=== PATIENT | female | born 1965 | race Caucasian/White ===

== ENCOUNTER 2018-04-30 10:40 | Emergency (ER) | payer OTHER ==
[~2018-04-30] VITALS: Ht 170.2 cm; Wt 113.4 kg
[~2018-04-30 10:40] MED LIST: CRESTOR20 MG PO; CYMBALTA60 MG PO; GABAPENTIN600 MG PO; KEFLEX500 MG PO; LAMICTAL100 MG PO; LANTUS100 UNITS/ SUB-Q; METFORMIN HCL1000 MG PO; NOVOLOG100 UNIT/2; OMEPRAZOLE40 MG PO; PLAVIX75 MG PO; PROTONIX40 MG PO; XANAX0.5 MG PO; ZANAFLEX4 M1 PO; ZESTRIL2.5 MG PO
--- OUTSIDE RECORDS SUMMARY | 2018-04-30 10:42 | XMS ---
PreManage Notification: LINH PEDRAZA Security Appliance Adjuster Events No recent Security Events currently on file CRITERIA MET - [facility] - Has Care Guidelines CARE PROVIDERS Odette Carter Leadership Recruiter/Ear Nose And Throat Specialist 02/05/2018-Current PHONE: [phone] Odette Carter Primary Care 02/05/2018-Current PHONE: [phone] Isabela has no Care Guidelines for this patient. Care History Medical/Surgical 12/27/2017 [facility] - MINDY CHILDRESS RECEIVED ORDER FROM ED PHYSICIAN TO HELP PATIENT ESTABLISH WITH A PCP. PATIENT JUST MOVED TO THE AREA AND IS DIABETIC. - [place] CALLED AND LEFT PATIENT A VOICEMAIL ON 12/26/17. - W WILL SEND OUT NO PCP LETTER TO PATIENT. E.D. VISIT COUNT (12 MO.) 2 KRIS Huffman TOTAL 2 NOTE: Visits indicate total known visits. ED/UCC VISIT TRACKING (12 MO.) 04/30/2018 10:41 [facility] Garg [place] TYPE: Emergency COMPLAINT: - COLD SYMPTOMS 12/24/2017 20:15 [facility] [place] TYPE: Emergency COMPLAINT: - L FOOT PAIN/NO INJURY DIAGNOSES: - Personal history of nicotine dependence - Allergy status to penicillin - Other meterman (current) drug therapy - Hyperlipidemia, unspecified - Type 2 diabetes mellitus with diabetic neuropathy, unspecified - Non-pressure chronic ulcer of other part of left foot with unspecified severity - meterman (current) use of oral hypoglycemic drugs - Chronic obstructive pulmonary disease, unspecified - group home (current) use of insulin - Acute bronchitis, unspecified - Allergy status to narcotic agent status - Non-pressure chronic ulcer of other part of left foot with unspecified severity - Allergy status to other antibiotic agents status - Essential (primary) hypertension - Type 2 diabetes mellitus with foot ulcer INPATIENT VISIT TRACKING (12 MO.) No inpatient visits to display in this time frame [email or web address]
[2018-04-30] MEDS ORDERED: PIOGLITAZONE HC15 MG PO (11:04)
[2018-04-30] MEDS ORDERED: ATORVASTATIN CA80 MG PO (11:05)
[2018-04-30] MEDS ORDERED: COMBIVENT RESPIM4 GM INH (13:20)
[2018-04-30] MEDS ORDERED: DOXYCYCLINE HY100 MG PO (13:20)
[2018-04-30] MEDS ORDERED: PREDNISONE20 MG PO (13:20)
== END 2018-04-30 13:45 | disposition home or self-care (01) ==
LOC: ED 10:40
DX: J44.1 Chronic obstructive pulmonary disease with (acute) exacerbation (principal); E11.40 Type 2 diabetes mellitus with diabetic neuropathy, unspecified; I10 Essential (primary) hypertension; E78.5 Hyperlipidemia, unspecified; Z90.710 Acquired absence of both cervix and uterus; Z87.891 Personal history of nicotine dependence; Z88.0 Allergy status to penicillin; Z88.1 Allergy status to other antibiotic agents; Z88.5 Allergy status to narcotic agent; Z79.899 Other long term (current) drug therapy; Z79.4 Long term (current) use of insulin
CPT/HCPCS: 71046; 94640; 99283-25; J7512

== ENCOUNTER 2018-06-02 16:15 | Emergency (ER) | payer OTHER ==
[~2018-06-02] VITALS: Ht 170.2 cm; Wt 113.4 kg
--- OUTSIDE RECORDS SUMMARY | ~2018-06-02 | XMS | Clinical Summary ---
Demographics + + + | Address | [address] | | | [place] [address] | + + + | Home Phone | | + + + | Preferred Language | Unknown | + + + | Marital Status | Unknown | + + + | Christian Affiliation | Unknown | + + + | Race | Unknown | + + + | Ethnic Group | Unknown | + + + Author + + + | Author | [employer] | + + + | Organization | [facility] [employer] | + + + | Address | Unknown | + + + | Phone | Unavailable | + + + Care Team Providers + +------+ + | Care Patternmaker Helper Name | Role | Phone | + +------+ + | Shay Palomino DPM | PP | | + +------+ + Allergies Not on File Current Medications Not on file Active Problems Not on file Encounters +--------+ + + + + | Date | Type | Specialty | Care Team | Description | +--------+ + + + + | 04/24/ | Telephone | | [place], | | | 2019 | | | SOPHIA Orozco | | +--------+ + + + + from Last 3 Months Social History + +-------+ +--------+------+ | Tobacco [...] | + + + Plan of Treatment +--------+ + + + + | Date | Type | Specialty | Care Team | Description | +--------+ + + + + | 06/06/ | Appointment | | | | | 2018 | | | | | +--------+ + + + + | 06/06/ | Initial | | Joel Boucher MD | | | 2018 | consult | | [address] | | | | | | [place] | | | | | | [phone] | | | | | | | | +--------+ + + + + + + + + + | Health Maintenance | Due Date | Last Done | Comments | + + + + + | Vaccine: | 11/21/198 | | | | Dtap/Tdap/Td (1 - [...] Vaccine: Influenza | | | | | (#1) | 8 | | | + + + + [...] | + +--------+ +--------+ + + | MILO,LINH | Person | Self | [birth year] | Home: | [address] | | | al/[place] | | 1965 | [phone] | [place] [address] | | | [place] | | | [phone] | | + +--------+ +--------+ + +"
--- OUTSIDE RECORDS SUMMARY | ~2018-06-02 | XMS | Clinical Summary ---
Demographics + + + | Address | [address] | | | [place] [address] | + + + | Home Phone | | + + + | Preferred Language | Unknown | + + + | Marital Status | Unknown | + + + | Baptism Affiliation | Unknown | + + + | Race | Unknown | + + + | Ethnic Group | Unknown | + + + Author + + + | Author | [employer] | + + + | Organization | [facility] [employer] | + + + | Address | Unknown | + + + | Phone | Unavailable | + + + Care Team Providers + +------+ + | Care Processor Grain Name | Role | Phone | + [...] [place] | | | | | | [phone] | | | | | | | [...] | 1965 | [phone] | [place] [address] | | | [place] | | | [phone] | | + +--------+ +--------+ + +"
--- OUTSIDE RECORDS SUMMARY | ~2018-06-02 | XMS | Encounter Summary ---
Demographics + + + | Address | [address] | | | [place] [address] | + + + | Home Phone | | + + + | Preferred Language | Unknown | + + + | Marital Status | Unknown | + + + | Orthodoxy Affiliation | Unknown | + + + | Race | Unknown | + + + | Ethnic Group | Unknown | + + + Author + + + | Author | [employer] | + + + | Organization | [facility] | + + + | Address | Unknown | + + + | Phone | Unavailable | + + + Care Team Providers + +------+ + | Care Sweatband Perforator Name | Role | Phone | + +------+ + | Shay Palomino DPM | PCP | | + +------+ + Encounter Details +--------+ + + + + | Date | Type | Department | Care Team | Description | +--------+ + + + + | 04/24/ | Telephone | [facility] | [place], | | | 2018 | | Vascular Surgery | SOPHIA Orozco | | | | | [address] | | | | | | [place] | | | | | | [address] | | | | | | [phone] | | | +--------+ + + + [...] on file | | + + + as of this encounter Plan of Treatment +--------+ + + + + | Date | Type | Specialty | Care Team | Description | +--------+ + + + + | 06/06/ | Appointment | Radiology | | | | 2018 | | | | | +--------+ + + + + | 06/06/ | Initial | Vascular Surgery | Joel Boucher MD | | | 2019 | consult | | [address] | | | | | | [place] | | | | | | [phone] | | | | | | | | +--------+ + + + + + +--------+ + + | Name | Priori | Associated Diagnoses | Order Schedule | | | ty | | | + +--------+ + + | US Low Ext Art Bilat w KATHY | Routin | PVD (peripheral | Expected: | | resting | e | vascular disease) | 04/24/2018, Expires: | | | | ([facility]) | 06/22/2018 | + +--------+ + + as of this encounter Visit Diagnoses + + | Diagnosis | + + | PVD (peripheral vascular disease) ([facility]) - Primary | + + | Peripheral vascular disease, unspecified | + +"
--- OUTSIDE RECORDS SUMMARY | ~2018-06-02 | XMS | Encounter Summary ---
Demographics + + + | Address | [address] | | | [place] [address] | + + + | Home Phone | | + + + | Preferred Language | Unknown | + + + | Marital Status | Unknown | + + + | Scientology Affiliation | Unknown | + + + | Race | Unknown | + + + | Ethnic Group | Unknown | + + + Author + + + | Author | [employer] | + + + | Organization | [employer] | + + + | Address | Unknown | + + + | Phone | Unavailable | + + + Care Team Providers + +------+ + | Care Fisher Sponge Hooking Name | Role | Phone | + +------+ + | Shay Palomino DPM | PCP | | + +------+ + Encounter Details +--------+ + + + + | Date | Type | Department | Care Team | Description | +--------+ + + + + | 04/24/ | Telephone | [facility] | [place], | | | 2018 | | Vascular Surgery | SOPHIA Orozco | | | | | [address] | | | | | | [place] | | | | | | [address] | | | | | | [phone] | | | +--------+ + + + [...] [place] | | | | | | [id number] | | | | | | | [...] Expires: | | | | ([facility]) | 06/22/2018 | + +--------+ + + as of this encounter Visit Diagnoses + + | Diagnosis | + + | PVD (peripheral vascular disease) ([facility]) - Primary | + + | Peripheral vascular disease, unspecified | + +"
[~2018-06-02 16:15] MED LIST changes: +ATORVASTATIN CA80 MG PO; +COMBIVENT RESPIM4 GM INH; +DOXYCYCLINE HY100 MG PO; +PIOGLITAZONE HC15 MG PO; +PREDNISONE20 MG PO
--- OUTSIDE RECORDS SUMMARY | 2018-06-02 16:18 | XMS ---
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 Care History Medical/Surgical 12/27/2017 [facility] - MINDY CHILDRESS RECEIVED ORDER FROM ED PHYSICIAN TO HELP PATIENT ESTABLISH WITH A PCP. PATIENT JUST MOVED TO THE AREA AND IS DIABETIC. - [place] CALLED AND LEFT PATIENT A VOICEMAIL ON 12/26/17. - W WILL SEND OUT NO PCP LETTER TO PATIENT. [place] VISIT COUNT (12 MO.) 3 KRIS Huffman TOTAL 3 NOTE: Visits indicate total known visits. ED/UCC VISIT TRACKING (12 MO.) 06/02/2018 16:16 [facility] Garg [place] TYPE: Emergency COMPLAINT: - NAUSEA/VOMITTING/COUGH 04/30/2018 10:41 [facility] Garg [place] TYPE: Emergency COMPLAINT: - COLD SYMPTOMS DIAGNOSES: - Hyperlipidemia, unspecified - Personal history of nicotine dependence - Acquired absence of both cervix and uterus - Allergy status to narcotic agent status - Allergy status to penicillin - Allergy status to other antibiotic agents status - termite treater (current) use of insulin - Type 2 diabetes mellitus with diabetic neuropathy, unspecified - Other superintendent terminal (current) drug therapy - Chronic obstructive pulmonary disease with (acute) exacerbation - Cough - Essential (primary) hypertension 12/24/2017 20:15 [facility] [place] TYPE: Emergency COMPLAINT: - L FOOT PAIN/NO INJURY DIAGNOSES: - Personal history of nicotine dependence - Allergy status to penicillin - Other superintendent terminal (current) drug therapy - Hyperlipidemia, unspecified - Type 2 diabetes mellitus with diabetic neuropathy, unspecified - Non-pressure chronic ulcer of other part of left foot with unspecified severity - termite treater (current) use of oral hypoglycemic drugs - Chronic obstructive pulmonary disease, unspecified - longterm (current) use of insulin - Acute bronchitis, unspecified - Allergy status to narcotic agent status - Non-pressure chronic ulcer of other part of left foot with unspecified severity - Allergy status to other antibiotic agents status - Essential (primary) hypertension - Type 2 diabetes mellitus with foot ulcer INPATIENT VISIT TRACKING (12 MO.) No inpatient visits to display in this time frame [id number]
[2018-06-02] MEDS ORDERED: PROMETHAZINE HC25 M1 PO ×2 (17:22→18:53)
[2018-06-02] MEDS ORDERED: FLAGYL500 MG PO (18:49)
[2018-06-02] MEDS ORDERED: CIPRO500 MG PO (18:49)
== END 2018-06-02 19:45 | disposition home or self-care (01) ==
LOC: ED 16:15
DX: K57.32 Diverticulitis of large intestine without perforation or abscess without bleeding (principal); E11.40 Type 2 diabetes mellitus with diabetic neuropathy, unspecified; J44.9 Chronic obstructive pulmonary disease, unspecified; I10 Essential (primary) hypertension; E78.5 Hyperlipidemia, unspecified; Z87.891 Personal history of nicotine dependence; Z90.710 Acquired absence of both cervix and uterus; Z90.49 Acquired absence of other specified parts of digestive tract; Z88.0 Allergy status to penicillin; Z88.1 Allergy status to other antibiotic agents; Z88.5 Allergy status to narcotic agent; Z79.899 Other long term (current) drug therapy; Z79.84 Long term (current) use of oral hypoglycemic drugs
CPT/HCPCS: 74176; 80053; 83690; 85025; 96361; 96374; 96375; 99284-25; J1885; J2405; J2550; J7030

== ENCOUNTER 2019-05-12 17:53 | Emergency (ER) | payer OTHER ==
[~2019-05-12] VITALS: Ht 170.2 cm; Wt 119.8 kg
[~2019-05-12 17:53] MED LIST changes: +CIPRO500 MG PO; +FLAGYL500 MG PO; +INSULIN PEN NE1 EAC1 MISC; +PROMETHAZINE HC25 M1 PO
[2019-05-12] MEDS ORDERED: PREDNISONE20 MG PO (20:58)
--- NOTE | 2019-05-13 13:10 | EKG ---
[facility] [address], [place] [address] Signed Sinus tachycardia Left axis deviation Anterolateral infarct , possible, similar to 03/13/19 EKG. Abnormal ECG When compared with ECG of 13-MAR-2019 11:26, No significant change was found Confirmed by JOHN ARIZA MD ([id number]) on 05/13/2019 1:10:03 PM Electronically Signed By: JOHN ARIZA MD 05/13/19 1310 PATIENT NAME: LINH PEDRAZA Electrocardiogram DATE OF : 65 PHYSICIAN: JOHN ARIZA MD REPORT #: [id number] REPORT IS CONFIDENTIAL AND NOT TO BE RELEASED WITHOUT AUTHORIZATION
== END 2019-05-12 21:33 | disposition home or self-care (01) ==
LOC: ED 17:53
DX: J44.0 Chronic obstructive pulmonary disease with (acute) lower respiratory infection (principal); J20.9 Acute bronchitis, unspecified; E11.40 Type 2 diabetes mellitus with diabetic neuropathy, unspecified; I10 Essential (primary) hypertension; E78.5 Hyperlipidemia, unspecified; Z87.891 Personal history of nicotine dependence; Z88.0 Allergy status to penicillin; Z88.5 Allergy status to narcotic agent; Z79.899 Other long term (current) drug therapy
CPT/HCPCS: 71045; 80053; 83735; 83880; 84484; 85025; 87502; 93005; 93010; 94640; 96374; 96375; 99285-25; J1940; J2930

== ENCOUNTER 2019-07-16 22:51 | Emergency (ER) | payer OTHER ==
[~2019-07-16] VITALS: Ht 170.2 cm; Wt 120.3 kg
--- OUTSIDE RECORDS SUMMARY | ~2019-07-16 | XMS | Clinical Summary ---
Demographics + + + | Address | [address] | | | [place] [address] | + + + | Home Phone | | + + + | Preferred Language | Unknown | + + + | Marital Status | Unknown | + + + | Druze Affiliation | Unknown | + + + | Race | Unknown | + + + | Ethnic Group | Unknown | + + + Author + + + | Author | [facility] (Historical as of | | | 10-28-18) | + + + | Organization | [facility] (Historical as of | | | 10-28-18) | + + + | Address | Unknown | + + + | Phone | Unavailable | + + + Care Team Providers + +------+ + | Care Aviation Electrician Name | Role | Phone | + +------+ + | Shay Palomino DPM | PP | | + +------+ + Allergies Not on File Current Medications + + +-------+---------+------+------+-------+ | Prescription | Sig. | Disp. | Refills | Star | End | Statu | | | | | | t | Date | s | | | | | | Date | | | + + +-------+---------+------+------+-------+ | atorvastatin | Take 80 mg by mouth | | 0 | 02/0 | | Activ | | (LIPITOR) 80 MG | daily. | | | 6/20 | | e | | tablet | | | | 19 | | | + + +-------+---------+------+------+-------+ | clopidogrel | | | 0 | 02/0 | | Activ | | (PLAVIX) 75 MG | | | | 6/20 | | e | | tablet | | | | 19 | | | + + +-------+---------+------+------+-------+ | doxycycline | Take 100 mg by mouth | | 0 | 02/1 | | Activ | | (ADOXA) 100 MG | 2 (two) times | | | 7/20 | | e | | tablet | daily. | | | 19 | | | + + +-------+---------+------+------+-------+ | DULoxetine | | | 0 | 02/0 | | Activ | | (CYMBALTA) [address] | | | | 6/20 | | e | | capsule | | | | 19 | | | + + +-------+---------+------+------+-------+ | FLOVENT HFA 110 | 1 puff 2 (two) times | | 0 | 02/2 | | Activ | | MCG/ACT inhaler | daily. | | | 7/20 | | e | | | | | | 19 | | | + + +-------+---------+------+------+-------+ | LANTUS 100 UNIT/ML | | | 0 | 02/0 | | Activ | | injection | | | | 6/20 | | e | | | | | | 19 | | | + + +-------+---------+------+------+-------+ | levofloxacin | Take 500 mg by mouth | | 0 | 03/2 | | Activ | | (LEVAQUIN) 500 MG | daily. for 10 days | | | 3/20 | | e | | tablet | | | | 19 | | | + + +-------+---------+------+------+-------+ | lisinopril | | | 0 | 02/0 | | Activ | | (ZESTRIL) 10 MG | | | | 6/20 | | e | | tablet | | | | 19 | | | + + +-------+---------+------+------+-------+ | metFORMIN | | | 0 | 02/0 | | Activ | | (GLUCOPHAGE) 1000 MG | | | | 6/20 | | e | | tablet | | | | 19 | | | + + +-------+---------+------+------+-------+ | metroNIDAZOLE | Take 500 mg by mouth | | 0 | 03/2 | | Activ | | (FLAGYL) 500 MG | 3 (three) times | | | 3/20 | | e | | tablet | daily. | | | 19 | | | + + +-------+---------+------+------+-------+ | ondansetron | Take 8 mg by mouth | | 0 | 03/1 | | Activ | | (ZOFRAN) 8 MG tablet | every 8 (eight) | | | 3/20 | | e | | | hours as needed. FOR | | | 19 | | | | | NAUSEA | | | | | | + + +-------+---------+------+------+-------+ | pioglitazone | | | 0 | 02/0 | | Activ | | (ACTOS) 15 MG tablet | | | | 6/20 | | e | | | | | | 19 | | | + + +-------+---------+------+------+-------+ | predniSONE | TAKE 2 TABLETS BY | | 0 | 02/1 | | Activ | | (DELTASONE) 20 MG | MOUTH DAILY FOR 3 | | | 7/20 | | e | | tablet | DAYS THEN 1 DAILY | | | 19 | | | | | FOR 3 DAYS | | | | | | + + +-------+---------+------+------+-------+ | promethazine | Take 25 mg by mouth | | 0 | 03/2 | | Activ | | (PHENERGAN) 25 MG | 3 (three) times | | | 3/20 | | e | | tablet | daily. | | | 19 | | | + + +-------+---------+------+------+-------+ | ranitidine | Take 150 mg by mouth | | 0 | 02/2 | | Activ | | (ZANTAC) 150 MG | daily. | | | 1/20 | | e | | tablet | | | | 19 | | | + + +-------+---------+------+------+-------+ | tiZANidine | take 1/2 to 1 tablet | | 0 | 02/2 | | Activ | | (ZANAFLEX) 4 MG | by mouth three | | | 1/20 | | e | | tablet | times a day if | | | 19 | | | | | needed AND TOLERATED | | | | | | + + +-------+---------+------+------+-------+ Active Problems Not on file Social History + +-------+ +--------+------+ | Tobacco Use | Types | Packs/Day | Years | Date | | | | | Used | | + +-------+ +--------+------+ | Never Assessed | | | | | + +-------+ +--------+------+ + + + | Sex Assigned at | Date Recorded | | | | + + + | Not on file | | + + + Plan of Treatment + + + + + | Health Maintenance | Due Date | Last Done | Comments | + + + + + | Vaccine: | | | | | Dtap/Tdap/Td (1 - | 4 | | | | Tdap) | | | | + + + + + | Cervical Cancer | | | | | Screening (Pap) | 5 | | | + + + + + | Breast Cancer | | | | | Screening | 5 | | | | (Mammogram) | | | | + + + + + | Colon Cancer | | | | | Screening | 5 | | | | (Colonoscopy) | | | | + + + + + | Vaccine: Zoster (1 | | | | | of 2) | 5 | | | + + + + + | Vaccine: Influenza | | | | | (Season Ended) | 0 | | | + + + + + Results Not on filefrom Last 3 Months Insurance + +--------+ +------+-------+---------+ | Payer | Benefi | Subscriber | Type | Phone | Address | | | t Plan | ID | | | | | | / | | | | | | | Group | | | | | + +--------+ +------+-------+---------+ | [employer] | [employer] | | | | | | | HEALTH | | | | | | | PLAN | | | | | + +--------+ +------+-------+---------+ + +--------+ +--------+ + + | Guarantor Name | Accoun | Relation to | Date | Phone | Billing Address | | | t Type | Patient | of | | | | | | | | | | + +--------+ +--------+ + + | LINH PEDRAZA | Person | Self [birth year] | Home: | [address] | | | al/Fam | | 1965 | [phone] [place] [address] | | | [place] | | | [phone] | | + +--------+ +--------+ + +"
--- OUTSIDE RECORDS SUMMARY | ~2019-07-16 | XMS | Clinical Summary ---
Demographics + + + | Address | [address] | | | [place] [address] | + + + | Home Phone | | + + + | Preferred Language | Unknown | + + + | Marital Status | Unknown | + + + | Mormonism Affiliation | Unknown | + + + | Race | Unknown | + + + | Ethnic Group | Unknown | + + + Author + + + | Author | [facility] | | | and [place] | + + + | Organization | [facility] | | | and [place] | + + + | Address | Unknown | + + + | Phone | Unavailable | + + + Support + + +---------+ + | Name | Relationship | Address | Phone | + + +---------+ + | Hortensia Yin | ECON | Unknown | | + + +---------+ + Care Team Providers + +------+ + | Care Office Machine Servicer Name | Role | Phone | + +------+ + | Dawson Almaguer MD | PCP | | + +------+ + Allergies Not on File Medications + + + +---------+------+------+-------+ | Medication | Sig | Dispensed | Refills | Star | End | Statu | | | | | | t | Date | s | | | | | | Date | | | + + + +---------+------+------+-------+ | atorvaSTATin | Take 80 mg by mouth | | 0 | 02/0 | | Activ | | (LIPITOR) 80 MG | daily. | | | 6/20 | | e | | tablet | | | | 19 | | | + + + +---------+------+------+-------+ | clopidogrel | | | 0 | 02/0 | | Activ | | (PLAVIX) 75 mg | | | | 6/20 | | e | | tablet | | | | 19 | | | + + + +---------+------+------+-------+ | doxycycline | Take 100 mg by mouth | | 0 | 02/1 | | Activ | | (ADOXA) 100 MG | 2 (two) times | | | 7/20 | | e | | tablet | daily. | | | 19 | | | + + + +---------+------+------+-------+ | DULoxetine | | | 0 | 02/0 | | Activ | | (CYMBALTA) [address] | | | | 6/20 | | e | | capsule | | | | 19 | | | + + + +---------+------+------+-------+ | FLOVENT HFA 110 | 1 puff 2 (two) times | | 0 | 02/2 | | Activ | | MCG/ACT inhaler | daily. | | | 20 | | e | | | | | | 19 | | | + + + +---------+------+------+-------+ | LANTUS 100 UNIT/ML | | | 0 | 02/0 | | Activ | | injection (vial) | | | | 6/20 | | e | | | | | | 19 | | | + + + +---------+------+------+-------+ | levoFLOXacin | Take 500 mg by mouth | | 0 | 03/2 | | Activ | | (LEVAQUIN) 500 mg | daily. for 10 days | | | 3/20 | | e | | tablet | | | | 19 | | | + + + +---------+------+------+-------+ | lisinopril | | | 0 | 02/0 | | Activ | | (PRINIVIL, ZESTRIL) | | | | 6/20 | | e | | 10 mg tablet | | | | 19 | | | + + + +---------+------+------+-------+ | metFORMIN | | | 0 | 02/0 | | Activ | | (GLUCOPHAGE) 1000 MG | | | | 6/20 | | e | | tablet | | | | 19 | | | + + + +---------+------+------+-------+ | metroNIDAZOLE | Take 500 mg by mouth | | 0 | 03/2 | | Activ | | (FLAGYL) 500 MG | 3 (three) times | | | 3/20 | | e | | tablet | daily. | | | 19 | | | + + + +---------+------+------+-------+ | ondansetron | Take 8 mg by mouth | | 0 | 03/1 | | Activ | | (ZOFRAN) 8 MG tablet | every 8 (eight) | | | 3/20 | | e | | | hours as needed. FOR | | | 19 | | | | | NAUSEA | | | | | | + + + +---------+------+------+-------+ | pioglitazone | | | 0 | 02/0 | | Activ | | (ACTOS) 15 mg tablet | | | | 6/20 | | e | | | | | | 19 | | | + + + +---------+------+------+-------+ | predniSONE | TAKE 2 TABLETS BY | | 0 | 02/1 | | Activ | | (DELTASONE) 20 mg | MOUTH DAILY FOR 3 | | | 7/20 | | e | | tablet | DAYS THEN 1 DAILY | | | 19 | | | | | FOR 3 DAYS | | | | | | + + + +---------+------+------+-------+ | promethazine | Take 25 mg by mouth | | 0 | 03/2 | | Activ | | (PHENERGAN) 25 mg | 3 (three) times | | | 3/20 | | e | | tablet | daily. | | | 19 | | | + + + +---------+------+------+-------+ | raNITIdine | Take 150 mg by mouth | | 0 | 02/2 | | Activ | | (ZANTAC) 150 mg | daily. | | | 1/20 | | e | | tablet | | | | 19 | | | + + + +---------+------+------+-------+ | tiZANidine | take 1/2 to 1 tablet | | 0 | 02/2 | | Activ | | (ZANAFLEX) 4 mg | by mouth three | | | 1/20 | | e | | tablet | times a day if | | | 19 | | | | | needed AND TOLERATED | | | | | | + + + +---------+------+------+-------+ Active Problems Not on file Social History [...] on file | | + + + + + + + | Job Start Date | Occupation | Industry | + + + + | Not on file | Not on file | Not on file | + + + + + + + + | Travel History | Travel Start | Travel End | + + + + + + | No recent travel history available. | + + Last Filed Vital Signs Not on file Plan of Treatment + + + + + | Health Maintenance | Due Date | Last Done | Comments | + + + + + | Vaccine: | | | | | Dtap/Tdap/Td (1 - | 6 | | | | Tdap) | | | | + + + + + | Cervical Cancer | | | | | Screening (Pap) | 5 | | | + + + + + | Breast Cancer | | | | | Screening | 0 | | | + + + + + | Vaccine: Zoster (1 | | | | | of 2) | 5 | | | + + + + + | Vaccine: Influenza | | | | | (Season Ended) | 0 | | | + + + + + Results Not on filefrom Last 3 Months Insurance + +--------+ +--------+ +---------+--------+ | Payer | Benefi | Subscriber | Effect | Phone | Address | Type | | | t Plan | ID | curtis | | | | | | / | | Dates | | | | | | Group | | | | | | + +--------+ +--------+ +---------+--------+ | [employer] | MODA | [id number] | | [phone] | | Medica | | MEDICAID HMO | HEALTH | | [id number]-[id number] | 1 | | id | | | MDCD | | esent | | | | | | [place]MO [place] | | | | | | + +--------+ +--------+ +---------+--------+ + +--------+ +--------+ + + | Guarantor Name | Accoun | Relation to | Date | Phone | Billing Address | | | t Type | Patient | of | | | | | | | | | | + +--------+ +--------+ + + | Maria D Lorenzana | Person | Self [birth year] | [address] [facility] [address] | | | al/Fam | | 1965 | [phone] | [place] [address] | | | [place] | | | [address] (Home) | | + +--------+ +--------+ + +"
--- OUTSIDE RECORDS SUMMARY | ~2019-07-16 | XMS | Encounter Summary ---
Demographics + + + | Address | [address] | | | [place] [address] | + + + | Home Phone | | + + + | Preferred Language | Unknown | + + + | Marital Status | Unknown | + + + | Cheondoism Affiliation | Unknown | + + + | Race | Unknown | + + + | Ethnic Group | Unknown | + + + Author + + + | Author | [facility] | | | and [place] | + + + | Organization | [facility] | | | and [place] | [...] Team Providers + +------+ + | Care Aquaculture And Fisheries Professor Name | Role | Phone | + +------+ + | Dawson Almaguer MD | PCP | | + +------+ + Encounter Details +--------+ + + + + | Date | Type | Department | Care Team | Description | +--------+ + + + + | 06/06/ | Orders Only | [facility] | Conversion | | | 2019 | | CONVERSION DEP [address] | Transaction, | | | | | [address] | Provider Unknown | | | | | [place] | [phone] | | | | | [address] | | | | | | [phone] | | | +--------+ + + + [...] recent travel history available. | + + documented as of this encounter Plan of Treatment Not on filedocumented as of this encounter Visit Diagnoses Not on filedocumented in this encounter"
--- OUTSIDE RECORDS SUMMARY | ~2019-07-16 | XMS | Clinical Summary ---
Demographics + + + | Address | [address] | | | [place] [address] | + + + | Home Phone | | + + + | Preferred Language | Unknown | + + + | Marital Status | Unknown | + + + | Evangelical Affiliation | Unknown | + + + | Race | Unknown | + + + | Ethnic Group | Unknown | + + + Author + + + | Author | [facility] | | | and [place] | + + + | Organization | [facility] | | | and [place] [...] Team Providers + +------+ + | Care Telegraph Lineman Name | Role | Phone | + [...] | [employer] | MODA | [id number] | | [phone] | | Medica | [...] Self | [birth year] | [address] [facility] | | | al/Fam | | 1965 | [phone] | [place] [address] | | | [place] | | | 7 (Home) | | + +--------+ +--------+ + +"
--- OUTSIDE RECORDS SUMMARY | ~2019-07-16 | XMS | Clinical Summary ---
Demographics + + + | Address | [address] | | | [place] [address] | + + + | Home Phone | | + + + | Preferred Language | Unknown | + + + | Marital Status | Unknown | + + + | Shinto Affiliation | Unknown | + + + | Race | Unknown | + + + | Ethnic Group | Unknown | + + + Author + + + | Author | [facility] [employer] (Historical as of | | | 10-28-18) | + + + | Organization | [facility] [employer] (Historical as of | | | 10-28-18) | + + + | Address | Unknown | + + + | Phone | Unavailable | + + + Care Team Providers + +------+ + | Care Employee Communications Coordinator Name | Role | Phone | [...] | 1965 | [phone] | [place] [address] | | | [place] | | | [phone] | | + +--------+ +--------+ + +"
--- OUTSIDE RECORDS SUMMARY | ~2019-07-16 | XMS | Encounter Summary ---
Demographics + + + | Address | [address] | | | [place] [address] | + + + | Home Phone | | + + + | Preferred Language | Unknown | + + + | Marital Status | Unknown | + + + | Confucianist Affiliation | Unknown | + + + | Race | Unknown | + + + | Ethnic Group | Unknown | + + + Author + + + | Author | [facility] | | | and [place] | + + + | Organization | [facility] | | | and [place] [...] Team Providers + +------+ + | Care Heavy Equipment Plumbing Supervisor Name | Role | Phone | + [...] | | | | [place] | [phone] | | | | | [phone] | | | | | | [phone] | | | +--------+ + + + [...]
[~2019-07-16 22:51] MED LIST changes: +BASAGLAR K100 UNIT/1; +CARVEDILOL6.25 MG PO; +FAMOTIDINE20 MG PO; +FLOVENT HFA12 GM INH; +FUROSEMIDE40 MG PO; +ONDANSETRON ODT8 MG PO
--- OUTSIDE RECORDS SUMMARY | 2019-07-16 22:54 | XMS ---
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 Care History Medical/Surgical 06/06/2018 [facility] - PATIENT PCP HAS MADE A REFERRAL TO [facility]- PATIENT STARTS PULMONARY REHAB ON 06/20/18. 12/27/2017 [facility] - [facility] RECEIVED ORDER FROM ED PHYSICIAN TO HELP PATIENT ESTABLISH WITH A PCP. PATIENT JUST MOVED TO THE AREA AND IS DIABETIC. - [place] CALLED AND LEFT PATIENT A VOICEMAIL ON 12/26/17. - W WILL SEND OUT NO PCP LETTER TO PATIENT. E.D. VISIT COUNT (12 MO.) [address] [facility] TOTAL 4 NOTE: Visits indicate total known visits. ED/UCC VISIT TRACKING (12 MO.) 07/16/2019 22:51 [facility] [place] TYPE: Emergency COMPLAINT: - N/V 05/29/2019 15:33 [facility] [place] TYPE: Emergency COMPLAINT: - CHEST PRESSURE/PAIN DIAGNOSES: - Personal history of nicotine dependence - Hypertensive heart and chronic kidney disease with heart fail - Hyperlipidemia, unspecified - Chronic kidney disease, stage 3 (moderate) - Type 2 diabetes mellitus with diabetic chronic kidney disease - Chronic obstructive pulmonary disease, unspecified - Allergy status to penicillin - Other extermination supervisor (current) drug therapy - Type 2 diabetes mellitus with diabetic neuropathy, unspecifie - Allergy status to narcotic agent status - Noninfective gastroenteritis and colitis, unspecified - Nausea with vomiting, unspecified - Heart failure, unspecified 05/12/2019 17:53 [facility]arg [place] TYPE: Emergency COMPLAINT: - COUGH/ SOB DIAGNOSES: - Other extermination supervisor (current) drug therapy - Acute bronchitis, unspecified - Hyperlipidemia, unspecified - Chronic obstructive pulmonary disease with acute lower respir - Type 2 diabetes mellitus with diabetic neuropathy, unspecifie - Personal history of nicotine dependence - Allergy status to penicillin - Allergy status to narcotic agent status - Shortness of breath - Essential (primary) hypertension 10/18/2018 19:50 [facility] [place] TYPE: Emergency COMPLAINT: - NAUSEA,VOMITING X3 DAYS INPATIENT VISIT TRACKING (12 MO.) 10/18/2018 19:[address] [facility] [place] TYPE: Observation COMPLAINT: - ACUTE KIDNEY INJURY DIAGNOSES: - Allergy status to narcotic agent status - Type 2 diabetes mellitus with diabetic neuropathy, unspecifie - Obesity, unspecified - Chronic obstructive pulmonary disease, unspecified - Nausea with vomiting, unspecified - Essential (primary) hypertension - Nicotine dependence, unspecified, uncomplicated - Diarrhea, unspecified - Hyperlipidemia, unspecified - Dehydration - [facility] (current) use of antithrombotics/antiplatelets - Allergy status to other antibiotic agents status - Body mass index (BMI) 40.0-44.9, adult - Acute kidney failure, unspecified - Other extermination supervisor (current) drug therapy - Allergy status to penicillin - [facility] (current) use of insulin [email or web address]
[2019-07-17] MEDS ORDERED: ZOFRAN4 MG PO (02:59)
[2019-07-17] MEDS ORDERED: PROMETHAZINE HC25 M1 PO (02:59)
== END 2019-07-17 03:59 | disposition home or self-care (01) ==
LOC: ED 22:51
DX: K52.9 Noninfective gastroenteritis and colitis, unspecified (principal); E11.40 Type 2 diabetes mellitus with diabetic neuropathy, unspecified; J44.9 Chronic obstructive pulmonary disease, unspecified; E78.5 Hyperlipidemia, unspecified; E11.22 Type 2 diabetes mellitus with diabetic chronic kidney disease; I13.0 Hypertensive heart and chronic kidney disease with heart failure and stage 1 through stage 4 chronic kidney disease, or unspecified chronic kidney disease; N18.3 Chronic kidney disease, stage 3 (moderate); I50.9 Heart failure, unspecified; Z87.891 Personal history of nicotine dependence; Z88.0 Allergy status to penicillin; Z88.1 Allergy status to other antibiotic agents; Z88.5 Allergy status to narcotic agent; Z79.899 Other long term (current) drug therapy
CPT/HCPCS: 80053; 81001; 82010; 82800; 83735; 85025; 96361; 96374; 96375; 99284-25; J1790; J2405; J2550; J7030

== ENCOUNTER 2019-09-08 17:46 | Emergency (ER) | payer OTHER ==
[~2019-09-08] VITALS: Ht 170.2 cm; Wt 120.3 kg
--- OUTSIDE RECORDS SUMMARY | ~2019-09-08 | XMS | Clinical Summary ---
Demographics + + + | Address | [address] | | | [place] [address] | + + + | Home Phone | | + + + | Preferred Language | Unknown | + + + | Marital Status | Unknown | + + + | Jewish Affiliation | Unknown | + + + | Race | Unknown | + + + | Ethnic Group | Unknown | + + + Author + + + | Author | [facility] | | | and [place] | + + + | Organization | [facility] | | | and [place] [...] Team Providers + +------+ + | Care Digital Printer Operator Name | Role | Phone | + [...] on file | | + + + Last Filed Vital Signs Not on file Plan of Treatment + + +-------+ + | Health Maintenance | Due Date | Last | Comments | | | | Done | | + + +-------+ + | Vaccine: | | | | | Dtap/Tdap/Td (1 - | 4 | | | | Tdap) | | | | + + +-------+ + | Cervical Cancer | | | | | Screening (Pap) | 5 | | | + + +-------+ + | Breast Cancer | | | | | Screening | 0 | | | + + +-------+ + | Vaccine: Zoster (1 | | | | | of 2) | 5 | | | + + +-------+ + | Vaccine: Influenza | | | | | (Season Ended) | 0 | | | + + +-------+ + Results Not on filefrom Last 3 [...] | [employer] | MODA | [id number] | | [phone] | | Medica | | MEDICAID HMO [...] Self | [birth year] | [address] [employer]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
--- OUTSIDE RECORDS SUMMARY | ~2019-09-08 | XMS | Encounter Summary ---
Demographics + + + | Address | [address] | | | [place] [address] | + + + | Home Phone | | + + + | Preferred Language | Unknown | + + + | Marital Status | Unknown | + + + | Pentecostal Affiliation | Unknown | + + + | Race | Unknown | + + + | Ethnic Group | Unknown | + + + Author + + + | Author | [facility] | | | and [place] | + + + | Organization | [facility] | | | and [place] | [...] Team Providers + +------+ + | Care Weather Anchor Name | Role | Phone | + [...] | | | | [place] | [phone] | | | | | [phone] | | | | | | [phone] | | | +--------+ + + + [...]
[~2019-09-08 17:46] MED LIST changes: +ZOFRAN4 MG PO
--- OUTSIDE RECORDS SUMMARY | 2019-09-08 17:50 | XMS ---
PreManage Notification: LINH PEDRAZA Security Lathing Supervisor Events No recent Security Events currently on file CRITERIA MET - [facility] - Has Care Guidelines CARE PROVIDERS MILTON DASILVA [facility] 05/01/2018-Current PHONE: [phone] Rodrigo Dsouza Emt/Paramedic/Electrical Sign Wirer Helper 07/01/2018-Current PHONE: [phone] Isabela has no Care Guidelines for this patient. Care History Medical/Surgical 06/06/2018 [facility] - PATIENT PCP HAS MADE A REFERRAL TO [facility]- PATIENT STARTS PULMONARY REHAB ON 06/20/18. E.D. VISIT COUNT (12 MO.) 5 [facility] TOTAL 5 NOTE: Visits indicate total known visits. ED/UCC VISIT TRACKING (12 MO.) 09/08/2019 17:47 [facility] [place] TYPE: Emergency COMPLAINT: - NAUSEA,DIARRHEA 07/16/2019 22:51 [facility] [place] TYPE: Emergency COMPLAINT: - N/V DIAGNOSES: - Allergy status to other antibiotic agents status - Nausea with vomiting, unspecified - Chronic kidney disease, stage 3 (moderate) - Hyperlipidemia, unspecified - Other fci (current) drug therapy - Type 2 diabetes mellitus with diabetic chronic kidney disease - Allergy status to narcotic agent status - Chronic obstructive pulmonary disease, unspecified - Noninfective gastroenteritis and colitis, unspecified - Personal history of nicotine dependence - Hypertensive heart and chronic kidney disease with heart fail - Allergy status to penicillin - Type 2 diabetes mellitus with diabetic neuropathy, unspecifie - Heart failure, unspecified 05/29/2019 15:33 [facility] [place] TYPE: Emergency COMPLAINT: - CHEST PRESSURE/PAIN DIAGNOSES: - Personal history of nicotine dependence - Hypertensive heart and chronic kidney disease with heart fail - Hyperlipidemia, unspecified - Chronic kidney disease, stage 3 (moderate) - Type 2 diabetes mellitus with diabetic chronic kidney disease - Chronic obstructive pulmonary disease, unspecified - Allergy status to penicillin - Other network support analyst (current) drug therapy - Type 2 diabetes mellitus with diabetic neuropathy, unspecifie - Allergy status to narcotic agent status - Noninfective gastroenteritis and colitis, unspecified - Nausea with vomiting, unspecified - Heart failure, unspecified 05/12/2019 17:53 [facility] [place] TYPE: Emergency COMPLAINT: - COUGH/ SOB DIAGNOSES: - Other network support analyst (current) drug therapy - Acute bronchitis, unspecified [...] INPATIENT VISIT TRACKING (12 MO.) 10/18/2018 19:51 [facility] [place] TYPE: Observation COMPLAINT: - ACUTE KIDNEY INJURY DIAGNOSES: - Allergy status to narcotic agent status - Type 2 diabetes mellitus with diabetic neuropathy, unspecifie - Obesity, unspecified - Chronic obstructive pulmonary disease, unspecified - Nausea with vomiting, unspecified - Essential (primary) hypertension - Nicotine dependence, unspecified, uncomplicated - Diarrhea, unspecified - Hyperlipidemia, unspecified - Dehydration - MCC (current) use of antithrombotics/antiplatelets - Allergy status to other antibiotic agents status - Body mass index (BMI) 40.0-44.9, adult - Acute kidney failure, unspecified - Other network support analyst (current) drug therapy - Allergy status to penicillin - otolaryngology teacher (current) use of insulin [email or web address]
[2019-09-08] MEDS ORDERED: LISINOPRIL20 MG PO (23:13)
== END 2019-09-08 23:30 | disposition home or self-care (01) ==
LOC: ED 17:46
DX: R11.2 Nausea with vomiting, unspecified (principal); R19.7 Diarrhea, unspecified; I13.0 Hypertensive heart and chronic kidney disease with heart failure and stage 1 through stage 4 chronic kidney disease, or unspecified chronic kidney disease; E11.22 Type 2 diabetes mellitus with diabetic chronic kidney disease; E11.40 Type 2 diabetes mellitus with diabetic neuropathy, unspecified; I50.9 Heart failure, unspecified; N18.3 Chronic kidney disease, stage 3 (moderate); J44.9 Chronic obstructive pulmonary disease, unspecified; E78.5 Hyperlipidemia, unspecified; Z87.891 Personal history of nicotine dependence; Z88.0 Allergy status to penicillin; Z88.5 Allergy status to narcotic agent; Z88.1 Allergy status to other antibiotic agents; Z88.8 Allergy status to other drugs, medicaments and biological substances; Z79.899 Other long term (current) drug therapy; Z79.4 Long term (current) use of insulin
CPT/HCPCS: 74177; 80053; 81001; 83690; 83735; 85025; 96361; 96375; 96376; 99284-25; J1790; J2405; J2550; J7030; Q9967

== ENCOUNTER 2019-11-06 18:53 | Inpatient (IN) | payer OTHER ==
[~2019-11-06] VITALS: Ht 170.2 cm; Wt 120.8 kg
--- OUTSIDE RECORDS SUMMARY | ~2019-11-06 | XMS | Encounter Summary ---
Demographics + + + | Address | [address] | | | [place] [address] | + + + | Home Phone | | + + + | Preferred Language | Unknown | + + + | Marital Status | Single | + + + | Sikhism Affiliation | Unknown | + + + | Race | White | + + + | Ethnic Group | Not or | + + + Author + + + | Author | [facility] | | | and [place] | + + + | Organization | [facility] | | | and [place] | + + + | Address | Unknown | + + + | Phone | Unavailable | + + + Support + + +---------+ + | Name | Relationship | Address | Phone | + + +---------+ + | Hortensia Yin | ECON | Unknown | | + + +---------+ + Care Team Providers + +------+ + | Care Automation Qa Analyst Name | Role | Phone | + +------+ + | Dawson Almaguer MD | PCP | | + +------+ + Encounter Details +--------+ + + + + | Date | Type | Department | Care Team | Description | +--------+ + + + + | 09/18/ | Orders Only | [facility] | Gracia Kasper | | | 2020 | | CARDIOLOGY BRI Lock Flatbed Driver | | | | | [address] | | | | | | [place], [place] | | | | | | [address] | | | | | | [phone] | | | +--------+ + + + + Social History + +-------+ +--------+------+ | Tobacco Use | Types | Packs/Day | Years | Date | | | | | Used | | + +-------+ +--------+------+ | Light Tobacco Smoker | | | | | + +-------+ +--------+------+ + +---+---+---+ | Smokeless Tobacco: | | | | | Never Used | | | | + +---+---+---+ + + +---------+ + | Alcohol Use | Drinks/Week | oz/Week | Comments | + + +---------+ + | Not Currently | | | | + + +---------+ + + + + | Sex Assigned at | Date Recorded | | | | + + + | Not on file | | + + + documented as of this encounter Plan of Treatment Not on filedocumented as of this encounter Visit Diagnoses Not on filedocumented in this encounter"
--- OUTSIDE RECORDS SUMMARY | ~2019-11-06 | XMS | Encounter Summary ---
Demographics + + + | Address | [address] | | | [place] [address] | + + + | Home Phone | | + + + | Preferred Language | Unknown | + + + | Marital Status | Single | + + + | Latter-Day Affiliation | Unknown | + + + | Race | White | + + + | Ethnic Group | Not or | + + + Author + + + | Author | [facility] | | | and [place] | + + + | Organization | [facility] | | | and [...] Team Providers + +------+ + | Care Shipper Receiver Name | Role | Phone | + +------+ + | Dawson Almaguer MD | PCP | | + +------+ + Encounter Details +--------+ + + + + | Date | Type | Department | Care Team | Description | +--------+ + + + + | // | Orders Only | [facility] | Conversion | | | 2019 | | CONVERSION DEP [address] | Transaction, | | | | | [address] | Provider Unknown | | | | | [place] | [phone] | | | | | [address] | | | | | | [phone] | | | +--------+ + + + [...]
--- OUTSIDE RECORDS SUMMARY | ~2019-11-06 | XMS | Encounter Summary ---
Demographics + + + | Address | [address] | | | [place] [address] | + + + | Home Phone | | + + + | Preferred Language | Unknown | + + + | Marital Status | Single | + + + | Gnosticist Affiliation | Unknown | + + + | Race | White | + + + | Ethnic Group | Not or | + + + Author + + + | Author | [facility] | | | and [place] | + + + | Organization | [facility] | | | and [...] Team Providers + +------+ + | Care Chief Bank Examiner Name | Role | Phone | + +------+ + | Dawson Almaguer MD | PCP | | + +------+ + Encounter Details +--------+ + + + + | Date | Type | Department | Care Team | Description | +--------+ + + + + | 09/18/ | Orders Only | [facility] | Gracia Kasper | | | 2020 | | CARDIOLOGY BRI Lock Roller Coaster Designer | | | | | [address] | | | | | | [place], [place] | | | | | | [address] | | | | | | [phone] | | | +--------+ + + + [...]
--- OUTSIDE RECORDS SUMMARY | ~2019-11-06 | XMS | Clinical Summary ---
Demographics + + + | Address | [address] | | | [place] [address] | + + + | Home Phone | | + + + | Preferred Language | Unknown | + + + | Marital Status | Single | + + + | Latter Day Affiliation | Unknown | + + + | Race | White | + + + | Ethnic Group | Not or | + + + Author + + + | Author | [facility] | | | and [place] | + + + | Organization | [facility] | | | and [...] Team Providers + +------+ + | Care Junior Network Engineer Name | Role | Phone | + +------+ + | Dawson Almaguer MD | PCP | | + +------+ + Allergies + + + + + + | Active Allergy | Reactions | Severity | Noted | Comments | | | | | Date | | + + + + + + | Codeine | Swelling | | 09/19/19 | | | | | | 20 | | + + + + + + | Meperidine | Hives | | 09/19/19 | | | | | | 20 | | + + + + + + | Penicillins | Itching | | 09/19/19 | | | | | | 20 | | + + + + + + Medications + + + +---------+------+------+-------+ | Medication [...] 80 MG | daily. | | | 08/31 | | e | | tablet | [...] MCG/ACT inhaler | daily. | | | /20 | | e | | | | | | 19 | | | + + + +---------+------+------+-------+ | LANTUS 100 UNIT/ML | | | 0 | 02/0 | | Activ | | injection (vial) | | | | /20 | | e | | | | [...] MOUTH DAILY FOR 3 | | | 20 | | e | | tablet | [...] | | + + + +---------+------+------+-------+ | | USE 1 AMPULE IN | | 0 | 03/2 | | Activ | | albuterol-ipratropiu | NEBULIZER EVERY 6 | | | 9/20 | | e | | m 2.5-0.5 mg/3 mL | HOURS NEEDED | | | 20 | | | | SOLN | | | | | | | + + + +---------+------+------+-------+ | furosemide (LASIX) | TAKE 1 TO 4 TABLETS | | 0 | 05/3 | | Activ | | 20 mg tablet | BY MOUTH ONCE DAILY | | | 0/20 | | e | | | DIRECTED | | | 20 | | | + + + +---------+------+------+-------+ | famotidine | TAKE 1 TABLET BY | | 0 | 04/0 | | Activ | | (PEPCID) 20 mg | MOUTH TWICE DAILY | | | 4/20 | | e | | tablet | | | | 20 | | | + + + +---------+------+------+-------+ | carvedilol (COREG) | TAKE 1 TABLET BY | | 0 | 06/3 | | Activ | | 6.25 mg tablet | MOUTH TWICE DAILY | | | 0/20 | | e | | | WITH FOOD | | | 20 | | | + + + +---------+------+------+-------+ | albuterol 90 | INHALE 2 PUFFS BY | | 0 | 02/2 | | Activ | | mcg/puff inhaler | MOUTH EVERY 4 HOURS | | | 4/20 | | e | | | NEEDED | | | 20 | | | + + + +---------+------+------+-------+ | dicyclomine | TAKE 1 TABLET BY | | 0 | 07/0 | | Activ | | (BENTYL) 20 MG | MOUTH THREE TIMES | | | 1/20 | | e | | tablet | DAILY 30 MINUTES | | | 20 | | | | | BEFORE MEALS AND 1 | | | | | | | | TAB AT BEDTIME | | | | | | + + + +---------+------+------+-------+ | UNABLE TO | Medical Grade | 1 each | 0 | 07/0 | | Activ | | FINDIndications: | Compression | | | 10/31 | | e | | Venous insufficiency | stockings. | | | 20 | | | + + + +---------+------+------+-------+ Active Problems + + + | Problem | Noted Date | + + + | Hypertension | 09/19/2019 | + + + + + | Last Assessment & Plan: Controlled on in office measurement | | today. Recommend ambulatory BP readings. Continue medications | | as prescribed. | + + + + + | Venous insufficiency | 09/19/2019 | + + + + + | Last Assessment & Plan: Patient is prescribed Lasix per PCP | | for leg edema. Recommend leg elevation and medical grade | | compression stockings.Evidence of significant bilateral venous | | stasis dermatitis and ulceration. | + + + + + | HARO (dyspnea on exertion) | 09/19/2019 | + + + + + | Last Assessment & Plan: Unknown etiology. The differential | | diagnosis includes deconditioning from morbid obesity, COPD | | and/or structural heart disease amongst others. Recommend | | obtaining a 2D echocardiogram to further evaluate. Further | | recommendations pending results of testing. | + + + + + | Morbid obesity | 09/19/2019 | + + + + + | Last Assessment & Plan: Exercise and weight loss counseling. | + + + + + | Other hyperlipidemia | 09/19/2019 | + + + + + | Last Assessment & Plan: Stable on a statin. Dose and | | intensity to be guided by 10-year ASCVD risk in a type II | | diabetic. | + + Encounters +--------+ + + + + | Date | Type | Specialty | Care Team | Description | +--------+ + + + + | 09/18/ | Office | Cardiology | Diana | TAHIR (dyspnea on | | 2019 | Visit | | MD Taj | exertion) (Primary | | | | | | Dx); Hypertension, | | | | | | unspecified type; | | | | | | Heart failure, | | | | | | unspecified HF | | | | | | chronicity, | | | | | | unspecified heart | | | | | | failure type (HCC); | | | | | | Venous | | | | | | insufficiency; | | | | | | Morbid obesity | | | | | | ([facility]); Other | | | | | | hyperlipidemia | +--------+ + + + + | 09/18/ | Orders Only | Cardiology | Gracia Kasper | | | 2020 | | | L, Dietetic Aide | | +--------+ + + + + from Last 3 Months Family History + +------+ + + | Relation | Name | Status | Comments | + +------+ + + | Father | | | | + +------+ + + | Mother | | | | + +------+ + + Social History + +-------+ +--------+------+ [...] + + + Last Filed Vital Signs + + + + + | Vital Sign | Reading | Time Taken | Comments | + + + + + | Blood Pressure | 142/70 | 09/19/2019 1:34 PM | | | | | PDT | | + + + + + | Pulse | 86 | 09/19/2019 1:34 PM | | | | | PDT | | + + + + + | Temperature | 36.3 C (97.3 F) | 09/19/2019 1:34 PM | | | | | PDT | | + + + + + | Respiratory Rate | - | - | | + + + + + | Oxygen Saturation | 99% | 09/19/2019 1:34 PM | | | | | PDT | | + + + + + | Inhaled Oxygen | - | - | | | Concentration | | | | + + + + + | Weight | 127.5 kg (281 lb) | 09/19/2019 1:34 PM | | | | | PDT | | + + + + + | Height | 170.2 cm (5' 7") | 09/19/2019 1:34 PM | | | | | PDT | | + + + + + | Body Mass Index | 44.01 | 09/19/2019 1:34 PM | | | | | PDT | | + + + + + Plan of Treatment + + +-------+ + | Health Maintenance | Due Date | Last | Comments | | | | Done | | + + +-------+ + | Hepatitis C | | | | | Screening | 5 | | | + + +-------+ + | Med Mgmt: Cr | | | | | | 5 | | | + + +-------+ + | Med Mgmt: HBA1C | | | | | | 5 | | | + + +-------+ + | Med Mgmt: K | | | | | | 5 | | | + + +-------+ + | Med Mgmt: Na | | | | | | 5 | | | + + +-------+ + | Med Mgmt: eGFR | | | | | | 5 | | | + + +-------+ + | Medication | | | | | Management | 5 | | | + + +-------+ + | Vaccine: | | | | | Pneumococcal 19-64 | 1 | | | | (1 of 1 - PPSV23) | | | | + + +-------+ [...] | | + + +-------+ + | Colorectal Cancer | | | | | Screening | 5 | | | | (Colonoscopy) | | | | + + +-------+ + | Vaccine: Zoster (1 | | | | | of 2) | 5 | | | + + +-------+ + | Vaccine: Influenza | | | | | (#1) | 0 | | | + + +-------+ + Procedures + +--------+ + + + | Procedure Name | Priori | Date/Time | Associated Diagnosis | Comments | | | ty | | | | + +--------+ + + + | ECG 12 LEAD | Routin | 09/19/2019 | Hypertension, | Results for this | | | e | 1:38 PM | unspecified type | procedure are in the | | | | PDT | Heart failure, | results section. | | | | | unspecified HF | | | | | | chronicity, | | | | | | unspecified heart | | | | | | failure type (HCC) | | + +--------+ + + + from Last 3 Months Results ECG 12 lead (09/19/2019 1:38 PM PDT) + + + + + + | Component | Value | Ref Range | Performed | Pathologist | | | | | At | Signature | + + + + + + | VENTRICULAR | 85 | BPM | [facility] | | | RATE EKG | | | | | + + + + + + | ATRIAL RATE | 85 | BPM | [facility] | | + + + + + + | P-R | 146 | ms | [facility] | | | INTERVAL | | | | | + + + + + + | QRS | 106 | ms | [facility] | | | DURATION | | | | | + + + + + + | Q-T | 416 | ms | [facility] | | | INTERVAL | | | | | + + + + + + | Q-T | 495 | ms | [facility] | | | INTERVAL | | | | | | (CORRECTED) | | | | | + + + + + + | P WAVE AXIS | 74 | degrees | [facility] | | + + + + + + | QRS AXIS | -25 | degrees | [facility] | | + + + + + + | T AXIS | 64 | degrees | [facility] | | + + + + + + | INTERPRETAT | Normal sinus | | [facility] | | | ION TEXT | rhythmProlonged | | | | | | QTAbnormal ECGNo | | | | | | previous ECGs | | | | | | availableConfirmed by | | | | | | MD DIANA, | | | | | | SHANIQUE ([id number]) on | | | | | | 09/19/2019 5:39:14 PM | | | | + + + + + + + + | Specimen | + + | | + + + + + | Narrative | Performed At | + + + | | | + + + + +---------+ + + | Performing | Address | City/State/Zipcode | Phone Number | | Organization | | | | + +---------+ + + | [facility] | | | | + +---------+ + + from Last 3 Months Insurance + +--------+ +--------+ [...] | [employer] | [employer] | [id number] | | [phone] | | Medica | [...] | [birth year] | | [address] | | | al/Fam | | 1965 | [phone] | [place] | | | [place] | | | [place] (Home) | [address] | + +--------+ +--------+ + + Advance Directives + + + + + | Type | Date Recorded | Patient | Explanation | | | | Clinical Fellow | | + + + + + | Power of | | | | | Enterprise Mobility Architect | | | | + + + + + | Advance | | | | | Directive | | | | + + + + +
--- OUTSIDE RECORDS SUMMARY | ~2019-11-06 | XMS | Encounter Summary ---
Demographics + + + | Address | [address] | | | [place] [address] | + + + | Home Phone | | + + + | Preferred Language | Unknown | + + + | Marital Status | Single | + + + | Alevism Affiliation | Unknown | + + + | Race | White | + + + | Ethnic Group | Not or | + + + Author + + + | Author | [facility] | | | and [place] | + + + | Organization | [facility] | | | and [place] | + + + | Address | Unknown | + + + | Phone | Unavailable | + + + Support + + +---------+ + | Name | Relationship | Address | Phone | + + +---------+ + | Hortensia Annamaria | ECON | Unknown | | + + +---------+ + Care Team Providers + +------+ + | Care Manager Interface Name | Role | Phone | + +------+ + | Dawson Almaguer MD | PCP | | + +------+ + Reason for Referral Diagnostic/Screening (Routine) + +--------+ + + + + | Status | Reason | Specialty | Diagnoses / | Referred By | Referred To | | | | | Procedures | Contact | Contact | + +--------+ + + + + | Pending | | Cardiology | Diagnoses | | GAURAV | | Review | | | HARO | Parvataneni, | CARDIOLOGY | | | | | (dyspnea on | MD Taj | BRI | | | | | exertion) | [address] | | | | | Procedures | [address] | | | | | | ECHO | [place] [address] | [place], [place] | | | | | Complete | [place], [place] | [address] | | | | | | [address] | Phone: | | | | | | Phone: | [phone] | | | | | | [phone] | Fax: | | | | | | Fax: | [phone] | | | | | | [phone] | | + +--------+ + + + + Reason for Visit + + + | Reason | Comments | + + + | Establish Care | | + + + Evaluate & Treat (Routine) + +--------+ + + + + | Status | Reason | Specialty | Diagnoses / | Referred By | Referred To | | | | | Procedures | Contact | Contact | + +--------+ + + + + | Authorized | | Cardiology | Diagnoses | Almaguer, | Darvin, | | | | | Essential | Dawson | Dillan Chu MD | | | | | (primary) | MD Regis | [address] | | | | | hypertension | [address] | | | | | Edema, | [place] | [place] [address] | | | | | unspecified | [address] | [place], [place] | | | | | Other | [place], | [address] Phone: | | | | | specified | [place] [address] | [phone] | | | | | abnormal | Phone: | Fax: | | | | | findings of | [phone] | [phone] | | | | | blood | Fax: | | | | | | chemistry | [phone] | | | | | | Shortness of | | | | | | | breath | | | | | | | hypertension | | | | | | | , edema, | | | | | | | heart | | | | | | | failure | | | | | | | Procedures | | | | | | | Consult | | | + +--------+ + + + + Encounter Details +--------+---------+ + + + | Date | Type | Department | Care Team | Description | +--------+---------+ + + + | 09/18/ | Office | [facility] | Karina, | HARO (dyspnea on | | 2019 | Visit | CARDIOLOGY [place] | MD Taj [address] | exertion) (Primary | | | | [address] | [address] | Dx); Hypertension, | | | | [place], [place] | [place] [address] | unspecified type; | | | | [address] | [phone] | Heart failure, | | | | [phone] | | unspecified HF | | | | | | chronicity, | | | | | | unspecified heart | | | | | | failure type (HCC); | | | | | | Venous | | | | | | insufficiency; | | | | | | Morbid obesity | | | | | | (HCC); Other | | | | | | hyperlipidemia | +--------+---------+ + + + Social History + +-------+ [...] + + documented as of this encounter Last Filed Vital Signs + + + [...] | | + + + + + documented in this encounter Progress Notes Taj Collins MD - 09/19/2019 1:30 PM PDT Date of visit: 09/19/2019 Primary Care Physician: Dawson Almaguer MD CHIEF COMPLAINT: Chief Complaint Patient presents with Establish Care HISTORY OF PRESENT ILLNESS: Maria D Lorenzana is 54 y.o. female with past medical history of morbid obesity, hyperlipidemi a, hypertension, type 2 diabetes who presents to establish cardiac care. She has been exper iencing symptoms of dyspnea on exertion and leg edema for several months that is concerning to her. She has noticed improvement of leg edema with leg elevation and Lasix. REVIEW OF SYSTEMS: Review of Systems Constitutional: Negative. Respiratory: Positive for shortness of breath. Negative for cough and wheezing. Cardiovascular: Positive for leg swelling. Negative for chest pain, palpitations, orthopnea , claudication and PND. Gastrointestinal: Negative for nausea and vomiting. Neurological: Negative for dizziness and headaches. PHYSICAL EXAM: BP 142/70 | Pulse 86 | Temp 36.3 C (97.3 F) (Infrared Device) | Ht 1.702 m (5' 7") | Wt 127.5 kg (281 lb) | SpO2 99% | BMI 44.01 kg/m Physical Exam Constitutional: Well-developed. Neck: No JVD present. No thyromegaly present. Cardiovascular: Regular rhythm, S1 normal and S2 normal. No murmur heard. Pulses: Carotid pulses are 2+ on the right side, and 2+ on the left side. Radial pulses are 2+ on the right side, and 2+ on the left side. Pulmonary/Chest: Effort normal and breath sounds normal. No wheezes. No rales. Abdominal: Soft. No tenderness. Obese. Musculoskeletal: +1 bilateral pitting edema. Venous stasis dermatitis and ulceration noted . DATA: Blood tests: No results found for: WBC, RBC, HGB, HCT, PLT No results found for: NA, K, CL, CO2, ANIONGAP, GLUF, BUN, CREATININE, EGFR No results found for: CHOL, TRIG, LDL, LDL, GLUF No results found for: BNP, TSH, CRP No results found for: TOTEPI EKG (09/19/2019): Normal sinus rhythm. Prolonged QT. No prior ECG available for comparison. Last Echo: Last stress test: Last cath: Carotid US: AAA screening: Lower extremity US: OTHERS: Plan ASSESSMENT & PLAN: Maria D Lorenzana is a 54 y.o. male with the following problems and associated assessment and plan Medications Placed This Encounter Medications UNABLE TO FIND Sig: Medical Grade Compression stockings. Dispense: 1 each Refill: 0 HARO (dyspnea on exertion) Unknown etiology. The differential diagnosis includes deconditioning from morbid obesity, COPD and/or structural heart disease amongst others. Recommend obtaining a 2D echocardiogra m to further evaluate. Further recommendations pending results of testing. Venous insufficiency Patient is prescribed Lasix per PCP for leg edema. Recommend leg elevation and medical gra de compression stockings. Evidence of significant bilateral venous stasis dermatitis and ulceration. Hypertension Controlled on in office measurement today. Recommend ambulatory BP readings. Continue med ications as prescribed. Morbid obesity Exercise and weight loss counseling. Other hyperlipidemia Stable on a statin. Dose and intensity to be guided by 10-year ASCVD risk in a type II bronson betic. Return for after echo done. The following portions of the patient's history were reviewed and updated as appropriate: Allergies, current medications. Family history, past medical history, past social history, past surgical history. Problem list. Thank you for allowing me to participate in the care of this patient. Please, do not hesitate to contact me for any further questions. Taj Collins MD 09/19/2019 documented in this encounter Miscellaneous Notes Assessment & Plan Note - Taj Collins MD - 09/19/2019 4:32 PM PDTAssociated Problem (s): Other hyperlipidemiaStable on a statin. Dose and intensity to be guided by 10-year ASC VD risk in a type II diabetic. ssessment & Plan Note - Taj Collins MD - 09/19/2019 4:32 PM PDTAssociat ed Problem(s): Morbid obesity (HCC)Exercise and weight loss counseling. ssessment & Plan Sunny Pratt MD - 09/19/2019 4:32 PM PDTAssociated Problem(s): HypertensionControlled on in office measurement today. Recommend ambulatory BP readings. Continue medications as prescribed.El ectronically signed by Taj Collins MD at 09/19/2019 4:32 PM PDTAssessment & Plan Not e - Taj Collins MD - 09/19/2019 4:31 PM PDTAssociated Problem(s): Venous insufficie ncyPatient is prescribed Lasix per PCP for leg edema. Recommend leg elevation and medical g rade compression stockings. Evidence of significant bilateral venous stasis dermatitis and ulceration.Electronically si gned by Taj Collins MD at 09/19/2019 4:32 PM PDTAssessment & Plan Taj Pratt MD - 09/19/2019 4:22 PM PDTAssociated Problem(s): HARO (dyspnea on exertion)Unknown etiology. The differential diagnosis includes deconditioning from morbid obesity, COPD and /or structural heart disease amongst others. Recommend obtaining a 2D echocardiogram to fur ther evaluate. Further recommendations pending results of testing. documented in this encounter Plan of Treatment + + +--------+ + + | Name | Type | Priori | Associated Diagnoses | Order Schedule | | | | ty | | | + + +--------+ + + | ECHO Complete | Echocardiog | Routin | HARO (dyspnea on | Expected: | | | izabella | e | exertion) | 09/19/2019, Expires: | | | | | | 09/18/2020 | + + +--------+ + + documented as of this encounter Procedures + +--------+ + + + | [...] | | + +--------+ + + + documented in this encounter Results ECG 12 lead (09/19/2019 1:38 PM [...] | | | | | | MD KARINA, | | | | | | SHANIQUE ([id number]) on | | | | | | [...] | | | + +---------+ + + documented in this encounter Visit Diagnoses + + | Diagnosis | + + | HARO (dyspnea on exertion) - Primary Other dyspnea and respiratory abnormality | + + | Hypertension, unspecified type | + + | Heart failure, unspecified HF chronicity, unspecified heart failure type (HCC) | + + | Venous insufficiency Unspecified venous (peripheral) insufficiency | + + | Morbid obesity (HCC) Morbid obesity | + + | Other hyperlipidemia | + + documented in this encounter
--- OUTSIDE RECORDS SUMMARY | ~2019-11-06 | XMS | Encounter Summary ---
Demographics + + + | Address | [address] | | | [place] [address] | + + + | Home Phone | | + + + | Preferred Language | Unknown | + + + | Marital Status | Single | + + + | Restorationist Affiliation | Unknown | + + + | Race | White | + + + | Ethnic Group | Not or | + + + Author + + + | Author | [facility] | | | and [place] | + + + | Organization | [facility] | | | and [...] Team Providers + +------+ + | Care Blood Splatter Analyst Name | Role | Phone | [...] | | ECHO | [address] | [place], [place] | | | | | Complete | [place], [place] | [address] | | | | | | [address] | Phone: | | | | | | Phone: | [phone] | | | | | | [phone] | Fax: | | | | | | Fax: | [phone] | | | | | | [phone] | | + +--------+ + + + [...] | | unspecified | [address] | [place], [place] | | | | | Other | [place], | [address] Phone: | | | | | specified | [place] [address] | [phone] | | | | | abnormal | Phone: | Fax: | | | | | findings of | [phone] | [phone] | | | | | blood | Fax: | | | | | | chemistry | [phone] | | | | | | Shortness [...] + + | 09/18/ | Office | [facility] | Karina, | HARO (dyspnea on | | 2019 | Visit | CARDIOLOGY [place] | MD Taj [address] | exertion) (Primary | | | | [address] | [address] | Dx); Hypertension, | | | | [place], [place] | [place] [address] | unspecified type; | | | | [address] | [phone] | Heart failure, | | | | [phone] | | unspecified HF | | | [...] | | | | | | SHANIQUE ([id number]) on | | | | | | [...]
--- OUTSIDE RECORDS SUMMARY | ~2019-11-06 | XMS | Clinical Summary ---
Demographics + + + | Address | [address] | | | [place] [address] | + + + | Home Phone | | + + + | Preferred Language | Unknown | + + + | Marital Status | Single | + + + | Temple Affiliation | Unknown | + + + | Race | White | + + + | Ethnic Group | Not or | + + + Author + + + | Author | [facility] | | | and [place] | + + + | Organization | [facility] | | | [...] Team Providers + +------+ + | Care Interactive Account Manager Name | Role | Phone | + [...] obesity | | | | | | ([facility]); Other | | | | | | hyperlipidemia | +--------+ + + + + | 09/18/ | Orders Only | Cardiology | Gracia Kasper | | | 2020 | | | L, Ironer | | +--------+ + + + + [...] | | | | | | SHANIQUE ([id number]) on | | | | | | [...] | [employer] | [employer] | [id number] | | [phone] | | Medica | [...] [place] | | | 5 (Home) | [address] | + +--------+ +--------+ + + Advance Directives + + + + + | Type | Date Recorded | Patient | Explanation | | | | Foreman/Pile Driving And Erection | | + + + + + | Power of | | | | | Physical Education Instructor | | | | + + + + + | Advance | | | | | Directive | | | | + + + + +
--- OUTSIDE RECORDS SUMMARY | ~2019-11-06 | XMS | Encounter Summary ---
Demographics + + + | Address | [address] | | | [place] [address] | + + + | Home Phone [...] Team Providers + +------+ + | Care Diet Clerk Name | Role | Phone | + [...] Unknown | | | | | [place] | [phone] | | | | | [address] | | | | | | [phone] | | | +--------+ + + + [...]
[~2019-11-06 18:53] MED LIST changes: -BASAGLAR K100 UNIT/1; +BASAGLAR K100 UNIT/1 SUB-Q; +LISINOPRIL20 MG PO
--- OUTSIDE RECORDS SUMMARY | 2019-11-06 18:56 | XMS ---
PreManage Notification: LINH PEDRAZA Security Slot Operations Manager Events No recent Security Events currently on file CRITERIA MET - [facility] - Has Care Guidelines CARE PROVIDERS MILTON DASILVA [facility] 05/01/2018-Current PHONE: [phone] Rossi Guajardo Farm Equipment Service Technician/Extension Specialist 07/01/2018-Current PHONE: [phone] Isabela has no Care Guidelines for this patient. Care History Medical/Surgical 06/06/2018 [facility] - PATIENT PCP HAS MADE A REFERRAL [facility]- PATIENT STARTS PULMONARY REHAB ON 06/20/18. E.D. VISIT COUNT (12 MO.) 5 KRIS Huffman TOTAL 5 NOTE: Visits indicate total known visits. ED/UCC VISIT TRACKING (12 MO.) 11/06/2019 18:54 [facility] [place] TYPE: Emergency COMPLAINT: - DIZZINESS 09/08/2019 17:47 [facility] [place] TYPE: Emergency COMPLAINT: - NAUSEA,DIARRHEA DIAGNOSES: - Allergy status to other antibiotic agents status - Personal history of nicotine dependence - Other long-term (current) drug therapy - Allergy status to narcotic agent status - Type 2 diabetes mellitus with diabetic chronic kidney disease - Heart failure, unspecified - Diarrhea, unspecified - Type 2 diabetes mellitus with diabetic neuropathy, unspecifie - Hypertensive heart and chronic kidney disease with heart fail - Allergy status to other drugs, medicaments and biological sub - Allergy status to penicillin - Nausea with vomiting, unspecified - Chronic obstructive pulmonary disease, unspecified - Hyperlipidemia, unspecified - Chronic kidney disease, stage 3 (moderate) - detention (current) use of insulin 07/16/2019 22:51 [facility] [place] TYPE: Emergency COMPLAINT: - N/V DIAGNOSES: - Allergy status to other antibiotic agents status - Nausea with vomiting, unspecified - Chronic kidney disease, stage 3 (moderate) - Hyperlipidemia, unspecified - Other long-term (current) drug therapy - Type 2 diabetes [...] - Allergy status to penicillin - Other long-term (current) drug therapy - Type 2 diabetes mellitus with diabetic neuropathy, unspecifie - Allergy status to narcotic agent status - Noninfective gastroenteritis and colitis, unspecified - Nausea with vomiting, unspecified - Heart failure, unspecified 05/12/2019 17:[address] [facility] [place] TYPE: Emergency COMPLAINT: - COUGH/ SOB DIAGNOSES: - Other long-term (current) drug therapy - Acute bronchitis, unspecified - Hyperlipidemia, unspecified - Chronic obstructive pulmonary disease with acute lower respir - Type 2 diabetes mellitus with diabetic neuropathy, unspecifie - Personal history of nicotine dependence - Allergy status to penicillin - Allergy status to narcotic agent status - Shortness of breath - Essential (primary) hypertension INPATIENT VISIT TRACKING (12 MO.) No inpatient visits to display in this time frame [email or web address]
--- NOTE | 2019-11-06 23:25 | NUR ---
pt ARRIVES VIA STRETCHER. 1PA TO [facility] FOR ATTEMPT BM, SOME INCONTINENCE OF STOOL. NO BM NOTED IN COMMODE. ORIENATION TO ROOM PROVIDED, INSTRUCTED TO USE CALL LIGHT BEFORE OUT OF BED. pt C/O DIZZINESS WITH STANDING, SITTING UP. BACK IN BED. C/O NAUSEA, HEARTBURN, PRIMARY RN WITH PHONE CALL TO MD ESTUARDO TO PLACE ORDERS. ANU ZULETA IN ROOM.
--- NOTE | 2019-11-06 23:32 | NUR ---
PATIENT C/O COLD. WARM BLANKET PROVIDED. C/O THROWING UP. EMESIS BAG PROVIDED AND WET WASH CLOTH. PATIENT IS BACK LYING IN BED. CALL LIGHT WITHIN REACH.
--- NOTE | 2019-11-06 23:58 | NUR ---
PT TO ROOM VIA STRETCHER FROM ED. 1PA TO [facility] [place]. PT INCONTINENT OF SMALL AMOUNT OF LIQ STOOL. STAFF ASSIST WITH [facility]ER[facility]Y [facility]. PT TO BED, DIMITRIS FAIR. UNSTEADY ON FEET AND BECOMES EXTREMELY NAUSEOUS WITH MOVEMENT. PT CONTINUES TO WRETCH. MD CALLED. NEW ORDERS RECEIVED. PRN ADMINISTERED FOR N/V. SCHEDULED MEDS ADMINISTERED PER EMAR. IVF INFUSING. MITCHELL PATENT DRAINING CLEAR YELLOW URINE. ASSESSMENT COMPLETE. PT ORIENTED TO ROOM AND NURSE CALL LIGHT. ENCOURAGED TO CALL FOR ASSISTANCE WITH AMBULATION. PT STATES UNDERSTANDING. NO FURTHER NEEDS AT THIS TIME. CALL LIGHT WITHIN REACH.
--- NOTE | 2019-11-07 00:50 | NUR ---
RIDER COMPLETE. PT DENIES NAUSEA, AGREES SHE IS RESTING IN BED COMFORTABLY. NO NEEDS AT THIS TIME.
--- NOTE | 2019-11-07 01:45 | NUR ---
ORTHOSTATIC VS COMPLETE. PT DIMITRIS WELL. DENIES NAUSEA. REPORTS "A LITTLE" DIZZINESS. BACK IN BED AT THIS TIME. NO FURTHER NEEDS.
--- NOTE | 2019-11-07 02:00 | NUR ---
PATIENT WAS UP TO THE BEDSIDE COMMODE. PATIENT IS BACK IN BED. CALL LIGHT IN REACH.
--- NOTE | 2019-11-07 04:00 | NUR ---
PT RESTING IN BED WITH EYES CLOSED, NAD. IVF INFUSING. MITCHELL PATENT DRAINING CL YELLOW URINE.
--- NOTE | 2019-11-07 06:15 | NUR ---
VS AND I&O COMPLETE. PT UP TO RECLINER WITH SBA. GAIT STEADY. DENIES DIZZINESS OR NAUSEA WITH AMBULATION. C/O "MILD HEARTBURN". MITCHELL DRAINING QS CL YELLOW URINE. NO DIARRHEA SINCE COMING TO THE FLOOR. DIMITRIS SIPS OF CLEAR LIQUIDS. NO FURTHER NEEDS. CALL LIGHT IN REACH.
--- NOTE | 2019-11-07 07:27 | NUR ---
REPORT RECEIVED FROM HARDIK MEDEROS. PT UP TO CHAIR, PT COUGHING AND STATES "IT'S BECAUSE I USED TO SMOKE." PTREPORTS 5/10 PAIN IN BACK AND 6/10 HEADACHE. PT DENIES NAUSEA. NO BOWEL MOVEMENTS NOTED YET, STOOL SAMPLE DUE. NO ADDITIONAL REQUESTS OR COMPLAINTS. CALL LIGHT WITHIN REACH.
--- NOTE | 2019-11-07 08:38 | NUR ---
MORNING ASSESSMENT AND MEDICATION DUE. PT FINISHED WITH ECHOCARDIOGRAHM. PT REPORTS BACK PAIN AND HEADACHE ARE IMPROVING, NOW 07/21. SEE MAR FOR MEDICATION GIVEN. ASSESSMENT DONE. ABRASIONS NOTED TO BILATERAL LOWER EXTREMITIES AND LEFT HEEL. BILATERAL LOWER EXTREMITIES NOTED TO BE REDDENED, NOT HOT TO TOUCH. CATHETER CARE DONE. PT REPORTS BASELINE NUMBNESS TO FEET AND REPORTS THAT "I DONT WEAR SHOES, BUT I KNOW I SHOULD." EDUCATION DONE WITH PT REGARDING DIABETIC FOOT CARE. PT VERBALIES UNDERSTANDING. BOWEL TONES ACTIVE. PT DENIES NAUSEA. LUNG SOUNDS CLEAR. PT UP TO BATHROOM, NO BOWEL MOVEMENT NOTED. PT UP TO CHAIR, EATING BREAKFAST AND TALKIGN ON PHONE. NO ADDITIONAL REQUESTS OR COMPLAINTS. MITCHELL CATHETER IS STILL IN, MESSAGE SENT TO MD FOR ORDERS. CALL LIGHT WITHIN REACH.
--- NOTE | 2019-11-07 09:22 | NUR ---
Pt. was up sitting in chair talking on the phone. Bed linens were changed, vitals were taken and charted. Pt. was given fresh ice water.
--- NOTE | 2019-11-07 09:47 | NUR ---
THIS RN TO ROOM TO CHECK ON PT. PT TALKING ON PHONE. PT REPORTS BACK PAIN AND HEADACHE ARE "A LOT BETTER." NOW 06/21. PT DENIES ADDITIONAL REQUESTS OR COMPLAINTS. CALL LIGHT WITHIN REACH.
--- NOTE | 2019-11-07 10:45 | NUR ---
Spoke with pt for CM assessment. She states she lives with her niece Princess and her family with 4 children under 8. Princess is her state paid cg. Maria D Sarabia" has a walker and shower chair. She states she knows her health is bad due to poor choices. She requires assistance frequently. Plans on dc to home when cleared by hospitalist.
--- NOTE | 2019-11-07 11:18 | NUR ---
PT IS ALERT, ORIENTED AND MENTINED SHE IS FEELING BETTER. PT BEGAN TO SHARE WITH ME SHE RECENTLY MOVED TO . FROM OUT OF STATE AND HAS YET TO FIND A CAODAISM. PT FEELS A NEED FOR A NEW SPIRITUAL CONNECTION. GAVE SUGGESTIONS, PT REQUESTED PRAYER. LEFT G.POST, WILL FOLLOW
--- NOTE | 2019-11-07 11:27 | NUR ---
PTS DAUGHTER IN LAW, JAMIL, CALLED FOR UPDATE. PT STATES OK TO UPDATE JAMIL. JAMIL UPDATED REGARDING PTS STATUS. JAMIL STATES PT HAS BEEN HAVING DIFFICULTY WITH SELF CARES AND MEDICATION MANAGEMENT AT HOME. CASE MANAGEMENT UPDATED. JAMIL STATES HER QUESTIONS HAVE BEEN ANSWERED.
--- NOTE | 2019-11-07 11:40 | NUR ---
NOON ASSESSMENT AND MEDICATION DUE. PT UP TO CHAIR. PT REPORTS 2/10 PAIN IN BACK AND HEAD "BETWEEN THE EYES." PT DENIES NEED FOR PAIN MEDICATION STATES "IT'S JUST A LITTLE ANNOYING. PT HAD MEDIUM FORMED/SOFT BOWEL MOVEMENT WITH ANOTHER RN. SAMPLE WAS NOT COLLECTED. WILL CONSULT MD REGARDING CONTINUED NEED FOR C-DIFF TEST. PT REPORTS HUNGER, DENIES NAUSEA. DIET ADVANCED TO 60G CONSISTANT CARB DIET. PT ASSISTED WITH ORDERING LUNCH. ASSESSMENT DONE. LUNG SOUNDS CLEAR. REDNESS TO LOWER EXTREMITIES REMAINS UNCHANGED. INSULIN GIVEN FOR BLOOD SUGAR OF 149. NO ADDITIONAL REQUESTS OR COMLAINTS. CALL LIGHT WITHIN REACH.
--- NOTE | 2019-11-07 12:30 | EKG ---
[facility] [address] [facility] [place] [address] Signed Sinus tachycardia Left axis deviation Incomplete right bundle branch block Minimal voltage criteria for LVH, may be normal variant T wave abnormality, consider inferolateral ischemia Prolonged QT Abnormal ECG When compared with ECG of 29-MAY-2019 15:40, Incomplete right bundle branch block has replaced Incomplete left bundle branch block Confirmed by JOHN ARIZA MD ([id number]) on 11/07/2019 12:29:52 PM Electronically Signed By: JOHN ARIZA MD 11/07/19 1230 PATIENT NAME: LINH PEDRAZA Electrocardiogram DATE OF : 65 PHYSICIAN: JOHN ARIZA MD REPORT #: [id number] REPORT IS CONFIDENTIAL AND NOT TO BE RELEASED WITHOUT AUTHORIZATION
--- NOTE | 2019-11-07 12:30 | NUR ---
Received call from Jairo Camp, pts daughter in law. She states she is very concerned as pt needs higher level of care than Princess can provide. Pt was living at [facility] and moved in with niece as she was lonesome. Jairo also states Princess has 4 small children and works out of the home. She request I assist with finding placement. Discussed I can check for beds which will accept medicaid, but I can only offer placement. She states she is aware of this and she has discussed with Shivani she needs more care and Shivani has agreed. Called and spoke with Sarah at [facility]. They don't currently have any beds open in their Foster cares, but will in the next 2 weeks.
--- NOTE | 2019-11-07 13:30 | NUR ---
Spoke with Shivani and discussed if she feels she requires more care than she is getting. She feels she needs a higher level of care, but does not want to leave as she enjoys caring for the children. She states states she knows her health is worsening and she agrees with Jairo. Discussed she may need to hire a different rn palliative care to assist her if she wants to stay in [facility]. Also informed of [facility]. Encouraged her to think about this information and discuss with Jairo. She states she is aware, Jairo has her best interest at heart and is wanting to help her. Will follow up tomorrow. Called and updated Jairo to conversation.
--- NOTE | 2019-11-07 14:00 | NUR ---
THIS RN TO ROOM TO CHECK ON PT. PT DENIES PAIN AND NAUSEA. PT REQUESTS A SHOWER. MARKETING AND PUBLIC RELATIONS MANAGER TO BEDSIDE AND WORKING WITH PT. IV SALINE LOCKED. NO ADDITIONAL REQUESTS OR COMPLAINTS.
--- NOTE | 2019-11-07 14:32 | NUR ---
PT SITTING AT BT BEDSIDE CHAIR. VITAL SIGNS TAKEN AND PT HELPED UP TO SHOWER BY STRIPPER AND PRINTER. PT IS CURRENTLY SHOWERING WITH ASSISTANCE FROM THE STRIPPER AND PRINTER.
--- NOTE | 2019-11-07 14:45 | NUR ---
PATIENT DONE WITH SHOWER, MITCHELL EMPTIED. CALL LIGHT IN REACH
--- NOTE | 2019-11-07 15:39 | NUR ---
PT HERE FOR NASUEA/VOMITING AND DIARRHEA. PT UP IN ROOM WITH STAND BY ASSIST. DIET ADVANCED TO 60G CARB DIET THIS SHIFT. PT TOLERATING WELL WITHOUT NAUSEA. PT UP TO CHAIR FOR MOST OF THIS SHIFT. SHOWER DONE. MITCHELL CATHETER REMAINS IN PLACE AT THIS TIME PENDING MD INSTRUCTIONS. NO DIARRHEA NOTED THIS SHIFT. 1 FORMED/SOFT BOWEL MOVEMENT NOTED. POOR CIRCULATION WITH TRENA APPEARANCE TO LOWER LEGS AND MULTIPLE ABRASIONS. DIABETIC FOOT CARE EDUCATION DONE. PRN PAIN MEDICATION GIVEN FOR 3-6/10 HEADACHE AND BACK PAIN WITH GOOD RESULTS. PT NOT VOIDING QUANTITY SUFFICIENT, MD AWARE. PT USES CALL LIGHT APPROPRAITLY.
--- NOTE | 2019-11-07 16:35 | NUR ---
AFTERNOON ASSESSMENT DUE. URINE OUTPUT NOTED TO BE INSUFFICIENT. MD UPDATED ON PTS STATUS, URINE OUTPUT, LACK OF DIARRHEA AND C-DIFF ORDER. NEW ORDERS PLACED. ASSESSMENT DONE. PT CONTINUES TO BE TACHYCARDIC. NO NEW EDMA NOTED. PT REPORTS DICOMFORT WITH MITCHELL CATHETER, ORDERS PLACED TO DC MITCHELL CATHETER. MITCHELL DC'D PER PROTOCOL. LUNG SOUNDS CLEAR. PT DENIES PAIN AND NAUSEA. BOWEL TONES ACTIVE. MD TO BEDSIDE FOR ROUNDS. PT VERBLALIZES UNDERSTANDING OF PLAN OF CARE. IV FLUID BOLUS GIVEN. AFTERNOON MEDICATIONS GIVEN. SLIDING SCALE INSULIN GIVEN. NO ADDITIONAL REQUESTS OR COMPLAINTS. CALL LIGHT WITHIN REACH.
--- NOTE | 2019-11-07 17:33 | NUR ---
PATIENT UP IN CHAIR, VITALS AND I&OS CHARTED. DIETARY IN WITH SUPPER. CALL LIGHT IN REACH, NO OTHER NEEDS AT THIS TIME
--- NOTE | 2019-11-07 17:44 | NUR ---
THIS RN TO ROOM TO CHECK ON PT. PT UP TO CHAIR, FINISHING DINNER. PT REPORTS DINNER IS "REALLY GOOD." PT DENIES PAIN AND NAUSEA. NO REQUESTS OR COMPLAINTS. CALL LIGHT WITHIN REACH.
--- NOTE | 2019-11-07 18:37 | NUR ---
PT CALL LIGHT ON. PT REQUESTS ASSITANCE BACK TO BED. 1 PERSON STAND BY ASSIST BACK TO BED. PT DENIES PAIN OR NAUSEA. WARM BLANKETS PROVIDED. BED RAILS UP. CALL LIGHT WITHIN REACH. NO ADDITIONAL REQUESTS OR COMPLAINTS.
--- NOTE | 2019-11-07 19:25 | NUR ---
SHIFT REPORT RECEIVED FROM MARTINBRIANNA GUILLEN AT BEDSIDE. PT AWAKE AND RESTING IN BED. IV FLUIDS INFUSING, SITE WNL. PT DENIES NAUSEA. NO NEEDS VERBALIZED, CALL LIGHT IN REACH AND BOARD UPDATED.
--- NOTE | 2019-11-07 19:43 | NUR ---
PT CALLED ASKING IF I CAN TURN ON HER LIGHT. I WENT IN AND SHOWED HER HOW TO TURN THE LIGHT ON WITH HER REMOTE/ CALL LIGHT. SHE THANKED ME. SHE NEEDS NOTHING MORE AT THIS TIME.
--- NOTE | 2019-11-07 21:15 | NUR ---
SBA PT TO TOILET, BK TO CHAIR, TOOK PT VITALS, I&Os ARE DONE, FRESH ICEWATER GIVEN, CALL LIGHT IN REACH, NOTHING FUTHER REQUESTED BY PT AT THIS TIME,
--- NOTE | 2019-11-07 21:24 | PATH ---
[facility] [address] [place], [place] [address] Signed ORDERING PHYSICIAN: Blaine Ryan MD PATIENT NAME: LINH PEDRAZA GENDER: F : 1965 SPECIMEN(S): No Source Given MOLECULAR PATHOLOGY RESULTS: SARS-CoV-2 Not Detected ADDITIONAL NOTES.: The [place] [facility] SARS-CoV-2 Assay is a multiplex real-time PCR (RT-PCR) in vitro diagnostic test intended for the qualitative detection of RNA from SARS-CoV-2 from individuals who meet COVID-19 clinical and/or epidemiological criteria. In general, SARS-CoV-2 RNA can be detected during the acute phase of infection. Positive results indicate the presence of SARS-CoV-2 RNA. Clinical correlation with patient history and other diagnostic information is necessary to determine patient infection status. Positive results do not rule out bacterial infection or co-infection with other viruses. Negative results do not preclude SARS-CoV-2 infection and should not be used as the sole basis for patient management decisions. Negative results must be combined with other clinical observations, patient history, and epidemiological information. The [place] [facility] SARS-CoV-2 Assay is not yet approved or cleared by the [place] FDA. When there are no FDA-approved or cleared tests available, and other criteria are met, FDA can make tests available under an emergency access mechanism called an Emergency Use Authorization (EUA). The EUA for this test is supported by the [place] of Health and Human Service's (HHS's) declaration that circumstances exist to justify the emergency use of in vitro diagnostics for the detection and/or diagnosis of the virus that causes COVID-19. This EUA will remain in effect for the duration of the COVID-19 declaration justifying emergency of IVDs, unless it is terminated or revoked by FDA, after which the test may no longer be used. The [place] Fusion SARS-CoV-2 Assay is for use only under EUA in US laboratories certified under the Clinical Laboratory Improvement Amendments of 1988 (CLIA) to perform high complexity tests. [facility] is certified under CLIA to perform high complexity PATIENT NAME: LINH PEDRAZA PATHOLOGY DATE OF : 65 REPORT #: [id number] PHYSICIAN: ELISE PATHOLOGY PCP: MILTON DASILVA REPORT IS CONFIDENTIAL AND NOT TO BE RELEASED WITHOUT AUTHORIZATION [facility] [address] [place] [address] [place], [place] [address] Signed clinical laboratory testing. PERFORMING LABORATORY.: Molecular testing was performed by [facility] [address] [place], [place] [address] [address] ([employer] Trimmer: Eliot Pak D.O.; CLIA#: [id number]) Diagnostician: System Interface Pathologist Electronically Signed 11/07/2019 Copies: ~ PATIENT NAME: LINH PEDRAZA PATHOLOGY DATE OF : 65 REPORT #: [id number] PHYSICIAN: ELISE PEMBERTON PCP: MILTON DASILVA REPORT IS CONFIDENTIAL AND NOT TO BE RELEASED WITHOUT AUTHORIZATION
--- NOTE | 2019-11-07 22:20 | NUR ---
ASSESSMENT COMPLETE, SCHEDULED MEDS GIVEN (SEE EMAR). PT AWAKE AND RESTING IN CHAIR TALKING TO FAMILY ON THE PHONE. IV FLUIDS INFUSING, SITE WNL. PT DENIES PAIN AND NAUSEA. SNACK PROVIDED PER PT REQUEST. NO FURTHER NEEDS, CALL LIGHT IN REACH.
--- NOTE | 2019-11-08 00:16 | NUR ---
PT. WOULD LIKE TO TAKE A SHOWER SO WE WRAPPED HER IV SITE AND GAVE HER FRESH TOWELS , WASHCLOTHES AND GOWN. SHE NEEDS NOTHING MORE AT THIS TIME.
--- NOTE | 2019-11-08 00:28 | NUR ---
PT RESTING IN BED AND ATTEMPTING TO GO TO SLEEP, DENIES NEEDS OR CONCERNS. IV FLUIDS INFUSING PER MD ORDERS. CALL LIGHT IN REACH.
--- NOTE | 2019-11-08 04:19 | NUR ---
HELPED PT TO THE BATHROOM AND BACK TO BED. BEDSIDE TABLE AND CALL LIGHT IN REACH.
--- NOTE | 2019-11-08 05:49 | NUR ---
VITALS AND I&OS DONE AND CHARTED. FRESH ICE WATER AND FRESH ICE FILLED IN THE CRYO. GARBAGES EMPTIED AND ROOM CLEANED UP. BEDSIDE TABLE AND CALL LIGHT IN REACH. PT NEEDS NOTHING MORE AT THIS TIME.
--- NOTE | 2019-11-08 05:50 | NUR ---
VITALS / I&Os DONE, RN IN FOR AM ASSEMENT, PT NEEDS NOTHING FURTHER AT THIS TIME, LEFT PT TO REST
--- NOTE | 2019-11-08 05:58 | NUR ---
ASSESSMENT COMPLETE, NO NEW CAHNGES OR CONCERNS. PT DENIES PAIN AND NAUSEA. VSS AND I&O'S DONE. NO FURTHER NEEDS. IV FLUIDS INFUSING, NEW BAG HUNG. SITE WNL. CALL LIGHT IN REACH.
--- NOTE | 2019-11-08 07:01 | NUR ---
SBA PT UP TO TOILET, PT BK TO BED, PT NEEDS NOTHING FURTHER
--- NOTE | 2019-11-08 08:00 | NUR ---
REPORT RECEIVED FROM HARDIK STEPHENSON. THIS RN WILL BE ASSUMING CARE OF PT FOR THE NEXT 1.5 HOURS WHILE PTS RN ATTENDS A MEETING.
--- NOTE | 2019-11-08 09:39 | NUR ---
MORNING ASSESSMENT AND MEDICATION DUE. PT UP TO CHAIR. PT FINISHED WITH BREAKFAST, GOOD APPITITE NOTED. PT DENIES PAIN AND NAUSEA. REPORTS SHE IS TIRED OF SITTING. PT UP TO AMBULATE IN TYLER X1 LAP. DYSPNEA ON EXERTION NOTED. O2 MAINTAINS ABOVE 95% WITH AMBULATION. RR INCRAESES TO 28-32 AND HEART RATE TO 110'S WITH AMBULATION. PT UP TO CHAIR. ASSESSMENT DONE. LUNG SOUNDS CLEAR. BILATERAL LOWER EXTREMITY WOUNDS AND REDNESS REMAIN UNCHANGED. BOWEL TONES ACTIVE. NO BOWEL MOVEMENT NOTED YET TODAY. EDUCATION DONE WITH PT REGARDING DIABETIC FOOT CARE, BUN AND CREATINE LABS, AND BLOOD SUGAR CONTROL. PT ADMITS THAT SHE CHECKS HER SUGARS "JUST WHEN I FEEL LIKE IT." PT REPORTS SHE FEELS THAT SHE IS IN A GOOD MOOD THIS MORNING AND GENERALLY FEELING BETTER. NO ADDITIONAL REQUESTS OR COMPLAINTS AT THIS TIME. ICE WATER REFILLED. CALL LIGHT WITHIN REACH.
--- NOTE | 2019-11-08 09:52 | NUR ---
REPORT GIVEN TO HARDIK STEPHENSON WHO WILL BE RESUMING CARE OF PT. QUESTIONS ANSWERED.
--- NOTE | 2019-11-08 12:04 | NUR ---
PT UP IN CHAIR ON HER PHONE AND WITH LUNCH INFRONT OF HER. NO C/O'S AT THIS TIME.
--- NOTE | 2019-11-08 13:16 | NUR ---
PT IS TIFFANIE SADE LANZA. PT MENTIONED SHE RECEIVED A CALL FROM A FRIEND THAT HAS REALLY CHEERED HER UP. PT ALSO SHARED THAT THIS TIME SPENT AT [facility] HAS TAUGHT HER HOW TO BETTER CARE FOR HERSELF MORE THAN ANY OTHER PLACE SHE HAS RECEIVED MEDICAL TREATMENT OR CARE. GAVE BLESSING, WILL FOLLOW NEEDED
--- NOTE | 2019-11-08 13:46 | NUR ---
PT MOVED TO ROOM 124 AT THIS TIME,
[2019-11-08] MEDS ORDERED: PROMETHAZINE HC50 MG PO (15:35)
[2019-11-08] MEDS ORDERED: FLOVENT HFA12 G1 INH (15:36)
[2019-11-08] MEDS ORDERED: VENTOLIN HFA18 GM INH (15:37)
[2019-11-08] MEDS ORDERED: DICYCLOMINE HCL20 MG PO (15:38)
[2019-11-08] MEDS ORDERED: DULOXETINE HCL60 MG PO (15:39)
[2019-11-08] MEDS ORDERED: LISINOPRIL10 MG PO (15:41)
[2019-11-08] MEDS ORDERED: IPRAT-ALBUT 0.5-3 ML INH (18:13)
--- NOTE | 2019-11-08 18:22 | NUR ---
MED REC COMPLETE
--- NOTE | 2019-11-08 18:48 | NUR ---
PT SITTING UP ON THE EDGE OF THE BED FOR DINNER, DID WELL WITH IT. AND THEN TALKED ABOUT CARBS AND HOW TO LOOK THEM UP ON THE INTERNET DUE TO HER DM. PT LIKED THE IDEA ON HOW TO TAKE OTHER VEGIES INEXCHANGE FOR FREE FOODS.
--- NOTE | 2019-11-08 20:30 | NUR ---
PATIENT RESTING IN BED, CALL LIGHT IN REACH, FRESH ICE WATER GIVEN, NO OTHER NEEDS AT THIS TIME, CALL LIGHT IN REACH.
--- NOTE | 2019-11-08 22:30 | NUR ---
PATIENT HAS BEEN DOING WELL AND INDEPENDENT IN THE ROOM ON HER OWN. CALL LIGHT IN REACH.
--- NOTE | 2019-11-09 00:30 | NUR ---
PATIENT RESTING QUIETLY, IN BED ON HER LEFT SIDE, NO NEEDS AT THIS TIME. CALL LIGHT IN REACH.
--- NOTE | 2019-11-09 01:28 | NUR ---
PATIENT GETTING FRESH WATER FROM TESTER WAFER SUBSTRATE, CALL LIGHT IN REACH.
--- NOTE | 2019-11-09 03:23 | NUR ---
PATIENT RESTING QUIETLY AT THIS TIME, CALL LIGHT IN REACH, EYES CLOSED, RESPIRATIONS REGULAR AND EVEN.
--- NOTE | 2019-11-09 04:21 | NUR ---
PATIENT HAS SLEPT WELL MOST OF THE NIGHT. RESPIRATIONS HAVE BEEN REGULAR AND EVEN AND CALL LIGHT HAS BEEN IN REACH. EYES HAVE BEEN CLOSED. PATIENT HAS NOT NEEDED MUCH AND HAS BEEN INDEPENDENT IN THE ROOM.
--- NOTE | 2019-11-09 06:50 | NUR ---
VITALS AND I&OS DONE AND CHARTED. GARBAGES EMPTIED AND FRESH ICE WATER GIVEN. BEDSIDE TABLE AND CALL LIGHT IN REACH.
--- NOTE | 2019-11-09 07:40 | NUR ---
0703: Report received from Gee DYE. Pt sleeping at this time, call lomax within reach.
--- NOTE | 2019-11-09 08:38 | NUR ---
PT RESTING IN HER CHAIR WITH NO COMPLAINTS AT THIS TIME. IV FLUID RESTARTED ORDERED. BUN AND CREATITINE LEVELS CONTINUE TO DECREASE, SEE LABS.
[2019-11-09] MEDS ORDERED: NOVOLOG FL100 UNIT/1 SUB-Q (10:29)
[2019-11-09] MEDS ORDERED: INSULIN PEN NE1 EAC1 MISC (10:30)
== END 2019-11-09 11:08 | disposition home or self-care (01) | DRG 683 ==
LOC: ED 18:53 → MS 21:57
PROVIDERS: ADMIT Internal Medicine
DX: N17.9 Acute kidney failure, unspecified (principal); E87.1 Hypo-osmolality and hyponatremia; E87.2 Acidosis; Z20.828 Contact with and (suspected) exposure to other viral communicable diseases; A08.4 Viral intestinal infection, unspecified; E86.1 Hypovolemia; E11.40 Type 2 diabetes mellitus with diabetic neuropathy, unspecified; J44.9 Chronic obstructive pulmonary disease, unspecified; E11.22 Type 2 diabetes mellitus with diabetic chronic kidney disease; I12.9 Hypertensive chronic kidney disease with stage 1 through stage 4 chronic kidney disease, or unspecified chronic kidney disease; N18.3 Chronic kidney disease, stage 3 (moderate); E78.5 Hyperlipidemia, unspecified; I25.10 Atherosclerotic heart disease of native coronary artery without angina pectoris; E83.42 Hypomagnesemia; R79.89 Other specified abnormal findings of blood chemistry; R93.1 Abnormal findings on diagnostic imaging of heart and coronary circulation; Z87.891 Personal history of nicotine dependence; Z88.0 Allergy status to penicillin; Z88.5 Allergy status to narcotic agent; Z88.1 Allergy status to other antibiotic agents; Z79.84 Long term (current) use of oral hypoglycemic drugs; Z79.02 Long term (current) use of antithrombotics/antiplatelets; Z79.4 Long term (current) use of insulin; Z79.51 Long term (current) use of inhaled steroids; Z79.899 Other long term (current) drug therapy
CPT/HCPCS: 36415; 80053; 80069; 81001; 82565; 82570; 83036; 83735; 84300; 84484; 84520; 84540; 85025; 93005; 93010; 93306; 96374; 99285-25; C9113; C9803; J0780; J1650; J1815; J2405; J3475; J7030; J7121

== ENCOUNTER 2020-02-23 10:41 | Emergency (ER) | payer OTHER ==
[~2020-02-23] VITALS: Ht 170.2 cm; Wt 120.8 kg
[~2020-02-23 10:41] MED LIST changes: +DICYCLOMINE HCL20 MG PO; +DULOXETINE HCL60 MG PO; +FLOVENT HFA12 G1 INH; +IPRAT-ALBUT 0.5-3 ML INH; +LISINOPRIL10 MG PO; +NOVOLOG FL100 UNIT/1 SUB-Q; +PROMETHAZINE HC50 MG PO; +VENTOLIN HFA18 GM INH
[2020-02-23] MEDS ORDERED: REGLAN10 MG PO (14:04)
== END 2020-02-23 14:25 | disposition home or self-care (01) ==
LOC: ED 10:41
DX: E11.65 Type 2 diabetes mellitus with hyperglycemia (principal); R11.0 Nausea; E11.40 Type 2 diabetes mellitus with diabetic neuropathy, unspecified; J44.9 Chronic obstructive pulmonary disease, unspecified; E78.5 Hyperlipidemia, unspecified; I13.0 Hypertensive heart and chronic kidney disease with heart failure and stage 1 through stage 4 chronic kidney disease, or unspecified chronic kidney disease; I50.9 Heart failure, unspecified; N18.30 Chronic kidney disease, stage 3 unspecified; E11.22 Type 2 diabetes mellitus with diabetic chronic kidney disease; E11.43 Type 2 diabetes mellitus with diabetic autonomic (poly)neuropathy; K31.84 Gastroparesis; Z87.891 Personal history of nicotine dependence; Z88.0 Allergy status to penicillin; Z88.1 Allergy status to other antibiotic agents; Z88.8 Allergy status to other drugs, medicaments and biological substances; Z88.5 Allergy status to narcotic agent; Z79.4 Long term (current) use of insulin; Z79.899 Other long term (current) drug therapy
CPT/HCPCS: 80053; 81001; 85025; 96374; 96375; 99284-25; J1790; J1815; J2405; J2550; J7030

== ENCOUNTER 2020-05-18 09:36 | Inpatient (IN) | payer OTHER ==
[~2020-05-18] VITALS: Ht 170.2 cm; Wt 127.2 kg
--- NOTE | ~2020-05-18 | OR ---
[facility] [address] [facility] [place], [place] [address] Draft DATE OF OPERATION: 05/21/2020 SURGEON: Shay Palomino DPM PREOPERATIVE DIAGNOSES: 1. Diabetic foot ulcer, left foot. 2. Infection, left foot. POSTOPERATIVE DIAGNOSES: 1. Diabetic foot ulcer, left foot. 2. Infection, left foot. HELPER STEEL FABRICATION SURGEON: Kristel Batista DPM ANESTHESIA: IV general with local block, left foot. POLITICAL SCIENCE CHAIR: Shay Varela. SPECIMEN TO PATHOLOGY: Aerobic and anaerobic cultures, left foot and left hallux. PROCEDURE: Debridement, left foot including the entire left hallux. DESCRIPTION OF PROCEDURE: The patient was brought to the operating room and placed on the table in the supine position. Anesthesia Department administered IV sedation, after which a local block was given to the left foot using a total of 10 mL of 1:1 mixture, 0.5% ropivacaine plain and 2% lidocaine plain. The left leg and foot were then prepped and draped in the usual sterile manner and an Esmarch was used for hemostasis. Attention was initially directed to the ulcer site, plantar left first metatarsal head. The ulcer was approximately 1 to 1.5 cm in diameter and internally necrotic-appearing. The ulcer was excised and this revealed a large amount of necrotic tissue underneath and debridement through the ulcer site, it was immediately evident that there was far too much necrotic tissue to obtain in this manner and the incision was extended to the left first intermetatarsal space and the entire web space between first and second digits PATIENT NAME: MILO,LINH CHARLES OPERATIVE REPORT DATE OF : 65 REPORT #: [id number] PHYSICIAN: SHAY PALOMINO DPM PCP: JOHN ARIZA MD REPORT IS CONFIDENTIAL AND NOT TO BE RELEASED WITHOUT AUTHORIZATION [facility] [address] [place], [place] [address] Draft opened from dorsal to plantar and connected to the ulcer. The incision then extended from the ulcer approximately about 1 cm and a large amount of necrotic tissue was then debrided from this area. There was a large area of necrosis medial first metatarsal head area. This was then excised and debridement extended on to the dorsum of the first metatarsal slightly as well as the entire area of plantar first metatarsal head and into the first intermetatarsal space as indicated. At this point, it was deemed inadequate debridement to attempt to debride tissue while preserving the left hallux and it was deemed necessary to remove the left hallux. At this time, there was too little viable tissue remaining and too much of the deep tissue including deep fascia and tendon area that would have to be debrided, which would basically be down to or near periosteum. At this time, the left hallux was disarticulated at the MTPJ leaving a dorsal flap of tissue with the hallux removed better access around the first metatarsal was achieved and an additional debridement performed including removal of the medial sesamoid, which was surrounded by necrotic tissue as well. At this time, the plantar fat pad under the forefoot was noted to have an area of necrosis distally under second digit. This area was followed and appeared to extend under the third digit as well. It also extended proximally, which was also debrided at this time. During debridement, the surgical site was periodically irrigated with normal saline and once debridement completed, the foot was squeezed to explore for any pockets or areas of purulence, which had not been adequately debrided, and this did not appear to produce additional purulence. The surgical site was then partially closed using the dorsal skin flap from the hallux, calcium sulfate, antibiotic beads using vancomycin were also placed into the wound site including the deep areas progressing lateral and proximal at the plantar forefoot and around the first metatarsal and first intermetatarsal space areas. The remainder of the surgical site was then packed with a Betadine-soaked 0.5 inch plain Nu-Gauze. Dressings then applied consisting of Adaptic, Betadine-soaked gauze, dry gauze, ABD pad, lexicon, and Coban. INTRAOPERATIVE COMPLICATIONS: None. ESTIMATED BLOOD LOSS: Less than 10 mL. The patient tolerated the procedure and the anesthesia well and left the operating room with vital signs stable and vascular status intact to the left foot as evidenced by hyperemia with removal of the Esmarch. Shay Palomino DPM PATIENT NAME: LINH PEDRAZA OPERATIVE REPORT DATE OF : [birth year] REPORT #: [id number] PHYSICIAN: SHAY PALOMINO DPM PCP: JONH ARIZA MD REPORT IS CONFIDENTIAL AND NOT TO BE RELEASED WITHOUT AUTHORIZATION [address] [address] Draft DFB/MODL /[id number] Copies: ~ PATIENT NAME: LINH PEDRAZA OPERATIVE REPORT DATE OF : [birth year] REPORT #: [id number] PHYSICIAN: SHAY PALOMINO DPM PCP: JOHN ARIZA MD REPORT IS CONFIDENTIAL AND NOT TO BE RELEASED WITHOUT AUTHORIZATION
[~2020-05-18 09:36] MED LIST changes: +REGLAN10 MG PO
[2020-05-18] MEDS ORDERED: AMOXICILLIN500 MG PO (10:27)
[2020-05-18] MEDS ORDERED: DOXYCYCLINE HY100 MG PO (10:27)
[2020-05-19] MEDS ORDERED: AMOX TR-K CLV1 EACH PO (09:38)
[2020-05-19] MEDS ORDERED: ROSUVASTATIN CA20 MG PO (09:40)
[2020-05-19] MEDS ORDERED: LISINOPRIL10 MG PO (09:40)
[2020-05-19] MEDS ORDERED: FLUOXETINE HCL20 MG PO (09:41)
[2020-05-19] MEDS ORDERED: ARIPIPRAZOLE2 MG PO (09:41)
[2020-05-19] MEDS ORDERED: TORSEMIDE20 MG PO (09:47)
[2020-05-19] MEDS ORDERED: INSULIN AS100 UNIT/3 SUB-Q (11:11)
[2020-05-20] MEDS ORDERED: METOCLOPRAMIDE10 MG PO (13:04)
[2020-05-20] MEDS ORDERED: FLUOXETINE HCL20 MG PO (13:04)
[2020-05-20] MEDS ORDERED: FLUTICASONE PRO16 GM NAS (13:05)
--- NOTE | 2020-05-22 14:52 | PATH ---
[facility] [facility] [address] [place], [place] [address] Signed SPECIMEN(S): A LEFT GREAT TOE SPECIMEN SOURCE: A. LEFT GREAT TOE CLINICAL HISTORY: Left great toe diabetic ulcer, left foot cellulitis. FINAL PATHOLOGIC DIAGNOSIS: Left great toe, amputation: - Toe with epidermal necrosis with underlying dermal and subcutaneous necrosis and abscess formation. - Subcutaneous abscess extends to skin and soft tissue resection margin. - Underlying bone with reactive changes, negative for acute osteomyelitis. - Detached fragment of bone, negative for acute osteomyelitis. NAL:cml:C2NR MICROSCOPIC EXAMINATION: Histologic sections of all submitted blocks are examined by light microscopy. These findings, together with the gross examination, support the pathologic diagnosis. GROSS DESCRIPTION: The specimen, labeled "LP," and designated on the requisition "left great toe, diabetic ulcer, left foot cellulitis," is received in formalin and consists of a disarticulated toe (6.6 x 3.2 x 2.8 cm) with brown-mascorro, thickened nail and area of brown-mascorro, devitalized and ulcerated tissue (2.0 x 1.5 cm) abutting the skin and soft tissue margins (inked blue). The remaining skin surface is pink-mascorro and unremarkable. Also received is a separate piece of bone (1.5 x 1.2 x 1.0 cm) surrounded by cartilaginous tissue with no identifiable bone margins. The bone underlying the area of ulceration is slightly hemorrhagic. The separate bone piece is sectioned to reveal an unremarkable cut surface. Windows Server Architect sections are submitted as follows: Cassette Summary: (A1) Devitalized, ulcerated tissue to skin and soft tissue margin (A2) Bone underlying the area of ulceration (decalcified in Decal Stat) (A3) Separate bone piece (decalcified in Decal Stat) AC (under the direct supervision of a pathologist) The Gross Description was prepared using a voice recognition system. The report PATIENT NAME: LINH PEDRAZA PATHOLOGY DATE OF : [birth year] REPORT #: [id number] PHYSICIAN: ELISE PATHOLOGY PCP: JOHN ARIZA MD REPORT IS CONFIDENTIAL AND NOT TO BE RELEASED WITHOUT AUTHORIZATION [facility] [address] [place], [place] [address] Signed was reviewed for accuracy; however, sound-alike word errors, addition and/or deletions may occur. If there is any question about this report, please contact Client Services. PERFORMING LABORATORY: The technical component was performed by [facility] [address] (Planograph Operator: Josiane Valdes MD; CLIA# [id number]). Professional interpretation was performed by [email or web address] [facility], [address] [address] (CLIA# [id number]). Diagnostician: Berta Avina MD Pathologist Electronically Signed 05/22/2020 Copies: ~ PATIENT NAME: LINH PEDRAZA PATHOLOGY DATE OF : [birth year] REPORT #: [id number] PHYSICIAN: ELISE PEMBERTON PCP: JOHN ARIZA MD REPORT IS CONFIDENTIAL AND NOT TO BE RELEASED WITHOUT AUTHORIZATION
--- NOTE | 2020-05-24 07:31 | CONS ---
[facility] [address], [place] [address] Signed DATE OF CONSULTATION: 05/23/2020 CHIEF COMPLAINT: Chronic nausea. HISTORY OF PRESENT ILLNESS: Linh is a 55-year-old obese diabetic female, who apparently has been smoking marijuana on a daily basis since she was a teenager. She frequently has uncontrolled diabetes and has peripheral neuropathy along with gastroparesis. She is known to have COPD as well. She came into the hospital actually with foot infection and requiring debridement by the html web developer. She is found to be anemic, but has the chronic nausea as well. There was some consideration to have her undergo at least upper endoscopy and possibly lower endoscopy while here in the hospital under more controlled conditions. She told me she had come into the hospital electively for outpatient endoscopy, but her blood sugars were so high, they had to cancel the case and then the next time she came, she forgot to take the Plavix and stopped taking the Plavix. Once again, she is on Plavix here in the hospital due to her significant vascular disease. She also is on Rocephin currently because of her foot infection. I was asked to see her as a general surgeon on-call. PAST MEDICAL HISTORY: 1. Diabetes. 2. Peripheral neuropathy. 3. Gastroparesis. 4. Obesity. 5. COPD. 6. Hypertension. 7. Hyperlipidemia. 8. Seizures. 9. Congestive heart failure. 10. Chronic renal failure. 11. Diverticulosis. PAST SURGICAL HISTORY: Includes: 1. Cholecystectomy. 2. Hysterectomy. 3. Right wrist surgery. 4. Drainage of abscesses. 5. Left lower extremity bypass graft. 6. Debridement of her foot. SOCIAL HISTORY: She quit smoking. She does not drink. She likes to smoke marijuana every day. She is Electronically Signed By: CALIN FLORES MD 05/24/20 0731 PATIENT NAME: LINH PEDRAZA CONSULTATION DATE OF : 65 REPORT #: [id number] PHYSICIAN: CALIN FLORES MD PCP: JOHN ARIZA MD REPORT IS CONFIDENTIAL AND NOT TO BE RELEASED WITHOUT AUTHORIZATION [facility] [address], [place] [address] Signed on disability because of her back. It looks like Dr. Ariza is her primary care provider. FAMILY HISTORY: Diabetes. REVIEW OF SYSTEMS: She had 10 systems reviewed and there was nothing new to add. ALLERGIES: 1. Penicillin. 2. Erythromycin. 3. Demerol. 4. Codeine. MEDICATIONS: 1. Plavix. 2. Carvedilol. 3. Insulin. 4. Promethazine. 5. Flovent. 6. Albuterol. 7. Dicyclomine. 8. DuoNeb. 9. Reglan. PHYSICAL EXAMINATION: VITAL SIGNS: Her blood pressure is 199/99, heart rate is 92, respiratory rate is 20, temperature is 98.4. She is 5 feet 7 inches at 127 kg. GENERAL: Linh is a 55-year-old female, lying in the left lateral decubitus position in her hospital bed. She looks much older than her stated age. She has clearly been a long-time smoker. She appears to be edentulous. LUNGS: Generally clear to auscultation bilaterally with mild rhonchi. HEART: Regular rate and rhythm without murmurs. ABDOMEN: Obese and quite protuberant but nontender. LABORATORY DATA: Her white blood cell count 10.3, hemoglobin 8.9, neutrophils 79, platelets 362, BUN 14, creatinine 1.1, total bilirubin 0.3, AST 9, ALT 9, alkaline phosphatase 127, albumin is 2.8, and the cultures from her left foot have grown out E coli. ASSESSMENT/PLAN: Linh is a 55-year-old obese diabetic female, who presents as above. She told me her nausea has been chronic for many many years. She said she never vomits, but a bit Electronically Signed By: CALIN FLORES MD 05/24/20 0731 PATIENT NAME: LINH PEDRAZA CONSULTATION DATE OF : 65 REPORT #: [id number] PHYSICIAN: CALIN FLORES MD PCP: JOHN ARIZA MD REPORT IS CONFIDENTIAL AND NOT TO BE RELEASED WITHOUT AUTHORIZATION [address] [address] Signed annoying to have all the nausea. She has been smoking marijuana daily since she was a teenager. She is diabetic and has gastroparesis and neuropathy. I reviewed with her the above findings and explained her the idea of upper and lower endoscopy. However, she is on Plavix currently and therefore would not be able to take any biopsies. That seems counterproductive. In addition, she has a rather significant foot infection currently and she is having that addressed by our html web developer. I explained to Linh I think it is best that she go ahead and take care of her foot at this point and then later as an outpatient when we can take her off Plavix, we can do the upper and lower endoscopy with biopsies. In that regard, she can follow up in my office sometime after she is discharged and her foot settles down. She has expressed understanding and agrees with the above plan. Calin Flores MD ALB/MODL /[id number] cc: MD John Colindres MD Copies: CALIN FLORES MD, LOHITH VEERAPPA MD ~ Electronically Signed By: CALIN FLORES MD 05/24/20 0731 PATIENT NAME: LINH PEDRAZA CONSULTATION DATE OF : 65 REPORT #: [id number] PHYSICIAN: CALIN FLORES MD PCP: JOHN ARIZA MD REPORT IS CONFIDENTIAL AND NOT TO BE RELEASED WITHOUT AUTHORIZATION
[2020-05-24] MEDS ORDERED: CEFDINIR300 MG PO (11:54)
[2020-05-24] MEDS ORDERED: CARVEDILOL25 MG PO (11:56)
[2020-05-24] MEDS ORDERED: LISINOPRIL40 MG PO (11:57)
[2020-05-24] MEDS ORDERED: METOCLOPRAMIDE10 MG PO (11:59)
== END 2020-05-24 14:20 | disposition home or self-care (01) | DRG 617 ==
LOC: ED 09:36 → MS 09:38
PROVIDERS: Podiatrist Foot Surgery; ADMIT Internal Medicine; ATTEND Internal Medicine
PROC: 0Y6Q0Z0 Detachment at Left 1st Toe, Complete, Open Approach (ICD-10-PCS; principal; 2020-05-21 06:45)
DX: E11.621 Type 2 diabetes mellitus with foot ulcer (principal); L03.116 Cellulitis of left lower limb; E11.52 Type 2 diabetes mellitus with diabetic peripheral angiopathy with gangrene; I96 Gangrene, not elsewhere classified; I13.0 Hypertensive heart and chronic kidney disease with heart failure and stage 1 through stage 4 chronic kidney disease, or unspecified chronic kidney disease; I50.32 Chronic diastolic (congestive) heart failure; Z68.41 Body mass index [BMI] 40.0-44.9, adult; E11.628 Type 2 diabetes mellitus with other skin complications; Z20.822 Contact with and (suspected) exposure to COVID-19; B96.20 Unspecified Escherichia coli [E. coli] as the cause of diseases classified elsewhere; L97.529 Non-pressure chronic ulcer of other part of left foot with unspecified severity; E11.43 Type 2 diabetes mellitus with diabetic autonomic (poly)neuropathy; K31.84 Gastroparesis; E11.649 Type 2 diabetes mellitus with hypoglycemia without coma; N17.9 Acute kidney failure, unspecified; E66.01 Morbid (severe) obesity due to excess calories; N18.30 Chronic kidney disease, stage 3 unspecified; E11.22 Type 2 diabetes mellitus with diabetic chronic kidney disease; E78.5 Hyperlipidemia, unspecified; F31.9 Bipolar disorder, unspecified; S92.352A Displaced fracture of fifth metatarsal bone, left foot, initial encounter for closed fracture; W22.09XA Striking against other stationary object, initial encounter; Z87.891 Personal history of nicotine dependence; Z88.0 Allergy status to penicillin; Z88.1 Allergy status to other antibiotic agents; Z88.5 Allergy status to narcotic agent; Z79.899 Other long term (current) drug therapy; Z79.02 Long term (current) use of antithrombotics/antiplatelets; Z79.4 Long term (current) use of insulin
CPT/HCPCS: 01480; 36415; 73630; 78264; 80048; 80053; 80202; 81001; 83036; 83605; 83735; 85025; 87040; 87070; 87075; 87077; 87186; 87205; 90471; 90715; 94640; 94760; 96365; 96366; 96367; 96368; 96372; 96375; 96376; 99284-25; A9270; A9541; C1713; C9803; G0378; J0696; J0780; J1650; J1815; J2001; J2405; J2550; J2704; J2765; J2795; J3370; J7030; J7040; J7050; J7121; U0003

== ENCOUNTER 2020-07-09 20:15 | Emergency (ER) | payer OTHER ==
[~2020-07-09] VITALS: Ht 170.2 cm; Wt 127.1 kg
[~2020-07-09 20:15] MED LIST changes: +AMOX TR-K CLV1 EACH PO; +AMOXICILLIN500 MG PO; +ARIPIPRAZOLE2 MG PO; +CARVEDILOL25 MG PO; +CEFDINIR300 MG PO; +FLUOXETINE HCL20 MG PO; +FLUTICASONE PRO16 GM NAS; +HYDROCODON-ACE1 EA11 PO; +INSULIN AS100 UNIT/3 SUB-Q; +LISINOPRIL40 MG PO; +METOCLOPRAMIDE10 MG PO; +ROSUVASTATIN CA20 MG PO; +TORSEMIDE20 MG PO
--- OUTSIDE RECORDS SUMMARY | 2020-07-09 20:28 | XMS ---
PreManage Notification: LINH PEDRAZA Security Civil Cad Designer Events No recent Security Events currently on file CRITERIA MET - [facility] - 2 Visits in 30 Days CARE PROVIDERS MILTON DASILVA [facility] 05/01/2018-Current PHONE: [phone] Rossi Guajardo Fraternity House Cook/Freight Hustler 05/12/2020-Current PHONE: [phone] Isabela has no Care Guidelines for this patient. Care History Medical/Surgical 06/06/2018 [facility] - PATIENT PCP HAS MADE A REFERRAL TO [facility]- PATIENT STARTS PULMONARY REHAB ON 06/20/18. E.D. VISIT COUNT (12 MO.) 7 [facility] TOTAL 7 NOTE: Visits indicate total known visits. ED/UCC VISIT TRACKING (12 MO.) 07/09/2020 20:16 [facility] TYPE: Emergency COMPLAINT: - FOOT PAIN 07/08/2020 17:25 [facility] [place] TYPE: Emergency COMPLAINT: - L ANKLE PAIN 05/18/2020 09:37 [facility] [place] TYPE: Emergency COMPLAINT: - BLOOD PROBLEMS 02/23/2020 10:42 [facility] [place] TYPE: Emergency COMPLAINT: - NAUSEA, WEAKNESS DIAGNOSES: - Type 2 diabetes mellitus with diabetic neuropathy, unspecified - Hyperlipidemia, unspecified - Allergy status to other antibiotic agents - Gastroparesis - Chronic kidney disease, stage 3 unspecified - Allergy status to penicillin - Hypertensive heart and chronic kidney disease with heart failure and stage 1 through stage 4 chronic kidney disease, or unspecified chronic kidney disease - Allergy status to narcotic agent - Chronic obstructive pulmonary disease, unspecified - Nausea - Unspecified abdominal pain - Allergy status to narcotic agent - Allergy status to other drugs, medicaments and biological substances - Type 2 diabetes mellitus with hyperglycemia - Allergy status to other drugs, medicaments and biological substances - Heart failure, unspecified - Type 2 diabetes mellitus with diabetic chronic kidney disease - Chronic kidney disease, stage 3 unspecified - senior living (current) use of insulin - Allergy status to other antibiotic agents - Other group home (current) drug therapy - Personal history of nicotine dependence - Type 2 diabetes mellitus with diabetic autonomic (poly)neuropathy 11/06/2019 18:54 [facility] [place] TYPE: Emergency COMPLAINT: - DIZZINESS 09/08/2019 17:47 [facility] [place] TYPE: Emergency COMPLAINT: - NAUSEA,DIARRHEA DIAGNOSES: - Allergy status to other antibiotic agents - Personal history of nicotine dependence - Other group home (current) drug therapy - Allergy status to narcotic agent - Type 2 diabetes mellitus with diabetic chronic kidney disease - Heart failure, unspecified - Diarrhea, unspecified - Type 2 diabetes mellitus with diabetic neuropathy, unspecified - Hypertensive heart and chronic kidney disease with heart failure and stage 1 through stage 4 chronic kidney disease, or unspecified chronic kidney disease - Allergy status to other drugs, medicaments and biological substances - Allergy status to penicillin - Nausea with vomiting, unspecified - Chronic obstructive pulmonary disease, unspecified - Hyperlipidemia, unspecified - Chronic kidney disease, stage 3 (moderate) - senior living (current) use of insulin 07/16/2019 22:51 [facility] TYPE: Emergency COMPLAINT: - N/V DIAGNOSES: - Allergy status to other antibiotic agents - Nausea with vomiting, unspecified - Chronic kidney disease, stage 3 (moderate) - Hyperlipidemia, unspecified - Other buttermaker (current) drug therapy - Type 2 diabetes mellitus with diabetic chronic kidney disease - Allergy status to narcotic agent - Chronic obstructive pulmonary disease, unspecified - Noninfective gastroenteritis and colitis, unspecified - Personal history of nicotine dependence - Hypertensive heart and chronic kidney disease with heart failure and stage 1 through stage 4 chronic kidney disease, or unspecified chronic kidney disease - Allergy status to penicillin - Type 2 diabetes mellitus with diabetic neuropathy, unspecified - Heart failure, unspecified INPATIENT VISIT TRACKING (12 MO.) 05/19/2020 15:08 [facility] TYPE: Medical Surgical COMPLAINT: - GASTROPARESIS DIAGNOSES: - Displaced fracture of fifth metatarsal bone, left foot, initial encounter for closed fracture - Hyperlipidemia, unspecified - Morbid (severe) obesity due to excess calories - Type 2 diabetes mellitus with hypoglycemia without coma - Non-pressure chronic ulcer of other part of left foot with unspecified severity - Personal history of nicotine dependence - Type 2 diabetes mellitus with diabetic chronic kidney disease - Non-pressure chronic ulcer of other part of left foot with unspecified severity - Type 2 diabetes mellitus with diabetic autonomic (poly)neuropathy - Acute kidney failure, unspecified - Allergy status to penicillin - buttermaker (current) use of antithrombotics/antiplatelets - Type 2 diabetes mellitus with diabetic chronic kidney disease - senior living (current) use of insulin - Gastroparesis - Acute kidney failure, unspecified - Gastroparesis - Hyperlipidemia, unspecified - Gangrene, not elsewhere classified - Unspecified Escherichia coli [E. coli] as the cause of diseases classified elsewhere - Chronic kidney disease, stage 3 unspecified - Other group home (current) drug therapy - Chronic diastolic (congestive) heart failure - Chronic diastolic (congestive) heart failure - Allergy status to other antibiotic agents - Personal history of nicotine dependence - Striking against other stationary object, initial encounter - Displaced fracture of fifth metatarsal bone, left foot, initial encounter for closed fracture - Body mass index [BMI]40.0-44.9, adult - Gangrene, not elsewhere classified - Chronic kidney disease, stage 3 unspecified - Body mass index [BMI]40.0-44.9, adult - buttermaker (current) use of antithrombotics/antiplatelets - Type 2 diabetes mellitus with diabetic autonomic (poly)neuropathy - Hypertensive heart and chronic kidney disease with heart failure and stage 1 through stage 4 chronic kidney disease, or unspecified chronic kidney disease - Type 2 diabetes mellitus with other skin complications - Allergy status to penicillin - Morbid (severe) obesity due to excess calories - Unspecified Escherichia coli [E. coli] as the cause of diseases classified elsewhere - Bipolar disorder, unspecified - Type 2 diabetes mellitus with diabetic peripheral angiopathy with gangrene - Allergy status to other antibiotic agents - Allergy status to narcotic agent - Other buttermaker (current) drug therapy - Hypertensive heart and chronic kidney disease with heart failure and stage 1 through stage 4 chronic kidney disease, or unspecified chronic kidney disease - Cellulitis of left lower limb - Allergy status to narcotic agent - Bipolar disorder, unspecified - Type 2 diabetes mellitus with foot ulcer - Type 2 diabetes mellitus with other skin complications - Type 2 diabetes mellitus with diabetic peripheral angiopathy with gangrene - Striking against other stationary object, initial encounter - Type 2 diabetes mellitus with foot ulcer - Type 2 diabetes mellitus with hypoglycemia without coma - senior living (current) use of insulin 11/06/2019 21:[address] [facility] [place] TYPE: Medical Surgical COMPLAINT: - ACUTE KIDNEY INJURY DIAGNOSES: - buttermaker (current) use of inhaled steroids - Hypomagnesemia - Hypo-osmolality and hyponatremia - Allergy status to penicillin - Type 2 diabetes mellitus with diabetic neuropathy, unspecified - Other specified abnormal findings of blood chemistry - Acute kidney failure, unspecified - Other group home (current) drug therapy - buttermaker (current) use of insulin - Allergy status to narcotic agent - senior living (current) use of antithrombotics/antiplatelets - Atherosclerotic heart disease of [place] coronary artery without angina pectoris - Viral intestinal infection, unspecified - Hypovolemia - Personal history of nicotine dependence - Allergy status to other antibiotic agents - Contact with and (suspected) exposure to other viral communicable diseases - Chronic obstructive pulmonary disease, unspecified - Hyperlipidemia, unspecified - Hypertensive chronic kidney disease with stage 1 through stage 4 chronic kidney disease, or unspecified chronic kidney disease - Chronic kidney disease, stage 3 (moderate) - buttermaker (current) use of oral hypoglycemic drugs - Abnormal findings on diagnostic imaging of heart and coronary circulation - Acidosis - Type 2 diabetes mellitus with diabetic chronic kidney disease [email or web address]
[2020-07-09] MEDS ORDERED: PERCOCET 5-3251 EACH PO (21:57)
[2020-07-10] MEDS ORDERED: FLUOXETINE HCL20 M1 PO (08:22)
== END 2020-07-09 22:21 | disposition home or self-care (01) ==
LOC: ED 20:15
DX: S82.852A Displaced trimalleolar fracture of left lower leg, initial encounter for closed fracture (principal); X58.XXXA Exposure to other specified factors, initial encounter; E11.40 Type 2 diabetes mellitus with diabetic neuropathy, unspecified; J44.9 Chronic obstructive pulmonary disease, unspecified; I13.0 Hypertensive heart and chronic kidney disease with heart failure and stage 1 through stage 4 chronic kidney disease, or unspecified chronic kidney disease; E78.5 Hyperlipidemia, unspecified; I50.9 Heart failure, unspecified; N18.30 Chronic kidney disease, stage 3 unspecified; E11.22 Type 2 diabetes mellitus with diabetic chronic kidney disease; E11.43 Type 2 diabetes mellitus with diabetic autonomic (poly)neuropathy; K31.84 Gastroparesis; Z87.891 Personal history of nicotine dependence; Z88.5 Allergy status to narcotic agent; Z88.8 Allergy status to other drugs, medicaments and biological substances; Z88.0 Allergy status to penicillin; Z88.1 Allergy status to other antibiotic agents; Z79.899 Other long term (current) drug therapy; Z79.4 Long term (current) use of insulin
CPT/HCPCS: 99283

== ENCOUNTER 2020-07-09 23:46 | Inpatient (IN) | payer OTHER ==
[~2020-07-09] VITALS: Ht 170.2 cm; Wt 133.7 kg
[~2020-07-09 23:46] MED LIST changes: +PERCOCET 5-3251 EACH PO
--- OUTSIDE RECORDS SUMMARY | 2020-07-09 23:52 | XMS ---
PreManage Notification: LINH PEDRAZA Security Regional Guide Events No recent Security Events currently on file CRITERIA MET - [facility] - 2 Visits in 30 Days CARE PROVIDERS MILTON DASILVA [facility] 05/01/2018-Current PHONE: [phone] Rossi Guajardo Social And Political Studies Professor/Salicylic Acid Blender 05/12/2020-Current PHONE: [phone] Isabela has no Care Guidelines for this patient. Care History Medical/Surgical 06/06/2018 [facility] - PATIENT PCP HAS MADE A REFERRAL TO [facility]- PATIENT STARTS PULMONARY REHAB ON 06/20/18. E.D. VISIT COUNT (12 MO.) 8 [facility] TOTAL 8 NOTE: Visits indicate total known visits. ED/UCC VISIT TRACKING (12 MO.) 07/09/2020 23:47 [facility] TYPE: Emergency COMPLAINT: - WEAKNESS 07/09/2020 20:16 [facility] TYPE: Emergency COMPLAINT: - FOOT PAIN/ NO INJ 07/08/2020 17:25 [facility] TYPE: Emergency [...] Chronic kidney disease, stage 3 unspecified - termite treater helper (current) use of insulin - Allergy status to other antibiotic agents - Other terminal carman (current) drug therapy - Personal history of nicotine dependence - Type 2 diabetes mellitus with diabetic autonomic (poly)neuropathy 11/06/2019 18:54 [facility] TYPE: Emergency COMPLAINT: - DIZZINESS 09/08/2019 17:47 [facility] TYPE: Emergency COMPLAINT: - NAUSEA,DIARRHEA DIAGNOSES: - Allergy status to other antibiotic agents - Personal history of nicotine dependence - Other terminal carman (current) drug therapy - Allergy status to [...] Chronic kidney disease, stage 3 (moderate) - termite treater helper (current) use of insulin 07/16/2019 22:51 [facility] [...] unspecified - Allergy status to penicillin - [facility] (current) use of antithrombotics/antiplatelets - Type 2 diabetes mellitus with diabetic chronic kidney disease - termite treater helper (current) use of insulin - Gastroparesis - Acute kidney failure, unspecified - Gastroparesis - Hyperlipidemia, unspecified - Gangrene, not elsewhere classified - Unspecified Escherichia coli [E. coli] as the cause of diseases classified elsewhere - Chronic kidney disease, stage 3 unspecified - Other long-term (current) drug therapy - Chronic diastolic (congestive) [...] - Body mass index [BMI]40.0-44.9, adult - termite treater helper (current) use of antithrombotics/antiplatelets - Type 2 [...] Allergy status to narcotic agent - Other long-term (current) drug therapy - Hypertensive heart and [...] diabetes mellitus with hypoglycemia without coma - [facility] (current) use of insulin 11/06/2019 21:57 [facility] TYPE: Medical Surgical COMPLAINT: - ACUTE KIDNEY INJURY DIAGNOSES: - termite treater helper (current) use of inhaled steroids - Hypomagnesemia - Hypo-osmolality and hyponatremia - Allergy status to penicillin - Type 2 diabetes mellitus with diabetic neuropathy, unspecified - Other specified abnormal findings of blood chemistry - Acute kidney failure, unspecified - Other long-term (current) drug therapy - [facility] (current) use of insulin - Allergy status to narcotic agent - [facility] (current) use of antithrombotics/antiplatelets - Atherosclerotic heart disease of [place] coronary artery without angina pectoris - Viral [...] Chronic kidney disease, stage 3 (moderate) - [facility] (current) use of oral hypoglycemic drugs - Abnormal findings on diagnostic imaging of heart and coronary circulation - Acidosis - Type 2 diabetes mellitus with diabetic chronic kidney disease [email or web address]
--- NOTE | 2020-07-10 06:57 | NUR ---
0515 PATIENT ARRIVED TO THE UNIT. PATIENT IS DROWSY, WAKES EASILY. PATIENT IS UNABLE TO ASSIST MUCH IN MOVING TO BED. 4 PERSON ASSIST TO MOVE TO BED. PATIENT TOLERATED WELL. 0530 RT CALLED FOR SCHEDULED NEB 0600 PATIENT IS SLEEPING, WAKES EASILY AND IS ORIENTED X4. PATIENT REPORTS PAIN 5/10, PRN OXY PROVIDED. WALKING BOOT OPENED TO VIEW WOUND. WOUND EDGES ARE INTACT, SCANT DRAINAGE. NON-ADHEARANT GAUZE LEFT IN PLACE. ICE PACK APPLIED TO ANKLE. ELEVATED ON PILLOW. URNAL EMPTIED. CLEAR YELLOW URINE NOTED. VS STABLE. IV FLUIDS PER ORDER, SITE WNL. PATIENT DENIED ANY NEEDS AT THIS TIME.
[2020-07-10] MEDS ORDERED: FLUOXETINE HCL20 M1 PO (08:22)
--- NOTE | 2020-07-10 08:30 | NUR ---
PT IS LAYING IN BED ASLEEP BUT EASY TO AROUSE. TOLERATES FLUID INTAKE. WOUND ON LEFT TOE DRESSED AND PROTECTED, PICTURES TAKEN. PT REPORTS PAIN, PRN TYLENOL GIVEN. PT DENIES NAUSEA. CALL LIGHT WITHIN REACH. BREAKFAST ORDERED.
--- NOTE | 2020-07-10 11:13 | NUR ---
PT STATES SHE IS COLD. WARM BLANKETS PLACED, SHIVERING HAS DECREASED. DOES NOT REPORT ANY PAIN OR NAUSEA. CALL LIGHT WITH IN REACH. PT IS LAYING IN BED.
--- NOTE | 2020-07-10 12:10 | NUR ---
Spoke with pt, who is drowsy and falls asleep several times during our conversations. Denies need for me to leave and return later. Lives with her niece Hortensia in [place]. Pt has had recent foot surgery and has a boot in place. Niece is her paid caregiver. They live in a 2 story home and pt uses only the main floor. Pt plans on dc to home when cleared medically.
--- NOTE | 2020-07-10 14:07 | NUR ---
PT LAYING IN BED, COVERS PULLED UP. TV ON, PT FEELS SHE IS MAKING POSITIVE STRIDES. LEFT G.POST AND BLESSING. WILL CHECK AGAIN
--- NOTE | 2020-07-10 16:51 | NUR ---
MED REC COMPLETE
--- NOTE | 2020-07-10 19:30 | NUR ---
Report recieved, care of Pt assumed at this time. Pt resting with eyes closed, breathing even and unlabored. IV fluids infusing, call light within reach. No assessed needs at this time.
--- NOTE | 2020-07-10 20:13 | NUR ---
in room for medication administration and for initial assessment. Pt is alert and oriented, answering all questions appropriately. Pt has a temperature of 99.9 Orally. provided education about coughing and deep breathing. Instructions on use of IS given. Pt lungs sound diminished in both bases, clear in the upper air levine. Dr. Teran aware of low grade temp. Pt complains of pain in left lower leg pain that radiates up to her left hip. Assisted with repositioning and discussed pain management plan for evening. Plan of care established, call light within reach. no further needs a this time.
--- NOTE | 2020-07-10 21:30 | NUR ---
Responded to Pt call light. Assisted pt with repositioning left leg in bed. New ice pack applied. Call light within reach. no further needs at this time.
--- NOTE | 2020-07-10 22:34 | NUR ---
pt complains of 8/10 pain in left leg. Give prn pain medication at this time and asssited with repositioning. [facility] Will continue to monitor.
--- NOTE | 2020-07-10 23:57 | NUR ---
assessment completed. Pt attempted to have bowel movement in bed sol but was only able to pass gas. lungs sounds clear. Temperature down to 99.2 at this time. Pt states pain medication has decreased pain level from 8/10 to 6/10. call light within reach. no further needs at this time.
--- NOTE | 2020-07-11 02:35 | NUR ---
responded to Pt call light, pt complains of pain she rates 10/10 in left leg. pain is a constant ache but also sharp at times and radiates up into her left hip. repostioned Pt in bed, ice pack provided, pain medication administered (see emar). Will continue to monitor.
--- NOTE | 2020-07-11 03:18 | NUR ---
IN ROOM TO REPOSITION PTS LEFT LEG,REPORTS PAIN HAS GONE DOWN TO A 6/10 BUT IS STILL QUITE PAINFUL. DISCUSSED PAIN MEDICATION SCHEDULE. ASSESSMENT COMPLETED AT THIS TIME. PT USED IS AND DID COUGHING AND DEEP BREATHING AT THIS TIME. PT EXPRESSED FRUSTRATION WITH PAIN. THERAPEUTIC COMMUNICATION. NEW BAG OF IV FLUIDS INFUSING. CALL LIGHT WITHIN REACH. WILL CONITNUE TO MONITOR.
--- NOTE | 2020-07-11 05:15 | NUR ---
LAB IN TO DRAW BLOOD, PT WATER REFILLED. DENIES FURTHER NEEDS AT THIS TIME.
--- NOTE | 2020-07-11 05:59 | NUR ---
responded to call light. Pt complains of left leg pain, particularily in her heal. Allevyn dressing placed on heal for comfort. discussed pain medication regimen. call light within reach. no further needs at this time.
--- NOTE | 2020-07-11 08:00 | NUR ---
PT ASLEEP, WENT IN FOR ASSESSMENT AND VITALS. 02 WAS AT 87 ON RA, PLACED ON 2L NASAL CANULA. PT EASY TO AROUSE. SHE DENIES ANY PAIN OR NAUSEA AT THIS TIME. STATES SHE IS QUITE HUNGRY. REPOSITIONED HER LEG FOR COMFORT. NEW ICE BAG PLACED OVER LEFT LEG WITH PILLOW CASE UNDERNEATH. CALL LIGHT WITHIN REACH. PT
--- NOTE | 2020-07-11 09:25 | NUR ---
PT IS SAT UP IN BED TO EAT HER BREAKFAST. CATHETER EMPTIED. DENIES PAIN OR NAUSEA. NC 2L, 02 98%. CALL LIGHT WITHIN REACH.
--- NOTE | 2020-07-11 09:42 | NUR ---
LOW POTASSIUM MENU LEFT AT BEDSIDE FOR PATIENT. SHE WAS SLEEPING.
--- NOTE | 2020-07-11 10:00 | NUR ---
NOTIFIED BY DR ARIZA, PT WILL NOT BE ABLE TO HAVE SURGERY ON ANKLE AT THIS TIME DUE TO INFECTION IN TOE. SHE WILL NEED PLACEMENT UNTIL SHE IS READY FOR SURGERY.
--- NOTE | 2020-07-11 10:20 | NUR ---
IN TO SPEAK WITH PT AND DR FAM ARRIVES FOR CONSULT. UPDATED PT SHE CANNOT HAVE SURGERY UNTIL INFECTION HEALS. SPOKE WITH DR AFTER HE COMPLETED CONSULT AND UPDATED DR ARIZA FEELS PT NEEDS PLACEMENT AND HE IS IN AGREEMENT AND LET THE PT KNOW IT WILL BE WEEKS BEFORE SHE CAN HAVE SURGERY. PT STATES HER NIECE IS UNABLE TO CARE FOR HER WITH HER FX ANKLE. GAVE PT PREFERENCES FOR SNFS IN THE AREA AND SHE WOULD LIKE TO STAY IN [place] IF POSSIBLE, OTHERWISE, SHE WILL TAKE WHICHEVER SNF HAS A BED OPEN FIRST. CALLED AND CHECKED PLACEMENT AND SPOKEW WITH [facility] AND SHE STATES SHE BELIEVES THEY WILL HAVE BED AVAILABILITY OVER THE WEEKEND. WILL SEND CHART WHEN NOTES ARE COMPLETED BY THE PHILIP.
--- NOTE | 2020-07-11 10:35 | NUR ---
FULL REPORT GIVEN TO LIBRADO DYE, ALL QUESTIONS ANSWERED. PLAN MADE TO TRANSFER PT AFTER ULTRASOUND GUIDED IV ATTEMPTED.
--- NOTE | 2020-07-11 11:05 | NUR ---
KAELA DYE ABLE TO START ULTRASOUND GUIDED IV IN LEFT AC, 18 GAGUE ON SECOND ATTEMPT. PT DIMITRIS WELL.
--- NOTE | 2020-07-11 11:45 | NUR ---
NOVELTY CHAIN MAKER IN ROOM TO DO ORDERED ULTRASOUND OF PT LEFT LEG. PT DIMITRIS WELL
--- NOTE | 2020-07-11 12:00 | NUR ---
FACE SHEET, H&P, NOTES, CONSULT FROM DR FAM, OPAL TEST, MEDICATIN LIST FAXED TO [facility]. PER DR ARIZA PT MAY DC TO [facility] THIS WEEKEND. PER PT HER FIRST CHOICE IS TO STAY IN TOWN, BUT WILL GO [place]ER[place]VER THERE IS A BED OPEN. I SPOKE WITH HONEY FROM [facility] AND SHE REQUESTS A CHART AND STATES THEY COULD TAKE THIS PT OVER THE WEEKEND IF THEY CAN GET AUTH FROM [facility].
--- NOTE | 2020-07-11 12:15 | NUR ---
IN ROOM TO EVALUATE PT LEFT FOOT, AND DRESS WOUND. PT DIMITRIS WELL. PT REMAINS ALERT AND ORIENTED X4, COOPERATIVE AND POLITE.
--- NOTE | 2020-07-11 12:30 | NUR ---
pt transfered to med/surg room 112 via bed, all personal belongings went with pt. pt erick transfer well.
--- NOTE | 2020-07-11 12:30 | NUR ---
PT ARRIVED TO MED SURG UNIT VIA STRETCHER. REPORT RECEIVED FROM AJ CCU RN. PT STATES PAIN IS WELL CONTROLLED AT THIS TIME. DRESSING CHANGED DONE BY DR ANDINO TO LEFT BIG TOE, CDI. LLE ELEVATED AND BOOT OPEN, ICE PLACED ON LATERAL LLE FOR SWELLING. PT ON 1 L SATING 98%. LUNG SOUNDS CLEAR BUL, DIMINISHED IN BASES. PT DENIES SOB, PAIN OR NAUSEA. GIVEN LUNCH TRAY. CBG 169, 1 UNIT SS HUMALOG GIVEN. PT DENIES FURTHER NEEDS. CALL LIGHT IN REACH
--- NOTE | 2020-07-11 13:00 | NUR ---
NOTIFIED PT MAY NOT BE ABLE TO DC THIS WEEKEND SHE MAY REQUIRE FURTHER SURGERY. UPDATED EKTA AT [facility], SHE STATES SHE HAS ALREADY REQUESTED AUTH, BUT HAS NOT RECEIVED.
--- NOTE | 2020-07-11 16:50 | NUR ---
PT GONE TO MRI
--- NOTE | 2020-07-11 17:13 | EKG ---
[facility] [address], [place] [address] Signed Normal sinus rhythm Left axis deviation Left bundle branch block Abnormal ECG When compared with ECG of 10-JUL-2020 01:50, (Unconfirmed) No significant change was found Confirmed by JOHN ARIZA MD ([id number]) on 07/11/2020 5:13:14 PM Electronically Signed By: JOHN ARIZA MD 07/11/20 1713 PATIENT NAME: LINH PEDRAZA Electrocardiogram DATE OF : 65 PHYSICIAN: JOHN ARIZA MD REPORT #: [id number] REPORT IS CONFIDENTIAL AND NOT TO BE RELEASED WITHOUT AUTHORIZATION
--- NOTE | 2020-07-11 17:13 | EKG ---
[facility] [address] [place] [address] Signed Normal sinus rhythm Left axis deviation Left bundle branch block Abnormal ECG When compared with ECG of 18-MAR-2020 10:18, Nonspecific T wave abnormality, improved in Lateral leads Confirmed by JOHN ARIZA MD ([id number]) on 07/11/2020 5:13:06 PM Electronically Signed By: JOHN ARIZA MD 07/11/20 1713 PATIENT NAME: LINH PEDRAZA CHARLES Electrocardiogram DATE OF : 65 PHYSICIAN: JOHN ARIZA MD REPORT #: [id number] REPORT IS CONFIDENTIAL AND NOT TO BE RELEASED WITHOUT AUTHORIZATION
--- NOTE | 2020-07-11 17:25 | NUR ---
PT ARRIVED BACK FROM MRI. REPOSITIONED IN BED. DINNER TRAY IN. CBG DONE AND 1 UNIT OF SS HUMALOG GIVEN. OTHER SCHEDULED EVENING MEDS GIVEN. WATER REFRESHED. CALL LIGHT IN REACH. LLE ELEVATED.
--- NOTE | 2020-07-11 19:15 | NUR ---
SHIFT REPORT RECEIVED FROM LISS DYE. PT RESTING IN BED. STEPHEN GONZALESL. Jose Guadalupe MCDONALD, SL. PT DENIES PAIN AT THIS TIME. LLE ELEVATED, REDNESS AND SWELLING NOTED. LEFT BIG TOE BANDAGED, CDI. LEFT ANKLE BRUISING NOTED. ICE PACK PROVIDED. NO OTHER NEEDS. CALL LIGHT IN REACH.
--- NOTE | 2020-07-11 21:28 | NUR ---
ASSESSMENT, VS AND I&O COMPLETED. GCS 15, A&O X4. LUNGS CLEAR IN UPPER LOBES, DIMINISHED IN LOWER LOBES. HEART TONES HAVE MURMUR. ABD OBESE, SOFT, NONTENDER, BOWEL TONES ACTIVE. LLE HAS GENERALIZED EDEMA, BRUISING, DEFORMITY AND NUMBNESS/TINGLING. LEFT DORSAL PULSE FAINT, REGULAR. RIGHT FOOT HAS NUMBNESS AND TINGLING, TRACE EDEMA. LLE PAIN 5/10, ICE PACK PROVIDED. IVs CDI, FLUSHED WELL, WNL, IV FLUIDS INFUSING IN MARIZOL IV. MITCHELL WNL, CLEAR, YELLOW OUTPUT. ICE WATER PROVIDED. NO OTHER NEEDS AT THIS TIME. CALL [facility] IN REACH.
--- NOTE | 2020-07-11 22:04 | NUR ---
LLE PAIN 6/10, PRN PAIN MEDS PROVIDED. NO OTHER NEEDS. CALL LIGHT IN REACH.
--- NOTE | 2020-07-12 | NUR ---
PT RESTING IN BED, EYES CLOSED. RR EVEN, UNLABORED. IV FLUIDS INFUSING PER ORDER. CALL LIGHT IN REACH.
--- NOTE | 2020-07-12 02:00 | NUR ---
PT STATES SHE HAS 6/10 LLE PAIN, PRN PAIN MEDS PROVIDED. ASSESSMENT COMPLETED. MITCHELL WNL. GCS 15, A&O X4. LUNGS CLEAR IN UPPER LOBES, DIMINISHED IN LOWER LOBES. HEART TONES REGULAR. ABD OBESE, NONTENDER, PT STATES NORMAL, BOWEL TONES ACTIVE. NUMBNESS AND TINGLING IN BLE. LLE ELEVATED, BRUISING, GENERALIZED EDEMA NOTED. PULSE AND MOTOR INTACT IN BLE. IV WNL, IV FLUIDS INFUSING PER ORDER. ICE WATER AND TEA PROVIDED. NO OTHER NEEDS AT THIS TIME. CALL LIGHT IN REACH.
--- NOTE | 2020-07-12 03:36 | NUR ---
IV PUMP ALARMING. NEW BAG IV FLUIDS PROVIDED. NO OTHER NEEDS AT THIS TIME. CALL LIGHT IN REACH.
--- NOTE | 2020-07-12 09:07 | NUR ---
PT AWAKE IN BED EATING BREAKFAST. CBG THIS AM 123, NO SLIDING SCALE HUMALOG REQUIRED. TOLERATING 60 G C DIET WELL. OXYCODONE AND TYLENOL GIVEN FOR 6/10 LLE PAIN. PT REPOSITIONED TO RIGHT SIDE. LUNG SOUNDS CLEAR BUL, DIMINISHED IN BASES. EDUCATED ON INCENTIVE SPIROMETER AT BEDSIDE. PT SATING 95% ON ROOM AIR. BOWEL TONES ACTIVE. VSS. LLE GENERLIZED SWELLING/BRUISING R/T BIMALLEOLAR FX, ELEVATED W/ PILLOWS AND ICE PACK PLACED. CMS INTACT. VSS. BP ELEVATED AT 172/65, PT RECEIVED SCHEDULED CARVEDILOL. OFFERED BED BATH THIS AM, PT STATES SHE WOULD LIKE TO TAKE A SHORT NAP SHE DID NOT SLEEP LAST NIGHT AT ALL. PT RESTING, CALL LIGHT IN REACH.
--- NOTE | 2020-07-12 12:00 | NUR ---
PT GIVEN FULL BED BATH. DRESSING CHANGED TO LEFT FOOT, CLEANSED W/ HIBICLENS AND DRESSED W/ IODOSORB GEL, GAUZE AND WRAPPED IN COBAN FOR SECUREMENT. CBG 163, 1 UNIT OF INSULIN GIVE. PT REPORTS PAIN IS WELL CONTROLLED W/ OXYCODONE AND TYLENOL. PT IS AWARE THAT SHE MAY BE TRANSFERRING TO [place] IN [place] IF ACCEPTED PER DR. ARIZA. NERVOUS ABOUT TRANSFER, PROVIDED THERAPEUTIC COMMUNICATION PT STATES SHE KNOWS ALL WILL BE WELL AND "IT'S FOR THE BETTER." EATING LUNCH NOW. CALL LIGHT IN REACH.
--- NOTE | 2020-07-12 14:14 | NUR ---
AFTERNOON ASSESSMENT COMPLETED. NO ACUTE CHANGES. VSS. PT REQUESTING PAIN MEDICATION AND GIVEN TYLENOL & OXYCODONE. RLE REMAINS ELEVATED W/ ICE PACK. ICE WATER REFRESHED. BED ESTABLISHED AT [facility] IN [place] AND PT AWARE. STATES SHE IS HAPPY WITH ALL HER CARE HERE FROM [facility] AND NURSES FEELS "IN LOOP WITH WHAT'S GOING ON." NO FURTHER CONCERNS. CALL LIGHT IN REACH, WATCHING TV.
--- NOTE | 2020-07-12 15:50 | NUR ---
VSGloria. PT PRAMOD. [facility] TRANSPORTING PT TO [facility]. REPORT CALLED TO GERARD DYE @ [phone]. PT DEPARTED @ [phone].
== END 2020-07-12 16:00 | disposition short-term general hospital (02) | DRG 641 ==
LOC: ED 23:46 → CCU 07-10 05:14 → MS 07-11 12:30
PROVIDERS: ADMIT Internal Medicine; ATTEND Internal Medicine
DX: E87.5 Hyperkalemia (principal); N17.9 Acute kidney failure, unspecified; I13.0 Hypertensive heart and chronic kidney disease with heart failure and stage 1 through stage 4 chronic kidney disease, or unspecified chronic kidney disease; I50.32 Chronic diastolic (congestive) heart failure; M86.8X7 Other osteomyelitis, ankle and foot; T82.898A Other specified complication of vascular prosthetic devices, implants and grafts, initial encounter; Z20.822 Contact with and (suspected) exposure to COVID-19; N14.1 Nephropathy induced by other drugs, medicaments and biological substances; T36.8X5A Adverse effect of other systemic antibiotics, initial encounter; E11.42 Type 2 diabetes mellitus with diabetic polyneuropathy; J42 Unspecified chronic bronchitis; G47.33 Obstructive sleep apnea (adult) (pediatric); F31.9 Bipolar disorder, unspecified; E78.5 Hyperlipidemia, unspecified; I77.1 Stricture of artery; E11.22 Type 2 diabetes mellitus with diabetic chronic kidney disease; N18.30 Chronic kidney disease, stage 3 unspecified; D64.9 Anemia, unspecified; I25.10 Atherosclerotic heart disease of native coronary artery without angina pectoris; S82.852D Displaced trimalleolar fracture of left lower leg, subsequent encounter for closed fracture with routine healing; E11.69 Type 2 diabetes mellitus with other specified complication; E11.51 Type 2 diabetes mellitus with diabetic peripheral angiopathy without gangrene; Z87.891 Personal history of nicotine dependence; Z88.0 Allergy status to penicillin; Z88.5 Allergy status to narcotic agent; Z88.1 Allergy status to other antibiotic agents; Z79.899 Other long term (current) drug therapy; Z79.4 Long term (current) use of insulin; Z79.02 Long term (current) use of antithrombotics/antiplatelets; Z79.891 Long term (current) use of opiate analgesic
CPT/HCPCS: 36415; 51702; 71045; 73721; 80048; 80053; 80069; 81001; 82550; 82570; 82728; 83036; 83540; 84300; 84466; 84540; 85025; 93005; 93010; 93926; 94640; 94644; 94645; 94667; 94760; 99285-25; C9803; J0610; J1170; J1650; J1815; J2405; J7030; J7070; U0003

== ENCOUNTER 2020-08-22 16:57 | Emergency (ER) | payer OTHER ==
[~2020-08-22] VITALS: Ht 170.2 cm; Wt 122.6 kg
[~2020-08-22 16:57] MED LIST changes: +FLUOXETINE HCL20 M1 PO
[2020-08-22] MEDS ORDERED: OXYCODONE HCL5 MG PO (17:26)
[2020-08-22] MEDS ORDERED: ASPIRIN81 MG PO (17:29)
[2020-08-22] MEDS ORDERED: REGLAN10 MG PO (19:11)
[2020-08-22] MEDS ORDERED: PROMETHAZINE HC25 M1 PO (19:12)
== END 2020-08-22 19:53 | disposition home or self-care (01) ==
LOC: ED 16:57
DX: K29.00 Acute gastritis without bleeding (principal); K31.84 Gastroparesis; E11.40 Type 2 diabetes mellitus with diabetic neuropathy, unspecified; J44.9 Chronic obstructive pulmonary disease, unspecified; I12.9 Hypertensive chronic kidney disease with stage 1 through stage 4 chronic kidney disease, or unspecified chronic kidney disease; E78.5 Hyperlipidemia, unspecified; I50.9 Heart failure, unspecified; N18.30 Chronic kidney disease, stage 3 unspecified; Z87.891 Personal history of nicotine dependence; Z88.5 Allergy status to narcotic agent; Z88.8 Allergy status to other drugs, medicaments and biological substances; Z88.0 Allergy status to penicillin; Z88.1 Allergy status to other antibiotic agents; Z88.2 Allergy status to sulfonamides; Z79.899 Other long term (current) drug therapy; Z79.4 Long term (current) use of insulin; Z79.82 Long term (current) use of aspirin
CPT/HCPCS: 80053; 83690; 85025; 96374; 96375; 96376; 99284-25; J1790; J2765; J7030

== ENCOUNTER 2020-09-23 18:10 | Emergency (ER) | payer OTHER ==
[~2020-09-23] VITALS: Ht 170.2 cm; Wt 122.5 kg
[~2020-09-23 18:10] MED LIST changes: +ASPIRIN81 MG PO; +OXYCODONE HCL5 MG PO
--- OUTSIDE RECORDS SUMMARY | 2020-09-23 18:14 | XMS ---
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 Care History Medical/Surgical 07/10/2020 [facility] - Patient is currently established with [facility]. If patient is seen in the ED during business hours. Please contact CHWs at [facility]. Care Recommendation: If this patient has had 5 or more Emergency Department visits in the last 12 months.\T\nbsp; Patient will require education on the scope and purpose of the ED as an acute care provider not a Primary Care Provider and should not be utilized for chronic conditions.\T\nbsp; These are guidelines and the provider should exercise clinical judgment when providing care. 06/06/2018 [facility] - PATIENT PCP HAS MADE A REFERRAL TO [facility]- PATIENT STARTS PULMONARY REHAB ON 06/20/18. E.D. VISIT COUNT (12 MO.) 8 [facility]. TOTAL 8 NOTE: Visits indicate total known visits. ED/UCC VISIT TRACKING (12 MO.) 09/23/2020 18:11 [facility] TYPE: Emergency COMPLAINT: - LOWER LEG SKIN PROBLEM 08/22/2020 16:57 [facility] TYPE: Emergency COMPLAINT: - VOMITING DIAGNOSES: - Acute gastritis without bleeding - Type 2 diabetes mellitus with diabetic neuropathy, unspecified - Allergy status to sulfonamides - Allergy status to penicillin - lobsterman (current) use of aspirin - Chronic kidney disease, stage 3 unspecified - Allergy status to other antibiotic agents - Allergy status to other drugs, medicaments and biological substances - Gastroparesis - Hypertensive chronic kidney disease with stage 1 through stage 4 chronic kidney disease, or unspecified chronic kidney disease - Heart failure, unspecified - Other residential (current) drug therapy - Chronic obstructive pulmonary disease, unspecified - Personal history of nicotine dependence - Nausea with vomiting, unspecified - Allergy status to narcotic agent - shelter (current) use of insulin - Hyperlipidemia, unspecified 07/09/2020 23:47 [facility] [place] TYPE: Emergency COMPLAINT: - WEAKNESS 07/09/2020 20:16 [facility] [place] TYPE: Emergency COMPLAINT: - FOOT PAIN/ NO INJ DIAGNOSES: - Type 2 diabetes mellitus with diabetic chronic kidney disease - Chronic obstructive pulmonary disease, unspecified - Personal history of nicotine dependence - Exposure to other specified factors, initial encounter - Type 2 diabetes mellitus with diabetic autonomic (poly)neuropathy - lobsterman (current) use of insulin - Type 2 diabetes mellitus with diabetic neuropathy, unspecified - Hypertensive heart and chronic kidney disease with heart failure and stage 1 through stage 4 chronic kidney disease, or unspecified chronic kidney disease - Displaced trimalleolar fracture of left lower leg, initial encounter for closed fracture - Other residential (current) drug therapy - Allergy status to other antibiotic agents - Heart failure, unspecified - Gastroparesis - Allergy status to penicillin - Allergy status to narcotic agent - Hyperlipidemia, unspecified - Chronic kidney disease, stage 3 unspecified - Allergy status to other drugs, medicaments and biological substances 07/08/2020 17:25 [facility] [place] TYPE: Emergency COMPLAINT: - L ANKLE PAIN DIAGNOSES: - Type 2 diabetes mellitus with diabetic neuropathy, unspecified - Gastroparesis - Overexertion from prolonged static or awkward postures, initial encounter - Allergy status to other antibiotic agents - Type 2 diabetes mellitus with diabetic autonomic (poly)neuropathy - Type 2 diabetes mellitus with diabetic chronic kidney disease - Hypertensive heart and chronic kidney disease with heart failure and stage 1 through stage 4 chronic kidney disease, or unspecified chronic kidney disease - Chronic obstructive pulmonary disease, unspecified - Allergy status to narcotic agent - Personal history of nicotine dependence - Other residential (current) drug therapy - Displaced trimalleolar fracture of left lower leg, initial encounter for closed fracture - Allergy status to other drugs, medicaments and biological substances - Heart failure, unspecified - Allergy status to penicillin - lobsterman (current) use of insulin - Chronic kidney disease, stage 3 unspecified - Hyperlipidemia, unspecified 05/18/2020 09:37 [facility] [place] TYPE: Emergency [...] Chronic kidney disease, stage 3 unspecified - lobsterman (current) use of insulin - Allergy status to other antibiotic agents - Other residential (current) drug therapy - Personal history of nicotine dependence - Type 2 diabetes mellitus with diabetic autonomic (poly)neuropathy 11/06/2019 18:54 [facility] [place] TYPE: Emergency COMPLAINT: - DIZZINESS INPATIENT VISIT TRACKING (12 MO.) 07/12/2020 19:11 [facility] [place] TYPE: Cardiology DIAGNOSES: - Acquired absence of left foot - Other specified complication of vascular prosthetic devices, implants and grafts, subsequent encounter - Hyperkalemia - Hypo-osmolality and hyponatremia - Other specified complication of vascular prosthetic devices, implants and grafts, initial encounter - shelter (current) use of insulin - Type 2 diabetes mellitus with diabetic polyneuropathy - Anemia, unspecified - Obesity, unspecified - Other fracture of left lower leg, subsequent encounter for closed fracture with routine healing - Acute kidney failure, unspecified - Unspecified atherosclerosis of [place] arteries of extremities, left leg - Acute diastolic (congestive) heart failure - Essential (primary) hypertension - Osteomyelitis, unspecified - Acute respiratory failure with hypoxia 07/10/2020 05:14 [facility] [place] TYPE: Medical Surgical COMPLAINT: - HYPERKALEMIA/HALEIGH DIAGNOSES: - Anemia, unspecified - Bipolar disorder, unspecified - shelter (current) use of antithrombotics/antiplatelets - Unspecified chronic bronchitis - Atherosclerotic heart disease of [place] coronary artery without angina pectoris - Adverse effect of other systemic antibiotics, initial encounter - Hyperlipidemia, unspecified - lobsterman (current) use of opiate analgesic - Stricture of artery - Type 2 diabetes mellitus with diabetic chronic kidney disease - Obstructive sleep apnea (adult) (pediatric) - Other specified complication of vascular prosthetic devices, implants and grafts, initial encounter - Allergy status to other antibiotic agents - Adverse effect of other systemic antibiotics, initial encounter - Type 2 diabetes mellitus with diabetic chronic kidney disease - Other residential (current) drug therapy - Other osteomyelitis, ankle and foot - Unspecified chronic bronchitis - Displaced trimalleolar fracture of left lower leg, subsequent encounter for closed fracture with routine healing - Chronic diastolic (congestive) heart failure - Chronic kidney disease, stage 3 unspecified - Allergy status to penicillin - Other osteomyelitis, ankle and foot - Obstructive sleep apnea (adult) (pediatric) - Displaced trimalleolar fracture of left lower leg, subsequent encounter for closed fracture with routine healing - Type 2 diabetes mellitus with other specified complication - Other specified complication of vascular prosthetic devices, implants and grafts, initial encounter - Type 2 diabetes mellitus with diabetic polyneuropathy - Hyperkalemia - Type 2 diabetes mellitus with diabetic peripheral angiopathy without gangrene - Hypertensive heart and chronic kidney disease with heart failure and stage 1 through stage 4 chronic kidney disease, or unspecified chronic kidney disease - Type 2 diabetes mellitus with diabetic peripheral angiopathy without gangrene - Acute kidney failure, unspecified - Stricture of artery - Hyperlipidemia, unspecified - Allergy status to narcotic agent - Chronic diastolic (congestive) heart failure - Allergy status to narcotic agent - Nephropathy induced by other drugs, medicaments and biological substances - lobsterman (current) use of insulin - Nephropathy induced by other drugs, medicaments and biological substances - Bipolar disorder, unspecified - Personal history of nicotine dependence - Chronic kidney disease, stage 3 unspecified - lobsterman (current) use of opiate analgesic - 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 - Personal history of nicotine dependence - Anemia, unspecified - Atherosclerotic heart disease of [place] coronary artery without angina pectoris - Type 2 diabetes mellitus with diabetic polyneuropathy - shelter (current) use of insulin - Allergy status to other antibiotic agents - Hyperkalemia - Hypertensive heart and chronic kidney disease with heart failure and stage 1 through stage 4 chronic kidney disease, or unspecified chronic kidney disease - Type 2 diabetes mellitus with other specified complication - shelter (current) use of antithrombotics/antiplatelets - Allergy status to penicillin 05/19/2020 15:08 [facility] TYPE: Medical [...] unspecified - Allergy status to penicillin - shelter (current) use of antithrombotics/antiplatelets - Type 2 diabetes mellitus with diabetic chronic kidney disease - lobsterman (current) use of insulin - Gastroparesis - Acute kidney failure, unspecified - Gastroparesis - Hyperlipidemia, unspecified - Gangrene, not elsewhere classified - Unspecified Escherichia coli [E. 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 [place] TYPE: Medical Surgical COMPLAINT: - ACUTE KIDNEY INJURY DIAGNOSES: - lobsterman (current) use of inhaled steroids - Hypomagnesemia - Hypo-osmolality and hyponatremia - Allergy status to penicillin - Type 2 diabetes mellitus with diabetic neuropathy, unspecified - Other specified abnormal findings of blood chemistry - Acute kidney failure, unspecified - Other residential (current) drug therapy - lobsterman (current) use of insulin - Allergy status to narcotic agent - lobsterman (current) use of antithrombotics/antiplatelets - Atherosclerotic heart disease of [place] coronary artery without angina pectoris - Viral [...] Chronic kidney disease, stage 3 (moderate) - lobsterman (current) use of oral hypoglycemic drugs - Abnormal findings on diagnostic imaging of heart and coronary circulation - Acidosis - Type 2 diabetes mellitus with diabetic chronic kidney disease [email or web address]
== END 2020-09-23 21:35 | disposition home or self-care (01) ==
LOC: ED 18:10
DX: L98.9 Disorder of the skin and subcutaneous tissue, unspecified (principal); R60.0 Localized edema; E11.40 Type 2 diabetes mellitus with diabetic neuropathy, unspecified; J44.9 Chronic obstructive pulmonary disease, unspecified; I13.0 Hypertensive heart and chronic kidney disease with heart failure and stage 1 through stage 4 chronic kidney disease, or unspecified chronic kidney disease; E78.5 Hyperlipidemia, unspecified; I50.9 Heart failure, unspecified; N18.30 Chronic kidney disease, stage 3 unspecified; E11.22 Type 2 diabetes mellitus with diabetic chronic kidney disease; E11.43 Type 2 diabetes mellitus with diabetic autonomic (poly)neuropathy; K31.84 Gastroparesis; Z88.5 Allergy status to narcotic agent; Z88.8 Allergy status to other drugs, medicaments and biological substances; Z88.0 Allergy status to penicillin; Z88.2 Allergy status to sulfonamides; Z88.1 Allergy status to other antibiotic agents; Z79.899 Other long term (current) drug therapy; Z79.4 Long term (current) use of insulin; Z79.82 Long term (current) use of aspirin
CPT/HCPCS: 73630; 80053; 85025; 99283-25

== ENCOUNTER 2020-10-03 20:02 | Inpatient (IN) | payer OTHER ==
[~2020-10-03] VITALS: Ht 170.2 cm; Wt 125.9 kg
--- OUTSIDE RECORDS SUMMARY | 2020-10-03 20:04 | XMS ---
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 Care History Medical/Surgical 07/10/2020 [facility] - Patient is currently established with [facility]. If patient is seen in the ED during business hours. Please contact CHWs at [facility]. Care Recommendation: If this patient has had 5 or more Emergency Department visits in the last 12 months.\T\nbsp; Patient will require education on the scope and purpose of the ED as an acute care provider not a Primary Care Provider and should not be utilized for chronic conditions.\T\nbsp; These are guidelines and the provider should exercise clinical judgment when providing care. 06/06/2018 [facility] - PATIENT PCP HAS MADE A REFERRAL TO [facility]- PATIENT STARTS PULMONARY REHAB ON 06/20/18. E.D. VISIT COUNT (12 MO.) 9 [facility] H. TOTAL 9 NOTE: Visits indicate total known visits. ED/UCC VISIT TRACKING (12 MO.) 10/03/2020 20:03 [facility] TYPE: Emergency COMPLAINT: - DIFFICULTY BREATHING 09/23/2020 18:11 [facility] [place] TYPE: Emergency COMPLAINT: - LOWER LEG SKIN PROBLEM DIAGNOSES: - Disorder of the skin and subcutaneous tissue, unspecified - Type 2 diabetes mellitus with diabetic chronic kidney disease - Chronic kidney disease, stage 3 unspecified - Chronic obstructive pulmonary disease, unspecified - Hyperlipidemia, unspecified - Disorder of the skin and subcutaneous tissue, unspecified - terminal manager (current) use of insulin - Type 2 diabetes mellitus with diabetic neuropathy, unspecified - Allergy status to other antibiotic agents - Heart failure, unspecified - Allergy status to narcotic agent - Gastroparesis - Type 2 diabetes mellitus with diabetic autonomic (poly)neuropathy - Allergy status to sulfonamides - Allergy status to penicillin - Localized edema - Hypertensive heart and chronic kidney disease with heart failure and stage 1 through stage 4 chronic kidney disease, or unspecified chronic kidney disease - Other long wall shear operator (current) 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 therapy - [facility] (current) use of aspirin - Allergy status to other drugs, medicaments and biological substances 08/22/2020 16:57 [facility] [place] TYPE: Emergency COMPLAINT: - VOMITING DIAGNOSES: - Acute gastritis without bleeding - Type 2 diabetes mellitus with diabetic neuropathy, unspecified - Allergy status to sulfonamides - Allergy status to penicillin - terminal manager (current) use of aspirin - Chronic kidney disease, stage 3 unspecified - Allergy status to other antibiotic agents - Allergy status to other drugs, medicaments and biological substances - Gastroparesis - Hypertensive chronic kidney disease with stage 1 through stage 4 chronic kidney disease, or unspecified chronic kidney disease - Heart failure, unspecified - Other long wall shear operator (current) drug therapy - Chronic obstructive pulmonary disease, unspecified - Personal history of nicotine dependence - Nausea with vomiting, unspecified - Allergy status to narcotic agent - [facility]CI (current) use of insulin - Hyperlipidemia, unspecified [...] diabetes mellitus with diabetic autonomic (poly)neuropathy - terminal manager (current) use of insulin - Type 2 diabetes mellitus with diabetic neuropathy, unspecified - Hypertensive heart and chronic kidney disease with heart failure and stage 1 through stage 4 chronic kidney disease, or unspecified chronic kidney disease - Displaced trimalleolar fracture of left lower leg, initial encounter for closed fracture - Other long wall shear operator (current) drug therapy - Allergy status to [...] Personal history of nicotine dependence - Other long wall shear operator (current) drug therapy - Displaced trimalleolar fracture of left lower leg, initial encounter for closed fracture - Allergy status to other drugs, medicaments and biological substances - Heart failure, unspecified - Allergy status to penicillin - terminal manager (current) use of insulin - Chronic kidney [...] Chronic kidney disease, stage 3 unspecified - [facility]CI (current) use of insulin - Allergy status to other antibiotic agents - Other long wall shear operator (current) 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 [place] TYPE: Cardiology DIAGNOSES: - Acquired absence of left foot - Other specified complication of vascular prosthetic devices, implants and grafts, subsequent encounter - Hyperkalemia - Hypo-osmolality and hyponatremia - Other specified complication of vascular prosthetic devices, implants and grafts, initial encounter - [facility]CI (current) use of insulin - Type 2 diabetes mellitus with diabetic polyneuropathy - Anemia, unspecified - Obesity, unspecified - Other fracture of left lower leg, subsequent encounter for closed fracture with routine healing - Acute kidney failure, unspecified - Unspecified atherosclerosis of [place] arteries of extremities, left leg - Acute diastolic (congestive) heart failure - Essential (primary) hypertension - Osteomyelitis, unspecified - Acute respiratory failure with hypoxia 07/10/2020 05:14 [facility] [place] TYPE: Medical Surgical COMPLAINT: - HYPERKALEMIA/HALEIGH DIAGNOSES: - Anemia, unspecified - Bipolar disorder, unspecified - terminal manager (current) use of antithrombotics/antiplatelets - Unspecified chronic bronchitis - Atherosclerotic heart disease of [place] coronary artery without angina pectoris - Adverse effect of other systemic antibiotics, initial encounter - Hyperlipidemia, unspecified - [facility]CI (current) use of opiate analgesic - Stricture [...] with diabetic chronic kidney disease - Other long wall shear operator (current) drug therapy - Other osteomyelitis, ankle [...] other drugs, medicaments and biological substances - FCI (current) use of insulin - Nephropathy induced by other drugs, medicaments and biological substances - Bipolar disorder, unspecified - Personal history of nicotine dependence - Chronic kidney disease, stage 3 unspecified - [facility]CI (current) use of opiate analgesic - Other half-way (current) drug therapy - Personal history of nicotine dependence - Anemia, unspecified - Atherosclerotic heart disease of [place] coronary artery without angina pectoris - Type 2 diabetes mellitus with diabetic polyneuropathy - FCI (current) use of insulin - Allergy status to other antibiotic agents - Hyperkalemia - Hypertensive heart and chronic kidney disease with heart failure and stage 1 through stage 4 chronic kidney disease, or unspecified chronic kidney disease - Type 2 diabetes mellitus with other specified complication - FCI (current) use of antithrombotics/antiplatelets - Allergy status [...] unspecified - Allergy status to penicillin - terminal manager (current) use of antithrombotics/antiplatelets - Type 2 diabetes mellitus with diabetic chronic kidney disease - FCI (current) use of insulin - Gastroparesis - Acute kidney failure, unspecified - Gastroparesis - Hyperlipidemia, unspecified - Gangrene, not elsewhere classified - Unspecified Escherichia coli [E. coli] as the cause of diseases classified elsewhere - Chronic kidney disease, stage 3 unspecified - Other half-way (current) drug therapy - Chronic diastolic (congestive) [...] - Body mass index [BMI]40.0-44.9, adult - terminal manager (current) use of antithrombotics/antiplatelets - Type 2 [...] Allergy status to narcotic agent - Other half-way (current) drug therapy - Hypertensive heart and [...] diabetes mellitus with hypoglycemia without coma - terminal manager (current) use of insulin 11/06/2019 21:[address] [facility] TYPE: Medical Surgical COMPLAINT: - ACUTE KIDNEY INJURY DIAGNOSES: - terminal manager (current) use of inhaled steroids - Hypomagnesemia - Hypo-osmolality and hyponatremia - Allergy status to penicillin - Type 2 diabetes mellitus with diabetic neuropathy, unspecified - Other specified abnormal findings of blood chemistry - Acute kidney failure, unspecified - Other half-way (current) drug therapy - FCI (current) use of insulin - Allergy status to narcotic agent - [facility]CI (current) use of antithrombotics/antiplatelets - Atherosclerotic heart disease of [place] coronary artery without angina pectoris - Viral [...] Chronic kidney disease, stage 3 (moderate) - terminal manager (current) use of oral hypoglycemic drugs - Abnormal findings on diagnostic imaging of heart and coronary circulation - Acidosis - Type 2 diabetes mellitus with diabetic chronic kidney disease [email or web address]
--- NOTE | 2020-10-03 22:30 | NUR ---
TELEPHONE REPORT RECEIVED FROM ED HARDIK GAUTAM. QUESTIONS ANSWERED. HARDIK RANDOLPH TO RESUME CARE FOR pt UPON pt ARRIVAL TO [facility], REPORT GIVEN TO HARDIK RANDOLPH.
--- NOTE | 2020-10-04 | NUR ---
IN TO ASSIST RN WITH VITALS, SETTLING PT IN, HOSPITAL SOCKS IN PLACE, SIGNAGE IN PLACE
--- NOTE | 2020-10-04 01:00 | NUR ---
ASSESSMENT, VS AND I&O COMPLETED. GCS 15, A&O X4. LUNGS ARE CLEAR BUT DIMINISHED. HEART TONES DISTANT. ABD SOFT, NONTENDER, BOWEL TONES ACTIVE. CHRNONIC NUMBNESS AND TINGLING IN HANDS AND FEET. PULSES INTACT. BOTTOM OF FOOT HAS ULCER THAT SHE RECEIVED FOOT CARE FOR AT HOME, WNL, FOAM BANDAGE, PHOTOS IN CHART. LLE HAS 2+ EDEMA. RLE HAS 1+ EDEMA. IV WNL, CDI, FLUSHED WELL. PT HAS NO TOES ON LLE BUT PULSE INTACT. RIGHT FOOT PULSE INTACT. SNACKS PROVIDED. ICE WATER PROVIDED WITH FLUID RESTRICTION EDUCATION. NO OTHER NEEDS. CALL LIGHT IN REACH.
--- NOTE | 2020-10-04 02:45 | NUR ---
PT RESTING IN BED, WATCHING TV. NO NEEDS AT THIS TIME. CALL LIGHT IN REACH.
--- NOTE | 2020-10-04 04:15 | NUR ---
IN TO GET VITALS, PT UP TO VOID, DAILY WEIGHT TAKEN, NO FURTHER NEEDS AT THIS TIME, PT PROVIDED MORE PUDDING
--- NOTE | 2020-10-04 04:30 | NUR ---
ASSESSMENT, VS, I&O AND DW COMPLETED. LUNGS CLEAR BUT DIMINISHED. NUMBNESS AND TINGLING IN HANDS AND FEET, CHRONIC. 2+LLE EDEMA, TRENA, DRESSING CHANGED ON WOUND. 1+RLE EDEMA. PULSES INTACT. IV CDI. PT HAS AN OCCASSION COUGH WITH WHITE FROTHY OUTPUT. SNACKS PROVIDED. PT TOLERATING FLUID RESTRICTION WELL. NO OTHER NEEDS. CALL LIGHT IN REACH.
--- NOTE | 2020-10-04 07:21 | NUR ---
scheduled med provided. no other needs. call light in reach.
--- NOTE | 2020-10-04 08:20 | NUR ---
PT AWAKE IN ROOM SITTING ON EDGE OF BED. RN JL IN ROOM. PT REQUESTS A SHOWER LATER TODAY. WHITE BOARD UDPATED. CALL LIGHT WITHIN REACH. NO FURTHER NEEDS AT THIS TIME.
[2020-10-04] MEDS ORDERED: METOLAZONE5 MG PO (09:06)
[2020-10-04] MEDS ORDERED: METOCLOPRAMIDE10 MG PO (09:07)
[2020-10-04] MEDS ORDERED: LISINOPRIL10 MG PO (09:11)
[2020-10-04] MEDS ORDERED: FLUOXETINE HCL20 MG PO (09:12)
--- NOTE | 2020-10-04 14:08 | NUR ---
PT AWKAKE AND INDEPENDENT IN THE ROOM. CALL LIGHT WITHIN REACH. NO FURTHER NEEDS AT THIS TIME.
--- NOTE | 2020-10-04 14:36 | NUR ---
Patient reports she is feeling better today; alert and oriented x3 at this time. Patient showered this morning, tolerated well. Most recent vital signs are stable. Allyvn dressing to bottom of left foot replaced per pt request as old one saturated in the shower. Wound on bottom of left foot appears to be healiing well, almost closed-no notable drainage or smell. Patient has no needs. Personal supplies and call light within reach.
--- NOTE | 2020-10-04 15:46 | NUR ---
Patient sitting up at bedside watching tv, alert and oriented x3. Patient has no distress. No reports of pain or sob at this time. Patient reports she is feeling "much better" this afternoon. Patient has no needs at this time. Fresh water provided. Personal supplies and call light within reach.
--- NOTE | 2020-10-04 19:01 | EKG ---
[facility] [address] [place], [place] [address] Signed Normal sinus rhythm Incomplete left bundle branch block T wave abnormality, consider lateral ischemia Prolonged QT Abnormal ECG When compared with ECG of 10-JUL-2020 03:48, T wave amplitude has decreased in Anterior leads Confirmed by JOHN ARIZA MD ([id number]) on 10/04/2020 7:00:57 PM Electronically Signed By: JOHN ARIZA MD 10/04/201900 PATIENT NAME: LINH PEDRAZA Electrocardiogram DATE OF : 65 PHYSICIAN: JOHN ARIZA MD REPORT #: [id number] REPORT IS CONFIDENTIAL AND NOT TO BE RELEASED WITHOUT AUTHORIZATION
--- NOTE | 2020-10-04 19:33 | NUR ---
GIVEN SHIFT REPORT FROM HARDIK PARIKH. RT GIVING A NEB TREATMENT AT THIS TIME.
--- NOTE | 2020-10-04 21:30 | NUR ---
PATIENT SITTING ON HER BEDSIDE ON THE PHONE AND WATCHING TV. PATIENT HAS NO CURRENT CARE NEEDS. CALL LIGHT IN REACH.
--- NOTE | 2020-10-04 22:30 | NUR ---
PATIENT SITTING ON BEDSIDE ON HER PHONE. PATIENT DENIED ANY PAIN. EVENING MEDS GIVEN EXCEPT BOWEL PROTOCOL MEDS REFUSED. ICE WATER REFILLED AND 2 JEREMY PADS GIVEN THAT PATIENT HAD REQUESTED. EBER CHARGE NURSE CO-SIGNED INSULIN. PATIENT HAD NO OTHER NEEDS AT THIS TIME. CALL LIGHT IN REACH.
--- NOTE | 2020-10-05 00:30 | NUR ---
PATIENT RESTING QUIETLY ON HER LEFT SIDE, EYES CLOSED, RESPIRATIONS REGULAR AND EVEN, CALL LIGHT IN REACH.
--- NOTE | 2020-10-05 02:53 | NUR ---
PATIENT RESTING QUIIETLY ON HER LEFT SIDE, RESPIRATIONS REGULAR AND EVEN, CALL LIGHT IN REACH.
--- NOTE | 2020-10-05 05:25 | NUR ---
PATIENT SAYS SHE SLEPT WELL, VS WNL, LUNGS HAVE AN EXPIRATORY WHEEZE AND DEMINISHED THROUGHOUT. PATIENT HAS MAINTAINED HER FLUID RESTRICTION. PATIENT HAS NO CURRENT CARE NEEDS AND CALL LIGHT IS IN REACH.
--- NOTE | 2020-10-05 07:09 | NUR ---
ICE WATER PASSED THOUGH DOOR TO PT, NO FURTHER NEEDS AT THIS TIME
--- NOTE | 2020-10-05 07:44 | NUR ---
Patient resting with eyes closed, respirations even and non labored. No notable distress. Personal supplies and call light within reach.
[2020-10-05] MEDS ORDERED: MAPAP500 MG PO (09:00)
[2020-10-05] MEDS ORDERED: IODOSORB40 GM TOP (09:01)
[2020-10-05] MEDS ORDERED: TUMS200 MG PO (09:02)
[2020-10-05] MEDS ORDERED: NEURONTIN100 MG PO (09:02)
--- NOTE | 2020-10-05 13:46 | NUR ---
PATIENT SITTING ON EDGE OF BED TALKING ON PHONE. VITALS AND I&O'S CHARTED. CALL LIGHT IN REACH. NO FURTHER NEEDS AT THIS TIME,
--- NOTE | 2020-10-05 15:15 | NUR ---
ALL LOBES ARE DIMINISHED BUT CLEAR, NO OTHER NEW CONCERNS WERE NOTED. PT IS SITTING ON SIDE OF BED.
--- NOTE | 2020-10-05 17:37 | NUR ---
CARED FOR THIS PT ONLY SINCE ABOUT MID AFTERNOON. OVERALL PT SEEMED TO HAVE HAD A GOOD DAY. NO NEW CONCERNS HAVE BEEN NOTED.
--- NOTE | 2020-10-05 19:30 | NUR ---
PATIENT GETTING A NEB TREATMENT AT THIS TIME. PATIENT HAS NO CURRENT CARE NEEDS. CALL LIGHT IN REACH. HARDIK APPLE FINISHED SHIFT REPORT.
--- NOTE | 2020-10-05 20:15 | NUR ---
PATIENT SITTING IN BED WATCHING TV. HAS DRY COUGH, BUT DENIES SHORTNESS OF BREATH. RESPIRATIONS REGULAR AND EVEN. VS STABLE. ASSESSMENT COMPLETE. NEW ICE WATER GIVEN AND URINE IN THE BATHROOM WAS DUMPED. PATIENT HAS NO OTHER CARE NEEDS AT THIS TIME.
--- NOTE | 2020-10-05 22:22 | NUR ---
PATIENT WAS RESTING QUIETLY WITH EYES CLOSED UNTIL THIS RN CAME IN THE ROOM. URINE IN BATHROOM DUMPED, PM MEDS WERE GIVEN, INCLUDING SOME TYLENOL FOR LOW GRADE FEVER 100.2f EARLIER AND AT 100.4f AT THIS TIME. PATIENT NEEDED NO SLIDING SCALE INSULIN COVERAGE TONIGHT. NEW TISSUES AND PATIENT'S GARBAGE BAG GIVEN. NO OTHER CARE NEEDS AT THIS TIME, LIGHTS TURNED DOWN AT PATIENT'S REQUEST. CALL LIGHT IN REACH.
--- NOTE | 2020-10-05 23:16 | NUR ---
PATIENT RESTING QUIETLY, RESPIRATIONS REGULAR AND EVEN ON HER RIGHT SIDE, EYES CLOSED, CALL LIGHT IN REACH.
--- NOTE | 2020-10-06 01:01 | NUR ---
PATIENT IS REASTING ON HER RIGHT SIDE. RESPIRATIONS ARE REGULAR AND EVEN, EYES ARE CLOSED, AND CALL LIGHT IS IN REACH.
--- NOTE | 2020-10-06 03:45 | NUR ---
0328 PATIENT HAD A SEVERE COUGHING FIT AND WHEN COUGHING STOPPED PATIENT UNABLE TO GET SATS ABOVE 88% ON ROOM AIR LUNGS ARE TIGHT AND WHEEZY. RT WAS CALLED AND PRN NEB TREATMENT WAS GIVEN. PATIENT MOVING AIR BETTER NOW. RESPIRATIONS FROM 24 TO 20 NOW AND SATS IMPROVED TO 97% ON ROOM AIR. PATIENT, "FEELING MUCH BETTER." LIGHTS TURNED DOWN AND CALL LIGHT IN REACH.
--- NOTE | 2020-10-06 06:00 | NUR ---
PATIENT RETING QUIETLY AT THIS TIME ON HER RIGHT SIDE, EYES CLOSED, RESPIRATIONS REGULAR AND EVEN, CALL LIGHT IN REACH.
--- NOTE | 2020-10-06 07:06 | NUR ---
SHIFT REPORT TO HARDIK MUNIZ.
--- NOTE | 2020-10-06 08:53 | NUR ---
Patient awake, sitting up at bedside eating. Patient reports she slept well last night. No reports of pain. Cough improving this morning. No needs at this time. Personal supplies and call light within reach.
--- NOTE | 2020-10-06 10:00 | NUR ---
REceived a call from BARBI at [facility]. Pt on HH through their services. They are requesting documentation. H&P and clinical notes since admit faxed to [facility].
--- NOTE | 2020-10-06 10:36 | NUR ---
Tylenol 500mg po admin for low grade temp and coughing pain.
[2020-10-06] MEDS ORDERED: CARVEDILOL6.25 MG PO (12:29)
[2020-10-06] MEDS ORDERED: METOLAZONE5 MG PO (12:33)
[2020-10-06] MEDS ORDERED: CLOPIDOGREL75 MG PO (12:36)
--- NOTE | 2020-10-06 13:04 | NUR ---
PHONE CALL PLACED TO PATIENT ROOM DUE TO COVID PERCAUTIONS. CASE MANAGEMENT ASSESSMENT COMPLETED WITH PATIENT, PLEASE SEE OTHER DOCUMENTATION. PATIENT STATES SHE LIVES AT HOME WITH MULTIPLE OTHER FAMILY MEMBERS WHO ARE ABLE TO ASSIST HER WITH HOUSEHOLD TASKS, MEAL PREP, TRANSPORTATION ETC. PATIENT STATES SHE DOES RECV VISITS FROM [facility] TWICE PER WEEK FOR PT. PATIENT DOES HAVE A CANE AT HOME THAT SHE USES TO AMBULATE LONG DISTANCES. DEMOGRAPHIC INFORMATION UPDATED. PATIENT STATES SHE HAS BEEN DISCHARGED BY THE MD AT THIS TIME AND FEELS SAFE TO GO HOME. RENAY DIXON RN NOTIFIED.
--- NOTE | 2020-10-06 14:19 | NUR ---
Pt discharging to home today. Orders to resume HH and include PT/OT. DC summary, order, +Covid test faxed to [facility].
== END 2020-10-06 14:15 | disposition home health service (06) | DRG 291 ==
LOC: ED 20:02 → MS 21:52
PROVIDERS: ADMIT Internal Medicine; ATTEND Internal Medicine
PROC: 8E0ZXY6 Isolation (ICD-10-PCS; principal; 2020-10-03)
DX: I13.0 Hypertensive heart and chronic kidney disease with heart failure and stage 1 through stage 4 chronic kidney disease, or unspecified chronic kidney disease (principal); I50.33 Acute on chronic diastolic (congestive) heart failure; J12.82 Pneumonia due to coronavirus disease 2019; U07.1 COVID-19; N17.9 Acute kidney failure, unspecified; I25.10 Atherosclerotic heart disease of native coronary artery without angina pectoris; E11.51 Type 2 diabetes mellitus with diabetic peripheral angiopathy without gangrene; E11.40 Type 2 diabetes mellitus with diabetic neuropathy, unspecified; N18.30 Chronic kidney disease, stage 3 unspecified; G47.33 Obstructive sleep apnea (adult) (pediatric); J41.8 Mixed simple and mucopurulent chronic bronchitis; E11.65 Type 2 diabetes mellitus with hyperglycemia; E11.43 Type 2 diabetes mellitus with diabetic autonomic (poly)neuropathy; K31.84 Gastroparesis; F31.9 Bipolar disorder, unspecified; Z88.0 Allergy status to penicillin; Z88.2 Allergy status to sulfonamides; Z88.1 Allergy status to other antibiotic agents; Z88.5 Allergy status to narcotic agent; Z79.4 Long term (current) use of insulin; Z79.82 Long term (current) use of aspirin; Z79.899 Other long term (current) drug therapy
CPT/HCPCS: 71045; 80048; 80053; 83735; 84484; 85025; 93005; 93010; 94640; 94667; 94668; 96374; 99285-25; A9270; C9803; J1650; J1815; J1940; J2930; U0003

== ENCOUNTER 2020-11-09 20:13 | Inpatient (IN) | payer OTHER ==
[~2020-11-09] VITALS: Ht 170.2 cm; Wt 126.9 kg
[~2020-11-09 20:13] MED LIST changes: +CLOPIDOGREL75 MG PO; +CRESTOR40 MG PO; +IODOSORB40 GM TOP; +MAPAP500 MG PO; +METOCLOPRAMIDE H5 MG PO; +METOLAZONE5 MG PO; +NEURONTIN100 MG PO; -ROSUVASTATIN CA20 MG PO; +TUMS200 MG PO
--- OUTSIDE RECORDS SUMMARY | 2020-11-09 20:16 | XMS ---
PreManage Notification: LINH PEDRAZA Security Breast Surgeon Events No recent Security Events currently on file CRITERIA MET - 6 [facility] Months [facility] 05/01/2018-Current PHONE: [phone] Rossi Guajardo [employer] Counselor/Elevator Constructor Helper 05/12/2020-Current PHONE: [phone] JOHN ARIZA Internal Medicine 07/10/2020-Current PHONE: [phone] Isabela has no Care Guidelines for this patient. Care History Medical/Surgical 07/10/[address] [facility] - Patient is currently established with [facility]. If patient is seen in the ED during business hours. Please contact CHWs at [facility]. Care Recommendation: If this patient has had 5 or more Emergency Department visits in the last 12 months.\T\nbsp; Patient will require education on the scope and purpose of the ED as an acute care provider not a Primary Care Provider and should not be utilized for chronic conditions.\T\nbsp; These are guidelines and the provider should exercise clinical judgment when providing care. 06/06/[address] [facility] - PATIENT PCP HAS MADE A REFERRAL TO [facility]- PATIENT STARTS PULMONARY REHAB ON 06/20/18. E.DGeoff VISIT COUNT (12 MO.) 9 [facility]. TOTAL 9 NOTE: Visits indicate total known visits. ED/UCC VISIT TRACKING (12 MO.) 11/09/2020 20:14 [facility] [place] TYPE: Emergency COMPLAINT: - POSSIBLE INFECTION IN LT FOOT/UNCONTROLABLE BLADDE 10/03/2020 20:03 [facility] [place] TYPE: Emergency [...] the skin and subcutaneous tissue, unspecified - termination clerk (current) use of insulin - Type 2 [...] or unspecified chronic kidney disease - Other detention (current) drug therapy - senior living (current) use of aspirin - Allergy status to other drugs, medicaments and biological substances 08/22/2020 16:57 [facility] [place] TYPE: Emergency COMPLAINT: - VOMITING DIAGNOSES: - Acute gastritis without bleeding - Type 2 diabetes mellitus with diabetic neuropathy, unspecified - Allergy status to sulfonamides - Allergy status to penicillin - senior living (current) use of aspirin - Chronic kidney disease, stage 3 unspecified - Allergy status to other antibiotic agents - Allergy status to other drugs, medicaments and biological substances - Gastroparesis - Hypertensive chronic kidney disease with stage 1 through stage 4 chronic kidney disease, or unspecified chronic kidney disease - Heart failure, unspecified - Other detention (current) drug therapy - Chronic obstructive pulmonary disease, unspecified - Personal history of nicotine dependence - Nausea with vomiting, unspecified - Allergy status to narcotic agent - termination clerk (current) use of insulin - Hyperlipidemia, unspecified [...] diabetes mellitus with diabetic autonomic (poly)neuropathy - termination clerk (current) use of insulin - Type 2 diabetes mellitus with diabetic neuropathy, unspecified - Hypertensive heart and chronic kidney disease with heart failure and stage 1 through stage 4 chronic kidney disease, or unspecified chronic kidney disease - Displaced trimalleolar fracture of left lower leg, initial encounter for closed fracture - 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 [place] TYPE: Medical Surgical COMPLAINT: - DECOMPENSATED CHF DIAGNOSES: - Allergy status to sulfonamides - Acute kidney failure, unspecified - Chronic kidney disease, stage 3 unspecified - Other detention (current) drug therapy - COVID-19 - Type 2 diabetes mellitus with diabetic peripheral angiopathy without gangrene - Acute kidney failure, unspecified - Bipolar disorder, unspecified - Type 2 diabetes mellitus with diabetic peripheral angiopathy without gangrene - termination clerk (current) use of aspirin - Acute on chronic diastolic (congestive) heart failure - Allergy status to penicillin - senior living (current) use of insulin - Allergy status to other antibiotic agents - Gastroparesis - termination clerk (current) use of insulin - Acute on chronic diastolic (congestive) heart failure - COVID-19 - 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 - Obstructive sleep apnea (adult) (pediatric) - Mixed simple and mucopurulent chronic bronchitis - Atherosclerotic heart disease of [place] coronary artery without angina pectoris - Hypertensive heart and chronic kidney disease with heart failure and stage 1 through stage 4 chronic kidney disease, or unspecified chronic kidney disease - Allergy status to sulfonamides - Mixed simple and mucopurulent chronic bronchitis - Type 2 diabetes mellitus with hyperglycemia - Gastroparesis - Allergy status to narcotic agent - Allergy status to narcotic agent - Type 2 diabetes mellitus with hyperglycemia - Type 2 diabetes mellitus with diabetic neuropathy, unspecified - Atherosclerotic heart disease of [place] coronary artery without angina pectoris - Type 2 diabetes mellitus with diabetic autonomic (poly)neuropathy - Hypertensive heart and chronic kidney disease with heart failure and stage 1 through stage 4 chronic kidney disease, or unspecified chronic kidney disease - Chronic diastolic (congestive) heart failure - Type 2 diabetes mellitus with diabetic neuropathy, unspecified - Allergy status to penicillin - Bipolar disorder, unspecified - Type 2 diabetes mellitus with diabetic autonomic (poly)neuropathy - termination clerk (current) use of aspirin - Obstructive sleep apnea (adult) (pediatric) - Chronic kidney disease, stage 3 unspecified - Allergy status to other antibiotic agents [facility] [place] [facility]iology DIAGNOSES: - Acquired absence of left foot - Other specified complication of vascular prosthetic devices, implants and grafts, subsequent encounter - Hyperkalemia - Hypo-osmolality and hyponatremia - Other specified complication of vascular prosthetic devices, implants and grafts, initial encounter - senior living (current) use of insulin - Type 2 diabetes mellitus with diabetic polyneuropathy - Anemia, unspecified - Obesity, unspecified - Other fracture of left lower leg, subsequent encounter for closed fracture with routine healing - Acute kidney failure, unspecified - Unspecified atherosclerosis of [place] arteries of extremities, left leg - Acute diastolic (congestive) heart failure - Essential (primary) hypertension - Osteomyelitis, unspecified - Acute respiratory failure with hypoxia 07/10/2020 05:14 [facility] [place] TYPE: Medical Surgical COMPLAINT: - HYPERKALEMIA/HALEIGH DIAGNOSES: - Anemia, unspecified - Bipolar disorder, unspecified - senior living (current) use of antithrombotics/antiplatelets - Unspecified chronic bronchitis - Atherosclerotic heart disease of [place] coronary artery without angina pectoris - Adverse effect of other systemic antibiotics, initial encounter - Hyperlipidemia, unspecified - senior living (current) use of opiate analgesic - Stricture [...] with diabetic chronic kidney disease - Other detention (current) drug therapy - Other osteomyelitis, ankle [...] other drugs, medicaments and biological substances - termination clerk (current) use of insulin - Nephropathy induced by other drugs, medicaments and biological substances - Bipolar disorder, unspecified - Personal history of nicotine dependence - Chronic kidney disease, stage 3 unspecified - senior living (current) use of opiate analgesic - Other detention (current) drug therapy - Personal history of nicotine dependence - Anemia, unspecified - Atherosclerotic heart disease of [place] coronary artery without angina pectoris - Type 2 diabetes mellitus with diabetic polyneuropathy - termination clerk (current) use of insulin - Allergy status to other antibiotic agents - Hyperkalemia - Hypertensive heart and chronic kidney disease with heart failure and stage 1 through stage 4 chronic kidney disease, or unspecified chronic kidney disease - Type 2 diabetes mellitus with other specified complication - senior living (current) use of antithrombotics/antiplatelets - Allergy status [...] unspecified - Allergy status to penicillin - termination clerk (current) use of antithrombotics/antiplatelets - Type 2 diabetes mellitus with diabetic chronic kidney disease - senior living (current) use of insulin - Gastroparesis - Acute kidney failure, unspecified - Gastroparesis - Hyperlipidemia, unspecified - Gangrene, not elsewhere classified - Unspecified Escherichia coli [E. coli] as the cause of diseases classified elsewhere - Chronic kidney disease, stage 3 unspecified - Other detention (current) drug therapy - Chronic diastolic (congestive) [...] - Body mass index [BMI]40.0-44.9, adult - termination clerk (current) use of antithrombotics/antiplatelets - Type 2 [...] Allergy status to narcotic agent - Other detention (current) drug therapy - Hypertensive heart and [...] diabetes mellitus with hypoglycemia without coma - termination clerk (current) use of insulin [email or web address]
[2020-11-09] MEDS ORDERED: DOXYCYCLINE MO100 MG PO (22:44)
--- NOTE | 2020-11-10 00:42 | NUR ---
PHONE REPORT RECEIVED FROM ER, SPOKE WITH ALICIA DYE.
--- NOTE | 2020-11-10 01:00 | NUR ---
PT ADMITTED TO ROOM 113 FROM ED, VIA STRETCHER. ABLE TO GET SELF OVER TO BED, SOB WITH EXERTION. STATES HER URINE COMES OUT "BEFORE I KNOW IT", STARTED RECENTLY. DOESN'T KNOW THE TIME SHE TAKES HER MEDICATON, HAS A CAREGIVER WHO ASSISTS.
--- NOTE | 2020-11-10 02:00 | NUR ---
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 PATIENT STAESE SHE USES A NEBULIZER AT HOME. RT GAVE PATIENT A PRN NEB TREATMENT.
--- NOTE | 2020-11-10 02:11 | NUR ---
PATIENT IS SNORING AT THIS TIME. IN BED WITH RAILS UP AND BED ALARM ON. CALL LIGHT IN REACH.
--- NOTE | 2020-11-10 04:00 | NUR ---
BED ALARMING. PATIENT NEEDS TO USE THE COMMODE.PATIENT ALREADY WET THE BED. PATIENT VOIDED 300 ML IN THE COMMODE. CHANGED BED LINEN. PATIENT IS BACK IN BED. BED ALARM ON FOR SAFETY.
--- NOTE | 2020-11-10 04:20 | NUR ---
PATIENT NEEDED TO VOID, HAD SOME INCONTINENCE PER ELECTRIC MOTOR TESTER SINTA BUT WAS ABLE TO STAND WITH MINIALM ASSISTANCE AND PIVOT TO BEDISDE COMMODE AND VOID REST OF URINE. HER GUAZE TO HER WOUND ON LEFT FOOT IS SATURATED, THIS CHANGED.
--- NOTE | 2020-11-10 05:11 | NUR ---
IN ROOM TO CHECK ON PATIENT. SHE IS ASLEEP LAYING ON HER LEFT SIDE, IS SNORING VERY LOUD. SHE WAKES UP EASILY TO VOICE, BUT FALLS BACK ASLEEP EASLIY WHILE BEING TALKED TO. THIS RN OBTAINED VITAL SIGNS. WOUND TO PLANTAR ASPECT OF LEFT FOOT CHECKED, DRY GUAZE IS NOT SATURATED AT THIS TIME. PATIENT IS KEEP THIS LEG ELEVATED ON PILLOW. SKIN TO LEFT LOWER LEG REMAINS RED SWOLLEN AND HOT TO TOUCH. PEDAL PULSE IS PALPABLE BUT WEAK.
--- NOTE | 2020-11-10 06:00 | NUR ---
PT UTLIZES CALL LIGHT, REQUESTS TO GET UP TO BSC. 1PA. PT REQUESTS TO SIT AT EDGE OF BED. BED ALARM ACTIVEATED. CALL LIGHT IN REACH. PERSONAL CARE ITEMS IN REACH. PT DENIES FURTHER NEEDS AT THIS TIME.
--- NOTE | 2020-11-10 06:12 | NUR ---
PATIENT WAS ADMITTED FROM ER EARLIER THIS MORNING FOR AN INFECTED LEFT FOOT/LEG, RELATED TO DIABETIC ULCER ON BOTTOM OF FOOT, DRAINING PURULENT, DRY GUAZE COVERING SITE FOR NOW, PODIATRY TO CONSULT THIS MORNING. PATIENT HAS PARTIAL LEFT FOOT AMPUTATION USES CANE. HAD PRN NEB TREATMENT FOR HER COPD.
--- NOTE | 2020-11-10 07:05 | NUR ---
BEDSIDE REPORT RECEIVED FROM OFFGOING RNJL. PT DENIES NEEDS AT THIS TIME. CALL LIGHT IN REACH.
--- NOTE | 2020-11-10 07:55 | NUR ---
PATIENT WAS SLEEPING, UPDATED BOARD, WILL CHECK BACK IN AN HOUR
--- NOTE | 2020-11-10 07:56 | NUR ---
DID PATIENTS BLOOD SUGAR, REPORTED TO NURSE, PATIENT ORDERED BREAKFAST, NOTHING ELSE TO REPORT AT THIS TIME
--- NOTE | 2020-11-10 08:55 | NUR ---
CALL TO DR. ALEXANDRE'S OFFICE TO LET HIM KNOW HE WAS TO CONSULT ON PATIENT.
--- NOTE | 2020-11-10 09:30 | NUR ---
Patient assisted to chair for breakfast. LLE elevated on pillow. Dressing to left foot has small amount of purulant drainage noted. Good pedal pulse, cap refill brian than three seconds to [facility]. No needs at this time. Personal supplies and call light within reach.
--- NOTE | 2020-11-10 09:55 | NUR ---
I rounded on Maria D this morning. When I opened the door she did great me and welcome me into the room. I introduced myself and asked Maria D how her care had been since her admission to the hospital. Maria D stated that her care was excellent. As I began to discuss her care, and care plan further Maria D exhibited signs of sleepiness as evidenced by leaning back in her chair and closing her eyes, resp. even and unlabored. No distress noted. I opted to leave the room at this time and will attempt to round again at another time that is more optimal for Maria D.
--- NOTE | 2020-11-10 13:16 | NUR ---
PATIENT WAS IN CHAIR AND WAS READY TO BE MOVED TO BED,PATIENTS VITAL SIGNS WERE DONE AND CHARTED IN ROOM, PATIENT GOT A REFILL ON WATER AND NO OTHER THINGS WERE NEEDED AT THIS TIME
--- NOTE | 2020-11-10 14:36 | NUR ---
aDMIN TYLENOL 650MG PO FOR REPORTS OF 6/10 LLE PAIN.
--- NOTE | 2020-11-10 15:00 | NUR ---
Left foot dressing saturated with purulent foul smelling drainage. New dry dressing placed to catch drainage.
--- NOTE | 2020-11-10 17:23 | NUR ---
PATIENTS BLOOD SUGAR WAS DONE, PATIENT USED THE BSC, PATIENT IS UP AT BEDSIDE EATING HER DINNER, THE VAL WAS SATURATED WITH BROWNISH YELLOW DRAINAGE VAL WAS CHANGED NOTHING ELSE TO REPORT AT THIS TIME
--- NOTE | 2020-11-10 18:13 | NUR ---
PATIENT SITTING UP IN BED WATCHING TV. VITALS AND I&O'S CHARTED. CALL LIGHT IN REACH. NO FURTHER NEEDS AT THIS TIME.
--- NOTE | 2020-11-10 19:00 | NUR ---
BEDSIDE REPORT RECEIVED FROM OFFGOING RNJL. PT DECLINES NEEDS. CALL LIGHT IN REACH.
--- NOTE | 2020-11-10 19:17 | NUR ---
patient was asking to use the restroom, this sound effects person noticed her getting pretty winded with the activity, checked oxygen it was 87, this was reported to the nurse, patients leg with the wound is very red, much more red than it was this morning, this was also reported to the nurse
--- NOTE | 2020-11-10 21:20 | NUR ---
PER DR HAHN, FAXED FACE SHEET TO [facility] @ [phone], WELL COPY OF XRAY REPORTS TO [phone].
--- NOTE | 2020-11-10 21:41 | NUR ---
HYPOID GEAR TESTER TO ROOM WHILE ETIQUETTE TEACHER CHANGED L FOOT DRESSING. DRESSING WITH IODAFORM GAUZE, 4X4, ABD, KERLEX, COBAN. PER MD, REMOVE PACKING IN 24 HOURS AND CHANGE DRESSING DAILY. PT TOLERATED DRESSING CHANGE WELL, AFTER DRESSING CHANGE REQUESTS PRN PAIN MEDCIATION.ADMINISTERED. HOSPITALIST TO ROOM TO UPDATE POC. PT STATES UNDERSTANDING DENIES FURTHER QUESTIONS AT THIS TIME. PT ASSESSMENT COMPLETE. PT DENIES SOB OR NAUSEA. LUNG SOUNDS WITH EXPIRATORY WHEEZE THROUHGOUT. OCCASIONAL NONPRODUCTIVE COUGH PRESENT DURING ASSESSMENT. PT DENIES ABD PAIN OR TENDERNESS. LLE HOT AND RED. RLE WITH REDNESS, NO WARMTH NOTED TO SKIN. PEDAL PULSES PRESENT TO RLE. PT REPORTS CHRONIC NUMBNESS AND TINGLING. IV SITE FLUSHED X2. GOOD BLOOD RETURN NOTED TO R AC IV SITE. ABX INITIATED ORDERED. PT UP TO COMMODE AND BACK TO BED WITH 1 PA. ATTENDS FOR INCONTINCE. PT ICE WATER REFILLED. PT DENIES FURTHER NEEDS AT THIS TIME. CALL LIGHT IN REACH.
--- NOTE | 2020-11-10 22:00 | NUR ---
PT RESTING IN BED WITH EYES CLOSED. SNORING AUDIBLY. DOES NOT WAKE WHILE BEVERAGE SPECIALIST PLACES BLANKET OVER PT. CALL LIGHT IN PT REACH.
--- NOTE | 2020-11-10 23:53 | NUR ---
PT UTILIZES CALL LIGHT FOR IV PUMP ALARMING. PT WOULD LIKE TO SIT UP AT EDGE OF BED. DENIES FURTHER NEEDS. CALL LIGHT IN REACH.
--- NOTE | 2020-11-11 00:10 | NUR ---
SBA TO THE BEDSIDE COMMODE. PATIENT IS STATED SHE WILL BE SITTING AT THE EDGE OF THE BED FOR A LITTLE BIT. CALL LIGHT WITHIN REACH.
--- NOTE | 2020-11-11 01:57 | NUR ---
PT UTLIZES CALL LIGHT FOR IV ALARMING. PT ASSESSMENT COMPLETE. PT DENIES PAIN, NAUSEA, OR SOB. DRESSING TO LLE C/D/I. REDNESS PRESENT TO BLE'S. IVF INFUSING ORDERED. PT DENIES FURTHER NEEDS. CALL LIGHT IN REACH.
--- NOTE | 2020-11-11 02:31 | NUR ---
PATIENT CALLED TO USE THE COMMODE. SBA. PATIENT IS BACK IN BED. DENIES FURTHER NEEDS AT THIS TIME.
--- NOTE | 2020-11-11 04:00 | NUR ---
SDC TEACHER TO ROOM FOR IV ALARMING. PT SITTING UP AT EDGE OF BED. DENIES PAIN, NAUSEA, OR SOB. ICE WATER REFILLED. PT DENIES NEEDS AT THIS TIME. CALL LIGHT IN REACH.
--- NOTE | 2020-11-11 06:05 | NUR ---
PT SITTING UP AT EDGE OF BED ON VIDEO CALL WITH FRIEND. PT TEARFUL, DISCUSSING CURRENT ILLNESS. PT DENIES NEEDS AT THIS TIME. CALL LIGHT IN REACH.
--- NOTE | 2020-11-11 06:39 | NUR ---
SBA PATIENT UP TO BEDSIDE COMMODE. PATIENT IS BACK IN BED. ICE WATER REFILLED.
--- NOTE | 2020-11-11 07:48 | NUR ---
PT WAS AWAKE IN BED. WHITEBOARD WAS UPDATED. THIS ELECTRIC BLANKET WIRER OFFERED PT A WARM WASHCLOTHE FOR FACE. PT DECLINED. CALL LIGHT IS WITHIN REACH. NO FURTHER NEEDS AT THIS TIME.
--- NOTE | 2020-11-11 08:10 | NUR ---
Admin tylenol 650mg po for reports of 6/10 LLE pain.
--- NOTE | 2020-11-11 09:21 | NUR ---
THIS PROCESS COACH HELPED PT TO THE BEDSIDE COMMODE. IN THE PROCESS, PT LOSS BALANCE AND THIS PROCESS COACH WAS ABLE TO SAFETLY GET PT TO THE BED BEFORE PT FELL. ONCE PT WAS READY, THIS PROCESS COACH HELPED PT BACK ONTO THE COMMODE. ONCE PT WAS FINISHED, THIS PROCESS COACH HELPED PT TRANSFER TO THE RECLINER. PT IS NOW ON THE PHONE WITH CALLIGHT WITHIN REACH. BREAKFAST TRAY WAS TAKEN. NO FURTHER NEEDS AT THIS TIME. HARDIK PARIKH WAS NOTIFIED.
[2020-11-11] MEDS ORDERED: CEFEPIME HCL1 GM IV (09:59)
[2020-11-11] MEDS ORDERED: METRONIDAZ500 MG/100 IV (10:00)
[2020-11-11] MEDS ORDERED: SEMGLEE100 UNIT/1 SUB-Q (10:03)
[2020-11-11] MEDS ORDERED: PANTOPRAZOLE SO40 MG PO (10:03)
--- NOTE | 2020-11-11 10:14 | NUR ---
this channel lip stiffener insoles took pt's vitals. this channel lip stiffener insoles noticed the pts nasal cannula was unhooked from the wall with 2L blowing out. pt's O2 was 96. this channel lip stiffener insoles notified libby maher and hooked the tubing back onto the oxygen.
[2020-11-11] MEDS ORDERED: CONSTULOSE10 GM/15 M PO (10:39)
[2020-11-11] MEDS ORDERED: PROMETHAZINE HC25 M1 PO (10:39)
[2020-11-11] MEDS ORDERED: ZESTRIL40 MG PO (10:40)
--- NOTE | 2020-11-11 11:29 | NUR ---
THIS BASKET BRAIDER HELP PT WITH A BEDBATH WHILE IN THE RECLINER. PT WAS ABLE TO STAND UP, AND WIPE SELF. THIS BASKET BRAIDER HELP PT WIPE DOWN WITH BATH WIPES. THE BASKET BRAIDER PROVIDED PT WITH A NEW ATTENDS, NEW SOCK, AND NEW GOWN. THIS BASKET BRAIDER BRUSHED PT'S HAIR AND PUT IT UP IN A PONYTAIL. THIS BASKET BRAIDER REFILLED PT'S WATER. CALL LIGHT IS WITHIN REACH. NO FURTHER NEEDS AT THIS TIME.
--- NOTE | 2020-11-11 11:45 | NUR ---
DISCUSSED WITH PATIENT ABOUT DISCHARGE PLAN. THE PATIENT DOES NOT HAVE ANY CONCERNS AT THIS TIME. PATIENT DOES NOT FEEL LIKE SHE NEEDS ANY ASSISTIVE DEVICES. WAS PRESENT DURING THIS CONVERSTATION AND HAD NO QUESTIONS. CASE MANGEMENT WILL CONTINUE TO FOLLOW.
--- NOTE | 2020-11-11 12:28 | NUR ---
Patient sitting up in chair eating lunch, no distress. Pt reports improved LLE pain. Fresh water at bedside. Encouraged patient to elevated LLE after she is done eating, pt receptive to this. Patient denies needs at this time. Personal supplies and call light within reach.
--- NOTE | 2020-11-11 13:15 | NUR ---
CALLED [facility] TO GET AN UPDATE ON TRANSFER. THEY DO NOT HAVE BED SPACE AT EITHER HOSPITAL. I SENT THEM THE DEMOGRAPHICS TO [phone]. THEY WILL BE IN TOUCH WHEN A BED IS AVAILABLE
[2020-11-11] MEDS ORDERED: MELATIN3 MG PO (13:43)
[2020-11-11] MEDS ORDERED: IPRAT-ALBUT 0.5-3 ML INH (13:43)
--- NOTE | 2020-11-11 13:47 | NUR ---
MED REC COMPLETE
--- NOTE | 2020-11-11 14:12 | NUR ---
Patient sleeping, eyes closed, respirations even and non labored. Patient remains on 1L oxygen per nc, no respiratory distress noted. LLE elevated at this time, dressing to left foot remains CDI. Lower extremities are swollen and red, left much more warm to touch vs right lower ext. No needs at this time. Call light within reach.
--- NOTE | 2020-11-11 14:29 | NUR ---
Tylenol 625mg po admin for reports of 6/10 LLE pain.
--- NOTE | 2020-11-11 18:55 | NUR ---
Left foot wound dressing changed per provider order. Packing removed from wound. Wound bed flushed with 15cc of ns, then covered with damp gauze pad, then abd, then kerlix and coban. Moderate amount of foul smelling purulant wound drainage noted. Pt reports LLE is painful. Tylenol in use for pain.
--- NOTE | 2020-11-11 19:30 | NUR ---
REPORT RECEIVED FROM HARDIK PARIKH. pt RESTING IN BED AWAKE. 1 L OXYGEN BY NC IN PLACE. pt COMPLAINS OF 7/10 PAIN IN LEFT LEG, LEG ELEVATED ON PILLOW. MD NOTIFIED OF PAIN, TO PLACE ORDER.
--- NOTE | 2020-11-11 20:25 | NUR ---
ASSISTED PRIMARY RN JEANIE. V/S AND I&O'S DONE. BLOOD SUGAR CHECK DONE AND DOCUMENTED.
--- NOTE | 2020-11-11 20:35 | NUR ---
pt SLEEPING, AWAKENS WHEN RN ENTERS ROOM. CONTINUES TO COMPLAIN OF PAIN IN LEFT FOOT, LEG. PRN TYLENOL ADMINISTERED FOR PAIN. LEFT LEG ELEVATED ON PILLOW. NUMBNESS AND TINGLING BILATERALLY LOWER EXTREMITIES. LEFT LEG RED, WARM TO TOUCH. 2+ PITTING EDEMA BLE. IV SITES FLUSHED WNL. IV ANTIBIOTIC INFUSING. 1 L OXYGEN BY NC IN PLACE. 1PA WITH FWW TO BSC FOR VOID, URGENCY, INCONTINENCE IN ATTENDS. ATTENDS CHANGED. pt BACK IN BED. SALESPERSON HANDBAGS IN ROOM.
--- NOTE | 2020-11-11 22:01 | NUR ---
PHONE CALL TO AIRCRAFT [employer] SPECIALIST PHARMACIST TO REPORT VANCO TROUGH 20.8. PHARMACIST BILL TO RETURN CALL WITH DOSING INSTRUCTIONS.
--- NOTE | 2020-11-11 23:05 | NUR ---
PT IV ALARMING. FLUSHED, NOW INFUSING. ON PHONE TO HER "COUSIN" Keren, WANTS HIM TO BE ABLE TO HAVE INFORMATION IF HE CALLS. NOTE PLACED HERE, WELL ON HER CHART.
--- NOTE | 2020-11-11 23:15 | NUR ---
PATIENT CALLED TO USE THE COMMODE SBA. CHANGED INCONTINENT PULL UPS. PATIENT IS BACK IN BED. ICE WATER REFILLED. NO FURTHER NEEDS AT THIS TIME.
--- NOTE | 2020-11-11 23:17 | NUR ---
CHECKED ON pt. SITTING UP AT SIDE OF BED LOOKING AT PHONE. 1L OXYGEN BY NC IN PLACE. NO REQUESTS AT THIS TIME.
--- NOTE | 2020-11-12 00:40 | NUR ---
CALL LIGHT ANSWERED. IV PUMP ALARMING, IV ANTIBIOTIC COMPLETE. pt DROWSY, CLOSING EYES AT THIS TIME. CALL LIGHT IN REACH.
--- NOTE | 2020-11-12 01:45 | NUR ---
CALL LIGHT ANSWERED. 1PA WITH FWW TO BSC FOR VOID, INCONTINENCE IN ATTENDS, URGENCY. pt RATES PAIN 6/10 IN LEFT FOOT. STATES "TYLENOL DOESN'T DO MUCH". ICE PACK APPLIED TO LEFT ANKLE. LEFT LEG ELEVATED ON PILLOW. ASSESSMENT COMPLETE. IV ANTIOBIOTIC INFUSING WNL. ICE WATER PROVIDED. CALL LIGHT IN REACH.
--- NOTE | 2020-11-12 03:18 | NUR ---
PHONE CALL TO TELEPHARMACY TO VERIFY VANCOMYCIN ORDER, 1.5 GM. ORDER VERIFIED. FAX COPY PLACED ON CHART. NETWORK CONTROL OPERATORS SUPERVISOR ANTIBIOTIC.
--- NOTE | 2020-11-12 03:20 | NUR ---
PATIENT CALLED TO USE THE BEDSIDE COMMODE. PATIENT IS BACK IN BED. DENIES FURTHER NEEDS.
--- NOTE | 2020-11-12 03:39 | NUR ---
CALL LIGHT ANSWERED, IV PUMP ALARMING, IV ANTIBIOTIC NOW INFUSING WNL. IV VANCO INFUSING SECOND IV SITE WNL. EDUCATION PROVIDED. PILLOW UNDER RIGHT ARM FOR COMFORT. LEFT LEG ELEVATED. CALL LIGHT IN REACH.
--- NOTE | 2020-11-12 04:46 | NUR ---
CALL LIGHT ANSWERED, IV SITE LEAKING. IV IN RIGHT AC D/C'D WNL. NEW IV STARTED LEFT WRIST. IV VANCO INFUSING ORDERED. pt C/O 09/20 PAIN IN LEFT FOOT. HOT TO TOUCH LLE. PRN TYLENOL ADMINISTERED. LEFT LEG ELEVATED. ICE WATER PROVIDED. VSS. CALL LIGHT IN REACH.
--- NOTE | 2020-11-12 05:21 | NUR ---
CALL LIGHT ANSWERED. 1PA TO BSC FOR VOID AND BACK TO BED. ATTENDS DRY. 1L OXYGEN BY NC IN PLACE. pt WITH LABORED BREATHING AFTER TRANSFER BACK TO BED. CALL LIGHT IN REACH.
--- NOTE | 2020-11-12 07:19 | NUR ---
Shift report recieved from HARDIK Bob, pt resting safely in bed w/ call light in reach and eyes closed, RR even and unlabored.
--- NOTE | 2020-11-12 07:45 | NUR ---
PT WAS SITTING UP ON THE SIDE OF THE BED FOR BREAKFAST. PT WAS GIVEN A WARM WASHCLOTH FOR THIER FACE. WHITEBOARD WAS UPDATED. PT'S WATER WAS FILLED. CALL LIGHT IS WITH REACH. NO FURTHER NEEDS AT THIS TIME.
--- NOTE | 2020-11-12 08:29 | NUR ---
PT SITTING UP ON SIDE OF BED EATING BREAKFAST. PT DENIES ANY PAIN OR NAUSEA AT THIS TIME. MORNING ASSESMENT COMPLETED, SCHEDULED MEDS GIVEN AND IV FLUIDS AND IV ABX INFUSING PER PROVIDER ORDERS. PT DENIES ANY OTHER NEEDS AT THIS TIME, CALL LIGHT W/ IN REACH.
--- NOTE | 2020-11-12 10:15 | NUR ---
Attempted to see pt. She is sleeping and not awakened. Per [address] Masters, pt still awaiting placement at [facility] or [facility] in [place].
--- NOTE | 2020-11-12 10:30 | NUR ---
Pt resting in bed w/ call light in reach, 2nd bag of IV Flagyl hung and infusing per provider order, pt denies any needs at this time.
--- NOTE | 2020-11-12 12:00 | NUR ---
Pt sitting up in chair w/ call light in reach. Lunch tray delivered, pt's CBG checked and sliding scale insulin given per provider order.
--- NOTE | 2020-11-12 13:00 | NUR ---
Pt sitting up in chair watching tv, call light in reach. conduit bender Yani double checked 1st unit of blood w/ this RN. Pre administration VSS on 1L via NC. VS remain stable after initial first 15 minuties of blood administration. Pt denies and s/sx of an adverse reaction. Blood now infusing per provider order.
--- NOTE | 2020-11-12 13:35 | NUR ---
Pt called for assistance w/ transfering back to bed. SBA, stand and pivot, pt now resting safely in bed w/ call light in reach. IV fluids and blood infusing per provider order, pt denies any other needs at this time.
--- NOTE | 2020-11-12 14:30 | NUR ---
Pt is resting in bed safely w/ call light in reach. IV fluids infusing per provider order. 1st unit of blood finishing infusing, will start 2nd unit upon completion.
--- NOTE | 2020-11-12 16:10 | NUR ---
1ST BAG OF BLOOD INFUSION COMPLETE. VSS ON RA AND PT DENIES ANY S/SX OF AN ADVERSE REACTION. 2ND BAG OF BLOOD RECEIVED FROM LAB BY AIRCRAFT STEEL FABRICATOR ANGELITA, WHO DOUBLE CHECKED W/ THIS NURSE. PRE ADMIN VSS ON RA, INITIAL 15 MINUTES OF BLOOD ADMINISTERED, VS REMAIN STABLE ON RA. 2ND BAG NOW INFUSING PER PROVIDER ORDER. PT C/O 7/10 PAIN IN L FOOT/ANKLE, PRN TYLENOL GIVEN PER PT REQUEST/PROVIDER ORDER. PT DENIES ANY OTHER NEEDS AT THIS TIME.
--- NOTE | 2020-11-12 18:00 | NUR ---
PT UP TO CHAIR FOR MEALS, RESTING IN BED IN BETWEEN. PT A+O X3, CALLS APPROPRIATELY, SBA TO BSC. DAILY DRSNG CHANGE FOR L FOOT COMPLETED @ 1830. PT RECIEVED 2 UNITS OF PRBC PER PROVIDER ORDER. IV FLUIDS AND IV ABX INFUSING PER PROVIDERS ORDERS. URINE OUTPUT SUFFICIENT FOR SHIFT.
--- NOTE | 2020-11-12 19:10 | NUR ---
SHIFT REPORT FROM NURSE HASKINS. PT IN BED, PRBC JUST FINISHED INFUSING. NURSE DIVINE CHANGING INFUSION TO VANCO AT THIS TIME; DIVINE REMAINS IN ROOM.
--- NOTE | 2020-11-12 20:03 | NUR ---
CALL LIGHT ANSWERED. SBA BSC TO VOID. PT RETURNED TO BED; SITTING AT BEDSIDE. CALL LIGHT WITHIN REACH, BEDSIDE TABLE WITHIN REACH.
--- NOTE | 2020-11-12 21:45 | NUR ---
IN ROOM FOR EVENING MEDS AND ASSESSMENT. PT UP TO BSC TO VOID. PT REQUIRES TIME TO "REGROUP" AFTER TRANSFERRING TO AND FROM COMMODE AND THIS INVOLVES SITTING AT BEDSIDE AND "CATCHING HER BREATH". FOOT DRESSING CDI, EDEMA/REDNESS/ CELLULITIS INFLAMED TO LEFT MID CALF. PT REQUESTS PRN TYLENOL FOR 7/10 PAIN IN LEFT LEG. 650MG PRN TYLENOL ADMINSTERED. CBG 269 REQURING 5UNITS SS INSULIN. ORAL TEMP CURRENTLY 100.0F; WILL CONTINUE TO MONITOR. PT C/O FEELING "BLOATED" IN ABDOMEN. BOWEL TONES ACTIVE, NO TENDERNESS WITH PALPATION, PT REPORTS A LARGE BM YESTERDAY. LUNG SOUNDS CLEAR. PT REPORTS TINGLING AND NUMBNESS (CHRONIC) IN TOES AND FINGERS. FRESH WATER PROVIDED. CALL LIGHT WITHIN REACH. NO FURHTER NEEDS AT THIS TIME.
--- NOTE | 2020-11-12 23:10 | NUR ---
CALL LIGHT ANSWERED. SBA TO BSC. PT RETURNED TO BED, CALL LIGHT WITHIN REACH. NO FURTHER NEEDS AT THIS TIME.
--- NOTE | 2020-11-13 01:03 | NUR ---
CALL LIGHT ANSWERED. IV PUMP ALARMING. PT ALSO NEEDS TO USE BSC. PT RETURNED TO BED, FRESH WATER PROVIDED. NO FURTHER NEEDS AT THIS TIME.
--- NOTE | 2020-11-13 01:37 | NUR ---
SHIFT REPORT RECEIVED FROM BRENDA DYE. PT RESTING IN BED.
--- NOTE | 2020-11-13 02:18 | NUR ---
SCHEDULED MED PROVIDED. ASSESSMENT COMPLETED. LLE REDNESS AND SWELLING NOTED. PT UP TO BSC AND BACK TO BED. NO OTHER NEEDS. CALL LIGHT IN REACH.
--- NOTE | 2020-11-13 05:25 | NUR ---
VS AND I&O COMPLETED. PT UP TO BSC AND BACK TO BED. PT HAS DYSPNEA WITH ACTIVITY BUT SLOWLY RECOVERS. NO OTHER NEEDS. CALL LIGHT IN REACH.
--- NOTE | 2020-11-13 07:32 | NUR ---
BEDSIDE REPORT...PT HAD COUGHING EPISODE, STAFF CAME INTO ROOM COUGHING RESOLVED PT RESTING IN BED ALERT AND ORIETNED. LEFT FOOT ELEVATED ON 2 PILLOWS.
--- NOTE | 2020-11-13 08:08 | NUR ---
PT UP TO BEDSIDE COMMODE ONE PERSON STANDBY ASSIST WITH FWW. PT VOIDED 500ML. GLUCOSE CHECHED, ABX INFUSING.
--- NOTE | 2020-11-13 09:20 | NUR ---
Spoke with Sully, she states she is ok. Feels better following transfusion. Awaiting bed at [facility] or [facility]. NO change in plan for transfer.
--- NOTE | 2020-11-13 09:46 | NUR ---
PT UP TO RECLINER AT THIS TIME, TALKING ON PHONE WITH HER SISTER. PT ASKED IF SHE WOULD LIKE A SHOWER, SHE SAID SHE SAID SHE DIDNT KNOW IF SHE FELT LIKE THIS, FOR SURE A BED BATH.
--- NOTE | 2020-11-13 14:54 | NUR ---
PT RESTING ON HER SIDE IN BED SNORING NOTED, PT LEFT FOOT ELEVATED ON 2PILLOWS.
--- NOTE | 2020-11-13 17:09 | NUR ---
PT CALLED FOR ASSISTANCE TO TOILET. PT ONE PERSON ASSIST TO BEDSIDE COMMODE.
--- NOTE | 2020-11-13 18:00 | NUR ---
DRESSING CHANGED PER MD ORDERS. SIGNIFICANT DRAINAGE ON DRESSING. NO ODOR NOTED.
--- NOTE | 2020-11-13 18:35 | NUR ---
PT HAS BE[facility]. SHE HAS NOT REPORTED PAIN UNTIL DRESSING CHANGE AT 1800, TYLENOL PRN GIVEN. SHE HAS HAD GOOD APPETITE TODAY. WAITING BED AT [facility] FOR TRANSFER.
--- NOTE | 2020-11-13 19:05 | NUR ---
SHIFT REPORT RECEIVED FROM BRENNEN DYE. PT UP TO BSC WITH MANAGER MEAT.
--- NOTE | 2020-11-13 19:40 | NUR ---
in to assist pt to the bsc, pt alread incont of urine, new attends and rocco pad in place, no furhert needs,pt positioning self back in bed
--- NOTE | 2020-11-13 20:05 | NUR ---
IN TO GET VITALS, FRESH ICE WATER AND TRASH EMPTIED, RN INFORMED ABOUT PTs TEMP, NO FURTHER NEEDS AT THIS TIME
--- NOTE | 2020-11-13 20:30 | NUR ---
ASSESSMENT COMPLETED. GCS 15, A&O X4. LUNGS CLEAR BUT DIMINISHED. HEART TONES REGULAR. ABD OBESE, SOFT, NONTENDER, BOWEL TONES ACTIVE. IV WNL, PT STATES IT IS SLIGHTLY TENDER, FLUSHED WELL.IV FLUIDS INFUSING PER ORDER. ATTEMPTED FOR NEW IV X2, UNSUCCESSFUL. CBG 264, MEDS PROVIDED. RLL 1+ EDEMA, LLE 2+ EDEMA, REDNESS, WARM. PT HAS NUMBNESS AND TINGLING IN ALL EXTREMITIES AT BASELINE, PULSES INTACT. PT COMPLAINS OF INABILITY TO CONTROL BLADDER AND FREQUENT BATHROOM USE, EDUCATION PROVIDED. NO OTHER NEEDS. CALL LIGHT IN REACH.
--- NOTE | 2020-11-13 20:58 | NUR ---
NEW IV STARTED BY SHOT HOLE DRILLER. PATIENT TOLERATED ACTIVITY WELL. PATIENTS IV INFUSING PER ORDER.
--- NOTE | 2020-11-13 22:30 | NUR ---
IN TO PROVIDE PT WITH ICE WATER AND HOT COCOA
--- NOTE | 2020-11-13 23:07 | NUR ---
PT RESTING IN BED, WATCHING TV. NO NEEDS AT THIS TIME. CALL LIGHT IN REACH.
--- NOTE | 2020-11-13 23:53 | NUR ---
IN TO ASSIST PT TO THE BSC, NEW ATTENS IN PLACE, PT BACK TO BED, NO FURTHER NEEDS AT THIS TIME
--- NOTE | 2020-11-14 00:26 | NUR ---
PT CALLS DUE TO IV ALARMING, RESOLVED. NO OTHER NEEDS. CALL LIGHT IN REACH.
--- NOTE | 2020-11-14 01:24 | NUR ---
PT CALLS TO USE BSC. 1PA TO BSC AND BACK TO BED. NO OTHER NEEDS. CALL LIGHT IN REACH.
--- NOTE | 2020-11-14 02:30 | NUR ---
SCHEDULED MED AND ICE WATER PROVIDED. NO OTHER NEEDS. CALL LIGHT IN REACH.
--- NOTE | 2020-11-14 03:29 | NUR ---
ASSESSMENT COMPLETED. PT STATES LLE PAIN IS 7/10, PRN PAIN MED PROVIDED. LUNGS CLEAR IN UPPER LOBES AND DIMINISHED IN LOWER LOBES. HEART TONES REGULAR. PT ON 2L NC @ NIGHT. PT HAS NUMBNESS AND TINGLING IN HANDS AND FEET AT BASELINE. PULSES INTACT. LLE UNCHANGED. NO OTHER NEEDS. CALL LIGHT IN REACH.
--- NOTE | 2020-11-14 06:34 | NUR ---
VS AND I&O COMPLETED. NEW BAG OF IV FLUIDS PROVIDED. NO OTHER NEEDS. CALL LIGHT IN REACH.
--- NOTE | 2020-11-14 06:52 | NUR ---
PT CALLS TO USE BSC, PROVIDED. NO OTHER NEEDS. CALL LIGHT IN REACH.
--- NOTE | 2020-11-14 07:03 | NUR ---
IN TO ASSIST PT TO THE CHAIR VIA SBA PIVOT, REFILLED PTs ICE WATER, CALL LIGHT IN REACH, PERSONAL TABLE AT CHAIRSIDE, NO FURTHER NEEDS AT THIS TIME
--- NOTE | 2020-11-14 07:25 | NUR ---
PT WAS UP IN CHAIR FOR BREAKFAST. THIS RN BARIATRIC GAVE PT A WARM WASHCLOTH FOR THIER FACE. WHITEBOARD IS UPDATE. CALL LIGHT IS WITHIN REACH. NO FURTHER NEEDS AT THIS TIME.
--- NOTE | 2020-11-14 07:37 | NUR ---
BEDSIDE REPORT... PER AGUSTÍN DYE PT HAD GOOD SHIFT, NO NEW CONCERNS.
--- NOTE | 2020-11-14 08:24 | NUR ---
PT PRESSED THE CALL LIGHT. THIS ICU MANAGER WENT TO HELP PT USE THE BSC. PT IS NOW IN RECLINER. CALL LIGHT IS WITHIN REACH. NO FURTHER NEEDS AT THIS TIME.
--- NOTE | 2020-11-14 10:07 | NUR ---
PT RESTING IN BED REPORTS SHE DID NOT SLEEP WELL LAST NIGHT. PT REQUEST SMALL NAP. THEN AGREES TO SHOWER AND SIT UP IN CHAIR. PT REPORTS PAIN AT LEFT FOOT 6/10 TYLENOL PRN GIVEN. LEFT FOOT ELEVATED ON PILLOWS X2.
--- NOTE | 2020-11-14 10:30 | NUR ---
No change in plan for dc. Pt is awaiting transfer.
--- NOTE | 2020-11-14 10:36 | NUR ---
PT UP TO BEDSIDE COMMODE ONE PERSON ASSIST VOIDED 300ML. PT HAS SHORTNESS OF BREATH WITH ACTIVITY. RECOVERS WELL WITH REST.
--- NOTE | 2020-11-14 11:30 | NUR ---
THIS MILITARY LAWYER HELPED PT SHOWER. PT'S FOOT WAS COVERED WITH A BAG AND TAPE ALOMG WITH A GLOVE AND TAPE OVER THEIR IV SITE. PT RECIEVED A NEW GOWN. PT IS NOW IN RECLINER WITH LUNCH. CALL LIGHT IS WITHIN REACH. NO FURTHER NEEDS AT THIS TIME.
--- NOTE | 2020-11-14 13:22 | NUR ---
dressing changed per md order. pt tolerated well, see complex wound assessment for update.
--- NOTE | 2020-11-14 17:54 | NUR ---
PT HAS BEEN DROWSY TODAY, NAPPING INTERMITTEN, UP FOR SHOWER TODAY, DRESSING CHANGED THIS AFTERNOON 1330, SEE WOUND ASSESSMNET FOR DETAILS. UNREMARKABLE SHIFT.
--- NOTE | 2020-11-14 19:05 | NUR ---
SHIFT REPORT RECEIVED FROM BRENNEN DYE. PT RESTING IN BED, EYES CLOSED. RR EVEN, UNLABORED. CALL LIGHT IN REACH.
--- NOTE | 2020-11-14 21:00 | NUR ---
ASSESSMENT COMPLETED. LLE REDNESS, EDEMA AND PAIN NOTED. DRESSING CDI. IV INFUSING, WNL, CDI, FLUSHED WELL. LUNGS CLEAR IN ALL LOBES BUT DIMINISHED IN LOWER LOBES. SCHEDULED MEDS PROVIDED. PT REPORTS HAVING NO CONTROL OVER HER BLADDER AND URINATING BEFORE SHE CAN GET TO THE BSC, BRIEFS IN PLACE. PT IS INCONTINENT OF URINE VERY OFTEN. ABD SOFT, NONTENDER, BOWEL TONES ACTIVE. REDNESS UNDER PANNUS UNCHANGED, POWDER APPLIED. ICE WATER PROVIDED. CALL LIGHT IN REACH.
--- NOTE | 2020-11-14 23:15 | NUR ---
IN TO ASSIST PT WITH NEW ATTENDS, JEREMY PAD REPLACED, PT GETTING BACK INTO BED, FRESH ICE WATER GIVEN, NO FURTHER NEEDS AT THIS TIME
--- NOTE | 2020-11-15 00:20 | NUR ---
IN TO ASSIST PT WITH ATTENDS, PT INCONT, NEW ATTENDS IN PLACE, NO FURTHER NEEDS AT THIS TIME
--- NOTE | 2020-11-15 01:36 | NUR ---
SHIFT REPORT RECEIVED FROM BRENNEN DYE. PT RESTING IN BED, EYES CLOSED. RR EVEN, UNLABORED. CALL LIGHT IN REACH.
--- NOTE | 2020-11-15 02:30 | NUR ---
SCHEDULED MED PROVIDED. ASSESSMENT COMPLETED. LUNGS CLEAR IN UPPER LOBES AND DIMINISHED LOWER LOBES. LLE 3+ EDEMA AND REDNESS, RLE 1+ EDEMA AND REDNESS. IV WNL. NO OTHER NEEDS. CALL LIGHT IN REACH.
--- NOTE | 2020-11-15 03:20 | NUR ---
PATIENT CALLED TO HAVE ATTENDS PULL UP CHANGED. THIS RN ASSISTED PATIENT IN PUTTING ON A NEW ATTENDS AND PERIPAD. PATIENT HAD NO OTHER NEEDS AT THIS TIME. CALL LIGHT IS IN REACH.
--- NOTE | 2020-11-15 06:52 | NUR ---
PATIENT IS AND OS CHARTED, PROVIDED PATIENT WITH FRESH ICE WATER, ASSISTED PATIENT WITH BED CHANGE AND DEPEND CHANGE. EMPTIED GARBAGES AND TIDIED ROOM. CALL LIGHT LEFT WITHIN REACH.
--- NOTE | 2020-11-15 07:18 | NUR ---
IN TO ASSIST PT WITH NEW ATTENDS, NEW GOWN ON DUE TO INCONT WELL, NO FURTHER NEEDS AT THIS TIME
--- NOTE | 2020-11-15 08:30 | NUR ---
RECIVED REPORT AT 0700, PT WAS AWAKE IN BED. ALL LOBES ARE DIMINISHED, ABD SOUNDS PRESENT. LLE HAS +2-+3 EDEMA, SKIN IS RED AND HOT TO TOUCH, LEFT FOOT HAS DRESSING PRESENT, LLE ALSO IS RED AND HAS +1 EDEMA PRESENT. PT STATED THAT REDNESS ON LLE HAS INCREASED SINCE YESTERDAY. WILL CONTINUE TO MONITOR.
--- NOTE | 2020-11-15 10:00 | NUR ---
PT IS SLEEPING IN ROOM. NO NEW CONCERNS NOTED AT THIS TIME.
--- NOTE | 2020-11-15 10:31 | NUR ---
RN charted vitals. I&Os are complete. Call light is in reach. The patient refused a warm wsh cloth, but will be assisted to the chair like she requested. There are no other requests at this time.
--- NOTE | 2020-11-15 12:00 | NUR ---
PT IN CHAIR READY TO EAT LUNCH. BG 246, 5 UNITS OF INSULIN GIVEN. NO NEW CONCERNS NOTED.
--- NOTE | 2020-11-15 14:48 | NUR ---
Vitals, I&Os are complete. Patient is going to rest for a while and has no requests. Call light in reach.
--- NOTE | 2020-11-15 15:28 | NUR ---
DRESSING CHANGE DONE PER NEW WRITTEN ORDER. REDNESS ON LLE HAS STILL INCREASED MORE SINCE THIS MORNING. LOBES ARE ALL DIMINISHED. RLE REDNESS HAS DECREASED SINCE THIS MORNING. LEG EDEMA REMAINES UNCHANGED. WILL CONTINUE TO MONITOR.
--- NOTE | 2020-11-15 16:55 | NUR ---
PT LOST IV SITE EARLIER AND WE WERE UNABLE TO START A NEW IV. MD ARIZA AWARE. PT ALSO HAS A MITCHELL NOW DUE TO DIURETICS GIVEN.
--- NOTE | 2020-11-15 18:09 | NUR ---
PT NEEDED SOME ADDITIONAL PRN PAIN MEDICATION FOR HER LLE PAIN 09/20. TYLENOL WAS NOT ENOUGH. MD ARIZA ORDERED OCYCODON 5MG. SINCE PT HAS A CODEIN ALLERGY (SWOLLEN TOUNGE), IT WAS VERYFIED WITH PT THAT SHE DOES NOT HAVE ANY ALLERGIC/ ADVERSE REACTIONS WITH OXYCODON. PT STATED THAT SHE DOES FINE WITH IT. PT ALSO STATED THAT SHE WILL GET AN ICHY NOSE.
--- NOTE | 2020-11-15 18:17 | NUR ---
PT DID LOOSE IV SITED THIS SHIFT AND WE WERE NOT ABLE TO START A NEW IV. MD ARIZA IS AWARE. MITCHELL WAS INSERTED THIS SHIFT DUE TO DIURETICS GIVEN. NEW BLOOD CULTURES WERE ALSO DRAWN, STILL WAITING FOR TRANSFER AT [facility] WHICH TRANSFER CENTER STATED LATE THIS AFTERNOON THAT THEY WILL NOT HAVE ANY BEDS AVAILABLE ANYTIME SOON. PICC LINE WAS NOT INSERTED TODAY DUE TO LACK OF PICC LINE STAFF AVAILABILITY. DRESSING CHANGE ORDER FOR WOUND ON LL FOOT WAS ALSO CHANGED AND DONE ACCORDINGLY.
--- NOTE | 2020-11-15 18:17 | NUR ---
PT RESTING IN BED WITH EYES CLOSED. FRESH ICE WATER GIVEN. PT TEMPERATURE 99.0 HARDIK APPLE NOTIFIED. NO FURTHER NEEDS AT THIS TIME.
--- NOTE | 2020-11-15 19:30 | NUR ---
SHIFT REPORT RECEIVED FROM HARDIK LANG. PATIENT IS CURRENTLY RESTING QUIETLY ON HER LEFT SIDE, RESPIRATIONS ARE REGULAR AND EVEN, AND CALL LIGHT IS IN REACH.
--- NOTE | 2020-11-15 22:20 | NUR ---
IN TO GET VITALS, MITCHELL EMPTIED, ICE WATER AND HOT ASIM. PROVIDED AT THIS TIME, NO FURTHERNEEDS
--- NOTE | 2020-11-15 22:25 | NUR ---
PATIENT GIVEN PAIN MEDICATIONS FOR LEFT FOOT PAIN 5/. PATIENT ASSESSMENT COMPLETE AND PATIENT SAYS SHE HAS BEEN ABLE TO GET SOME SLEEP, AND INFORMED THIS RN SHE FEELS BETTER THAN SHE HAS IN DAYS. WORKING ON PATIENT'S IV'S AND PREPARING FOR DRESSING CHANGES.
--- NOTE | 2020-11-15 23:10 | NUR ---
pt HAS ONLY HAD 2GM OF HER 4GM MAGNESIUM SULFATE. CLARIFIED WITH DR ARIZA, PER DR ARIZA, pt IS TO RECEIVE THE TOTAL ORDERED 4GM MAGNESIUM SULFATE.
--- NOTE | 2020-11-15 23:35 | NUR ---
PATIENT'S LEFT FOOT DRESSING CHANGED. PURULENT DRAINING ON OLD DRESSING. PATIENT'S PAIN ABSENT NOW AFTER LAST DOSE OF OXCODONE AND TYLENOL. NEW DRY DRESSING OF 4x4'S AND KERLIX IN PLACE. PATIENT'S 2ND Mg+ RIDER RUNNING. PATIENT HAS NO CARE NEEDS AT THIS TIME. LEFT LEG ELEVATED ON PILLOW. CALL LIGHT IN REACH AND LIGHT TURNED DOWN.
--- NOTE | 2020-11-16 01:30 | NUR ---
PATIENT RESTING QUIETLY IN LOW FOWLERS POSITION, EYES CLOSED, RESPIRATIONS REGULAR AND EVEN, AND CALL LIGHT IS IN REACH.
--- NOTE | 2020-11-16 03:27 | NUR ---
PATIENT RESTING QUIETLY ON HER LEFT SIDE, EYES ARE CLOSED, RESPIRATIONS ARE REGULAR AND EVEN, CALL LIGHT IS IN REACH.
--- NOTE | 2020-11-16 06:21 | NUR ---
PATIENT HAVING 4/10 RIGHT HIP AND BACK PAIN AND WANTED PAIN MEDICATION AND WAS GIVEN 10MG PO OXYCODONE. AM ASSESSMENT COMPLETE. PATIENT SAYS INFORMED ME SHE SLEPT PRETTY WELL EVEN THOUGH SHE DID NOT WANT TO WEAR HER CPAP LAST NIGHT AND SLEPT ELEVATED INSTEAD. PATIENT HAVING MORE TROUBLE COMPLETING HER THOUGHTS THIS AM JUST LIKE YESTERDAY AND CAN'T COMPLETE HER SENTENCES. PATIENT CURRENTLY WORKIN ON PUTTING HER DENTURE SEALANT ON AND PUTTING IN HER DENTURES. PATIENT'S CALL LIGHT IS IN REACH AND SHE HAS NO OTHER CARE NEEDS AT THIS TIME.
--- NOTE | 2020-11-16 06:35 | NUR ---
PATIENT GIVEN 5MG OXYCODONE AND 500MG TYLENOL FOR 5/10 LEFT FOOT PAIN.
--- NOTE | 2020-11-16 06:35 | NUR ---
PATIENT SAYS,"I SLEPT BETTER THAN I HAVE MY WHOLE TIME HERE." AM VS AND ASSESSMENT IS DONE. VS STABLE. MITCHELL DRAINING QUANTITY SUFFICIENT. PATIENT'S ICE WATER WAS REFILLED AND PATIENT WATCHING TV THIS MORNING. PATIENT HAS NO OTHER CARE NEEDS AT THIS TIME. CALL LIGHT IS IN REACH.
--- NOTE | 2020-11-16 08:01 | NUR ---
PT ALERT AND INTERACTIVE AT TIME OF SHIFT EXCHANGE. SITTING UP ON BED WATCHING TV DENIES DISCOMFORTS OR NEEDS OF. FRESH H20 TO BEDSIDE BREAKFAST ORDERED. DRESSING SATURATED AND DRIPPING ON THE FLOOR, CHANGED PER REQUEST NOW DRY AND INTACT.
--- NOTE | 2020-11-16 10:18 | NUR ---
PATIENT IN BED RESTING WITH EYES CLOSED. VITALS AND I&O'S CHARTED. CALL LIGHT IN REACH.
--- NOTE | 2020-11-16 10:39 | NUR ---
PT BACK TO BED FROM CHAIR RESTING ON HER SIDE DENIES NEEDS OF
--- NOTE | 2020-11-16 12:06 | NUR ---
PT SITTING UP ON THE EDGE OF THE BED FOR NOON MEAL, APPETITE INTACT. DRESSING HAS BEEN CHANGED EARLIER THIS SHIFT REMAINS INTACT. PT HAS NO C/O DISCOMFORTS ENTIRE SHIFT.
--- NOTE | 2020-11-16 14:52 | NUR ---
CALLED LAB TALKED TO TARAS, ASKED TO HAVE WOUND CULTURE RESULTS SENT PER REQUEST. SHE SAID SHE WOULD LOOK THEM UP AND FAX OVER RESULTS
--- NOTE | 2020-11-16 15:43 | NUR ---
PT RESTING IN BED DEMONSTRATES ABILITY TO DO SELF MITCHELL CARE. PT VERBALIZES UNDERSTANDING THIS NEEDS TO BE DONE AT LEAST 2 TIMES DAILY TO PREVENT INFECTION.
--- NOTE | 2020-11-16 18:07 | NUR ---
DR ALEXANDRE IN TO SEE PT DOES DRESSING CHANGE. WELL TOLERATED. PT UP TO THE EDGE OF BED FOR EVENING MEAL RESTING SUPINE NOW LOWER EXTREMITIES ELEVATED.
--- NOTE | 2020-11-16 18:17 | NUR ---
PATIENT IN BED WATCHING TV. VITALS AND I&O'S CHARTED. CALL LIGHT IN REACH. NO FURTHER NEEDS AT THIST LATASHA.
--- NOTE | 2020-11-16 19:58 | NUR ---
PATIENT RESTING QUIETLY ON HER RIGHT SIDE, EYES CLOSED, RESPIRATIONS REGULAR AND EVEN, AND CALL LIGHT IS IN REACH. NO CARE NEEDS NOTED AT THIS TIME.
--- NOTE | 2020-11-16 21:27 | NUR ---
PT WAS SWABBED FOR COVID 19
--- NOTE | 2020-11-16 22:50 | NUR ---
PATIENT BEING TRANSFERED TO [facility] BY [facility]. REPORT HAS BEEN CALLED TO DAPHNEY DIXON RN OF UNIT G-4. PATIENT'S COVID SWAB NEGATIVE AND PATIENT IS GOING TO ROOM #404. PATIENT'S PM MEDS ALL GIVEN ALONG WITH PAIN MEDICATION PRIOR TO THE TRANSPORT. PATIENT LEAVING NOW FOR [facility].
== END 2020-11-16 22:50 | disposition short-term general hospital (02) | DRG 853 ==
LOC: ED 20:13 → MS 11-10 00:02
PROVIDERS: ADMIT Internal Medicine; ATTEND Internal Medicine
PROC: 30233N1 Transfusion of Nonautologous Red Blood Cells into Peripheral Vein, Percutaneous Approach (ICD-10-PCS; principal; 2020-11-12)
PROC: 0JBR0ZZ Excision of Left Foot Subcutaneous Tissue and Fascia, Open Approach (ICD-10-PCS; 2020-11-16)
DX: A41.02 Sepsis due to Methicillin resistant Staphylococcus aureus (principal); I50.33 Acute on chronic diastolic (congestive) heart failure; I13.0 Hypertensive heart and chronic kidney disease with heart failure and stage 1 through stage 4 chronic kidney disease, or unspecified chronic kidney disease; L03.116 Cellulitis of left lower limb; E87.1 Hypo-osmolality and hyponatremia; T84.293A Other mechanical complication of internal fixation device of bones of foot and toes, initial encounter; L97.424 Non-pressure chronic ulcer of left heel and midfoot with necrosis of bone; N17.9 Acute kidney failure, unspecified; E11.628 Type 2 diabetes mellitus with other skin complications; Z20.822 Contact with and (suspected) exposure to COVID-19; E11.22 Type 2 diabetes mellitus with diabetic chronic kidney disease; N18.30 Chronic kidney disease, stage 3 unspecified; F31.9 Bipolar disorder, unspecified; E11.40 Type 2 diabetes mellitus with diabetic neuropathy, unspecified; E11.51 Type 2 diabetes mellitus with diabetic peripheral angiopathy without gangrene; J44.9 Chronic obstructive pulmonary disease, unspecified; E78.5 Hyperlipidemia, unspecified; E11.43 Type 2 diabetes mellitus with diabetic autonomic (poly)neuropathy; J45.909 Unspecified asthma, uncomplicated; E87.6 Hypokalemia; E86.0 Dehydration; D63.1 Anemia in chronic kidney disease; E11.65 Type 2 diabetes mellitus with hyperglycemia; K31.84 Gastroparesis; J20.9 Acute bronchitis, unspecified; E11.621 Type 2 diabetes mellitus with foot ulcer; Z87.19 Personal history of other diseases of the digestive system; Z90.49 Acquired absence of other specified parts of digestive tract; Z90.710 Acquired absence of both cervix and uterus; Z87.891 Personal history of nicotine dependence; Z88.0 Allergy status to penicillin; Z89.412 Acquired absence of left great toe; Z89.422 Acquired absence of other left toe(s); Z88.1 Allergy status to other antibiotic agents; Z88.2 Allergy status to sulfonamides; Z88.8 Allergy status to other drugs, medicaments and biological substances; Z88.5 Allergy status to narcotic agent; Z79.4 Long term (current) use of insulin; Z79.82 Long term (current) use of aspirin; Z79.899 Other long term (current) drug therapy; Y83.1 Surgical operation with implant of artificial internal device as the cause of abnormal reaction of the patient, or of later complication, without mention of misadventure at the time of the procedure
CPT/HCPCS: 36430; 73610; 73630; 80048; 80053; 80202; 83605; 83735; 83880; 85007; 85025; 86850; 86900; 86901; 86922; 87040; 93926; 94640; 96365; 96375; 97110; 97162; 97530; 99284-25; A9270; C9803; J0692; J1650; J1815; J1940; J3370; J3475; J7030; J7060; P9016; U0003

== ENCOUNTER 2021-01-31 17:35 | Inpatient (IN) | payer OTHER ==
[~2021-01-31] VITALS: Ht 170.2 cm; Wt 121.3 kg
[~2021-01-31 17:35] MED LIST changes: +CEFEPIME HCL1 GM IV; +CONSTULOSE10 GM/15 M PO; +DOXYCYCLINE MO100 MG PO; +MELATIN3 MG PO; +METRONIDAZ500 MG/100 IV; +PANTOPRAZOLE SO40 MG PO; +SEMGLEE100 UNIT/1 SUB-Q; +ZESTRIL40 MG PO
--- OUTSIDE RECORDS SUMMARY | 2021-01-31 17:40 | XMS ---
PreManage Notification: LINH PEDRAZA Security Regulatory Services Consultant Events No recent Security Events currently on file CRITERIA MET - ED - Positive COVID-19 Lab Result - [facility] [place] DASILVA [facility] 05/01/2018-Current PHONE: [phone] Rossi Guajardo Shipping Manager/Director Of Health Education 12/12/2020-Current PHONE: [phone] JOHN ARIZA Internal Medicine 07/10/2020-Current PHONE: [phone] Isabela has no Care Guidelines for this patient. Care History Medical/Surgical 07/10/2020 [facility] - Patient is currently established with [facility]. If patient is seen in the ED during business hours. Please contact CHWs at [facility]. Care Recommendation: If this patient has had 5 or more Emergency Department visits in the last 12 months.\T\nbsp; Patient will require education on the scope and purpose of the ED as an acute care provider not a Primary Care Provider and should not be utilized for chronic conditions.\T\nbsp; These are guidelines and the provider should exercise clinical judgment when providing care. 06/06/2018 [facility] - PATIENT PCP HAS MADE A REFERRAL TO [facility]- PATIENT STARTS PULMONARY REHAB ON 06/20/18. E.D. VISIT COUNT (12 MO.) 10 [facility]. TOTAL 10 NOTE: Visits indicate total known visits. ED/UCC VISIT TRACKING (12 MO.) 01/31/2021 17:[address] [facility] [place] TYPE: Emergency COMPLAINT: - SOB 11/09/2020 20:[address] [facility] [place] Emergency COMPLAINT: - POSSIBLE INFECTION IN LT FOOT/UNCONTROLABLE BLADDE 10/03/2020 20:[address] [facility] [place] TYPE: Emergency COMPLAINT: - DIFFICULTY BREATHING 09/23/2020 18:[address] [facility] [place] TYPE: Emergency COMPLAINT: - LOWER LEG SKIN PROBLEM DIAGNOSES: - Disorder of the skin and subcutaneous tissue, unspecified - Type 2 diabetes mellitus with diabetic chronic kidney disease - Chronic kidney disease, stage 3 unspecified - Chronic obstructive pulmonary disease, unspecified - Hyperlipidemia, unspecified - Disorder of the skin and subcutaneous tissue, unspecified - ferry terminal agent (current) use of insulin - Type 2 [...] or unspecified chronic kidney disease - Other buttermaker (current) drug therapy - half-way (current) use of aspirin - Allergy status to other drugs, medicaments and biological substances 08/22/2020 16:57 [facility] [place] TYPE: Emergency COMPLAINT: - VOMITING DIAGNOSES: - Acute gastritis without bleeding - Type 2 diabetes mellitus with diabetic neuropathy, unspecified - Allergy status to sulfonamides - Allergy status to penicillin - ferry terminal agent (current) use of aspirin - Chronic kidney disease, stage 3 unspecified - Allergy status to other antibiotic agents - Allergy status to other drugs, medicaments and biological substances - Gastroparesis - Hypertensive chronic kidney disease with stage 1 through stage 4 chronic kidney disease, or unspecified chronic kidney disease - Heart failure, unspecified - Other buttermaker (current) drug therapy - Chronic obstructive pulmonary disease, unspecified - Personal history of nicotine dependence - Nausea with vomiting, unspecified - Allergy status to narcotic agent - half-way (current) use of insulin - Hyperlipidemia, unspecified [...] diabetes mellitus with diabetic autonomic (poly)neuropathy - ferry terminal agent (current) use of insulin - Type 2 diabetes mellitus with diabetic neuropathy, unspecified - Hypertensive heart and chronic kidney disease with heart failure and stage 1 through stage 4 chronic kidney disease, or unspecified chronic kidney disease - Displaced trimalleolar fracture of left lower leg, initial encounter for closed fracture - Other buttermaker (current) drug therapy - Allergy status to [...] Personal history of nicotine dependence - Other buttermaker (current) drug therapy - Displaced trimalleolar fracture of left lower leg, initial encounter for closed fracture - Allergy status to other drugs, medicaments and biological substances - Heart failure, unspecified - Allergy status to penicillin - half-way (current) use of insulin - Chronic kidney [...] Chronic kidney disease, stage 3 unspecified - ferry terminal agent (current) use of insulin - Allergy status to other antibiotic agents - Other buttermaker (current) drug therapy - Personal history of nicotine dependence - Type 2 diabetes mellitus with diabetic autonomic (poly)neuropathy INPATIENT VISIT TRACKING (12 MO.) 11/28/2020 18:08 [facility] [place] TYPE: Inpatient Rehab DIAGNOSES: - Other specified health status - Unspecified complications of amputation stump - Morbid (severe) obesity due to excess calories - Other reduced mobility - 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, initial encounter - Body mass index [BMI] 45.0-49.9, adult [facility] [place] [facility] DIAGNOSES: - Peripheral vascular disease, unspecified - Infection and inflammatory reaction due to other internal orthopedic prosthetic devices, implants and grafts, initial encounter - Infection and inflammatory reaction due to other internal orthopedic prosthetic devices, implants and grafts, subsequent encounter - Other fracture of left lower leg, subsequent encounter for closed fracture with routine healing - Sepsis, unspecified organism - Essential (primary) hypertension - Other disorder of circulatory system - Bacteremia - Morbid (severe) obesity due to excess calories - Acute diastolic (congestive) heart failure - Methicillin resistant Staphylococcus aureus infection as the cause of diseases classified elsewhere 11/10/2020 00:[address] [facility] [place] [place] TYPE: Medical Surgical COMPLAINT: - DIABETIC WOUND L FOOT DIAGNOSES: - Allergy status to other drugs, medicaments and biological substances - Acute on chronic diastolic (congestive) heart failure - Bipolar disorder, unspecified - half-way (current) use of insulin - Acute kidney failure, unspecified - Acquired absence of other left toe(s) - Sepsis due to Methicillin resistant Staphylococcus aureus - Hyperlipidemia, unspecified - Allergy status to penicillin - Personal history of other diseases of the digestive system - Hypokalemia - Unspecified asthma, uncomplicated - Other long-term (current) drug therapy - Unspecified asthma, uncomplicated - Gastroparesis - half-way (current) use of aspirin - Non-pressure chronic ulcer of left heel and midfoot with necrosis of bone - ferry terminal agent (current) use of insulin - Acquired absence of left great toe - Dehydration - Allergy status to narcotic agent - Hypertensive heart and chronic kidney disease with heart failure and stage 1 through stage 4 chronic kidney disease, or unspecified chronic kidney disease - Type 2 diabetes mellitus with diabetic neuropathy, unspecified - Bipolar disorder, unspecified - Allergy status to other antibiotic agents - Cellulitis of left lower limb - Chronic obstructive pulmonary disease, unspecified - Allergy status to narcotic agent - Chronic kidney disease, stage 3 unspecified - half-way (current) use of aspirin - Type 2 diabetes mellitus with diabetic chronic kidney disease - Chronic kidney disease, stage 3 unspecified - Type 2 diabetes mellitus with diabetic autonomic (poly)neuropathy - Gastroparesis - Hypokalemia - Other buttermaker (current) drug therapy - Hypo-osmolality and hyponatremia - Hypertensive heart and chronic kidney disease with heart failure and stage 1 through stage 4 chronic kidney disease, or unspecified chronic kidney disease - Allergy status to other drugs, medicaments and biological substances - Type 2 diabetes mellitus with other skin complications - Type 2 diabetes mellitus with diabetic peripheral angiopathy without gangrene - Chronic obstructive pulmonary disease, unspecified - Allergy status to sulfonamides - Allergy status to penicillin - Type 2 diabetes mellitus with hyperglycemia - Acute kidney failure, unspecified - Other mechanical complication of internal fixation device of bones of foot and toes, initial encounter - Acquired absence of other left toe(s) - Hypo-osmolality and hyponatremia - Personal history of other diseases of the digestive system - Acquired absence of both cervix and uterus - Anemia in chronic kidney disease - Hyperlipidemia, unspecified - Type 2 diabetes mellitus with diabetic autonomic (poly)neuropathy - Personal history of nicotine dependence - Type 2 diabetes mellitus with diabetic chronic kidney disease - Allergy status to sulfonamides - Acute bronchitis, unspecified - Type 2 diabetes mellitus with diabetic neuropathy, unspecified - Acquired absence of other specified parts of digestive tract - Non-pressure chronic ulcer of left heel and midfoot with necrosis of bone - Type 2 diabetes mellitus with foot ulcer - Cellulitis of left lower limb - Acquired absence of other specified parts of digestive tract - Acquired absence of left great toe - Surgical operation with implant of artificial internal device as the cause of abnormal reaction of the patient, or of later complication, without mention of misadventure at the time of the procedure - Sepsis due to Methicillin resistant Staphylococcus aureus - Other mechanical complication of internal fixation device of bones of foot and toes, initial encounter - Dehydration - Surgical operation with implant of artificial internal device as the cause of abnormal reaction of the patient, or of later complication, without mention of misadventure at the time of the procedure - Type 2 diabetes mellitus with diabetic peripheral angiopathy without gangrene - Acquired absence of both cervix and uterus - Personal history of nicotine dependence - Acute bronchitis, unspecified - Allergy status to other antibiotic agents - Type 2 diabetes mellitus with hyperglycemia - Type 2 diabetes mellitus with foot ulcer - Acute on chronic diastolic (congestive) heart failure - Anemia in chronic kidney disease 10/03/2020 21:[address] [facility] [place] [place] TYPE: Medical Surgical COMPLAINT: - DECOMPENSATED CHF DIAGNOSES: - Allergy status to sulfonamides - Acute kidney failure, unspecified - Chronic kidney disease, stage 3 unspecified - Other buttermaker (current) drug therapy - COVID-19 - Type 2 diabetes mellitus with diabetic peripheral angiopathy without gangrene - Acute kidney failure, unspecified - Bipolar disorder, unspecified - Type 2 diabetes mellitus with diabetic peripheral angiopathy without gangrene - ferry terminal agent (current) use of aspirin - Acute on chronic diastolic (congestive) heart failure - Allergy status to penicillin - half-way (current) use of insulin - Allergy status to other antibiotic agents - Gastroparesis - half-way (current) use of insulin - Acute on chronic diastolic (congestive) heart failure - COVID-19 - Other buttermaker (current) drug therapy - Obstructive sleep apnea (adult) (pediatric) - Mixed simple and mucopurulent chronic bronchitis - Atherosclerotic heart disease of [place] coronary artery without angina pectoris - Hypertensive [...] neuropathy, unspecified - Atherosclerotic heart disease of [place] coronary artery without angina pectoris - Type [...] diabetes mellitus with diabetic autonomic (poly)neuropathy - half-way (current) use of aspirin - Obstructive sleep apnea (adult) (pediatric) - Chronic kidney disease, stage 3 unspecified - Allergy status to other antibiotic agents 07/12/2020 19:11 [facility] [place] TYPE: Cardiology DIAGNOSES: - Acquired absence of left foot - Other specified complication of vascular prosthetic devices, implants and grafts, subsequent encounter - Hyperkalemia - Hypo-osmolality and hyponatremia - Other specified complication of vascular prosthetic devices, implants and grafts, initial encounter - ferry terminal agent (current) use of insulin - Type 2 diabetes mellitus with diabetic polyneuropathy - Anemia, unspecified - Obesity, unspecified - Other fracture of left lower leg, subsequent encounter for closed fracture with routine healing - Acute kidney failure, unspecified - Unspecified atherosclerosis of [place] arteries of extremities, left leg - Acute diastolic (congestive) heart failure - Essential (primary) hypertension - Osteomyelitis, unspecified - Acute respiratory failure with hypoxia 07/10/2020 05:14 [facility] [place] TYPE: Medical Surgical COMPLAINT: - HYPERKALEMIA/HALEIGH DIAGNOSES: - Anemia, unspecified - Bipolar disorder, unspecified - ferry terminal agent (current) use of antithrombotics/antiplatelets - Unspecified chronic bronchitis - Atherosclerotic heart disease of [place] coronary artery without angina pectoris - Adverse effect of other systemic antibiotics, initial encounter - Hyperlipidemia, unspecified - half-way (current) use of opiate analgesic - Stricture [...] with diabetic chronic kidney disease - Other long-term (current) drug therapy - Other osteomyelitis, ankle [...] other drugs, medicaments and biological substances - half-way (current) use of insulin - Nephropathy induced by other drugs, medicaments and biological substances - Bipolar disorder, unspecified - Personal history of nicotine dependence - Chronic kidney disease, stage 3 unspecified - ferry terminal agent (current) use of opiate analgesic - Other long-term (current) drug therapy - Personal history of nicotine dependence - Anemia, unspecified - Atherosclerotic heart disease of [place] coronary artery without angina pectoris - Type 2 diabetes mellitus with diabetic polyneuropathy - ferry terminal agent (current) use of insulin - Allergy status to other antibiotic agents - Hyperkalemia - Hypertensive heart and chronic kidney disease with heart failure and stage 1 through stage 4 chronic kidney disease, or unspecified chronic kidney disease - Type 2 diabetes mellitus with other specified complication - ferry terminal agent (current) use of antithrombotics/antiplatelets - Allergy status [...] unspecified - Allergy status to penicillin - ferry terminal agent (current) use of antithrombotics/antiplatelets - Type 2 diabetes mellitus with diabetic chronic kidney disease - ferry terminal agent (current) use of insulin - Gastroparesis - Acute kidney failure, unspecified - Gastroparesis - Hyperlipidemia, unspecified - Gangrene, not elsewhere classified - Unspecified Escherichia coli [E. coli] as the cause of diseases classified elsewhere - Chronic kidney disease, stage 3 unspecified - Other buttermaker (current) drug therapy - Chronic diastolic (congestive) [...] - Body mass index [BMI]40.0-44.9, adult - ferry terminal agent (current) use of antithrombotics/antiplatelets - Type 2 [...] diabetes mellitus with hypoglycemia without coma - half-way (current) use of insulin [email or web address]
[2021-01-31] MEDS ORDERED: FLOVENT HFA12 G1 INH (17:48)
[2021-01-31] MEDS ORDERED: CLOPIDOGREL75 MG PO (17:48)
[2021-01-31] MEDS ORDERED: METOLAZONE2.5 MG PO (17:49)
[2021-01-31] MEDS ORDERED: CARVEDILOL6.25 MG PO (17:49)
[2021-01-31] MEDS ORDERED: ARIPIPRAZOLE2 MG PO (17:49)
[2021-01-31] MEDS ORDERED: CONSTULOSE10 GM/15 M PO (17:50)
[2021-01-31] MEDS ORDERED: METOLAZONE5 MG PO (17:50)
[2021-01-31] MEDS ORDERED: FLUOXETINE HCL20 M1 PO (17:50)
[2021-01-31] MEDS ORDERED: LISINOPRIL40 MG PO (17:50)
[2021-01-31] MEDS ORDERED: GABAPENTIN100 MG PO (17:50)
[2021-01-31] MEDS ORDERED: ROSUVASTATIN CA40 MG PO (17:51)
[2021-01-31] MEDS ORDERED: TORSEMIDE20 MG PO (17:51)
[2021-02-01] MEDS ORDERED: BASAGLAR K100 UNIT/1 SUB-Q (12:48)
[2021-02-01] MEDS ORDERED: INSULIN AS100 UNIT/3 SUB-Q (12:50)
--- NOTE | 2021-02-03 13:35 | EKG ---
[facility] [address] [place] [address] Signed Normal sinus rhythm Left axis deviation Minimal voltage criteria for LVH, may be normal variant ( [place] product ) Anterior infarct , age undetermined Abnormal ECG When compared with ECG of 03-OCT-2020 20:07, No significant change was found Confirmed by JOHN ARIZA MD ([id number]) on 02/03/2021 1:35:03 PM Electronically Signed By: JOHN ARIZA MD 02/03/21 1335 PATIENT NAME: LINH PEDRAZA Electrocardiogram DATE OF : 65 PHYSICIAN: JOHN ARIZA MD REPORT #: [id number] REPORT IS CONFIDENTIAL AND NOT TO BE RELEASED WITHOUT AUTHORIZATION
== END 2021-02-03 11:00 | disposition home or self-care (01) | DRG 291 ==
LOC: ED 17:35 → MS 19:27
PROVIDERS: ADMIT Internal Medicine; ATTEND Internal Medicine
DX: I13.0 Hypertensive heart and chronic kidney disease with heart failure and stage 1 through stage 4 chronic kidney disease, or unspecified chronic kidney disease (principal); I50.33 Acute on chronic diastolic (congestive) heart failure; N17.9 Acute kidney failure, unspecified; Z68.41 Body mass index [BMI] 40.0-44.9, adult; E11.42 Type 2 diabetes mellitus with diabetic polyneuropathy; N18.30 Chronic kidney disease, stage 3 unspecified; E11.22 Type 2 diabetes mellitus with diabetic chronic kidney disease; J44.9 Chronic obstructive pulmonary disease, unspecified; E87.5 Hyperkalemia; Z20.822 Contact with and (suspected) exposure to COVID-19; E78.5 Hyperlipidemia, unspecified; E11.43 Type 2 diabetes mellitus with diabetic autonomic (poly)neuropathy; K31.84 Gastroparesis; F31.9 Bipolar disorder, unspecified; G47.33 Obstructive sleep apnea (adult) (pediatric); E66.9 Obesity, unspecified; I25.10 Atherosclerotic heart disease of native coronary artery without angina pectoris; E11.65 Type 2 diabetes mellitus with hyperglycemia; Z87.891 Personal history of nicotine dependence; Z98.890 Other specified postprocedural states; Z90.49 Acquired absence of other specified parts of digestive tract; Z89.512 Acquired absence of left leg below knee; Z88.5 Allergy status to narcotic agent; Z88.0 Allergy status to penicillin; Z88.1 Allergy status to other antibiotic agents; Z88.2 Allergy status to sulfonamides; Z88.8 Allergy status to other drugs, medicaments and biological substances; Z79.02 Long term (current) use of antithrombotics/antiplatelets; Z79.51 Long term (current) use of inhaled steroids; Z79.899 Other long term (current) drug therapy; Z91.14 Patient's other noncompliance with medication regimen
CPT/HCPCS: 71045; 80048; 80053; 83880; 84484; 85025; 93005; 93010; 94640; 94760; 97162; A9270; C9803; J1650; J1815; J1940; U0003

== ENCOUNTER 2021-04-30 09:25 | Inpatient (IN) | payer OTHER ==
[~2021-04-30] VITALS: Ht 170.2 cm; Wt 132.8 kg
[~2021-04-30 09:25] MED LIST changes: +GABAPENTIN100 MG PO; +METOLAZONE2.5 MG PO; +ROSUVASTATIN CA40 MG PO
--- NOTE | 2021-04-30 09:54 | NUR ---
PT ARRIVED FROM DR. ARIZA'S OFFICE A DIRECT ADMISSION. 1 PERSON JOSE LUIS TO CHANGE INTO GOWN AND TRANSFER FROM WHEELCHAIR TO CHAIR. PT DENIES PAIN AND NAUSEA. PT REPORTS FEELING VERY DROWSY. PT NOTED TO FALL ASLEEP MULTIPLE TIMES DURING ASSESSMENT. PT IS ORIENTED TO ALL WHEN ASKED TO WAKE UP AND ANSWER QUESITONS. PT PLESENT AND INTERACTING WITH CARES. IV STARTED PER PROTOCOL, BRISK BLOOD RETURN NOTED. LABS DRAWN AND SENT PER MD ORDER WITH IV START. MEDICATION GIVEN. IV FLUSHED AND SALINE LOCKED PER PROTOCOL. ALCOHOL CAP APPLIED. COVID SWAB ORDER PLACED PER PROTOCOL. LIBIA, RT TO BEDSIDE TO COLLECT SWAB. LUGN SOUNDS CLEAR, VERY DEMINISHED IN LOWER LOBES. PT EPROTS SHORTNESS OF BREATH. HEART SOUNDS DISTANT. TELEMETRY MONITORING PLACED, NORMAL SINUS RHYTHEM WITH PAC'S NOTED. EDEMA NOTE THROUGHOUT PTS BODY. SKIN TO RIGHT LOWER LEG TIGHT AND WEEPING AT LOWER CALF. VENOUS STASUS ULCER NOTED ON RIGHT LOWER CALF WITH REDNESS, BLISTERS AND WEEPING NOTE (CONSENT SIGNED, SEE PICTURES). ABDOMEN TIGHT AND WRINKELES WITH SWELLING. +1 EDEMA NOTED IN ARMS. DEPENDANT EDMA PROMINANT AT +3 LEVEL WITH SKIN TIGHT AND DIFFICULT TO MOVE. PANNUS SWOLLWEN WITH EDMAN. SKIN UNDER PANNUS INTACT WITH MINMIAL REDNESS NOTED. MILD REDNESS NOTED TO SKIN UNDER LEFT BREAST. MICONAZOLE POWDER ORDERED. PT REPORTS DIARRHEA TODAY. PT RESTING IN CHAIR WITH EYES CLOSED. RESPIRATIONS EVEN AND UNALBORED. CALL LIGHT WITHIN REACH.
--- NOTE | 2021-04-30 10:08 | NUR ---
RT COLLECTED RAPID COVID 19 SWAB USING IN HOUSE LAB WITH NO COMPLICATIONS AT THIS TIME.
--- NOTE | 2021-04-30 11:07 | NUR ---
PT CALL LIGHT ON. 1 PERSON ASSIST PIVOT UP TO BEDSIDE COMODE. PT VOIDS ~300ML URINE, MIXED WITH DIARRHEA. PER CARE DONE. 1 PERSON ASSIST BACK TO BED. PT RESTING IN BED, NO ADDITIONAL REQUESTS OR COMPLAINTS. CALL LIGHT WITHIN REACH. BED RAILS UP.
--- NOTE | 2021-04-30 12:39 | NUR ---
MEDICATION AND BLOOD SUGAR DUE. THIS RN TO ROOM. PT GETTING UP TO BEDSIDE COMODE WITH HARDIK CRANDALL. PT VOIDS 500ML YELLOW URINE. JEREMY CARE DONE. 1 PERSON ASSIST BACK TO BED. BLOOD SUGAR TAKEN. MEDICATION GIVEN (SEE MAR). PT NOTED TO HAVE HARSH HACKING COUGH. PT REPORTS THIS IS HER BASELINE COUGH. PT SITTING UP AT EDGE OF BED EATTING LUNCH. NO ADDIITONAL REQUESTS OR COMPLAINTS. CALL LIGHT WITHIN REACH. BED RAILS UP.
[2021-04-30] MEDS ORDERED: TORSEMIDE20 MG PO (13:29)
[2021-04-30] MEDS ORDERED: METOLAZONE2.5 MG PO (13:29)
[2021-04-30] MEDS ORDERED: VENTOLIN HFA18 GM INH (13:30)
--- NOTE | 2021-04-30 13:41 | NUR ---
DIRECTOR OF PHYSIOTHERAPY SERVICES INFORMS THIS RN THAT PTS OXGYEN SATURATIONS IS IN THE LOW 80'S WHILE PT IS SLEEPING. THIS RN TO ROOM. PT CLIMBS UP TO 91% WHEN AWAKE, HEAD OF BE ELEVATED. PT LYING ON RIGHT SIDE AND STATES SHE "CAN'T BREATH WHEN I'M ON MY BACK." PT PLACED ON 2L O2 BY NC AND CLIMBS TO 95%. PT REMAINS ABOVE 90% ON 2L O2 BY NC WHILE RESTING. HEAD OF BED REMAINS ELEVATED TO 25 DEGREES. PT DECLINES 30DEGREES. NO ADDITONAL NEEDS AT THIS TIME. CALL LIGHT WIHTIN REACH. BED RAILS UP.
--- NOTE | 2021-04-30 15:03 | NUR ---
AFTERNOON ASSESSMENT AND MEDICATION DUE. PT RESTING ON LEFT SIDE WITH EYES CLOSED. MILD WHEEZE AND SNORE NOTED WITH RESPIRATIONS. PT AWAKENS TO MOVEMENT IN THE ROOM. OXGYEN SATUARTIONS 93% ON 2L O2 BY NC WHILE SLEEPING AND RISE TO 96% ON 2L O2 BY NC WHEN AWAKE. PT ENCOURAGED TO USE OXGYEN WHILE SLEEPING. PT VERBALIZES UNDERSTANDING. RT CALLED FOR BREATHING TREATMENT. PT DENIES PAIN AND NAUSEA. PT TRANSFERS SELF WITH STAND BY ASSIST UP TO BEDSIDE COMODE. VOIDS 700ML CLOUDY YELLOW URINE. PT ASSISTED WITH JEREMY CARE. NUMNESS AND TINLING CONTINUE PER BASELINE TO RIGHT LOWER LEG. LUNG SOUNDS CLEAR IN ALL LOBES, MILDY DEMINISHED IN LOWER LOBES. DYSPNEA ON EXERTION NOTED WITH TRANSFER TO BEDSIDE COMODE. HACKING OCCATIONAL COUGH CONTINUES. HEART MONITOR CONTINUES TO SHOW NORMAL SINUS RYTHEM WITH PAC'S. EDEMA UNCHANGED AT THIS TIME. VENOUS STASIS ULCER TO RIGHT LOWER LEG UNCHANGED, CONTINUES TO WEEP SEROUS FLUID, BLISTERS NOTED. PT CONTINUES SITTING ON EDGE OF BED. PT EDUCATION DONE REGARDING MEDICATIONS AND HEART FAILURE HOME CARE. PT VERBZLIES UNDERSTANDING NEEDS CONTINUED REINFORCEMENT. PT DENIES ADDITIONAL REQUESTS OR COMPLAINTS. CALL LIGHT BRICE ARGUETA.
--- NOTE | 2021-04-30 15:57 | NUR ---
ROUNDED ON PT. PT SLEEPING ON RIGHT SIDE IN BED. RR EQUAL AND NON-LABORED. 2L NC IN PLACE. CALL LIGHT IN REACH.
--- NOTE | 2021-04-30 16:13 | NUR ---
Attempted to see pt, sleeping, not awakened.
--- NOTE | 2021-04-30 16:13 | NUR ---
THIS RN TO ROOM TO CHECK ON PT. PT RESTING ON LEFT SIDE WITH EYES CLOSED. OXGYEN IN PLACE. RESPIRATIONS EVEN AND UNLABORED. PT ALLOWED TO REST. CALL LIGHT WITHIN REACH. BED RAILS UP.
--- NOTE | 2021-04-30 17:30 | NUR ---
THIS RN TO ROOM WITH EVENING MEDICATIONS. PT SITTING UP ON EDGE OF BED EATTING DINNER. PT DENIES PAIN AND NAUSEA. MEDICATIONS GIVEN. BLOOD SUGARS ON EMAR CORRECTED ACCORDING TO GLUCOMETER, 203 BLOOD SUGAR WAS TAKEN BY ANU PITT. ONLY BASAL INSULIN NEEDED. ICE WATER REFILLED. NO ADDITIONAL REQUESTS OR COMPLAINTS. CALL LIGHT WITHIN REACH.
--- NOTE | 2021-04-30 18:11 | NUR ---
PT HERE A DIRECT ADMIT FROM DR. ARIZA THIS SHIFT FOR CHF EXACERBATION. PT TRANSFERS WITH 1 PERSON STAND BY ASSIST PIVOT TO BEDSIDE COMODE AND CHAIR. PT TOELRATING 60G CARB DIET WITH GOOD APPTITIE. BLOOD SUGAR CHECKS WITH MEALS AND HS WITH SCHEDULED AND SLIDING SCALE INSULIN GIVEN. PT TOELRATING 1600ML FLUID RESTRICTION WITHOUT ISSUE. TELEMETRY MONITORING IN PLACE WITH NORMAL SINUS RHYTHEM AND OCCATIONAL PAC'S NOTED. LUNG SOUNDS CLEAR. PITTING EDMA THROUGHOUT BODY, WORSE IN DEPENDANT AREAS. PT PLACED ON 2L O2 BY NC WHILE SLEEPING TO MAINTAIN OXYGEN SATURATIONS ABOVE 92%. SCHEDULED NEBULIZER TREATMENTS GIVEN. IV LASIX GIVEN WITH LARGE AMOUNTS OF OUTPUT. PT USES CALL LIGHT APPROPRIATLY AND MAKES NEEDS KNOWN.
--- NOTE | 2021-04-30 18:14 | NUR ---
pt came back from imaging. pt is now in the bed resting. call light is within reach. no further needs at this time.
--- NOTE | 2021-04-30 18:20 | NUR ---
THIS RN TO ROOM TO CHECK ON PT. PT RESTING ON RIGHT SIDE. 2L O2 BY NC IN PLACE. MILD SNORNING NOTED. PT ALLOWED TO REST. CALL LIGHT WITHIN REACH. BED RAILS UP.
--- NOTE | 2021-04-30 19:02 | NUR ---
REPORT GIVEN TO HARDIK BULLARD, WHO IS ASSUMING CARE OF PT.
--- NOTE | 2021-04-30 19:20 | NUR ---
SHIFT REPORT RECEIVED FROM DAYSHIFT HARDIK GUILLEN AT BEDSIDE, pt AWAKE AND RESTING IN BED. NO DISTRESS NOTED, RR EVEN AND UNLABORED. pt DENIES SOB. CALL LIGHT IN REACH.
--- NOTE | 2021-04-30 20:50 | NUR ---
in to assist pt up to the bsc, back to bed, vs and accucheck done (see emar), rt in for treatment, water provided, no further needs at this time
--- NOTE | 2021-04-30 21:20 | NUR ---
assessment complete, scheduled meds given (see emar) along with prn sleep medication. pt awake and resting in bed, 2lnc in place for comfort. pt denies pain and nausea. scattered wheezing noted, rt in room recently got breathing treatment. no further needs, call light in reach.
--- NOTE | 2021-04-30 22:40 | NUR ---
PT WAS INCONTINENT OF URINE. 1PA FWW PIVOT TO BSC, CHANGED BEDDING. PT IS NOW BACK IN BED AND DENIES FURTHER NEEDS. CALL LIGHT IS CLOSE.
--- NOTE | 2021-04-30 23:30 | NUR ---
pt RESTING IN BED WITH EYES CLOSED. RR EVEN AND UNLABORED, 2LNC REMAINS IN PLACE. HOB ELEVATED, NO DISTRESS NOTED. CALL LIGHT IN REACH.
--- NOTE | 2021-05-01 00:45 | NUR ---
CALL LIGHT ANSWERED, pt UP STAND PIVOT 2PA TO BSC. pt VOIDED X1 AND IS BACK IN BED. pt ASKING TO SIT ON EDGE OF BED "FOR A BIT", pt REPORTS SOME SOB WHEN LAYING IN BED. IMPROVED AFTER POSITION CHANGE, SPO2 92-93% ON 1.5LNC. NO FURTHER NEEDS, CALL LIGHT IN REACH.
--- NOTE | 2021-05-01 01:16 | NUR ---
PT WAS SITTING UP AT EDGE OF BED SLEEPING, WOKE PT AND HAD HER LAY DOWN. ASSISTED PT TO GET MORE COMFORTABLE, SHE DENIES FURTHER NEEDS AND CALL LIGHT IS CLOSE.
--- NOTE | 2021-05-01 01:40 | NUR ---
pt REPORTS SOME PAIN IN SHOULDERS, PRN TYLENOL GIVEN, SEE EMAR. PRN BREATHING TREATMENT ALSO PROVIDED FOR SOB, pt REMAINS ON 1.5LNC, PER SHIFT REPORT pt HAS SUSPECTED SLEEP APNEA. SPO2 LOW 90'S, SPO2 86-LOW 90'S ON RA. SOME WHEEZING NOTED BEFORE BREATHING TREATMENT. VSS AND I&O'S COMPLETE. WILL CONTINUE TO MONITOR. INTACT BLISTER- APPROX SIZE OF 50 CENT PEICE REMAINS NOTED TO RLE. CAP REFILL APPROX 3 SECONDS, pt ENCOURAGED TO ELVATED RLE. HOB ELEVATED, SOB IMPROVED AFTER REPOSITIONING AND ADDITIONAL PILLOW. CALL LIGHT IN REACH.
--- NOTE | 2021-05-01 02:22 | NUR ---
pt AWAKE, SUGAR FREE SNACK PROVIDED PER pt REQUEST. NO FURTHER NEEDS, O2 OFF AT THIS TIME pt IS AWAKE. NO FURTHER NEEDS, pt REPORTS SOB CONTINUES TO IMPROVE AFTER MOST RECENT BLOOD TREATMENT. CALL LIGHT IN REACH.
--- NOTE | 2021-05-01 05:04 | NUR ---
ROUNDED ON pt, pt LOW 80'S ON RA, 2LNC BACK IN PLACE. SPO2 QUICKLY AVA TO LOW TO MID 90'S. NO FURTHER NEEDS, CALL LIGHT IN REACH.
--- NOTE | 2021-05-01 05:58 | NUR ---
VSS AND I&O'S COMPLETE. FRESH WATER-300MLS PUT IN CUP PER FLUID RESTRICTION ORDERS. pt UP TO VOID STAND PIVOT 1PA WITH FWW AND BACK TO BED. NO FURTHER NEEDS, CALL LIGHT IN REACH.
--- NOTE | 2021-05-01 07:29 | NUR ---
Shift report recieved from HARDIK Grover, pt sitting up on side of bed w/ call light in reach, pt denies any needs at this time
--- NOTE | 2021-05-01 09:15 | NUR ---
MED REC COMPLETE
--- NOTE | 2021-05-01 10:01 | NUR ---
SBA w/FWW to BSC, pt able to urinate, now back in bed sitting up on side of bed w/ call light in reach. Morning assesment complete and scheduled meds given per provider orders. Pt denies any pain, nausea, SOB, or needs at this time
--- NOTE | 2021-05-01 11:10 | NUR ---
Spoke with Maria D. She states she cont. to live in a home with sever al family members. She has a walker, wc, nebulizer, and a CPAP. She states the walker is a loaner and broken, nebulizer broke a while ago, her CPAP mask is torn. She has not been able to get a new as she did not want to call [facility] as she recieved a letter showing she owed $300 as she was noncompliant and not using.Let her know I will speak with Dr Teran and [facility]. She states she knows she needs to use her CPAP as she doesn't sleep well when she doesn't have it. Let her know I will see if I can assist her to get a new walker, nebulizer, and help with her CPAP.
--- NOTE | 2021-05-01 12:00 | NUR ---
Pt sitting up on side of bed eating lunch, scheduled and sliding scale insuling given per provider orders. Pt denies any pain, nausea, SOB, or needs at this time
--- NOTE | 2021-05-01 12:00 | NUR ---
Called and spoke with Estela at [facility]. She states she will need a f2f from Dr. Teran showing pt agrees to use her CPAP and insurance will waive the $300. She will check if pt has received a nebulizer in the last 5 years and pt qualifies for a walker. Spoke with and received RX and he completed notes of need in the chart. Faxed face sheet, Rx, H&P, progress notes to [facility].
--- NOTE | 2021-05-01 12:06 | NUR ---
PT SITTING ON BED ALERT, ORIENTED AND MUST BE FEELING BETTER BECAUSE SHE IS RATHER FEISTY TODAY IN A GOOD WAY. HAD GOOD VISIT, GAVE BLESSING AND WILL FOLLOW
--- NOTE | 2021-05-01 14:00 | NUR ---
Pt resting in bed safely w/ call light in reach, no needs at this time
--- NOTE | 2021-05-01 15:28 | NUR ---
Called and spoke with Estela. She states they have the paperwork and its is being reviewed by their team. Will more than like deliver all on Tuesday. She wanted to know if pt just needed a CPAP mask and I asked if they could call her as she had stated she was not happy with the type of mask she had.
--- NOTE | 2021-05-01 16:02 | NUR ---
Pt sitting up on side of bed w/ call light in reach, watching TV, pt denies any needs at this time
--- NOTE | 2021-05-01 18:02 | NUR ---
Pt sitting up on side of bed safely w/ call light in reach eating dinner. Pt denies any pain, nausea, SOB, or needs at this time. Scheduled insulin given but no sliding scale insulin needed as blood sugar in range
--- NOTE | 2021-05-01 19:00 | NUR ---
SHIFT REPORT RECEIVED FROM DAYSHIFT HRADIK HASKINS AT BEDSIDE. pt AWAKE AND RESTING IN BED. RR EVEN AND UNLABORED, ON RA. NO DISTRESS NOTED. pt DENIES NEEDS OR CONCERNS. CALL LIGHT IN REACH.
--- NOTE | 2021-05-01 21:00 | NUR ---
IN TO GET VS, ACCU-CHECK COMPLETE AT THIS TIME (SEE eMAR), PT PROVIDED WITH LAST 300MLs FOR THE NIGHT, PT AWARE, NO FURTHER NEEDS AT THIS TIME
--- NOTE | 2021-05-01 21:45 | NUR ---
ASSESSMENT COMPLETE, SCHEDULED MEDS GIVEN (SEE EMAR). pt A/OX4. VSS, 2LNC IN PLACE FOR BED, SUSPECTED JOSE LUIS PER SHIFT REPORT. pt DENIES PAIN AND NAUSEA. IV SITE WNL, SALINE LOCKED. NO CHANGE FROM RLE VENSOU ULCER/SCATTERED BLISTERES. PHOTOS REMAIN IN CHART. NO FURTHER NEEDS, CALL LIGHT IN REACH.
--- NOTE | 2021-05-01 22:55 | NUR ---
IN ROOM TO HELP PT TO USE BSC. SHE DENIES FURTHER NEEDS AT THIS TIME. SHE WAS COUGHING ALOT SPO2 READS 96-98%. CALL LIGHT IS CLOSE.
--- NOTE | 2021-05-01 22:57 | NUR ---
ROUNDED ON pt, COUGHING HEARD. MARKETING DIRECTOR ASSISTED LIVING EBER ALREADY IN ROOM. pt REPORTS HX SMOKING AND STATES, "I'M SMOKED FOR A LONG TIME AND SOMETIMES I COUGH LIKE THIS". SPO2 MAINTAINS IN UPPER 90'S. CALL LIGHT IN REACH.
--- NOTE | 2021-05-02 01:03 | NUR ---
pt RESTING IN BED, EYES CLOSED. RR EVEN AND UNLABORED, 2LNC REMAINS IN PLACE. CALL LIGHT IN REACH.
--- NOTE | 2021-05-02 03:10 | NUR ---
ASSESSMENT COMPLETE, NO ACUTE CHANGES. pt RESTING IN BED, ON HER LEFT SIDE. 2LNC IN PLACE. SPO2 93%, HR 83. pt DENIES NEEDS OR CONCERNS. CALL LIGHT IN REACH.
--- NOTE | 2021-05-02 03:45 | NUR ---
IN TO ASSIST PT TO THE BSC, BM AND VOID, PT UP TO THE STANDING SCALE, BSCK TO BED, NO FURTHER NEEDS AT THIS TIME
--- NOTE | 2021-05-02 05:17 | NUR ---
IN ROOM TO COLLECT VS AND I&O'S. pt DROWSY, BUT AWOKE TO VOICE. VSS, 2LNC REMAINS IN PLACE. HX PSA, pt REPORTS SHE USES CPAP AT HOME, BUT HASN'T LATELY BECAUSE HER "MASK IS TORN". WHEN ASKED IF pt WOULD USE HOSPITAL CPAP MACHINE IF PROVIDED, pt REFUSES TO USE SHE IS "CLAUSTROPHOBIC". NO FURTHER NEEDS, CALL LIGHT IN REACH.
--- NOTE | 2021-05-02 11:43 | NUR ---
Patient sitting up on edge of bed, no distress. Patient on 2L oxygen per nc, respirations non labored. Patient reports she is feeling better today. Patient had a shower this morning, once back in bed she had a short coughing fit. RLE edema noted, posterior calf blister is now draining. Encourage patient to elevate RLE as much as possible, pt receptive to plan.
--- NOTE | 2021-05-02 15:38 | NUR ---
Patient resting in bed watching tv, no distress. Patient remains on 2L oxygen per nc, respirations non labored at rest. No current needs. Personal supplies and call light within reach.
--- NOTE | 2021-05-02 18:41 | NUR ---
Patient back in bed laying on side, no distress. Patient on 2L oxygen per nc, respirations even and non labored. Patient tolerated dinner well this evening. No current needs. Encouraged patient to call staff if she has needs.
--- NOTE | 2021-05-02 18:55 | NUR ---
SHIFT REPORT RECEIVED FROM DAYSMSFT HARDIK PARIKH AT BEDSIDE. pt RESTING IN BED, RR EVEN AND UNLABORED, 2LNC IN PLACE. CALL LIGHT IN REACH.
--- NOTE | 2021-05-02 19:57 | NUR ---
PT CALLED TO USE BSC, 1PA W/FFW. SHE URNINATED 450MLS AND IS NOW SITTING AT THE EDGE OF THE BED. 250MLS OF WATER PROVIDED. PT STATES HER R LEG IS HURTING, IT IS EDEMETOUS, PINK AND WARM. SHE DECLINES PUTTING IT ON A PILLOW TO KEEP IT ELEVATED AT THIS TIME. NOTIFIED PRIMARY RN SHE KNOWS PTS BASELINE STATUS OF SWELLING IN LEG.
--- NOTE | 2021-05-02 21:30 | NUR ---
IN TO GET VITALS, ACCU-CHECK COMPLETED (see eMAR), NO FURTHER NEEDS AT THIS TIME
--- NOTE | 2021-05-02 21:47 | NUR ---
ASSESSMENT COMPLETE, SCHEDULED MEDS GIVEN (SEE EMAR) ALONG WITH SLEEP AID AND PRN TYLENOL FOR 5/10 PAIN IN RLE. pt RECENTLY REPORTED PAIN IN RLE AND WAS DANGLING FOOT FROM EDGE OF BED. REDDENED AREA NOTED, BUT NO CHANGE SINCE SHIFT REPORT. SCATTERED SMALL WATER BLISTERS REMAINS NOTED, WITH LARGER VENOUS STASIS ULCER OPEN AND WEEPING SCANT SEROUS DRAINAGE, REMAINS LABORATORY ENGINEER. PHOTOS ALREADY IN CHART. pt REPORTS GENERALIZED PAIN IN BACK OF LEG/CALF, PEDAL PULSES REMAIN WEAK. DR ARIZA MADE AWARE OF ALL INFORMATION, MD ARIZA TO PLACE WOUND CARE ORDERS. NO ORDERS RECEIVED OVER THE PHONE AT THIS TIME.
--- NOTE | 2021-05-02 23:30 | NUR ---
VENOUS STASIS ULCER TO RLE CLEANED PER MD ORDERS. OPEN ULCER APPROX 4CM IN LENGTH AND 3CM IN WIDTH, PHOTOS REMAIN IN CHART. PER SHIFT REPORT, ULCER POPPED AFTER pt SHOWERED, NO LEAKING NOTED. VARIOUS WATERLIKE BLISTERS ALSO NOTED, REMAINS INTACT. OPEN BLISTER COVERED WITH NONADHERENT COVER AND WRAPPED IN CANDELARIA WRAP. RLE ELEVATED IN BED. NO FURTHER NEEDS, CALL LIGHT IN REACH.
--- NOTE | 2021-05-03 02:06 | NUR ---
2LNC IN PLACE, RR EVEN AND UNLABORED. NO DISTRESS NOTED. EYES CLOSED. pt APPEARS COMFORTABLE AND RELAXED. CALL LIGHT IN REACH.
--- NOTE | 2021-05-03 02:50 | NUR ---
IN TO ASSIST PT TO THE BSC, PROVIDED PT WITH RAMAINING 300mls WATER FOR THE NIGHT, NO FURTHER NEEDS AT THIS TIME
--- NOTE | 2021-05-03 02:59 | NUR ---
ASSESSMENT COMPLETE, NO ACUTE CHANGES. pt AWAKE AND RESTING IN BED. REPORTS PAIN IN RLE TOLERABLE AND RATES AT 3/10. DENEIS NAUSEA. IV SITE WNL, SALINE LOCKED. CALL LIGHT IN REACH.
--- NOTE | 2021-05-03 03:27 | NUR ---
MESSAGE SENT TO DR ARIZA REGARDING SORE FOUND UNDER COLOSTOMY SITE.
--- NOTE | 2021-05-03 06:57 | NUR ---
VS AND I&O'S COMPLETE, FRESH WATER PROVIDED. CALL LIGHT IN REACH. NO FURTHER NEEDS.
--- NOTE | 2021-05-03 07:29 | NUR ---
REPORT RECEIVED FROM HARDIK BULLARD. PT UP IN ROOM FOR DAILY WEIGHT AND TO USE BEDSIDE COMODE WITH ILDA BRENNAN. PT DENIES PAIN AND REPORTS SHORNESS OF BREATH IS "MUCH BETTER THAN WHEN I CAME IN." PT DENIES ADDITIONAL REQUESTS OR COMPLAINTS AT THIS TIME. CALL LIGHT WITHIN REACH. BED RAILS UP.
--- NOTE | 2021-05-03 09:43 | NUR ---
MORNING ASSESSMENT AND MEDICATION DUE. PT RESTING IN BED ON LEFT SIDE WITH EYES CLOSED. 2L O2 BY NC IN PLACE. RESPIRATIONS EVEN AND UNLAOBRED. PT AWAKENS TO MOVEMENT IN ROOM. VITALS SIGNS STABLE. PT DENIES PAIN AND NASUEA. IV ASSESSED, WNL. NO S/S OF PHELBITIS NOTED. MEDICATIONS GIVEN, ALCOHOL CAP APPLIED. PT ALERT AND OREINETED, FOLLOWS DIRECTIONS AND RESPONDS APPRPRIATLY TO QUESTIONS. PT REPORTS NORMAL STRENGTH WITH STRENGTH TO RIGHT LEG IMPROVING. PT UP TO CHAIR WITH STAND BY PIOVT ASSIST. LUNG SOUNDS CLEAR. HARSH HACKING COUGH NOTED WITH THICK CLEAR SPUTUM. EDMA IMPROVING. NOW +2 TO RIGHT LOWER EXTREMITY. ABOMDINAL EDMA MUCH IMPROVED SINCE 2 DAYS AGO. ABDOMEN SOFT. DEPENDANT EDEMA CONTINUES. SENNA HELD PT REPORTS DIARRHEA. VENOUS STASUS ULCER TO RIGHT LOWER LEG CONTINUES. WEEPING SEROUS FLUID. NON ADHESIVE GAUZE REMOVED, WOUND OPEN TO AIR, HOT TOUCH TOUCH. REDNESS OUTLINED. REDDNESS UNDER PANNUS AND BREASTS MINIMAL, MICONAZOLE POWDER APPLIED. NO ADDITOINAL REQUESTS OR COMPLAINTS. CALL LIGHT WITHIN REACH.
--- NOTE | 2021-05-03 09:49 | NUR ---
PATIENT IN BED RESTING AT THIS TIME, RN IN ROOM. RN DID VITALS SIGNS. I&O'S CHARTED. CALL LIGHT IN REACH. NO FURTHER NEEDS AT THIS TIME.
--- NOTE | 2021-05-03 10:50 | NUR ---
THIS RN TO ROOM TO CHECK ON PT. PT UP TO CHAIR, TALKING WITH FAMILY ON PHONE. PT ASSISED WITH HER PHONE CONFIGURATION MANAGEMENT ADVISOR. PT DENIES ADDITIONAL REQUESTS OR COMPLAINTS. CALL LIGHT WITHIN REACH.
--- NOTE | 2021-05-03 12:03 | NUR ---
THIS RN TO ROOM TO CHECK ON PT. BLOOD SUGAR TAKEN. PT UP TO CHAIR FOR LUNCH. INSULIN GIVEN. PT DENIES ADDITONAL REQUESTS OR COMPLAINTS. PT DENIES PAIN AND NAUSEA. PT NOTED THAT SHE CAN "TALK MORE NOW THAT I CAN BREATH BETTER." NO ADDITONAL REQUESTS OR COMPLAINTS. CALL LIGHT WITHIN REACH.
--- NOTE | 2021-05-03 12:55 | NUR ---
MEDICATION DUE. THIS RN TO ROOM. PT UP TO BEDSIDE COMODE WITH 1 PERSON STAND BY ASSIST. PT VOIDS WITHOUT ISSUE. PERFORMS SELF JEREMY CARE. MEDICATION GIVEN. PT BACK TO BED. PT DENIES PAIN AND NAUSEA AND STATES "THE MORE I PEE THE BETTER I FEEL AND SOONER I GO HOME." PT REPORTS SHE WOULD LIKE TO TAKE A NAP. RESTING ON LEFT SIDE. BED RAILS UP. CALL LIGHT WITHIN REACH. NO ADDITIONAL REQUESTS OR COMPLAINTS.
--- NOTE | 2021-05-03 13:42 | NUR ---
THIS RN TO ROOM TO CHECK ON PT. PT RESTING ON LEFT SIDE WITH EYES CLOSED. RESPIRATIONS EVEN AND UNLABORED. 2L O2 BY NC IN PLACE. BED RAILS UP. CALL LIGHT WITHIN REACH. PT ALLOWED TO REST. BED RAILS UP.
--- NOTE | 2021-05-03 14:03 | NUR ---
PATIENT UP TO BSC AND BACK TO BED, SBA FWW. VITALS AND I&O'S CHARTED. CALL LIGHT IN REACH. NO FURTHER NEEDS AT THIS TIME.
--- NOTE | 2021-05-03 15:31 | NUR ---
AFTERNOON ASSESSMENT AND MEDICATION DUE. PT UP, SITTING ON THE EDGE OF THE BED. PT DENIES PAIN AND NASUEA. PT REPORTS HER BREATHING IS "SO MUCH BETTER." PT STATES HER LEG SWELLING IS "A LITTLE BETTER" AND ABDOMEN/BACK SWELLING IS "SO MUCH BETTER." PT REPORTS FEELING BOARD. LUNG SOUNDS CLEAR. HEART TONES REGULAR. OCCATIONAL HACKING COUGH CONTINUES. PT TOELRATES ROOM AIR WHILE AWAKE. REDNESS TO RIGHT LOWER EXTREMITY REMAINS WITHIN MARKED LINES, OINTMEENT APPLIED. LEG REMAINS WARM TO TOUCH. PT REPORTS DIARRHEA IS IMPROVING, NO EPISODES YET TODAY. REDNESS UNDER PANNUS AND BREASTS IMPROVING. PT UP FOR WHEELCHAIR RIDE IN TYLER. PT ABLE TO HOP WITH FWW TRANSFER TO WHEELCHAIR 5 FEET FROM BED. PT REPORTS IT "FEELS GOOD" TO MOVE AROUND. NO ADDITIONAL REQUESTS OR COMPLAINTS.
--- NOTE | 2021-05-03 16:32 | NUR ---
PT CALL LIGHT ON. PT REPORTS SHE WAS COUGHING AND HAD AN EPISODE OF STRESS INCONTINANCE. PT UP TO STAND WITH FWW. JEREMY CARE DONE. NEW CHUX APPLIED TO WHEELCHAIR. PT BACK TO SITTING IN WHEELCHAIR. PT DENIES NEED TO USE COMODE. NO ADDITONAL REQUESTS OR COMPLAINTS. CALL LIGHT WITHIN REACH.
--- NOTE | 2021-05-03 16:52 | NUR ---
PT HERE FOR CHF EXACERBATION. PT UP WITH 1 PERSON STAND BY ASSIST AND FWW TO CHAIR, WHEELCHAIR AND COMODE THI SHISF. PT OUT INTO HALLWAY WITH WHEELCHAIR FOR ACTIVITY. PT TOLERATING 60G CARB DIET WITH BLOOD SUGAR CHECKS AT MEALS AND SLIDING SCALE AND SCHEDULED INSULIN GIVEN. PT ALERT AND ORIENTED THROUGHOUT SHIFT AND LESS DROWSY TODAY THAN PREVIOUSLY. PT TOLERATING ROOM AIR WHEN AWAKE, CONTINUES TO NEED 2L O2 BY NC WITH SLEEP. EDMA IMPROVING TO ABDOMEN AND BACK, CONTINUES IN RIGHT LOWER LEG. RIGHT LOWER LEG WASHED AND NEW MEDICAITON APPLIED. MONITORING REDNESS/SWELLING AND HEAT OF THIS WOUND. IV LASIX GIVEN WITH GOOD RESULTS. PT IS DAILY WEIGHT, WEIGHT DECREASING. PT USES CALL LIGHT AND MAKES NEEDS KNOWN.
--- NOTE | 2021-05-03 17:36 | NUR ---
THIS RN TO ROOM TO CHECK ON PT. PT UP TO WHEELCHAIR FINISHING DINNER. PT DENIES PAIN AND NAUSEA. 1 PERSON STAND BY ASSIST UP TO BEDSIDE COMODE. PT VOIDS WITHOUT ISSUE. PT PERFORMS SELF JEREMY CARE. PT HAS COUGHING FIT AND THICH WHITE SPUTUM NOTED. PT REPROTS "LOOSING MY AIR." 2L O2 BY NC BACK IN PLACE AND PT RECOVERS AFTER 2-5 MINUTES. MEDICATIONS GIVEN. DENTURES PLACED IN WATER WITH DENTURE TABLET. PTS GOWN CHANGED. NO ADDITIONAL REQUESTS OR COMPLAINTS. CALL LIGHT WITHIN REACH. STAND BY ASSIST BACK TO BED. BED RAILS UP.
--- NOTE | 2021-05-03 17:59 | NUR ---
PATIENT SITTING IN SIDE OF BED WATCHING TV. VITALS AND I&O'S CHARTED. CALL LIGHT IN REACH. NO FURTHER NEEDS AT THIS TIME.
--- NOTE | 2021-05-03 18:28 | NUR ---
THIS RN TO ROOM TO CHECK ON PT. PT SITTING ON EDGE OF BED PLAYING ON PHONE AND WATCHING TV. PT DENIES PAIN AND NAUSEA AND SHORTNESS OF BREAT. PT ON ROOM AIR AT THIS TIME WITH OXGYEN SATURATIONS ABOVE 92%. PT DENIES REQUESTS OR COMPLAINTS. CALL LIGHT WITHIN REACH. BED RAILS UP.
--- NOTE | 2021-05-03 19:00 | NUR ---
SHIFT REPORT RECEIVED FROM [facility] HARDIK GUILLEN AT BEDSIDE. pt AWAKE AND RESTING IN BED, 2LNC IN PLACE. CALL LIGHT IN REACH. NO NEEDS VERBALIZED. VENOUS STASIS ULCER TO RLE LABOR ECONOMIST, DRY. REDDNESS WITHIN OUTLINE.
--- NOTE | 2021-05-03 20:50 | NUR ---
SBA FROM BEDSIDE COMMODE. V/S, I&0'S AND BLOOD SUGAR CHECK DONE AND CHARTED. NO OTHER NEEDS AT THIS TIME.
--- NOTE | 2021-05-03 21:35 | NUR ---
ASSESSMENT COMPLETE, SCHEDULED MEDS GIVEN (SEE EMAR). pt DENIES PAIN AND NAUSEA. BT ACTIVE, LAST OF WATER GIVEN (300 MLS). RLE REMAINS UNCHANGED SINCE START OF SHIFT, REDDNESS WITHIN OUTLINE. pt REPORTS DISCOMFORT TO HEEL, SMALL OPEN BLISTER NOTED, HEEL PROTECTOR PROVIDED. AND RLE ELEVATED IN BED. EDUCATION PROVIDED. NO FURTHER NEEDS, CALL LIGHT IN REACH.
--- NOTE | 2021-05-03 23:29 | NUR ---
pt RESTING IN BED, FACING WINDOW. RR EVEN AND UNLABORED. 2LNC REMAINS IN PLACE. NO S/SX OF PAIN OR DISTRESS NOTED. WILL MONITOR FOR CHANGES. CALL LIGHT IN REACH.
--- NOTE | 2021-05-04 00:46 | NUR ---
CALL LIGHT ANSWERED. SBA TO BEDSIDE COMMODE. PATIENT IS SITTING AT THE EDGE OF THE BED STATED SHE WILL SIT THERE FOR A LITTLE BIT. PATIENT IS ALERT AND ORIENTED. CALL LIGHT IN REACH.
--- NOTE | 2021-05-04 01:28 | NUR ---
pt AWAKE AND RESTING IN BED, ASSESSMENT COMPLETE. NO ACUTE CHANGES. pt DENIES PAIN AND NAUSEA. HARSH SMOKER'S COUGH NOTED-INTERMITENT. NO NEEDS OR CONCERNS VERBALIZED. CALL LIGHT IN REACH.
--- NOTE | 2021-05-04 02:10 | NUR ---
CALL LIGHT ANSWERED. PATIENT REPOSITIONED. BED ALARM ON. NO FURTHER NEEDS AT THIS TIME.
--- NOTE | 2021-05-04 06:57 | NUR ---
PATIENT GOT UP TO BEDSIDE COMMODE AND URINATED 500ML. DAILY WEIGHT OBTAINED. PATIENT IS BACK IN BED HAVING COFFEE WHICH IS PART OF HER NIGHT INTAKE.
--- NOTE | 2021-05-04 07:40 | NUR ---
REPORT RECIEVED FROM NIGHT NURSE HARDIK BULLARD
--- NOTE | 2021-05-04 08:00 | NUR ---
Called [facility] and updated pt remains in the hospital if they want to deliver supplies to rm [id number].
--- NOTE | 2021-05-04 09:17 | NUR ---
MORNING ASSESSMENT DONE, MEDICATIONS GIVEN. PATIENT GIVEN 7 TOTAL UNITS OF HUMALOG (BG 176) AFTER BREAKFAST. PATIENT IS SITTING UP IN BED, DENIES PAIN, COMMODE WITHIN REACH, 80 UNITS OF IV LASIX GIVEN. RIGHT LOWER EXTREMITY IS OUTLINED, ACTIVELY WEEPING, MUPIROCIN OINTMENT APPLIED. LUNGS ARE CLEAR WITH DIM BASES.
--- NOTE | 2021-05-04 10:38 | NUR ---
PATIENT SITTING ON SIDE OF BED WATCHING TV. VITALS AND I&O'S CHARTED. CALL LIGHT IN REACH. NO FURTHER NEEDS AT THIS TIME.
--- NOTE | 2021-05-04 11:15 | NUR ---
Spoke with Mari aD and notified [facility] will be delivering supplies to the hospital. Discussed pt in [phone] Teran and she will not dc today.
--- NOTE | 2021-05-04 12:50 | NUR ---
PATIENT GIVEN 7 UNITS (5 BOLUS WITH MEALS + 2 PER SS) PATIENT SELF ADMINISTERED INSULIN TO RIGHT ABDOMEN. 80MG IV LASIX GIVEN.
--- NOTE | 2021-05-04 13:36 | NUR ---
PATIENT SITTING UP ON BED TALKING ON PHONE. VITALS AND I&O'S CHARTED. CALL LIGHT IN REACH. NO FURTHER NEEDS AT THIS TIME.
--- NOTE | 2021-05-04 14:07 | NUR ---
REPORT RECEIVED FROM CHARGE AND PT. CARE RESUMED.
--- NOTE | 2021-05-04 19:15 | NUR ---
BEDSIDE REPORT FROM YOON DEY, PT SITTING AT BEDSIDE. SHE REPORTS NO NEEDS AT THIS TIME. REPORT YOON DYE SAID THAT PT HAS BEEN INDEPENDENT TO BEDSIDE COMMODE WITH STEADY TRANSFERS
--- NOTE | 2021-05-04 23:21 | NUR ---
PT SITTING UP AT SIDE OF BED PLAYING A GAME ON HER CELL PHONE. SHE IS ALERT AND ORIENTED. SHE REPORTS NO PAIN, NO NAUSEA. ASSESSMENT COMPLETE, HS MEDS PASSED BY DIVINE Decker RN. PT HAS NO REQUESTS OR CONCERNS. AWARE AND TOLERATING HER FLUID RESTRICTION WITHIN PARAMETERS.
--- NOTE | 2021-05-05 04:55 | NUR ---
PT HAS BEEN AWAKE MOST OF SHIFT, PT REPORTED THAT SHE IS A "NIGHT OWL" SHE HAS NOT REPORTED ANY NAUSEA OR PAIN OVER SHIFT, SHE HAS BEEN INDEPENDENT TO BSC WITH FWW. SHE HAS BEEN COMPLIANT WITH FLUID RESTRICTION.
--- NOTE | 2021-05-05 08:10 | NUR ---
REPORT FROM PIANO TUNER. ASSISTED PT TO WIPE AND CHANGED BEDDING IT WAS SOILED. PT MOVES SELF FROM BED TO COMMODE WITH FWW. PT STATES SHE IS READY TO GO HOME.
[2021-05-05] MEDS ORDERED: DOXYCYCLINE HY100 MG PO (10:01)
[2021-05-05] MEDS ORDERED: TORSEMIDE20 MG PO (10:02)
--- NOTE | 2021-05-05 11:13 | NUR ---
Spoke with pt and she received her walker, nebulizer, and new face mask for CPAP. Ready for dc and denies other needs. Discussed Dr. Teran feels she would do better with a noninvasive vent and I am sending the paperwork to [facility] and they will follow up with her after she gets home. This will need to be authed by [facility].
--- NOTE | 2021-05-05 11:24 | NUR ---
Received a call from Majo at EMS. Crew has been called out, they are calling in a second crew and they will be here in 1 hour.
--- NOTE | 2021-05-05 11:27 | NUR ---
Called [facility] and scheduled transport. They were unable to give me a time, but will be here for transport.
--- NOTE | 2021-05-05 12:15 | NUR ---
PT DISCHARGE INFORMATION GONE OVER WITH RN KIMBERLY LEYVA AND THIS RN. PT VERBALIZED UNDERSTANDING. EXPLAINED THE WHOLE CHF PACKET AND IMPORTANCE OF DAILY WEIGHTS. RN EUGENE HURTADO WILL BE CONTACTING HER WITH A SCALE FOR HOME USE.
--- NOTE | 2021-05-05 15:00 | NUR ---
Received call from Scott at [facility]. States he needs NIV setting added to Rx and he is unable to get to patient today. Appologized as I was trying to clarify with my note, he could follow up with pt at home when auth is received. Informed I will take the rx to Dr. Teran and have him complete. Dr Teran completed and I faxed to [facility].
--- NOTE | 2021-05-07 12:55 | NUR ---
Heart failure follow up call: Called Maria D today. She states she is feeling great and appetite is very good. Reviewed what low sodium diet is. She has a follow up with Dr Teran next week and is arranging a ride. Her caregiver sets up her meds and reports no concerns or questions about DC changes. She has not obtained scales. She agrees to have caregiver pear picker [employer] scales and packet of information, including weight log& low sodium grocery list, at [facility] commercial front load driver. Welcomed patient to call this service PRN for heart failure self management assistance.
== END 2021-05-05 13:00 | disposition home or self-care (01) | DRG 291 ==
LOC: MS 09:25
PROVIDERS: ADMIT Internal Medicine; ATTEND Internal Medicine
DX: I11.0 Hypertensive heart disease with heart failure (principal); I50.33 Acute on chronic diastolic (congestive) heart failure; E66.2 Morbid (severe) obesity with alveolar hypoventilation; L03.115 Cellulitis of right lower limb; Z20.822 Contact with and (suspected) exposure to COVID-19; I87.2 Venous insufficiency (chronic) (peripheral); E78.5 Hyperlipidemia, unspecified; J44.9 Chronic obstructive pulmonary disease, unspecified; I25.10 Atherosclerotic heart disease of native coronary artery without angina pectoris; G89.4 Chronic pain syndrome; E11.51 Type 2 diabetes mellitus with diabetic peripheral angiopathy without gangrene; I73.9 Peripheral vascular disease, unspecified; F31.9 Bipolar disorder, unspecified; Z91.11 Patient's noncompliance with dietary regimen; Z89.612 Acquired absence of left leg above knee; Z88.5 Allergy status to narcotic agent; Z88.0 Allergy status to penicillin; Z88.1 Allergy status to other antibiotic agents; Z88.2 Allergy status to sulfonamides; Z79.02 Long term (current) use of antithrombotics/antiplatelets; Z79.899 Other long term (current) drug therapy; Z79.4 Long term (current) use of insulin
CPT/HCPCS: 36415; 71046; 80048; 80053; 82803; 83735; 94640; 94667; 94668; 94760; A9270; C9803; J1650; J1815; J1940; U0003

== ENCOUNTER 2021-12-03 20:17 | Emergency (ER) | payer OTHER ==
[~2021-12-03] VITALS: Ht 170.2 cm; Wt 131.7 kg
--- OUTSIDE RECORDS SUMMARY | 2021-12-03 20:20 | XMS ---
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 Care History Medical/Surgical 02/24/2021 [facility] Patient sent to ER by PCP Dr. Ariza. Follow up visit on 02/27/2021. 07/10/2020 [facility] - Patient is currently established with [facility]. If patient is seen in the ED during business hours. Please contact CHWs at [facility]. Care Recommendation: If this patient has had 5 or more Emergency Department visits in the last 12 months.\T\nbsp; Patient will require education on the scope and purpose of the ED as an acute care provider not a Primary Care Provider and should not be utilized for chronic conditions.\T\nbsp; These are guidelines and the provider should exercise clinical judgment when providing care. 06/06/2018 [facility] - PATIENT PCP HAS MADE A REFERRAL TO [facility]- PATIENT STARTS PULMONARY REHAB ON 06/20/18. E.D. VISIT COUNT (12 MO.) 3 [facility] TOTAL 3 NOTE: Visits indicate total known visits. ED/UCC VISIT TRACKING (12 MO.) 12/03/2021 20:18 [facility] TYPE: Emergency COMPLAINT: - NAUSEA, VOMITING 02/20/2021 16:37 [facility] TYPE: Emergency COMPLAINT: - CHEST PAIN 01/31/2021 17:35 [facility] TYPE: Emergency COMPLAINT: - SOB INPATIENT VISIT TRACKING (12 MO.) 04/30/2021 09:30 [facility] TYPE: Medical Surgical COMPLAINT: - CONGESTIVE HEART FAILURE DIAGNOSES: - Contact with and (suspected) exposure to COVID-19 - Other manager long term care (current) drug therapy - Allergy status to sulfonamides - Cellulitis of right lower limb - jail (current) use of antithrombotics/antiplatelets - 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 - Peripheral vascular disease, unspecified - Obstructive sleep apnea (adult) (pediatric) - Bipolar disorder, unspecified - Allergy status to narcotic agent - Bipolar disorder, unspecified - Hyperlipidemia, unspecified - jail (current) use of antithrombotics/antiplatelets - Type 2 diabetes mellitus with diabetic peripheral angiopathy without gangrene - Peripheral vascular disease, unspecified - Chronic pain syndrome - Acquired absence of left leg above knee - Acute on chronic diastolic (congestive) heart failure - 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 - Type 2 diabetes mellitus with diabetic peripheral angiopathy without gangrene - Hypertensive heart disease with heart failure - Acute on chronic diastolic (congestive) heart failure - Other residential (current) drug therapy - Venous insufficiency (chronic) (peripheral) - Allergy status to sulfonamides - Chronic pain syndrome - Allergy status to other antibiotic agents - jail (current) use of insulin - Hyperlipidemia, unspecified - Acquired absence of left leg above knee - Patient's noncompliance with dietary regimen - Allergy status to penicillin - Allergy status to narcotic agent - Allergy status to other antibiotic agents - Chronic obstructive pulmonary disease, unspecified - Unspecified chronic bronchitis - Patient's noncompliance with dietary regimen - 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 [place] TYPE: Observation COMPLAINT: - PLEURAL EFFUSION DIAGNOSES: - Unspecified diastolic (congestive) heart failure - Unspecified mood [affective] disorder - Type 2 diabetes mellitus with diabetic chronic kidney disease - Personal history of nicotine dependence - Allergy status to other antibiotic agents - Chronic kidney disease, stage 3 unspecified - Allergy status to penicillin - Contact with and (suspected) exposure to COVID-19 - Chronic obstructive pulmonary disease, unspecified - Allergy status to narcotic agent - Allergy status to other drugs, medicaments and biological substances - Hypertensive heart and chronic kidney disease with heart failure and stage 1 through stage 4 chronic kidney disease, or unspecified chronic kidney disease - 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 TYPE: Medical Surgical COMPLAINT: - CONGESTIVE HEART FAILURE DIAGNOSES: - Allergy status to penicillin - Hyperkalemia - Hypertensive heart disease with heart failure - jail (current) use of antithrombotics/antiplatelets - Patient's other noncompliance with medication regimen - Contact with and (suspected) exposure to COVID-19 - Acute kidney failure, unspecified - Other specified postprocedural states - jail (current) use of inhaled steroids - Type 2 diabetes mellitus with hyperglycemia - Hyperlipidemia, unspecified - Chronic obstructive pulmonary disease, unspecified - Chronic kidney disease, stage 3 unspecified - Acquired absence of left leg below knee - 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 - Bipolar disorder, unspecified - Personal history of nicotine dependence - Allergy status to narcotic agent - Type 2 diabetes mellitus with diabetic chronic kidney disease - Type 2 diabetes mellitus with diabetic autonomic (poly)neuropathy - Allergy status to other antibiotic agents - Allergy status to sulfonamides - Gastroparesis - Obstructive sleep apnea (adult) (pediatric) - Body mass index [BMI] 40.0-44.9, adult - Allergy status to other drugs, medicaments and biological substances - Acute on chronic diastolic (congestive) heart failure - Acquired absence of other specified parts of digestive tract - Obesity, unspecified - Type 2 diabetes mellitus with diabetic polyneuropathy - Hypertensive heart and chronic kidney disease with heart failure and stage 1 through stage 4 chronic kidney disease, or unspecified chronic kidney disease - Other manager long term care (current) drug therapy [email or web address]
[2021-12-03] MEDS ORDERED: JARDIANCE10 MG PO (20:28)
[2021-12-03] MEDS ORDERED: SOAANZ20 MG PO (20:28)
[2021-12-03] MEDS ORDERED: METOLAZONE2.5 MG PO (20:29)
[2021-12-04] MEDS ORDERED: POTASSIUM CHLO20 ME2 PO (04:36)
[2021-12-04] MEDS ORDERED: PEPCID20 MG PO (04:36)
[2021-12-04] MEDS ORDERED: DOXYCYCLINE HY100 MG PO (04:44)
--- NOTE | 2021-12-05 20:52 | EKG ---
[facility] [address] [place] [address] Signed Sinus rhythm with premature supraventricular complexes and with occasional premature ventricular complexes Left axis deviation Left bundle branch block Abnormal ECG When compared with ECG of 20-FEB-2021 16:48, premature ventricular complexes are now present premature supraventricular complexes are now present Left bundle branch block is now present Prolonged QT Confirmed by Anum Lira MD () on 12/05/2021 8:52:23 PM Electronically Signed By: ANUM LIRA MD 12/05/212051 PATIENT NAME: LINH PEDRAZA Electrocardiogram DATE OF : 65 PHYSICIAN: ANUM LIRA MD REPORT #: [id number] REPORT IS CONFIDENTIAL AND NOT TO BE RELEASED WITHOUT AUTHORIZATION
== END 2021-12-04 05:06 | disposition home or self-care (01) ==
LOC: ED 20:17
DX: E86.0 Dehydration (principal); L03.115 Cellulitis of right lower limb; Z20.822 Contact with and (suspected) exposure to COVID-19; E87.6 Hypokalemia; E11.40 Type 2 diabetes mellitus with diabetic neuropathy, unspecified; J44.9 Chronic obstructive pulmonary disease, unspecified; E78.5 Hyperlipidemia, unspecified; I50.9 Heart failure, unspecified; I13.0 Hypertensive heart and chronic kidney disease with heart failure and stage 1 through stage 4 chronic kidney disease, or unspecified chronic kidney disease; N18.30 Chronic kidney disease, stage 3 unspecified; E11.22 Type 2 diabetes mellitus with diabetic chronic kidney disease; Z87.891 Personal history of nicotine dependence; Z88.5 Allergy status to narcotic agent; Z88.8 Allergy status to other drugs, medicaments and biological substances; Z88.0 Allergy status to penicillin; Z88.2 Allergy status to sulfonamides; Z88.1 Allergy status to other antibiotic agents; Z79.899 Other long term (current) drug therapy; Z79.4 Long term (current) use of insulin
CPT/HCPCS: 36415; 71045; 74176; 80048; 80053; 81001; 83690; 83735; 84484; 85025; 87502; 93005; 93010; 96361; 96365; 96366; 96375; 99285-25; A9270; C9113; C9803; J1790; J2405; J3480; J7030; J7121; U0003

== ENCOUNTER 2022-02-07 14:41 | Inpatient (IN) | payer OTHER ==
[~2022-02-07] VITALS: Ht 170.2 cm; Wt 142.1 kg
[~2022-02-07 14:41] MED LIST changes: +JARDIANCE10 MG PO; +PEPCID20 MG PO; +POTASSIUM CHLO20 ME2 PO; +SOAANZ20 MG PO
--- OUTSIDE RECORDS SUMMARY | 2022-02-07 14:44 | XMS ---
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 Care History Medical/Surgical 02/24/2021 [facility] Patient sent to ER by PCP Dr. Ariza. Follow up visit on 02/27/2021. 07/10/2020 [facility] - Patient is currently established with [facility]. If patient is seen in the ED during business hours. Please contact CHWs at [facility]. Care Recommendation: If this patient [...] exercise clinical judgment when providing care. 06/06/2018 [facility] - PATIENT PCP HAS MADE A REFERRAL TO [facility]- PATIENT STARTS PULMONARY REHAB ON 06/20/18. E.D. VISIT COUNT (12 MO.) 3 [facility] TOTAL 3 NOTE: Visits indicate total known visits. ED/UCC VISIT TRACKING (12 MO.) 02/07/2022 14:42 [facility] TYPE: Emergency COMPLAINT: - LOWER R LEG PAIN 12/03/2021 20:18 [facility] TYPE: Emergency COMPLAINT: - NAUSEA, VOMITING DIAGNOSES: - Type 2 diabetes mellitus with diabetic chronic kidney disease - Dehydration - Type 2 diabetes mellitus with diabetic neuropathy, unspecified - Allergy status to other drugs, medicaments and biological substances - Nausea with vomiting, unspecified - Allergy status to sulfonamides - Hypertensive heart and chronic kidney disease with heart failure and stage 1 through stage 4 chronic kidney disease, or unspecified chronic kidney disease - Allergy status to other antibiotic agents - Allergy status to penicillin - Allergy status to narcotic agent - Heart failure, unspecified - 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 TYPE: Medical Surgical COMPLAINT: - CONGESTIVE HEART FAILURE DIAGNOSES: - Allergy status to sulfonamides - Cellulitis of right lower limb - meterman (current) use of antithrombotics/antiplatelets - meterman (current) use of insulin - Peripheral vascular disease, unspecified - Obstructive sleep apnea (adult) (pediatric) - Bipolar disorder, unspecified - Allergy status to narcotic agent - Bipolar disorder, unspecified - Hyperlipidemia, unspecified - meterman (current) use of antithrombotics/antiplatelets - Type 2 diabetes mellitus with diabetic peripheral angiopathy without gangrene - Peripheral vascular disease, unspecified - Chronic pain syndrome - Acquired absence of left leg above knee - Acute on chronic diastolic (congestive) heart failure - Atherosclerotic heart disease of [place] coronary artery without angina pectoris - Type 2 diabetes mellitus with diabetic peripheral angiopathy without gangrene - Hypertensive heart disease with heart failure - Acute on chronic diastolic (congestive) heart failure - Other alf (current) drug therapy - Venous insufficiency (chronic) (peripheral) - Allergy status to sulfonamides - Chronic pain syndrome - Allergy status to other antibiotic agents - meterman (current) use of insulin - Hyperlipidemia, unspecified - Acquired absence of left leg above knee - Patient's noncompliance with dietary regimen - Allergy status to penicillin - Allergy status to narcotic agent - Allergy status to other antibiotic agents - Chronic obstructive pulmonary disease, unspecified - Unspecified chronic bronchitis - Patient's noncompliance with dietary regimen - Atherosclerotic heart disease of lime coronary artery without angina pectoris - Morbid (severe) obesity with alveolar hypoventilation - Allergy status to penicillin - Contact with and (suspected) exposure to COVID-19 - 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
--- NOTE | 2022-02-07 19:10 | NUR ---
PT ARRIVED FROM ED ALERT AND ORIENTED, SHE REPORTS PAIN 5/10 AND THAT SHE HAS NOT HAD ANYTHING TO EAT AND IS WANTING FOOD.
--- NOTE | 2022-02-07 20:21 | NUR ---
CHARGE NURSE IN ROOM FOR INTAKE NOTED PT HAVING SIGNIFICANT ITCHING AROUND IV SITE AND DOWN ARM WHILE LEVAQUIN INFUSING, SHE STOPPED LEVAQUIN, THIS RN CALLED ANGELY ZAYAS ORDERED, D/C LEVAQUIN AT THIS TIME PER ORDERS.
--- NOTE | 2022-02-07 22:53 | NUR ---
PT REQUESTED PAIN MEDICATION AT THIS TIME, AT NURSES STATION, DSICUSSED WITH , NO NEW ORDERS AT THIS TIME. PT PROVIDED TYLENOL PRN AND ELEVATED RIGHT LEG AND PLACED ICE PACK. DISCUSSED NEXT PAIN MEDICATION WILL BE AVAILABLE AT [id number]. SHE SAID THAT WILL BE FINE, SHE REPORTS PAIN NOW AT 6/10 WHICH IS MUCH IMPROVED FROM ADMISSION.
--- NOTE | 2022-02-07 23:46 | NUR ---
PT JUST UP TO BEDSIDE COMMODE ONE PERSON ASSIST TRANSFER, FWW NOW PROVIDED FOR MORE STABILITY. SHE REPORTS HER PAIN 8, DILAUDID 2MG PO PRN ADMINISTERED AT THIS TIME, SHE REPORTS NO OTHER NEEDS AT THIS TIME
--- NOTE | 2022-02-08 00:24 | NUR ---
PT CONTINUES TO HAVE DISTAL OCCLUSION ALARMS DUE TO BENDING ARM WITH LEFT AC IV SITE, DISCUSSED WITH PT TO START NEW IV, PT SAID "SURE". 22 GAUGE IN RIGHT RA PLACED ONN FIRST ATTEMPT WITH BRISK BLOOD RETURN, VANCO NOW INFUSING IN THIS NEW SITE.
--- NOTE | 2022-02-08 01:28 | NUR ---
ROUNDED TO PT ROOM TO SL NOW VANCO INFUSION COMPLETE. NO OTHER CONCERNS AT THIS TIME. PT HAS BEEN SLEEPING WELL PER HER REQUESTS
--- NOTE | 2022-02-08 02:19 | NUR ---
PT UP TO BEDSIDE COMMODE STAND PIVOT WITH FWW WITH STANDBY ASSIST. VOIDED 400ML, TOLERATED WELL. NOW SITTING UP IN RECLINER. PT ASKED ABOUT BREAKFAST MENU, DISCUSSED MENU OPTIONS AND PROTOCOL FOR CHANGES.
--- NOTE | 2022-02-08 04:29 | NUR ---
PT REPORTS PAIN 4/10 AND INCREASING, DILAUDID AND TYLENOL PRN ADMINISTERED AT THIS TIME. PT THEN BACK TO BED FROM RECLINER WITH FWW STAND PIVOT, TOLERATED ACTIVITY WELL WITH MINIMAL CONTACT ASSIST. V/S COMPLETE AND AM ASSESSMENT COMPLETE
--- NOTE | 2022-02-08 05:11 | NUR ---
PT ADMITTED AT START OF SHIFT, SHE HAS SLEPT WELL OVER SHIFT PER HER REPORT, IT HAS BEEN INTERMITTEN, SHE HAS BEEN UP FREQUEST TO VOID, SHE HAS MILD REACTION OF ITCH WITH LEVAQUIN ABX AT START OF SHIFT, BENADRYLE ADMINISTERED, ITCH RESOLVED. NO FURTHER ISSUES, SHE HAS BEEN PLEASANT AND COOPERATIVE WITH ALL CARE. SHE IS A ONE PERSON PIVOT TO BEDSIDE COMMODE TO VOID. RLE CELLULITIS IS OUTLINED AND PHOTOS TAKEN AT START OF SHIFT. VANCO ADMINISTERED NO ISSUES. SHE HAS BEEN AFEBRILE. PAIN HAS BEEN WELL CONTROLLED WITH CURRENT ORDERS, SEE EMAR.
--- NOTE | 2022-02-08 07:09 | NUR ---
CALL LIGHT ANSWERED. PT REQ TO USE BSC. PT ASSISTED TO BSC USING FWW 1 PA. PT GIVEN CALL LIGHT TO CALL WHEN DONE ON COMMODE.
--- NOTE | 2022-02-08 10:07 | NUR ---
Patient sitting up on side of bed, no distress. Patient reports she slept well last night. Right leg is red and swollen within previously marked borders. Encouraged patient to keep leg elevated as much as possible. Personal supplies and call light within reach.
[2022-02-08] MEDS ORDERED: JARDIANCE25 MG PO (11:18)
[2022-02-08] MEDS ORDERED: DICLOFENAC SOD100 G1 TOP (11:36)
--- NOTE | 2022-02-08 12:18 | NUR ---
CHART REVIEWED AND REPORT RECEIVED, CARE OF PT ASSUMED FROM OTHER RN. PT TO THE SHOWER AT THIS TIME WITH PVC LOADER.
--- NOTE | 2022-02-08 12:24 | NUR ---
PT BACK TO THE BED AFTER SHOWER REMINDED TO ELEVATE LE. PERSONAL CARES DONE. PT DENIES FURTHER NEEDS
[2022-02-08] MEDS ORDERED: PEPCID AC20 MG PO (12:53)
--- NOTE | 2022-02-08 13:08 | NUR ---
DR HAHN AGREES THIS WELL TESTING OPERATOR CAN DRESS LOWER LEG WOUNDS. AFTER PT SHOWER ADAPTIC APPLIED THEN GAUZE PAD AND KELEX. PT RESTING EYES CLOSED DENIES FURTHER NEED
--- NOTE | 2022-02-08 14:55 | NUR ---
PATIENT GIVEN 1500 GABAPENTIN. PATIENT IS SITTING AT BEDSIDE, AND DENIES OTHER NEEDS AT THIS TIME.
--- NOTE | 2022-02-08 15:13 | NUR ---
PT SITTING UP ON EDGE OF BED, AGREES SHE IS COMFORTABLE. FRESH H20 TO BEDSIDE CALL LIGHT IN REACH. DENIES OTHER NEEDS
--- NOTE | 2022-02-08 15:40 | NUR ---
medications reconciled using pharmacy records, PCP chart notes and patient interview
[2022-02-08] MEDS ORDERED: MELATONIN3 MG PO (15:58)
--- NOTE | 2022-02-08 17:23 | NUR ---
PT SITTING ON THE EDGE OF THE WITH EVENING MEAL DENIES NEEDS OF
--- NOTE | 2022-02-08 18:10 | NUR ---
PT ITCHING AROUND IV SITE WHERE VANCO IS INFUSING, SITE HAS GOOD BLOOD RETURN AND IS WORKING FINE. SWITCHED IV INFUSION TO LEFT ARM AND SLOWED INFUSION TO 160 ML/HR. REPORTED TO DR HAHN
--- NOTE | 2022-02-08 18:28 | NUR ---
ABX INFUSING WITHOUT DIFFICULTY, PT DENIES ANY FURTHER ITCHING.
--- NOTE | 2022-02-08 19:18 | NUR ---
REPORT RECEIVED FROM DAY SHIFT RN. PT LYING IN BED ALERT AND ORIENTED. DENIES NEEDS. WHITE BOARD UPDATED. CALL LIGHT IN REACH.
--- NOTE | 2022-02-08 21:11 | NUR ---
EVENING ASSESSMENT COMPLETE. SCHEDULED MEDS ADMIN PER EMAR. PRN FOR 09/20 RLE PAIN ADMIN. PT UP TO BSC WITH FWW AND PIVOT TO VOID 800 ML YELLOW URINE. STAFF ASSIST WITH JEREMY CARE. BACK TO BED. GAIT STEADY. RLE ELEVATED ON PILLOWS. DRESSING CDI. VS AND I&O COMPLETE. PT DENIES QUESTIONS OR CONCERNS. CALL LIGHT IN REACH.
--- NOTE | 2022-02-08 22:16 | NUR ---
CALL LIGHT ANSWERED. PT UP TO BSC WITH FWW AND SBA TO VOID. STAFF ASSIST WITH JEREMY CARE. BACK TO BED, DIMITRIS WELL. GAIT SETADY. PT SITTING ON SIDE OF BED. REPORTS "THROBBING" 6/10 PAIN IN RLE. PRN FOR PAIN ADMIN PER REQUEST. NO FURTHER NEEDS. CALL LIGHT IN REACH.
--- NOTE | 2022-02-09 00:45 | NUR ---
PATIENT CALLED TO USE THE BATHROOM. SBA TO BEDSIDE COMMODE USING WALKER. PATIENT IS BACK SITTING AT THE EDGE OF THE BED. DENIES ANY FURTHER CARE NEEDS AT THIS TIME.
--- NOTE | 2022-02-09 03:28 | NUR ---
PT RESTING IN BED WITH EYES CLOSED. RESPIRATIONS EVEN. CALL LIGHT IN REACH.
--- NOTE | 2022-02-09 04:07 | NUR ---
CALL LIGHT ANSWERED. PT UP TO BSC WITH FWW AND SBA TO VOID. STAFF ASSIST WITH JEREMY CARE. BACK TO BED, DIMITRIS WELL. DRESSING ON RLE LOOSE WITH OLD DRAINAGE. RLE WRAPPED WITH KERLIX AND NON ADHERENT PADS OVER OPEN BLISTERS. BACK TO BED WITH RLE ELEVATED ON PILLOWS. FRESH WATER PROVIDED. NO FURTHER NEEDS.
--- NOTE | 2022-02-09 06:39 | NUR ---
PT UP TO BSC TO VOID WITH FWW AND SBA. GAIT STEADY. STAFF ASSIST WITH JEREMY CARE. DAILY WEIGHT OBTAINED. PT BACK TO BED. VS AND I&O COMPLETE. RLE ELEVATED ON PILLOWS. DRESSING CDI. NO FURTHER NEEDS.
--- NOTE | 2022-02-09 08:46 | NUR ---
PATIENT HAVING 7/10 PAIN IN HER RIGHT LEG AND PO PAIN MEDICATION GIVEN ALONG WITH OTHER SCHEDULED MEDS. PATIENT'S RIGHT LEG DRESSING COMING OFF SO THIS RN REPLACED A NEW RIGHT LEG DRESSING. NONADHERING PADS/ABDS/KERLIX/COBAN. LIGHT SEROSANGUINOUS DRAINAGE NOTED FROM WOUNDS. CALL LIGHT IN REACH. PATIENT EATING BREAKFAST AND TALKING ON THE PHONE AND DENIES ANY OTHER CARE NEEDS AT THIS TIME.
--- NOTE | 2022-02-09 09:49 | NUR ---
PATIENT SAYS HER PAIN IS DOWN TO 4/10 AND SHE FEELING COMFORTABLE AT THIS TIME. CALL [facility] IN REACH AND PATIENT HAS NO OTHER CARE NEEDS AT THIS TIME.
--- NOTE | 2022-02-09 11:30 | NUR ---
PATIENT CONTINUES TO SIT ON THE EDGE OF HER BED WATCHING TV. PATIENT DENIES PAIN AND ANY OTHER CARE NEEDS AT THIS TIME. CALL LIGHT IN REACH.
--- NOTE | 2022-02-09 14:15 | NUR ---
AFTERNOON ASSESSMENT COMPLETE AND RIGHT ARM IV NO LONGER PATENT AND PULLED AND LEFT ARM IV SLUGGISH TO FLUSH. HARDIK SILVA FROM CCU HAS COME OVER TO TRY AND START ANOTHER IV FOR US TO USE. CALL LIGHT IN REACH.
--- NOTE | 2022-02-09 14:34 | NUR ---
HARDIK SILVA ABLE TO START AN UPPER LEFT ARM 20G IV. WHICH HAS NOW BEEN CHARTED. ANU BOYLE IS HELPING PATIENT WITH COMMODE AT THIS TIME. CALL LIGHT IN REACH.
--- NOTE | 2022-02-09 14:55 | NUR ---
PATIENT'S RIGHT LEG PAIN NOW 6/10 AND REQUESTED HER DILAUDID TABLET WITH HER NEURONTIN WHICH WAS GIVEN. PATIENT HAD NO OTHER CARE NEEDS AT THIS TIME. CALL LIGHT IN REACH.
--- NOTE | 2022-02-09 16:01 | NUR ---
PATIENT SLEEPING QUIETLY ON HER RIGHT SIDE, EYES CLOSED, RESPIRATIONS ARE REGULAR AND EVEN, AND CALL LIGHT IS IN REACH. PATIENT HAS NO NURSE CARE NEEDS AT THIS TIME.
--- NOTE | 2022-02-09 16:30 | NUR ---
Checked with pt and she denies needs. States she is getting IV antibiotics and pain meds. She denies other needs.
--- NOTE | 2022-02-09 16:57 | NUR ---
PATIENT HAS NO C/O PAIN AT THIS TIME, SLIDING SCALE INSULIN COVERAGE GIVEN, AND IV ANTIBIOTIC UP AND RUNNING WNL. PATIENT UP TO THE BEDSIDE COMMODE AND WILL CALL WHEN SHE IS OFF THE TOILET. CALL LIGHT IN REACH.
--- NOTE | 2022-02-09 18:21 | NUR ---
PATIENT'S ANTIBIOTIC ALMOST DONE RUNNING AND HAS BEEN WNL SO FAR. PATIENT HAS NO OTHER CARE NEEDS FROM THIS RN AT THIS TIME. CALL LIGHT IN REACH.
--- NOTE | 2022-02-09 19:10 | NUR ---
REPORT RECEIVED FROM DAY SHIFT RN. PT SITTING ON SIDE OF BED TALKING ON PHONE. DENIES NEEDS. WHITE BOARD UPDATED. CALL LIGHT IN REACH.
--- NOTE | 2022-02-09 21:38 | NUR ---
PT UP TO BSC WITH FWW AND SBA TO VOID. STAFF ASSIST WITH JEREMY CARE. BACK TO BED. GAIT STEADY. VS AND I&O COMPLETE. PT REPORTS RLE PAIN 08/21. PRN FOR PAIN ADMIN PER EMAR. EVENING ASSESSMENT COMPLETE. SCHEDULED MEDS ADMIN PER EMAR. RLE DRESSING CHANGED. REDNESS WITHIN OUTLINE. IV IN LEFT AC DC'D PER PT REQUEST. TIP INTACT. NO FURTHER NEEDS AT THIS TIME. CALL LIGHTI N REACH.
--- NOTE | 2022-02-09 23:07 | NUR ---
PT REPORTS RLE PAIN 08/21. PRN FOR PAIN ADMIN PER EMAR. ASSISTED PT TO REPOSITION FOR COMFORT. RLE ELEVATED ON PILLOWS. NO FURTHER NEEDS.
--- NOTE | 2022-02-10 00:45 | NUR ---
PT RESTING IN BED WITH EYES CLOSED. RLE ELEVATED ON PILLOWS. RESPIRATIONS EVEN. CALL LIGHT IN REACH.
--- NOTE | 2022-02-10 02:16 | NUR ---
PT RESTING IN BED ON LEFT SIDE WITH EYES CLOSED. RESPIRATIONS EVEN. CALL LIGHT IN REACH.
--- NOTE | 2022-02-10 04:29 | NUR ---
CALL LIGHT ANSWERED. 1PA TO USE WALKER TO PIVOT TO BSC FOR VOID. pt UNABLE TO WIPE SELF, STATES SHE NORMALLY JUST PULLS UP PANTS SO SHE DOESN'T FALL ON HER FACE OR HER NIECE HELPS HER. RN ASSISTS. pt BACK IN BED. ENCOURAGED TO LIE DOWN AND ELEVATE LEG, pt SITTING UP AT SIDE OF BED. CALL LIGHT IN REACH.
--- NOTE | 2022-02-10 05:31 | NUR ---
PT SITTING ON SIDE OF BED. REPORTS RLE PAIN 08/21. PRN FOR PAIN ADMIN PER EMAR. RLE DRESSING WITH OLD DRAINAGE. NEW DRESSING PLACED. VS AND I&O COMPLETE. DAILY WEIGHT OBTAINED. PT BACK TO BED. RLE ELEVATED ON PILLOWS. PT DENIES FURTHER NEEDS. LIGHTS OUT. CALL LIGHT IN REACH.
--- NOTE | 2022-02-10 08:30 | NUR ---
Admin tylenol 650mg for reports of headache and RLE pain.
--- NOTE | 2022-02-10 10:33 | NUR ---
Dilaudid 2mg po admin at this time for reports of 6/10 RLE pain. Patient provided with fresh water. No further needs, personal supplies and call light within reach.
--- NOTE | 2022-02-10 13:52 | NUR ---
PATIENT IS SLEEPING. PLAN OF CARE REMAINS THE SAME.
--- NOTE | 2022-02-10 14:40 | NUR ---
Tylenol 650mg po admin for reports of 5/10 right leg pain. Patient up to void, 800ml clear yellow urine noted. Patient back to bed. No further needs, call light within reach.
--- NOTE | 2022-02-10 16:56 | NUR ---
RLE dressing replaced per Dr. Teran's request. Non adherent dressing with kerlix wrapped placed over wound site of RLE.
--- NOTE | 2022-02-10 17:52 | NUR ---
Dilaudid 1mg po admin for reports of 6/10 RLE pain.
--- NOTE | 2022-02-10 19:33 | NUR ---
Received report from offgoing shift, hourly rounding initiated.
--- NOTE | 2022-02-10 21:36 | NUR ---
HOURLY ROUNDING, MEDICATION ADMINISTRATION, VS,
--- NOTE | 2022-02-11 06:16 | NUR ---
Pt calm and cooperative, able to make needs known. Pt spent most of the night up on the side of her bed, urinated appropriately (1800mL). Pt used call light appropriately, had medicatoin for pain x1.
--- NOTE | 2022-02-11 08:10 | NUR ---
PT CALL LIGHT ANSWERED. PT NEEDS TO USE BSC. PT ASSISTED TO BSC BY DUSTINW DONITA. PT CLEANED UP AND ASSISTED BACK TO BED. COFFEE GIVEN TO PT PER PTS REQ.
--- NOTE | 2022-02-11 09:58 | NUR ---
PT is laying in bed after breakfast. Vitals and I/O have been documented. Fresh ice water was provided to the PT. PT has no other needs at this time, call light within reach.
--- NOTE | 2022-02-11 10:55 | NUR ---
PT CALL LIGHT ANSWERED. PT REQ TO USE BSC. PT ASSISTED TO BSC BY FWW SBA. PT VOIDED. PT ASSISTED BACK TO BED USING FWW BY SBA. NO FURTHER NEEDS. CALL LIGHT WITHIN REACH.
--- NOTE | 2022-02-11 12:08 | NUR ---
Patient sitting up edge of bed on her phone, no distress. Patient reports improved RLE pain. Patient has declined pain medication. Personal supplies and call light within reach.
--- NOTE | 2022-02-11 12:19 | NUR ---
Admin tylenol 650mg po at this time for reports of 6/10 RLE pain. Patient sitting up eating at this time. Personal supplies and call light within reach.
--- NOTE | 2022-02-11 12:52 | NUR ---
Assisted PT to BSC then back into bed. Fresh ice water provided to PT. Assisted PT with brushing her hair. PT has no other needs at this time, call light is within reach.
--- NOTE | 2022-02-11 14:25 | NUR ---
PT CALL LIGHT ANSWERED. PT REQ TO USE BSC. PT ASSISTED TO BSC USING FWW. PT ASSISTED BACK TO BED USING FWW. NO FURTHER NEEDS. CALL LIGHT WITHIN REACH.
--- NOTE | 2022-02-11 14:37 | NUR ---
PT REQ COFFEE. COFFEE GIVEN. NO FURTHER NEEDS. CALL LIGHT WITHIN REACH.
--- NOTE | 2022-02-11 14:39 | NUR ---
Patient sitting up on edge of bed, no distress. Patient reports RLE pain is tolerable, 6/10. Dressing to RLE wound site changed. Non adherent dressing placed per Dr. Teran's verbal order. Patient has no needs at this time, personal supplies and call light within reach.
--- NOTE | 2022-02-11 14:40 | NUR ---
Spoke briefly with Maria D, she denies needs. No change in plan for CM.
--- NOTE | 2022-02-11 19:21 | NUR ---
Hourly rounding initiated - received report from offgoing shift
--- NOTE | 2022-02-11 20:15 | NUR ---
HOURLY ROUNDING, VS, MEDICATION ADMINISTRATION, ASSESSMENT COMPLETED.
--- NOTE | 2022-02-11 22:23 | NUR ---
ASSISTED PT W 1PA AND FWW TO BEDSIDE COMMODE. SMEAR IN DEPENDS, NEW DEPENDS PROVIDED. 400 ML URINE OUTPUT. JEREMY CARE PERFORMED. PT NOW SITTING AT BEDSIDE. PT REPORTS 7/10 PAIN IN RT. LEG, PER AMARIS, PRN TYLENOL GIVEN. CALL LIGHT WITHIN REACH, NO FURTHER NEEDS AT THIS TIME.
--- NOTE | 2022-02-11 23:11 | NUR ---
HOURLY ROUNDING, PT STATES TYLENOL WORKING
--- NOTE | 2022-02-11 23:51 | NUR ---
hourly rounding completed
--- NOTE | 2022-02-12 03:22 | NUR ---
HOURLY ROUNDING COMPLETED. ASSISTED TO COMMODE, JEREMY CARE COMPLETED
--- NOTE | 2022-02-12 05:18 | NUR ---
HOURLY ROUNDING COMPLETED
--- NOTE | 2022-02-12 06:33 | NUR ---
Pt was up calm and cooperative, able to make needs known. Pt was up most of the night watching TV and playing games on smartphone. Pt received 1 dose of pain medication to good effect. Pt was able to get some sleep, had good urine output, daily weight showed 1kg drop in weight. Pt was medication compliant, no further concerns.
--- NOTE | 2022-02-12 07:20 | NUR ---
recieved shift report. pt resting in bed, eyes closed, breathing even and unlabored. call light within reach.
--- NOTE | 2022-02-12 08:22 | NUR ---
MORNING ASSESSMENT COMPLETE. PT DENIES PAIN. LEFT LEG REMAINS COVERED WITH A BANDAGE, CLEAN, DRY, INTACT. DENIES FURTHER NEEDS AT THIS TIME. CALL LIGHT WITHIN REACH.
--- NOTE | 2022-02-12 08:43 | NUR ---
Patient resting in bed with eyes closed. Patient rates RLE pain 0/10. Patient tolerates prescribed medications. Patient currently with breakfast and sitting at edge of bed with bed alarm on. Patient's personal supplies and call light within reach. Has no other needs at this time.
--- NOTE | 2022-02-12 13:00 | NUR ---
SITTING AT BEDSIDE EATING LUNCH. PLAN OF CARE REMAINS THE SAME. WILL GO HOME WHEN DISCHARGED.
--- NOTE | 2022-02-12 13:50 | NUR ---
PT CALL LIGHT ANSWERED. PT REQ TO USE BSC. PT ASSISTED TO BSC USING FWW SBA. PT CLEANED AFTER HAVING A XL BOWEL MOVEMENT. PT BACK TO BED. NO FURTHER NEEDS. CALL LIGHT WITHIN REACH.
--- NOTE | 2022-02-12 14:27 | NUR ---
PATIENT IN BED AFTER MEAL. VITALS AND I/O'S COMPLETED. ICE WATER GIVEN. PT HAS NO OTHER NEEDS AT THIS TIME. CALL LIGHT WITHIN REACH.
--- NOTE | 2022-02-12 14:58 | NUR ---
WOUND NURSE: ORDERS FOR WOUND NURSE CONSULT PLACED ON . THIS NURSE TO BEDSIDE FOR CONSULT. PICTURES ALREADY PLACED IN CHART. PT WITH RLE CELLULITIS WITH WHEEPING BLISTERED PRESENT. PT CURRENTLY HAS ADAPTIC AND GAUZE. THERE ARE THREE WHEEPING AREAS SEEN IN PICTURES. ONE ON LATERAL ASPECT OF THE MID CALF, ONE MEDIAL GRAY, AND ONE ON UPPER GRAY AREA. PRESENT ALSO ARE SOME SCABBED OVER AREAS. DRAIANGE IS SEROSANG. CELLULITIS IS OUTLINED. RECOMMEND WASHING WITH SOAP AND WATER OR WOUND CLEANSER. APPLY XEROFORM TO OPEN WOUNDS AND WRAP WITH KERLEX AND COBAN TO SECURE . CHANGE DRESSING ONCE A DAY AND PRN FOR EXCESSIVE DRAINAGE. LOTIONED APPLIED TO REST OF LEG. KEEP LEG ELEVATED MUCH POSSIBLE. LEAVE SCABS INTACT AND DRY. DR ARIZA NOTIFIED AND AGREEABLE.
--- NOTE | 2022-02-12 15:40 | NUR ---
AFTERNOON ASSESSMENT COMPLETE. NO NEW CHANGES SINCE MORNING ASSESSMENT. DENIES PAIN. DRESSING TO LEFT LEG CLEAN, DRY, INTACT. CALL LIGHT WITHIN REACH.
--- NOTE | 2022-02-12 19:20 | NUR ---
Hourly rounding initiated, received report from offgoing shift.
--- NOTE | 2022-02-12 21:40 | NUR ---
hourly rounding - pt provided with assistance to toilet x3, provided with assistance in bed when she coughed and was minorly incontinent of bowel. Pt given PRN seroquel to aid with anxiety/sleep. Pt given acetaminophen for pain in abdomen. Will continue to monitor and reassess
--- NOTE | 2022-02-12 21:44 | NUR ---
Hourly rounding - pt medication adminsitered, [id number]. Pt elevating leg appropriately per MD recommendation.
--- NOTE | 2022-02-13 04:51 | NUR ---
hourly rounding completed.
--- NOTE | 2022-02-13 07:20 | NUR ---
recieved shift report. pt laying in bed. call light within reach
--- NOTE | 2022-02-13 08:37 | NUR ---
PATIENT SITTING UP THIS AM IN BED. AM CARE COMPLETED. COFFEE AND ICE WATER GIVEN. PT REQUESTED SOMETHING FOR PAIN, NURSE NOTIFIED. ACU CHECK COMPLETED AND DOCUMENTED. PT HAS NO OTHER NEEDS AT THIS TIME, CALL LIGHT WITHIN REACH.
--- NOTE | 2022-02-13 09:12 | NUR ---
MORNING ASSESSMENT COMPLETE. DENIES PAIN. DRESSING IS CLEAN DRY AND INTACT. RIGHT LOWER EXTREMITY IS ELEVATED. DENIES FURTHER NEEDS AT THIS TIME. CALL LIGHT WITHIN REACH.
--- NOTE | 2022-02-13 09:57 | NUR ---
PATIENT IN CHAIR AFTER MEAL. VITALS AND I/O'S COMPLETED. PT HAS NO OTHER NEEDS AT THIS TIME. CALL LIGHT WITHIN REACH.
--- NOTE | 2022-02-13 12:04 | NUR ---
ROUNDED WITH DR ARIZA. PLAN OF CARE DISCUSSED. LEG WOUND EVALUATED. DRESSING CHANGE COMPLETED. WOUND CLEANSER USED TO WASH AND DRESSING APPLIED PER ORDER. PT TOLERATED WELL.
--- NOTE | 2022-02-13 12:04 | NUR ---
PT STARTED 1800 ML FLUID RESTRICTION AT THIS TIME.
--- NOTE | 2022-02-13 13:57 | NUR ---
PT COMPLAINED OF ARTHRITIS PAIN IN BOTH HANDS. PT STATES SHE USES A CREAM AT HOME. TO NOTIFED. TELEPHONE ORDER GIVEN TO ORDER ASPERCREME PRN.
--- NOTE | 2022-02-13 13:59 | NUR ---
PATIENT IN CHAIR AFTER MEAL. VITALS AND I/O'S COMPLETED. PATIENT HAS NO OTHER NEEDS AT THIS TIME. CALL LIGHT WITHIN REACH.
--- NOTE | 2022-02-13 14:15 | NUR ---
PT IN RECLINER, LEFT LEG ELEVATED. DENIES PAIN. CALL LIGHT WITHIN REACH.
--- NOTE | 2022-02-13 15:09 | NUR ---
AFTERNOON ASSESSMENT COMPLETE. PT DENIES PAIN AT THIS TIME. UP IN CHAIR, RIGHT LEG ELEVATED. DRESSING IS CLEAN, DRY, INTACT. CALL LIGHT WITHIN REACH.
--- NOTE | 2022-02-13 18:27 | NUR ---
PATIENT SITTING UP IN BED AFTER MEAL. VITALS AND I/O'S COMPLETED. ALL WATER ALLOWED WITH RESTRICTION GIVEN. PT HAS NO OTHER NEEDS AT THIS TIME. CALL LIGHT WITHIN REACH.
--- NOTE | 2022-02-13 19:42 | NUR ---
REPORT RECEIVED FROM DAY SHIFT RN. PT LYING IN BED ALERT AND ORIENTED. DENIES NEEDS. WHITE BOARD UPDATED. CALL LIGHT IN REACH.
--- NOTE | 2022-02-13 21:15 | NUR ---
EVENING ASSESSMENT COMPLETE. SCHEDULED MEDS ADMIN PER EMAR. PT DENIES PAIN OR NAUSEA. RLE DRESSING CDI. UP TO BSC WITH FWW AND SBA TO VOID. STAFF ASSIST WITH JEREMY CARE. BACK TO BED, DIMITRIS WELL. PT COMPLIANT WITH FLUID RESTRICTION. DENIES QUESTIONS OR CONCERNS. CALL LIGHT IN REACH.
--- NOTE | 2022-02-13 23:05 | NUR ---
PT RESTING IN BED ON RIGHT SIDE WITH EYES CLOSED. RESPIRATIONS EVEN. RLE ELEVATED. CALL LIGHT IN REACH.
--- NOTE | 2022-02-14 00:51 | NUR ---
CALL LIGHT ANSWERED. PT UP TO BSC WITH FWW AND SBA. GAIT STEADY. STAFF ASSIST WITH JEREMY CARE. PT SITTING ON SIDE OF BED WITH RIGHT LEG ELEVATED. PT SCRATCHING AT LEFT SHOULDER IV. REPORTS BEING MILDLY ALLERGIC TO TAPE ADHESIVE. TAPE REMOVED AND DRESSING CHANGED. NO FURTHER NEEDS AT THIS TIME. CALL LIGHT IN REACH.
--- NOTE | 2022-02-14 02:31 | NUR ---
CALL LIGHT ANSWERED. PT REPORTS BACK/SHOULDER PAIN 08/21. PRN FOR PAIN ADMIN PER EMAR. NO FURTHER NEEDS.
--- NOTE | 2022-02-14 04:39 | NUR ---
PT RESTING IN BED WITH EYES CLOSED. RESPIRATIONS EVEN. CALL LIGHT IN REACH.
--- NOTE | 2022-02-14 05:57 | NUR ---
PT UP TO BSC WITH FWW AND SBA TO VOID. STAFF ASSIST WITH JEREMY CARE. BACK TO BED. VS AND I&O OBTAINED. DAILY WEIGHT OBTAINED. PT SITTING ON SIDE OF BED. LAB IN ROOM FOR MORNING DRAW. CALL LIGHT IN REACH.
--- NOTE | 2022-02-14 07:21 | NUR ---
RECIEVED SHIFT REPORT. PT AWAKE IN BED, DENIES PAIN. CALL LIGHT WITHIN REACH.
--- NOTE | 2022-02-14 10:06 | NUR ---
MORNING ASSESSMENT COMPLETE. DENIES PAIN. RIGHT LOWER EXT DRESSING CLEAN DRY AND INTACT. LEG ELEVATED. DENIES FURTHER NEEDS AT THIS TIME. CALL LIGHT WITHIN REACH.
[2022-02-14] MEDS ORDERED: DOXYCYCLINE HY100 MG PO (10:42)
--- NOTE | 2022-02-14 10:55 | NUR ---
WOUND DRESSING CHANGE COMPLETED. WOUND CLEANSED WITH WOUND CLEANSER, DRESSING APPLIED WITH XEROFORM, GAUZE ROLL AND COBAN. PT TOLERATED WELL. WOUND DRESSING SUPPLIES PROVIDED FOR HOME DRESSING CHANGES REQUESTED BY DR ARIZA. EDUCATION ADN DEMOSTRATION OF DRESSING CHANGES PROVIDED. PT VERBALIZED UNDERSTANDING.
== END 2022-02-14 13:00 | disposition home or self-care (01) | DRG 637 ==
LOC: ED 14:41 → MS 18:01
PROVIDERS: ADMIT Internal Medicine; ATTEND Internal Medicine
DX: E11.628 Type 2 diabetes mellitus with other skin complications (principal); I50.43 Acute on chronic combined systolic (congestive) and diastolic (congestive) heart failure; L03.115 Cellulitis of right lower limb; I13.0 Hypertensive heart and chronic kidney disease with heart failure and stage 1 through stage 4 chronic kidney disease, or unspecified chronic kidney disease; N18.32 Chronic kidney disease, stage 3b; E78.5 Hyperlipidemia, unspecified; E11.22 Type 2 diabetes mellitus with diabetic chronic kidney disease; G47.33 Obstructive sleep apnea (adult) (pediatric); Z88.5 Allergy status to narcotic agent; Z88.0 Allergy status to penicillin; Z88.2 Allergy status to sulfonamides; Z88.8 Allergy status to other drugs, medicaments and biological substances; Z88.1 Allergy status to other antibiotic agents; E11.40 Type 2 diabetes mellitus with diabetic neuropathy, unspecified; J44.9 Chronic obstructive pulmonary disease, unspecified; Z90.710 Acquired absence of both cervix and uterus; Z87.891 Personal history of nicotine dependence; Z90.49 Acquired absence of other specified parts of digestive tract; Z98.890 Other specified postprocedural states; Z89.512 Acquired absence of left leg below knee; Z20.822 Contact with and (suspected) exposure to COVID-19; E11.65 Type 2 diabetes mellitus with hyperglycemia
CPT/HCPCS: 36415; 80048; 80053; 80202; 83036; 83735; 85025; 86140; A9270; C9803; J1650; J1815; J1885; J1940; J1956; J3370; J7060; Q0163; U0003

== ENCOUNTER 2022-04-02 17:16 | Emergency (ER) | payer OTHER ==
[~2022-04-02] VITALS: Ht 170.2 cm; Wt 134.6 kg
[~2022-04-02 17:16] MED LIST changes: +DICLOFENAC SOD100 G1 TOP; +JARDIANCE25 MG PO; +MELATONIN3 MG PO; +PEPCID AC20 MG PO
--- OUTSIDE RECORDS SUMMARY | 2022-04-02 17:18 | XMS ---
PreManage Notification: LINH PEDRAZA Security [employer] Selector Events No recent Security Events currently on file CRITERIA MET - [facility] - Has Care Guidelines CARE PROVIDERS MILTON DASILVA [facility] 05/01/2018-Current PHONE: Unknown JOHN ARIZA Internal Medicine 07/10/2020-Current PHONE: Unknown Rossi Hagen Clinical Auditor/Geochemist 02/11/2022-Current PHONE: [phone] Isabela has no Care Guidelines for this patient. Care History Medical/Surgical 02/24/2021 [facility] Patient sent to ER by PCP Dr. Ariza. Follow up visit on 02/27/2021. 07/10/2020 [facility] - Patient is currently established with [facility]. If patient is seen in the ED during business hours. Please contact CHWs at [facility]. Care Recommendation: If this patient has [...] clinical judgment when providing care. 06/06/2018 [facility] - PATIENT PCP HAS MADE A REFERRAL TO [facility]- PATIENT STARTS PULMONARY REHAB ON 06/20/18. E.D. VISIT COUNT (12 MO.) 3 [facility] TOTAL 3 NOTE: Visits indicate total known visits. ED/UCC VISIT TRACKING (12 MO.) 04/02/2022 17:17 [facility] TYPE: Emergency COMPLAINT: - VOMITING 02/07/2022 14:42 [facility] TYPE: Emergency COMPLAINT: - LOWER R LEG PAIN 12/03/2021 20:18 [facility] TYPE: Emergency COMPLAINT: - NAUSEA, VOMITING DIAGNOSES: - Type 2 diabetes mellitus with diabetic chronic kidney disease - Dehydration - Allergy status to other drugs, medicaments and biological substances - Type 2 diabetes mellitus with diabetic neuropathy, unspecified - Nausea with vomiting, unspecified - Hypertensive heart and chronic kidney disease with heart failure and stage 1 through stage 4 chronic kidney disease, or unspecified chronic kidney disease - Allergy status to sulfonamides - Allergy status to other antibiotic agents - Allergy status to penicillin - Allergy status to narcotic agent - Heart failure, unspecified - Other chaser helper (current) drug therapy - Personal history of nicotine dependence - 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 - Hyperlipidemia, unspecified - Chronic kidney disease, stage 3 unspecified - Chronic obstructive pulmonary disease, unspecified - Contact with and (suspected) exposure to COVID-19 - Cellulitis of right lower limb - Hypokalemia INPATIENT VISIT TRACKING (12 MO.) 02/07/2022 18:01 [facility] TYPE: Medical Surgical COMPLAINT: - RIGHT LE CELLLULITIS, DIABETIC WOUND DIAGNOSES: - Hyperlipidemia, unspecified - Type 2 diabetes mellitus with diabetic chronic kidney disease - Acquired absence of both cervix and uterus - Allergy status to other antibiotic agents - Allergy status to other drugs, medicaments and biological substances - Acute on chronic combined systolic (congestive) and diastolic (congestive) heart failure - Type 2 diabetes mellitus with hyperglycemia - Chronic obstructive pulmonary disease, unspecified - Chronic obstructive pulmonary disease, unspecified - Allergy status to sulfonamides - Allergy status to penicillin - Acquired absence of other specified parts of digestive tract - Acquired absence of left leg below knee - Other specified postprocedural states - Type 2 diabetes mellitus with diabetic neuropathy, unspecified - Contact with and (suspected) exposure to COVID-19 - Chronic kidney disease, stage 3b - Allergy status to other antibiotic agents - Personal history of nicotine dependence - Other specified postprocedural states - Obstructive sleep apnea (adult) (pediatric) - Acute on chronic combined systolic (congestive) and diastolic (congestive) heart failure - Type 2 diabetes mellitus with diabetic neuropathy, unspecified - Cellulitis of right lower limb - Hypertensive heart and chronic kidney disease with heart failure and stage 1 through stage 4 chronic kidney disease, or unspecified chronic kidney disease - Personal history of nicotine dependence - Contact with and (suspected) exposure to COVID-19 - Allergy status to sulfonamides - Allergy status to other drugs, medicaments and biological substances - Type 2 diabetes mellitus with other skin complications - Chronic kidney disease, stage 3b - Allergy status to narcotic agent - Type 2 diabetes mellitus with hyperglycemia - Allergy status to penicillin - Hypertensive heart and chronic kidney disease with heart failure and stage 1 through stage 4 chronic kidney disease, or unspecified chronic kidney disease - Acquired absence of left leg below knee - Acquired absence of both cervix and uterus - Obstructive sleep apnea (adult) (pediatric) - Allergy status to narcotic agent - Type 2 diabetes mellitus with diabetic chronic kidney disease - Acquired absence of other specified parts of digestive tract - Type 2 diabetes mellitus with other skin complications - Hyperlipidemia, unspecified 04/30/2021 09:[address] 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 - Peripheral vascular disease, unspecified - Bipolar disorder, unspecified - Allergy status to narcotic agent - Obstructive sleep apnea (adult) (pediatric) - Hyperlipidemia, unspecified - Bipolar disorder, unspecified - Type 2 diabetes mellitus with diabetic peripheral angiopathy without gangrene - Peripheral vascular disease, unspecified - forming machine upkeep mechanic (current) use of antithrombotics/antiplatelets - Acquired absence of left leg above knee - Chronic pain syndrome - Acute on chronic diastolic (congestive) heart failure - Atherosclerotic heart disease of [place] coronary artery without angina pectoris - Hypertensive heart disease with heart failure - Acute on chronic diastolic (congestive) heart failure - Type 2 diabetes mellitus with diabetic peripheral angiopathy without gangrene - Other chaser helper (current) drug therapy - Venous insufficiency (chronic) (peripheral) - Chronic pain syndrome - Allergy status to other antibiotic agents - Allergy status to sulfonamides - Hyperlipidemia, unspecified - 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 - Patient's noncompliance with dietary regimen - Allergy status to penicillin - Acquired absence of left leg above knee - Allergy status to other antibiotic agents - Allergy status to narcotic agent - Unspecified chronic bronchitis - Patient's noncompliance with dietary regimen - Chronic obstructive pulmonary disease, unspecified - Morbid (severe) obesity with alveolar hypoventilation - Allergy status to penicillin - Atherosclerotic heart disease of [place] coronary artery without angina pectoris - Contact with and (suspected) exposure to COVID-19 - Other intermediate (current) drug therapy [email or web address]
[2022-04-02] MEDS ORDERED: REGLAN10 MG PO (19:27)
[2022-04-02] MEDS ORDERED: ONDANSETRON ODT8 MG PO (19:29)
== END 2022-04-02 21:17 | disposition home or self-care (01) ==
LOC: ED 17:16
DX: E11.43 Type 2 diabetes mellitus with diabetic autonomic (poly)neuropathy (principal); K31.84 Gastroparesis; E11.40 Type 2 diabetes mellitus with diabetic neuropathy, unspecified; J44.9 Chronic obstructive pulmonary disease, unspecified; I13.0 Hypertensive heart and chronic kidney disease with heart failure and stage 1 through stage 4 chronic kidney disease, or unspecified chronic kidney disease; I50.9 Heart failure, unspecified; N18.30 Chronic kidney disease, stage 3 unspecified; Z87.891 Personal history of nicotine dependence; Z88.5 Allergy status to narcotic agent; Z88.0 Allergy status to penicillin; Z88.8 Allergy status to other drugs, medicaments and biological substances; Z88.1 Allergy status to other antibiotic agents; Z88.2 Allergy status to sulfonamides; Z79.899 Other long term (current) drug therapy; Z79.4 Long term (current) use of insulin
CPT/HCPCS: 36415; 80053; 83735; 85025; 96374; 96375; 99284-25; J2405; J2765; J7030; J7040

== ENCOUNTER 2022-04-30 18:22 | Emergency (ER) | payer OTHER ==
[~2022-04-30] VITALS: Ht 170.2 cm; Wt 134.6 kg
--- OUTSIDE RECORDS SUMMARY | 2022-04-30 18:26 | XMS ---
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 Care History Medical/Surgical 02/24/2021 [facility] Patient sent to ER by PCP Dr. Ariza. Follow up visit on 02/27/2021. 07/10/2020 [facility] - Patient is currently established with [facility]. If patient is seen in the ED during business hours. Please contact CHWs at [facility]. Care Recommendation: If this patient has had 5 or more Emergency Department visits in the last 12 months.\T\nbsp; Patient will require education on the scope and purpose of the ED as an acute care provider not a Primary Care Provider and should not be utilized for chronic conditions.\T\nbsp; These are guidelines and the provider should exercise clinical judgment when providing care. 06/06/2018 [facility] - PATIENT PCP HAS MADE A REFERRAL TO [facility]- PATIENT STARTS PULMONARY REHAB ON 06/20/18. E.D. VISIT COUNT (12 MO.) 4 [facility] H. TOTAL 4 NOTE: Visits indicate total known visits. ED/UCC VISIT TRACKING (12 MO.) 04/30/2022 18:23 [facility] TYPE: Emergency COMPLAINT: - ABD PAIN 04/02/2022 17:17 [facility] [place] TYPE: Emergency COMPLAINT: - VOMITING DIAGNOSES: - Allergy status to penicillin - Nausea with vomiting, unspecified - Heart failure, unspecified - Allergy status to narcotic agent - Allergy status to sulfonamides - FPC (current) use of insulin - Hypertensive heart and chronic kidney disease with heart failure and stage 1 through stage 4 chronic kidney disease, or unspecified chronic kidney disease - Gastroparesis - Chronic obstructive pulmonary disease, unspecified - Allergy status to other antibiotic agents - Personal history of nicotine dependence - Allergy status to other drugs, medicaments and biological substances - Other intermediate (current) drug therapy - Type 2 diabetes mellitus with diabetic neuropathy, unspecified - Type 2 diabetes mellitus with diabetic autonomic (poly)neuropathy - Chronic kidney disease, stage 3 unspecified 02/07/2022 14:42 [facility] [place] TYPE: Emergency COMPLAINT: - LOWER R LEG PAIN 12/03/2021 20:18 [facility] [place] TYPE: Emergency COMPLAINT: - NAUSEA, VOMITING DIAGNOSES: - Allergy status to sulfonamides - Hypertensive heart and chronic kidney disease with heart failure and stage 1 through stage 4 chronic kidney disease, or unspecified chronic kidney disease - Allergy status to other antibiotic agents - Allergy status to penicillin - Allergy status to narcotic agent - Heart failure, unspecified - Other intermediate (current) drug therapy - Personal history of nicotine dependence - Hyperlipidemia, unspecified - FPC (current) use of insulin - Chronic kidney disease, stage 3 unspecified - Contact with and (suspected) exposure to COVID-19 - Chronic obstructive pulmonary disease, unspecified - Cellulitis of right lower limb - Hypokalemia - Type 2 diabetes mellitus with diabetic chronic kidney disease - Dehydration - Type 2 diabetes mellitus with diabetic neuropathy, unspecified - Allergy status to other drugs, medicaments and biological substances - Nausea with vomiting, unspecified INPATIENT VISIT TRACKING (12 MO.) 02/07/2022 18:01 [facility] OR TYPE: Medical Surgical COMPLAINT: - RIGHT LE CELLLULITIS, DIABETIC WOUND DIAGNOSES: - Other specified postprocedural states - Acquired absence of other specified parts of digestive tract - Acquired absence of left leg below knee - Chronic kidney disease, stage 3b - Type 2 diabetes mellitus with diabetic neuropathy, unspecified - Contact with and (suspected) exposure to COVID-19 - Allergy status to other antibiotic agents - Personal history of nicotine dependence - Acute on chronic combined systolic (congestive) and diastolic (congestive) heart failure - Other specified postprocedural states - Obstructive sleep apnea (adult) (pediatric) - Type 2 diabetes mellitus with diabetic neuropathy, unspecified - Cellulitis of right lower limb - Contact with and (suspected) exposure to COVID-19 - Hypertensive heart and chronic kidney disease with heart failure and stage 1 through stage 4 chronic kidney disease, or unspecified chronic kidney disease - Personal history of nicotine dependence - Allergy status to other drugs, medicaments and biological substances - Allergy status to sulfonamides - Allergy status to narcotic agent - Type 2 diabetes mellitus with other skin complications - Chronic kidney disease, stage 3b - Hypertensive heart and chronic kidney disease with heart failure and stage 1 through stage 4 chronic kidney disease, or unspecified chronic kidney disease - Type 2 diabetes mellitus with hyperglycemia - Allergy status to penicillin - Obstructive sleep apnea (adult) (pediatric) - Acquired absence of left leg below knee - Acquired absence of both cervix and uterus - Acquired absence of other specified parts of digestive tract - Allergy status to narcotic agent - Type 2 diabetes mellitus with diabetic chronic kidney disease - Type 2 diabetes mellitus with other skin complications - Hyperlipidemia, unspecified - Acquired absence of both cervix and uterus - Hyperlipidemia, unspecified - Type 2 diabetes mellitus with diabetic chronic kidney disease - Allergy status to other antibiotic agents - Allergy status to other drugs, medicaments and biological substances - Chronic obstructive pulmonary disease, unspecified - Acute on chronic combined systolic (congestive) and diastolic (congestive) heart failure - Type 2 diabetes mellitus with hyperglycemia - Allergy status to penicillin - Chronic obstructive pulmonary disease, unspecified - Allergy status to sulfonamides 04/30/2021 09:30 [facility] OR TYPE: Medical Surgical COMPLAINT: - CONGESTIVE HEART FAILURE DIAGNOSES: - FPC (current) use of antithrombotics/antiplatelets - Type 2 diabetes mellitus with diabetic peripheral angiopathy without gangrene - Peripheral vascular disease, unspecified - Chronic pain syndrome - Acquired absence of left leg above knee - Acute on chronic diastolic (congestive) heart failure - Atherosclerotic heart disease of [place] coronary artery without angina pectoris - Type 2 diabetes mellitus with diabetic peripheral angiopathy without gangrene - Hypertensive heart disease with heart failure - Acute on chronic diastolic (congestive) heart failure - Other machine long goods helper (current) drug therapy - Venous insufficiency (chronic) (peripheral) - Allergy status to sulfonamides - Chronic pain syndrome - Allergy status to other antibiotic agents - FPC (current) use of insulin - Hyperlipidemia, unspecified - Acquired absence of left leg above knee - Patient's noncompliance with dietary regimen - Allergy status to penicillin - Allergy status to narcotic agent - Allergy status to other antibiotic agents - Chronic obstructive pulmonary disease, unspecified - Unspecified chronic bronchitis - Patient's noncompliance with dietary regimen - Atherosclerotic heart disease of [place] coronary artery without angina pectoris - Morbid (severe) obesity with alveolar hypoventilation - Allergy status to penicillin - Contact with and (suspected) exposure to COVID-19 - Other machine long goods helper (current) drug therapy - Allergy status to sulfonamides - Cellulitis of right lower limb - FPC (current) use of antithrombotics/antiplatelets - FPC (current) use of insulin - Peripheral vascular disease, unspecified - Obstructive sleep apnea (adult) (pediatric) - Bipolar disorder, unspecified - Allergy status to narcotic agent - Bipolar disorder, unspecified - Hyperlipidemia, unspecified [email or web address]
[2022-04-30] MEDS ORDERED: BENZONATATE200 MG PO (21:33)
[2022-04-30] MEDS ORDERED: K-TAB ER20 MEQ PO (21:45)
[2022-04-30] MEDS ORDERED: ONDANSETRON ODT8 MG PO (21:50)
== END 2022-04-30 22:03 | disposition home or self-care (01) ==
LOC: ED 18:22
DX: E11.43 Type 2 diabetes mellitus with diabetic autonomic (poly)neuropathy (principal); K31.84 Gastroparesis; F12.90 Cannabis use, unspecified, uncomplicated; J42 Unspecified chronic bronchitis; E87.6 Hypokalemia; E11.40 Type 2 diabetes mellitus with diabetic neuropathy, unspecified; I50.9 Heart failure, unspecified; I13.0 Hypertensive heart and chronic kidney disease with heart failure and stage 1 through stage 4 chronic kidney disease, or unspecified chronic kidney disease; N18.30 Chronic kidney disease, stage 3 unspecified; E11.22 Type 2 diabetes mellitus with diabetic chronic kidney disease; Z87.891 Personal history of nicotine dependence; Z88.5 Allergy status to narcotic agent; Z88.8 Allergy status to other drugs, medicaments and biological substances; Z88.0 Allergy status to penicillin; Z88.1 Allergy status to other antibiotic agents; Z88.2 Allergy status to sulfonamides; Z79.899 Other long term (current) drug therapy; Z79.4 Long term (current) use of insulin; Z20.822 Contact with and (suspected) exposure to COVID-19
CPT/HCPCS: 36415; 71045; 80053; 81001; 83690; 83735; 83880; 84484; 85025; 87502; 94640; 96374; 96375; 99284-25; A9270; C9803; J1790; J2765; J7121; U0003

== ENCOUNTER 2022-08-08 20:36 | Emergency (ER) | payer OTHER ==
[~2022-08-08] VITALS: Ht 170.2 cm; Wt 134.3 kg
[~2022-08-08 20:36] MED LIST changes: +BENZONATATE200 MG PO; +K-TAB ER20 MEQ PO
--- OUTSIDE RECORDS SUMMARY | 2022-08-08 20:39 | XMS ---
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 Care History Medical/Surgical 02/24/2021 [facility] Patient sent to ER by PCP Dr. Ariza. Follow up visit on 02/27/2021. 07/10/2020 [facility] - Patient is currently established with [facility]. If patient is seen in the ED during business hours. Please contact CHWs at [facility]. Care Recommendation: If this patient has had 5 or more Emergency Department visits in the last 12 months.\T\nbsp; Patient will require education on the scope and purpose of the ED as an acute care provider not a Primary Care Provider and should not be utilized for chronic conditions.\T\nbsp; These are guidelines and the provider should exercise clinical judgment when providing care. 06/06/2018 [facility] - PATIENT PCP HAS MADE A REFERRAL TO [facility]- PATIENT STARTS PULMONARY REHAB ON 06/20/18. E.D. VISIT COUNT (12 MO.) 5 [facility] H. TOTAL 5 NOTE: Visits indicate total known visits. ED/UCC VISIT TRACKING (12 MO.) 08/08/2022 20:37 [facility] OR TYPE: Emergency COMPLAINT: - ABD PAIN ALL DAY 04/30/2022 18:23 [facility] OR TYPE: Emergency COMPLAINT: - ABD PAIN DIAGNOSES: - Allergy status to narcotic agent - Allergy status to other antibiotic agents - Allergy status to other drugs, medicaments and biological substances - Allergy status to penicillin - Allergy status to sulfonamides - Cannabis use, unspecified, uncomplicated - Chronic kidney disease, stage 3 unspecified - Contact with and (suspected) exposure to COVID-19 - Gastroparesis - Heart failure, unspecified - Hypertensive heart and chronic kidney disease with heart failure and stage 1 through stage 4 chronic kidney disease, or unspecified chronic kidney disease - Hypokalemia - 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 - Nausea with vomiting, unspecified - Other intermediate school teacher (current) drug therapy - Personal history of nicotine dependence - Type 2 diabetes mellitus with diabetic autonomic (poly)neuropathy - Type 2 diabetes mellitus with diabetic chronic kidney disease - Type 2 diabetes mellitus with diabetic neuropathy, unspecified - Unspecified chronic bronchitis 04/02/2022 17:17 [facility] OR TYPE: Emergency COMPLAINT: - VOMITING DIAGNOSES: - Allergy status to narcotic agent - Allergy status to other antibiotic agents - Allergy status to other drugs, medicaments and biological substances - Allergy status to penicillin - Allergy status to sulfonamides - Chronic kidney disease, stage 3 unspecified - Chronic obstructive pulmonary disease, unspecified - Gastroparesis - Heart failure, unspecified - Hypertensive heart and chronic kidney disease with heart failure and stage 1 through stage 4 chronic kidney disease, or unspecified chronic kidney disease - shelter (current) use of insulin - Nausea with vomiting, unspecified - Other fci (current) drug therapy - Personal history of nicotine dependence - Type 2 diabetes mellitus with diabetic autonomic (poly)neuropathy - Type 2 diabetes mellitus with diabetic neuropathy, unspecified 02/07/2022 14:42 [facility] OR TYPE: Emergency COMPLAINT: - LOWER R LEG PAIN 12/03/2021 20:18 [facility] OR TYPE: Emergency COMPLAINT: - NAUSEA, VOMITING DIAGNOSES: - Allergy status to narcotic agent - Allergy status to other antibiotic agents - Allergy status to other drugs, medicaments and biological substances - Allergy status to penicillin - Allergy status to sulfonamides - Cellulitis of right lower limb - Chronic kidney disease, stage 3 unspecified - Chronic obstructive pulmonary disease, unspecified - Contact with and (suspected) exposure to COVID-19 - Dehydration - Heart failure, unspecified - Hyperlipidemia, unspecified - Hypertensive heart and chronic kidney disease with heart failure and stage 1 through stage 4 chronic kidney disease, or unspecified chronic kidney disease - Hypokalemia - shelter (current) use of insulin - Nausea with vomiting, unspecified - Other intermediate school teacher (current) drug therapy - Personal history of nicotine dependence - Type 2 diabetes mellitus with diabetic chronic kidney disease - Type 2 diabetes mellitus with diabetic neuropathy, unspecified INPATIENT VISIT TRACKING (12 MO.) 02/07/2022 18:01 [facility] OR TYPE: Medical Surgical COMPLAINT: - RIGHT LE CELLLULITIS, DIABETIC WOUND DIAGNOSES: - Acquired absence of both cervix and uterus - Acquired absence of both cervix and uterus - Acquired absence of left leg below knee - Acquired absence of left leg below knee - Acquired absence of other specified parts of digestive tract - Acquired absence of other specified parts of digestive tract - Acute on chronic combined systolic (congestive) and diastolic (congestive) heart failure - Acute on chronic combined systolic (congestive) and diastolic (congestive) heart failure - Allergy status to narcotic agent - Allergy status to narcotic agent - Allergy status to other antibiotic agents - Allergy status to other antibiotic agents - Allergy status to other drugs, medicaments and biological substances - Allergy status to other drugs, medicaments and biological substances - Allergy status to penicillin - Allergy status to penicillin - Allergy status to sulfonamides - Allergy status to sulfonamides - Cellulitis of right lower limb - Chronic kidney disease, stage 3b - Chronic kidney disease, stage 3b - Chronic obstructive pulmonary disease, unspecified - Chronic obstructive pulmonary disease, unspecified - Contact with and (suspected) exposure to COVID-19 - Contact with and (suspected) exposure to COVID-19 - Hyperlipidemia, unspecified - Hyperlipidemia, unspecified - Hypertensive heart and chronic kidney disease with heart failure and stage 1 through stage 4 chronic kidney disease, or unspecified chronic kidney disease - Hypertensive heart and chronic kidney disease with heart failure and stage 1 through stage 4 chronic kidney disease, or unspecified chronic kidney disease - Obstructive sleep apnea (adult) (pediatric) - Obstructive sleep apnea (adult) (pediatric) - Other specified postprocedural states - Other specified postprocedural states - Personal history of nicotine dependence - Personal history of nicotine dependence - Type 2 diabetes mellitus with diabetic chronic kidney disease - Type 2 diabetes mellitus with diabetic chronic kidney disease - Type 2 diabetes mellitus with diabetic neuropathy, unspecified - Type 2 diabetes mellitus with diabetic neuropathy, unspecified - Type 2 diabetes mellitus with hyperglycemia - Type 2 diabetes mellitus with hyperglycemia - Type 2 diabetes mellitus with other skin complications - Type 2 diabetes mellitus with other skin complications [email or web address]
[2022-08-09] MEDS ORDERED: REGLAN10 MG PO (02:35)
[2022-08-09] MEDS ORDERED: ONDANSETRON ODT4 MG PO (02:35)
[2022-08-09] MEDS ORDERED: CEPHALEXIN500 MG PO (02:41)
[2022-08-09 03:05] VITALS: BP 144/83
== END 2022-08-09 03:05 | disposition home or self-care (01) ==
LOC: ED 20:36
DX: N39.0 Urinary tract infection, site not specified (principal); E11.43 Type 2 diabetes mellitus with diabetic autonomic (poly)neuropathy; K31.84 Gastroparesis; E11.22 Type 2 diabetes mellitus with diabetic chronic kidney disease; I13.0 Hypertensive heart and chronic kidney disease with heart failure and stage 1 through stage 4 chronic kidney disease, or unspecified chronic kidney disease; I50.9 Heart failure, unspecified; N18.30 Chronic kidney disease, stage 3 unspecified; E78.5 Hyperlipidemia, unspecified; Z87.891 Personal history of nicotine dependence; Z88.5 Allergy status to narcotic agent; Z88.0 Allergy status to penicillin; Z88.2 Allergy status to sulfonamides; Z88.1 Allergy status to other antibiotic agents; Z79.899 Other long term (current) drug therapy; Z79.4 Long term (current) use of insulin
CPT/HCPCS: 36415; 71045; 80053; 81001; 83690; 83735; 84484; 85025; 96365; 96366; 96367; 96375; 96376; 99284-25; J0696; J1790; J2405; J2765; J3480; J7030

== ENCOUNTER 2022-10-19 20:29 | Inpatient (IN) | payer OTHER ==
[~2022-10-19] VITALS: Ht 170.2 cm; Wt 134.8 kg
--- NOTE | ~2022-10-19 | OR ---
[facility] [address], [place] [address] Draft DATE OF OPERATION: 10/22/2022 SURGEON: Shay Andino DPM PREOPERATIVE DIAGNOSES: 1. Gangrene, right hallux. 2. Cellulitis, right foot. POSTOPERATIVE DIAGNOSES: 1. Gangrene, right hallux. 2. Cellulitis, right foot. ANESTHESIA: IV general with local block right foot. REHAB DEPARTMENT MANAGER: Shorty. SPECIMEN TO PATHOLOGY: Soft tissue and bone of right hallux. PROCEDURE: Amputation/debridement, right hallux. DESCRIPTION OF PROCEDURE: The patient was brought to the operating room and placed on the table in the supine position. Anesthesia Department administered IV sedation after which a local block was given to the right foot using a total of 10 mL of 1:1 mixture 2% lidocaine plain and 0.5% ropivacaine plain. The right leg and foot was then prepped and draped in the usual sterile manner and an Esmarch was used for hemostasis. Attention was initially directed to the right hallux. The majority of the right hallux is dark and necrotic. The incision was made just proximal to the area of necrotic tissue leaving a slightly larger soft tissue flap dorsally but creating a horizontal ellipse extending more proximal on the medial side to the level of the 1st MTPJ. With the incision made deep to bone, soft tissues were reflected dorsally and plantarly to expose the base of the proximal phalanx, which was then disarticulated at the MTPJ removing the entire toe to be sent for pathology. The remaining soft tissues appear to be nearly 100% viable without noted purulence or necrotic tissue. A small amount of additional debridement made primarily removing nonviable tissue such as fascia, exposed PATIENT NAME: LINH PEDRAZA OPERATIVE REPORT DATE OF : 65 REPORT #: [id number] PHYSICIAN: SHAY ANDINO DPM PCP: JOHN ARIZA MD REPORT IS CONFIDENTIAL AND NOT TO BE RELEASED WITHOUT AUTHORIZATION [facility] [address], [place] [address] Draft fascia and tendon. The surgical site irrigated with copious amounts of normal saline and the bone of the 1st metatarsal appeared to be solid. The bone of the proximal phalanx had appeared to be solid and the cartilage to the head of the 1st metatarsal appears to be of normal color and intact. The surgical site was then closed using 3-0 nylon, prior to closure calcium sulfate antibiotic beads containing vancomycin were placed within the wound site. The surgical site was then closed with simple interrupted sutures. ESTIMATED BLOOD LOSS: Less than 5 mL. INTRAOPERATIVE COMPLICATIONS: None. DRESSINGS: Surgical site dressed with Adaptic, Betadine-soaked gauze, dry gauze, Kerlix roll, and Coban to secure the dressings with minimal compression. Intraoperative cultures were obtained following the initial incision. A small amount of purulent drainage was noted at this time and cultures were obtained. The patient tolerated the procedure and the anesthesia well and left the operating room with vital signs stable and vascular status intact to the right foot as evidenced by hyperemia with removal of the Esmarch. Shay Andino DPM DFB/MODL /[id number] Copies: ~ PATIENT NAME: LINH PEDRAZA OPERATIVE REPORT DATE OF : 65 REPORT #: [id number] PHYSICIAN: SHAY ANDINO DPM PCP: JOHN ARIAZ MD REPORT IS CONFIDENTIAL AND NOT TO BE RELEASED WITHOUT AUTHORIZATION
--- OUTSIDE RECORDS SUMMARY | ~2022-10-19 | XMS | Continuity of Care Document ---
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 | (no reaction) | (no severity) | | | Sulfamethoxazol | [facility] | | | + + + + + + | (no date) | Trimethoprim | [facility] | (no reaction) | (no severity) | | | | [facility] | | | + + + + + + | (no date) | Urticaria | [facility] | (no reaction) | (no severity) | | | | [facility] | | | + + + + + + | (no date) | Mild | [facility] | (no reaction) | (no severity) | | | | [facility] | | | + + + + + + | (no date) | Codeine | [facility] | (no reaction) | (no severity) | | | | [facility] | | | + + + + + + | (no date) | Trimethoprim | [facility] | (no reaction) | (no severity) | | | | [facility] | | | + + + + + + | (no date) | | [facility] | (no reaction) | (no severity) | | | Sulfamethoxazol | [facility] | | | + + + + + + | (no date) | Erythromycin | [facility] | (no reaction) | (no severity) | | | base | [facility] | | | + + + + + + | (no date) | Meperidine | [facility] | (no reaction) | (no severity) | | | | [facility] | | | + + + + + + | (no date) | Codeine | [facility] | (no reaction) | (no severity) | | | | [facility] | | | + + + + + + | (no date) | Levofloxacin | [facility] | (no reaction) | (no severity) | | | | [facility] | | | + + + + + + | (no date) | Itching | [facility] | (no reaction) | (no severity) | | | | [facility] | | | + + + + + + | (no date) | Meperidine | [facility] | (no reaction) | (no severity) | | | | [facility] | | | + + + + + + | (no date) | Levofloxacin | [facility] | (no reaction) | (no severity) | | | | [facility] | | | + + + + + + | (no date) | Penicillin | [facility] | (no reaction) | (no severity) | | | | [facility] | | | + + + + + + | (no date) | Penicillin | [facility] | (no reaction) | (no severity) | | | | [facility] | | | + + + + + + | (no date) | Levofloxacin | [facility] | (no reaction) | (no severity) | | | | [facility] | | | + + + + + + | (no date) | Meperidine | [facility] | (no reaction) | (no severity) | | | | [facility] | | | + + + + + + | (no date) | Trimethoprim | [facility] | (no reaction) | (no severity) | | | | [facility] | | | + + + + + + | (no date) | | [facility] | (no reaction) | (no severity) | | | Sulfamethoxazol | [facility] | | | + + + + + + | (no date) | Erythromycin | [facility] | (no reaction) | (no severity) | | | base | [facility] | | | + + + + + + | (no date) | Penicillin | [facility] | (no reaction) | (no severity) | | | | [facility] | | | + + + + + + | (no date) | Penicillin | [facility] | (no reaction) | (no severity) | | | | [facility] | | | + + + + + + | (no date) | Kirsten | [facility] | (no reaction) | (no severity) | | | | [facility] | | | + + + + + + Encounters No information. Functional Status No information. Immunizations + + + + | date | description | facility | + + + + | 2020-05-18 00:00 | Tdap | [facility] | + + + + | 2020-05-18 00:00 | Tdap | [facility] | + + + + | 2020-05-18 00:00 | Tdap | [facility] | + + + + | 2021-12-04 00:00 | Influenza, Injectable, | [facility] | | | Quadrivalent, Preservative | | + + + + | 2022-02-14 00:00 | Influenza, Injectable, | [facility] | | | Quadrivalent, Preservative | | + + + + | 2022-04-06 00:00 | Influenza, Injectable, | [facility] | | | Quadrivalent, Preservative | | + + + + | 2022-04-30 00:00 | Influenza, Injectable, | [facility] | | | Quadrivalent, Preservative | | + + + + | 2022-08-09 00:00 | Influenza, Injectable, | [facility] | | | Quadrivalent, Preservative | | + + + + Medications + + + + | date | description | facility | + + + + | 2021-12-04 00:00 | FAMOTIDINE | [facility] | + + + + | 2022-08-09 00:00 | ONDANSETRON | [facility] | + + + + | 2019-07-17 00:00 | ONDANSETRON HCL | [facility] | + + + + | 2019-07-17 00:00 | ONDANSETRON HCL | [facility] | + + + + | 2019-07-17 00:00 | ONDANSETRON HCL | [facility] | + + + + | 2021-12-04 00:00 | LAMOTRIGINE | [facility] | + + + + | 2022-02-14 00:00 | LAMOTRIGINE | [facility] | + + + + | 2022-04-06 00:00 | LAMOTRIGINE | [facility] | + + + + | 2022-04-30 00:00 | LAMOTRIGINE | [facility] | + + + + | 2022-08-09 00:00 | LAMOTRIGINE | [facility] | + + + + | 2021-12-04 00:00 | ALPRAZOLAM | [facility] | + + + + | 2022-02-14 00:00 | ALPRAZOLAM | [facility] | + + + + | 2022-04-06 00:00 | ALPRAZOLAM | [facility] | + + + + | 2022-04-30 00:00 | ALPRAZOLAM | [facility] | + + + + | 2022-08-09 00:00 | ALPRAZOLAM | [facility] | + + + + | 2022-04-30 00:00 | POTASSIUM CHLORIDE | [facility] | + + + + | 2021-12-04 00:00 | EMPAGLIFLOZIN | [facility] | + + + + | 2022-02-14 00:00 | EMPAGLIFLOZIN | [facility] | + + + + | 2022-04-06 00:00 | EMPAGLIFLOZIN | [facility] | + + + + | 2022-04-30 00:00 | EMPAGLIFLOZIN | [facility] | + + + + | 2022-08-09 00:00 | EMPAGLIFLOZIN | [facility] | + + + + | 2021-12-04 00:00 | DOXYCYCLINE HYCLATE | [facility] | + + + + | 2022-02-14 00:00 | DOXYCYCLINE HYCLATE | [facility] | + + + + | 2022-04-06 00:00 | DOXYCYCLINE HYCLATE | [facility] | + + + + | 2022-04-30 00:00 | DOXYCYCLINE HYCLATE | [facility] | + + + + | 2022-08-09 00:00 | DOXYCYCLINE HYCLATE | [facility] | + + + + | 2021-12-04 00:00 | Insulin Aspart | [facility] | + + + + | 2022-02-14 00:00 | Insulin Aspart | [facility] | + + + + | 2022-04-06 00:00 | Insulin Aspart | [facility] | + + + + | 2022-04-30 00:00 | Insulin Aspart | [facility] | + + + + | 2022-08-09 00:00 | Insulin Aspart | [facility] | + + + + | 2021-12-04 00:00 | Insulin | [facility] | | | Hum. Markrecsaravanan | | + + + + | 2022-02-14 00:00 | Insulin | [facility] | | | Hum. MarkrecGeoffannegro | | + + + + | 2022-04-06 00:00 | Insulin | [facility] | | | MarkHumGeoffrecGeoffanlog | | + + + + | 2022-04-30 00:00 | Insulin | [facility] | | | [place].rec.anlog | | + + + + | 2022-08-09 00:00 | Insulin | [facility] | | | [facility] | | + + + + | 2021-12-04 00:00 | LISINOPRIL | [facility] | + + + + | 2022-02-14 00:00 | LISINOPRIL | [facility] | + + + + | 2022-04-06 00:00 | LISINOPRIL | [facility] | + + + + | 2022-04-30 00:00 | LISINOPRIL | [facility] | + + + + | 2022-08-09 00:00 | LISINOPRIL | [facility] | + + + + | 2021-12-04 00:00 | METOLAZONE | [facility] | + + + + | 2022-02-14 00:00 | METOLAZONE | [facility] | + + + + | 2022-04-06 00:00 | METOLAZONE | [facility] | + + + + | 2022-04-30 00:00 | METOLAZONE | [facility] | + + + + | 2022-08-09 00:00 | METOLAZONE | [facility] | + + + + | 2021-12-04 00:00 | POTASSIUM CHLORIDE | [facility] | + + + + | 2021-12-04 00:00 | TORSEMIDE | [facility] | + + + + | 2022-02-14 00:00 | TORSEMIDE | [facility] | + + + + | 2022-04-06 00:00 | TORSEMIDE | [facility] | + + + + | 2022-04-30 00:00 | TORSEMIDE | [facility] | + + + + | 2022-08-09 00:00 | TORSEMIDE | [facility] | + + + + | 2022-02-14 00:00 | MELATONIN | [facility] | + + + + | 2021-12-04 00:00 | CARVEDILOL | [facility] | + + + + | 2022-02-14 00:00 | CARVEDILOL | [facility] | + + + + | 2022-04-06 00:00 | CARVEDILOL | [facility] | + + + + | 2022-04-30 00:00 | CARVEDILOL | [facility] | + + + + | 2022-08-09 00:00 | CARVEDILOL | [facility] | + + + + | 2021-12-04 00:00 | OMEPRAZOLE | [facility] | + + + + | 2022-02-14 00:00 | OMEPRAZOLE | [facility] | + + + + | 2022-04-06 00:00 | OMEPRAZOLE | [facility] | + + + + | 2022-04-30 00:00 | OMEPRAZOLE | [facility] | + + + + | 2022-08-09 00:00 | OMEPRAZOLE | [facility] | + + + + | 2022-04-02 00:00 | METOCLOPRAMIDE HCL | [facility] | + + + + | 2022-04-02 00:00 | METOCLOPRAMIDE HCL | [facility] | + + + + | 2022-08-09 00:00 | METOCLOPRAMIDE HCL | [facility] | + + + + | 2017-12-24 00:00 | CEPHALEXIN | [facility] | + + + + | 2017-12-24 00:00 | CEPHALEXIN | [facility] | + + + + | 2017-12-24 00:00 | CEPHALEXIN | [facility] | + + + + | 2021-12-04 00:00 | FLUOXETINE HCL | [facility] | + + + + | 2022-02-14 00:00 | FLUOXETINE HCL | [facility] | + + + + | 2022-04-06 00:00 | FLUOXETINE HCL | [facility] | + + + + | 2022-04-30 00:00 | FLUOXETINE HCL | [facility] | + + + + | 2022-08-09 00:00 | FLUOXETINE HCL | [facility] | + + + + | 2021-12-04 00:00 | Torsemide | [facility] | + + + + | 2022-02-14 00:00 | Torsemide | [facility] | + + + + | 2022-04-06 00:00 | Torsemide | [facility] | + + + + | 2022-04-30 00:00 | Torsemide | [facility] | + + + + | 2022-08-09 00:00 | Torsemide | [facility] | + + + + | 2022-04-30 00:00 | BENZONATATE | [facility] | + + + + | 2021-12-04 00:00 | PANTOPRAZOLE SODIUM | [facility] | + + + + | 2022-02-14 00:00 | PANTOPRAZOLE SODIUM | [facility] | + + + + | 2022-04-06 00:00 | PANTOPRAZOLE SODIUM | [facility] | + + + + | 2022-04-30 00:00 | PANTOPRAZOLE SODIUM | [facility] | + + + + | 2022-08-09 00:00 | PANTOPRAZOLE SODIUM | [facility] | + + + + | 2021-12-04 00:00 | INSULIN GLARGINE | [facility] | + + + + | 2022-02-14 00:00 | INSULIN GLARGINE | [facility] | + + + + | 2022-04-06 00:00 | INSULIN GLARGINE | [facility] | + + + + | 2022-04-30 00:00 | INSULIN GLARGINE | [facility] | + + + + | 2022-08-09 00:00 | INSULIN GLARGINE | [facility] | + + + + | 2022-08-09 00:00 | CEPHALEXIN | [facility] | + + + + | 2021-12-04 00:00 | CLOPIDOGREL BISULFATE | [facility] | + + + + | 2022-02-14 00:00 | CLOPIDOGREL BISULFATE | [facility] | + + + + | 2022-04-06 00:00 | CLOPIDOGREL BISULFATE | [facility] | + + + + | 2022-04-30 00:00 | CLOPIDOGREL BISULFATE | [facility] | + + + + | 2022-08-09 00:00 | CLOPIDOGREL BISULFATE | [facility] | + + + + | 2021-12-04 00:00 | FAMOTIDINE | [facility] | + + + + | 2022-02-14 00:00 | FAMOTIDINE | [facility] | + + + + | 2022-04-06 00:00 | FAMOTIDINE | [facility] | + + + + | 2022-04-30 00:00 | FAMOTIDINE | [facility] | + + + + | 2022-08-09 00:00 | FAMOTIDINE | [facility] | + + + + | 2021-12-04 00:00 | GABAPENTIN | [facility] | + + + + | 2022-02-14 00:00 | GABAPENTIN | [facility] | + + + + | 2022-04-06 00:00 | GABAPENTIN | [facility] | + + + + | 2022-04-30 00:00 | GABAPENTIN | [facility] | + + + + | 2022-08-09 00:00 | GABAPENTIN | [facility] | + + + + | 2021-12-04 00:00 | GABAPENTIN | [facility] | + + + + | 2022-02-14 00:00 | GABAPENTIN | [facility] | + + + + | 2022-04-06 00:00 | GABAPENTIN | [facility] | + + + + | 2022-04-30 00:00 | GABAPENTIN | [facility] | + + + + | 2022-08-09 00:00 | GABAPENTIN | [facility] | + + + + | 2021-12-04 00:00 | METOCLOPRAMIDE HCL | [facility] | + + + + | 2022-02-14 00:00 | METOCLOPRAMIDE HCL | [facility] | + + + + | 2022-04-06 00:00 | METOCLOPRAMIDE HCL | [facility] | + + + + | 2022-04-30 00:00 | METOCLOPRAMIDE HCL | [facility] | + + + + | 2022-08-09 00:00 | METOCLOPRAMIDE HCL | [facility] | + + + + | 2019-05-29 00:00 | ONDANSETRON | [facility] | + + + + | 2019-05-29 00:00 | ONDANSETRON | [facility] | + + + + | 2019-05-29 00:00 | ONDANSETRON | [facility] | + + + + | 2022-04-02 00:00 | ONDANSETRON | [facility] | + + + + | 2022-04-02 00:00 | ONDANSETRON | [facility] | + + + + | 2022-04-30 00:00 | ONDANSETRON | [facility] | + + + + | 2019-05-12 00:00 | predniSONE | [facility] | + + + + | 2019-05-12 00:00 | predniSONE | [facility] | + + + + | 2019-05-12 00:00 | predniSONE | [facility] | + + + + | 2021-12-04 00:00 | FUROSEMIDE | [facility] | + + + + | 2022-02-14 00:00 | FUROSEMIDE | [facility] | + + + + | 2022-04-06 00:00 | FUROSEMIDE | [facility] | + + + + | 2022-04-30 00:00 | FUROSEMIDE | [facility] | + + + + | 2022-08-09 00:00 | FUROSEMIDE | [facility] | + + + + | 2021-12-04 00:00 | LISINOPRIL | [facility] | + + + + | 2022-02-14 00:00 | LISINOPRIL | [facility] | + + + + | 2022-04-06 00:00 | LISINOPRIL | [facility] | + + + + | 2022-04-30 00:00 | LISINOPRIL | [facility] | + + + + | 2022-08-09 00:00 | LISINOPRIL | [facility] | + + + + | 2021-12-04 00:00 | PIOGLITAZONE HCL | [facility] | + + + + | 2022-02-14 00:00 | PIOGLITAZONE HCL | [facility] | + + + + | 2022-04-06 00:00 | PIOGLITAZONE HCL | [facility] | + + + + | 2022-04-30 00:00 | PIOGLITAZONE HCL | [facility] | + + + + | 2022-08-09 00:00 | PIOGLITAZONE HCL | [facility] | + + + + | 2021-12-04 00:00 | Insulin Aspart | [facility] | + + + + | 2022-02-14 00:00 | Insulin Aspart | [facility] | + + + + | 2022-04-06 00:00 | Insulin Aspart | [facility] | + + + + | 2022-04-30 00:00 | Insulin Aspart | [facility] | + + + + | 2022-08-09 00:00 | Insulin Aspart | [facility] | + + + + | 2021-12-04 00:00 | TIZANIDINE HCL | [facility] | + + + + | 2022-02-14 00:00 | TIZANIDINE HCL | [facility] | + + + + | 2022-04-06 00:00 | TIZANIDINE HCL | [facility] | + + + + | 2022-04-30 00:00 | TIZANIDINE HCL | [facility] | + + + + | 2022-08-09 00:00 | TIZANIDINE HCL | [facility] | + + + + | 2021-12-04 00:00 | DULOXETINE HCL | [facility] | + + + + | 2022-02-14 00:00 | DULOXETINE HCL | [facility] | + + + + | 2022-04-06 00:00 | DULOXETINE HCL | [facility] | + + + + | 2022-04-30 00:00 | DULOXETINE HCL | [facility] | + + + + | 2022-08-09 00:00 | DULOXETINE HCL | [facility] | + + + + | 2021-12-04 00:00 | ARIPIPRAZOLE | [facility] | + + + + | 2022-02-14 00:00 | ARIPIPRAZOLE | [facility] | + + + + | 2022-04-06 00:00 | ARIPIPRAZOLE | [facility] | + + + + | 2022-04-30 00:00 | ARIPIPRAZOLE | [facility] | + + + + | 2022-08-09 00:00 | ARIPIPRAZOLE | [facility] | + + + + | 2021-12-04 00:00 | DULOXETINE HCL | [facility] | + + + + | 2022-02-14 00:00 | DULOXETINE HCL | [facility] | + + + + | 2022-04-06 00:00 | DULOXETINE HCL | [facility] | + + + + | 2022-04-30 00:00 | DULOXETINE HCL | [facility] | + + + + | 2022-08-09 00:00 | DULOXETINE HCL | [facility] | + + + + | 2021-12-04 00:00 | AMOXICILLIN/POTASSIUM CLAV | [facility] | | | | | + + + + | 2022-02-14 00:00 | AMOXICILLIN/POTASSIUM CLAV | [facility] | | | | | + + + + | 2022-04-06 00:00 | AMOXICILLIN/POTASSIUM CLAV | [facility] | | | | | + + + + | 2022-04-30 00:00 | AMOXICILLIN/POTASSIUM CLAV | [facility] | | | | | + + + + | 2022-08-09 00:00 | AMOXICILLIN/POTASSIUM CLAV | [facility] | | | | | + + + + | 2022-02-14 00:00 | Diclofenac Sodium | [facility] | + + + + | 2022-04-06 00:00 | Diclofenac Sodium | [facility] | + + + + | 2022-04-30 00:00 | Diclofenac Sodium | [facility] | + + + + | 2022-08-09 00:00 | Diclofenac Sodium | [facility] | + + + + | 2020-07-08 00:00 | HYDROCODONE | [facility] | | | BIT/ACETAMINOPHEN | | + + + + | 2020-07-08 00:00 | HYDROCODONE | [facility] | | | BIT/ACETAMINOPHEN | | + + + + | 2020-07-08 00:00 | HYDROCODONE | [facility] | | | BIT/ACETAMINOPHEN | | + + + + | 2021-12-04 00:00 | ALBUTEROL SULFATE | [facility] | + + + + | 2022-02-14 00:00 | ALBUTEROL SULFATE | [facility] | + + + + | 2022-04-06 00:00 | ALBUTEROL SULFATE | [facility] | + + + + | 2022-04-30 00:00 | ALBUTEROL SULFATE | [facility] | + + + + | 2022-08-09 00:00 | ALBUTEROL SULFATE | [facility] | + + + + | 2021-12-04 00:00 | Rosuvastatin Calcium | [facility] | + + + + | 2022-02-14 00:00 | Rosuvastatin Calcium | [facility] | + + + + | 2022-04-06 00:00 | Rosuvastatin Calcium | [facility] | + + + + | 2022-04-30 00:00 | Rosuvastatin Calcium | [facility] | + + + + | 2022-08-09 00:00 | Rosuvastatin Calcium | [facility] | + + + + | 2021-12-04 00:00 | ROSUVASTATIN CALCIUM | [facility] | + + + + | 2022-02-14 00:00 | ROSUVASTATIN CALCIUM | [facility] | + + + + | 2022-04-06 00:00 | ROSUVASTATIN CALCIUM | [facility] | + + + + | 2022-04-30 00:00 | ROSUVASTATIN CALCIUM | [facility] | + + + + | 2022-08-09 00:00 | ROSUVASTATIN CALCIUM | [facility] | + + + + | 2021-12-04 00:00 | METFORMIN HCL | [facility] | + + + + | 2022-02-14 00:00 | METFORMIN HCL | [facility] | + + + + | 2022-04-06 00:00 | METFORMIN HCL | [facility] | + + + + | 2022-04-30 00:00 | METFORMIN HCL | [facility] | + + + + | 2022-08-09 00:00 | METFORMIN HCL | [facility] | + + + + | 2021-12-04 00:00 | FLUTICASONE PROPIONATE 220 | [facility] | | | MCG | | + + + + | 2022-02-14 00:00 | FLUTICASONE PROPIONATE 220 | [facility] | | | MCG | | + + + + | 2022-04-06 00:00 | FLUTICASONE PROPIONATE 220 | [facility] | | | MCG | | + + + + | 2022-04-30 00:00 | FLUTICASONE PROPIONATE 220 | [facility] | | | MCG | | + + + + | 2022-08-09 00:00 | FLUTICASONE PROPIONATE 220 | [facility] | | | MCG | | + + + + | 2019-05-29 00:00 | PROMETHAZINE HCL | [facility] | + + + + | 2019-05-29 00:00 | PROMETHAZINE HCL | [facility] | + + + + | 2019-05-29 00:00 | PROMETHAZINE HCL | [facility] | + + + + | 2019-07-17 00:00 | PROMETHAZINE HCL | [facility] | + + + + | 2019-07-17 00:00 | PROMETHAZINE HCL | [facility] | + + + + 2019-07-17 00:00 | PROMETHAZINE HCL | [facility] | + + + + Problems + + + + | date | description | facility | + + + + | 2017-12-24 00:00 | Acute bronchitis | [facility] [place] | + + + + | 2017-12-24 00:00 | Acute bronchitis | [facility] | + + + + | 2017-12-24 00:00 | Acute bronchitis | [facility] | + + + + | 2017-12-24 00:00 | Ulcer of left foot | [facility] | + + + + | 2017-12-24 00:00 | Ulcer of left foot | [facility] | + + + + | 2017-12-24 00:00 | Ulcer of left foot | [facility] | + + + + | 2018-06-02 00:00 | Diverticulitis | [facility] | + + + + | 2018-06-02 00:00 | Diverticulitis | [facility] | + + + + | 2018-06-02 00:00 | Diverticulitis | [facility] | + + + + | 2018-06-02 00:00 | Nausea | [facility] | + + + + | 2018-06-02 00:00 | Nausea | [facility] | + + + + | 2018-06-02 00:00 | Nausea | [facility] | + + + + | 2018-06-02 00:00 | Vomiting | [facility] | + + + + | 2018-06-02 00:00 | Vomiting | [facility] | + + + + | 2018-06-02 00:00 | Vomiting | [facility] | + + + + | 2018-10-18 00:00 | Dehydration | [facility] | + + + + | 2018-10-18 00:00 | Dehydration | [facility] | + + + + | 2018-10-18 00:00 | Dehydration | [facility] | + + + + | 2019-05-12 00:00 | Congestive heart failure | [facility] | + + + + | 2019-05-12 00:00 | Congestive heart failure | [facility] | + + + + | 2019-05-12 00:00 | Congestive heart failure | [facility] | + + + + | 2019-05-12 00:00 | Acute bronchitis with | [facility] | | | chronic obstructive | | | | pulmonary disease (COPD) | | + + + + | 2019-05-12 00:00 | Acute bronchitis with | [facility] | | | chronic obstructive | | | | pulmonary disease (COPD) | | + + + + | 2019-05-12 00:00 | Acute bronchitis with | [facility] | | | chronic obstructive | | | | pulmonary disease (COPD) | | + + + + | 2019-05-29 00:00 | Acute gastroenteritis | [facility] | + + + + | 2019-05-29 00:00 | Acute gastroenteritis | [facility] | + + + + | 2019-05-29 00:00 | Acute gastroenteritis | [facility] | + + + + | 2019-09-08 00:00 | Gastroenteritis | [facility] | + + + + | 2019-09-08 00:00 | Gastroenteritis | [facility] | + + + + | 2019-09-08 00:00 | Gastroenteritis | [facility] | + + + + | 2019-09-09 00:00 | Nausea, vomiting, and | [facility] | | | diarrhea | | + + + + | 2019-09-09 00:00 | Nausea, vomiting, and | [facility] | | | diarrhea | | + + + + | 2019-09-09 00:00 | Nausea, vomiting, and | [facility] | | | diarrhea | | + + + + | 2019-11-07 00:00 | Acute kidney injury | [facility] | + + + + | 2019-11-07 00:00 | Acute kidney injury | [facility] | + + + + | 2019-11-07 00:00 | Acute kidney injury | [facility] | + + + + | 2020-05-18 00:00 | Cellulitis of left lower | [facility] | | | extremity | | + + + + | 2020-05-18 00:00 | Cellulitis of left lower | [facility] | | | extremity | | + + + + | 2020-05-18 00:00 | Cellulitis of left lower | [facility] | | | extremity | | + + + + | 2020-05-18 00:00 | Fracture of fifth | [facility] | | | metatarsal bone | | + + + + | 2020-05-18 00:00 | Fracture of fifth | [facility] | | | metatarsal bone | | + + + + | 2020-05-18 00:00 | Fracture of fifth | [facility] | | | metatarsal bone | | + + + + | 2020-07-08 00:00 | Closed fracture of left | [facility] | | | ankle | | + + + + | 2020-07-08 00:00 | Closed fracture of left | [facility] | | | ankle | | + + + + | 2020-07-08 00:00 | Closed fracture of left | [facility] | | | ankle | | + + + + | 2020-07-09 00:00 | Trimalleolar fracture of | [facility] | | | left ankle | | + + + + | 2020-07-09 00:00 | Trimalleolar fracture of | [facility] | | | left ankle | | + + + + | 2020-07-09 00:00 | Trimalleolar fracture of | [facility] | | | left ankle | | + + + + | 2020-07-10 00:00 | Hyperkalemia | [facility] | + + + + | 2020-07-10 00:00 | Hyperkalemia | [facility] | + + + + | 2020-07-10 00:00 | Hyperkalemia | [facility] | + + + + | 2020-07-10 00:00 | Weakness | [facility] | + + + + | 2020-07-10 00:00 | Weakness | [facility] | + + + + | 2020-07-10 00:00 | Weakness | [facility] | + + + + | 2020-07-12 19:11 | Anemia, unspecified | [facility] | [facility] | + + + + | 2020-07-12 19:11 | Type 2 diabetes mellitus | [facility] | | | with diabetic | [employer] | | | polyneuropathy | | + + + + | 2020-07-12 19:11 | Essential (primary) | [facility] | | | hypertension | [employer] | + + + + | 2020-07-12 19:11 | Osteomyelitis, unspecified | [facility] | | | [facility] [employer] | + + + + | 2020-07-12 19:11 | Other fracture of left | [facility] | | | lower leg, subsequent | [employer] | | | encounter for closed | | | | fracture with routine | | | | healing | | + + + + | 2020-07-12 19:11 | Other specified | [facility] | | | complication of vascular | [employer] | | | prosthetic devices, | | | | implants and grafts, | | | | initial encounter | | + + + + | 2020-07-12 19:11 | Other specified | [facility] | | | complication of vascular | [employer] | | | prosthetic devices, | | | | implants and grafts, | | | | subsequent encounter | | + + + + | 2020-07-12 19:11 | 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 | [employer] | + + + + | 2020-10-03 00:00 | Acute on chronic | [facility] | | | congestive heart failure | | + + + + | 2020-10-03 00:00 | Acute on chronic | [facility] | | | congestive heart failure | | + + + + | 2020-10-03 00:00 | Acute on chronic | [facility] | | | congestive heart failure | | + + + + | 2020-11-09 00:00 | Diabetes mellitus | [facility] | + + + + | 2020-11-09 00:00 | Diabetes mellitus | [facility] | + + + + | 2020-11-09 00:00 | Diabetes mellitus | [facility] | + + + + | 2020-11-09 00:00 | Cellulitis of left foot | [facility] | + + + + | 2020-11-09 00:00 | Cellulitis of left foot | [facility] | + + + + | 2020-11-09 00:00 | Cellulitis of left foot | [facility] | + + + + | 2020-11-09 00:00 | Chronic renal impairment | [facility] | + + + + | 2020-11-09 00:00 | Chronic renal impairment | [facility] | + + + + | 2020-11-09 00:00 | Chronic renal impairment | [facility] | + + + + | 2020-11-17 02:47:17 | Sepsis, unspecified | [facility] | | | organism | [employer] | + + + + | 2020-11-17 02:47:17 | Other disorder of | [facility] | | | circulatory system | [employer] | + + + + | 2020-11-28 19:04:14 | Unspecified complications | [facility] | | | of amputation stump | [employer] | + + + + | 2021-01-31 00:00 | Dyspnea | [facility] | + + + + | 2021-01-31 00:00 | Dyspnea | [facility] | + + + + | 2021-01-31 00:00 | Dyspnea | [facility] | + + + + | 2021-02-20 00:00 | Pulmonary thromboembolism | [facility] | + + + + | 2021-02-20 00:00 | Pulmonary thromboembolism | [facility] | + + + + | 2021-02-20 00:00 | Pulmonary thromboembolism | [facility] | + + + + | 2021-02-21 00:00 | Pleural effusion | [facility] | + + + + | 2021-02-21 00:00 | Pleural effusion | [facility] | + + + + | 2021-02-21 00:00 | Pleural effusion | [facility] | + + + + | 2021-02-21 00:00 | Chest pain | [facility] | + + + + | 2021-02-21 00:00 | Chest pain | [facility] | + + + + | 2021-02-21 00:00 | Chest pain | [facility] | + + + + | 2021-12-04 00:00 | Hypokalemia | [facility] | + + + + | 2021-12-04 00:00 | Hypokalemia | [facility] | + + + + | 2021-12-04 00:00 | Hypokalemia | [facility] | + + + + | 2021-12-04 00:00 | Gastroesophageal reflux | [facility] | | | disease | | + + + + | 2021-12-04 00:00 | Gastroesophageal reflux | [facility] | | | disease | | + + + + | 2021-12-04 00:00 | Gastroesophageal reflux | [facility] | | | disease | | + + + + | 2021-12-04 00:00 | Cellulitis and abscess of | [facility] | | | lower extremity | | + + + + | 2021-12-04 00:00 | Cellulitis and abscess of | [facility] | | | lower extremity | | + + + + | 2021-12-04 00:00 | Cellulitis and abscess of | [facility] | | | lower extremity | | + + + + | 2022-02-07 00:00 | Cellulitis of right lower | [facility] | | | leg | | + + + + | 2022-02-07 00:00 | Cellulitis of right lower | [facility] | | | leg | | + + + + | 2022-02-07 00:00 | Cellulitis of right lower | [facility] | | | leg | | + + + + | 2022-04-02 00:00 | Gastroparesis | [facility] | + + + + | 2022-04-02 00:00 | Gastroparesis | [facility] | + + + + | 2022-04-30 00:00 | Diabetic gastroparesis | [facility] | | | associated with type 2 | | | | diabetes mellitus | | + + + + | 2022-04-30 00:00 | Cannabis use disorder | [facility] | + + + + | 2022-04-30 00:00 | Chronic bronchitis | [facility] | + + + + | 2022-08-09 00:00 | Urinary tract infection | [facility] | + + + + Procedures No information. Results/Labs +--------+--------+ +---------+--------+---------+ | test | date | facility | value | unit | notes | +--------+--------+ +---------+--------+---------+ + + | Result panel 1 | + + + + + +--------+ + + | | 2021-12-03 | [facility] | 19.4 | (missing) | (missing) | | (unavailable | 20:37 | [facility] | | | | + + + +--------+ + + + + | Result panel 2 | + + + + + +--------+ + + | | 2021-12-03 | [facility] | 4.55 | (missing) | (missing) | | (unavailable | 20:37 | [facility] | | | | + + + +--------+ + + + + | Result panel 3 | + + + + + +--------+ + + | | 2021-12-03 | [facility] | 13.7 | (missing) | (missing) | | (unavailable | 20:37 | [facility] | | | | + + + +--------+ + + + + | Result panel 4 | + + + + + +--------+ + + | | 2021-12-03 | [facility] | 41.5 | (missing) | (missing) | | (unavailable | 20:37 | [facility] | | | | + + + +--------+ + + + + | Result panel 5 | + + + + + +--------+ + + | | 2021-12-03 | [facility] | 91.2 | (missing) | (missing) | | (unavailable | 20:37 | [facility] | | | | + + + +--------+ + + + + | Result panel 6 | + + + + + +--------+ + + | | 2021-12-03 | [facility] | 30.1 | (missing) | (missing) | | (unavailable | 20:37 | [facility] | | | | + + + +--------+ + + + + | Result panel 7 | + + + + + +--------+ + + | | 2021-12-03 | [facility] | 33.0 | (missing) | (missing) | | (unavailable | 20:37 | [facility] | | | | + + + +--------+ + + + + | Result panel 8 | + + + + + +--------+ + + | | 2021-12-03 | [facility] | 14.9 | (missing) | (missing) | | (unavailable | 20:37 | [facility] | | | | + + + +--------+ + + + + | Result panel 9 | + + + + + +-------+ + + | | 2021-12-03 | [facility] | 374 | (missing) | (missing) | | (unavailable | 20:37 | [facility] | | | | + + + +-------+ + + + + | Result panel 10 | + + + + + +------+ + + | | 2021-12-03 | [facility] | 91 | (missing) | (missing) | | (unavailable | 20:37 | [facility] | | | | + + + +------+ + + + + | Result panel 11 | + + + + + +-----+ + + | | 2021-12-03 | [facility] | 6 | (missing) | (missing) | | (unavailable | 20:37 | [facility] | | | | + + + +-----+ + + + + | Result panel 12 | + + + + + +-----+ + + | | 2021-12-03 | [facility] | 1 | (missing) | (missing) | | (unavailable | 20:37 | [facility] | | | | + + + +-----+ + + + + | Result panel 13 | + + + + + +-----+ + + | | 2021-12-03 | [facility] | 1 | (missing) | (missing) | | (unavailable | 20:37 | [facility] | | | | + + + +-----+ + + + + | Result panel 14 | + + + + + +-----+ + + | | 2021-12-03 | [facility] | 1 | (missing) | (missing) | | (unavailable | 20:37 | [facility] | | | | + + + +-----+ + + + + | Result panel 15 | + + + + + +-------+ + + | | 2021-12-03 | [facility] | 8.4 | (missing) | (missing) | | (unavailable | 20:37 | [facility] | | | | + + + +-------+ + + + + | Result panel 16 | + + + + + +-------+ + + | | 2021-12-03 | [facility] | 3.5 | (missing) | (missing) | | (unavailable | 20:37 | [facility] | | | | + + + +-------+ + + + + | Result panel 17 | + + + + + +-------+ + + | | 2021-12-03 | [facility] | 4.9 | (missing) | (missing) | | (unavailable | 20:37 | [facility] | | | | + + + +-------+ + + + + | Result panel 18 | + + + + + +--------+ + + | | 2021-12-03 | [facility] | 0.71 | (missing) | (missing) | | (unavailable | 20:37 | [facility] | | | | + + + +--------+ + + + + | Result panel 19 | + + + + + +-------+ + + | | 2021-12-03 | [facility] | 0.7 | (missing) | (missing) | | (unavailable | 20:37 | [facility] | | | | + + + +-------+ + + + + | Result panel 20 | + + + + + +------+ + + | | 2021-12-03 | [facility] | 14 | (missing) | (missing) | | (unavailable | 20:37 | [facility] | | | | + + + +------+ + + + + | Result panel 21 | + + + + + +------+ + + | | 2021-12-03 | [facility] | 19 | (missing) | (missing) | | (unavailable | 20:37 | [facility] | | | | + + + +------+ + + + + | Result panel 22 | + + + + + +-------+ + + | | 2021-12-03 | [facility] | 136 | (missing) | (missing) | | (unavailable | 20:37 | [facility] | | | | + + + +-------+ + + + + | Result panel 23 | + + + + + +-------+ + + | | 2021-12-03 | [facility] | 198 | (missing) | (missing) | | (unavailable | 20:37 | [facility] | | | | + + + +-------+ + + + + | Result panel 24 | + + + + + + + + + | | 2021-12-03 | [facility] | NEGATIVE | (missing) | (missing) | | (unavailable | 21:52 | [facility] | | | | + + + + + + + + + | Result panel 25 | + + + + + + + + + | | 2021-12-03 | [facility] | NEGATIVE | (missing) | (missing) | | (unavailable | 21:52 | [facility] | | | | + + + + + + + + + | Result panel 26 | + + + + + + + + + | | 2021-12-03 | [facility] | NEGATIVE | (missing) | (missing) | | (unavailable | 21:52 | [facility] | | | | + + + + + + + + + | Result panel 27 | + + + + + + + + + | | 2021-12-03 | [facility] | NEGATIVE | (missing) | (missing) | | (unavailable | 21:52 | [facility] | | | | + + + + + + + + + | Result panel 28 | + + + + + + + + + | | 2021-12-03 | [facility] | YELLOW | (missing) | (missing) | | (unavailable | 23:35 | [facility] | | | | + + + + + + + + + | Result panel 29 | + + + + + +---------+ + + | | 2021-12-03 | [facility] | CLEAR | (missing) | (missing) | | (unavailable | 23:35 | [facility] | | | | + + + +---------+ + + + + | Result panel 30 | + + + + + + + + + | | 2021-12-03 | [facility] | >=1000 | (missing) | (missing) | | (unavailable | 23:35 | [facility] | | | | + + + + + + + + + | Result panel 31 | + + + + + + + + + | | 2021-12-03 | [facility] | NEGATIVE | (missing) | (missing) | | (unavailable | 23:35 | [facility] | | | | + + + + + + + + + | Result panel 32 | + + + + + + + + + | | 2021-12-03 | [facility] | NEGATIVE | (missing) | (missing) | | (unavailable | 23:35 | [facility] | | | | + + + + + + + + + | Result panel 33 | + + + + + +---------+ + + | | 2021-12-03 | [facility] | 1.010 | (missing) | (missing) | | (unavailable | 23:35 | [facility] | | | | + + + +---------+ + + + + | Result panel 34 | + + + + + + + + + | | 2021-12-03 | [facility] | TRACE-L | (missing) | (missing) | | (unavailable | 23:35 | [facility] | | | | + + + + + + + + + | Result panel 35 | + + + + + +-------+ + + | | 2021-12-03 | [facility] | 6.0 | (missing) | (missing) | | (unavailable | 23:35 | [facility] | | | | + + + +-------+ + + + + | Result panel 36 | + + + + + +------+ + + | | 2021-12-03 | [facility] | 30 | (missing) | (missing) | | (unavailable | 23:35 | [facility] | | | | + + + +------+ + + + + | Result panel 37 | + + + + + + + + + | | 2021-12-03 | [facility] | NORMAL | (missing) | (missing) | | (unavailable | 23:35 | [facility] | | | | + + + + + + + + + | Result panel 38 | + + + + + + + + + | | 2021-12-03 | [facility] | NEGATIVE | (missing) | (missing) | | (unavailable | 23:35 | [facility] | | | | + + + + + + + + + | Result panel 39 | + + + + + + + + + | | 2021-12-03 | [facility] | NEGATIVE | (missing) | (missing) | | (unavailable | 23:35 | [facility] | | | | + + + + + + + + + | Result panel 40 | + + + + + +-------+ + + | | 2021-12-03 | [facility] | 2-3 | (missing) | (missing) | | (unavailable | 23:35 | [facility] | | | | + + + +-------+ + + + + | Result panel 41 | + + + + + +--------+ + + | | 2021-12-03 | [facility] | 7-11 | (missing) | (missing) | | (unavailable | 23:35 | [facility] | | | | + + + +--------+ + + + + | Result panel 42 | + + + + + + + + + | | 2021-12-03 | [facility] | SQUAMOUS 1+ | (missing) | (missing) | | (unavailable | 23:35 | [facility] | | | | + + + + + + + + + | Result panel 43 | + + + + + + + + + | | 2021-12-03 | [facility] | NONE SEEN | (missing) | (missing) | | (unavailable | 23:35 | [facility] | | | | + + + + + + + + + | Result panel 44 | + + + + + +------+ + + | | 2021-12-03 | [facility] | 2+ | (missing) | (missing) | | (unavailable | 23:35 | [facility] | | | | + + + +------+ + + + + | Result panel 45 | + + + + + + + + + | | 2021-12-03 | [facility] | NONE SEEN | (missing) | (missing) | | (unavailable | 23:35 | [facility] | | | | + + + + + + + + + | Result panel 46 | + + + + + +-------+ + + | | 2021-12-03 | [facility] | Yes | (missing) | (missing) | | (unavailable | 23:35 | [facility] | | | | + + + +-------+ + + + + | Result panel 47 | + + + + + + + + + | | 2021-12-03 | [facility] | CLEAN CATCH | (missing) | (missing) | | (unavailable | 23:35 | [facility] | | | | + + + + + + + + + | Result panel 48 | + + + + + +-------+---------+ + | | 2021-12-04 | [facility] | 2.4 | mg/dL | (missing) | | (unavailable | 00:50 | [facility] | | | | + + + +-------+---------+ + + + | Result panel 49 | + + + + + +--------+ + + | | 2021-12-04 | [facility] | 16.3 | (missing) | (missing) | | (unavailable | 00:50 | [facility] | | | | + + + +--------+ + + + + | Result panel 50 | + + + + + +-------+---------+ + | | 2021-12-04 | [facility] | 188 | mg/dL | (missing) | | (unavailable | 03:37 | [facility] | | | | + + + +-------+---------+ + + + | Result panel 51 | + + + + + +------+---------+ + | | 2021-12-04 | [facility] | 68 | mg/dL | (missing) | | (unavailable | 03:37 | [facility] | | | | + + + +------+---------+ + + + | Result panel 52 | + + + + + +--------+---------+ + | | 2021-12-04 | [facility] | 1.85 | mg/dL | (missing) | | (unavailable | 03:37 | [facility] | | | | + + + +--------+---------+ + + + | Result panel 53 | + + + + + +------+ + + | | 2021-12-04 | [facility] | 32 | (missing) | (missing) | | (unavailable | 03:37 | [facility] | | | | + + + +------+ + + + + | Result panel 54 | + + + + + +---------+ + + | | 2021-12-04 | [facility] | 36.75 | (missing) | (missing) | | (unavailable | 03:37 | [facility] | | | | + + + +---------+ + + + + | Result panel 55 | + + + + + +-------+ + + | | 2021-12-04 | [facility] | 137 | (missing) | (missing) | | (unavailable | 03:37 | [facility] | | | | + + + +-------+ + + + + | Result panel 56 | + + + + + +-------+ + + | | 2021-12-04 | [facility] | 3.3 | (missing) | (missing) | | (unavailable | 03:37 | [facility] | | | | + + + +-------+ + + + + | Result panel 57 | + + + + + +------+ + + | | 2021-12-04 | [facility] | 94 | (missing) | (missing) | | (unavailable | 03:37 | [facility] | | | | + + + +------+ + + + + | Result panel 58 | + + + + + +------+ + + | | 2021-12-04 | [facility] | 36 | (missing) | (missing) | | (unavailable | 03:37 | [facility] | | | | + + + +------+ + + + + | Result panel 59 | + + + + + +--------+ + + | | 2021-12-04 | [facility] | 10.3 | (missing) | (missing) | | (unavailable | 03:37 | [facility] | | | | + + + +--------+ + + + + | Result panel 60 | + + + + + +-------+---------+ + | | 2021-12-04 | [facility] | 8.6 | mg/dL | (missing) | | (unavailable | 03:37 | [facility] | | | | + + + +-------+---------+ + + + | Result panel 61 | + + + + + +-------+ + + | | 2022-02-07 | [facility] | 7.7 | (missing) | (missing) | | (unavailable | 15:53:08 | [facility] | | | | + + + +-------+ + + + + | Result panel 62 | + + + + + +-------+ + + | | 2022-02-07 | [facility] | 3.3 | (missing) | (missing) | | (unavailable | 15:53:08 | [facility] | | | | + + + +-------+ + + + + | Result panel 63 | + + + + + +-------+ + + | | 2022-02-07 | [facility] | 4.4 | (missing) | (missing) | | (unavailable | 15:53:08 | [facility] | | | | + + + +-------+ + + + + | Result panel 64 | + + + + + +--------+ + + | | 2022-02-07 | [facility] | 0.75 | (missing) | (missing) | | (unavailable | 15:53:08 | [facility] | | | | + + + +--------+ + + + + | Result panel 65 | + + + + + +-------+ + + | | 2022-02-07 | [facility] | 0.4 | (missing) | (missing) | | (unavailable | 15:53:08 | [facility] | | | | + + + +-------+ + + + + | Result panel 66 | + + + + + +------+ + + | | 2022-02-07 | [facility] | 15 | (missing) | (missing) | | (unavailable | 15:53:08 | [facility] | | | | + + + +------+ + + + + | Result panel 67 | + + + + + +------+ + + | | 2022-02-07 | [facility] | 22 | (missing) | (missing) | | (unavailable | 15:53:08 | [facility] | | | | + + + +------+ + + + + | Result panel 68 | + + + + + +-------+ + + | | 2022-02-07 | [facility] | 130 | (missing) | (missing) | | (unavailable | 15:53:08 | [facility] | | | | + + + +-------+ + + + + | Result panel 69 | + + + + + + + + + | | 2022-02-07 | [facility] | NEGATIVE | (missing) | (missing) | | (unavailable | 17:25:08 | [facility] | | | | + + + + + + + + + | Result panel 70 | + + + + + +-------+---------+ + | | 2022-02-08 | [facility] | 2.5 | mg/dL | (missing) | | (unavailable | 05:15:08 | [facility] | | | | + + + +-------+---------+ + + + | Result panel 71 | + + + + + +-------+---------+ + | | 2022-02-08 | [facility] | 1.9 | mg/dL | (missing) | | (unavailable | 05:15:08 | [facility] | | | | + + + +-------+---------+ + + + | Result panel 72 | + + + + + +-------+ + + | | 2022-02-10 | [facility] | 6.8 | (missing) | (missing) | | (unavailable | 05:12:08 | [facility] | | | | + + + +-------+ + + + + | Result panel 73 | + + + + + +--------+ + + | | 2022-02-10 | [facility] | 27.0 | (missing) | (missing) | | (unavailable | 16:25:08 | [facility] | | | | + + + +--------+ + + + + | Result panel 74 | + + + + + + + + + | | 2022-02-10 | [facility] | 02/09/2022 | (missing) | (missing) | | (unavailable | 16:25:08 | [facility] | | | [facility] | [facility] | | | | + + + + + + + + + | Result panel 75 | + + + + + +-------+ + + | | 2022-02-11 | [facility] | 9.6 | (missing) | (missing) | | (unavailable | 05:23:08 | [facility] | | | | + + + +-------+ + + + + | Result panel 76 | + + + + + +--------+ + + | | 2022-02-11 | [facility] | 4.06 | (missing) | (missing) | | (unavailable | 05:23:08 | [facility] | | | | + + + +--------+ + + + + | Result panel 77 | + + + + + +--------+ + + | | 2022-02-11 | [facility] | 12.4 | (missing) | (missing) | | (unavailable | 05:23:08 | [facility] | | | | + + + +--------+ + + + + | Result panel 78 | + + + + + +--------+ + + | | 2022-02-11 | [facility] | 37.4 | (missing) | (missing) | | (unavailable | 05:23:08 | [facility] | | | | + + + +--------+ + + + + | Result panel 79 | + + + + + +--------+ + + | | 2022-02-11 | [facility] | 92.1 | (missing) | (missing) | | (unavailable | 05:23:08 | [facility] | | | | + + + +--------+ + + + + | Result panel 80 | + + + + + +--------+ + + | | 2022-02-11 | [facility] | 30.4 | (missing) | (missing) | | (unavailable | 05:23:08 | [facility] | | | | + + + +--------+ + + + + | Result panel 81 | + + + + + +--------+ + + | | 2022-02-11 | [facility] | 33.0 | (missing) | (missing) | | (unavailable | 05:23:08 | [facility] | | | | + + + +--------+ + + + + | Result panel 82 | + + + + + +--------+ + + | | 2022-02-11 | [facility] | 16.0 | (missing) | (missing) | | (unavailable | 05:23:08 | [facility] | | | | + + + +--------+ + + + + | Result panel 83 | + + + + + +-------+ + + | | 2022-02-11 | [facility] | 303 | (missing) | (missing) | | (unavailable | 05:23:08 | [facility] | | | | + + + +-------+ + + + + | Result panel 84 | + + + + + +--------+ + + | | 2022-02-11 | [facility] | 68.5 | (missing) | (missing) | | (unavailable | 05:23:08 | [facility] | | | | + + + +--------+ + + + + | Result panel 85 | + + + + + +--------+ + + | | 2022-02-11 | [facility] | 20.1 | (missing) | (missing) | | (unavailable | 05:23:08 | [facility] | | | | + + + +--------+ + + + + | Result panel 86 | + + + + + +-------+ + + | | 2022-02-11 | [facility] | 8.0 | (missing) | (missing) | | (unavailable | 05:23:08 | [facility] | | | | + + + +-------+ + + + + | Result panel 87 | + + + + + +-------+ + + | | 2022-02-11 | [facility] | 2.5 | (missing) | (missing) | | (unavailable | 05:23:08 | [facility] | | | | + + + +-------+ + + + + | Result panel 88 | + + + + + +-------+ + + | | 2022-02-11 | [facility] | 0.9 | (missing) | (missing) | | (unavailable | 05:23:08 | [facility] | | | | + + + +-------+ + + + + | Result panel 89 | + + + + + +--------+ + + | | 2022-02-11 | [facility] | 19.9 | (missing) | (missing) | | (unavailable | 05:23:08 | [facility] | | | | + + + +--------+ + + + + | Result panel 90 | + + + + + +-------+---------+ + | | 2022-02-14 | [facility] | 194 | mg/dL | (missing) | | (unavailable | 05::08 | [facility] | | | | + + + +-------+---------+ + + + | Result panel 91 | + + + + + +------+---------+ + | | 2022-02-14 | [facility] | 54 | mg/dL | (missing) | | (unavailable | 05:30:08 | [facility] | | | | + + + +------+---------+ + + + | Result panel 92 | + + + + + +--------+---------+ + | | 2022-02-14 | [facility] | 1.61 | mg/dL | (missing) | | (unavailable | 05:30:08 | [facility] | | | | + + + +--------+---------+ + + + | Result panel 93 | + + + + + +------+ + + | | 2022-02-14 | [facility] | 37 | (missing) | (missing) | | (unavailable | 05:30:08 | [facility] | | | | + + + +------+ + + + + | Result panel 94 | + + + + + +---------+ + + | | 2022-02-14 | [facility] | 33.54 | (missing) | (missing) | | (unavailable | 05:30:08 | [facility] | | | | + + + +---------+ + + + + | Result panel 95 | + + + + + +-------+ + + | | 2022-02-14 | [facility] | 137 | (missing) | (missing) | | (unavailable | 05:30:08 | [facility] | | | | + + + +-------+ + + + + | Result panel 96 | + + + + + +-------+ + + | | 2022-02-14 | [facility] | 3.9 | (missing) | (missing) | | (unavailable | 05:30:08 | [facility] | | | | + + + +-------+ + + + + | Result panel 97 | + + + + + +------+ + + | | 2022-02-14 | [facility] | 98 | (missing) | (missing) | | (unavailable | 05:30:08 | [facility] | | | | + + + +------+ + + + + | Result panel 98 | + + + + + +------+ + + | | 2022-02-14 | [facility] | 33 | (missing) | (missing) | | (unavailable | 05:30:08 | [facility] | | | | + + + +------+ + + + + | Result panel 99 | + + + + + +-------+ + + | | 2022-02-14 | [facility] | 9.9 | (missing) | (missing) | | (unavailable | 05:30:08 | [facility] | | | | + + + +-------+ + + + + | Result panel 100 | + + + + + +-------+---------+ + | | 2022-02-14 | [facility] | 9.1 | mg/dL | (missing) | | (unavailable | 05:30:08 | [facility] | | | | + + + +-------+---------+ + + + | Result panel 101 | + + + + + +-------+ + + | | 2022-02-14 | [facility] | 248 | (missing) | (missing) | | (unavailable | 11:45:08 | [facility] | | | | + + + +-------+ + + + + | Result panel 102 | + + + + + +--------+ + + | | 2022-04-02 | [facility] | 11.4 | (missing) | (missing) | | (unavailable | 17:45:08 | [facility] | | | | + + + +--------+ + + + + | Result panel 103 | + + + + + +--------+ + + | | 2022-04-02 | [facility] | 4.93 | (missing) | (missing) | | (unavailable | 17:45:08 | [facility] | | | | + + + +--------+ + + + + | Result panel 104 | + + + + + +--------+ + + | | 2022-04-02 | [facility] | 14.6 | (missing) | (missing) | | (unavailable | 17:45:08 | [facility] | | | | + + + +--------+ + + + + | Result panel 105 | + + + + + +--------+ + + | | 2022-04-02 | [facility] | 44.4 | (missing) | (missing) | | (unavailable | 17:45:08 | [facility] | | | | + + + +--------+ + + + + | Result panel 106 | + + + + + +--------+ + + | | 2022-04-02 | [facility] | 90.0 | (missing) | (missing) | | (unavailable | 17:45:08 | [facility] | | | | + + + +--------+ + + + + | Result panel 107 | + + + + + +--------+ + + | | 2022-04-02 | [facility] | 29.7 | (missing) | (missing) | | (unavailable | 17:45:08 | [facility] | | | | + + + +--------+ + + + + | Result panel 108 | + + + + + +--------+ + + | | 2022-04-02 | [facility] | 32.9 | (missing) | (missing) | | (unavailable | 17:45:08 | [facility] | | | | + + + +--------+ + + + + | Result panel 109 | + + + + + +--------+ + + | | 2022-04-02 | [facility] | 15.2 | (missing) | (missing) | | (unavailable | 17:45:08 | [facility] | | | | + + + +--------+ + + + + | Result panel 110 | + + + + + +-------+ + + | | 2022-04-02 | [facility] | 316 | (missing) | (missing) | | (unavailable | 17:45:08 | [facility] | | | | + + + +-------+ + + + + | Result panel 111 | + + + + + +--------+ + + | | 2022-04-02 | [facility] | 75.7 | (missing) | (missing) | | (unavailable | 17:45:08 | [facility] | | | | + + + +--------+ + + + + | Result panel 112 | + + + + + +--------+ + + | | 2022-04-02 | [facility] | 15.6 | (missing) | (missing) | | (unavailable | 17:45:08 | [facility] | | | | + + + +--------+ + + + + | Result panel 113 | + + + + + +-------+ + + | | 2022-04-02 | [facility] | 6.5 | (missing) | (missing) | | (unavailable | 17:45:08 | [facility] | | | | + + + +-------+ + + + + | Result panel 114 | + + + + + +-------+ + + | | 2022-04-02 | [facility] | 1.3 | (missing) | (missing) | | (unavailable | 17:45:08 | [facility] | | | | + + + +-------+ + + + + | Result panel 115 | + + + + + +-------+ + + | | 2022-04-02 | [facility] | 0.9 | (missing) | (missing) | | (unavailable | 17:45:08 | [facility] | | | | + + + +-------+ + + + + | Result panel 116 | + + + + + +-------+---------+ + | | 2022-04-02 | [facility] | 216 | mg/dL | (missing) | | (unavailable | 17:45:08 | [facility] | | | | + + + +-------+---------+ + + + | Result panel 117 | + + + + + +------+---------+ + | | 2022-04-02 | [facility] | 48 | mg/dL | (missing) | | (unavailable | 17:45:08 | [facility] | | | | + + + +------+---------+ + + + | Result panel 118 | + + + + + +--------+---------+ + | | 2022-04-02 | [facility] | 1.78 | mg/dL | (missing) | | (unavailable | 17:45:08 | [facility] | | | | + + + +--------+---------+ + + + | Result panel 119 | + + + + + +------+ + + | | 2022-04-02 | [facility] | 33 | (missing) | (missing) | | (unavailable | 17:45:08 | [facility] | | | | + + + +------+ + + + + | Result panel 120 | + + + + + +---------+ + + | | 2022-04-02 | [facility] | 26.96 | (missing) | (missing) | | (unavailable | 17:45:08 | [facility] | | | | + + + +---------+ + + + + | Result panel 121 | + + + + + +-------+ + + | | 2022-04-02 | [facility] | 137 | (missing) | (missing) | | (unavailable | 17:45:08 | [facility] | | | | + + + +-------+ + + + + | Result panel 122 | + + + + + +-------+ + + | | 2022-04-02 | [facility] | 3.4 | (missing) | (missing) | | (unavailable | 17:45:08 | [facility] | | | | + + + +-------+ + + + + | Result panel 123 | + + + + + +------+ + + | | 2022-04-02 | [facility] | 95 | (missing) | (missing) | | (unavailable | 17:45:08 | [facility] | | | | + + + +------+ + + + + | Result panel 124 | + + + + + +------+ + + | | 2022-04-02 | [facility] | 35 | (missing) | (missing) | | (unavailable | 17:45:08 | [facility] | | | | + + + +------+ + + + + | Result panel 125 | + + + + + +--------+ + + | | 2022-04-02 | [facility] | 10.4 | (missing) | (missing) | | (unavailable | 17:45:08 | [facility] | | | | + + + +--------+ + + + + | Result panel 126 | + + + + + +-------+---------+ + | | 2022-04-02 | [facility] | 9.2 | mg/dL | (missing) | | (unavailable | 17:45:08 | [facility] | | | | + + + +-------+---------+ + + + | Result panel 127 | + + + + + +-------+---------+ + | | 2022-04-02 | [facility] | 2.2 | mg/dL | (missing) | | (unavailable | 17:45:08 | [facility] | | | | + + + +-------+---------+ + + + | Result panel 128 | + + + + + +-------+ + + | | 2022-04-02 | [facility] | 7.8 | (missing) | (missing) | | (unavailable | 17:45:08 | [facility] | | | | + + + +-------+ + + + + | Result panel 129 | + + + + + +-------+ + + | | 2022-04-02 | [facility] | 3.5 | (missing) | (missing) | | (unavailable | 17:45:08 | [facility] | | | | + + + +-------+ + + + + | Result panel 130 | + + + + + +-------+ + + | | 2022-04-02 | [facility] | 4.3 | (missing) | (missing) | | (unavailable | 17:45:08 | [facility] | | | | + + + +-------+ + + + + | Result panel 131 | + + + + + +--------+ + + | | 2022-04-02 | [facility] | 0.81 | (missing) | (missing) | | (unavailable | 17:45:08 | [facility] | | | | + + + +--------+ + + + + | Result panel 132 | + + + + + +-------+ + + | | 2022-04-02 | [facility] | 0.5 | (missing) | (missing) | | (unavailable | 17:45:08 | [facility] | | | | + + + +-------+ + + + + | Result panel 133 | + + + + + +------+ + + | | 2022-04-02 | [facility] | 12 | (missing) | (missing) | | (unavailable | 17:45:08 | [facility] | | | | + + + +------+ + + + + | Result panel 134 | + + + + + +------+ + + | | 2022-04-02 | [facility] | 17 | (missing) | (missing) | | (unavailable | 17:45:08 | [facility] | | | | + + + +------+ + + + + | Result panel 135 | + + + + + +-------+ + + | | 2022-04-02 | [facility] | 115 | (missing) | (missing) | | (unavailable | 17:45:08 | [facility] | | | | + + + +-------+ + + + + | Result panel 136 | + + + + + +-------+ + + | | 2022-04-30 | [facility] | 4.3 | (missing) | (missing) | | (unavailable | 19:11:08 | [facility] | | | | + + + +-------+ + + + + | Result panel 137 | + + + + + +--------+ + + | | 2022-04-30 | [facility] | 0.84 | (missing) | (missing) | | (unavailable | 19:11:08 | [facility] | | | | + + + +--------+ + + + + | Result panel 138 | + + + + + +-------+ + + | | 2022-04-30 | [facility] | 0.7 | (missing) | (missing) | | (unavailable | 19:11:08 | [facility] | | | | + + + +-------+ + + + + | Result panel 139 | + + + + + +------+ + + | | 2022-04-30 | [facility] | 15 | (missing) | (missing) | | (unavailable | 19:11:08 | [facility] | | | | + + + +------+ + + + + | Result panel 140 | + + + + + +------+ + + | | 2022-04-30 | [facility] | 20 | (missing) | (missing) | | (unavailable | 19:11:08 | [facility] | | | | + + + +------+ + + + + | Result panel 141 | + + + + + +-------+ + + | | 2022-04-30 | [facility] | 131 | (missing) | (missing) | | (unavailable | 19:11:08 | [facility] | | | | + + + +-------+ + + + + | Result panel 142 | + + + + + +------+ + + | | 2022-04-30 | [facility] | 88 | (missing) | (missing) | | (unavailable | 19:11:08 | [facility] | | | | + + + +------+ + + + + | Result panel 143 | + + + + + +--------+ + + | | 2022-04-30 | [facility] | 17.3 | (missing) | (missing) | | (unavailable | 19:11:08 | [facility] | | | | + + + +--------+ + + + + | Result panel 144 | + + + + + +--------+ + + | | 2022-04-30 | [facility] | 14.7 | (missing) | (missing) | | (unavailable | 19:11:08 | [facility] | | | | + + + +--------+ + + + + | Result panel 145 | + + + + + +--------+ + + | | 2022-04-30 | [facility] | 4.62 | (missing) | (missing) | | (unavailable | 19:11:08 | [facility] | | | | + + + +--------+ + + + + | Result panel 146 | + + + + + +--------+ + + | | 2022-04-30 | [facility] | 14.0 | (missing) | (missing) | | (unavailable | 19:11:08 | [facility] | | | | + + + +--------+ + + + + | Result panel 147 | + + + + + +--------+ + + | | 2022-04-30 | [facility] | 41.4 | (missing) | (missing) | | (unavailable | 19:11:08 | [facility] | | | | + + + +--------+ + + + + | Result panel 148 | + + + + + +--------+ + + | | 2022-04-30 | [facility] | 89.4 | (missing) | (missing) | | (unavailable | 19:11:08 | [facility] | | | | + + + +--------+ + + + + | Result panel 149 | + + + + + +--------+ + + | | 2022-04-30 | [facility] | 30.2 | (missing) | (missing) | | (unavailable | 19:11:08 | [facility] | | | | + + + +--------+ + + + + | Result panel 150 | + + + + + +--------+ + + | | 2022-04-30 | [facility] | 33.8 | (missing) | (missing) | | (unavailable | 19:11:08 | [facility] | | | | + + + +--------+ + + + + | Result panel 151 | + + + + + +--------+ + + | | 2022-04-30 | [facility] | 16.3 | (missing) | (missing) | | (unavailable | 19:11:08 | [facility] | | | | + + + +--------+ + + + + | Result panel 152 | + + + + + +-------+ + + | | 2022-04-30 | [facility] | 328 | (missing) | (missing) | | (unavailable | 19:11:08 | [facility] | | | | + + + +-------+ + + + + | Result panel 153 | + + + + + +--------+ + + | | 2022-04-30 | [facility] | 82.9 | (missing) | (missing) | | (unavailable | 19:11:08 | [facility] | | | | + + + +--------+ + + + + | Result panel 154 | + + + + + +--------+ + + | | 2022-04-30 | [facility] | 11.5 | (missing) | (missing) | | (unavailable | 19:11:08 | [facility] | | | | + + + +--------+ + + + + | Result panel 155 | + + + + + +-------+ + + | | 2022-04-30 | [facility] | 4.3 | (missing) | (missing) | | (unavailable | 19:11:08 | [facility] | | | | + + + +-------+ + + + + | Result panel 156 | + + + + + +-------+ + + | | 2022-04-30 | [facility] | 0.8 | (missing) | (missing) | | (unavailable | 19:11:08 | [facility] | | | | + + + +-------+ + + + + | Result panel 157 | + + + + + +-------+ + + | | 2022-04-30 | [facility] | 0.5 | (missing) | (missing) | | (unavailable | 19:11:08 | [facility] | | | | + + + +-------+ + + + + | Result panel 158 | + + + + + +-------+---------+ + | | 2022-04-30 | [facility] | 234 | mg/dL | (missing) | | (unavailable | 19:11:08 | [facility] | | | | + + + +-------+---------+ + + + | Result panel 159 | + + + + + +------+---------+ + | | 2022-04-30 | [facility] | 52 | mg/dL | (missing) | | (unavailable | 19:11:08 | [facility] | | | | + + + +------+---------+ + + + | Result panel 160 | + + + + + +--------+---------+ + | | 2022-04-30 | [facility] | 1.80 | mg/dL | (missing) | | (unavailable | 19:11:08 | [facility] | | | | + + + +--------+---------+ + + + | Result panel 161 | + + + + + +------+ + + | | 2022-04-30 | [facility] | 32 | (missing) | (missing) | | (unavailable | 19:11:08 | [facility] | | | | + + + +------+ + + + + | Result panel 162 | + + + + + +---------+ + + | | 2022-04-30 | [facility] | 28.88 | (missing) | (missing) | | (unavailable | 19:11:08 | [facility] | | | | + + + +---------+ + + + + | Result panel 163 | + + + + + +-------+ + + | | 2022-04-30 | [facility] | 136 | (missing) | (missing) | | (unavailable | 19:11:08 | [facility] | | | | + + + +-------+ + + + + | Result panel 164 | + + + + + +-------+ + + | | 2022-04-30 | [facility] | 2.9 | (missing) | (missing) | | (unavailable | 19:11:08 | [facility] | | | | + + + +-------+ + + + + | Result panel 165 | + + + + + +------+ + + | | 2022-04-30 | [facility] | 91 | (missing) | (missing) | | (unavailable | 19:11:08 | [facility] | | | | + + + +------+ + + + + | Result panel 166 | + + + + + +------+ + + | | 2022-04-30 | [facility] | 36 | (missing) | (missing) | | (unavailable | 19:11:08 | [facility] | | | | + + + +------+ + + + + | Result panel 167 | + + + + + +--------+ + + | | 2022-04-30 | [facility] | 11.9 | (missing) | (missing) | | (unavailable | 19:11:08 | [facility] | | | | + + + +--------+ + + + + | Result panel 168 | + + + + + +-------+---------+ + | | 2022-04-30 | [facility] | 9.6 | mg/dL | (missing) | | (unavailable | 19:11:08 | [facility] | | | | + + + +-------+---------+ + + + | Result panel 169 | + + + + + +-------+---------+ + | | 2022-04-30 | [facility] | 2.2 | mg/dL | (missing) | | (unavailable | 19:11:08 | [facility] | | | | + + + +-------+---------+ + + + | Result panel 170 | + + + + + +-------+ + + | | 2022-04-30 | [facility] | 7.9 | (missing) | (missing) | | (unavailable | 19:11:08 | [facility] | | | | + + + +-------+ + + + + | Result panel 171 | + + + + + +-------+ + + | | 2022-04-30 | [facility] | 3.6 | (missing) | (missing) | | (unavailable | 19:11:08 | [facility] | | | | + + + +-------+ + + + + | Result panel 172 | + + + + + + + + + | | 2022-04-30 | [facility] | NEGATIVE | (missing) | (missing) | | (unavailable | 20:07:08 | [facility] | | | | + + + + + + + + + | Result panel 173 | + + + + + + + + + | | 2022-04-30 | [facility] | NEGATIVE | (missing) | (missing) | | (unavailable | 20:07:08 | [facility] | | | | + + + + + + + + + | Result panel 174 | + + + + + + + + + | | 2022-04-30 | [facility] | NEGATIVE | (missing) | (missing) | | (unavailable | 20:07:08 | [facility] | | | | + + + + + + + + + | Result panel 175 | + + + + + + + + + | | 2022-04-30 | [facility] | NEGATIVE | (missing) | (missing) | | (unavailable | 20:07:08 | [facility] | | | | + + + + + + + + + | Result panel 176 | + + + + + + + + + | | 2022-04-30 | [facility] | POSITIVE | (missing) | (missing) | | (unavailable | 20:51:08 | [facility] | | | | + + + + + + + + + | Result panel 177 | + + + + + + + + + | | 2022-04-30 | [facility] | NEGATIVE | (missing) | (missing) | | (unavailable | 20:51:08 | [facility] | | | | + + + + + + + + + | Result panel 178 | + + + + + + + + + | | 2022-04-30 | [facility] | NEGATIVE | (missing) | (missing) | | (unavailable | 20:51:08 | [facility] | | | | + + + + + + + + + | Result panel 179 | + + + + + + + + + | | 2022-04-30 | [facility] | NEGATIVE | (missing) | (missing) | | (unavailable | 20:51:08 | [facility] | | | | + + + + + + + + + | Result panel 180 | + + + + + + + + + | | 2022-04-30 | [facility] | NEGATIVE | (missing) | (missing) | | (unavailable | 20:51:08 | [facility] | | | | + + + + + + + + + | Result panel 181 | + + + + + + + + + | | 2022-04-30 | [facility] | NEGATIVE | (missing) | (missing) | | (unavailable | 20:51:08 | [facility] | | | | + + + + + + + + + | Result panel 182 | + + + + + + + + + | | 2022-04-30 | [facility] | NEGATIVE | (missing) | (missing) | | (unavailable | 20:51:08 | [facility] | | | | + + + + + + + + + | Result panel 183 | + + + + + + + + + | | 2022-04-30 | [facility] | NEGATIVE | (missing) | (missing) | | (unavailable | 20:51:08 | [facility] | | | | + + + + + + + + + | Result panel 184 | + + + + + + + + + | | 2022-04-30 | [facility] | NEGATIVE | (missing) | (missing) | | (unavailable | 20:51:08 | [facility] | | | | + + + + + + + + + | Result panel 185 | + + + + + + + + + | | 2022-04-30 | [facility] | NEGATIVE | (missing) | (missing) | | (unavailable | 20:51:08 | [facility] | | | | + + + + + + + + + | Result panel 186 | + + + + + + + + + | | 2022-04-30 | [facility] | NEGATIVE | (missing) | (missing) | | (unavailable | 20:51:08 | [facility] | | | | + + + + + + + + + | Result panel 187 | + + + + + + + + + | | 2022-04-30 | [facility] | NEGATIVE | (missing) | (missing) | | (unavailable | 20:51:08 | [facility] | | | | + + + + + + + + + | Result panel 188 | + + + + + + + + + | | 2022-04-30 | [facility] | NEGATIVE | (missing) | (missing) | | (unavailable | 20:51:08 | [facility] | | | | + + + + + + + + + | Result panel 189 | + + + + + + + + + | | 2022-04-30 | [facility] | YELLOW | (missing) | (missing) | | (unavailable | 20:51:08 | [facility] | | | | + + + + + + + + + | Result panel 190 | + + + + + +---------+ + + | | 2022-04-30 | [facility] | CLEAR | (missing) | (missing) | | (unavailable | 20:51:08 | [facility] | | | | + + + +---------+ + + + + | Result panel 191 | + + + + + + + + + | | 2022-04-30 | [facility] | >=[id number] | (missing) | (missing) | | (unavailable | 20:51:08 | [facility] | | | | + + + + + + + + + | Result panel 192 | + + + + + + + + + | | 2022-04-30 | [facility] | NEGATIVE | (missing) | (missing) | | (unavailable | 20:51:08 | [facility] | | | | + + + + + + + + + | Result panel 193 | + + + + + + + + + | | 2022-04-30 | [facility] | NEGATIVE | (missing) | (missing) | | (unavailable | 20:51:08 | [facility] | | | | + + + + + + + + + | Result panel 194 | + + + + + +---------+ + + | | 2022-04-30 | [facility] | 1.010 | (missing) | (missing) | | (unavailable | 20:51:08 | [facility] | | | | + + + +---------+ + + + + | Result panel 195 | + + + + + + + + + | | 2022-04-30 | [facility] | TRACE-I | (missing) | (missing) | | (unavailable | 20:51:08 | [facility] | | | | + + + + + + + + + | Result panel 196 | + + + + + +-------+ + + | | 2022-04-30 | [facility] | 5.5 | (missing) | (missing) | | (unavailable | 20:51:08 | [facility] | | | | + + + +-------+ + + + + | Result panel 197 | + + + + + + + + + | | 2022-04-30 | [facility] | NEGATIVE | (missing) | (missing) | | (unavailable | 20:51:08 | [facility] | | | | + + + + + + + + + | Result panel 198 | + + + + + + + + + | | 2022-04-30 | [facility] | NORMAL | (missing) | (missing) | | (unavailable | 20:51:08 | [facility] | | | | + + + + + + + + + | Result panel 199 | + + + + + + + + + | | 2022-04-30 | [facility] | POSITIVE | (missing) | (missing) | | (unavailable | 20:51:08 | [facility] | | | | + + + + + + + + + | Result panel 200 | + + + + + + + + + | | 2022-04-30 | [facility] | NEGATIVE | (missing) | (missing) | | (unavailable | 20:51:08 | [facility] | | | | + + + + + + + + + | Result panel 201 | + + + + + +-------+ + + | | 2022-04-30 | [facility] | 0-1 | (missing) | (missing) | | (unavailable | 20:51:08 | [facility] | | | | + + + +-------+ + + + + | Result panel 202 | + + + + + +-------+ + + | | 2022-04-30 | [facility] | 4-6 | (missing) | (missing) | | (unavailable | 20:51:08 | [facility] | | | | + + + +-------+ + + + + | Result panel 203 | + + + + + + + + + | | 2022-04-30 | [facility] | SQUAMOUS 3+ | (missing) | (missing) | | (unavailable | 20:51:08 | [facility] | | | | + + + + + + + + + | Result panel 204 | + + + + + +------+ + + | | 2022-04-30 | [facility] | 3+ | (missing) | (missing) | | (unavailable | 20:51:08 | [facility] | | | | + + + +------+ + + + + | Result panel 205 | + + + + + +------+ + + | | 2022-04-30 | [facility] | No | (missing) | (missing) | | (unavailable | 20:51:08 | [facility] | | | | + + + +------+ + + + + | Result panel 206 | + + + + + + + + + | | 2022-04-30 | [facility] | CLEAN CATCH | (missing) | (missing) | | (unavailable | 20:51:08 | [facility] | | | | + + + + + + + + + | Result panel 207 | + + + + + + + + + | | 2022-08-08 | [facility] | YELLOW | (missing) | (missing) | | (unavailable | 21:12:07 | [facility] | | | | + + + + + + + + + | Result panel 208 | + + + + + +---------+ + + | | 2022-08-08 | [facility] | CLEAR | (missing) | (missing) | | (unavailable | 21:12:07 | [facility] | | | | + + + +---------+ + + + + | Result panel 209 | + + + + + + + + + | | 2022-08-08 | [facility] | >=1000 | (missing) | (missing) | | (unavailable | 21:12:07 | [facility] | | | | + + + + + + + + + | Result panel 210 | + + + + + + + + + | | 2022-08-08 | [facility] | NEGATIVE | (missing) | (missing) | | (unavailable | 21::07 | [facility] | | | | + + + + + + + + + | Result panel 211 | + + + + + + + + + | | 2022-08-08 | [facility] | NEGATIVE | (missing) | (missing) | | (unavailable | 21:12:07 | [facility] | | | | + + + + + + + + + | Result panel 212 | + + + + + +---------+ + + | | 2022-08-08 | [facility] | 1.010 | (missing) | (missing) | | (unavailable | 21:12:07 | [facility] | | | | + + + +---------+ + + + + | Result panel 213 | + + + + + + + + + | | 2022-08-08 | [facility] | TRACE-I | (missing) | (missing) | | (unavailable | 21:12:07 | [facility] | | | | + + + + + + + + + | Result panel 214 | + + + + + +-------+ + + | | 2022-08-08 | [facility] | 5.5 | (missing) | (missing) | | (unavailable | 21:12:07 | [facility] | | | | + + + +-------+ + + + + | Result panel 215 | + + + + + + + + + | | 2022-08-08 | [facility] | NEGATIVE | (missing) | (missing) | | (unavailable | 21:12:07 | [facility] | | | | + + + + + + + + + | Result panel 216 | + + + + + + + + + | | 2022-08-08 | [facility] | NORMAL | (missing) | (missing) | | (unavailable | 21:12:07 | [facility] | | | | + + + + + + + + + | Result panel 217 | + + + + + + + + + | | 2022-08-08 | [facility] | POSITIVE | (missing) | (missing) | | (unavailable | 21:12:07 | [facility] | | | | + + + + + + + + + | Result panel 218 | + + + + + + + + + | | 2022-08-08 | [facility] | NEGATIVE | (missing) | (missing) | | (unavailable | 21:12:07 | [facility] | | | | + + + + + + + + + | Result panel 219 | + + + + + +-------+ + + | | 2022-08-08 | [facility] | 2-3 | (missing) | (missing) | | (unavailable | : | [facility] | | | | + + + +-------+ + + + + | Result panel 220 | + + + + + +-------+ + + | | 2022-08-08 | [facility] | 4-6 | (missing) | (missing) | | (unavailable | | [facility] | | | | + + + +-------+ + + + + | Result panel 221 | + + + + + +-----+ + + | | 2022-08-08 | [facility] | 0 | (missing) | (missing) | | (unavailable | : | [facility] | | | | + + + +-----+ + + + + | Result panel 222 | + + + + + +------+ + + | | 2022-08-08 | [facility] | 2+ | (missing) | (missing) | | (unavailable | ::07 | [facility] | | | | + + + +------+ + + + + | Result panel 223 | + + + + + +-------+ + + | | 2022-08-08 | [facility] | Yes | (missing) | (missing) | | (unavailable | 21:12:07 | [facility] | | | | + + + +-------+ + + + + | Result panel 224 | + + + + + +--------+ + + | | 2022-08-08 | [facility] | 16.5 | (missing) | (missing) | | (unavailable | ::07 | [facility] | | | | + + + +--------+ + + + + | Result panel 225 | + + + + + +--------+ + + | | 2022-08-08 | [facility] | 85.6 | (missing) | (missing) | | (unavailable | 21:22:07 | [facility] | | | | + + + +--------+ + + + + | Result panel 226 | + + + + + +-------+ + + | | 2022-08-08 | [facility] | 9.3 | (missing) | (missing) | | (unavailable | ::07 | [facility] | | | | + + + +-------+ + + + + | Result panel 227 | + + + + + +-------+ + + | | 2022-08-08 | [facility] | 4.1 | (missing) | (missing) | | (unavailable | 21:22:07 | [facility] | | | | + + + +-------+ + + + + | Result panel 228 | + + + + + +-------+ + + | | 2022-08-08 | [facility] | 0.6 | (missing) | (missing) | | (unavailable | ::07 | [facility] | | | | + + + +-------+ + + + + | Result panel 229 | + + + + + +-------+ + + | | 2022-08-08 | [facility] | 0.4 | (missing) | (missing) | | (unavailable | 21::07 | [facility] | | | | + + + +-------+ + + + + | Result panel 230 | + + + + + +--------+ + + | | 2022-08-08 | [facility] | 4.46 | (missing) | (missing) | | (unavailable | :07 | [facility] | | | | + + + +--------+ + + + + | Result panel 231 | + + + + + +--------+ + + | | 2022-08-08 | [facility] | 13.8 | (missing) | (missing) | | (unavailable | 21:22:07 | [facility] | | | | + + + +--------+ + + + + | Result panel 232 | + + + + + +-------+---------+ + | | 2022-08-08 | [facility] | 206 | mg/dL | (missing) | | (unavailable | 21:22:07 | [facility] | | | | + + + +-------+---------+ + + + | Result panel 233 | + + + + + +------+---------+ + | | 2022-08-08 | [facility] | 72 | mg/dL | (missing) | | (unavailable | ::07 | [facility] | | | | + + + +------+---------+ + + + | Result panel 234 | + + + + + +--------+---------+ + | | 2022-08-08 | [facility] | 1.99 | mg/dL | (missing) | | (unavailable | ::07 | [facility] | | | | + + + +--------+---------+ + + + | Result panel 235 | + + + + + +------+ + + | | 2022-08-08 | [facility] | 29 | (missing) | (missing) | | (unavailable | 21:22:07 | [facility] | | | | + + + +------+ + + + + | Result panel 236 | + + + + + +---------+ + + | | 2022-08-08 | [facility] | 36.18 | (missing) | (missing) | | (unavailable | 21:22:07 | [facility] | | | | + + + +---------+ + + + + | Result panel 237 | + + + + + +-------+ + + | | 2022-08-08 | [facility] | 137 | (missing) | (missing) | | (unavailable | 21:22:07 | [facility] | | | | + + + +-------+ + + + + | Result panel 238 | + + + + + +-------+ + + | | 2022-08-08 | [facility] | 2.7 | (missing) | (missing) | | (unavailable | 21:22:07 | [facility] | | | | + + + +-------+ + + + + | Result panel 239 | + + + + + +------+ + + | | 2022-08-08 | [facility] | 92 | (missing) | (missing) | | (unavailable | 21:22:07 | [facility] | | | | + + + +------+ + + + + | Result panel 240 | + + + + + +--------+ + + | | 2022-08-08 | [facility] | 40.2 | (missing) | (missing) | | (unavailable | 21:22:07 | [facility] | | | | + + + +--------+ + + + + | Result panel 241 | + + + + + +------+ + + | | 2022-08-08 | [facility] | 33 | (missing) | (missing) | | (unavailable | 21::07 | [facility] | | | | + + + +------+ + + + + | Result panel 242 | + + + + + +--------+ + + | | 2022-08-08 | [facility] | 14.7 | (missing) | (missing) | | (unavailable | 21::07 | [facility] | | | | + + + +--------+ + + + + | Result panel 243 | + + + + + +-------+---------+ + | | 2022-08-08 | [facility] | 9.0 | mg/dL | (missing) | | (unavailable | ::07 | [facility] | | | | + + + +-------+---------+ + + + | Result panel 244 | + + + + + +-------+---------+ + | | 2022-08-08 | [facility] | 2.4 | mg/dL | (missing) | | (unavailable | ::07 | [facility] | | | | + + + +-------+---------+ + + + | Result panel 245 | + + + + + +-------+ + + | | 2022-08-08 | [facility] | 8.2 | (missing) | (missing) | | (unavailable | ::07 | [facility] | | | | + + + +-------+ + + + + | Result panel 246 | + + + + + +-------+ + + | | 2022-08-08 | [facility] | 3.6 | (missing) | (missing) | | (unavailable | ::07 | [facility] | | | | + + + +-------+ + + + + | Result panel 247 | + + + + + +-------+ + + | | 2022-08-08 | [facility] | 4.6 | (missing) | (missing) | | (unavailable | 21:22:07 | [facility] | | | | + + + +-------+ + + + + | Result panel 248 | + + + + + +--------+ + + | | 2022-08-08 | [facility] | 0.78 | (missing) | (missing) | | (unavailable | 21:22:07 | [facility] | | | | + + + +--------+ + + + + | Result panel 249 | + + + + + +-------+ + + | | 2022-08-08 | [facility] | 0.6 | (missing) | (missing) | | (unavailable | 21:22:07 | [facility] | | | | + + + +-------+ + + + + | Result panel 250 | + + + + + +------+ + + | | 2022-08-08 | [facility] | 13 | (missing) | (missing) | | (unavailable | 21:22:07 | [facility] | | | | + + + +------+ + + + + | Result panel 251 | + + + + + +--------+ + + | | 2022-08-08 | [facility] | 90.1 | (missing) | (missing) | | (unavailable | 21:22:07 | [facility] | | | | + + + +--------+ + + + + | Result panel 252 | + + + + + +------+ + + | | 2022-08-08 | [facility] | 19 | (missing) | (missing) | | (unavailable | 21:22:07 | [facility] | | | | + + + +------+ + + + + | Result panel 253 | + + + + + +-------+ + + | | 2022-08-08 | [facility] | 135 | (missing) | (missing) | | (unavailable | 21::07 | [facility] | | | | + + + +-------+ + + + + | Result panel 254 | + + + + + +------+ + + | | 2022-08-08 | [facility] | 50 | (missing) | (missing) | | (unavailable | 21:22:07 | [facility] | | | | + + + +------+ + + + + | Result panel 255 | + + + + + +--------+ + + | | 2022-08-08 | [facility] | 11.3 | (missing) | (missing) | | (unavailable | 21:22:07 | [facility] | | | | + + + +--------+ + + + + | Result panel 256 | + + + + + +--------+ + + | | 2022-08-08 | [facility] | 30.9 | (missing) | (missing) | | (unavailable | 21:22:07 | [facility] | | | | + + + +--------+ + + + + | Result panel 257 | + + + + + +--------+ + + | | 2022-08-08 | [facility] | 34.3 | (missing) | (missing) | | (unavailable | 21:22:07 | [facility] | | | | + + + +--------+ + + + + | Result panel 258 | + + + + + +--------+ + + | | 2022-08-08 | [facility] | 15.0 | (missing) | (missing) | | (unavailable | 21:22:07 | [facility] | | | | + + + +--------+ + + + + | Result panel 259 | + + + + + +-------+ + + | | 2022-08-08 | [facility] | 349 | (missing) | (missing) | | (unavailable | 21:22:07 | [facility] | | | | + + + +-------+ + + Social History No information. Vital Signs + + + +---------+ | date | measurement | value | units | + + + +---------+ | 2021-12-03 00:00 | BMI | 45.5 | kg/m2 | + + + +---------+ | 2021-12-03 00:00 | height_metric | 170.18 | cm | + + + +---------+ | 2021-12-03 00:00 | height_standard | 67 | in | + + + +---------+ | 2021-12-03 00:00 | weight_metric | 131.66 | kg | + + + +---------+ | 2021-12-03 00:00 | weight_standard | 290.25 | lb | + + + +---------+ | 2021-12-03 00:00 | weight_standard | 290.26 | lb | + + + +---------+ | 2021-12-04 00:00 | BP_diastolic | 59 | mmHg | + + + +---------+ | 2021-12-04 00:00 | BP_systolic | 131 | mmHg | + + + +---------+ | 2021-12-04 00:00 | heart_rate | 89 | /min | + + + +---------+ | 2021-12-04 00:00 | o2_saturation | 98 | % | + + + +---------+ | 2021-12-04 00:00 | respiration_rate | 18 | /min | + + + +---------+ | 2021-12-04 00:00 | temperature_metric | 36.78 | C | | | | | | + + + +---------+ | 2021-12-04 00:00 | | 98.2 | F | | | temperature_standar | | | | | d | | | + + + +---------+ | 2022-02-14 00:00 | BMI | 49.1 | kg/m2 | + + + +---------+ | 2022-02-14 00:00 | BP_diastolic | 58 | mmHg | + + + +---------+ | 2022-02-14 00:00 | BP_systolic | 140 | mmHg | + + + +---------+ | 2022-02-14 00:00 | heart_rate | 82 | /min | + + + +---------+ | 2022-02-14 00:00 | height_metric | 170.18 | cm | + + + +---------+ | 2022-02-14 00:00 | height_standard | 67 | in | + + + +---------+ | 2022-02-14 00:00 | o2_saturation | 96 | % | + + + +---------+ | 2022-02-14 00:00 | respiration_rate | 20 | /min | + + + +---------+ | 2022-02-14 00:00 | temperature_metric | 36.56 | C | | | | | | + + + +---------+ | 2022-02-14 00:00 | | 97.8 | F | | | temperature_standar | | | | | d | | | + + + +---------+ | 2022-02-14 00:00 | weight_metric | 142.1 | kg | + + + +---------+ | 2022-02-14 00:00 | weight_standard | 313.28 | lb | + + + +---------+ | 2022-04-02 00:00 | BMI | 46.5 | kg/m2 | + + + +---------+ | 2022-04-02 00:00 | BP_diastolic | 98 | mmHg | + + + +---------+ | 2022-04-02 00:00 | BP_systolic | 142 | mmHg | + + + +---------+ | 2022-04-02 00:00 | heart_rate | 83 | /min | + + + +---------+ | 2022-04-02 00:00 | height_metric | 170.18 | cm | + + + +---------+ | 2022-04-02 00:00 | height_standard | 67 | in | + + + +---------+ | 2022-04-02 00:00 | o2_saturation | 94 | % | + + + +---------+ | 2022-04-02 00:00 | respiration_rate | 16 | /min | + + + +---------+ | 2022-04-02 00:00 | temperature_metric | 37 | C | | | | | | + + + +---------+ | 2022-04-02 00:00 | | 98.6 | F | | | temperature_standar | | | | | d | | | + + + +---------+ | 2022-04-02 00:00 | weight_metric | 134.58 | kg | + + + +---------+ | 2022-04-02 00:00 | weight_standard | 296.69 | lb | + + + +---------+ | 2022-04-02 00:00 | weight_standard | 296.7 | lb | + + + +---------+ | 2022-04-30 00:00 | BMI | 46.5 | kg/m2 | + + + +---------+ | 2022-04-30 00:00 | BP_diastolic | 79 | mmHg | + + + +---------+ | 2022-04-30 00:00 | BP_systolic | 128 | mmHg | + + + +---------+ | 2022-04-30 00:00 | heart_rate | 87 | /min | + + + +---------+ | 2022-04-30 00:00 | height_metric | 170.18 | cm | + + + +---------+ | 2022-04-30 00:00 | height_standard | 67 | in | + + + +---------+ | 2022-04-30 00:00 | o2_saturation | 96 | % | + + + +---------+ | 2022-04-30 00:00 | respiration_rate | 20 | /min | + + + +---------+ | 2022-04-30 00:00 | temperature_metric | 36.11 | C | | | | | | + + + +---------+ | 2022-04-30 00:00 | | 97 | F | | | temperature_standar | | | | | d | | | + + + +---------+ | 2022-04-30 00:00 | weight_metric | 134.58 | kg | + + + +---------+ | 2022-04-30 00:00 | weight_standard | 296.69 | lb | + + + +---------+ | 2022-04-30 00:00 | weight_standard | 296.7 | lb | + + + +---------+ | 2022-08-08 00:00 | BMI | 46.4 | kg/m2 | + + + +---------+ | 2022-08-08 00:00 | height_metric | 170.18 | cm | + + + +---------+ | 2022-08-08 00:00 | height_standard | 67 | in | + + + +---------+ | 2022-08-08 00:00 | weight_metric | 134.26 | kg | + + + +---------+ | 2022-08-08 00:00 | weight_standard | 295.99 | lb | + + + +---------+ | 2022-08-08 00:00 | weight_standard | 296 | lb | + + + +---------+ | 2022-08-09 00:00 | BP_diastolic | 83 | mmHg | + + + +---------+ | 2022-08-09 00:00 | BP_systolic | 144 | mmHg | + + + +---------+ | 2022-08-09 00:00 | heart_rate | 88 | /min | + + + +---------+ | 2022-08-09 00:00 | o2_saturation | 95 | % | + + + +---------+ | 2022-08-09 00:00 | respiration_rate | 17 | /min | + + + +---------+ | 2022-08-09 00:00 | temperature_metric | 36.72 | C | | | | | | + + + +---------+ | 2022-08-09 00:00 | | 98.1 | F | | | temperature_standar | | | | | d | | | + + + +---------+"
--- OUTSIDE RECORDS SUMMARY | ~2022-10-19 | XMS | Continuity of Care Document ---
Demographics + + + | Address | [address] | | | [place] [address] | + + + | Preferred Language | Unknown | + + + | Marital Status | | + + + | Alevism Affiliation | Unknown | + + + | Race | White | + + + | Ethnic Group | Not or | + + + Author + + + | Author | [facility] | + + + | Organization | [facility] | + + + | Address | [address] | | | [place] [address] | + + + | Phone | | + + + Care Team Providers + + + + | [employer] Name | Role | Phone | + [...] + + + | (no date) | Penicillins | [facility] | (no reaction) | (no severity) | + + + + + + | (no date) | codeine | [facility] | (no reaction) | (no severity) | + + + + + + | (no date) | erythromycin | [facility] | (no reaction) | (no severity) | | | base | | | | + + + + + + | (no date) | | [facility] | (no reaction) | (no severity) | | | sulfamethoxazol | | | | | | e | | | | + + + + + + | (no date) | trimethoprim | [facility] | (no reaction) | (no severity) | + + + + + + | (no date) | meperidine | [facility] | (no reaction) | (no severity) | + + + + + + | (no date) | levofloxacin | [facility] | (no reaction) | (no severity) | + + + + + + [...] + | 2020-05-18 00:00 | Tdap | [facility] | + + + + | 2020-05-18 00:00 | Tdap | [facility] | + + + + | 2020-05-18 00:00 | Tdap | [facility] | + + + + | 2021-12-04 00:00 | Influenza, Injectable, | [facility] | | | Quadrivalent, Preservative | | + + + + | 2022-02-14 00:00 | Influenza, Injectable, | [facility] | | | Quadrivalent, Preservative | | + + + + | 2022-04-06 00:00 | Influenza, Injectable, | [facility] | | | Quadrivalent, Preservative | | + + + + | 2022-04-30 00:00 | Influenza, Injectable, | [facility] | | | Quadrivalent, Preservative | | + + + + | 2022-08-09 00:00 | Influenza, Injectable, | [facility] | | | Quadrivalent, Preservative | | + + + + Medications + + + + | date | description | facility | + + + + | 2021-12-04 00:00 | FAMOTIDINE | [facility] | + + + + | 2022-08-09 00:00 | ONDANSETRON | [facility] | + + + + | 2019-07-17 00:00 | ONDANSETRON HCL | [facility] | + + + + | 2019-07-17 00:00 | ONDANSETRON HCL | [facility] | + + + + | 2019-07-17 00:00 | ONDANSETRON HCL | [facility] | + + + + | 2021-12-04 00:00 | LAMOTRIGINE | [facility] | + + + + | 2022-02-14 00:00 | LAMOTRIGINE | [facility] | + + + + | 2022-04-06 00:00 | LAMOTRIGINE | [facility] | + + + + | 2022-04-30 00:00 | LAMOTRIGINE | [facility] | + + + + | 2022-08-09 00:00 | LAMOTRIGINE | [facility] | + + + + | 2021-12-04 00:00 | ALPRAZOLAM | [facility] | + + + + | 2022-02-14 00:00 | ALPRAZOLAM | [facility] | + + + + | 2022-04-06 00:00 | ALPRAZOLAM | [facility] | + + + + | 2022-04-30 00:00 | ALPRAZOLAM | [facility] | + + + + | 2022-08-09 00:00 | ALPRAZOLAM | [facility] | + + + + | 2022-04-30 00:00 | POTASSIUM CHLORIDE | [facility] | + + + + | 2021-12-04 00:00 | EMPAGLIFLOZIN | [facility] | + + + + | 2022-02-14 00:00 | EMPAGLIFLOZIN | [facility] | + + + + | 2022-04-06 00:00 | EMPAGLIFLOZIN | [facility] | + + + + | 2022-04-30 00:00 | EMPAGLIFLOZIN | [facility] | + + + + | 2022-08-09 00:00 | EMPAGLIFLOZIN | [facility] | + + + + | 2021-12-04 00:00 | DOXYCYCLINE HYCLATE | [facility] | + + + + | 2022-02-14 00:00 | DOXYCYCLINE HYCLATE | [facility] | + + + + | 2022-04-06 00:00 | DOXYCYCLINE HYCLATE | [facility] | + + + + | 2022-04-30 00:00 | DOXYCYCLINE HYCLATE | [facility] | + + + + | 2022-08-09 00:00 | DOXYCYCLINE HYCLATE | [facility] | + + + + | 2021-12-04 00:00 | Insulin Aspart | [facility] | + + + + | 2022-02-14 00:00 | Insulin Aspart | [facility] | + + + + | 2022-04-06 00:00 | Insulin Aspart | [facility] | + + + + | 2022-04-30 00:00 | Insulin Aspart | [facility] | + + + + | 2022-08-09 00:00 | Insulin Aspart | [facility] | + + + + | 2021-12-04 00:00 | Insulin | [facility] | | | Carolyn Flores | | + + + + | 2022-02-14 00:00 | Insulin | [facility] | | | Gladejae,[email or web address] | | + + + + | 2022-04-06 00:00 | Insulin | [facility] | | | Glacarlos enriquegine,Hum.[email or web address] | | + + + + | 2022-04-30 00:00 | Insulin | [facility] | | | Glargine,Hum.[email or web address] | | + + + + | 2022-08-09 00:00 | Insulin | [facility] | | | Glargine,[email or web address] | | + + + + | 2021-12-04 00:00 | LISINOPRIL | [facility] | + + + + | 2022-02-14 00:00 | LISINOPRIL | [facility] | + + + + | 2022-04-06 00:00 | LISINOPRIL | [facility] | + + + + | 2022-04-30 00:00 | LISINOPRIL | [facility] | + + + + | 2022-08-09 00:00 | LISINOPRIL | [facility] | + + + + | 2021-12-04 00:00 | METOLAZONE | [facility] | + + + + | 2022-02-14 00:00 | METOLAZONE | [facility] | + + + + | 2022-04-06 00:00 | METOLAZONE | [facility] | + + + + | 2022-04-30 00:00 | METOLAZONE | [facility] | + + + + | 2022-08-09 00:00 | METOLAZONE | [facility] | + + + + | 2021-12-04 00:00 | POTASSIUM CHLORIDE | [facility] | + + + + | 2021-12-04 00:00 | TORSEMIDE | [facility] | + + + + | 2022-02-14 00:00 | TORSEMIDE | [facility] | + + + + | 2022-04-06 00:00 | TORSEMIDE | [facility] | + + + + | 2022-04-30 00:00 | TORSEMIDE | [facility] | + + + + | 2022-08-09 00:00 | TORSEMIDE | [facility] | + + + + | 2022-02-14 00:00 | MELATONIN | [facility] | + + + + | 2021-12-04 00:00 | CARVEDILOL | [facility] | + + + + | 2022-02-14 00:00 | CARVEDILOL | [facility] | + + + + | 2022-04-06 00:00 | CARVEDILOL | [facility] | + + + + | 2022-04-30 00:00 | CARVEDILOL | [facility] | + + + + | 2022-08-09 00:00 | CARVEDILOL | [facility] | + + + + | 2021-12-04 00:00 | OMEPRAZOLE | [facility] | + + + + | 2022-02-14 00:00 | OMEPRAZOLE | [facility] | + + + + | 2022-04-06 00:00 | OMEPRAZOLE | [facility] | + + + + | 2022-04-30 00:00 | OMEPRAZOLE | [facility] | + + + + | 2022-08-09 00:00 | OMEPRAZOLE | [facility] | + + + + | 2022-04-02 00:00 | METOCLOPRAMIDE HCL | [facility] | + + + + | 2022-04-02 00:00 | METOCLOPRAMIDE HCL | [facility] | + + + + | 2022-08-09 00:00 | METOCLOPRAMIDE HCL | [facility] | + + + + | 2017-12-24 00:00 | CEPHALEXIN | [facility] | + + + + | 2017-12-24 00:00 | CEPHALEXIN | [facility] | + + + + | 2017-12-24 00:00 | CEPHALEXIN | [facility] | + + + + | 2021-12-04 00:00 | FLUOXETINE HCL | [facility] | + + + + | 2022-02-14 00:00 | FLUOXETINE HCL | [facility] | + + + + | 2022-04-06 00:00 | FLUOXETINE HCL | [facility] | + + + + | 2022-04-30 00:00 | FLUOXETINE HCL | [facility] | + + + + | 2022-08-09 00:00 | FLUOXETINE HCL | [facility] | + + + + | 2021-12-04 00:00 | Torsemide | [facility] | + + + + | 2022-02-14 00:00 | Torsemide | [facility] | + + + + | 2022-04-06 00:00 | Torsemide | [facility] | + + + + | 2022-04-30 00:00 | Torsemide | [facility] | + + + + | 2022-08-09 00:00 | Torsemide | [facility] | + + + + | 2022-04-30 00:00 | BENZONATATE | [facility] | + + + + | 2021-12-04 00:00 | PANTOPRAZOLE SODIUM | [facility] | + + + + | 2022-02-14 00:00 | PANTOPRAZOLE SODIUM | [facility] | + + + + | 2022-04-06 00:00 | PANTOPRAZOLE SODIUM | [facility] | + + + + | 2022-04-30 00:00 | PANTOPRAZOLE SODIUM | [facility] | + + + + | 2022-08-09 00:00 | PANTOPRAZOLE SODIUM | [facility] | + + + + | 2021-12-04 00:00 | INSULIN GLARGINE | [facility] | + + + + | 2022-02-14 00:00 | INSULIN GLARGINE | [facility] | + + + + | 2022-04-06 00:00 | INSULIN GLARGINE | [facility] | + + + + | 2022-04-30 00:00 | INSULIN GLARGINE | [facility] | + + + + | 2022-08-09 00:00 | INSULIN GLARGINE | [facility] | + + + + | 2022-08-09 00:00 | CEPHALEXIN | [facility] | + + + + | 2021-12-04 00:00 | CLOPIDOGREL BISULFATE | [facility] | + + + + | 2022-02-14 00:00 | CLOPIDOGREL BISULFATE | [facility] | + + + + | 2022-04-06 00:00 | CLOPIDOGREL BISULFATE | [facility] | + + + + | 2022-04-30 00:00 | CLOPIDOGREL BISULFATE | [facility] | + + + + | 2022-08-09 00:00 | CLOPIDOGREL BISULFATE | [facility] | + + + + | 2021-12-04 00:00 | FAMOTIDINE | [facility] | + + + + | 2022-02-14 00:00 | FAMOTIDINE | [facility] | + + + + | 2022-04-06 00:00 | FAMOTIDINE | [facility] | + + + + | 2022-04-30 00:00 | FAMOTIDINE | [facility] | + + + + | 2022-08-09 00:00 | FAMOTIDINE | [facility] | + + + + | 2021-12-04 00:00 | GABAPENTIN | [facility] | + + + + | 2022-02-14 00:00 | GABAPENTIN | [facility] | + + + + | 2022-04-06 00:00 | GABAPENTIN | [facility] | + + + + | 2022-04-30 00:00 | GABAPENTIN | [facility] | + + + + | 2022-08-09 00:00 | GABAPENTIN | [facility] | + + + + | 2021-12-04 00:00 | GABAPENTIN | [facility] | + + + + | 2022-02-14 00:00 | GABAPENTIN | [facility] | + + + + | 2022-04-06 00:00 | GABAPENTIN | [facility] | + + + + | 2022-04-30 00:00 | GABAPENTIN | [facility] | + + + + | 2022-08-09 00:00 | GABAPENTIN | [facility] | + + + + | 2021-12-04 00:00 | METOCLOPRAMIDE HCL | [facility] | + + + + | 2022-02-14 00:00 | METOCLOPRAMIDE HCL | [facility] | + + + + | 2022-04-06 00:00 | METOCLOPRAMIDE HCL | [facility] | + + + + | 2022-04-30 00:00 | METOCLOPRAMIDE HCL | [facility] | + + + + | 2022-08-09 00:00 | METOCLOPRAMIDE HCL | [facility] | + + + + | 2019-05-29 00:00 | ONDANSETRON | [facility] | + + + + | 2019-05-29 00:00 | ONDANSETRON | [facility] | + + + + | 2019-05-29 00:00 | ONDANSETRON | [facility] | + + + + | 2022-04-02 00:00 | ONDANSETRON | [facility] | + + + + | 2022-04-02 00:00 | ONDANSETRON | [facility] | + + + + | 2022-04-30 00:00 | ONDANSETRON | [facility] | + + + + | 2019-05-12 00:00 | predniSONE | [facility] | + + + + | 2019-05-12 00:00 | predniSONE | [facility] | + + + + | 2019-05-12 00:00 | predniSONE | [facility] | + + + + | 2021-12-04 00:00 | FUROSEMIDE | [facility] | + + + + | 2022-02-14 00:00 | FUROSEMIDE | [facility] | + + + + | 2022-04-06 00:00 | FUROSEMIDE | [facility] | + + + + | 2022-04-30 00:00 | FUROSEMIDE | [facility] | + + + + | 2022-08-09 00:00 | FUROSEMIDE | [facility] | + + + + | 2021-12-04 00:00 | LISINOPRIL | [facility] | + + + + | 2022-02-14 00:00 | LISINOPRIL | [facility] | + + + + | 2022-04-06 00:00 | LISINOPRIL | [facility] | + + + + | 2022-04-30 00:00 | LISINOPRIL | [facility] | + + + + | 2022-08-09 00:00 | LISINOPRIL | [facility] | + + + + | 2021-12-04 00:00 | PIOGLITAZONE HCL | [facility] | + + + + | 2022-02-14 00:00 | PIOGLITAZONE HCL | [facility] | + + + + | 2022-04-06 00:00 | PIOGLITAZONE HCL | [facility] | + + + + | 2022-04-30 00:00 | PIOGLITAZONE HCL | [facility] | + + + + | 2022-08-09 00:00 | PIOGLITAZONE HCL | [facility] | + + + + | 2021-12-04 00:00 | Insulin Aspart | [facility] | + + + + | 2022-02-14 00:00 | Insulin Aspart | [facility] | + + + + | 2022-04-06 00:00 | Insulin Aspart | [facility] | + + + + | 2022-04-30 00:00 | Insulin Aspart | [facility] | + + + + | 2022-08-09 00:00 | Insulin Aspart | [facility] | + + + + | 2021-12-04 00:00 | TIZANIDINE HCL | [facility] | + + + + | 2022-02-14 00:00 | TIZANIDINE HCL | [facility] | + + + + | 2022-04-06 00:00 | TIZANIDINE HCL | [facility] | + + + + | 2022-04-30 00:00 | TIZANIDINE HCL | [facility] | + + + + | 2022-08-09 00:00 | TIZANIDINE HCL | [facility] | + + + + | 2021-12-04 00:00 | DULOXETINE HCL | [facility] | + + + + | 2022-02-14 00:00 | DULOXETINE HCL | [facility] | + + + + | 2022-04-06 00:00 | DULOXETINE HCL | [facility] | + + + + | 2022-04-30 00:00 | DULOXETINE HCL | [facility] | + + + + | 2022-08-09 00:00 | DULOXETINE HCL | [facility] | + + + + | 2021-12-04 00:00 | ARIPIPRAZOLE | [facility] | + + + + | 2022-02-14 00:00 | ARIPIPRAZOLE | [facility] | + + + + | 2022-04-06 00:00 | ARIPIPRAZOLE | [facility] | + + + + | 2022-04-30 00:00 | ARIPIPRAZOLE | [facility] | + + + + | 2022-08-09 00:00 | ARIPIPRAZOLE | [facility] | + + + + | 2021-12-04 00:00 | DULOXETINE HCL | [facility] | + + + + | 2022-02-14 00:00 | DULOXETINE HCL | [facility] | + + + + | 2022-04-06 00:00 | DULOXETINE HCL | [facility] | + + + + | 2022-04-30 00:00 | DULOXETINE HCL | [facility] | + + + + | 2022-08-09 00:00 | DULOXETINE HCL | [facility] | + + + + | 2021-12-04 00:00 | AMOXICILLIN/POTASSIUM CLAV | [facility] | | | | | + + + + | 2022-02-14 00:00 | AMOXICILLIN/POTASSIUM CLAV | [facility] | | | | | + + + + | 2022-04-06 00:00 | AMOXICILLIN/POTASSIUM CLAV | [facility] | | | | | + + + + | 2022-04-30 00:00 | AMOXICILLIN/POTASSIUM CLAV | [facility] | | | | | + + + + | 2022-08-09 00:00 | AMOXICILLIN/POTASSIUM CLAV | [facility] | | | | | + + + + | 2022-02-14 00:00 | Diclofenac Sodium | [facility] | + + + + | 2022-04-06 00:00 | Diclofenac Sodium | [facility] | + + + + | 2022-04-30 00:00 | Diclofenac Sodium | [facility] | + + + + | 2022-08-09 00:00 | Diclofenac Sodium | [facility] | + + + + | 2020-07-08 00:00 | HYDROCODONE | [facility] | | | BIT/ACETAMINOPHEN | | + + + + | 2020-07-08 00:00 | HYDROCODONE | [facility] | | | BIT/ACETAMINOPHEN | | + + + + | 2020-07-08 00:00 | HYDROCODONE | [facility] | | | BIT/ACETAMINOPHEN | | + + + + | 2021-12-04 00:00 | ALBUTEROL SULFATE | [facility] | + + + + | 2022-02-14 00:00 | ALBUTEROL SULFATE | [facility] | + + + + | 2022-04-06 00:00 | ALBUTEROL SULFATE | [facility] | + + + + | 2022-04-30 00:00 | ALBUTEROL SULFATE | [facility] | + + + + | 2022-08-09 00:00 | ALBUTEROL SULFATE | [facility] | + + + + | 2021-12-04 00:00 | Rosuvastatin Calcium | [facility] | + + + + | 2022-02-14 00:00 | Rosuvastatin Calcium | [facility] | + + + + | 2022-04-06 00:00 | Rosuvastatin Calcium | [facility] | + + + + | 2022-04-30 00:00 | Rosuvastatin Calcium | [facility] | + + + + | 2022-08-09 00:00 | Rosuvastatin Calcium | [facility] | + + + + | 2021-12-04 00:00 | ROSUVASTATIN CALCIUM | [facility] | + + + + | 2022-02-14 00:00 | ROSUVASTATIN CALCIUM | [facility] | + + + + | 2022-04-06 00:00 | ROSUVASTATIN CALCIUM | [facility] | + + + + | 2022-04-30 00:00 | ROSUVASTATIN CALCIUM | [facility] | + + + + | 2022-08-09 00:00 | ROSUVASTATIN CALCIUM | [facility] | + + + + | 2021-12-04 00:00 | METFORMIN HCL | [facility] | + + + + | 2022-02-14 00:00 | METFORMIN HCL | [facility] | + + + + | 2022-04-06 00:00 | METFORMIN HCL | [facility] | + + + + | 2022-04-30 00:00 | METFORMIN HCL | [facility] | + + + + | 2022-08-09 00:00 | METFORMIN HCL | [facility] | + + + + | 2021-12-04 00:00 | FLUTICASONE PROPIONATE 220 | [facility] | | | [facility] | | + + + + | 2022-02-14 00:00 | FLUTICASONE PROPIONATE 220 | [facility] | | | [facility] | | + + + + | 2022-04-06 00:00 | FLUTICASONE PROPIONATE 220 | [facility] | | | [facility] | | + + + + | 2022-04-30 00:00 | FLUTICASONE PROPIONATE 220 | [facility] | | | [facility] | | + + + + | 2022-08-09 00:00 | FLUTICASONE PROPIONATE 220 | [facility] | | | [facility] | | + + + + | 2019-05-29 00:00 | PROMETHAZINE HCL | [facility] | + + + + | 2019-05-29 00:00 | PROMETHAZINE HCL | [facility] | + + + + | 2019-05-29 00:00 | PROMETHAZINE HCL | [facility] | + + + + | 2019-07-17 00:00 | PROMETHAZINE HCL | [facility] | + + + + | 2019-07-17 00:00 | PROMETHAZINE HCL | [facility] | + + + + | 2019-07-17 00:00 | PROMETHAZINE HCL | [facility] | + + + + Problems + + + + | date | description | facility | + + + + | 2017-12-24 00:00 | Acute bronchitis | [facility] | + + + + | 2017-12-24 00:00 | Acute bronchitis | [facility] | + + + + | 2017-12-24 00:00 | Acute bronchitis | [facility] | + + + + | 2017-12-24 00:00 | Ulcer of left foot | [facility] | + + + + | 2017-12-24 00:00 | Ulcer of left foot | [facility] | + + + + | 2017-12-24 00:00 | Ulcer of left foot | [facility] | + + + + | 2018-06-02 00:00 | Diverticulitis | [facility] | + + + + | 2018-06-02 00:00 | Diverticulitis | [facility] | + + + + | 2018-06-02 00:00 | Diverticulitis | [facility] | + + + + | 2018-06-02 00:00 | Nausea | [facility] | + + + + | 2018-06-02 00:00 | Nausea | [facility] | + + + + | 2018-06-02 00:00 | Nausea | [facility] | + + + + | 2018-06-02 00:00 | Vomiting | [facility] | + + + + | 2018-06-02 00:00 | Vomiting | [facility] | + + + + | 2018-06-02 00:00 | Vomiting | [facility] | + + + + | 2018-10-18 00:00 | Dehydration | [facility] | + + + + | 2018-10-18 00:00 | Dehydration | [facility] | + + + + | 2018-10-18 00:00 | Dehydration | [facility] | + + + + | 2019-05-12 00:00 | Congestive heart failure | [facility] | + + + + | 2019-05-12 00:00 | Congestive heart failure | [facility] | + + + + | 2019-05-12 00:00 | Congestive heart failure | [facility] | + + + + | 2019-05-12 00:00 | Acute bronchitis with | [facility] | | | chronic obstructive | | | | pulmonary disease (COPD) | | + + + + | 2019-05-12 00:00 | Acute bronchitis with | [facility] | | | chronic obstructive | | | | pulmonary disease (COPD) | | + + + + | 2019-05-12 00:00 | Acute bronchitis with | [facility] | | | chronic obstructive | | | | pulmonary disease (COPD) | | + + + + | 2019-05-29 00:00 | Acute gastroenteritis | [facility] | + + + + | 2019-05-29 00:00 | Acute gastroenteritis | [facility] | + + + + | 2019-05-29 00:00 | Acute gastroenteritis | [facility] | + + + + 2019-09-08 00:00 | Gastroenteritis | [facility] | + + + + | 2019-09-08 00:00 | Gastroenteritis | [facility] | + + + + | 2019-09-08 00:00 | Gastroenteritis | [facility] | + + + + | 2019-09-09 00:00 | Nausea, vomiting, and | [facility] | | | diarrhea | | + + + + | 2019-09-09 00:00 | Nausea, vomiting, and | [facility] | | | diarrhea | | + + + + | 2019-09-09 00:00 | Nausea, vomiting, and | [facility] [place] | | | diarrhea | | + + + + | 2019-11-07 00:00 | Acute kidney injury | [facility] [place] | + + + + | 2019-11-07 00:00 | Acute kidney injury | [facility] [place] | + + + + | 2019-11-07 00:00 | Acute kidney injury | [facility] [place] | + + + + | 2020-05-18 00:00 | Cellulitis of left lower | [facility] [place] | | | extremity | | + + + + | 2020-05-18 00:00 | Cellulitis of left lower | [facility] [place] | | | extremity | | + + + + | 2020-05-18 00:00 | Cellulitis of left lower | [facility] [place] | | | extremity | | + + + + | 2020-05-18 00:00 | Fracture of fifth | [facility] [place] | | | metatarsal bone | | + + + + | 2020-05-18 00:00 | Fracture of fifth | [facility] [place] | | | metatarsal bone | | + + + + | 2020-05-18 00:00 | Fracture of fifth | [facility] [place] | | | metatarsal bone | | + + + + | 2020-07-08 00:00 | Closed fracture of left | [facility] [place] | | | ankle | | + + + + | 2020-07-08 00:00 | Closed fracture of left | [facility] [place] | | | ankle | | + + + + | 2020-07-08 00:00 | Closed fracture of left | [facility] [place] | | | ankle | | + + + + | 2020-07-09 00:00 | Trimalleolar fracture of | [facility] [place] | | | left ankle | | + + + + | 2020-07-09 00:00 | Trimalleolar fracture of | [facility] [place] | | | left ankle | | + + + + | 2020-07-09 00:00 | Trimalleolar fracture of | [facility] | | | left ankle | | + + + + | 2020-07-10 00:00 | Hyperkalemia | [facility] | + + + + | 2020-07-10 00:00 | Hyperkalemia | [facility] | + + + + | 2020-07-10 00:00 | Hyperkalemia | [facility] | + + + + | 2020-07-10 00:00 | Weakness | [facility] | + + + + | 2020-07-10 00:00 | Weakness | [facility] | + + + + | 2020-07-10 00:00 | Weakness | 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 | | | congestive heart failure | | + + + + | 2020-10-03 00:00 | Acute on chronic | [facility] | | | congestive heart failure | | + + + + | 2020-10-03 00:00 | Acute on chronic | [facility] | | | congestive heart failure | | + + + + | 2020-11-09 00:00 | Diabetes mellitus | [facility] | + + + + | 2020-11-09 00:00 | Diabetes mellitus | [facility] | + + + + | 2020-11-09 00:00 | Diabetes mellitus | [facility] | + + + + | 2020-11-09 00:00 | Cellulitis of left foot | [facility] | + + + + | 2020-11-09 00:00 | Cellulitis of left foot | [facility] | + + + + | 2020-11-09 00:00 | Cellulitis of left foot | [facility] | + + + + | 2020-11-09 00:00 | Chronic renal impairment | [facility] | + + + + | 2020-11-09 00:00 | Chronic renal impairment | [facility] | + + + + | 2020-11-09 00:00 | Chronic renal impairment | [facility] | + + + + | 2020-11-17 [...] + | 2021-01-31 00:00 | Dyspnea | [facility] | + + + + | 2021-01-31 00:00 | Dyspnea | [facility] | + + + + | 2021-01-31 00:00 | Dyspnea | [facility] | + + + + | 2021-02-20 00:00 | Pulmonary thromboembolism | [facility] | + + + + | 2021-02-20 00:00 | Pulmonary thromboembolism | [facility] | + + + + | 2021-02-20 00:00 | Pulmonary thromboembolism | [facility] | + + + + | 2021-02-21 00:00 | Pleural effusion | [facility] | + + + + | 2021-02-21 00:00 | Pleural effusion | [facility] | + + + + | 2021-02-21 00:00 | Pleural effusion | [facility] | + + + + | 2021-02-21 00:00 | Chest pain | [facility] | + + + + | 2021-02-21 00:00 | Chest pain | [facility] | + + + + | 2021-02-21 00:00 | Chest pain | [facility] | + + + + | 2021-12-04 00:00 | Hypokalemia | [facility] | + + + + | 2021-12-04 00:00 | Hypokalemia | [facility] | + + + + | 2021-12-04 00:00 | Hypokalemia | [facility] | + + + + | 2021-12-04 00:00 | Gastroesophageal reflux | [facility] | | | disease | | + + + + | 2021-12-04 00:00 | Gastroesophageal reflux | [facility] | | | disease | | + + + + | 2021-12-04 00:00 | Gastroesophageal reflux | [facility] | | | disease | | + + + + | 2021-12-04 00:00 | Cellulitis and abscess of | [facility] | | | lower extremity | | + + + + | 2021-12-04 00:00 | Cellulitis and abscess of | [facility] | | | lower extremity | | + + + + | 2021-12-04 00:00 | Cellulitis and abscess of | [facility] | | | lower extremity | | + + + + | 2022-02-07 00:00 | Cellulitis of right lower | [facility] | | | leg | | + + + + | 2022-02-07 00:00 | Cellulitis of right lower | [facility] | | | leg | | + + + + | 2022-02-07 00:00 | Cellulitis of right lower | [facility] | | | leg | | + + + + | 2022-04-02 00:00 | Gastroparesis | [facility] | + + + + | 2022-04-02 00:00 | Gastroparesis | [facility] | + + + + | 2022-04-02 17:17 | TYPE 2 DIABETES MELLITUS | [facility] | | | WITH DIABETIC NEUROPATHY, | | + + + + | 2022-04-02 17:17 | TYPE 2 DIABETES W DIABETIC | [facility] | | | AUTONOMIC (POLY)NEUROPA | | + + + + | 2022-04-02 17:17 | 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 | [facility] | | | FAIL AND STG 1-4/UNSP | | + + + + | 2022-04-02 17:17 | HEART FAILURE, UNSPECIFIED | [facility] | | | | | + + + + | 2022-04-02 17:17 | CHRONIC OBSTRUCTIVE | [facility] | | | PULMONARY DISEASE, | | | | UNSPECIFIED | | + + + + | 2022-04-02 17:17 | GASTROPARESIS | [facility] | + + + + | 2022-04-02 17:17 | NAUSEA WITH VOMITING, | [facility] | | | UNSPECIFIED | | + + + + | 2022-04-02 17:17 | STONE PRODUCT FABRICATOR (CURRENT) USE OF | [facility] | | | INSULIN | | + + + + | 2022-04-02 17:17 | OTHER STONE PRODUCT FABRICATOR (CURRENT) | [facility] | | | DRUG THERAPY | | + + + + | 2022-04-02 17:17 | PERSONAL HISTORY OF | [facility] | | | NICOTINE DEPENDENCE | | + + + + | 2022-04-02 17:17 | ALLERGY STATUS TO | [facility] | | | PENICILLIN | | + + + + | 2022-04-02 17:17 | ALLERGY STATUS TO OTHER | [facility] | | | ANTIBIOTIC AGENTS STATUS | | + + + + | 2022-04-02 17:17 | ALLERGY STATUS TO | [facility] | | | SULFONAMIDES STATUS | | + + + + | 2022-04-02 17:17 | ALLERGY STATUS TO NARCOTIC | [facility] | | | AGENT STATUS | | + + + + | 2022-04-02 17:17 | ALLERGY STATUS TO OTH | [facility] | | | DRUG/MEDS/BIOL SUBST STATUS | | | | | | + + + + | 2022-04-30 00:00 | Diabetic gastroparesis | [facility] | | | associated with type 2 | | | | diabetes mellitus | | + + + + | 2022-04-30 00:00 | Cannabis use disorder | [facility] | + + + + | 2022-04-30 00:00 | Chronic bronchitis | [facility] | + + + + | 2022-04-30 18:23 | TYPE 2 DIABETES MELLITUS W | [facility] | | | DIABETIC CHRONIC KIDNEY | | + + + + | 2022-04-30 18:23 | TYPE 2 DIABETES MELLITUS | [facility] | | | WITH DIABETIC NEUROPATHY, | | + + + + | 2022-04-30 18:23 | TYPE 2 DIABETES W DIABETIC | [facility] | | | AUTONOMIC (POLY)NEUROPA | | + + + + | 2022-04-30 18:23 | HYPOKALEMIA | [facility] | + + + + | 2022-04-30 18:23 | CANNABIS USE, UNSPECIFIED, | [facility] | | | UNCOMPLICATED | | + + + + | 2022-04-30 18:23 | 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 | [facility] | | | FAIL AND STG 1-4/UNSP | | + + + + | 2022-04-30 18:23 | HEART FAILURE, UNSPECIFIED | [facility] | | | | | + + + + | 2022-04-30 18:23 | Unspecified chronic | [facility] | | | bronchitis | | + + + + | 2022-04-30 18:23 | GASTROPARESIS | [facility] | + + + + | 2022-04-30 18:23 | NAUSEA WITH VOMITING, | [facility] | | | UNSPECIFIED | | + + + + | 2022-04-30 18:23 | SHELTER (CURRENT) USE OF | [facility] | | | INSULIN | | + + + + | 2022-04-30 18:23 | OTHER SHELTER (CURRENT) | [facility] | | | DRUG THERAPY | | + + + + | 2022-04-30 18:23 | PERSONAL HISTORY OF | [facility] | | | NICOTINE DEPENDENCE | | + + + + | 2022-04-30 18:23 | ALLERGY STATUS TO | [facility] | | | PENICILLIN | | + + + + | 2022-04-30 18:23 | ALLERGY STATUS TO OTHER | [facility] | | | ANTIBIOTIC AGENTS STATUS | | + + + + | 2022-04-30 18:23 | ALLERGY STATUS TO | [facility] | | | SULFONAMIDES STATUS | | + + + + | 2022-04-30 18:23 | ALLERGY STATUS TO NARCOTIC | [facility] | | | AGENT STATUS | | + + + + | 2022-04-30 18:23 | ALLERGY STATUS TO OTH | [facility] | | | DRUG/MEDS/BIOL SUBST STATUS | | | | | | + + + + | 2022-08-08 20:37 | TYPE 2 DIABETES MELLITUS W | [facility] | | | DIABETIC CHRONIC KIDNEY | | + + + + | 2022-08-08 20:37 | TYPE 2 DIABETES W DIABETIC | [facility] | | | AUTONOMIC (POLY)NEUROPA | | + + + + | 2022-08-08 20:37 | HYPERLIPIDEMIA, | [facility] | | | UNSPECIFIED | | + + + + | 2022-08-08 20:37 | 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 | [facility] | | | FAIL AND STG 1-4/UNSP | | + + + + | 2022-08-08 20:37 | HEART FAILURE, UNSPECIFIED | [facility] | | | | | + + + + | 2022-08-08 20:37 | GASTROPARESIS | [facility] | + + + + | 2022-08-08 20:37 | URINARY TRACT INFECTION, | [facility] | | | SITE NOT SPECIFIED | | + + + + | 2022-08-08 20:37 | NAUSEA WITH VOMITING, | [facility] | | | UNSPECIFIED | | + + + + | 2022-08-08 20:37 | SHELTER (CURRENT) USE OF | [facility] | | | INSULIN | | + + + + | 2022-08-08 20:37 | OTHER SHELTER (CURRENT) | [facility] | | | DRUG THERAPY | | + + + + | 2022-08-08 20:37 | PERSONAL HISTORY OF | [facility] | | | NICOTINE DEPENDENCE | | + + + + | 2022-08-08 20:37 | ALLERGY STATUS TO | [facility] | | | PENICILLIN | | + + + + | 2022-08-08 20:37 | ALLERGY STATUS TO OTHER | [facility] | | | ANTIBIOTIC AGENTS STATUS | | + + + + | 2022-08-08 20:37 | ALLERGY STATUS TO | [facility] | | | SULFONAMIDES STATUS | | + + + + | 2022-08-08 20:37 | ALLERGY STATUS TO NARCOTIC | [facility] | | | AGENT STATUS | | + + + + | 2022-08-09 00:00 | Urinary tract infection | [facility] | + + + + Procedures No [...] (missing) | | (unavailable | 15:53:08 | [facility] | | | | | ) | [...] (missing) | | (unavailable | 19:11:08 | [facility] | | | | | ) | [...] (missing) | | (unavailable | 21:12:07 | [facility] | | | | | [...] (missing) | (missing) | | (unavailable | :: | [facility] ) | | [facility] | | | | + + + +-----+ + + + + | Result panel [id number] | + + + + + +------+ + + | | 2022-08-08 | [facility] | [facility] | (missing) | (missing) | | (unavailable | :: | [facility] | | | | | [...] (missing) | (missing) | | (unavailable | :22:07 | [facility] | | | | | [...] (missing) | | (unavailable | 21:22:07 | [facility] | | | | | ) | [...]
--- OUTSIDE RECORDS SUMMARY | ~2022-10-19 | XMS | Continuity of Care Document ---
Demographics + + + | Address | [address] | | | [place] [address] | + + + | Preferred Language | Unknown | + + + | Marital Status | | + + + | Yazidi Affiliation | Unknown | + + + | Race | White | + + + | Ethnic Group | Not or | + + + Author + + + | Author | [facility] | + + + | Organization | [facility] | + + + | Address | [address] | | | [place] [address] | + + + | Phone | | + + + Care Team Providers + + + + | Care Clinical Data Coordinator Name | Role | Phone | + [...] 2020-05-18 00:00 | Tdap | [facility] | + + + + | 2020-05-18 00:00 | Tdap | [facility] | + + + + | 2020-05-18 00:00 | Tdap | [facility] | + + + + | 2021-12-04 00:00 | Influenza, Injectable, | [facility] | | | Quadrivalent, Preservative | | + + + + | 2022-02-14 00:00 | Influenza, Injectable, | [facility] | | | Quadrivalent, Preservative | | + + + + | 2022-04-06 00:00 | Influenza, Injectable, | [facility] | | | Quadrivalent, Preservative | | + + + + | 2022-04-30 00:00 | Influenza, Injectable, | [facility] | | | Quadrivalent, Preservative | | + + + + | 2022-08-09 00:00 | Influenza, Injectable, | [facility] | | | Quadrivalent, Preservative | | + + + + Medications + + + + | date | description | facility | + + + + | 2021-12-04 00:00 | FAMOTIDINE | [facility] | + + + + | 2022-08-09 00:00 | ONDANSETRON | [facility] | + + + + | 2019-07-17 00:00 | ONDANSETRON HCL | [facility] | + + + + | 2019-07-17 00:00 | ONDANSETRON HCL | [facility] | + + + + | 2019-07-17 00:00 | ONDANSETRON HCL | [facility] | + + + + | 2021-12-04 00:00 | LAMOTRIGINE | [facility] | + + + + | 2022-02-14 00:00 | LAMOTRIGINE | [facility] | + + + + | 2022-04-06 00:00 | LAMOTRIGINE | [facility] | + + + + | 2022-04-30 00:00 | LAMOTRIGINE | [facility] | + + + + | 2022-08-09 00:00 | LAMOTRIGINE | [facility] | + + + + | 2021-12-04 00:00 | ALPRAZOLAM | [facility] | + + + + | 2022-02-14 00:00 | ALPRAZOLAM | [facility] | + + + + | 2022-04-06 00:00 | ALPRAZOLAM | [facility] | + + + + | 2022-04-30 00:00 | ALPRAZOLAM | [facility] | + + + + | 2022-08-09 00:00 | ALPRAZOLAM | [facility] | + + + + | 2022-04-30 00:00 | POTASSIUM CHLORIDE | [facility] | + + + + | 2021-12-04 00:00 | EMPAGLIFLOZIN | [facility] | + + + + | 2022-02-14 00:00 | EMPAGLIFLOZIN | [facility] | + + + + | 2022-04-06 00:00 | EMPAGLIFLOZIN | [facility] | + + + + | 2022-04-30 00:00 | EMPAGLIFLOZIN | [facility] | + + + + | 2022-08-09 00:00 | EMPAGLIFLOZIN | [facility] | + + + + | 2021-12-04 00:00 | DOXYCYCLINE HYCLATE | [facility] | + + + + | 2022-02-14 00:00 | DOXYCYCLINE HYCLATE | [facility] | + + + + | 2022-04-06 00:00 | DOXYCYCLINE HYCLATE | [facility] | + + + + | 2022-04-30 00:00 | DOXYCYCLINE HYCLATE | [facility] | + + + + | 2022-08-09 00:00 | DOXYCYCLINE HYCLATE | [facility] | + + + + | 2021-12-04 00:00 | Insulin Aspart | [facility] | + + + + | 2022-02-14 00:00 | Insulin Aspart | [facility] | + + + + | 2022-04-06 00:00 | Insulin Aspart | [facility] | + + + + | 2022-04-30 00:00 | Insulin Aspart | [facility] | + + + + | 2022-08-09 00:00 | Insulin Aspart | [facility] | + + + + | 2021-12-04 00:00 | Insulin | [facility] | | | Hum. Markrecsaravanan | | + + + + | 2022-02-14 00:00 | Insulin | [facility] | | | Hum. MarkrecGeoffannegro | | + + + + | 2022-04-06 00:00 | Insulin | [facility] | | | MarkHumGeoffrecGeoffanlog | | + + + + | 2022-04-30 00:00 | Insulin | [facility] | | | Gl[facility],[facility].rec.anlog | | + + + + | 2022-08-09 00:00 | Insulin | [facility] | | | [facility] | | + + + + | 2021-12-04 00:00 | LISINOPRIL | [facility] | + + + + | 2022-02-14 00:00 | LISINOPRIL | [facility] | + + + + | 2022-04-06 00:00 | LISINOPRIL | [facility] | + + + + | 2022-04-30 00:00 | LISINOPRIL | [facility] | + + + + | 2022-08-09 00:00 | LISINOPRIL | [facility] | + + + + | 2021-12-04 00:00 | METOLAZONE | [facility] | + + + + | 2022-02-14 00:00 | METOLAZONE | [facility] | + + + + | 2022-04-06 00:00 | METOLAZONE | [facility] | + + + + | 2022-04-30 00:00 | METOLAZONE | [facility] | + + + + | 2022-08-09 00:00 | METOLAZONE | [facility] | + + + + | 2021-12-04 00:00 | POTASSIUM CHLORIDE | [facility] | + + + + | 2021-12-04 00:00 | TORSEMIDE | [facility] | + + + + | 2022-02-14 00:00 | TORSEMIDE | [facility] | + + + + | 2022-04-06 00:00 | TORSEMIDE | [facility] | + + + + | 2022-04-30 00:00 | TORSEMIDE | [facility] | + + + + | 2022-08-09 00:00 | TORSEMIDE | [facility] | + + + + | 2022-02-14 00:00 | MELATONIN | [facility] | + + + + | 2021-12-04 00:00 | CARVEDILOL | [facility] | + + + + | 2022-02-14 00:00 | CARVEDILOL | [facility] | + + + + | 2022-04-06 00:00 | CARVEDILOL | [facility] | + + + + | 2022-04-30 00:00 | CARVEDILOL | [facility] | + + + + | 2022-08-09 00:00 | CARVEDILOL | [facility] | + + + + | 2021-12-04 00:00 | OMEPRAZOLE | [facility] | + + + + | 2022-02-14 00:00 | OMEPRAZOLE | [facility] | + + + + | 2022-04-06 00:00 | OMEPRAZOLE | [facility] | + + + + | 2022-04-30 00:00 | OMEPRAZOLE | [facility] | + + + + | 2022-08-09 00:00 | OMEPRAZOLE | [facility] | + + + + | 2022-04-02 00:00 | METOCLOPRAMIDE HCL | [facility] | + + + + | 2022-04-02 00:00 | METOCLOPRAMIDE HCL | [facility] | + + + + | 2022-08-09 00:00 | METOCLOPRAMIDE HCL | [facility] | + + + + | 2017-12-24 00:00 | CEPHALEXIN | [facility] | + + + + | 2017-12-24 00:00 | CEPHALEXIN | [facility] | + + + + | 2017-12-24 00:00 | CEPHALEXIN | [facility] | + + + + | 2021-12-04 00:00 | FLUOXETINE HCL | [facility] | + + + + | 2022-02-14 00:00 | FLUOXETINE HCL | [facility] | + + + + | 2022-04-06 00:00 | FLUOXETINE HCL | [facility] | + + + + | 2022-04-30 00:00 | FLUOXETINE HCL | [facility] | + + + + | 2022-08-09 00:00 | FLUOXETINE HCL | [facility] | + + + + | 2021-12-04 00:00 | Torsemide | [facility] | + + + + | 2022-02-14 00:00 | Torsemide | [facility] | + + + + | 2022-04-06 00:00 | Torsemide | [facility] | + + + + | 2022-04-30 00:00 | Torsemide | [facility] | + + + + | 2022-08-09 00:00 | Torsemide | [facility] | + + + + | 2022-04-30 00:00 | BENZONATATE | [facility] | + + + + | 2021-12-04 00:00 | PANTOPRAZOLE SODIUM | [facility] | + + + + | 2022-02-14 00:00 | PANTOPRAZOLE SODIUM | [facility] | + + + + | 2022-04-06 00:00 | PANTOPRAZOLE SODIUM | [facility] | + + + + | 2022-04-30 00:00 | PANTOPRAZOLE SODIUM | [facility] | + + + + | 2022-08-09 00:00 | PANTOPRAZOLE SODIUM | [facility] | + + + + | 2021-12-04 00:00 | INSULIN GLARGINE | [facility] | + + + + | 2022-02-14 00:00 | INSULIN GLARGINE | [facility] | + + + + | 2022-04-06 00:00 | INSULIN GLARGINE | [facility] | + + + + | 2022-04-30 00:00 | INSULIN GLARGINE | [facility] | + + + + | 2022-08-09 00:00 | INSULIN GLARGINE | [facility] | + + + + | 2022-08-09 00:00 | CEPHALEXIN | [facility] | + + + + | 2021-12-04 00:00 | CLOPIDOGREL BISULFATE | [facility] | + + + + | 2022-02-14 00:00 | CLOPIDOGREL BISULFATE | [facility] | + + + + | 2022-04-06 00:00 | CLOPIDOGREL BISULFATE | [facility] | + + + + | 2022-04-30 00:00 | CLOPIDOGREL BISULFATE | [facility] | + + + + | 2022-08-09 00:00 | CLOPIDOGREL BISULFATE | [facility] | + + + + | 2021-12-04 00:00 | FAMOTIDINE | [facility] | + + + + | 2022-02-14 00:00 | FAMOTIDINE | [facility] | + + + + | 2022-04-06 00:00 | FAMOTIDINE | [facility] | + + + + | 2022-04-30 00:00 | FAMOTIDINE | [facility] | + + + + | 2022-08-09 00:00 | FAMOTIDINE | [facility] | + + + + | 2021-12-04 00:00 | GABAPENTIN | [facility] | + + + + | 2022-02-14 00:00 | GABAPENTIN | [facility] | + + + + | 2022-04-06 00:00 | GABAPENTIN | [facility] | + + + + | 2022-04-30 00:00 | GABAPENTIN | [facility] | + + + + | 2022-08-09 00:00 | GABAPENTIN | [facility] | + + + + | 2021-12-04 00:00 | GABAPENTIN | [facility] | + + + + | 2022-02-14 00:00 | GABAPENTIN | [facility] | + + + + | 2022-04-06 00:00 | GABAPENTIN | [facility] | + + + + | 2022-04-30 00:00 | GABAPENTIN | [facility] | + + + + | 2022-08-09 00:00 | GABAPENTIN | [facility] | + + + + | 2021-12-04 00:00 | METOCLOPRAMIDE HCL | [facility] | + + + + | 2022-02-14 00:00 | METOCLOPRAMIDE HCL | [facility] | + + + + | 2022-04-06 00:00 | METOCLOPRAMIDE HCL | [facility] | + + + + | 2022-04-30 00:00 | METOCLOPRAMIDE HCL | [facility] | + + + + | 2022-08-09 00:00 | METOCLOPRAMIDE HCL | [facility] | + + + + | 2019-05-29 00:00 | ONDANSETRON | [facility] | + + + + | 2019-05-29 00:00 | ONDANSETRON | [facility] | + + + + | 2019-05-29 00:00 | ONDANSETRON | [facility] | + + + + | 2022-04-02 00:00 | ONDANSETRON | [facility] | + + + + | 2022-04-02 00:00 | ONDANSETRON | [facility] | + + + + | 2022-04-30 00:00 | ONDANSETRON | [facility] | + + + + | 2019-05-12 00:00 | predniSONE | [facility] | + + + + | 2019-05-12 00:00 | predniSONE | [facility] | + + + + | 2019-05-12 00:00 | predniSONE | [facility] | + + + + | 2021-12-04 00:00 | FUROSEMIDE | [facility] | + + + + | 2022-02-14 00:00 | FUROSEMIDE | [facility] | + + + + | 2022-04-06 00:00 | FUROSEMIDE | [facility] | + + + + | 2022-04-30 00:00 | FUROSEMIDE | [facility] | + + + + | 2022-08-09 00:00 | FUROSEMIDE | [facility] | + + + + | 2021-12-04 00:00 | LISINOPRIL | [facility] | + + + + | 2022-02-14 00:00 | LISINOPRIL | [facility] | + + + + | 2022-04-06 00:00 | LISINOPRIL | [facility] | + + + + | 2022-04-30 00:00 | LISINOPRIL | [facility] | + + + + | 2022-08-09 00:00 | LISINOPRIL | [facility] | + + + + | 2021-12-04 00:00 | PIOGLITAZONE HCL | [facility] | + + + + | 2022-02-14 00:00 | PIOGLITAZONE HCL | [facility] | + + + + | 2022-04-06 00:00 | PIOGLITAZONE HCL | [facility] | + + + + | 2022-04-30 00:00 | PIOGLITAZONE HCL | [facility] | + + + + | 2022-08-09 00:00 | PIOGLITAZONE HCL | [facility] | + + + + | 2021-12-04 00:00 | Insulin Aspart | [facility] | + + + + | 2022-02-14 00:00 | Insulin Aspart | [facility] | + + + + | 2022-04-06 00:00 | Insulin Aspart | [facility] | + + + + | 2022-04-30 00:00 | Insulin Aspart | [facility] | + + + + | 2022-08-09 00:00 | Insulin Aspart | [facility] | + + + + | 2021-12-04 00:00 | TIZANIDINE HCL | [facility] | + + + + | 2022-02-14 00:00 | TIZANIDINE HCL | [facility] | + + + + | 2022-04-06 00:00 | TIZANIDINE HCL | [facility] | + + + + | 2022-04-30 00:00 | TIZANIDINE HCL | [facility] | + + + + | 2022-08-09 00:00 | TIZANIDINE HCL | [facility] | + + + + | 2021-12-04 00:00 | DULOXETINE HCL | [facility] | + + + + | 2022-02-14 00:00 | DULOXETINE HCL | [facility] | + + + + | 2022-04-06 00:00 | DULOXETINE HCL | [facility] | + + + + | 2022-04-30 00:00 | DULOXETINE HCL | [facility] | + + + + | 2022-08-09 00:00 | DULOXETINE HCL | [facility] | + + + + | 2021-12-04 00:00 | ARIPIPRAZOLE | [facility] | + + + + | 2022-02-14 00:00 | ARIPIPRAZOLE | [facility] | + + + + | 2022-04-06 00:00 | ARIPIPRAZOLE | [facility] | + + + + | 2022-04-30 00:00 | ARIPIPRAZOLE | [facility] | + + + + | 2022-08-09 00:00 | ARIPIPRAZOLE | [facility] | + + + + | 2021-12-04 00:00 | DULOXETINE HCL | [facility] | + + + + | 2022-02-14 00:00 | DULOXETINE HCL | [facility] | + + + + | 2022-04-06 00:00 | DULOXETINE HCL | [facility] | + + + + | 2022-04-30 00:00 | DULOXETINE HCL | [facility] | + + + + | 2022-08-09 00:00 | DULOXETINE HCL | [facility] | + + + + | 2021-12-04 00:00 | AMOXICILLIN/POTASSIUM CLAV | [facility] | | | | | + + + + | 2022-02-14 00:00 | AMOXICILLIN/POTASSIUM CLAV | [facility] | | | | | + + + + | 2022-04-06 00:00 | AMOXICILLIN/POTASSIUM CLAV | [facility] | | | | | + + + + | 2022-04-30 00:00 | AMOXICILLIN/POTASSIUM CLAV | [facility] | | | | | + + + + | 2022-08-09 00:00 | AMOXICILLIN/POTASSIUM CLAV | [facility] | | | | | + + + + | 2022-02-14 00:00 | Diclofenac Sodium | [facility] | + + + + | 2022-04-06 00:00 | Diclofenac Sodium | [facility] | + + + + | 2022-04-30 00:00 | Diclofenac Sodium | [facility] | + + + + | 2022-08-09 00:00 | Diclofenac Sodium | [facility] | + + + + | 2020-07-08 00:00 | HYDROCODONE | [facility] | | | BIT/ACETAMINOPHEN | | + + + + | 2020-07-08 00:00 | HYDROCODONE | [facility] | | | BIT/ACETAMINOPHEN | | + + + + | 2020-07-08 00:00 | HYDROCODONE | [facility] | | | BIT/ACETAMINOPHEN | | + + + + | 2021-12-04 00:00 | ALBUTEROL SULFATE | [facility] | + + + + | 2022-02-14 00:00 | ALBUTEROL SULFATE | [facility] | + + + + | 2022-04-06 00:00 | ALBUTEROL SULFATE | [facility] | + + + + | 2022-04-30 00:00 | ALBUTEROL SULFATE | [facility] | + + + + | 2022-08-09 00:00 | ALBUTEROL SULFATE | [facility] | + + + + | 2021-12-04 00:00 | Rosuvastatin Calcium | [facility] | + + + + | 2022-02-14 00:00 | Rosuvastatin Calcium | [facility] | + + + + | 2022-04-06 00:00 | Rosuvastatin Calcium | [facility] | + + + + | 2022-04-30 00:00 | Rosuvastatin Calcium | [facility] | + + + + | 2022-08-09 00:00 | Rosuvastatin Calcium | [facility] | + + + + | 2021-12-04 00:00 | ROSUVASTATIN CALCIUM | [facility] | + + + + | 2022-02-14 00:00 | ROSUVASTATIN CALCIUM | [facility] | + + + + | 2022-04-06 00:00 | ROSUVASTATIN CALCIUM | [facility] | + + + + | 2022-04-30 00:00 | ROSUVASTATIN CALCIUM | [facility] | + + + + | 2022-08-09 00:00 | ROSUVASTATIN CALCIUM | [facility] | + + + + | 2021-12-04 00:00 | METFORMIN HCL | [facility] | + + + + | 2022-02-14 00:00 | METFORMIN HCL | [facility] | + + + + | 2022-04-06 00:00 | METFORMIN HCL | [facility] | + + + + | 2022-04-30 00:00 | METFORMIN HCL | [facility] | + + + + | 2022-08-09 00:00 | METFORMIN HCL | [facility] | + + + + | 2021-12-04 00:00 | FLUTICASONE PROPIONATE 220 | [facility] | | | MCG | | + + + + | 2022-02-14 00:00 | FLUTICASONE PROPIONATE 220 | [facility] | | | MCG | | + + + + | 2022-04-06 00:00 | FLUTICASONE PROPIONATE 220 | [facility] | | | MCG | | + + + + | 2022-04-30 00:00 | FLUTICASONE PROPIONATE 220 | [facility] | | | MCG | | + + + + | 2022-08-09 00:00 | FLUTICASONE PROPIONATE 220 | [facility] | | | MCG | | + + + + | 2019-05-29 00:00 | PROMETHAZINE HCL | [facility] | + + + + | 2019-05-29 00:00 | PROMETHAZINE HCL | [facility] | + + + + | 2019-05-29 00:00 | PROMETHAZINE HCL | [facility] | + + + + | 2019-07-17 00:00 | PROMETHAZINE HCL | [facility] | + + + + | 2019-07-17 00:00 | PROMETHAZINE HCL | [facility] | + + + + 2019-07-17 00:00 | PROMETHAZINE HCL | [facility] | + + + + Problems + + + + | date | description | facility | + + + + | 2017-12-24 00:00 | Acute bronchitis | [facility] | + + + + | 2017-12-24 00:00 | Acute bronchitis | [facility] | + + + + | 2017-12-24 00:00 | Acute bronchitis | [facility] | + + + + | 2017-12-24 00:00 | Ulcer of left foot | [facility] | + + + + | 2017-12-24 00:00 | Ulcer of left foot | [facility] | + + + + | 2017-12-24 00:00 | Ulcer of left foot | [facility] | + + + + | 2018-06-02 00:00 | Diverticulitis | [facility] | + + + + | 2018-06-02 00:00 | Diverticulitis | [facility] | + + + + | 2018-06-02 00:00 | Diverticulitis | [facility] | + + + + | 2018-06-02 00:00 | Nausea | [facility] | + + + + | 2018-06-02 00:00 | Nausea | [facility] | + + + + | 2018-06-02 00:00 | Nausea | [facility] | + + + + | 2018-06-02 00:00 | Vomiting | [facility] | + + + + | 2018-06-02 00:00 | Vomiting | [facility] | + + + + | 2018-06-02 00:00 | Vomiting | [facility] | + + + + | 2018-10-18 00:00 | Dehydration | [facility] | + + + + | 2018-10-18 00:00 | Dehydration | [facility] | + + + + | 2018-10-18 00:00 | Dehydration | [facility] | + + + + | 2019-05-12 00:00 | Congestive heart failure | [facility] | + + + + | 2019-05-12 00:00 | Congestive heart failure | [facility] | + + + + | 2019-05-12 00:00 | Congestive heart failure | [facility] | + + + + | 2019-05-12 00:00 | Acute bronchitis with | [facility] | | | chronic obstructive | | | | pulmonary disease (COPD) | | + + + + | 2019-05-12 00:00 | Acute bronchitis with | [facility] | | | chronic obstructive | | | | pulmonary disease (COPD) | | + + + + | 2019-05-12 00:00 | Acute bronchitis with | [facility] | | | chronic obstructive | | | | pulmonary disease (COPD) | | + + + + | 2019-05-29 00:00 | Acute gastroenteritis | [facility] | + + + + | 2019-05-29 00:00 | Acute gastroenteritis | [facility] | + + + + | 2019-05-29 00:00 | Acute gastroenteritis | [facility] | + + + + | 2019-09-08 00:00 | Gastroenteritis | [facility] | + + + + | 2019-09-08 00:00 | Gastroenteritis | [facility] | + + + + | 2019-09-08 00:00 | Gastroenteritis | [facility] | + + + + | 2019-09-09 00:00 | Nausea, vomiting, and | [facility] | | | diarrhea | | + + + + | 2019-09-09 00:00 | Nausea, vomiting, and | [facility] | | | diarrhea | | + + + + | 2019-09-09 00:00 | Nausea, vomiting, and | [facility] | | | diarrhea | | + + + + | 2019-11-07 00:00 | Acute kidney injury | [facility] | + + + + | 2019-11-07 00:00 | Acute kidney injury | [facility] | + + + + | 2019-11-07 00:00 | Acute kidney injury | [facility] | + + + + | 2020-05-18 00:00 | Cellulitis of left lower | [facility] | | | extremity | | + + + + | 2020-05-18 00:00 | Cellulitis of left lower | [facility] | | | extremity | | + + + + | 2020-05-18 00:00 | Cellulitis of left lower | [facility] | | | extremity | | + + + + | 2020-05-18 00:00 | Fracture of fifth | [facility] | | | metatarsal bone | | + + + + | 2020-05-18 00:00 | Fracture of fifth | [facility] | | | metatarsal bone | | + + + + | 2020-05-18 00:00 | Fracture of fifth | [facility] | | | metatarsal bone | | + + + + | 2020-07-08 00:00 | Closed fracture of left | [facility] | | | ankle | | + + + + | 2020-07-08 00:00 | Closed fracture of left | [facility] | | | ankle | | + + + + | 2020-07-08 00:00 | Closed fracture of left | [facility] | | | ankle | | + + + + | 2020-07-09 00:00 | Trimalleolar fracture of | [facility] | | | left ankle | | + + + + | 2020-07-09 00:00 | Trimalleolar fracture of | [facility] | | | left ankle | | + + + + | 2020-07-09 00:00 | Trimalleolar fracture of | [facility] | | | left ankle | | + + + + | 2020-07-10 00:00 | Hyperkalemia | [facility] | + + + + | 2020-07-10 00:00 | Hyperkalemia | [facility] | + + + + | 2020-07-10 00:00 | Hyperkalemia | [facility] | + + + + | 2020-07-10 00:00 | Weakness | [facility] | + + + + | 2020-07-10 00:00 | Weakness | [facility] | + + + + | 2020-07-10 00:00 | Weakness | [facility] | + + + + | 2020-07-12 [...] + + + | 2020-07-12 19:11 | 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 | [employer] | + + + + | 2020-10-03 00:00 | Acute on chronic | [facility] | | | congestive heart failure | | + + + + | 2020-10-03 00:00 | Acute on chronic | [facility] | | | congestive heart failure | | + + + + | 2020-10-03 00:00 | Acute on chronic | [facility] | | | congestive heart failure | | + + + + | 2020-11-09 00:00 | Diabetes mellitus | [facility] | + + + + | 2020-11-09 00:00 | Diabetes mellitus | [facility] | + + + + | 2020-11-09 00:00 | Diabetes mellitus | [facility] | + + + + | 2020-11-09 00:00 | Cellulitis of left foot | [facility] | + + + + | 2020-11-09 00:00 | Cellulitis of left foot | [facility] | + + + + | 2020-11-09 00:00 | Cellulitis of left foot | [facility] | + + + + | 2020-11-09 00:00 | Chronic renal impairment | [facility] | + + + + | 2020-11-09 00:00 | Chronic renal impairment | [facility] | + + + + | 2020-11-09 00:00 | Chronic renal impairment | [facility] | + + + + | 2020-11-17 [...] + | 2021-01-31 00:00 | Dyspnea | [facility] | + + + + | 2021-01-31 00:00 | Dyspnea | [facility] | + + + + | 2021-01-31 00:00 | Dyspnea | [facility] | + + + + | 2021-02-20 00:00 | Pulmonary thromboembolism | [facility] | + + + + | 2021-02-20 00:00 | Pulmonary thromboembolism | [facility] | + + + + | 2021-02-20 00:00 | Pulmonary thromboembolism | [facility] | + + + + | 2021-02-21 00:00 | Pleural effusion | [facility] | + + + + | 2021-02-21 00:00 | Pleural effusion | [facility] | + + + + | 2021-02-21 00:00 | Pleural effusion | [facility] | + + + + | 2021-02-21 00:00 | Chest pain | [facility] | + + + + | 2021-02-21 00:00 | Chest pain | [facility] | + + + + | 2021-02-21 00:00 | Chest pain | [facility] | + + + + | 2021-12-04 00:00 | Hypokalemia | [facility] | + + + + | 2021-12-04 00:00 | Hypokalemia | [facility] | + + + + | 2021-12-04 00:00 | Hypokalemia | [facility] | + + + + | 2021-12-04 00:00 | Gastroesophageal reflux | [facility] | | | disease | | + + + + | 2021-12-04 00:00 | Gastroesophageal reflux | [facility] | | | disease | | + + + + | 2021-12-04 00:00 | Gastroesophageal reflux | [facility] | | | disease | | + + + + | 2021-12-04 00:00 | Cellulitis and abscess of | [facility] | | | lower extremity | | + + + + | 2021-12-04 00:00 | Cellulitis and abscess of | [facility] | | | lower extremity | | + + + + | 2021-12-04 00:00 | Cellulitis and abscess of | [facility] | | | lower extremity | | + + + + | 2022-02-07 00:00 | Cellulitis of right lower | [facility] | | | leg | | + + + + | 2022-02-07 00:00 | Cellulitis of right lower | [facility] | | | leg | | + + + + | 2022-02-07 00:00 | Cellulitis of right lower | [facility] | | | leg | | + + + + | 2022-04-02 00:00 | Gastroparesis | [facility] | + + + + | 2022-04-02 00:00 | Gastroparesis | [facility] | + + + + | 2022-04-30 00:00 | Diabetic gastroparesis | [facility] | | | associated with type 2 | | | | diabetes mellitus | | + + + + | 2022-04-30 00:00 | Cannabis use disorder | [facility] | + + + + | 2022-04-30 00:00 | Chronic bronchitis | [facility] | + + + + | 2022-08-09 00:00 | Urinary tract infection | [facility] | + + + + Procedures No [...] (missing) | | (unavailable | 05:12:08 | Aramnd | | | | | [...]
[~2022-10-19 20:29] MED LIST changes: +CEPHALEXIN500 MG PO; +ONDANSETRON ODT4 MG PO
[2022-10-19] MEDS ORDERED: POTASSIUM CHLO10 ME2 PO (20:51)
[2022-10-19] MEDS ORDERED: INSULIN GL100 UNIT/2 SQ (20:51)
[2022-10-19 21:41] LABS: HEMATOCRIT 34.9 % (35.0-50.0); HEMOGLOBIN 11.2 g/dL (12.0-18.0); MCH 29.1 (27-36); MCHC 32.1 g/dl (30-36); MCV 90.5 fl (81-99); PLATELET COUNT 372 K/uL (140-440); RBC 3.86 M/ul (4.3-5.7)
[2022-10-19 21:54] LABS: BANDS, MANUAL DIFF 5; EOSINOPHILS, MANUAL DIFF 1; LYMPHOCYTES, MANUAL DIFF 12; MONOCYTES, MANUAL DIFF 6; NEUTROPHILS, MANUAL DIFF 76
[2022-10-19 21:59] LABS: ALBUMIN 2.7 g/dL (3.4-5.0); ALBUMIN/GLOBULIN RATIO 0.54 (1.1-2.4); ANION GAP 6.6 (7-21); BILIRUBIN, TOTAL 0.5 ng/dL (0.2-1.0); BUN/CREATININE RATIO 25.84 (6.0-28.6); CALCIUM 8.6 mg/dL (8.5-10.1); CREATININE, SERUM 1.78 mg/dL (0.55-1.02); POTASSIUM 2.6 mmol/L (3.5-5.1); PROTEIN, TOTAL 7.7 g/dL (6.4-8.2)
[2022-10-19 22:00] LABS: LACTIC ACID, BLOOD 0.6 mmol/L (0.4-2.0)
[2022-10-19 22:33] LABS: BILIRUBIN, URINE NEGATIVE (negative); BLOOD/HGB, URINE TRACE-I (Negative); KETONE, URINE NEGATIVE (Negative); LEUK ESTERASE, URINE NEGATIVE (negative); NITRITE, URINE NEGATIVE (negative); PH, URINE 5.5 (5-7)
[2022-10-19 22:39] LABS: BACTERIA, URINE 4+ /hpf (negative); CRYSTALS, URINE NONE SEEN (0-1+); WHITE BLOOD CELLS, URINE >50 /HPF (0-5)
[2022-10-19 22:41] LABS: CASTS, URINE NONE SEEN \\lpf; EPITHELIAL CELLS, URINE SQUAMOUS 1+ /lpf (0-1+); REFLEX CULTURE, URINE Yes (No)
[2022-10-19 23:36] VITALS: BP 161/63
--- NOTE | 2022-10-19 23:51 | NUR ---
PT TO FLOOR VIA STRETCHER WITH ED RN. ALERT AND ORIENTED. ABLE TO SLIDE TRANSFER SELF FROM STRETCHER TO BED. BEDSIDE REPORT RECEIVED. VS AND WEIGHT OBTAINED. PT REPORTS "FEELING FUNNY." BLOOD SUGAR 72. SNACK PROVIDED. WARRANTY MANAGER IN ROOM FOR ADMISSION.
--- NOTE | 2022-10-20 00:30 | NUR ---
PT SITTING ON SIDE OF BED, FINISHED WITH SANDWICH. PT REPORTS FEELING MUCH BETTER AFTER EATING. ADMISSION ASSESSMENT COMPLETE. RLE WOUND ON BASE OF GREAT TOE OPEN TO AIR WITH SCANT AMOUNG SEROSANG DRAINAGE. RIGHT GREAT TOE BLACK IN COLOR. CELLULITIS NOTED IN RIGHT CALF AREA. CELLULITIS OUTLINE. PICTURES TAKEN OF WOUNDS AND PLACED IN CHART AFTER CONSENT SIGNED. RLE ELEVATED ON PILLOWS. PT DENIES PAIN OR NAUSEA. IVF/POTASSIUM INFUSING PER ORDER. PERSONAL CELL PHONE, PERINATAL COORDINATOR, AND BLOOD SUGAR MONITOR ON BEDSIDE TABLE. PT ORIENTED TO ROOM AND NURSE CALL LIGHT. PT DENIES QUESTIONS OR CONCERNS. CALL LIGHT IN REACH.
--- NOTE | 2022-10-20 02:19 | NUR ---
PT RESTING WITH EYES CLOSED. AWAKENS EASILY. VS AND I&O OBTAINED. PT UP TO BR WITH FWW AND SBA TO VOID 500 ML. PT INCONTINENT OF URINE WELL. PT UNABLE TO DO OWN JEREMY CARE, STAFF ASSIST. CLEAN BRIEF IN PLACE. BACK TO BED, DIMITRIS WELL. PT SOB WITH ACTIVITY, STATES "NO WORSE THAN ANY OTHER TIME." SpO2 LOW 90'S ON RA. RLE ELEVATED ON PILLOWS. NO FURTHER NEEDS.
[2022-10-20 02:43] VITALS: BP 107/70
--- NOTE | 2022-10-20 04:02 | NUR ---
PT LYING ON LEFT SIDE RESTING WITH EYES CLOSED. RESPIRATIONS EVEN. CALL LIGHT IN REACH.
[2022-10-20 04:39] VITALS: BP 100/63
--- NOTE | 2022-10-20 04:44 | NUR ---
PT CALLED TO USE BSC. BY THE TIME THIS RN ENTERED ROOM PT WAS INCONTINENT OF LARGE AMOUNT URINE. JEREMY CARE DONE. CLEAN ATTENDS AND GOWN IN PLACE. PT REPOSITIONED SELF TO RIGHT SIDE. NO FURTHER NEEDS.
[2022-10-20 05:35] LABS: HEMATOCRIT 31.8 % (35.0-50.0); HEMOGLOBIN 10.5 g/dL (12.0-18.0); MCH 29.6 (27-36); MCV 89.8 fl (81-99); PLATELET COUNT 331 K/uL (140-440); RBC 3.54 M/ul (4.3-5.7); RDW 14.9 (10.5-15.0)
[2022-10-20 05:45] LABS: ANION GAP 7.9 (7-21); BUN/CREATININE RATIO 26.87 (6.0-28.6); CALCIUM 8.2 mg/dL (8.5-10.1); CREATININE, SERUM 1.6 mg/dL (0.55-1.02); MAGNESIUM 2.1 mg/dL (1.8-2.4); POTASSIUM 2.9 mmol/L (3.5-5.1)
[2022-10-20 05:49] LABS: BANDS, MANUAL DIFF 7; LYMPHOCYTES, MANUAL DIFF 23; NEUTROPHILS, MANUAL DIFF 70
--- NOTE | 2022-10-20 05:50 | NUR ---
CALLED TO CLARIFY IV ABX ORDERS. TELEPHONE ORDERS RECEIVED VERIFIED WITH READBACK METHOD.
--- NOTE | 2022-10-20 07:22 | NUR ---
REPORT RECEIVED FROM NIGHT RN, ALL QUESTIONS ANSWERED. PT SITTING UP AWAKE IN BED. DENIES NEEDS AT THIS TIME. CALL LIGHT IN REACH.
--- NOTE | 2022-10-20 08:08 | NUR ---
PT CBBG TAKEN @ 07:40 (234), RELAYED TO HARDIK KHALIL. PT WATER REFILLED, FRESH COFFEE GIVE. PT SITTING ON EDGE OF BED, DANGLE, NO OTHER NEEDS AT THIS TIME. CALL LIGHT IN REACH.
--- NOTE | 2022-10-20 08:28 | NUR ---
SPOKE TO PATIENT ABOUT THE DISCHARGE PLAN.PATIENT PLANS TO GO HOME WHERE SHE LIVES WITH HER DANIEL, DANIEL'S AND CHILDEN. PATIENT HAS CHRONIC DX DM,COPD,CHF AND LEFT AKA. PATIENT USES A WHEELCHAIR. PATIENT LIVES DOWNSTAIRS AND DOES NOT USE THE STAIRS IN THE PATIENT'S HOUSE. PATIENT IS ABLE TO DO HER OWN ADLS.PATIENT CAN AFFORD FOOD AND HOUSING. PATIENT HAS FRIENDS AND FAMILY THAT WILL HELP PATIENT NEEDED. PATIENT USES THE [employer] [facility] TO MAKE MD APPOINTMENTS.PATIENT HAS CHANGED TO DR. TAVERAS SINCE DR. ARIZA IS NO LONGER IN [place].
--- NOTE | 2022-10-20 08:38 | NUR ---
PT CALLED. ASSISTED PT 1PA/WALKER TO BEDSIDE COMMODE AND BACK TO BED. PT TOLERATED WELL. PT SITTING AT SIDE OF BED DRINKING COFFEE. DENIES FURTHER NEEDS AT THIS TIME. CALL LIGHT WITHIN REACH.
--- NOTE | 2022-10-20 09:05 | NUR ---
PT TO MRI VIA WHEELCHAIR
--- NOTE | 2022-10-20 10:14 | NUR ---
PT CALLED FOR ASSITANCE UP TO BSC. PT ABLE TO STAND & PIVOT W/FWW NO HANDS ON ASSISTANCE. PT PERFORMED OWN JEREMY CARE, PIVOT BACK INTO BED W/FWW. PT SITTING ON EDGE OF BED BRUSHING HER HAIR (REFUSED SHOWER CAP). NO OTHER NEEDS AT THIS TIME, CALL LIGHT IN REACH.
[2022-10-20] MEDS ORDERED: VITAMIN D21250 MCG PO (12:27)
--- NOTE | 2022-10-20 12:57 | NUR ---
medications reconciled using pharmacy records, PCP chart notes and patient interview
--- NOTE | 2022-10-20 13:18 | NUR ---
PT IN BED. DENIED NEEDS. EXERCISED MINISTRY OF PRESENCE PT TALKED OF FAMILY LIFE. CONSENTED TO PRAYER. PRAYED FOR HEALING.
[2022-10-20 14:24] VITALS: BP 109/86
--- NOTE | 2022-10-20 15:22 | NUR ---
AFTERNOON ASSESSMENT COMPLETE, PT SITTING UP IN RECLINER WITH RLE ELEVATED. PULSES FOUND WITH DOPPLER. +2 GENERALIZED EDEMA TO RLE. REDNESS CONTAINED WITHIN PREVIOUS OUTLINES. PT REPORTS NO PAIN. GREAT TOE BLACK, NO CHANGE SIN COLOR. CLEAR LUNG SOUNDS. PT DENIES FURTHER NEEDS AT THIS TIME. CALL LIGHT IN REACH.
[2022-10-20 15:35] LABS: ANION GAP 8.8 (7-21); BUN/CREATININE RATIO 25.84 (6.0-28.6); CALCIUM 8.4 mg/dL (8.5-10.1); CREATININE, SERUM 1.78 mg/dL (0.55-1.02); POTASSIUM 3.8 mmol/L (3.5-5.1)
--- NOTE | 2022-10-20 16:00 | NUR ---
IN IV PUMP ALARMING, RESOLVED. PT DENIES ANY OTHER NEEDS AT THIS TIME. CALL LIGHT IN REACH.
--- NOTE | 2022-10-20 16:33 | NUR ---
LE 1605: THIS RN COMES DOWN FOR A WOUND CONSULT OF THE RIGHT GREAT TOE (POSTERIOR/PLANTAR SURFACE). THE PT REPORTS THAT SHE FIRST NOTICED SOMETHING WAS WRONG WITH HER TOE WHEN SHE SAW IT WAS BLACK; HER NEPHEW FOUND A PIECE OF GLASS STUCK IN HER TOE AND PULLED IT OUT. THE WOUND IS CHARACTERISTIC OF A PUNCTURE WOUND WITH CALLOUSED EDGES. THE MAJORITY OF THE TOE IS PURPLISH/BLACK. THE WOUND MEASURES 0.8CM X 0.4CM X 0.5CM, THERE IS UNDERMINING AROUND 100% OF THE WOUND TO THE POINT THAT THE OUTER LAYER OF SKIN IS NOT DIRECTLY ATTACHED TO THE TISSUE UNDERNEATH. HAD THIS RN HAD A FLEXIBLE MEASURING DEVICE IT IS VERY LIKELY THE STICK COULD GO ALL THE WAY AROUND TO THE FRONT OF THE TOE. UNDERMINING MEASURES FOLLOWS: 12: 0.7CM , 3: 1.4CM, 6: 0.7CM, 9: 1.7CM. THE BASE OF THE WOUND IS DARK PURPLE/BLACK. PREVIOUSLY STATED THE EDGES ARE CALLOUSED, BUT ROUGHLY INTACT. SEROSANGUINOUS/PURULENT DRAINGE CAN BE EXPELLED FROM THE WOUND. THERE IS A FOUL ODOR, EVEN AFTER CLEANING, INDICATIVE OF INFECTION. THE PERIWOUND SKIN IS DRY, BUT INTACT. THE PT REPORTS NO PAIN, STATING SHE CAN'T FEEL HER FOOT/TOES. THE WOUND IS CLEANSED, MEASURED, AND PHOTOGRAPHED. THE WOUND IS DRESSED WITH IODOSORB, NON-ADHESIVE AG FOAM, AND SECURED IN PLACE WITH FLEXICON AND MEDIPORE TAPE. JENNI 1633: DR. GAUTAM ARRIVES TO MED SURG FOR FURTHER CONSULTATION OF THE RIGHT GREAT TOE. THIS RN SUSPECTS THE NEED FOR SOME SORT OF DEBRIDEMENT, BELIEVING PODIATRY IS THE BEST OPTION FOR FURTHER EVALUATION.
--- NOTE | 2022-10-20 16:51 | NUR ---
DR. GAUTAM DEBRIDE THE RIGHT GREAT TOE, REMOVING A GOOD PORTION OF THE PERIWOUND SKIN. REVALING DEEP RED, PURPLISH/BLACK TISSUE. DR. ANDINO DOES TAKE CULTURES OF THE WOUND. HE IS REDRESSING THE WOUND. THIS RN WILL DEFER WOUND CARE/TREATMENT ORDERS TO DR. ANDINO.
--- NOTE | 2022-10-20 17:00 | NUR ---
recieved shift report from nurse. patient is currently in room talking with dr ferrer as he is wrapping her right great toe.
[2022-10-20 17:37] VITALS: BP 115/49
--- NOTE | 2022-10-20 18:27 | NUR ---
pt requested to move from chair to bed. pt is currently laying on her left side watching tv. no other cares requested call light within reach
--- NOTE | 2022-10-20 19:31 | NUR ---
PT LYING IN BED AWAKE IN NO ACUTE DISTRESS. IV FLUIDS RUNNING THROUGH IV IN LEFT AC. CALL LIGHT WITHIN REACH. NO NEW NEEDS AT THIS TIME.
[2022-10-20 19:43] VITALS: BP 109/56
[2022-10-21] VITALS (7 sets, daily range): BP systolic 101–132; BP diastolic 48–80
--- NOTE | 2022-10-21 00:58 | NUR ---
PT CALL LIGHT ON. PT REQUESTING HELP TO BEDSIDE COMMODE. PT VOIDED AND HAD A BM. PT RETURNED TO BED AND PROVIDED SUPPLIES FOR ORAL CARE AFTER STATING "MY MOUTH SMELLS/FEELS GROSS". PT COMPLETED ORAL CARE AND ASKED FOR AN EMESIS BAG. PT STATED "I FEEL NAUSEOUS". PT DENIED NEED FOR NAUSEA MEDICATION WHEN ASKED. PT WILL LET STAFF KNOW IF NAUSEA GETS WORST. NO FURTHER NEEDS. CALL LIGHT IN REACH.
--- NOTE | 2022-10-21 07:16 | NUR ---
PATIENT RESTING IN BED ON SIDE, RESPIRATIONS EVEN AND NON LABORED. PATIENT HAS NO NOTABLE DISTRESS. PERSONAL SUPPLIES AND CALL LIGHT WITHIN REACH.
--- NOTE | 2022-10-21 07:40 | NUR ---
THIS CUSTOMER SERVICE ADVISOR HAS TAKEN OVER CARES FOR THIS PT FROM [employer] CUSTOMER SERVICE ADVISOR. BLOOD SUGAR OBTAINED. PT DENIES ANY NEEDS AT THIS TIME. CALL LIGHT WITHIN REACH.
--- NOTE | 2022-10-21 10:40 | NUR ---
Attempted to see pt, she is sleeping. Not awakened. Will return later.
--- NOTE | 2022-10-21 12:55 | NUR ---
PT SITTING IN CHAIR WHERE PT HAD PLACED HER. HAD VOMIT BAG IN HAND. STATED HAD NOT THROWN UP BUT WAS FEELING NASEOUS. ASKED FOR PRAYER. PRAYED FOR HEALING AND PEACE. INFORMED HARDIK BOLANOS OF PT CONDITION.
--- NOTE | 2022-10-21 13:28 | NUR ---
PATIENT BACK TO BED FROM CHAIR, TOLERATED TRANSFER WELL WITH FWW/SBA. PATIENT REPORTS NAUSEA, ZOFRAN 4MG ODT PROVIDED AT THIS TIME. IV FLUIDS/ABX INFUSING PER PROIVER ORDER. NO CURRENT NEEDS, PERSONAL SUPPLIES AND CALL LIGHT WITHIN REACH OF PATIENT.
--- NOTE | 2022-10-21 15:00 | NUR ---
Spoke with pt. She plans on dc to home when cleared following her amputation. If IV antibiotics are needs on dc she would like home infusions. I spoke with Dr. Palomino and the plan for now is antibiotics following surgery and dc on Tuesday with PO. Pt does not want HH for PT. She feels she will be ok as long as she can pivot transfer. No other needs. Paperwork for Home infusions started and called [facility]. Will hold off for now until further orders received.
--- NOTE | 2022-10-21 16:15 | NUR ---
Called [facility] patient's follow-up appointment on 10/27/22 at 1300. They will call patient to complete scheduled time for pick-up.
--- NOTE | 2022-10-21 16:32 | NUR ---
1440- WAS ASKED TO PLACE MIDLINE FOR 2 WEEKS OF IV ABX. DISCUSSED WITH PT THE RISKS AND BENEFITS OF THE MIDLINE. PT WISHES TO PROCEED. THE PT'S LEFT ARM WAS EXAMINED. THE CEPAHLIC, BRACHIAL, AND BASILIC VEINS WERE EXAMINED. THE CEPHALIC VEIN WAS CHOSEN IT WAS APPROXIMATELY 0.75 CM BELOW THE SURFACE. THE 18G POWERGLIDE WOULD TAKE UP APPROXIMATELY 25% OF THE VEIN ACCORDING TO THE SITE RITE 8. DARK, RED, NON-PULSITILE BLOOD RETURNED. THE GUIDEWIRE AND MIDLINE CATHETER EASILY ADVANCED INTO THE VEIN. PT THANKFUL FOR THE LINE. 1539- PT ASKED FOR THE MIDLINE TO BE REPLACED WHERE IT IS PLACED IS HURTING HER ARM WHEN SHE TRIES TO FLEX HER ARM OR GET UP. PT'S DRESSING IS REMOVED AND STATLOCK MOVED TO ANOTHER LOCATION AND REDRESSED. PT STATES THIS FEELS "MUCH BETTER" WITH THE STATLOCK MOVEMENT. PT NO LONGER THINKS THE MIDLINE NEEDS REPLACED. PT THANKFUL FOR THIS.
--- NOTE | 2022-10-21 16:59 | NUR ---
DR. ANDINO IN TO SEE PATIENT AT THIS TIME. SURGICAL CONSENT OBTAINED WITH PROVIDER/PATIENT FOR PLANNED SURGERY TOMORROW. VORB FROM DR. ANDINO TO MAKE PATIENT NPO STATUS AT MIDNIGHT TONIGHT. NO FURTHER NEEDS.
--- NOTE | 2022-10-21 20:19 | NUR ---
Pt assesed. No pain. will be NPO at midnight. Will continue to monitor.
--- NOTE | 2022-10-21 21:08 | NUR ---
CAlled Dr. Muniz to get order for ACU check changes after midnight. Got orders for q6 sugar check with q6 insulin (lispro).
[2022-10-22] VITALS (7 sets, daily range): BP systolic 114–141; BP diastolic 56–88
--- NOTE | 2022-10-22 00:19 | NUR ---
Pt used commode, r great toe dressing fell off. Re dressed with guaze and coban.
--- NOTE | 2022-10-22 05:20 | NUR ---
Called Dr. Muniz if we need am labs/pre surgery lab. No labs needed.
--- NOTE | 2022-10-22 06:40 | NUR ---
Pt had a fair night, no complains of pain, r toes has strong ordor, voiding adequetely. Passing gas. Has plan for surgery today. Pt has been NPO since midnight.
--- NOTE | 2022-10-22 07:20 | NUR ---
PT AWAKE, ALERT AND ORIENTED X4. PT IS ON HER PHONE, NO DISTRESS. CALL LIGHT WITHIN REACH OF PATIENT.
[2022-10-22 08:34] LABS: BASOPHILS 0.4 % (0-2); EOSINOPHILS 1.3 % (0-6); HEMATOCRIT 30.7 % (35.0-50.0); LYMPHOCYTES 11.4 % (24-44); MCH 29.5 (27-36); MCHC 32.6 g/dl (30-36); MCV 90.7 fl (81-99); MONOCYTES 7.4 % (0-12); NEUTROPHILS 79.5 % (39-80); PLATELET COUNT 365 K/uL (140-440); RBC 3.39 M/ul (4.3-5.7); RDW 15.5 (10.5-15.0)
[2022-10-22 08:43] LABS: ANION GAP 11.7 (7-21); BUN/CREATININE RATIO 28.23 (6.0-28.6); CALCIUM 8.6 mg/dL (8.5-10.1); CREATININE, SERUM 1.7 mg/dL (0.55-1.02); POTASSIUM 3.7 mmol/L (3.5-5.1)
--- NOTE | 2022-10-22 09:26 | NUR ---
PER AM MEETING PATIENT TO GO TO OR AT NOON FOR AMPUTATION. NO FURTHER CASE MANAGEMENT CONCERNS AT THIS TIME. WILL WAIT FOR POST OP TO DISCUSS DISCHARGE NEEDS.
--- NOTE | 2022-10-22 10:11 | NUR ---
PATIENT SITTING UP ON EDGE OF BED ON HER PHONE, NO DISTRESS. IV SITE REMAINS PATENT, FLUIDS/ABX INFUSING PER PROVIDER ORDER. PATIENT HAS NO CURRENT NEEDS.
--- NOTE | 2022-10-22 10:18 | NUR ---
PT IN BED. APPEARED TO BE SLEEPING. DID NOT DISTURB. SAID SILENT PRAYER FOR ONGOING HEALING AND DISCERNMENT OF BEST PATH TOWARD HEALTH.
--- NOTE | 2022-10-22 12:20 | NUR ---
PT LEFT THE FLOOR FOR SURGERY.
--- NOTE | 2022-10-22 14:21 | NUR ---
10/22/22 1421 Adelina Martinez 1329- PT ARRIVES TO PACU, SEMI [place] POSITION. DRESSING IN PLACE. PT ALERT AND TALKING, FOLLOWING COMMANDS. PT TELLING JOKES AND IN GOOD SPIRITS. MIDLINE TO LEFT BICEP IN PLACE WITH LR AT TKO, DRESSING WNL. DRESSING TO RIGHT FOOT INTACT AND CLEAN. 1355- STOCKING NET DRESSING PLACED TO RIGHT FOOT WITH POST OP SHOE PER DR ASTUDILLO WRITTEN ORDERS. 1400- PT REPORTS BUTTOCKS PAINFUL AND NUMB. ROLLED PT TO RIGHT SIDE, PT REPORTS IMMEDIATE RELIEF. RIGHT FOOT REMAINS ELEVATED ON PILLOWS.
--- NOTE | 2022-10-22 14:36 | NUR ---
PATIENT BACK TO MEDICAL FLOOR FROM SURGERY DEPT. RIGHT FOOT DRESSING IS CDI. PATIENT IS ALERT AND ORIENTED X4, NO DISTRESS. PATIENT DENIES PAIN AT THIS TIME, SHE REPORTS NUMBNESS TO RIGHT FOOT. RIGHT PEDAL PULSE STRONG/INTACT. PATIENT HAS NO ACUTE DISTRESS. CALL LIGHT WITHIN REACH.
--- NOTE | 2022-10-22 17:10 | NUR ---
ADRIANA FROM DR. HARO TO CHANGE INSULIN SLIDING SCALE AND BLOOD SUGAR CHECKS FROM Q6 TO ACHS.
--- NOTE | 2022-10-22 18:50 | NUR ---
PATIENT UP IN CHAIR, NO DISTRESS. PATIENT'S VITAL SIGNS ARE STABLE, AFEBRILE. RIGHT LEG ELEVATED, DRESSING REMAINS CDI, BOOT IN PLACE. IV SITE REMAINS PATENT, FLUIDS INFUSING PER PROVIDER ORDER. CALL LIGHT WITHIN REACH.
--- NOTE | 2022-10-22 19:32 | NUR ---
PT SITTING UP IN CHAIR WATCHING TV. SAFETY PRECAUTIONS IN PLACE. NO NEEDS EXPRESSED AT THIS TIME. CALL LIGHT WITHIN REACH.
[2022-10-23 05:52] VITALS: BP 129/59
--- NOTE | 2022-10-23 07:20 | NUR ---
REPORT RECEIVED ROM UR COORDINATOR RN, ALL QUESTIONS ANSWERED.
--- NOTE | 2022-10-23 09:21 | NUR ---
MORNING ASSESSMENT COMPLETE. PT UP TO COMMODE, 2 PERSON ASSIST WITH FWW. PT TOLERATED WELL, ABLE TO INDEPENDENTLY STAND AND PIVOT, MINIMAL HELP REQUIRED, CONTACT GUARD. PT C/O DRY COUGH, WHEEZES HEARD THROUGHOUT LUNG FELIX. PT STATES COUGH IS CHRONIC. PT RLE WITH STRONG PULSES, GOOD CAP REFILL. DRESSING AND BOOT TO RL FOOT IN PLACE, CDI. PT DENIES PAIN AT THIS TIME. CALL LIGHT IN REACH.
[2022-10-23 15:08] VITALS: BP 138/54
[2022-10-23 18:53] VITALS: BP 143/63
--- NOTE | 2022-10-23 19:33 | NUR ---
REPORT RECEIVED FROM DAY SHIFT RN. PT LYING IN BED ALERT AND ORIENTED. DENIES NEEDS. WHITE BOARD UPDATED. CALL LIGHT IN REACH.
[2022-10-23 20:31] VITALS: BP 126/71
--- NOTE | 2022-10-23 21:12 | NUR ---
EVENING ASSESSMENT COMPLETE. SCHEDULED MEDS ADMIN PER EMAR. PT DENIES PAIN IN RIGHT FOOT. REPORTS NECK AND SHOULDER "SORENESS." WARM COMPRESS PROVIDED. PT DENIES NAUSEA. RIGHT FOOT DRESSING CDI. BOOT IN PLACE. BRISK CAP REFILL NOTED. IV IN RIGHT FOREARM DC'D WNL PER REQUEST. MIDLINE IN LEFT UPPER ARM FLUSHED WITH NS. BLOOD RETURN NOTED. IVF INFUSING WNL. PT DENIES QUESTIONS OR CONCERNS. CALL LIGHT IN REACH.
--- NOTE | 2022-10-23 22:10 | NUR ---
CALL LIGHT ANSWERED. PT UP TO BSC WITH FWW AND SBA TO VOID. STAFF ASSIST WITH JEREMY CARE. CLEAN ATTENDS IN PLACE. NO FURTHER NEEDS AT THIS TIME.
--- NOTE | 2022-10-24 00:54 | NUR ---
PT INCONTINENT OF URINE. TRAVELING ENGINEER ASSIST WITH JEREMY CARE AND CLEAN BRIEF. PT REPORTS 7/10 SHOULDER/NECK PAIN. PRN FOR PAIN ADMIN. PRN BREATHING TX ADMIN FOR C/O SOB. RLE ELEVATED ON PILLOW. NO FURTHER NEEDS.
--- NOTE | 2022-10-24 02:18 | NUR ---
PT UP TO BSC WITH ASSIST FROM MOVING CONSULTANT. ASSESSMENT COMPLETE. PT DENIES PAIN. FRESH WATER PROVIDED. NO FURTHER NEEDS.
[2022-10-24 04:26] VITALS: BP 137/70
--- NOTE | 2022-10-24 04:32 | NUR ---
PT UP TO BSC WITH INDUSTRIAL YARD BRAKE COUPLER ASSIST. VS AND I&O OBTAINED. NO FURTHER NEEDS. CALL LIGHT IN REACH.
--- NOTE | 2022-10-24 08:27 | NUR ---
MORNING ASSESSMENT COMPELTE. PT SITTING UP IN RECLINER EATING BREAKFAST. PT IN GOOD SPIRITS THIS AM. REDNESS TO RLE REMAIN THE SAME, WITHIN PREVIOUS OUTLINE, NOT WARM TO THE TOUCH. 1+ EDEMA TO RLE. FOOT IN DRESSING AND BOOT, CAP REFILL TO TOES GOOD. PT DENIES PAIN AT THIS TIME. EXP WHEEZES HEARD THROUGHOUT LUNG FEILDS. PT STATES SOB IMPROVED AFTER ADDITION OF PRN NEBS. PT DENIES FURTHER NEEDS AT THIS TIME. CALL LIGHT IN REACH.
--- NOTE | 2022-10-24 11:32 | NUR ---
PT REQUESTING TO USE COMMODE. PT ASSISTED 2 PERSON TO ATTEMPT TO STAND, PT WEAK AND UNABLE TO STAND AFTER 4 ATTEMPTS WITH 2 PERSON MAX ASSIST. PT PROVIDED PUREWICK AT THIS TIME. WILL BRING PAIN MEDICATION FOR 6/10 SHOULDER AND ARM PAIN. WILL REASSESS PT MOBILITY.
[2022-10-24 13:37] VITALS: BP 134/78
--- NOTE | 2022-10-24 16:15 | NUR ---
PT CALLED FOR WATER REFILL. EMPTIED PUREWICK CANISTER. PT HAD NO OTHER NEEDS.
[2022-10-24 18:34] VITALS: BP 141/77
--- NOTE | 2022-10-24 19:47 | NUR ---
REPORT RECEIVED FROM DAY SHIFT RN. PT LYING IN BED ALERT AND ORIENTED. DENIES NEEDS. WHITE BOARD UPDATED. CALL LIGHT IN REACH.
[2022-10-24 20:26] VITALS: BP 142/77
--- NOTE | 2022-10-24 20:57 | NUR ---
EVENING ASSESSMENT COMPLETE. SCHEDULED MEDS ADMIN PER EMAR. PT REPORTS 09/20 SHOULDER AND NECK PAIN. PRN FOR PAIN ADMIN PER EMAR. PT INCONTINENT AROUND PUREWICK. JEREMY CARE DONE. PUREWICK REPLACED. 2PA TO REPOSITION TO BED. PT SOB WITH ACTIVITY. RT IN FOR BREATHING TX. RLE ELEVATED ON PILLOWS. DRESSING CDI. BRISK CAP REFILL NOTED. PT DENIES PAIN IN RIGHT FOOT. VS AND I&O OBTAINED. PT DENIES FURTHER NEEDS. CALL LIGHT IN REACH.
--- NOTE | 2022-10-24 23:15 | NUR ---
IV PUMP ALARMING. ISSUE RESOLVED. PT RESTING WITH EYES CLOSED ON LEFT SIDE. RESPIRATIONS EVEN. NO APPARENT DISTRESSS.
--- NOTE | 2022-10-25 | NUR ---
PATIENT CALLED STATING "I NEED HELP HERE". CHANGED PATIENT'S ATTEND SOAKED. PUREWICK WAS LEAKING. PATIENT IS SITTING AT THE EDGE OF THE BED. CALL LIGHT WITHIN REACH.
--- NOTE | 2022-10-25 00:18 | NUR ---
PT SITTING ON THE SIDE OF BED. TEARFUL. REPORTS SHOULDER/NECK PAIN PREVENTING HER FROM SLEEPING. REPORTS TYLENOL NOT EFFECTIVE IN CONTROLLING PAIN. MD CALLED. NEW TELEPHONE ORDERS RECEIVED VERIFIED WITH READBACK METHOD.
--- NOTE | 2022-10-25 02:15 | NUR ---
CALL LIGHT ANSWERED. PT READY TO LIE DOWN. IN ROOM TO ASSIST PT ELEVATE RIGHT LEG. PUREWICK PATENT WITH CONCENTRATED YELLOW URINE. PT REPORTS SOME IMPROVEMENT IN SHOULDER/NECK PAIN. NO FURTHER NEEDS.
--- NOTE | 2022-10-25 04:33 | NUR ---
PT RESTING IN BED WITH EYES CLOSED. RESPIRATIONS EVEN. CALL LIGHT IN REACH.
[2022-10-25 05:42] VITALS: BP 155/67
--- NOTE | 2022-10-25 06:30 | NUR ---
VS AND I&O OBTAINED. PUREWICK CHANGED AFTER JEREMY CARE. PT SITTING ON SIDE OF BED. BOOT TO RIGHT FOOT IN PLACE. COFFEE AND WATER PROVIDED. PRN FOR PAIN ADMIN PER EMAR. NO FURTHER NEEDS.
--- NOTE | 2022-10-25 07:55 | NUR ---
PT RESTING EYES CLOSED AT TIME OF SHIFT REPORT LEFT UNDISTURBED. AWAKE NOW SITTING UP ON EDGE OF BED, DENIES NEEDS OF. COFFEE AND FRESH H20 AT BEDSIDE CALL LIGHT IN REACH.
--- NOTE | 2022-10-25 08:03 | NUR ---
PT CBG TAKEN, 219, WARM WASH CLOTH GIVEN FOR FACE/HANDS. FRESH COFFEE TAKEN TO PT. PT IS SITTING ON EDGE OF BED (DNAGLE) W/BESIDE TABLE SET UP FOR BREAKFAST. NO OTHER NEEDS AT THIS TIME. CALL LIGHT IN REACH.
[2022-10-25 08:32] VITALS: BP 155/67
--- NOTE | 2022-10-25 08:47 | NUR ---
SPOKE TO PATIENT ABOUT THE DISCHARGE PLAN. PATIENT PLANS TO GO HOME WITH HER FAMILY.PATIENT HAS A WHEELCHAIR AND IS ABLE TO GET AROUD THE HOUSE USING THE WAKER. PATIENT WAS OFFERED HOME HEALTH OT/PT AFTER DISCHARGED AND PATIENT REFUSED. PATIENT WILL BE DC'd TODAY PER MD IF PATIENT TOLERATES NEW PO ABX.
--- NOTE | 2022-10-25 09:01 | NUR ---
BREAKFAST WELL TOLERATED PT CONTINUES UP ON EDGE OF BED. REPORTS LEFT SHOULDER IS STILL VERY SORE HURTS 08/21 WITH MOVEMENT. DENIES NEEDS AT THIS TIME
[2022-10-25] MEDS ORDERED: LEVOFLOXACIN500 MG PO (09:18)
[2022-10-25] MEDS ORDERED: AMOX TR-K CLV1 EAC1 PO (09:18)
--- NOTE | 2022-10-25 09:23 | NUR ---
PT RESTING IN BED. APPEARED TO BE SLEEPING. DID NOT ROUSE TO MY KNOCK. PRAYED SILENT PRAYER FOR HEALING.
--- NOTE | 2022-10-25 11:53 | NUR ---
PT TO THE SHOWER STAFF ASSIST. WELL TOLERATED. DC ORDERS WRITTEN TRANSPORT ARRANGEMENTS ARE BEING MADE
--- NOTE | 2022-10-25 12:11 | NUR ---
DC CROSS COUNTRY COACH NOTIFIED OF TRANSPORT NEED FOR DC TODAY, STATES SHE WILL TAKE CARE OF IT. PT AGREES SHE IS READY FOR DC, DENIES QUESTIONS OR CONCERNS
[2022-10-25] MEDS ORDERED: CIPRO500 MG PO (12:30)
--- NOTE | 2022-10-25 12:50 | NUR ---
PT TO TRANSPORT AT 1500 SHE AGREES SHE WILL BE READY. SHE IS DRESSED AFTER SHOWER AND PERSONAL ITEMS PACKED UP. MIDLINE DC'D SITE UNREMARKABLE EDUCATION PROVIDED. RIGHT FOOT DRESSING IS INTACT, BOOT IN PLACE, BRISK CAP REFILL, TOES ARE WARM. PT DENIES PAIN, BUT DOES HAVE UPPER EXTREMITY SORENESS. PT DENIES QUESTIONS OR CONCERNS.
--- NOTE | 2022-10-25 13:30 | NUR ---
PT UP TO BSC 2 PA THEN RETURNS TO SITTING ON THE EDGE OF THE BED.
--- NOTE | 2022-10-26 14:00 | NUR ---
Received a message from Maria D requesting a return call. Called pt and she states she is not doing well at home. She has not been able to transfer self and has not been able to crop picker her antibiotics. Her cg is out sick. Pt had a 5 night IP stay and dc on Tuesday. She states she does not care where she goes, but needs rehab. First choice is [facility], [facility], or [facility]. Let her know I will contact these places.
--- NOTE | 2022-10-26 14:30 | NUR ---
Met with Clinic staff for scheduling meeting. Brought up my concern for this pt as she was unable to bead picker her antibiotics. Pt is a clinic pt, but her pcp moved and she is establishing care with [facility] Crist[facility] tomorrow. [facility] irrigation district manager stated they will have there CHW, Raquel Fajardo, pick pts meds up and deliver to her today.
--- NOTE | 2022-10-26 15:30 | NUR ---
Called and updated Maria D. Let her know Conrad Fajardo will call her and deliver pts meds today. I am still working on placement. [facility], [facility], and [facility] do not have beds open. I will try [facility] next.
--- NOTE | 2022-10-27 15:28 | PATH ---
[facility] [address] [place], [place] [address] Signed SPECIMEN(S): A RIGHT HALLUX SPECIMEN SOURCE: A. RIGHT HALLUX CLINICAL HISTORY: Gangrene right foot/cellulitis right lower limb. FINAL PATHOLOGIC DIAGNOSIS: Right hallux: - Ulcerated toe with extensive soft tissue necrosis and focal acute inflammation of the underlying bone consistent with osteomyelitis. - Acute suppurative inflammation extends to the proximal inked soft tissue margin. - Articular bone surface is free of significant pathologic inflammation. JVR:brando:[id number] MICROSCOPIC EXAMINATION: Histologic sections of all submitted blocks are examined by light microscopy. These findings, together with the gross examination, support the pathologic diagnosis. GROSS DESCRIPTION: The specimen, labeled and designated "Harriett, A" and designated on the requisition "right hallux," is received in formalin and consists of a toe (7.0 x 3.4 x 3.3 cm) disarticulated at the metatarsophalangeal joint with red-brown ulceration (7.2 cm in length by 3.3 cm in width) on the plantar aspect of the toe located 0.4 cm from the skin and soft tissue margin (inked blue). The bone underlying the ulceration is red-brown and slightly softened. Manager [employer] sections are submitted following decalcification in decal stat. Cassette Summary: (A1) area of ulceration with underlying bone and skin and soft tissue margin (A2) proximal articulating surface AC (under the direct supervision of a pathologist) The Gross Description was prepared using a voice recognition system. The report was reviewed for accuracy; however, sound-alike word errors, addition and/or deletions may occur. If there is any question about this report, please contact Client Services. PATIENT NAME: LINH PEDRAZA PATHOLOGY DATE OF : 65 REPORT #: [id number] PHYSICIAN: ELISE PATHOLOGY PCP: JOHN ARIZA MD REPORT IS CONFIDENTIAL AND NOT TO BE RELEASED WITHOUT AUTHORIZATION [facility] [address] [facility] [place], [place] [address] Signed PERFORMING LABORATORY: Technical component was performed by [facility], [address] [place] [address] (CLIA# [id number]). Professional interpretation was performed by [facility] - [address] [address] (CLIA#: [id number]). Diagnostician: Sebastian Wilkerson MD Pathologist Electronically Signed 10/27/2022 Copies: ~ PATIENT NAME: LINH PEDRAZA PATHOLOGY DATE OF : 65 REPORT #: [id number] PHYSICIAN: ELISE PATHOLOGY PCP: JOHN ARIZA MD REPORT IS CONFIDENTIAL AND NOT TO BE RELEASED WITHOUT AUTHORIZATION
== END 2022-10-25 14:53 | disposition home or self-care (01) | DRG 240 ==
LOC: ED 20:29 → MS 23:03
PROVIDERS: Internal Medicine; Podiatrist Foot Surgery; ADMIT Internal Medicine; ATTEND Internal Medicine
PROC: 0LBV0ZZ Excision of Right Foot Tendon, Open Approach (ICD-10-PCS; 2022-10-22)
PROC: 02HV33Z Insertion of Infusion Device into Superior Vena Cava, Percutaneous Approach (ICD-10-PCS; 2022-10-22)
PROC: 0Y6M0Z9 Detachment at Right Foot, Partial 1st Ray, Open Approach (ICD-10-PCS; principal; 2022-10-22 12:30)
DX: E11.52 Type 2 diabetes mellitus with diabetic peripheral angiopathy with gangrene (principal); I13.0 Hypertensive heart and chronic kidney disease with heart failure and stage 1 through stage 4 chronic kidney disease, or unspecified chronic kidney disease; I96 Gangrene, not elsewhere classified; Z68.42 Body mass index [BMI] 45.0-49.9, adult; L03.115 Cellulitis of right lower limb; E87.6 Hypokalemia; I50.9 Heart failure, unspecified; E11.42 Type 2 diabetes mellitus with diabetic polyneuropathy; J44.9 Chronic obstructive pulmonary disease, unspecified; E78.5 Hyperlipidemia, unspecified; N18.30 Chronic kidney disease, stage 3 unspecified; E11.22 Type 2 diabetes mellitus with diabetic chronic kidney disease; E11.43 Type 2 diabetes mellitus with diabetic autonomic (poly)neuropathy; E66.9 Obesity, unspecified; K31.84 Gastroparesis; Z87.891 Personal history of nicotine dependence; Z90.49 Acquired absence of other specified parts of digestive tract; Z98.890 Other specified postprocedural states; Z87.19 Personal history of other diseases of the digestive system; Z90.710 Acquired absence of both cervix and uterus; Z95.820 Peripheral vascular angioplasty status with implants and grafts; Z88.5 Allergy status to narcotic agent; Z88.0 Allergy status to penicillin; Z88.2 Allergy status to sulfonamides; Z88.1 Allergy status to other antibiotic agents; Z79.899 Other long term (current) drug therapy; Z79.4 Long term (current) use of insulin; Z79.51 Long term (current) use of inhaled steroids
CPT/HCPCS: 01482; 36415; 36569; 73630; 73723; 80048; 80053; 81001; 83605; 83735; 85025; 87040; 87070; 87075; 87077; 87088; 87186; 87205; 88305; 88311; 90471; 90715; 94640; 94760; 96365; 96375; 97530; 99285-25; A9270; A9577; C1713; C1751; J0696; J0878; J1815; J2405; J2704; J2795; J3010; J3370; J3480; J3490; J7030; J7060

== ENCOUNTER 2022-12-09 16:23 | Inpatient (IN) | payer OTHER ==
[~2022-12-09] VITALS: Ht 170.2 cm; Wt 139.3 kg
--- NOTE | ~2022-12-09 | OR ---
[facility] [address] [place], [place] [address] Draft DATE OF OPERATION: 12/14/2022 SURGEON: Shay Palomino DPM PREOPERATIVE DIAGNOSIS: Osteomyelitis, right foot. POSTOPERATIVE DIAGNOSIS: Osteomyelitis, right foot. ANESTHESIA: IV general with local block, right foot. MATCHBOOK ASSEMBLER: Shay Varela. SPECIMEN TO PATHOLOGY: Soft tissue and bone of right 2nd digit, also bone of right 2nd metatarsal head and bone of right 1st metatarsal. DESCRIPTION OF PROCEDURE: The patient was brought to the operating room and placed on the table in the supine position. Anesthesia Department administered IV sedation after which a local block was given to the right foot using a total of 14 mL of 1:1 mixture 2% lidocaine plain and 0.5% ropivacaine plain. The right leg and foot were then prepped and draped in the usual sterile manner. A remaining open wound was present from the previous right hallux amputation. Preoperative MRIs showed osteomyelitis to the right 2nd digit, right 2nd metatarsal head and distal half-two thirds of the 1st metatarsal. At this time, an ellipse was made around the base of the right 2nd digit extending medially to ellipse the remaining open wound from the previous right hallux amputation and extending proximally along the medial side of the 1st metatarsal. The incision was full thickness through the dermis and soft tissues and deep to bone. The soft tissues were reflected to expose the base of the 2nd digit, which was then disarticulated at the MTPJ. With the exposure of the 1st metatarsal head, the cartilage and subchondral bone at the 1st metatarsal head was entirely loose and mobile within the wound site. The distal 1st metatarsal was discolored and soft and the soft tissues at this time were reflected proximally to expose a significant amount of the 1st metatarsal. Intraoperative fluoroscopy was then used to determine a point at about the proximal one-third kevon on the metatarsal and an PATIENT NAME: LINH PEDRAZA OPERATIVE REPORT DATE OF : 65 REPORT #: [id number] PHYSICIAN: SHAY PALOMINO DPM PCP: ABIMBOLA TAVERAS MD REPORT IS CONFIDENTIAL AND NOT TO BE RELEASED WITHOUT AUTHORIZATION [facility] [address] [place], [place] [address] Draft osteotomy was made at this level. The osteotomy appeared to indicate solid bone and the bone within the marrow area did not appear to be discolored, therefore this appeared to be an adequate amount of debridement to the 1st metatarsal. At this time, attention was redirected to the 2nd metatarsal head. The entire 2nd metatarsal head and neck were then resected using power instrumentation and also sent for pathology. Intraoperative aerobic, anaerobic, and Gram stain obtained at this time from an area of necrotic tissue, which was plantar to the 1st metatarsal. Remaining necrotic soft tissue was noted, predominantly to the plantar 1st metatarsal area and intermetatarsal tissues between 1st and 2nd metatarsal. This area was debrided with hand instrumentation. The surgical site periodically irrigated with the Irrisept irrigation then additional debridement performed as necessary. The antibiotic beads were utilized for this case, this was a calcium sulfate bead with vancomycin and tobramycin in the beads, unfortunately the bead did not entirely set up. Therefore, these were softer, more like a paste, but this was still utilized within the wound site for additional antibiotics. Wound closure then performed using 3-0 nylon monofilament suture, the skin flaps were modified to reduce the amount of space, and the entire surgical site closed primarily. Dressings then applied consisting of Adaptic, Betadine-soaked gauze, 4x4s, ABD pad, Kerlix roll, and Coban for mild/moderate compression. INTRAOPERATIVE COMPLICATIONS: None. ESTIMATED BLOOD LOSS: Less than 5 mL. The patient tolerated the procedure and the anesthesia well, and left the operating room with vascular status intact to the right foot as evidenced by hyperemia with removal of the Esmarch. Shay Palomino DPM PATIENT NAME: LINH PEDRAZA OPERATIVE REPORT DATE OF : 65 REPORT #: [id number] PHYSICIAN: SHAY PALOMINO DPM PCP: ABIMBOLA TAVERAS MD REPORT IS CONFIDENTIAL AND NOT TO BE RELEASED WITHOUT AUTHORIZATION [facility] [address] [place] [address] [place] [address] Draft ASA/SUKHDEEP /[id number] Copies: ~ PATIENT NAME: LINH PEDRAZA OPERATIVE REPORT DATE OF : 65 REPORT #: [id number] PHYSICIAN: SHAY PALOMINO DPM PCP: ABIMBOLA TAVERAS MD REPORT IS CONFIDENTIAL AND NOT TO BE RELEASED WITHOUT AUTHORIZATION
--- OUTSIDE RECORDS SUMMARY | ~2022-12-09 | XMS | Continuity of Care Document ---
Demographics + + + | Address | [address] | | | [place] [address] | + + + | Preferred Language | Unknown | + + + | Marital Status | | + + + | Mormon Affiliation | Unknown | + + + | Race | White | + + + | Ethnic Group | Not or | + + + Author + + + | Author | [facility] | + + + | Organization | [facility] | + + + | Address | [address] | | | [place] [address] | + + + | Phone | | + + + Care Team Providers + + + + | Care C S S Representative Name | Role | Phone | + + + + Unavailable | Unavailable | + + + + Allergies No information. Encounters No information. Functional Status No information. Immunizations No information. Medications No information. 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 | | + + + + | 2022-10-19 23:03 | TYPE 2 DIABETES W DIABETIC | [facility] | | | AUTONOMIC (POLY)NEUROPA | | + + + + | 2022-10-19 23:03 | TYPE 2 DIABETES W DIABETIC | [facility] | | | PERIPHERAL ANGIOPATHY W | | | | GANGRENE | | + + + + | 2022-10-19 23:03 | TYPE 2 DIABETES MELLITUS | [facility] | | | WITH OTHER SKIN COMPLICAT | | + + + + | 2022-10-19 23:03 | OBESITY, UNSPECIFIED | [facility] | + + + + | 2022-10-19 23:03 | HYPERLIPIDEMIA, | [facility] | | | UNSPECIFIED | | + + + + | 2022-10-19 23:03 | HYPOKALEMIA | [facility] | + + + + | 2022-10-19 23:03 | 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 | [facility] | | | FAIL AND STG 1-4/UNSP | | + + + + | 2022-10-19 23:03 | HEART FAILURE, UNSPECIFIED | [facility] | | | | | + + + + | 2022-10-19 23:03 | Gangrene, not elsewhere | [facility] | | | classified | | + + + + | 2022-10-19 23:03 | CHRONIC OBSTRUCTIVE | [facility] | | | PULMONARY DISEASE, | | | | UNSPECIFIED | | + + + + | 2022-10-19 23:03 | GASTROPARESIS | [facility] | + + + + | 2022-10-19 23:03 | CELLULITIS OF RIGHT LOWER | [facility] | | | LIMB | | + + + + | 2022-10-19 23:03 | CELLULITIS OF LEFT LOWER | [facility] | | | LIMB | | + + + + | 2022-10-19 23:03 | BODY MASS INDEX (BMI) | [facility] | | | 45.0-49.9, ADULT | | + + + + | 2022-10-19 23:03 | BURR SANDER (CURRENT) USE OF | [facility] | | | INSULIN | | + + + + | 2022-10-19 23:03 | CUSTODIAL (CURRENT) USE OF | [facility] | | | INHALED STEROIDS | | + + + + | 2022-10-19 23:03 | OTHER CUSTODIAL (CURRENT) | [facility] | | | DRUG THERAPY | | + + + + | 2022-10-19 23:03 | PERSONAL HISTORY OF OTHER | [facility] | | | DISEASES OF THE DIGESTIV | | + + + + | 2022-10-19 23:03 | PERSONAL HISTORY OF | [facility] | | | NICOTINE DEPENDENCE | | + + + + | 2022-10-19 23:03 | ALLERGY STATUS TO | [facility] | | | PENICILLIN | | + + + + | 2022-10-19 23:03 | ALLERGY STATUS TO OTHER | [facility] | | | ANTIBIOTIC AGENTS STATUS | | + + + + | 2022-10-19 23:03 | ALLERGY STATUS TO | [facility] | | | SULFONAMIDES STATUS | | + + + + | 2022-10-19 23:03 | ALLERGY STATUS TO NARCOTIC | [facility] | | | AGENT STATUS | | + + + + | 2022-10-19 23:03 | ACQUIRED ABSENCE OF OTHER | [facility] | | | SPECIFIED PARTS OF DIGES | | + + + + | 2022-10-19 23:03 | ACQUIRED ABSENCE OF BOTH | [facility] | | | CERVIX AND UTERUS | | + + + + | 2022-10-19 23:03 | PERIPHERAL VASCULAR | [facility] | | | ANGIOPLASTY STATUS W | | | | IMPLANTS | | + + + + | 2022-10-19 23:03 | OTHER SPECIFIED | [facility] | | | POSTPROCEDURAL STATES | | + + + + Procedures No information. Results/Labs No information. Social History +--------+ + + | date | description | facility | +--------+ + + Vital Signs No information."
--- OUTSIDE RECORDS SUMMARY | ~2022-12-09 | XMS | Continuity of Care Document ---
Demographics + + + | Address | [address] | | | [place] [address] | + + + | Preferred Language | Unknown | + + + | Marital Status | | + + + | Taoist Affiliation | Unknown | + + + | Race | White | + + + | Ethnic Group | Not or | + + + Author + + + | Author | [place] | + + + | Organization | [place] | + + + | Address | [address] | | | [place] [address] | + + + | Phone | | + + + Care Team Providers + + + + | Care Photographic Machine Operator Name | Role | Phone | [...] + + + | 2022-10-19 23:03 | PILOT CAN ROUTER (CURRENT) USE OF | [facility] | | | INSULIN | | + + + + | 2022-10-19 23:03 | SKILLED NURSING (CURRENT) USE OF | [facility] | | | INHALED STEROIDS | | + + + + | 2022-10-19 23:03 | OTHER SKILLED NURSING (CURRENT) | [facility] | | | DRUG [...]
[~2022-12-09 16:23] MED LIST changes: +AMOX TR-K CLV1 EAC1 PO; +INSULIN GL100 UNIT/2 SQ; +LEVOFLOXACIN500 MG PO; +POTASSIUM CHLO10 ME2 PO; +VITAMIN D21250 MCG PO
[2022-12-09 17:02] LABS: BASOPHILS 0.6 % (0-2); EOSINOPHILS 0.7 % (0-6); HEMATOCRIT 36.1 % (35.0-50.0); HEMOGLOBIN 11.8 g/dL (12.0-18.0); LYMPHOCYTES 10.9 % (24-44); MCH 28.7 (27-36); MCHC 32.7 g/dl (30-36); MCV 87.8 fl (81-99); MONOCYTES 3.5 % (0-12); NEUTROPHILS 84.3 % (39-80); PLATELET COUNT 478 K/uL (140-440); RBC 4.12 M/ul (4.3-5.7); RDW 16.1 (10.5-15.0)
[2022-12-09 17:19] LABS: ALBUMIN 2.6 g/dL (3.4-5.0); ALBUMIN/GLOBULIN RATIO 0.46 (1.1-2.4); ANION GAP 13.2 (7-21); BILIRUBIN, TOTAL 0.5 ng/dL (0.2-1.0); BUN/CREATININE RATIO 23.33 (6.0-28.6); CALCIUM 8.9 mg/dL (8.5-10.1); CREATININE, SERUM 2.4 mg/dL (0.55-1.02); POTASSIUM 3.2 mmol/L (3.5-5.1); PROTEIN, TOTAL 8.3 g/dL (6.4-8.2)
[2022-12-09 17:33] LABS: INFLUENZA B NAA NEGATIVE (NEGATIVE); RESPIRATORY SYNCYTIAL VIR NAA NEGATIVE (NEGATIVE)
--- NOTE | 2022-12-09 22:25 | NUR ---
[facility] BROUGHT TO FLOOR BY MOLD FILLER. pt SCOOTED SELF TO BED, ON RA. RR EVEN AND UNLABORED, NO DISTRESS NOTED. IV SITE WNL, IV VANCO INFUSING DIRECTED. VSS, TELE IN PLACE PER MD ORDERS. pt ORIENTED TO ROOM AND UPDATED ON POC. CALL LIGHT IN REACH.
[2022-12-09 22:26] VITALS: BP 128/60
--- NOTE | 2022-12-10 00:53 | NUR ---
CCU CALLED, TELE LEAD PLACED BACK INTO PLACEMENT. pt AWOKE EASILY TO VOICE, IV FLUIDS INFUSING WNL. ptHOME GLUCOMETER SHOWS BS RESULT IN THE 260'S X2. pt DENEIS NEEDS OR CONCERNS, CALL LIGHT IN REACH.
--- NOTE | 2022-12-10 00:55 | NUR ---
PATIENT TRANSFERRED FROM ED VIA GURNEY AND SETTLED INTO BED AND ORIENTED TO ROOM. REPORT PROVIDED BY ED RN @ 1999. VSS, PATIENT DENIES PAIN AT THIS TIME, RIGHT LOWER LEG RED,TENDER, WOUND TO TOES, AREA OF SKIN CRACKED, SECOND TOE WITH BLACKISH COLOR TO TIP. PHOTO'S TAKEN AND PLACED IN CHART. LEG ELEVATED ON PILLOWS, BLOOD SUGAR CHECK 310. MD NOTIFIED AND CLARIFIED IV FLUID ORDER AND DIET. PIVOT TO BSC WITH 1 PERSON ASSIST TO VOID. TELE INTACT AND CONTINOUS PULSE OXY ON. LIGHTS ARE OUT, CALL LIGHT IN REACH.
--- NOTE | 2022-12-10 01:30 | NUR ---
PATIENT DESATING TO 85% WHILE ASLEEP, PLACED ON 2 LITERS NASAL CANNULA AND SATS ARE UP TO 95%. NO RESP DISTRESS NOTED, REMAINS ON CONTINOUS PULSE OX.
--- NOTE | 2022-12-10 02:55 | NUR ---
pt VOIDED, UA COLLECTED PER MD ORDERS. pt RECEIVED X1 DOSE IV VANCO-SPOKE TO JOE IN LAB REGARDING ORDER pt WAS ORIGINALLY NOT ON ANY ABX. PER LAB, NO NEED TO ADJUST THE ORIGINAL ORDER. PRIMARY RN AWARE AND UPDATED.
[2022-12-10 03:21] VITALS: BP 109/52
[2022-12-10 03:26] LABS: BILIRUBIN, URINE NEGATIVE (negative); BLOOD/HGB, URINE MODERATE (Negative); KETONE, URINE NEGATIVE (Negative); LEUK ESTERASE, URINE NEGATIVE (negative); NITRITE, URINE NEGATIVE (negative)
--- NOTE | 2022-12-10 03:27 | NUR ---
PATIENT AWAKE WATCHING TV, VSS, BLOOD SUGAR CHECK 208, NO FURTHER CHANGES IN ASSESSMENT. CALL LIGHT WITHIN REACH, PATIENT WITHOUT COMPLAINT.
[2022-12-10 03:32] LABS: RED BLOOD CELLS, URINE 0-1 /hpf (0-5)
[2022-12-10 03:33] LABS: EPITHELIAL CELLS, URINE 0 /lpf (0-1+); REFLEX CULTURE, URINE No (No); WHITE BLOOD CELLS, URINE 0-1 /HPF (0-5)
--- NOTE | 2022-12-10 04:32 | NUR ---
PATIENT RESTING ON HER SIDE WITH EYES CLOSED, APPEARS COMFORTABLE, CALL LIGHT WITHIN REACH.
--- NOTE | 2022-12-10 05:35 | NUR ---
PATIENT ADMITTED DURING EVENING, DENIES PAIN, CMS INTAKE TO RIGHT LEG, SWOLLEN, RED BOUNDARIES MARKED WITH MARKER ON RIGHT LOWER LEG. SECOND TOE TIP DARK IN COLOR, LARGE TOE AMP HAS A LONG CRACKED AREA, WOUND CARE CONSULT PUT IN, TELE ON AND CONTINOUS PULSE OX WITH PATIENT DESATING WHILE A SLEEP TO 85% WAS THEN PLACED ON 2 LITERS nc AND SATS HAVE MAINTAINED >95%. BLOOD SUGAR CHECKS DONE AND LATEST READING 208. PATIENT SLEEPING NOW, CALL LIGHT WITHIN REACH.
[2022-12-10 05:44] LABS: BASOPHILS 0.5 % (0-2); EOSINOPHILS 0.8 % (0-6); HEMATOCRIT 33.9 % (35.0-50.0); HEMOGLOBIN 11.2 g/dL (12.0-18.0); LYMPHOCYTES 12.3 % (24-44); MCH 29.1 (27-36); MCHC 33.2 g/dl (30-36); MCV 87.7 fl (81-99); MONOCYTES 9.2 % (0-12); NEUTROPHILS 77.2 % (39-80); PLATELET COUNT 397 K/uL (140-440); RBC 3.87 M/ul (4.3-5.7)
[2022-12-10 06:03] LABS: ALBUMIN 2.3 g/dL (3.4-5.0); ALBUMIN/GLOBULIN RATIO 0.43 (1.1-2.4); ANION GAP 10.3 (7-21); BILIRUBIN, TOTAL 0.6 ng/dL (0.2-1.0); BUN/CREATININE RATIO 27.63 (6.0-28.6); CALCIUM 8.6 mg/dL (8.5-10.1); CREATININE, SERUM 1.99 mg/dL (0.55-1.02); POTASSIUM 3.3 mmol/L (3.5-5.1); PROTEIN, TOTAL 7.6 g/dL (6.4-8.2)
--- NOTE | 2022-12-10 08:00 | NUR ---
REPORT RECEIVED FROM NIGHT RN - PT SITTING UP IN BED FOR CBG CHECK. DENIES PAIN MEDS AT THIS TIME, RATES PAIN 3. RIGHT LOWER LEG RED AND HOT TO TOUCH, HAS NOT EXCEEDED PREVIOUS MARKER LINE FOR MARGIN. GREAT TOE SITE BLEEDING IN DEPENDENT POSISTION. TELE IN NSR.
--- NOTE | 2022-12-10 09:00 | NUR ---
RN IN ROOM TO ADMINISTER AM MEDICATIONS. ASSESSMENT COMPLETE.
[2022-12-10 10:05] VITALS: BP 119/83
--- NOTE | 2022-12-10 10:07 | NUR ---
RN IN ROOM TO ANSWER CALL LIGHT - REQUESTS PAIN MEDICATION FOR 7/10 PAIN IN RIGHT FOOT. PT ENCOURAGED TO ELEVATE FOOT IN BED. PRN TYLENOL ADMINISTERED. VS STABLE. CALL LIGHT IN REACH.
--- NOTE | 2022-12-10 11:35 | NUR ---
MED REC COMPLETE
--- NOTE | 2022-12-10 12:47 | NUR ---
PT ASSISTED TO CHAIR FROM BED BY FINANCIAL SALES ASSOCIATE, ATTENDS CHANGED PT WAS INC OF URINE. INSULIN COVERAGE ADMINISTERED. PT RATES PAIN IMPROVED AT 5/10. LUNCH TRAY IN ROOM. PT DENIES FURTHER NEEDS, CALL LIGHT IN REACH.
--- NOTE | 2022-12-10 14:31 | NUR ---
RN IN ROOM TO ASSIST PT TO BSC USING FWW PIVOT TRANSFER. ASSESSMENT COMPLETE - NO CHANGES. PT DENIES NEED FOR PAIN MEDICATION AT THIS TIME.
[2022-12-10 18:34] VITALS: BP 139/95
--- NOTE | 2022-12-10 19:50 | NUR ---
notified by ccu libby everett that pt had x2 runs of v-tach, 6-7 beats each. am potassium of 3.3, per emar-no potassium replacement given. also no mag level noted either, primary rn stefani updated and to assess pt and discuss with dr hutton. pt up to bsc to void, voided 700mls and back to bed. primary rn in room and harness mender scott also in room to complete wound consult. call light in reach.
[2022-12-10 19:53] VITALS: BP 141/52
--- NOTE | 2022-12-10 20:13 | NUR ---
PATIENT REQUESTED AND GIVEN PAIN MEDICATION FOR DISCOMFORT IN RIGHT FOOT. CALLED BY TELE-RN PATIENT HAD 2 6-7BEAT RUN OF VT. PATIENT DENIES CP OR SOB, MD TINO NOTIFIED AND ORDER FOR MAG LEVEL GIVEN AND DOSE OF 40MEQ POTASSIUM X1 GIVEN. WOUND CARE NURSE IN ROOM NOW ASSESSING RIGHT FOOT WOUND. PATIENT WAS ASSISTED UP TO BSC WITH 1 PERSON ASSIST AND FWW.
--- NOTE | 2022-12-10 20:30 | NUR ---
WOUND CONSULT COMPLETED. PT RESTING IN BED FOR CONSULT. PREVIOUS DRESSING REMOVED, MODERATE ABOUT OF PURULENT SANGUINOUS DRAINAGE, MILDLY MALODOROUS. RIGHT GREAT TOE AMPUTATION SITE WITH OPEN ULCER 1 X 3.5 X 0.3 CM, WOUND EDGES MACERATED, ERRYTHEMA PRESENT TO DORSAL FOOT. BOGGINESS TO MEDIAL MID FOOT/ARCH. RIGHT SECOND TOE WITH DRY CRUSTED ULCER 2.5 X 2 CM, NO DRAINAGE NOTED, BLACK DISCOLORATION ALONG TOE. PT STATES THERE WAS PREVIOUS PLAN TO HAVE SECOND TOE AMPUTATED. WOUND AND FOOT CLEANSED WITH CHLORHEXIDINE SOAP, FOOT DRIED WITH ATTENTION TO AREA BETWEEN TOES. PERIWOUND SKIN SPRAYED WITH SKIN PROTECTANT. IODOSORB APPLIED TO OPEN ULCER, COVERED WITH ADAPTACI NON ADHERENT PAD, SECURED WITH GAUZE ROLL AND CANDELARIA WRAP. DISCUSSED RECOMMENDATIONS WITH DR. HUBER, VERBALIZED AGREEMENT AND ORDER PLACED.
--- NOTE | 2022-12-10 23:12 | NUR ---
PATIENT CALLED AND ASSISTED UP TO BSC WITH USE OF FWW AND 1 PERSON ASSIST. HAD LARGE BM, IS NOW BACK IN BED, 2 LITERS OXYGEN APPLIED FOR BEDTIME PATIENT IS ON CONTINOUS PULSE OX AND DESATS TO 85% WHILE A SLEEP. LIGHTS ARE OUT AND CALL LIGHT WITHIN REACH.
--- NOTE | 2022-12-10 23:17 | NUR ---
BLOOD CULTURE RESULTS BACK - GRAM POSITIVE COCCI. NOTIFIED, NO NEW ORDERS RECIEVED.
[2022-12-11] VITALS (7 sets, daily range): BP systolic 116–140; BP diastolic 43–69
--- NOTE | 2022-12-11 00:57 | NUR ---
PATIENT CALLED, HAD AN ACCIDENT OF LARGE AMOUNT OF INCOONT. URINE, ASSISTED WITH PRICARE AND CHANGE OF PAD. IS NOW BACK TO BED TRYING TO GO BACK TO SLEEP, NO COMPLIANTS, ASSESSMENT WITHOUT CHANGE, CALL LIGHT WITHIN REACH.
--- NOTE | 2022-12-11 03:20 | NUR ---
PATIENT AWAKE, ASSISTED UP TO BSC, MINIMAL DISCOMFORT, CMS REMAINS INTACT, VSS, RIGHT LOWER LEG DRESSING INTACT,DRY AND CLEAN. RETURNED TO BED, LIGHTS OUT, CALL LIGHT WITHIN REACH.
--- NOTE | 2022-12-11 05:19 | NUR ---
PATIENT A WAKE AND ASSISTED TO BS, VSS, MINIMAL DISCOMFORT, CMS TO RIGHT LOWER LEG INTACT, DRSG INTACT,CLEAN AND DRY. WOUND CARE NURSE IN LAST EVENING - DAILY WOUND CARE INSTRUCTIONS DOCUMENTED. MEDICATED X1 WITH TYLENOL FOR DISCOMFORT, ASSISTED UP MULTIPLE TIMES IN THE SHIFT TO BS TO VOID, HAD ONE EPISODE OF URINARY INCONT, ON 2 LITERS NC DURING THE NIGHT FOR JOSE LUIS. OXYGEN SATS MAINTAINED >95%. PATIENT ON TELE, HAD 2 6-7 BEAT RUNS OF VT, PATIENT ASYMPTOMATIC TO EPISODE, NOTIFIED AND MG LEVEL DRAWN AND WNL. 40MEQ POTASSIUM GIVEN. NO FURTHER EPISODES DURING THE NIGHT. BACK IN BED NOW WITH LIGHTS OUT AND CALL LIGHT WITHIN REACH.
[2022-12-11 05:26] LABS: BASOPHILS 0.3 % (0-2); EOSINOPHILS 1.5 % (0-6); HEMATOCRIT 31.8 % (35.0-50.0); HEMOGLOBIN 10.4 g/dL (12.0-18.0); LYMPHOCYTES 11.7 % (24-44); MCH 28.7 (27-36); MCHC 32.8 g/dl (30-36); MCV 87.5 fl (81-99); MONOCYTES 7.9 % (0-12); NEUTROPHILS 78.6 % (39-80); PLATELET COUNT 415 K/uL (140-440); RBC 3.63 M/ul (4.3-5.7); RDW 15.9 (10.5-15.0)
[2022-12-11 05:36] LABS: ANION GAP 10.2 (7-21); BUN/CREATININE RATIO 34.86 (6.0-28.6); CALCIUM 8.7 mg/dL (8.5-10.1); CREATININE, SERUM 1.52 mg/dL (0.55-1.02); POTASSIUM 3.2 mmol/L (3.5-5.1)
--- NOTE | 2022-12-11 07:51 | NUR ---
REPORT RECEIVED FROM HARDIK HATFIELD. PT RESTING IN BED, PT REPORTS SHE IS "WORRIED THIS TIME" ABOUT HER FOOT. PT REPORTS 5/10 PAIN IN RIGHT FOOT AT THIS TIME AND STATES IT IS TOLERABLE AT THIS TIME. IV PUMP ALARMING, DISTAL OCCULSION. IV ASSESSED, WNL. NO S/S OF PHLEBITIS PRESENT. IV FLUID INFUSION RESTARTED. PT DENIES ADDITIONAL REQUESTS OR COMPLAINTS AT THIS TIME. CALL LIGHT WITHIN REACH. BED RAILS UP.
--- NOTE | 2022-12-11 09:08 | NUR ---
MORNING ASSESSMENT AND MEDICAITON DUE. PT RESTING IN BED. PT REPORTS 4/10 PAIN IN RIGHT FOOT THAT IS WELL CONTROLLED. PT DENIES NEED FOR ADDITONAL PAIN MEDICAITON. DRESSING CHANGE DONE PER MD ORDER. PT TOELRATED WELL. WOUND UNCHANGED, YELLOW DRAINAGE SEEN ON GAUZE WITH DRESSING REMOVAL. PT ALERT AND ORIENTED TO ALL. HEART TONES REGULAR. LUNG SOUNDS CLEAR. TELEMENTRY MONITORING IN PLACE WITH NORMAL SINUS RYTHEM SEEN ON MONITOR. RATE IN CELI 80-90'S. PT TOELRATING ROOM AIR. LUNG SOUNDS CLEAR. RESPIRATIONS EVEN AND UNLABORED. ABDOMEN SOFT AND NON TEDNER. REDNESS TO RLE UNCHANGED. PT REPORTS BASELINE. LEFT STUMP WNL. NO REDNESS OR SWELLING. NO REDNESS PRESENT UNDER PANNUS. NEW IV STARETD TO RIGHT FOR ARM, BLOOD RETURN SEEN. IV TO LEFT WRIST DC'D PER PT REQUEST. NO ADDITIONAL REQUESTS OR COMPLAINTS AT THIS TIME. CALL LIGHT WITHIN REACH. BED RAILS UP. PT EATING BREAKFAST AND TALKIGN WITH FAMILY ON THE PHONE.
--- NOTE | 2022-12-11 10:48 | NUR ---
THIS RN TO ROOM TO CHECK ON PT. PT WORKING WITH PHYSICAL THERAPY. PT UP TO CHAIR AND PIVOTING TO COMODE WITH PHYSICAL THERAPIST. PT TRANSFERS WELL. PT REPORTS PAIN REMAINS WELL CONTROLLED AT 5/10. NO ADDITIONAL REQUESTS OR COMPLAINTS. CALL LIGHT WITHIN REACH. PHYSICAL THERAPIST REMAINS AT BEDSIDE.
--- NOTE | 2022-12-11 11:51 | NUR ---
ACU CHECK 222. CALL LIGHT WITHIN REACH.
--- NOTE | 2022-12-11 12:25 | NUR ---
HOURLY ROUNDING, PT HAS LUNCH. MEDICATIONS GIVEN PER ORDER. PT TOLERATED WELL. NO FURTHER NEEDS STATED AT THIS TIME. CALL LIGHT WITHIN REACH.
--- NOTE | 2022-12-11 13:32 | NUR ---
CARDIAC ASSESSMENT COMPLETED. NSR AND HR WNL AT 89BPM PER TELEMETRY. PT REPORTS NO CHEST PAIN. PT REPORTS MILDY INCREASED SOB COMPAIRED TO YESTERDAY. NO CHANGE IN LUNG SOUNDS NOTED, HOWEVER PT TOLERATING FLUIDS PO WELL AND CONTINUES TO HAVE LR @125ML/HR IV. NOTIFIED OF THIS, ORDERED TO STOP IV LR. IVF STOPPED, R FOREARM IV SALINE LOCKED, IV CAPPED WITH GREEN ALCOHOL CAP. PT EDUCATED ON REASON FOR STOPPING FLUIDS AND VERBALIZES UNDERSTANDING.
--- NOTE | 2022-12-11 13:59 | NUR ---
AFTERNOON ASSESSMENT AND MEDICATION DUE. SEE MAR FOR MEDICATION GIVEN. PT REPORTS / PAIN IN RLE THAT IS "CRUSHING" AT TIMES. ACCORDING TO PT THIS "CRUSHING" PAIN "COMES AND GOES." NEUROPATHY PER BASELINE. REDNESS TO RLE REMAINS UNCHANGED AND WITHIN MARKED LINE. DRESSING TO RIGHT FOOT C/D/I. LUNG SOUNDS CLEAR. MRI FORM COMPLETED. SWELLING PRESENT TO RIGHT HAND AND ARM, PT REPORTS THIS IS FROM AN INFILATRATED IV SITE. HEAT PACK PROVIDED WHICH PT STATES HELPS. NO ADDITONAL NEEDS AT THIS TIME. CALL GREG ARGUETA.
--- NOTE | 2022-12-11 14:53 | NUR ---
HOURLY ROUNDING. PT UP TO CHAIR. PT STATED NEED TO USE BSC, RN ASSISTED UP TO BSC AND BACK TO CHAIR. PT STATES PAIN IS AT A 5 AND THAT IT IS "AT A MANAGEABLE LEVEL". NO FURTHER NEEDS STATED AT THIS TIME, CALL LIGHT WITHIN REACH.
--- NOTE | 2022-12-11 16:08 | NUR ---
HOURLY ROUNDING. PT UP TO CHAIR, SAYS SHE HAS BEEN REPOSITIONING IN CHAIR INDEPENDENTLY TO HELP WITH FOOT PAIN. RIGHT FOOT PAIN IS STILL AT A 5/10 WHICH PT STATES IS "MANAGEABLE". NEW HEAT PACK PROVIDED FOR SWELLING IN RIGHT HAND D/T IV INFILTRATION THAT HAPPENED YESTERDAY PER PT. PT REPORTS THE HEAT PACK IS HELPING THE SWELLING IN RIGHT HAND GO DOWN AND "FEELS A LITTLE BETTER". NO FURTHER NEEDS STATED AT THIS TIME. CALL LIGHT WITHIN REACH.
--- NOTE | 2022-12-11 16:53 | NUR ---
PT HERE FOR SEPSIS AND OSTOMYLITIS OF RIGHT FOOT/TOES. PT UP WITH STAND BY ASSIST AND FWW PIVOT TO COMODE/CHAIR/BED. PT TOELRATING 60G CARB DIET WITH GOOD APPITITE, SUGAR FREE SNACKS AND DRINKS. BLOOD SUGAR CHECKS AND SLIDING SCALE INSLUIN GIVEN. TELEMETRY MONITORING IN PLACE WITH NORMAL SINUS RYTHM SEEN ON MONITOR THROUGHOUT SHIFT. PO POTASSIUM SUPPLIMENTATION GIVEN. PT REPORTS LLE PAIN FROM 4-09/20 THIS SHIFT, PRN PAIN MEDICATION GIVEN WITH GOOD RESULTS. PT TOLERATING ROOM AIR. PT AFEBRIAL SO FAR THIS SHIFT. DRESSING CHANGED TO RLE PER MD ORDERS, PT TOLEARTED WELL. YELLOW DRAINAGE SEEN ON OLD DRESSING. PT REPORTS INCREASED SHORTNESS OF BREATH THIS SHIFT. IV SALINE LOCKED. PT ANTICIPATING PODIETRY CONSULTATION. PT VOIDING QUANTITY SUFFICIENT. PT USES CALL LIGHT AND MAKES NEEDS KNOWN.
--- NOTE | 2022-12-11 17:05 | NUR ---
THIS RN CALLED TO BEDSIDE WITH THE REPORT OF A FALL. THIS RN TO ROOM. ANU RAVI REPORTS PT WAS UP TO COMODE AND TRANSFERING BACK TO CHAIR WITH STAND BY ASSIST WHEN SHE "SLIPED OR GOT WEAK" ( STATED BY PT) AND "SLOWLY" SLID TO THE GROUND. PT STATES SHE DID NOT HIT HER HEAD OR ANY OTHER BODY PART SHE "JUST MIRYAM SLOWLY SLID DOWN." NOTED THAT PT WAS NOT WEARING NON SKID SOCKS DURING TRANSFER. EDUCATION DONE AND PT ADVISED THAT THESE SOCKS WILL BE NECESSARY WITH FUTURE TRANSFERES. NEURO ASSESSMENT UNCHANGED WITH STRONG EQUAL BILAERAL PORTFOLIO ACCOUNTANT STRENGTH, PT REMAINS ALERT AND OREINTED. PT DENIES ANY NEW PAIN OR SORENESS. 4 PERSON ASSIST BACK UP TO CHAIR. PT ABLE TO ASSIST WITH ARMS AND BOOST HER BODY. PT STATES "ONLY MY PRIDE IS HURT." FULL ASSESSMENT DONE. CCU CALLED AND STATES THERE WERE NO CHANGES IN TELEMETRY MONITORING OTHER THAN ARTIFACE PRIOR TO FALL. HEART TONES REMAIL REGULAR. LUNG SOUNDS REMAIN CLEAR. ABDOMEN SOFT AND NON TEDNER. NO NEW REDNESS OR BURISES SEEN OVER SKIN. PT DENIES FLANK PAIN. PT REPORTS PAIN TO RIGHT FOOT REMAINS AT 4/10 AND "IS JUST TINGLING A LITTLE." DRESSING TO RIGHT LOWER EXTREMITY REMAINS C/D/I WITH NO NEW DRAINAGE SEEN. VITAL SIGNS REMAIN STABLE BUT FOR SLIGHTLY ELEVATED TEMPERATURE. I.S. PROVIDED. PT DEMONSRATES USE REACHING 1500X 5. NO CHANGE IN TEMPERATURE AFTER I.S. USE. DR LIRA CALLED AND UPDATED REGARDING FALL AND ASSESSMENT. NO NEW ORDERS AT THIS TIME. POST FALL HUDDLE PERFORMED WITH CHARGE NURSE AT BEDSIDE. PT EATING DINNER. MEDICATION GIVEN. NO ADDITIONAL REQUESTS OR COMPLAINTS. CALL LIGHT WITHIN REACH. BED RAILS UP.
--- NOTE | 2022-12-11 18:18 | NUR ---
HOURLY ROUNDING. PT ASSISTED FROM CHAIR BACK TO BED, PROVIDED WARM BLANKETS. PT REPORTS THAT PAIN IS BEING MANAGED. NO FURTHER NEEDS STATED AT THIS TIME. PT CONTINUES TO BE ON TELE. CALL LIGHT WITHIN REACH, BED RAILS UP.
--- NOTE | 2022-12-11 19:15 | NUR ---
shift report received from [facility] r[facility] kavon and teri, pt awake and resting in bed. on ra, rr even and unlabored, no distress noted. iv site wnl, saline locked. pt in good spirits, fresh ice water provided. dressing to rle c/d/i and elevated in bed with pillow. call light in reach.
--- NOTE | 2022-12-11 21:37 | NUR ---
assessment complete, scheduled meds given-see emar along with prn tylenol for reported 7.5-8/10 pain. dressing to rle remains c/d/i, elevated in bed with pillow. iv site wnl, iv abx given as ordered. now saline locked. no additional needs or concerns verbalized, call light in reach.
--- NOTE | 2022-12-11 23:10 | NUR ---
rounded on pt, pt resting quietly in bed, on 2lnc. rr even and unlabored, no distress noted. call light in reach, pt deneis needs or concerns when asked.
[2022-12-12] VITALS (7 sets, daily range): BP systolic 106–152; BP diastolic 50–91
--- NOTE | 2022-12-12 00:10 | NUR ---
ROUNDED ON pt, pt AWAKE ADN RESTING IN BED QUIETLY. NO NEEDS OR CONCERNS VERBALZIED WHEN ASKED, 2LNC IN PLACE D.T SLEEP APNEA AT NIGHT. CALL LIGHT REMASIN IN REACH. IV SITE WNL, REMAISN SALINE LOCKED.
--- NOTE | 2022-12-12 00:52 | NUR ---
REPORT GIVEN TO HARDIK SAUNDERS. CHIP DYE TO TAKE OVER pt CARE AT THIS TIME.
--- NOTE | 2022-12-12 01:22 | NUR ---
RECEIVED REPORT. PATIENT IS RESTING IN BED WITH EYES CLOSED, RR 17. CALL LIGHT IN REACH.
--- NOTE | 2022-12-12 02:29 | NUR ---
PATIENTS VITALS TAKEN AND RECORDED. PATIENT ASSISTED TO THE BSC A 1PA W/FWW. PATIENT ABLE TO VOID. PATIENT IS BACK IN BED RESTING. PATIENTS INTAKE AND OUTPUT RECORDED. PATIENT DENIES ANY FURTHER NEEDS. CALL LIGHT IN REACH.
--- NOTE | 2022-12-12 04:10 | NUR ---
PATIENT IS RESTING IN BED WITH EYES CLOSED, RR 17. TELE #1, HR 87. CALL LIGHT IN REACH.
--- NOTE | 2022-12-12 04:29 | NUR ---
PATIENT ASSISTED TO THE BSC A 1PA W/FWW. PATIENT INCONT OF URINE. PATIENTS BEDDING CHANGED AND PATIENT ASSISTED BACK TO BED. PATIENT RATES PAIN AT A 5/10, PRN MEDS GIVEN PER ORDER. PATIENTS VITALS TAKEN AND RECORDED. INTAKE AND OUTPUT RECORDED. PATIENTS IV FLUSHED AND SL PER ORDER. PATIENT PROVIDED FRESH ICE WATER. PATIENT DENIES ANY FURTHER NEEDS. CALL LIGHT IN REACH.
[2022-12-12 05:42] LABS: BASOPHILS 0.5 % (0-2); EOSINOPHILS 1.5 % (0-6); HEMATOCRIT 31.8 % (35.0-50.0); HEMOGLOBIN 10.3 g/dL (12.0-18.0); LYMPHOCYTES 11.1 % (24-44); MCH 28.9 (27-36); MCHC 32.4 g/dl (30-36); MCV 89.1 fl (81-99); MONOCYTES 7.8 % (0-12); NEUTROPHILS 79.1 % (39-80); PLATELET COUNT 436 K/uL (140-440); RBC 3.56 M/ul (4.3-5.7); RDW 15.7 (10.5-15.0)
[2022-12-12 05:54] LABS: ANION GAP 10.2 (7-21); BUN/CREATININE RATIO 33.54 (6.0-28.6); CALCIUM 8.8 mg/dL (8.5-10.1); CREATININE, SERUM 1.55 mg/dL (0.55-1.02); POTASSIUM 3.2 mmol/L (3.5-5.1)
--- NOTE | 2022-12-12 06:20 | NUR ---
PATIENT IS RESTING IN BED WITH EYES CLSOED, RR 17. PATIENTS HR ON TELE IS 79. CALL LIGHT AND BELINGS ARE WITHIN REACH.
--- NOTE | 2022-12-12 07:10 | NUR ---
REPORT RECEIVED FROM HARDIK MUÑOZ. PT RESTING ON LEFT SIDE IN BED WITH EYES CLOSED. RESPIRATIONS EVEN AND UNLABORED. 2L O2 BY NC REMAINS IN PLACE. BED RAILS UP. CALL LIGHT WIHTIN REACH. PT ALLOWED TO REST.
--- NOTE | 2022-12-12 07:32 | NUR ---
HOURLY ROUNDING. PT REPORTED NEED TO USE BSC, BUT HAD ICONTINENCE IN BED. CHANGED ATTENDS AND CHUX IN BED, JEREMY CARE DONE. PT UP TO CHAIR, REQUESTED A CUP OF COFFEE, PROVIDED. PT IS CONCERNED ABOUT INCREASING INCONTINENCE OVER NIGHT, DENIES PAIN/BURNING WITH URINATION. PT REPORTS PAIN 6/10 AND STATES SHE MIGHT NEED SOMETHING MORE FOR PAIN MEDICINE. MESSAGE SENT TO MD. CALL LIGHT WITHIN REACH. VSS. NO ADDITIONAL REQUESTS OR COMPLAINTS.
--- NOTE | 2022-12-12 09:40 | NUR ---
MORNING ASSESSMENT AND MEDICATION DUE. PT UP TO CHAIR. PT REPORTS NEED TO USE RESTROOM BUT REPROTS SHE FEELS A LITTLE DIZZY. PT DENIES CHEST PAIN. VITAL SIGNS STABLE. NOTED THAT PT HAS YET TO RECEIVE MORNING INUSLIN AND HAS FINISHED BREAKFAST, SUSPECT THAT DIZZINESS IS REALTED TO NEED TO HAVE BOWEL MOVEMENT AND TO ELEVATED BLOOD SUGAR. NEW SLIDING SCALE INSULIN NOTED. MEDICATION GIVEN. PT REMAINS ALERT AND ORIENTED TO ALL. NEUROPATHY PER BASELINE. HEART TONES REGULAR WITH OCCATIONAL MISSED BEAT. NORMAL SINUS RYTHEM SEEN ON MINOTOR. LUNG SOUNDS CLEAR ALTHOUGH DEMINISHED IN BASES. PT TOLERATING ROOM AIR. 1 PERSON ASSIST WITH FWW UP TO COMODE. PT VOIDS AND HAS LARGE FORMED BOWEL MOVEMENT. PT ASSITED WITH JEREMY CARE. STAND BY ASSIST WITH FWW BACK TO CHAIR. DRESSING TO RLE CHANGED PER MD ORDER. PHOTOGRAPHS TAKEN (SEE PAPER CHART). PT TOELRATED DRESSING CHANGE WELL ALTHOUGH EXPRESSES FEAR OF LOOSING HER FOOT. REDNESS TO RLE REMAINS WITHIN OUTLINE AREA. YELLOW DRAINAGE SEEN FROM RIGHT FOOT WOUND WITH DRESSING REMOVAL. NO ADDITIONAL NEEDS AT THIS TIME. CALL LIGHT WITHIN REACH.
--- NOTE | 2022-12-12 10:10 | NUR ---
VASCULAR ASSESSMENT. PT REPORTS VSION IS "A LITTLE BLURRY", INSULIN GIVEN FOR BREAKFAST PER NEW SLIDING SCALE. STRONG PULSES IN BILAT UPPER EXTREMITIES, RLE PULSE FAINT. EDEMA CONTINUES IN RLE +1. NUMBNESS TO TOES WITH SENSATION IMPROVING TO MID FOOT AND RETURNING FULLY ABOVE ANKLE, PER BASELINE. BLANCHABLE REDNESS TO RLE IS WITHIN THE MARKED AREA. RIGHT HAND EDEMA IS IMPROVING. CAP REFILL <3 SECONDS IN BILAT UPPER EXTREMITIES, >3 IN RLE TOES. CARDIAC ASSESSMENT. HEART TONES REGULAR WITH HR 94 PER TELE. PT REPORTS NO CHEST PAIN, NO SOB. NSR WITH OCCASIONAL "SKIPPED BEAT" PER TELE AND HEART TONES. PT UP TO CHAIR, CALL LIGHT WITHIN REACH. NO FURTHER NEEDS STATED.
--- NOTE | 2022-12-12 11:22 | NUR ---
HOURLY ROUNDING. PT STATED SHE NEEDED TO USE THE BSC. URINE SAMPLE COLLECTED IN HAT, NO CLEANING PRIOR TO VOID PT WAS IN A HURRY TO VOID. JERMEY CARE DONE AFTER VOID. URINE CLEAR, YELLOW. PT REPORTS PAIN 5/10 AND STATES SHE DOES NOT NEED PAIN MEDICATION AT THIS TIME. PT BACK TO CHAIR AFTER BSC USE. BLOOD SUGAR TAKEN FOR BEFORE LUNCH. NO FURTHER NEEDS STATED AT THIS TIME. CALL LIGHT WITHIN REACH.
[2022-12-12 11:37] LABS: BILIRUBIN, URINE NEGATIVE (negative); BLOOD/HGB, URINE LARGE (Negative); KETONE, URINE NEGATIVE (Negative); LEUK ESTERASE, URINE NEGATIVE (negative); NITRITE, URINE NEGATIVE (negative); PH, URINE 5.5 (5-7)
[2022-12-12 11:46] LABS: BACTERIA, URINE RARE /hpf (negative); CASTS, URINE NONE SEEN \\lpf; CRYSTALS, URINE NONE SEEN (0-1+); EPITHELIAL CELLS, URINE SQUAMOUS 2+ /lpf (0-1+); REFLEX CULTURE, URINE No (No)
[2022-12-12 11:47] LABS: COLLECTION TYPE, URINE CLEAN CATCH
--- NOTE | 2022-12-12 12:07 | NUR ---
NIO ORDER FOR MICONAZOLE D/T YEAST FOUND IN URINE SPECIMEN. PT REPORTS FREQ YEAST INFECTIONS IN JEREMY AREA AND PANIS. ORDERED PROFILACTICALLY.
--- NOTE | 2022-12-12 12:47 | NUR ---
HOURLY ROUNDING. PT UP TO CHAIR, STATES THAT SHE HAD INCONTINENCE, BRIEFS CHANGED. LUNCH ARRIVED, PT UP TO CHAIR TO EAT, INSULIN GIVEN PER SS ORDER. DR. LIRA AT BEDSIDE FOR ROUNDS, REPEAT UA ORDERS GIVEN, UPDATED ON PT ASSESSMENT, STATED NEW ORDERS FOR PAIN MEDICATION, AWAITING ORDERS. STATES OKAY TO CONSULT RT REGARDING NIGHTTIME O2 USE AND QUALIFICATIONS FOR HOME USE. PT STATES NO FURTHER NEEDS AT THIS TIME, CALL LIGHT WITHIN REACH.
--- NOTE | 2022-12-12 13:32 | NUR ---
AFTERNOON ASSESSMENT AND MEDICATION DUE. PT REMAINS UP TO CHAIR. PT REPORTS SHE WAS JUST UP TO THE BEDSIDE COMODE TO VOID AGAIN WITH ONE PERSON ASSIST FROM HARDIK STERN. PT REPORTS JEREMY CARE WAS DONE PRIOR TO URINE COLLECTION. MICONAZOLE POWDER APPLIED. PT ERPORTS 6/10 PAIN IN RIGHT FOOT AT THIS TIME. SEE MAR FOR MEDICATION GIVEN. +1 PITTING EDEMA TO RLE, SWELLING TO RIGHT HAND CONTINUES TO IMPROVE. CMS UNCHANGED TO RLE WITH SENSATION NUMB TO RIGHT TOES AND RETURNING AFTER ANKLE. REDNESS TO RIGHT LOWER EXTREMITY REMAINS WITHIN MARKED LINES, MILDLY WARM TO TOUCH. DRESSING C/D/I WITH NO DRAINAGE PRESENT. HEAR TONES REGULAR BUT DISTANT. LUNG SOUNDS CLEAR. PT CONTINUES TO REPORT UGENCY AND INCONTANCE WITH VOIDS. PT ALSO REPORTS UNQUENCHABLE THIRST, PT ATTRIBUTES THIS TO HER DIABETIES. VITAL SIGNS STABLE. MEDICATION GIVEN. PT ALERT AND ORIENTED TO ALL. NO ADDITONAL REQUSTS OR COMPLAINTS. CALL LIGHT WITHIN REACH.
--- NOTE | 2022-12-12 13:46 | NUR ---
CARDIAC ASSESSMENT: HEART TONES REGULAR BUT DISTANT, NSR PER TELE, HR 89. PT DENIES DIZZINESS. VASCULAR ASSESSMENT: EDEMA IN RLE SLIGHTLY INCREASED, BUT STILL +1, INSCREASED SENSATION IN FOOT TO MIDFOOT ON BOTH TOP AND BOTTOM. CAP REFILL >3 SECONDS IN RLE. CAP REFILL BRISK <3 SECONDS IN BILAT UPPER EXTREMITIES. REDNESS IN RLE STILL WITHIN DRAWN LINE. STRONG RADIAL PULSES, FAINT PEDAL PULSE IN RLE. PT STATES 6/10 PAIN, PAIN MEDICATION GIVEN PER ORDER. PT STATES NO FURTHER NEEDS, CALL LIGHT WITHIN REACH.
--- NOTE | 2022-12-12 14:58 | NUR ---
HOURLY ROUNDING. PT UP TO CHAIR, REPORTS NEED TO USE THE BSC, GOT PT UP TO BSC. PT BACK TO CHAIR. PROVIDED ORAL CARE, AM CARE, SKIN CARE. PT REPORTS THAT PAIN HAS DECREASED TO 3/10 SINCE HAVING THE PAIN MEDICATION. NO FURTHER REQUESTS OR CONCERNS STATED AT THIS TIME. CALLL LIGHT WITHIN REACH.
--- NOTE | 2022-12-12 16:16 | NUR ---
HOURLY ROUNDING. PT STATES SHE LIKES THE NEW PAIN MEDICATION BETTER AND THAT IT IS MAKING HER, "VERY COMFORTABLE". PT STATES PAIN IS CURRENTLY 3/10. PT STATES SHE IS VERY WARM, TEMPERATURE TAKEN, NO FEVER. PT STATES NO FURTHER NEEDS. CALL LIGHT WITHIN REACH. TELE ON HR 89, OCCASIONAL PVCS.
--- NOTE | 2022-12-12 16:45 | NUR ---
PT HERE FOR SEPSIS AND OSTOMYLITIS OF RIGHT FOOT/TOES. PT UP WITH STAND BY ASSIST AND FWW PIVOT TO COMODE/CHAIR/BED. PT TOELRATING 60G CARB DIET WITH GOOD APPITITE, SUGAR FREE SNACKS AND DRINKS. BLOOD SUGAR CHECKS AND SLIDING SCALE INSLUIN GIVEN, WITH NEW HIGHER SCALE APPLIED. TELEMETRY MONITORING IN PLACE WITH NORMAL SINUS RYTHM SEEN ON MONITOR THROUGHOUT SHIFT. PO POTASSIUM SUPPLIMENTATION GIVEN. PT REPORTS LLE PAIN FROM 3-09/20 THIS SHIFT. NEW PRN PAIN MEDICATION ORDERS PLACED AND GIVEN WITH GOOD RESULTS. PT TOLERATING ROOM AIR. PT AFEBRIAL SO FAR THIS SHIFT. DRESSING CHANGED TO RLE PER MD ORDERS, PT TOLEARTED WELL. YELLOW DRAINAGE SEEN ON OLD DRESSING. PT HAVING ISSUES WITH INCONTANCE, URGENCY AND FREQUENCY THIS SHIFT. UA ORDERS PLACED/SENT. PT ALERT AND OREINTED THROUGHOUT SHIFT. PT ANTICIPATING PODIETRY CONSULTATION. PT VOIDING QUANTITY SUFFICIENT. PT USES CALL LIGHT AND MAKES NEEDS KNOWN.
[2022-12-12 16:55] LABS: BILIRUBIN, URINE NEGATIVE (negative); BLOOD/HGB, URINE LARGE (Negative); KETONE, URINE NEGATIVE (Negative); LEUK ESTERASE, URINE NEGATIVE (negative); NITRITE, URINE NEGATIVE (negative)
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
[2022-12-12 17:29] LABS: CRYSTALS, URINE NONE SEEN (0-1+); EPITHELIAL CELLS, URINE SQUAMOUS 1+ /lpf (0-1+)
[2022-12-12 17:30] LABS: BACTERIA, URINE NONE SEEN /hpf (negative); CASTS, URINE NONE SEEN \\lpf; COLLECTION TYPE, URINE CLEAN CATCH; REFLEX CULTURE, URINE No (No)
--- NOTE | 2022-12-12 18:23 | NUR ---
HOURLY ROUNDING. PT STATES PAIN IS NOW AT A 4/10, BUT "NOT BAD". PT REQUESTED TO GET UP TO BSC, ASSISTED TO BSC. PT ASSISTED TO BED. NEW ABX STARTED, SEE EMAR. PT ON TELE #1 STILL, HR 96 PER TELE. PT STATES NO FURTHER NEEDS AT THIS TIME, CALL LIGHT WITHIN REACH, BED RAILS UP.
--- NOTE | 2022-12-12 19:35 | NUR ---
RECEIVED REPORT FROM DAY SHIFT RN. PATIENT IS RESTING IN BED WATCHING TV. PATIENT DENIES ANY NEEDS. CALL LIGHT IN REACH,.
--- NOTE | 2022-12-12 20:10 | NUR ---
PATIENT ASSISTED TO THE BSC A 1PA W/FWW. PATIENT ABLE TO VOID AND IS BACK IN BED RESTING. VITALS TAKEN AND RECORDED. INTAKE AND OUPUT RECORDED. PATIENTS PM MEDS GIVEN PER ORDER. PATIENT RATES PAIN AT A 6/10, PRN MEDICATION GIVEN PER ORDER. PATIENTS IV NO LONGER PATENT. THIS RN ATTEMPTED TO START IV AND WAS UNSUCCESFUL. PAIRER IN TO START IV. PATIENT HAS NEW IV INLEFT HAND. PATIENTS IV ABX INFUSING PER ORDER. PATIENT ASSESMENT COMPLETED. RLE CONTINUES TO HAVE REDNSS NOTED. PATIENTS RIGHT FOOT HAS DRESSING THAT IS C/D/I. PATIENT PROVIDED WITH FRESH ICE WATER. PATIENTS CALL LIGHT AND BELONGINGS ARE WITHIN REACH.
--- NOTE | 2022-12-12 22:15 | NUR ---
PATIENT IS RESTING IN BED WATCHING TV. PATIENT REPORTS IMPROVEMENT IN PAIN AND DENIES THE NEED FOR ADDDITIONAL PAIN MEDICATION. PATIENT DENIES ANY FURTHER NEEDS. CALL LIGHT AND BELONGINGS ARE WITHIN REACH.
--- NOTE | 2022-12-13 00:32 | NUR ---
PATIENT IS RESTING IN BED WATCHING TV. PATIENT DENIES ANY NEEDS. CALL LIGHT IN REACH.
[2022-12-13 02:09] VITALS: BP 1116/50; BP 116/50
--- NOTE | 2022-12-13 02:47 | NUR ---
PATIENTS VITALS TAKEN AND RECORDED. INTAKE AND OUTPUT RECORDED. PATIENT IS RESTING IN BED ON RIGHT SIDE. IV ABX INFUSING PER ORDER. PATIENT DENIES ANY FURTHER NEEDS. CALL LIGHT IN REACH.
--- NOTE | 2022-12-13 04:16 | NUR ---
PATIENT ASSISTED TO THE BSC A 1PA W/FWW. PATIENT INCONT OF URINE. PATIENT IS BACK IN BED RESTING. PATIENTS IV ABX INFUSING PER ORDER. NO FURTHER NEEDS NOTED. CALL LIGHT IN REACH.
[2022-12-13 04:48] VITALS: BP 134/82
--- NOTE | 2022-12-13 05:04 | NUR ---
LAB IN ROOM. PATIENTS VITALS TAKEN AND RECORDED. INTAKE AND OUTPUT RECORDED. FRESH ICE WATER PROVIDED. PATIENT DENIES ANY NEEDS. CALL LIGHT AND BELONGSINGS ARE WITHIN REACH. PATIENTS IV ABX INFUSING PER ORDER.
[2022-12-13 06:18] LABS: BASOPHILS 0.5 % (0-2); EOSINOPHILS 1.5 % (0-6); HEMATOCRIT 32.1 % (35.0-50.0); HEMOGLOBIN 10.7 g/dL (12.0-18.0); LYMPHOCYTES 9.8 % (24-44); MCH 29.1 (27-36); MCHC 33.2 g/dl (30-36); MCV 87.7 fl (81-99); MONOCYTES 8.3 % (0-12); NEUTROPHILS 79.9 % (39-80); PLATELET COUNT 461 K/uL (140-440); RBC 3.67 M/ul (4.3-5.7); RDW 15.8 (10.5-15.0)
--- NOTE | 2022-12-13 06:27 | NUR ---
PATIENT INCONT URINE. PATIENT MOVE FROM BED TO CHAIR WITH HILARY STEADY PATIENT IS NOW RESTING IN RECLINER. NEW ATTEND IN PLACE. PATIENT RATES PAIN AT A 6/10 IN SHOULDERS AND RIGHT FOOT. PATIENT PROVIDED WITH FRESH ICE WATER AND COFFEE. PATIENTS VITALS TAKEN AND RECORDED. INTAKE AND OUTPUT RECORDED. PATIENT DENIES ANY FURTHER NEEDS. CALL LIGHT IN REACH.
[2022-12-13 06:29] LABS: ANION GAP 10.6 (7-21); CALCIUM 8.6 mg/dL (8.5-10.1); CREATININE, SERUM 1.7 mg/dL (0.55-1.02); POTASSIUM 3.6 mmol/L (3.5-5.1)
--- NOTE | 2022-12-13 06:48 | NUR ---
NEAR 0630 PT YELLED. HEARD AT THE NURSES STATION. INTO ROOM, PT HAD PULLED GOWN DOWN, BREATHING RAPID, SATS READING 83, O2 IN PLACE. HEART RATE 120'S. HAD SLID DOWN INTO BED, WITH ASSIST OF SECOND RN, PT REPOSITIONED, NOTED SATS IMPROVING TO HIGHER 80'S. PT ABLE TO SPEAK IN SHORT WORDS, NOT SENTENCES, SAID HE PANICKED, COULDN'T BREATH. RT NOTIFIED, ABLE TO EDUCATION PT TO TRY CPAP, WORK OF BREATHING INCREASED. PT AGREED HE WOULD TRY IT. RT PLACED CPAP. HEART RATE IN 100'S, SATS INPROVED TO 90'S. BED ALARM IN PLACE, INCONT CARE DONE. RT IN ROOM WHEN THIS RN LEFT ROOM.
--- NOTE | 2022-12-13 07:47 | NUR ---
recieved report from nightshift nurse. pt is alert and oriented. currently sitting up in her chair. requested coffee. no other cares needed or requested at this time. call light within reach
--- NOTE | 2022-12-13 08:37 | NUR ---
WHEN I WENT IN TO DO HER BLOOD SUGAR CHECK. PATIENT WAS ALREADY SITTING UP IN HER CHAIR. NOW EATING BREAKFAST.
[2022-12-13 09:35] VITALS: BP 149/71
--- NOTE | 2022-12-13 09:40 | NUR ---
ASSISTED PT TO BSC AND THEN TO WHEELCHAIR FOR MRI. PT TOLERATED OK BUT DID GET WEAK ON THE SECOND TRANSFER TO WHEELCHAIR. REMOVED TELE AND CHANGED GOWN.
--- NOTE | 2022-12-13 12:54 | NUR ---
CALLED DR. LIRA ABOUT DOING A PICC LINE AND THE PT'S KIDNEY DISEASE. DR. LIRA STATES THAT HE NEEDS TO DISCUSS WITH PODIATRY BEFORE HE KNOWS HOW LONG THIS PT IS GOING TO NEED IV ABX. AT THIS TIME THE PICC IS TO NOT BE PLACED UNTIL A PLAN IS MADE AND DR. LIRA STATES THE PICC IS NEEDED.
[2022-12-13 14:49] VITALS: BP 138/88
--- NOTE | 2022-12-13 15:14 | NUR ---
PT IS CURRENTLY IN THE BATHROOM WITH OCCUPATIONAL THERAPIST KAUSHAL AND ANISA PITT GETTING A SHOWER. THIS RN WRAPPED HER LEG DUE TO HER FOOT ISSUES AND HAND DUE TO HER IV. SHE IS CURRENTLY ON 2 LITERS WITH NASAL CANNULA WHILE SHOWERING BUT HAS BEEN 98-100 O2 STAT.
--- NOTE | 2022-12-13 18:11 | NUR ---
DR ANDINO CAME IN AND DID A DRESSING CHANGE AND ALSO TOLD PATIENT ABOUT HAVING A PROCEDURE DONE TOMORROW. I WAS THERE A WITNESS AND SIGNED THE CONSENT FORM. PT WAS CHANGED DUE TO INCONTINENCE. PT IS CURRENTLY EATING AND NO OTHER CARES ARE NEEDED OR REQUESTED AT THIS TIME. CALL LIGHT WITHIN REACH
[2022-12-13 18:40] VITALS: BP 136/59
--- NOTE | 2022-12-13 19:45 | NUR ---
REPORT RECEIVED FROM DAY SHIFT RN. PT SITTING IN RECLINER ALERT AND ORIENTED. DENIES NEEDS. WHITE BOARD UPDATED. CALL LIGHT IN REACH.
[2022-12-13 19:58] VITALS: BP 142/67
--- NOTE | 2022-12-13 21:23 | NUR ---
EVENING ASSESSMENT COMPLETE. SCHEDULED MEDS ADMIN PER EMAR. PT REPORTS BILAT ARM/RLE PAIN 09/20. PRN FOR PAIN ADMIN PER EMAR. 3PA TO JESU BACK TO BED, PT UNABLE TO USE ARMS DUE TO REPORTED MUSCLE SORENESS. AIR MATTRESS PLACED FOR COMFORT. PT INCONTINENT OF LARGE AMOUNT CONCENTRATED URINE. JEREMY CARE DONE. PUREWICK IN PLACE. RIGHT FOOT WITH DRESSING CDI. RLE REDNESS WITHIN OUTLINE. IV IN LEFT HAND TENDER TO ABX. ABX STOPPED. ROAD GANG SUPERVISOR RN TO ATTEMPT IV START. PT DENIES QUESTIONS OR CONCERNS. CALL LIGHT IN REACH.
--- NOTE | 2022-12-14 00:18 | NUR ---
PT NPO FOR PROCEDURE TOMORROW, VERBALIZES UNDERSTANDING. 2PA TO REPOSITION IN BED. PT REPORTS INCREASED ROM IN UPPER EXTREMITIES AFTER PRN FOR PAIN ADMIN. 2L/NC PLACED FOR SLEEP. NO FURTHER NEEDS.
--- NOTE | 2022-12-14 02:22 | NUR ---
PT AWAKE IN BED. IV ABX INFUSING PER ORDER. PRN FOR ARM/SHOULDER PAIN ADMIN PER EMAR WITH A SIP OF WATER. 2PA TO REPOSITION IN BED. 2L/NC PLACED FOR SLEEPING. RLE ELEVATED ON PILLOW. DRESSING CDI. CALL LIGHT IN REACH.
--- NOTE | 2022-12-14 04:15 | NUR ---
PT RESTING ON LEFT SIDE WITH EYES CLOSED. RESPIRATIONS EVEN. CALL LIGHT IN REACH.
[2022-12-14 04:52] VITALS: BP 147/65
--- NOTE | 2022-12-14 05:34 | NUR ---
SURGICAL WIPE DOWN COMPLETE. GOWN AND LINENS CHANGED. PUREWICK CHANGED AFTER JEREMY CARE. 2PA TO REPOSITION IN BED. PT REMAINS NPO. VS AND I&O OBTAINED. NO FURTHER NEEDS.
[2022-12-14 05:46] LABS: BASOPHILS 0.8 % (0-2); EOSINOPHILS 2.1 % (0-6); HEMATOCRIT 32.6 % (35.0-50.0); HEMOGLOBIN 10.8 g/dL (12.0-18.0); LYMPHOCYTES 11.4 % (24-44); MCH 28.9 (27-36); MCV 87.4 fl (81-99); MONOCYTES 6.6 % (0-12); NEUTROPHILS 79.1 % (39-80); PLATELET COUNT 466 K/uL (140-440); RBC 3.73 M/ul (4.3-5.7); RDW 15.9 (10.5-15.0)
[2022-12-14 05:57] LABS: ANION GAP 10.5 (7-21); BUN/CREATININE RATIO 30.85 (6.0-28.6); CALCIUM 8.4 mg/dL (8.5-10.1); CREATININE, SERUM 1.75 mg/dL (0.55-1.02); POTASSIUM 3.5 mmol/L (3.5-5.1)
--- NOTE | 2022-12-14 06:30 | NUR ---
PT OFF FLOOR WITH YACHT CAPTAIN FOR SCHEDULED PROCEDURE.
--- NOTE | 2022-12-14 07:42 | NUR ---
Report received from Loni DYE. Patient off floor for procedure.
--- NOTE | 2022-12-14 09:04 | NUR ---
PATIENT CURRENTLY IN OR. WILL CHECK IN WHEN SHE RETURNS.
[2022-12-14 09:30] VITALS: BP 187/72
--- NOTE | 2022-12-14 09:30 | NUR ---
Patient arrives back to MS from PACU. A+O. VSS. on RA. Dressing and surgical boot in place to R foot surgery site. Pt reports no pain, slight nausea, improved with medications from PACU and diet soda. Call light in reach, patient states no further needs at this time
--- NOTE | 2022-12-14 09:44 | NUR ---
12/14/22 0944 Nisha Reeves 0845 PT ARRIVED IN PACU WIDE AWAKE C/O NAUSEA. BLOOD SUGAR 193. NO NEW ORDERS. 0859 INAPSINE 0.625MG GIVEN IVP. COOL CLOTH TO FOREHEAD. 09 3 VIEW XRAY OF R FOOT DONE. 0915 SIPPING ON DIET SODA. 0930 TO ROOM 124. BED PLUGGED IN AND CALL LIGHT IN PLACE. REPORT GIVEN TO HARDIK.
[2022-12-14 10:28] VITALS: BP 167/64
--- NOTE | 2022-12-14 10:30 | NUR ---
Medications administered, VSS. Patient would like to sit up and dangle R foot, assisted with this motion at this time. Patient drowsy and intermittently falling asleep and SPO2 drops to 88%, 2L NC O2 applied at this time while patient resting.
--- NOTE | 2022-12-14 10:45 | NUR ---
PROGRESS NOTE AND IMAGING FAXED TO JASWINDER AT [facility] PER REQUEST.
--- NOTE | 2022-12-14 11:40 | NUR ---
3rd set of post op vitals taken. Patient is stable on 2L, drowsy, desats with sleep chronically. CBG taken by ANU Mcghee. No further needs at this time.
[2022-12-14 11:44] VITALS: BP 154/67
--- NOTE | 2022-12-14 12:30 | NUR ---
Last set post op VS complete, pt stable on RA-2L with sleep, states no pain or needs at this time, assisted to reposition in bed. Call light in reach.
--- NOTE | 2022-12-14 13:21 | NUR ---
NURSING STAFF IN ROOM. DID NOT DISTURB. PRAYED FOR HEALING OF BODY AND SPIRIT AND WISDOM IN LIFE.
[2022-12-14 14:43] VITALS: BP 143/75
--- NOTE | 2022-12-14 15:30 | NUR ---
Call light answered, patient requests to transfer to chair. 3PA Kianna assist to chair. Purewick in place. Dry attends/chucks in place. Pt denies pain to R foot, states pain to R arm along with limited ROM. Bed linens changed. Pt on RA at this time. IV SL. Call light in reach, no further needs.
--- NOTE | 2022-12-14 15:30 | NUR ---
PATIENT WAS HOYERED FROM HER BED TO HER CHAIR BY MATEO DYE AND CRISTY CHARGE NURSE. LINENS CHANGED.
--- NOTE | 2022-12-14 16:19 | NUR ---
WHEN PATIENT'S LUNCH CAME SHE NEEDED HELP OPENING UP HER MILK AND HER SILVER EPSTEIN.
--- NOTE | 2022-12-14 18:01 | NUR ---
PATIENT POST OP FOR 2ND TOE REMOVAL AND METATARSAL DEBRIDEMENT. REQUIRES 2L O2 WHEN SLEEPING. PAIN CONTROLLED TO R FOOT. C/O PAIN/WEAKNESS TO R ARM. IV SL. IV ABX. JESU SLING TO CHAIR. PUREWICK IN PLACE CHANGED AT 1600. CBG CHECKS WITH SS INSULIN GIVEN. PT CALLS APPROPRIATELY.
--- NOTE | 2022-12-14 19:44 | NUR ---
REPORT RECEIVED FROM DAY SHIFT RN. PT LYING IN BED ALERT AND ORIENTED. DENIES NEEDS. WHITE BOARD UPDATED. CALL LIGHT IN REACH.
[2022-12-14 20:32] VITALS: BP 149/78
--- NOTE | 2022-12-14 21:04 | NUR ---
EVENING ASSESSMENT COMPLETE. SCHEDULED MEDS ADMIN PER EMAR. PT REPORTS RIGHT ARM PAIN TOLERABLE AT THIS TIME. DENIES NAUSEA. IV ABX ADMIN PER ORDER. IV SITE FLUSHED WITH NS. BRISK BLOOD RETURN NOTED. PT DENIES PAIN WITH INFUSION. RLE WITH DRESSING CDI. WALKING BOOT IN PLACE. RLE REDNESS NOTED, REMAINS WITHIN OUTLINE. 2PA TO REPOSITION IN BED. PT DENIES QUESTIONS OR CONCERNS. CALL LIGHT IN REACH.
--- NOTE | 2022-12-14 23:30 | NUR ---
CALL ISAC ANSWERED. PT INCONTINENT AROUND PUREWICK. JEREMY CARE DONE. CLEAN BRIEF IN PLACE. NEW PUREWICK PLACED. PT ABLE TO ASSIST WITH CARES IN BED. 2PA TO REPOSITION. FRESH WATER PROVIDED. NO FURTHER NEEDS.
[2022-12-15 00:50] VITALS: BP 153/76
--- NOTE | 2022-12-15 00:57 | NUR ---
VS OBTAINED, WNL. PRN FOR RIGHT ARM/FOOT PAIN ADMIN PER EMAR. 2L/NC PLACED FOR SLEEP. NO FURTHER NEEDS.
--- NOTE | 2022-12-15 02:15 | NUR ---
IV ABX INFUSING WNL. ASSISTED PT TO REPOSITION IN BED. RLE ELEVATED ON PILLOW. NO FURTHER NEEDS.
--- NOTE | 2022-12-15 02:38 | NUR ---
IV ABX INFUSING PER ORDER. 2PA TO REPOSITION PT IN BED. PT EMOTIONAL/TEARFUL. THERAPEUTIC COMMUNICATION UTILIZED. ASSESSMENT UNCHANGED. CALL LIGHT IN REACH.
--- NOTE | 2022-12-15 06:15 | NUR ---
VS AND I&O OBTAINED. JEREMY CARE DONE. NEW PUREWICK PLACED. 2PA TO REPOSITION IN BED. PRN FOR ARM PAIN ADMIN PER EMAR. COFFEE PROVIDED. NO FURTHER NEEDS.
[2022-12-15 06:25] LABS: BASOPHILS 0.8 % (0-2); HEMATOCRIT 32.9 % (35.0-50.0); HEMOGLOBIN 10.7 g/dL (12.0-18.0); LYMPHOCYTES 8.8 % (24-44); MCH 28.8 (27-36); MCHC 32.4 g/dl (30-36); MCV 88.8 fl (81-99); NEUTROPHILS 82.4 % (39-80); PLATELET COUNT 469 K/uL (140-440); RBC 3.71 M/ul (4.3-5.7)
[2022-12-15 06:31] VITALS: BP 166/76
[2022-12-15 06:39] LABS: ANION GAP 11.5 (7-21); BUN/CREATININE RATIO 33.33 (6.0-28.6); CALCIUM 8.5 mg/dL (8.5-10.1); CREATININE, SERUM 1.86 mg/dL (0.55-1.02); POTASSIUM 3.5 mmol/L (3.5-5.1)
--- NOTE | 2022-12-15 07:35 | NUR ---
REPORT RECEIVED FROM HARDIK MEDEROS. PT SITTING UP IN BED. PT DENIES ANY NEEDS AT THIS TIME. CALL LIGHT IN REACH.
--- NOTE | 2022-12-15 08:44 | NUR ---
IN TO ADMINISTER MEDICATIONS, SEE MAR. PT TAKES PO MEDICATIONS WITH NO ISSUES. ASSESSMENT COMPLETE. LUNG SOUNDS CLEAR IN RUL AND RACHNA. DIMINISHED IN RLL AND LLL. BOWEL TONES ACTIVE. PT REPORTS DRESSING TO RLE WAS CHANGED BY DR. ANDINO THIS AM. DRESSING TO RLE C/D/I. BOOT IN PLACE. PT REPORTS NUMBNESS AND TINGLING IN BILATERAL FEET AND HANDS, PT STATES NORMAL. PT REPORTING PAIN 3/10 IN ARMS "MOSTLY RIGHT." PT SET UP IN BED FOR BREAKFAST. PT DENIES ANY OTHER NEEDS AT THIS TIME. CALL LIGHT IN REACH.
--- NOTE | 2022-12-15 10:10 | NUR ---
IN TO ADMINISTER MEDICATION, SEE MAR. PT UP IN BED WITH EYES CLOSED. RR EVEN AND UNLABORED. PT RESPONDS WHEN ADDRESSED. OFFERED TO GET PT UP TO RECLINER, PT REFUSES. PT DENIES ANY OTHER NEEDS AT THIS TIME. CALL LIGHT IN REACH.
--- NOTE | 2022-12-15 10:45 | NUR ---
IN TO ANSWER CALL LIGHT. PT REQUESTING HOB TO BE LOWERED. HOB LOWERED PER PT REQUEST. PT 100% O2 ON 1L NC. NC REMOVED AND O2 SATS MAINTAIN BETWEEN 98-99% ON RA. PT DENIES ANY OTHER NEEDS AT THIS TIME. CALL LIGHT IN REACH. BED ALARM ON.
[2022-12-15 11:02] VITALS: BP 152/88
--- NOTE | 2022-12-15 11:15 | NUR ---
IN THIS RN ALERTED BY ANU GOLDSMITH THAT IV PUMP ALARMING, RESOLVED. PT RESTING IN BED WITH EYES CLOSED, RR EVEN AND UNLABORED. PT AWAKENS WHEN THIS RN ENTERS ROOM. PT DENIES ANY NEEDS AT THIS TIME. CALL LIGHT IN REACH.
--- NOTE | 2022-12-15 11:36 | NUR ---
DR. ANDINO TO THE OFFICE TO DISCUSS PATIENT DISCHARGE PLAN. HE STATES THAT PATIENT CONTINUES TO STATE SHE HAS WEAKNESS AND PAIN IN HER UPPER EXTREMITIES. INTO PATIENT ROOM. PATIENT SITTING UP IN BED, APPEARS DROWSY AND SAD. PATIENT STATES SHE IS HAVING A LOT OF UPPER BODY PAIN AND WEAKNESS IN SURGERY. SHE STATES SHE WAS NOT LIKE THIS PRIOR TO HER ADMISSION. PATIENT AGREES THAT SHE IS NOT ABLE TO RETURN HOME AT THIS TIME AND AGREES TO A SHORT PLACEMENT TO [facility] FOR THERAPY. DISCUSSED LOCAL PLACEMENT OPTIONS. PATIENT STATES SHE WOULD LIKE TO START WITH THE FACILITY CLOSEST TO HER HOME. ADVISED I WILL SEND HER CHART TO [facility] AND [facility]. PATIENT IS AGREEABLE. DR. LRIA UPDATED.
--- NOTE | 2022-12-15 12:09 | NUR ---
IN TO ADMINISTER MEDICATION, SEE MAY. LUNCH TRAY DELIVERED. PT DENIES ANY OTHER NEEDS AT THIS TIME. CALL LIGHT IN REACH.
[2022-12-15 13:25] VITALS: BP 150/78
--- NOTE | 2022-12-15 13:45 | NUR ---
PT APPEARED TO BE SLEEPING. DID NOT DISTURB. LEFT GUIDEPOST WITH PRAYER CARD AND CONTACT CARD.
--- NOTE | 2022-12-15 14:48 | NUR ---
PER GAURAV AT [facility] THEY ARE NOT ACCEPTING [facility] PATIENTS AT THIS TIME.
--- NOTE | 2022-12-15 15:23 | NUR ---
IN TO ROUND ON PT. PT UP IN BED. PT RESPONDS WHEN ADDRESSED. PT REPORTING PAIN 6/10 IN RIGHT FOOT AND ARM. PRN PAIN MEDICATION ADMINISTERED, SEE MAR. ASSESSMENT COMPLETE. LUNG SOUNDS CLEAR IN RUL AND RACHNA. DIMINISHED IN RLL AND LLL. BOWEL TONES ACTIVE. DRESSING TO RIGHT FOOT C/D/I. REDNESS TO RIGHT CALF DOES NOT EXCEED OUTLINE, NOT WARM TO TOUCH. PT INCONTINENT OF URINE. HARDIK FERRARO IN TO ASSIST WITH JEREMY CARE. JER[facility]ARE PROVIDED. NEW ATTENDS PLACED. NEW PUREWICK PLACED. PT DENIES ANY OTHER NEEDS AT THIS TIME. CALL LIGHT IN REACH. ENCOURAGED PT TO USE IS. PT USES IS UP TO 750 X6 TIMES.
--- NOTE | 2022-12-15 17:10 | NUR ---
IN TO ADMINISTER MEDICATION, SEE MAR. PT REPORTING PAIN 05/21. PT DENIES ANY OTHER NEEDS AT THIS TIME. CALL LIGHT IN REACH. PT SITTING UP IN BED WATCHING TV.
[2022-12-15 17:53] VITALS: BP 137/47
--- NOTE | 2022-12-15 18:28 | NUR ---
IN TO ANSWER CALL LIGHT. IV PUMP ALARMING, RESOLVED. IV ABX STARTED, SEE MAR. PT REPORTS BEING DONE WITH DINNER, TRAY REMOVED. PT DENIES ANY OTHER NEEDS AT THIS TIME. CALL LIGHT IN REACH.
--- NOTE | 2022-12-15 19:40 | NUR ---
REPORT RECEIVED FROM DAY SHIFT RN. PT RESTING COMFORTABLY IN BED WITH EYES CLOSED. BREATHING EVEN AND UNLABORED. NO NEEDS EXPRESSED AT THIS TIME. IV ABX INFUSING. CALL LIGHT WITHIN REACH. SAFETY PRECAUTIONS IN PLACE.
[2022-12-15 21:43] VITALS: BP 151/79
--- NOTE | 2022-12-16 00:40 | NUR ---
PT RESTING COMFORTABLY IN BED. BREATHING EVEN AND UNLABORED. POSITIONED ON SIDE FOR COMFORT. NO NEEDS EXPRESSED AT THIS TIME. CALL LIGHT WITHIN REACH. SAFETY PRECAUTIONS IN PLACE.
--- NOTE | 2022-12-16 01:35 | NUR ---
PATIENT REPOSITIONED IN BED. PATIENT PROVIDED WITH FRESH ICE WATER. PATIENT RATES PAIN AT A 3/10 AND DENIES THE NEED FOR INTERVENTION AT THIS TIME. PATIENT DENIES ANY FURTHER NEEDS. CALL LIGHT AND BELONGINGS ARE WITHIN REACH.
--- NOTE | 2022-12-16 03:45 | NUR ---
PT REQUESTING PAIN MEDICATION AT THIS TIME. PAIN MEDICATION ADMINISTERED. NO OTHER NEEDS AT THIS TIME. CALL LIGHT WITHIN REACH. SAFETY PRECAUTIONS IN PLACE. WILL CONTINUE TO MONITOR.
[2022-12-16 05:27] VITALS: BP 149/79
[2022-12-16 06:09] LABS: BASOPHILS 0.7 % (0-2); EOSINOPHILS 2.3 % (0-6); HEMATOCRIT 29.9 % (35.0-50.0); HEMOGLOBIN 9.9 g/dL (12.0-18.0); LYMPHOCYTES 9.9 % (24-44); MCHC 32.9 g/dl (30-36); MCV 87.9 fl (81-99); MONOCYTES 4.4 % (0-12); NEUTROPHILS 82.7 % (39-80); PLATELET COUNT 479 K/uL (140-440); RDW 15.8 (10.5-15.0)
[2022-12-16 06:31] LABS: ALBUMIN 1.8 g/dL (3.4-5.0); ALBUMIN/GLOBULIN RATIO 0.36 (1.1-2.4); ANION GAP 9.8 (7-21); BILIRUBIN, TOTAL 0.6 ng/dL (0.2-1.0); BUN/CREATININE RATIO 31.3 (6.0-28.6); CALCIUM 8.7 mg/dL (8.5-10.1); CREATININE, SERUM 2.3 mg/dL (0.55-1.02); POTASSIUM 3.8 mmol/L (3.5-5.1); PROTEIN, TOTAL 6.8 g/dL (6.4-8.2)
--- NOTE | 2022-12-16 06:42 | NUR ---
PT SITTING UP IN BED WATCHING TV. PERICARE PROVIDED AND PUREWICK CHANGED. NO OTHER NEEDS EXPRESSED AT THIS TIME. CALL LIGHT WITHIN REACH. SAFETY PRECAUTIONS IN PLACE.
--- NOTE | 2022-12-16 07:00 | NUR ---
REPORT RECEIVED FROM HARDIK DAHL. PT IN HIGH FOWLERS IN BED WITH EYES CLOSED, RR EVEN AND UNLABORED. O2 SATS AT 94% ON 1L NC. NO NEEDS IDENTIFIED AT THIS TIME. CALL LIGHT IN REACH.
--- NOTE | 2022-12-16 08:14 | NUR ---
THIS RN AND HARDIK KHALIL TALKED TO DR. LIRA ASKING IF HE WOULD LIKE TO HOLD OFF ON ANY MORNING MEDICATIONS DUE TO PTs ELEVATED LIVER ENZYMES. PER DR. LIRA GIVE THE INSULIN, BUT HOLD OFF ON ALL OTHER MEDICATIONS UNTIL A REPEAT LAB IS DONE. VERIFIED WITH READBACK.
--- NOTE | 2022-12-16 08:22 | NUR ---
IN TO ADMINISTER MEDICATION, SEE MAR. LAB IN ROOM. ASSESSMENT COMPLETE. LUNG SOUNDS CLEAR IN RUL AND RACHNA. DIMINISHED IN RLL AND LLL. BOWEL TONES ACTIVE. ABD FIRM WITH PALPATION. RIGHT LOWER EXTREMITY REDNESS DOES NOT EXCEED OUTLINED AREA. SLIGHTLY WARM TO TOUCH. DRESSING TO RIGHT FOOT C/D/I. PT REPORTING PAIN 5/10 IN RIGHT FOOT AND RIGHT ARM PT STATES "IT IS OKAY THOUGH." IV FLUSHES WNL. OFFERED TO ASSIST PT WITH GETTING TO RECLINER, PT REFUSES. PT REQUESTING TO TAKE BREAKFAST TRAY AWAY AND STATES "I AM NOT VERY HUNGRY." PT REQUESTING TO KEEP MILK AND ORANGES. PT UP IN BED WATCHING TV. PT ON RA WITH O2 SATS AT 92% RR OF 18 NOTED. PT DENIES ANY OTHER NEEDS AT THIS TIME. CALL LIGHT IN REACH.
[2022-12-16 08:51] LABS: ALBUMIN 1.8 g/dL (3.4-5.0); ALBUMIN/GLOBULIN RATIO 0.35 (1.1-2.4); BILIRUBIN, TOTAL 0.6 ng/dL (0.2-1.0); BUN/CREATININE RATIO 30.76 (6.0-28.6); CALCIUM 8.8 mg/dL (8.5-10.1); CREATININE, SERUM 2.34 mg/dL (0.55-1.02); PROTEIN, TOTAL 6.9 g/dL (6.4-8.2)
--- NOTE | 2022-12-16 09:20 | NUR ---
HARDIK RANDLE REQUESTED I VISIT PT, INDICATING SHE WAS CONCERNED AND THAT PT HAD SAID SHE WOULD LIKE TO TALK WITH ME. PT'S INITIALLY INTERACTED IN A TIRED MANNER WITH A WEAK VOICE. I EXERCISED MINISTRY OF PRESENCE AND JAMIL PT INTO CONVERSATION ABOUT FAMILY AND HOME LIFE. AT END OF VISIT, PT SEEMED TO BE IN BETTER MOOD. CONSENTED TO PRAYER. PRAYED FOR COMFORT OF BODY AND SPIRIT.
[2022-12-16 09:28] VITALS: BP 124/70
--- NOTE | 2022-12-16 10:58 | NUR ---
IN TO ADMINISTER MEDICATIONS, SEE MAR. PER HOLD FABIAN PERALTA HELD. MEDICATIONS ADMINISTERED, SEE MAR. PT TAKES PO MEDICATIONS WTIH NO ISSUES. PHYSICAL THERAPY AND OCCUPATIONAL THERAPY IN ROOM. REDNESS NOTED TO UNDER PANNUS AND GROIN AREA. DESENEX POWDER APPLIED. PT DENIES ANY OTHER NEEDS AT THIS TIME. CALL LIGHT IN REACH.
--- NOTE | 2022-12-16 11:45 | NUR ---
IN TO ROUND ON PT. PT UP IN BED. BG CHECKED. IV ABX STARTED, SEE MAR. PT DENIES ANY OTHER NEEDS AT THIS TIME. CALL LIGHT IN REACH. LAB IN ROOM.
--- NOTE | 2022-12-16 12:01 | NUR ---
AGRICULTURAL SPECIALIST WENT BY PT ROOM AND THE PATIENT WAS HAVING A DRSG. CHANGED. CASE MANGER WILL RETURN LATER TODAY TO DISCUSS THE DC PLAN.
--- NOTE | 2022-12-16 13:02 | NUR ---
IN TO ROUND ON PT. PT SITTING UP IN BED. PT REPORTS BEING DONE WITH LUNCH TRAY, NOTED 0% OF LUNCH WAS TAKEN IN. PT REPORTING PAIN 08/21. WILL CALL DR. LIRA TO ASK FOR SOMETHING FOR PAIN. PT DENIES ANY OTHER NEEDS AT THIS TIME. CALL LIGHT IN REACH.
--- NOTE | 2022-12-16 13:07 | NUR ---
THIS RN CALL DR. LIRA REGARDING PT ASKING FOR SOMETHING FOR PAIN. DR. LIRA TO ADD ORDERS.
[2022-12-16 13:55] VITALS: BP 138/65
--- NOTE | 2022-12-16 14:25 | NUR ---
IN TO START IV FLUIDS, SEE MAR. GARZA AND ATTENDS CHANGED. ASSESSMENT COMPLETE. LUNG SOUNDS CLEAR IN RUL AND RACHNA. DIMINISHED IN RLL AND LLL. CRACKLES IN LLL. BOWEL TONES ACTIVE. PT REPORTING PAIN IN RIGHT FOOT AND RIGHT ARM 09/20. DRESSING TO RLE C/D/I. REDNESS TO RLE DOES NOT EXCEED OUTLINE, NOT WARM TO TOUCH. PT DENIES ANY OTHER NEEDS AT THIS TIME. CALL LIGHT IN REACH.
--- NOTE | 2022-12-16 15:25 | NUR ---
IN TO ANSWER CALL LIGHT. IV PUMP ALARMING, RESOLVED. IV FLUID COMPLETE. IV ABX STILL INFUSING WNL. PT DENIES ANY OTHER NEEDS AT THIS TIME. CALL LIGHT IN REACH.
--- NOTE | 2022-12-16 16:38 | NUR ---
IN WITH DR. ANDINO. IV PUMP ALARMING, ABX COMPLETE. PT SL AT THIS TIME. PT SITTING UP IN BED. DR. ANDINO PERFORMING DRESSING CHANGE TO RIGHT FOOT. PT DENIES ANY NEEDS FROM THIS RN AT THIS TIME. CALL LIGHT IN REACH.
[2022-12-16 17:23] VITALS: BP 151/84
--- NOTE | 2022-12-16 17:32 | NUR ---
IN TO ADMINISTER MEDICATION, SEE MAR. PT REPORTING FEELING SOB. LUNG SOUNDS CRACKLES AND DIMINISHED IN RLL AND LLL. WHEEZE IN RUL. CLEAR IN RACHNA. VITALS AND I&Os COMPLETE. PT BOOSTED IN BED WITH ASSISTANCE FROM HARDIK KHALIL. PT DENIES ANY NEEDS AT THIS TIME. CALL LIGHT IN REACH.
--- NOTE | 2022-12-16 18:20 | NUR ---
IN TO ROUND ON PT. PT SITTING UP IN BED. PT REPORTS BEING DONE WITH DINNER TRAY. TRAY REMOVED. PT HOB ADJUSTED PER PT REQUEST. BED WEIGHT OBTAINED. NOTED BED HAS 3 PILLOWS, GREEN BLANKET, 1 SHEET, 1 SLIDE SHEET, AND 2 VAL PADS.
--- NOTE | 2022-12-16 19:30 | NUR ---
REPORT RECEIVED FROM DAY SHIFT RN. PT RESTING BED WITH EYES CLOSED. BREATHING EVEN AND UNLABORED. NO SIGNS OF ACUTE DISTRESS. CALL LIGHT WITHIN REACH. SAFETY PRECAUTIONS IN PLACE.
[2022-12-16 20:51] VITALS: BP 152/78
--- NOTE | 2022-12-16 22:58 | NUR ---
IN TO ASSIST PT WITH POSITIONING NEEDS, DID NEED TO BOOST 2PA, NO FURHTER NEEDS
--- NOTE | 2022-12-17 03:16 | NUR ---
PT FELT LIKE HAVING A BM, 2PA ONTO A BEDPAN, NO BM AT THIS TIME, UNABLE TO TOLERATE BEDPAN
[2022-12-17 05:33] LABS: BASOPHILS 0.5 % (0-2); EOSINOPHILS 2.4 % (0-6); HEMATOCRIT 28.3 % (35.0-50.0); HEMOGLOBIN 9.3 g/dL (12.0-18.0); LYMPHOCYTES 9.6 % (24-44); MCH 28.9 (27-36); MCHC 32.7 g/dl (30-36); MCV 88.3 fl (81-99); MONOCYTES 4.4 % (0-12); NEUTROPHILS 83.1 % (39-80); PLATELET COUNT 448 K/uL (140-440); RDW 16.1 (10.5-15.0)
[2022-12-17 05:47] LABS: ALBUMIN 1.7 g/dL (3.4-5.0); ALBUMIN/GLOBULIN RATIO 0.35 (1.1-2.4); ANION GAP 9.8 (7-21); BILIRUBIN, TOTAL 0.5 ng/dL (0.2-1.0); BUN/CREATININE RATIO 30.16 (6.0-28.6); CALCIUM 8.8 mg/dL (8.5-10.1); CREATININE, SERUM 2.42 mg/dL (0.55-1.02); POTASSIUM 3.8 mmol/L (3.5-5.1); PROTEIN, TOTAL 6.6 g/dL (6.4-8.2)
[2022-12-17 06:10] VITALS: BP 158/93
--- NOTE | 2022-12-17 07:30 | NUR ---
REPORT RECEIVED FROM HARDIK DAHL. PT SITTING UP IN RECLINER. PT RESPONDS WHEN ADDRESSED. PT DENIES ANY NEEDS AT THIS TIME. CALL LIGHT IN REACH.
--- NOTE | 2022-12-17 07:35 | NUR ---
REPORT GIVEN TO DAY SHIFT NURSE. PT SITTING UP IN CHAIR WATCHING TV. NO SIGNS OF ACUTE DISTRESS. IV ABX INFUSING. NO NEEDS EXPRESSED AT THIS TIME. CALL LIGHT WITHIN REACH. PURWICK IN PLACE. SAFETY PRECAUTIONS IN PLACE.
--- NOTE | 2022-12-17 09:05 | NUR ---
IN TO ADMINISTER MEDICATIONS, SEE MAR. PT TAKES PO MEDICATIONS WITH NO ISSUES. PT REPORTING PAIN 5/10 GENERALIZED. LIDOCANE PATCH APPLIED TO PTs LEFT SHOULDER. ASSESSMENT COMPLETE. LUNG SOUNDS CLEAR IN RUL AND RACHNA. DIMINISHED IN RLL AND LLL. BOWEL TONES ACTIVE. DRESSING TO RLE C/D/I. REDNESS TO RIGHT LEG DOES NOT EXCEED OUTLINED AREA, NOT WARM TO TOUCH. RLE ELEVATED IN RECLINER. IV FLUSHES WNL. PT FINISHED WITH BREAKFAST, TRAY REMOVED. PT DENIES ANY OTHER NEEDS AT THIS TIME. CALL LIGHT IN REACH.
[2022-12-17 09:14] VITALS: BP 142/65
--- NOTE | 2022-12-17 10:22 | NUR ---
SPOKE TO [facility]. PATIENT HAS A PRE-AUTH FOR PLACEMENT ON TUESDAY. UPDATED NOTES WILL BE REVIEWED TUESDAY AND SENT TO [facility] TUESDAY. PATIENT UPDATED THAT A SNF BED IS BEING HELD FOR THE PATIENT TO GO WHEN MEDICALLY STABLE.
--- NOTE | 2022-12-17 10:38 | NUR ---
PT SEEMED IN BETTER SPIRITS TODAY COMPARED TO YESTERDAY. STATED STILL FRUSTRATED BY WEAKNESS IN ARMS BUT REASSURED BECAUSE CAUSE OF WEAKNESS HAD BEEN IDENTIFIED AND WAS BEING REMEDIED. PRAYED FOR ORTHODOX OF STRENGTH AND ABIDING PEACE.
--- NOTE | 2022-12-17 10:45 | NUR ---
IN TO ROUND ON PT. PT UP IN RECLINER. PT REQUESTING TO HAVE LIGHTS TURNED OFF SO PT CAN "TAKE A NAP." LIGHT TURNED OFF. PT DENIES ANY OTHER NEEDS AT THIS TIME. CALL LIGHT IN REACH.
--- NOTE | 2022-12-17 10:55 | NUR ---
IN TO ASK PT ABOUT PAIN. PT NOTED TO BE RESTING IN RECLINER WITH EYES CLOSED, RR EVEN AND UNLABORED. RLE ELEVATED IN RECLINER. NO OTHER NEEDS IDENTIFIED AT THIS TIME. CALL LIGHT IN REACH.
--- NOTE | 2022-12-17 12:07 | NUR ---
IN TO ADMINISTER MEDICATION, SEE MAR. PT UP IN RECLINER. PT REQUESTING TO HAVE LEG DOWN. LEG DOWN PER PT REQUEST. ENCOURAGED PT TO USE IS. PT USES IS TO 1000ML X6 TIMES. IV PUMP ALARMING, RESOLVED. PT DENIES ANY OTHER NEEDS AT THIS TIME. CALL LIGHT IN REACH.
--- NOTE | 2022-12-17 12:50 | NUR ---
IN WITH ANU TO TO GET PT FROM RECLINER TO BED THIS RN INFORMED SOMEONE WILL BE TO PTs ROOM SHORTLY TO PLACE A PICC LINE. PT TOLERATED TRANSFER WITH JESU WELL. NEW PUREWICK PLACED. BED WEIGHT OBTAINED WITH 2 PILLOWS, 1 VAL PAD AND GREEN BLANKET AND SHEET. PT DENIES ANY OTHER NEEDS AT THIS TIME. CALL LIGHT IN REACH.
--- NOTE | 2022-12-17 13:10 | NUR ---
WARP STARTER IS NOT HERE TODAY. THERE IS A DIABETES ED CONSULT. PATIENT STATES SHE HAS A CONTINUOUS BLOOD GLUCOSE MONITOR AND HER BS HAVE BEEN UNDER 200. SHE TAKES INSULIN AT HOME. SHE DOES NOT FOLLOW ANY PARTICULAR DIET. SHE DOESN'T EAT BREAKFAST. FIRST MEAL IS AROUND 3-4 PM AND IS "WHATEVER WE'VE GOT." SHE STATES "I DO THE BEST I CAN WITH WHAT I'VE GOT." SHE HAS NO QUESTIONS OR CONCERNS ABOUT HER DIET. CONTINUE 60 GM CONSISTENT CARB DIET WHILE HERE.
--- NOTE | 2022-12-17 13:50 | NUR ---
IN WITH COURTNEY Quintanilla RN. IV PUMP ALARMING IV REMOVED, SEE VASCULAR ACCESS. COURTNEY Quintanilla RN IN TO ATTEMPT TO PLACE PICC LINE. NO NEEDS FROM THIS RN AT THIS TIME.
--- NOTE | 2022-12-17 14:26 | PATH ---
[facility] [address], [place] [address] Signed SPECIMEN(S): A RIGHT FOOT 2ND TOE SPECIMEN(S): B RIGHT FOOT FIRST METATARSAL SPECIMEN(S): C RIGHT FOOT SECOND METATARSAL HEAD SPECIMEN SOURCE: A. RIGHT FOOT 2ND TOE B. RIGHT FOOT FIRST METATARSAL C. RIGHT FOOT SECOND METATARSAL HEAD CLINICAL HISTORY: Pre: Sepsis, osteomyelitis, necrotic right foot second toe. Post: Amputation and debridement. FINAL PATHOLOGIC DIAGNOSIS: A. Right foot 2nd toe: - Necrotic toe with prominent soft tissue and skin necrosis and acute suppurative inflammation. - Features focally consistent with acute osteomyelitis. - Acute inflammation is present at the skin and soft tissue margins. B. Right foot first metatarsal: - Bone with focal fat necrosis and acute inflammation consistent with osteomyelitis. C. Right foot second metatarsal head: - Portion of benign bone with focal fat necrosis and rare acute inflammation, suspicious for osteomyelitis. JVR:brennon MICROSCOPIC EXAMINATION: Histologic sections of all submitted blocks are examined by light microscopy. These findings, together with the gross examination, support the pathologic diagnosis. GROSS DESCRIPTION: A. The specimen, labeled and designated "Harriett, right foot second toe," is received in formalin and consists of a toe that measures 5.5 x 2.0 x 2.0 cm. The level of the amputation is within the MTP joint. The bone resection margin is articulated. Distal half of the toe shows dark brown skin. Tip of the toe is covered with brown-mascorro eschar that measures 2.0 x 1.5 cm. Skin resection margin is inked. Specimen is longitudinally sectioned through the eschar and upon sectioning shows pink-mascorro, slightly soft underlying distal phalange. Specimen PATIENT NAME: LINH PEDRAZA PATHOLOGY DATE OF : 65 REPORT #: [id number] PHYSICIAN: ELISE PATHOLOGY PCP: ABIMBOLA TAVERAS MD REPORT IS CONFIDENTIAL AND NOT TO BE RELEASED WITHOUT AUTHORIZATION [facility] [address], [place] [address] Signed is left for decalcification in decal stat prior to processing. Cassette Summary: (A1) toe, longitudinal section (A2) skin resection margins, shave B. The specimen, labeled and designated "Harriett, right foot first metatarsal," is received in formalin and consists of two parts of metatarsal bone that in aggregate measure 4.0 x 1.5 x 1.3 cm. The metatarsal head is covered with pink-mascorro, smooth cartilage. Bone resection margin is inked. Sectioning through the bone reveals yellow-mascorro trabeculated surface. Specimen is left for decalcification in decal stat prior to processing. Bone resection margin, shave is submitted in (B1). C. The specimen, labeled and designated "Harriett, right foot second metatarsal head," is received in formalin and consists of metatarsal head that measures 2.2 x 1.6 x 1.4 cm. The metatarsal head is covered with pink-mascorro, smooth cartilage. Resection margin is inked. Specimen is longitudinally sectioned and upon sectioning shows yellow-mascorro trabeculated bone tissue. Specimen is left for decalcification in decal stat prior to processing. Outsole Molder sections are submitted in (C1). JS (under the direct supervision of a pathologist) The Gross Description was prepared using a voice recognition system. The report was reviewed for accuracy; however, sound-alike word errors, addition and/or deletions may occur. If there is any question about this report, please contact Client Services. ADDITIONAL NOTES: Immunohistochemical and/or in situ hybridization studies if performed in this case included appropriate positive controls that reacted as expected. This test was developed and its performance characteristics determined by [facility]. It has not been cleared or approved by the U.S. Food and Drug Administration. The FDA has determined that such clearance or approval is not necessary. This test is used for clinical purposes. It should not be regarded as investigational or for research. [facility] is certified under the Clinical Laboratory Improvement Amendments of 1988 (CLIA) as qualified to perform high complexity clinical laboratory testing. PATIENT NAME: LINH PEDRAZA PATHOLOGY DATE OF : 65 REPORT #: [id number] PHYSICIAN: ELISE PEMBERTON PCP: ABIMBOLA TAVERAS MD REPORT IS CONFIDENTIAL AND NOT TO BE RELEASED WITHOUT AUTHORIZATION [facility] [address], [place] [address] Signed PERFORMING LABORATORY: Technical component was performed by [facility], [address] [place] [id number] (CLIA# [id number]). Professional interpretation was performed by [facility] ([facility] - [facility], [address] [place], [place] [address]., [place] [address] (CLIA#: [id number]). Diagnostician: Sebastian Wilkerson MD Pathologist Electronically Signed 12/17/2022 Copies: ~ PATIENT NAME: LINH PEDRAZA PATHOLOGY DATE OF : 65 REPORT #: [id number] PHYSICIAN: ELISE PATHOLOGY PCP: ABIMBOLA TAVERAS MD REPORT IS CONFIDENTIAL AND NOT TO BE RELEASED WITHOUT AUTHORIZATION
--- NOTE | 2022-12-17 15:09 | NUR ---
WAS ASKED TO PLACE A PICC LINE FOR 6 WEEKS OF IV ABX. EXAMINED THE PT'S RIGHT ARM. THE BASILIC, BRACHIAL, AND CEPHALIC VEINS WERE EXAMINED. THE PT HAS DECREASED MOBILITY IN HER BILATERAL SHOULDERS. PT IS UNABLE TO FULLY ROTATE EITHER ARM TO GET GOOD ACCESS TO THE BASILIC VEIN. THE BRACHIAL VEIN IS TOO SMALL FOR A 4 FR PICC LINE AND TO THE SIDE OF THE BRACHIAL ARTERY. THE CEPHALIC VEIN IS LARGE ENOUGH THAT THE 4 FR PICC WILL TAKE UP APPROXIMATELY 29% OF THE VEIN ACCORDING TO THE SITE RITE 8. THE VEIN WAS ACCESSED ON THE FIRST ATTEMPT, DARK RED, NONPULSITILE BLOOD RETURNED. THE GUIDEWIRE AND INTRODUCER EASILY ADVANCED INTO THE VEIN. THE PICC LINE EASILY ADVANCED INTO THE VEIN UNTIL APPROXIMATELY 15 CM WERE LEFT OUTSIDE THE ARM. AT THIS SPOT THAT PICC LINE WOULD NOT ADVANCED ANY FURTHER. ATTEMPTED TO REPOSITION PT'S ARM AND ADVANCE THE PICC SLOWER. THE PICC LINE REMAINED RESISTANT TO ADVANCE. ULTIMATELY IT WAS DECIDED TO ABANDON THE SITE. THE LEFT ARM WAS EXAMINED WITH THE SAME CONCERNS THE RIGHT ARM. THE CEPHALIC VEIN IS THE ONLY VIABLE OPTION. DISCUSSED THIS WITH DR. MAHMOOD AND THIS RN'S CONCERNS WITH TRYING TO USE THE CEPHALIC VEIN ON THE LEFT SIDE MIGHT RESULTS THE SAME WAY THE RIGHT SIDE. DR. MAHMOOD AGREES WITH THIS AND ORDERS FOR A MIDLINE TO BE PLACED INSTEAD. PT NEEDING TO USE THE BEDPAN. DISCUSSED WITH PT'S NURSE THAT THIS RN WOULD COME BACK FOR THE MIDLINE ONCE SHE IS DONE.
[2022-12-17 15:20] VITALS: BP 174/82
--- NOTE | 2022-12-17 16:25 | NUR ---
IN TO ADMINISTER MEDICATION, SEE MAR. IV ABX STARTED LATE DUE TO NO IV ACCESS. COURTNEY Quintanilla RN PLACED MIDLINE. IV ABX STARTED, SEE MAR. ASSESSMENT COMPLETE. LUNG SOUNDS CLEAR IN RUL AND RACHNA. DIMINISHED IN RLL AND LLL. RLE DRESSING C/D/I. REDNESS TO RLE DOES NOT EXCEED OUTLINE, NOT WARM TO TOUCH. RLE ELEVATED ON PILLOW. PT REPORTING PAIN 5/10 GENERALIZED. PT REPOSITIONED IN BED. PT DENIES ANY OTHER NEEDS AT THIS TIME. CALL LIGHT IN REACH.
--- NOTE | 2022-12-17 16:32 | NUR ---
1600- MIDLINE PLACED AFTER DISCUSSING WITH DR. MAHMOOD. PRIOR TO PLACING THE PICC LINE IT WAS DISCUSSED WITH DR. MAHMOOD ABOUT THE PT'S KIDNEY FUNCTION AND HAVING CHRONIC KIDNEY DISEASE. WOULD LIKE TO PROCEED WITH THE LINE THE PT NEEDS IV ABX. DARK RED, NONPUSITILE BLOOD RETURNED. GUIDEWIRE AND CATHETER EASILY ADVANCE INTO THE VEIN. PT REPORTS NO PAIN WITH THIS. MIDLINE DRAWS BLOOD AND FLUSHES EASILY. CASE MANAGEMENT PROVIDED STAT LOCKS AND DIRECTIONS FOR USE THE PT IS SUPPOSED TO BE DC'D TO A FACILITY ON TUESDAY AND THE FACILITY WILL NEED THESE FOR DRESSING CHANGES.
--- NOTE | 2022-12-17 17:05 | NUR ---
IN TO ADMINISTER MEDICATION, SEE MAY. DINNER TRAY PROVIDED. PTs O2 SATS BETWEEN 93-97% ON RA. PT DENIES ANY OTHER NEEDS AT THIS TIME. CALL LIGHT IN REACH.
[2022-12-17 17:49] VITALS: BP 151/80
--- NOTE | 2022-12-17 17:53 | NUR ---
IN WITH ANU TO TO REPOSITION PT. PT REPOSITIONED IN BED. VITALS AND I&Os COMPLETE. PT DENIES ANY OTHER NEEDS AT THIS TIME. CALL LIGHT IN REACH.
--- NOTE | 2022-12-17 19:41 | NUR ---
REPORT RECEIVED FROM DAY SHIFT RN. PT RESTING COMFORTABLY IN BED WITH EYES CLOSED. BREATHING EVEN AND UNLABORED. NO SIGNS OF ACUTE DISTRESS. MIDLINE IN PLACE AND IV FLUIDS INFUSING. NO NEEDS EXPRESSED AT THIS TIME. WILL CONTINUE TO MONITOR.
[2022-12-17 20:28] VITALS: BP 153/70
--- NOTE | 2022-12-17 20:35 | NUR ---
Assisted RN with changing Pt's purewick, bedding, chucks, and gown. Checked Pt's BS and repositioned Pt. Call light left in reach. No other needs expressed by Pt.
--- NOTE | 2022-12-17 20:50 | NUR ---
Gave Pt fresh water with ice. Call light left in reach. No other needs expressed by Pt.
--- NOTE | 2022-12-17 22:10 | NUR ---
Assisted RN with repositioning Pt and placing blankets on Pt. Adjusted room temperature. Call light left in reach. No other needs expressed by Pt.
--- NOTE | 2022-12-18 00:58 | NUR ---
PT RESTING IN BED WITH EYES CLOSED. BREATHING EVEN AND UNLABORED. CALL LIGHT WITHIN REACH. NO SIGNS OF ACUTE DISTRESS. NO NEEDS EXPRESSED AT THIS TIME. SAFETY PRECAUTIONS IN PLACE. IV FLUIDS INFUSING. WILL CONTINUE TO MONITOR.
--- NOTE | 2022-12-18 03:46 | NUR ---
IN TO ASSIST PT UP TO THE CHAIR MARIA ESTHER NAILS, FRESH ICE WATER PROVIDED, CPOX AND PUREWICK IN PLACE, CALL LIGHT IN REACH
[2022-12-18 05:25] LABS: BASOPHILS 0.5 % (0-2); EOSINOPHILS 2.3 % (0-6); HEMATOCRIT 26.7 % (35.0-50.0); HEMOGLOBIN 8.9 g/dL (12.0-18.0); LYMPHOCYTES 8.9 % (24-44); MCH 29.6 (27-36); MCHC 33.4 g/dl (30-36); MCV 88.6 fl (81-99); NEUTROPHILS 84.3 % (39-80); PLATELET COUNT 448 K/uL (140-440); RBC 3.01 M/ul (4.3-5.7)
[2022-12-18 05:46] LABS: ANION GAP 9.8 (7-21); BUN/CREATININE RATIO 29.25 (6.0-28.6); CALCIUM 9.2 mg/dL (8.5-10.1); CREATININE, SERUM 2.7 mg/dL (0.55-1.02); POTASSIUM 3.8 mmol/L (3.5-5.1)
[2022-12-18 06:20] VITALS: BP 153/85
--- NOTE | 2022-12-18 07:27 | NUR ---
RECIEVED REPORT FROM HARDIK DAHL. PT IS UP IN CHAIR AND COMFORTABLE. SHE HAS AN EXTERNAL CATHETER IN PLACE. MIDLINE IS C/D/I. DAILY WGTS. PT NEEDED TO BE HOYERED, HAD BEEN SBA WITH WALKER.
--- NOTE | 2022-12-18 08:05 | NUR ---
pt assisted with using bed sol. pt sitting back in chair. call light within reach no further tasks at this time
[2022-12-18 09:25] VITALS: BP 144/75
--- NOTE | 2022-12-18 10:15 | NUR ---
REPORT RECEIVED FROM EBER DYE - ASSUMING CARE.
--- NOTE | 2022-12-18 10:22 | NUR ---
pt moved from chair to bed by lashonda. pt placed on bed sol for bowel movement. call light within reach no further tasks at this time
--- NOTE | 2022-12-18 11:45 | NUR ---
RN IN ROOM TO ROUND ON PT - JUST FINISHED PHYSICAL THERAPY SESSION. IN BED WITH HOB ELEVATED AND TABLE IN REACH. DENIES NEEDS AT THIS TIME. CALL LIGHT IN REACH.
--- NOTE | 2022-12-18 12:44 | NUR ---
RN IN ROOM TO ADMINISTER INSULIN COVERAGE. PT SITTING UP IN BED FEEDING SELF. DENIES NEEDS. CALL LIGHT IN REACH.
--- NOTE | 2022-12-18 12:50 | NUR ---
RN IN ROOM ROUNDING WITH MD - PT SITTING UP IN CHAIR EATING LUNCH. PT NOT HAVING ANY DIFFICULTY SWALLOWING OR COUGHING AFTER EATING/DRINKING. SON UNDERSTANDS POC - ALL QUESTIONS ANSWERED.
[2022-12-18 14:17] VITALS: BP 152/87
--- NOTE | 2022-12-18 14:38 | NUR ---
RN IN ROOM TO ADMINISTER ABX AND ASSESS PT. PT DENIES COMPLAINTS CURRENTLY. EXTREMETY DRESSING C/D/I. EXW IN LOWER LEFT LUNG FIELD, OTHERWISE DIM/CLEAR. PT DENIES FURTHER NEEDS. CALL LIGHT IN REACH.
--- NOTE | 2022-12-18 17:59 | NUR ---
pt up to chair to eat dinner, watching tv. insulin coverage administered. call light in reach.
[2022-12-18 18:02] VITALS: BP 147/81
--- NOTE | 2022-12-18 19:51 | NUR ---
RECEIVED REPORT FROM DAY SHIFT RN. PATIENT IS RESTING IN RECLINER WITH EYES CLSOED, RR 17. CALL LIGHT IN REACH.
[2022-12-18 20:54] VITALS: BP 165/73
--- NOTE | 2022-12-18 20:55 | NUR ---
PATIENTS VITALS TAKEN AND RECORDED. PATIENT JESU XFERED FROM CAHIR TO BED. PATIENT INCONT OF URINE. PATIENTS ATTEND CHANGED, JEREMY CARE COMPELTED AND NEW PUREWICK PUT IN PLACE. PATIENTS CALL LIGHT AND BELONGINGS ARE WITHIN REACH. PATIENT DENIES ANY FURTHER NEEDS. CALL LIGHT IN REACH.
--- NOTE | 2022-12-18 22:00 | NUR ---
PATIENTS BP AND HR TAKEN AND RECORDED. PATIENTS PM MEDS GIVEN PER ORDER. PATIENT RATES PAIN AT A 2/10 AND DENIES THE NEED FOR INTERVENTION AT THIS TIME. PATIENTS DRESSIING ON RLE IS C/D/I. PATIENT IS ON 2L VIA NC. PATIENT REPOSITIONED IN BED. PATIENT COMTINUES TO HAVE PUREWICK IN PLACE. FRESH ICE WATER PROVIDED. ABX INFUSING PER ORDER. PATIENT DENIES ANY SOB. PATIENT DENIES ANY FURTHER NEEDS. CALL LIGHT AND BELONGINGS ARE WITHIN REACH.
--- NOTE | 2022-12-19 00:20 | NUR ---
PATIENT REPORTS SOB. PATIENT REPOSITIONED IN BED. PATIENT IS ON 2L VIA NC. RT IN ROOM TO ADMIN NEB TX. PATIENT IS 96% ON 2L VIA NC. CALL LIGHT IN REACH.
--- NOTE | 2022-12-19 02:02 | NUR ---
PATIENT IS RESTING IN BED WITH EYES CLOSED, RR 18. CALL LIGHT IN REACH. PATIENT IS ON 2L VIA NC.
--- NOTE | 2022-12-19 04:14 | NUR ---
PATIENT REPORTS BEING UNCOMFORTABLE IN BED. PATIENT JESU XFERED TO RECLINER. PATIENT DENIES ANY FURTHER NEEDS. CALL LIGHT AND BELONGINGS ARE WITHIN REACH.
[2022-12-19 05:30] VITALS: BP 152/85
[2022-12-19 05:45] LABS: BASOPHILS 0.4 % (0-2); HEMOGLOBIN 8.9 g/dL (12.0-18.0)
[2022-12-19 05:50] LABS: EOSINOPHILS 2.4 % (0-6); HEMATOCRIT 26.4 % (35.0-50.0); LYMPHOCYTES 11.1 % (24-44); MCH 29.5 (27-36); MCHC 33.7 g/dl (30-36); MCV 87.6 fl (81-99); MONOCYTES 5.6 % (0-12); NEUTROPHILS 80.5 % (39-80); PLATELET COUNT 468 K/uL (140-440); RBC 3.02 M/ul (4.3-5.7); RDW 16.1 (10.5-15.0)
--- NOTE | 2022-12-19 05:58 | NUR ---
PATIENTS VITALS TAKEN AND RECORDED. NEW PUREWICK PLACED. PATIENTS ATTEND IS DRY AT THIS TIME. PATIENTS IV INFUSION PAUSED FOR 5MIN, MIDLINE FLUSHED WITH 10ML, 5ML OF BLOOD WASTED, 10ML OF BLOOD DRAWN AND PLACED IN APPROPRIATED TUBES, MIDLINE FLUSHED WITH 5ML OF NS, AND IV INFUSING PER ORDER. PATIENTS BLOOD SENT TO LAB. INTAKE AND OUTPUT RECORDED. AM IV ABX INFUSING PER ORDER. PATIENTS LUNG SOUNDS REMAINS CLEAR AND DIM THROUGHTOUT. PATIENT RATES PAIN AT A 4/10. PATIENT REPOSITIONED IN RECLINER. PATIENT PROVIDED FRESH ICE WATER. PATIENT REMAINS ON 2L VIA NC. PATIENT DENIES ANY FURTHER NEEDS. CALL LIGHT AND BELONGINGS ARE WITHIN REACH.
[2022-12-19 06:11] LABS: ALBUMIN 1.7 g/dL (3.4-5.0); ALBUMIN/GLOBULIN RATIO 0.35 (1.1-2.4); ANION GAP 10.7 (7-21); BILIRUBIN, TOTAL 0.3 ng/dL (0.2-1.0); BUN/CREATININE RATIO 33.97 (6.0-28.6); CALCIUM 9.3 mg/dL (8.5-10.1); CREATININE, SERUM 2.59 mg/dL (0.55-1.02); POTASSIUM 3.7 mmol/L (3.5-5.1); PROTEIN, TOTAL 6.5 g/dL (6.4-8.2)
--- NOTE | 2022-12-19 07:25 | NUR ---
RECEIVED REPORT FROM COIL TIER RN. PATIENT IS SLEEPING UPRIGHT IN THE RECLINER.
--- NOTE | 2022-12-19 09:40 | NUR ---
PATIENT MOVED INTO THE RECLINER WITH THE JESU LIFT. NOW SITTTING UP RIGHT IN RECLINER. LUNGS SOUNDS CLEAR BUT DIMINSHED IN THE RIGHT AND LEFT LOWER LUNG LOBES. PATIENT ON 2 LITERS O2. ON AUSCULTATION OF CARDIAC ASSESSMENT NORMAL S1 AND S2 SOUNDS HEARD WITH A NORMAL RATE AND RHYTHM. UPPER EXTREMITY BILATERAL STRENGTH EQUAL WHEN SHE WAS GRIPPING MY FINGERS. MIDLINE DRESSING WAS CLEAR, DRY, AND INTACT. RIGHT LOWER EXTREMITY WAS WARM TO THE TOUCH AND THE SEEN EDEMA WAS WITHIN THE PREVIOUSLY MARKED AREA. A FEW SCABS NOTED ON THE GRAY WITH NO DRAINAGE. PUREWICK CHANGED. PATIENT HAD A BOWEL MOVEMENT AND MIRALAX AND SENNOKOT WERE HELD. PATIENT STATED NO FURTHER NEEDS AT THIS TIME. CALL LIGHT AND PERSONAL BELONGINGS ARE WITHIN REACH.
--- NOTE | 2022-12-19 10:30 | NUR ---
PATIENT HOYERED INTO A SHOWER CHAIR. PATIENT HAD A BOWEL MOVEMENT. PATIENT GOT A SHOWER AND THE ROOM WAS CLEANED. PT ASSISTED WITH TRANSFERS AND ENCOURAGED THE PATIENT TO LIFT ARMS AND DO THINGS INDEPENDENTLY. PATIENT WAS DRIED OFF AND HER HAIR WAS BRAIDED. PATIENT THEN TRANSFERRED BACK TO THE RECLINER BY JESU LIFT. DESENEX POWDER APPLIED. PUREWICK AND CONTINUOUS O2 WAS REAPPLIED. PATIENT STATED NO FURTHER NEEDS AT THIS TIME. CALL LIGHT AND PERSONAL BELONGINGS ARE WITHIN REACH.
--- NOTE | 2022-12-19 12:35 | NUR ---
PATIENT SITTING UPRIGHT AND IN THE RECLINER. PATIENT IS ON 2L NASAL CANNULA. NS AT 100 ML/HR STARTED. INSULIN HUMALOG 5 UNITS ADMINISTERED IN THE RIGHT ARM. PATIENT STATED NO FURTHER NEEDS AT THIS TIME. CALL LIGHT AND PERSONAL BELONGINGS ARE WITHIN REACH.
--- NOTE | 2022-12-19 14:30 | NUR ---
PATIENT DRESSING CHANGE ON RIGHT FOOT COMPLETE AT 1430. PATIENT STATED NO PAIN THROUGHOUT THE DRESSING CHANGE. WOUND EDGES INTACT AND THE SKIN WAS DRY AND WARM. DRESSING CHANGE REAPPLIED FOLLOWING DR. ANDINO ORDERS. LIDOCAINE APPLIED ON THE UPPER BACK DUE TO THE FIRST LIDOCAINE PAIN RELIEF PATCH COMING OFF IN THE SHOWER THIS MORNING. ZOSYN ADMINISTERED BY JIGAR SMITH RN. PATIENT STATED NO FURTHER NEEDS AT THIS TIME. CALL LIGHT AND PERSONAL BELONGINGS ON SIDE TABLE ARE WITHIN REACH.
[2022-12-19 14:35] VITALS: BP 178/74
[2022-12-19 18:18] VITALS: BP 152/84
--- NOTE | 2022-12-19 19:05 | NUR ---
REPORT RECEIVED FROM OFFGOING RN'S CATHY.
[2022-12-19 20:23] VITALS: BP 152/75
--- NOTE | 2022-12-19 20:43 | NUR ---
PT ASSESSMENT COMPLETE. PT UTILIZES CALL LIGHT, REQUESTS TO GO BACKT O BED. PT HOYERED TO BED WITH 2 PA. PT TOLERATED WELL. PT DENIES PAIN OR NAUSEA. REPORTS SLIGHT SOB, STATES THAT SHE BELIEVES THIS IS DUE TO RUNNY NOSE. PT REPORTS OCCASIONAL DRY COUGH, NOT NOTED DURING ASSESSMENT. LUNG SOUNDS CLEAR THROUGHOUT ALL LUNG FELIX, DIM IN BILATERAL BASES. O2 PRESENT AT 1.5 LPM VIA NC. DRESSING TO RLE C/D/I. PT REPORTS NUMBNESS AND TINGLING CHONIC TO ALL EXTREMITIES. MIDLINE FLUSHED WITH 10 ML NS, BRISK BLOOD RETURN NOTED, IVF INFUSING ORDERED. EXTERNAL CATH CHANGED AT THIS TIME. NEW ATTENDS PLACED. PT DENIES FURTHER NEEDS AT THIS TIME. CALL LIGHT IN REACH.
--- NOTE | 2022-12-19 21:30 | NUR ---
CALL LIGHT ANSWERED. PATIENT STATED "IM COLD". WARM BLANKET PROVIDED. NO OTHER NEEDS AT THIS TIME.
--- NOTE | 2022-12-19 22:20 | NUR ---
STNA TO ROOM FOR SCHEDULED MEDICATION ADMINISTRATION. PT REQUETS ASSISTANCE TO CHANGE POSITION. DENIES FURTHER NEEDS AT THIS TIME. CALL LIGHT IN REACH.
--- NOTE | 2022-12-19 22:42 | NUR ---
PT UTLIZES CALL LIGHT, REQUESTS TO BE REPOSITIONED. PT TURNED TO R SIDE AND PROPPED WITH PILLOW BEHIND BACK. PT DENIES FURTHER NEEDS AT THIS TIME. CALL LIGHT IN REACH.
--- NOTE | 2022-12-20 01:03 | NUR ---
PATIENT IS IN BED IN A CHAIR-SITTING POSITION.
--- NOTE | 2022-12-20 02:11 | NUR ---
PT ROUNDING. PT RESTING IN BED WITH EYES CLOSED. RESPIRATIONS EVEN AND UNLABORED. SA02 98 %. PT DOES NOT WAKE WHILE ASSISTANT PROFESSOR SCULPTURE AT DOORWAY. CALL LIGHT IN REACH.
--- NOTE | 2022-12-20 03:34 | NUR ---
PT UTILIZES CALL LIGHT, REQUESTS TO BE REPOSITIONED. PT'S HEAD OF BED DECREASED. PT STATES THIS IS BETTER. DENIES FURTHER NEEDS. CALL LIGHT IN REACH.
[2022-12-20 04:11] VITALS: BP 148/82
--- NOTE | 2022-12-20 04:30 | NUR ---
PT ASSESSMENT COMPLETE. PT ASKS TO TRANSFER TO HER CHAIR. HOYERED WITH 2PA. PT TOLERATED WELL. PT STATES THAT PAIN AND NAUSEA ARE WELL CONTROLLED AT THIS TIME. PT STATES THAT SHE IS SOB, UNCHANGED FROM EARILER. SA02 94% ON 1.5 LPM VIA NC. LUNG SOUNDS CLEAR BUT DIMINISHED IN ALL LUNG FELIX. PT WITH OCCASIONAL DRY NON PRODUCTIVE COUGH PRESENT DURING ASSESSMENT. DRESSING TO RLE C/D/I. MIDLINE FLUSHED WITH 10 ML NS. BRISK BLOOD RETURN NOTED. PT'S PERSONAL ITEMS LEFT WITHIN REACH. PT DENIES FURTHER NEEDS AT THIS TIME. CALL LIGHT IN REACH.
--- NOTE | 2022-12-20 06:00 | NUR ---
UMBRELLA TIPPER MACHINE TO ROOM FOR LAB DRAW FROM MIDLINE. PT RESTING IN CHAIR WITH EYES CLOSED. PT WAKES EASILY TO VOICE AND TOUCH. PT TOLERATED BLOOD DRAW WELL. PT ASSISTED TO REPOSITION WITH PILLOW UNDER R HIP. DENIES FURTHER NEEDS AT THIS TIME. PERSONAL ITEMS AND CALL LIGHT IN REACH.
[2022-12-20 06:11] LABS: EOSINOPHILS 3.1 % (0-6)
[2022-12-20 06:13] LABS: BASOPHILS 0.8 % (0-2); HEMATOCRIT 26.8 % (35.0-50.0); HEMOGLOBIN 8.8 g/dL (12.0-18.0); LYMPHOCYTES 12.6 % (24-44); MCH 29.5 (27-36); MCV 89.6 fl (81-99); MONOCYTES 6.6 % (0-12); NEUTROPHILS 76.9 % (39-80); PLATELET COUNT 435 K/uL (140-440); RBC 2.99 M/ul (4.3-5.7); RDW 16.5 (10.5-15.0)
[2022-12-20 06:21] LABS: ANION GAP 9.7 (7-21); BUN/CREATININE RATIO 37.19 (6.0-28.6); CALCIUM 9.4 mg/dL (8.5-10.1); CREATININE, SERUM 2.42 mg/dL (0.55-1.02); POTASSIUM 3.7 mmol/L (3.5-5.1)
--- NOTE | 2022-12-20 07:24 | NUR ---
RECIEVED REPORT FROM NURSE. PT IS CURRENTLY SITTING UP IN CHAIR WATCHING TV. NO OTHER CARES ARE NEEDED AT THIS TIME. CALL LIGHT WITHIN REACH
--- NOTE | 2022-12-20 09:48 | NUR ---
PT STATES THAT BACK IS IN PAIN IN HER BACK AND BUTTOCKS AT A RATING OF 6. LIDOCAIN PATCH WAS APPLIED. PT ASKED TO USE THE RESTROOM AND HAD A BM. CARES PROVIDED. PT IS CURERENTLY SITTING UP IN HER CHAIR ON HER PHONE. NO OTHER CARES ARE NEEDED OR REQUESTED AT THIS TIME CALL LIGHT WITHIN REACH
--- NOTE | 2022-12-20 10:30 | NUR ---
SPOKE WITH BEATRIZ AT [facility], [facility] TO TRANSFER PATIENT WHEN DISCHARGED.
--- NOTE | 2022-12-20 10:57 | NUR ---
pt is currently laying back in chair and watching tv. when asked if she needed anything pt stated she was ok and would let meknow if i needed anything. call light within reach
--- NOTE | 2022-12-20 11:00 | NUR ---
PER DR. MAHMOOD AFTER ROUNDING ON PATIENT SHE WOULD FEEL MORE COMFORTABLE DISCHARGING TOMORROW. BEATRIZ AT [facility] NOTIFIED. OKAY FOR ADMISSION TOMORROW PREFERABLY BEFORE 10 AM. ORDERS PRINTED AND MD NOTIFIED.
--- NOTE | 2022-12-20 13:19 | NUR ---
PT ADMITTED TO MOMENTS OF DISCOURAGEMENT AND FRUSTRATION. GAVE ENCOURAGEMENT AND REMINDED PT OF GOALS. PT CONSENTED TO PRAYER. GAVE THANKS FOR HEALING AND OPPORTUNITIES FOR SABIANISM. PRAYED FOR PATIENCE AND PERSEVERENCE.
[2022-12-20 14:13] VITALS: BP 151/89
--- NOTE | 2022-12-20 14:15 | NUR ---
IN FOR PT VS AND I/O. PT IS UP IN THE CHAIR, RESTING WITH EYES CLOSED, EASILY AWAKENED TO VOICE. PT WATCHING TELEVISION. DENIES NEEDS AT THIS TIME. CALL LIGHT IN REACH.
--- NOTE | 2022-12-20 15:39 | NUR ---
PT REQUESTED TO HAVE O2 PUT ON. CURRENT STATS ON RA WERE 89-90. PUT PT ON 1L NC AND STATS ARE READING 95. NO OTHER CARES NEEDED OR REQUESTED AT THIS TIME CALL LIGHT WITHIN REACH
--- NOTE | 2022-12-20 17:54 | NUR ---
PATIENT HAD PT TODAY BUT HAD DIFFICULTY STANDING ON HER OWN THIS NURSE AND THERAPIST USED A JESU LIFT TO HELP HER STAND. SHE COULDNT TOLERATE STANDING LONGER THAN 5 SECS BUT SHE ATTEMPTED TWICE. PT O2 STATS WERE AT 89% ON RA BUT PATIENT REQUESTED SOME O2 SO THIS NURSE PUT HER ON 1L AND HER STATS AVA TO 95%. pATIENT HAS BEEN IN HER CHAIR MOST OF THE DAY. PT TRIES TO DO SOME EXCERCISES TO HELP HER STIFF RIGHT HAND.TOLERATED MEDICATIONS WELL.
[2022-12-20 18:30] VITALS: BP 154/67
--- NOTE | 2022-12-20 18:33 | NUR ---
PATIENT SITTING UP IN CHAIR WATCHING TV. VITALS AND I&O'S CHARTED. CALL LIGHT IN REACH. NO FURHTER NEEDS AT THIS TIME.
--- NOTE | 2022-12-20 19:15 | NUR ---
REPORT RECEIVED FROM OFFGOING RNS TRACY
--- NOTE | 2022-12-20 19:35 | NUR ---
pt had dressing changed by this RN. no abnormal findings.
[2022-12-20 20:39] VITALS: BP 150/79
--- NOTE | 2022-12-20 20:40 | NUR ---
PT ASSESSMENT COMPLETE. PT UP IN CHAIR, STATES THAT SHE IS READY TO GO TO BED FOR A WHILE. PT HOYERED TO THE BED WITH 2PA. PT TOLERATED WELL. PT DENIES PAIN, NAUSEA, OR SOB. SA02 96% ON 0.5 LPM O2. LUNG SOUNDS CLEAR/DIM THROUHGOUT. PT WITH OCCASIONAL DRY COUGH DURING ASSESSMENT. DRESSING TO RLE C/D/I. MIDLINE FLUSHED WITH 10 ML NS, WNL, BRISK BLOOD RETURN NOTED. IVF INFUSING ORDERED. ATTENDS AND PUREWICK CHANGED AT THIS TIME. PT DENIES FURTHER NEEDS. CALL LIGHT IN REACH.
--- NOTE | 2022-12-20 20:56 | NUR ---
ASSISTED PRIMARY RN SHAUNA. PATIENT TRANSFERRED FROM CHAIR TO BED USING OVERHEAD JESU LIFT. PANNUS/JEREMY AREA CARE DONE. PLACED NEW PUREWICK. ICE CHIPS PROVIDED. BLOOD SUGAR CHECK DONE AND RECORDED. NO FURTHER NEEDS AT THIS TIME.
--- NOTE | 2022-12-20 21:30 | NUR ---
CLOTH BLEACHING SUPERVISOR TO ROOM FOR SCHEDULED MEDICATION ADMIN. PT REQUESTS TO BE REPOSITIONED, PT PROPPED TO L SIDE WITH PILLOW UNDER HER HIP. PT DENIES FURTHER NEEDS AT THIS TIME. CALL LIGHT IN REACH.
--- NOTE | 2022-12-20 23:30 | NUR ---
PT ROUNDING. PT RESTING IN BED WITH EYES CLOSED. RESPIRATIONS EVEN AND UNLABORED. SAO2 95% ON 0.5 LPM. PT DOES NOT WAKE WHILE WRTIER IN DOORWAY. CALL LIGHT IN REACH.
--- NOTE | 2022-12-21 00:05 | NUR ---
PT UTILIZES CALL LIGHT, REQUESTS TO BE REPOSITIONED. PT MOVED UP IN BED. PROPPED WITH PILLOWS. PT REPORTS INCREASE IN FEELING SOB. REQUESTS O2 BE INCREASED. SA02 94% ON 0.5 LPM, INCREASED TO 1. SA02 TO 96%. ICE WATER REFILLED. FURTHER NEEDS DENIED. CALL LIGHT IN REACH.
--- NOTE | 2022-12-21 01:10 | NUR ---
PT ROUNDING. PT STATES THAT HER R FOOT IS ACHING. COBAN WRAP OVER GAUZE REPLACED. PT AGREES COBAN WAS TOO TIGHT. DENIES FURTHER NEEDS AT THIS TIME. CALL LIGHT IN REACH.
--- NOTE | 2022-12-21 01:56 | NUR ---
PT UTILIZES CALL LIGHT, REQUESTS HOB BE PUT DOWN. STATES THAT FOOT FEELS BETTER AFTER COBAN LOOSENED. PT STATES SHE IS GOING TO TRY TO GET SOME SLEEP. DENIES FURTHER NEEDS.
--- NOTE | 2022-12-21 03:55 | NUR ---
PT ASSESSMENT COMPLETE. PT UTILIZES CALL LIGHT, REQUESTS TO BE REPOSITIONED. PT PROPPED WITH PILLOWS, STATES THAT SHE IS MORE COMFORTABLE. LUNG SOUNDS CLEAR AND DIMINISHED THROUHGOUT. SAO2 96% ON 1 LPM VIA NC. NO COUGH NOTED DURING ASSESSMENT. DRESSING TO R FEET C/D/I. IVF INFUSING ORDERED. ATTENDS AND PUREWICK IN PLACE. PT DENIES FURTHER NEEDS AT THIS TIME CALL LIGHT IN REACH.
--- NOTE | 2022-12-21 03:56 | NUR ---
PROCESS DESIGNER TO ROOM FOR IV PUMP ALARMING. PT REQUESTS HOB LOWERED. DENIES FURTHER NEEDS AT THIS TIME. CALL LIGHT IN REACH.
[2022-12-21 05:49] VITALS: BP 163/83
--- NOTE | 2022-12-21 06:12 | NUR ---
PHYSICS INSTRUCTOR AND VICE PRESIDENT OF FINANCE TO ROOM FOR AM VITALS. PT REQUESTS TO TRANSFER TO THE CHAIR. PT HOYERED TO CHAIR. TOLERATED WELL. AM BLOOD DRAW OBTAINED FROM MIDLINE. SCHEDULED MEDICATIONS ADMINISTERED ORDERED. PT DENIES FURTHER NEEDS AT THIS TIME. CALL LIGHT IN REACH.
[2022-12-21 06:16] LABS: HEMATOCRIT 28.3 % (35.0-50.0); HEMOGLOBIN 9.4 g/dL (12.0-18.0); MCH 29.6 (27-36); MCHC 33.1 g/dl (30-36); MCV 89.6 fl (81-99); PLATELET COUNT 448 K/uL (140-440); RBC 3.16 M/ul (4.3-5.7); RDW 16.9 (10.5-15.0)
[2022-12-21 06:32] LABS: ALBUMIN/GLOBULIN RATIO 0.43 (1.1-2.4); BILIRUBIN, TOTAL 0.2 ng/dL (0.2-1.0); BUN/CREATININE RATIO 38.11 (6.0-28.6); CALCIUM 9.2 mg/dL (8.5-10.1); CREATININE, SERUM 2.23 mg/dL (0.55-1.02); PROTEIN, TOTAL 6.7 g/dL (6.4-8.2)
[2022-12-21 06:40] LABS: BANDS, MANUAL DIFF 6; LYMPHOCYTES, MANUAL DIFF 15; MONOCYTES, MANUAL DIFF 3; NEUTROPHILS, MANUAL DIFF 76
[2022-12-21 06:41] LABS: BASOPHILS, MANUAL DIFF 0; EOSINOPHILS, MANUAL DIFF 0
--- NOTE | 2022-12-21 07:07 | NUR ---
PT REPORT RECEIVED FROM HARDIK VILLATORO. PT IS UP IN CHAIR, A&O X4, DENIES NEEDS AT THIS TIME. POSSIBLY D/C TODAY TO [facility].
[2022-12-21] MEDS ORDERED: LINEZOLID600 MG PO (07:55)
[2022-12-21 08:15] VITALS: BP 153/76
--- NOTE | 2022-12-21 08:21 | NUR ---
IN FOR MED ADMINISTRATION. PT IS AWAKE, ALERT AND ORIENTED, STATES SHE IS IN PAIN, 6 OUT OF 10, "ALL OVER". LIDOCAINE PATCH PLACED MID UPPER BACK SUPERIOR TO C-SPINE AT PT'S REQUEST. PT DECLINES MIRALAX AND SENNA. PT IS WATCHING TELEVISION, DENIES FURTHER NEEDS AT THIS TIME. CALL LIGHT IN REACH.
--- NOTE | 2022-12-21 09:20 | NUR ---
JOHN Midline dressing change performed using proper sterile technique. Midline site was noted to be WDL, no erythema, no pain. Circumference was measured at 45cm. Patient Harriett stated well, no discomfort, and denied any needs or concerns.
--- NOTE | 2022-12-21 10:29 | NUR ---
ORDERS AND DC SUMMARY FAXED TO [facility] . [facility] AR[facility]ANGED, [facility] WILL BE HERE TO TRANSPORT PATIENT TOMASZ. RENAY DIXON RN AND BEATRIZ AT [facility] NOTIFIED.
--- NOTE | 2022-12-21 11:50 | NUR ---
PC TO [facility] AND [facility]. REPORT GIVEN TO HARDIK PETERSON. QUESTIONS ANSWERED.
== END 2022-12-21 11:11 | DRG 854 ==
LOC: ED 16:23 → MS 22:02
PROVIDERS: Emergency Medicine; Family Medicine; Podiatrist Foot Surgery; ADMIT Family Medicine; ATTEND Internal Medicine
PROC: 3E03329 Introduction of Other Anti-infective into Peripheral Vein, Percutaneous Approach (ICD-10-PCS; 2022-12-09)
PROC: 0QBN0ZZ Excision of Right Metatarsal, Open Approach (ICD-10-PCS; principal; 2022-12-14 07:00)
PROC: 3E0V329 Introduction of Other Anti-infective into Bones, Percutaneous Approach (ICD-10-PCS; principal; 2022-12-14 07:00)
PROC: 0Y6M0ZB Detachment at Right Foot, Partial 2nd Ray, Open Approach (ICD-10-PCS; principal; 2022-12-14 07:00)
DX: A41.9 Sepsis, unspecified organism (principal); I13.0 Hypertensive heart and chronic kidney disease with heart failure and stage 1 through stage 4 chronic kidney disease, or unspecified chronic kidney disease; L03.115 Cellulitis of right lower limb; M86.8X7 Other osteomyelitis, ankle and foot; M62.82 Rhabdomyolysis; N17.9 Acute kidney failure, unspecified; T36.8X5A Adverse effect of other systemic antibiotics, initial encounter; K72.90 Hepatic failure, unspecified without coma; M79.601 Pain in right arm; E11.621 Type 2 diabetes mellitus with foot ulcer; L97.514 Non-pressure chronic ulcer of other part of right foot with necrosis of bone; E11.22 Type 2 diabetes mellitus with diabetic chronic kidney disease; N18.30 Chronic kidney disease, stage 3 unspecified; F31.9 Bipolar disorder, unspecified; I50.9 Heart failure, unspecified; J44.9 Chronic obstructive pulmonary disease, unspecified; E11.42 Type 2 diabetes mellitus with diabetic polyneuropathy; E78.5 Hyperlipidemia, unspecified; E87.6 Hypokalemia; Z88.5 Allergy status to narcotic agent; Z88.1 Allergy status to other antibiotic agents; Z88.2 Allergy status to sulfonamides; Z89.612 Acquired absence of left leg above knee; Z89.411 Acquired absence of right great toe; Z79.02 Long term (current) use of antithrombotics/antiplatelets; Z79.899 Other long term (current) drug therapy; Z79.4 Long term (current) use of insulin
CPT/HCPCS: 36415; 36569; 71045; 73620; 73630; 73723; 80048; 80053; 81001; 82553; 83036; 83605; 83735; 85025; 85060; 85651; 86140; 87040; 87070; 87075; 87077; 87186; 87205; 87502; 88305; 88307; 88311; 94640; 94760; 94762; 96374; 96375; 97032; 97110; 97162; 97166; 97530; 97535; 99284-25; A9270; A9577; C1713; C1751; C9803; J0692; J0878; J1170; J1650; J1790; J1815; J2001; J2020; J2250; J2405; J2543; J2704; J2795; J3370; J7030; J7060; J7121; U0002

== ENCOUNTER 2023-03-04 10:49 | Inpatient (IN) | payer OTHER ==
[~2023-03-04] VITALS: Ht 170.2 cm; Wt 119.5 kg
[~2023-03-04 10:49] MED LIST changes: +LINEZOLID600 MG PO
[2023-03-04 11:36] LABS: BASOPHILS 0.7 % (0-2); EOSINOPHILS 1.3 % (0-6); HEMATOCRIT 34.9 % (35.0-50.0); HEMOGLOBIN 11.6 g/dL (12.0-18.0); LYMPHOCYTES 16.7 % (24-44); MCH 28.8 (27-36); MCHC 33.2 g/dl (30-36); MCV 86.7 fl (81-99); MONOCYTES 6.6 % (0-12); NEUTROPHILS 74.7 % (39-80); PLATELET COUNT 481 K/uL (140-440); RBC 4.02 M/ul (4.3-5.7); RDW 17.1 (10.5-15.0)
[2023-03-04 11:51] LABS: ALBUMIN/GLOBULIN RATIO 0.58 (1.1-2.4); ANION GAP 8.9 (7-21); BILIRUBIN, TOTAL 0.4 ng/dL (0.2-1.0); BUN/CREATININE RATIO 49.26 (6.0-28.6); CALCIUM 9.3 mg/dL (8.5-10.1); CREATININE, SERUM 2.03 mg/dL (0.55-1.02); POTASSIUM 2.9 mmol/L (3.5-5.1); PROTEIN, TOTAL 8.2 g/dL (6.4-8.2)
[2023-03-04 14:36] VITALS: BP 128/83
[2023-03-04] MEDS ORDERED: DOXYCYCLINE MO100 MG PO (15:16)
--- NOTE | 2023-03-04 16:00 | NUR ---
Spoke with Maria D. She cont. to live in [place] with her niece as her state paid cg. Pt gets 2 hrs of cg service per day. 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 Her R foot has had a draining wound for 3 months per Maria D. She is disabled and lives with her niece's family. She has family service caseworker through [facility] and gets food stamps. She has multiple pieces of DME, but states her shower transfer bench is broken. I will request a prescription and attempt to get her a new one. She plans on dc to home at this time, if she has to have further surgery on her foot she may need a SNF. If this happens, she would like to return to [facility] and rehab. She rehabed there after her last surgery and speaks very highly of them. Plan for dc to home at this time.
--- NOTE | 2023-03-04 16:00 | NUR ---
AT BEDSIDE TO DRESS PT WOUND. PT TOLERATED WELL. IV ABX RUNNING. PT HAS DENIES NEEDS ATT.
--- NOTE | 2023-03-04 16:41 | NUR ---
MED REC COMPLETE
--- NOTE | 2023-03-04 17:22 | NUR ---
I/O'S COMPLETED. PT ASSISTED WITH DENTURE CARE. IV ABX RUNNING. CALL LIGHT WITHIN REACH.
--- NOTE | 2023-03-04 18:30 | NUR ---
pt is a/o, respirations even and regular. pt is sitting up in bed eating dinner. iv abx running. dressing to rle is cdi. mri questionaire completed.
[2023-03-04 20:23] VITALS: BP 129/34
--- NOTE | 2023-03-04 20:28 | NUR ---
Patient watching TV, no complainats and denies discomfort, VSS, left foot dressing dry clean and intact. CMS intact. purewick in place leaked and linen change and new purewick applied.
--- NOTE | 2023-03-04 22:48 | NUR ---
Patient sleeping on and off. K level low and charge account identification clerk notified md and order for k rider given and infusing now.
[2023-03-05 01:23] VITALS: BP 116/58
--- NOTE | 2023-03-05 02:01 | NUR ---
Patient called, Incont. large amount of urine, Purewick suction was not working, Adjustments made and working now. pad and brief changed, Patients VSS, lower leg dressing intact, CMS without change, Patient comfortable, lights out and call light within reach.
[2023-03-05 05:30] VITALS: BP 124/85
--- NOTE | 2023-03-05 05:45 | NUR ---
Patient awake and watching TV. Had a wave of nausea that came and went. Feeling better now, VSS, Potassium rider complete, right lower leg dressing without change, CMS intact. Medicated for discomfort with 1 norco. lights are out and call light within reach.
[2023-03-05 05:56] LABS: BASOPHILS 0.4 % (0-2); HEMOGLOBIN 11.4 g/dL (12.0-18.0); LYMPHOCYTES 13.9 % (24-44); MCH 28.3 (27-36); MCHC 32.7 g/dl (30-36); MCV 86.6 fl (81-99); MONOCYTES 6.1 % (0-12); NEUTROPHILS 77.6 % (39-80); PLATELET COUNT 438 K/uL (140-440); RBC 4.04 M/ul (4.3-5.7); RDW 16.8 (10.5-15.0)
[2023-03-05 06:00] LABS: ANION GAP 13.1 (7-21); BUN/CREATININE RATIO 46.23 (6.0-28.6); CALCIUM 9.4 mg/dL (8.5-10.1); CREATININE, SERUM 1.99 mg/dL (0.55-1.02); POTASSIUM 3.1 mmol/L (3.5-5.1)
[2023-03-05 07:58] VITALS: BP 142/67
--- NOTE | 2023-03-05 09:44 | NUR ---
rounded on pt. pt is still off unit with MRI.
--- NOTE | 2023-03-05 11:40 | NUR ---
ASSISTED PT FROM BEDSIDE COMMODE TO BED. PT STANDS WELL AND PIVOTS WITH WALKER. PT DENIES NEEDS ATT. PUREWICK IN PLACE.
--- NOTE | 2023-03-05 12:15 | NUR ---
MEDICATION ADMINISTERED. PT IS RESTING COMFORTABLY. DENIES NEEDS ATT. DRESSING TO RLE CDI
--- NOTE | 2023-03-05 13:57 | NUR ---
PT ASSESSMENT AND MEDICATION ADMINISTRATION COMPLETED. PT IS RESTING COMFORTABLY IN BED. CALL LIGHT WITHIN REACH.
[2023-03-05 14:36] VITALS: BP 129/86
--- NOTE | 2023-03-05 16:29 | NUR ---
Patient reports she is incontinent. Charlene care done-new brief and pure wick replaced at this time. Patient reports nausea with movement, subsided after she was done moving about in bed. No further needs at this time.
--- NOTE | 2023-03-05 17:42 | NUR ---
PT C/O NAUSEA AND DRY HEAVING. VO RECEIVED FROM FOR ZOTYLER.
[2023-03-05 17:43] VITALS: BP 127/71
--- NOTE | 2023-03-05 18:03 | NUR ---
medication administration completed. i/o's complete. pt states nausea is resolving. pt did have one episode of emesis. call light within reach.
[2023-03-05 20:09] VITALS: BP 109/58
--- NOTE | 2023-03-05 20:13 | NUR ---
awake, using purewick , incon of urine, attends changed. fresh water given on contact isolation
--- NOTE | 2023-03-05 20:34 | NUR ---
pt had 250cc greenish, very thick phlegm mixed with undigested food. oral care done by self, primary RN Kristan notified. Pt received Zofran at 1800.
--- NOTE | 2023-03-05 20:54 | NUR ---
PT RESTING, EYES CLOSED, HOB ELEVATED, NO FURTHER C/O EMESIS
--- NOTE | 2023-03-06 00:06 | NUR ---
IV restarted after 3 tries by gas station supervisor Don DEY.RAC 20G. pt tolerated well. abx resstarted at this time. Fresh water given on request. turns and repositions self in bed
[2023-03-06 06:28] VITALS: BP 141/65
--- NOTE | 2023-03-06 07:50 | NUR ---
pt sitting up in bed watching tv at time of shift report. alert and interactive. dr Palomino in and does dressing change, discusses plan going forward at length all questions answered. pt denies pain or other discomforts. fresh h20 to bedside call light and needed items in reach
--- NOTE | 2023-03-06 08:34 | NUR ---
Patient in bed, acu check completed. pt has no other requests at this time. call light within reach.
--- NOTE | 2023-03-06 08:45 | NUR ---
PT CONTINUES UP IN BED TALKING ON THE PHONE AT THIS TIME REPORTING UPCOMING AMPUTATION TO FAMILY. PT IS A BIT TEARFUL, DENIES NEED OF CLERGY OR INTERVENTION. BREAKFAST IS AT BEDSIDE
--- NOTE | 2023-03-06 09:00 | NUR ---
PT UP TO THE CHAIR VIA JESU. BED LINENS CHANGED. PERSONAL CARE ITEMS PROVIDED
[2023-03-06 09:02] VITALS: BP 143/85
--- NOTE | 2023-03-06 10:33 | NUR ---
PT UP TO SHOWER CHAIR IS ABLE TO HAVE BM THEN RIGHT INTO SHOWER. PT POSITIONED SO SHE IS ABLE TO DO SELF CARE, STAFF ASSIST WITH DIFFICULT AREAS. WELL TOLERATED. PT RETURNS TO THE RECLINER WHERE SHE IS FINISHING SELF CARES, NEEDED ITEMS ARE IN REACH.
--- NOTE | 2023-03-06 11:29 | NUR ---
PT REMAINS UP IN THE CHAIR TALKING ON HER PHONE DENIES NEEDS AT THIS TIME
[2023-03-06 13:12] VITALS: BP 125/57
--- NOTE | 2023-03-06 14:40 | NUR ---
PT BACK TO THE BED FROM THE CHAIR PIVOT TRANSFER WELL DONE. FRESH H20 TO BEDSIDE CALL LIGHT IN LAP PT DENIES ANY OTHER NEEDS AT THIS TIME. DR EWING IN TO SEE PT FOOT RE-WRAPPED AND PLAN GOING FORWARD DISCUSSED AT LENGTH. ALL QUESTIONS ANSWERED
--- NOTE | 2023-03-06 16:13 | NUR ---
PT UP IN BED VISITING WITH NEPHEW QUESTIONS ANSWERED FURTHER NEEDS DENIED
[2023-03-06 17:08] VITALS: BP 132/78
--- NOTE | 2023-03-06 18:04 | NUR ---
PT UP IN THE BED EATING EVENING MEAL. IV ABX INFUSING. PT DENIES DISCOMFORTS OR NEEDS OF
[2023-03-06 20:58] VITALS: BP 131/68
--- NOTE | 2023-03-06 21:15 | NUR ---
PATIENT CALLED STATED "I'M WET". DID JEREMY CARE. CHANGED CHUX AND PLACED FRESH ATTENDS. CHANGED NEW PUREWICK. V/S AND I&O'S AND ACCU CHECK DONE AND RECORDED. PRIMARY WAS IN THE ROOM. ICE WATER PROVIDED.
--- NOTE | 2023-03-06 21:30 | NUR ---
FULL BODY ASSESSMENT COMPLETED. VS WNL. DRESSING TO R FOOT C/D/I, ELEVATED ON PILLOW. IV FLUSHES WELL, ANTIBIOTICS INFUSING. DENIES ANY PAIN. INCONTINENT OF URINE, CLEANSED JEREMY AND PROVIDED NEW PUREWIC. PATIENT ABLE TO ASSIST WITH CARES. PATIENT AAOX3. CALL LIGHT WITHIN REACH NO OTHER NEEDS AT THIS TIME.
--- NOTE | 2023-03-07 | NUR ---
PATIENT RESTING AT EDGE OF BED, WATCHING TV. DENIES ANY PAIN. NO NEEDS AT THIS TIME. CALL LIGHT WITHIN REACH.
--- NOTE | 2023-03-07 03:23 | NUR ---
PATIENT RESTING ON SIDE WITH EYES CLOSED, AWOKE WHEN THIS NURSE ENTERED ROOM. PATIENT REPORTED HAS BEEN ABLE TO GET BETTER SLEEP WITH NEW IV. PATIENT VOIDING WELL WITH PURE WIC IN PLACE. DRESSING TO FOOT C/D/I, ENCOURAGED PATIENT TO ELEVATE FOOT ON PILLOW. LUNG SOUNDS DIMINISHED, ENCOURAGED TO COUGH AND DEEP BREATHE.
[2023-03-07 05:12] VITALS: BP 125/79
--- NOTE | 2023-03-07 05:49 | NUR ---
STARTED NEW IV TO LEFT FA, INFUSING WELL. PATIENT SLEPT WELL THROUGHOUT THE NIGHT. ENCOURAGED PATIENT TO ELEVATE FOOT ON PILLOW, PATIENT ABLE TO PUT IT UP FOR SHORT TIME AND THEN PREFERS TO LAY IN POSTION. VS WNL. DRESSING C/D/I.
[2023-03-07 06:29] LABS: BASOPHILS 0.6 % (0-2); EOSINOPHILS 2.4 % (0-6); HEMATOCRIT 36.1 % (35.0-50.0); HEMOGLOBIN 11.8 g/dL (12.0-18.0); LYMPHOCYTES 16.8 % (24-44); MCH 28.2 (27-36); MCHC 32.7 g/dl (30-36); MCV 86.2 fl (81-99); MONOCYTES 8.2 % (0-12); PLATELET COUNT 398 K/uL (140-440); RBC 4.18 M/ul (4.3-5.7); RDW 16.7 (10.5-15.0)
[2023-03-07 06:40] LABS: ANION GAP 10.5 (7-21); BUN/CREATININE RATIO 47.61 (6.0-28.6); CALCIUM 9.5 mg/dL (8.5-10.1); CREATININE, SERUM 2.1 mg/dL (0.55-1.02); POTASSIUM 2.5 mmol/L (3.5-5.1)
--- NOTE | 2023-03-07 07:35 | NUR ---
PT RESTING EYES CLOSED AT TIME OF SHIFT REPORT, LEFT UNDISTURBED. AWAKE NOW TELE BEING PLACED. POTASSIUM ORDERED. FRESH H20 TO BED SIDE AND FRESH COFFEE
--- NOTE | 2023-03-07 09:18 | NUR ---
PT SITTING UPRIGHT IN BED TOLERATES MORNING MEAL WITHOUT C/O. DENIES PAIN OR DISCOMFORT. ABX INFUSING NEEDED ITEMS IN REACH
[2023-03-07 09:44] VITALS: BP 151/78
--- NOTE | 2023-03-07 09:49 | NUR ---
PATIENT SITTING UP IN BED WATCHING TV AND PLAYING ON PHONE. VITALS AND I&O'S CHARTED. CALL LIGHT IN REACH. NO FURTHER NEEDS AT THIS TIME.
--- NOTE | 2023-03-07 11:15 | NUR ---
DR HARO IN TO SEE PT DISCUSSES UPCOMING SURGERY ALL QUESTIONS ANSWERED.
[2023-03-07 11:52] LABS: ANION GAP 12.4 (7-21); BUN/CREATININE RATIO 43.51 (6.0-28.6); CALCIUM 9.4 mg/dL (8.5-10.1); CREATININE, SERUM 2.16 mg/dL (0.55-1.02); POTASSIUM 3.4 mmol/L (3.5-5.1)
[2023-03-07 11:58] LABS: VANCOMYCIN, TROUGH 38.3 ug/mL (5.0-20.0)
--- NOTE | 2023-03-07 13:31 | NUR ---
PT TRANSFERS TO BSC TO HAVE A BM, THEN BACK TO THE CHAIR. AGREES SHE IS COMFORTABLE WITH NEEDED ITEMS AT CHAIRSIDE.
[2023-03-07 14:09] VITALS: BP 129/75
--- NOTE | 2023-03-07 14:13 | NUR ---
PATIENT SITTING UP IN CHAIR WATCHING TV. VITALS AND I&O'S DONE AND CHARTED. CALL LIGHT IN REACH. NO FURTHER NEEDS AT THIS TIME.
--- NOTE | 2023-03-07 15:43 | NUR ---
PT UP IN THE CHAIR WATCHING TV, TALKING ON THE PHONE. STATES "IM FINE" DENIES NEEDS OF ANYTHING
--- NOTE | 2023-03-07 17:36 | NUR ---
PT CONTINUES UP IN THE CHAIR TALKING ON THE PHONE, DENIES NEEDS OF ANYTHING
[2023-03-07 18:49] VITALS: BP 144/72
--- NOTE | 2023-03-07 18:53 | NUR ---
PATIENT SITTING ON BED PLAYING ON PHONE. VITALS AND I&O'S DONE AND CHARTED. CALL LIGHT IN REACH. NO FURTHER NEEDS AT THIS TIME.
--- NOTE | 2023-03-07 19:24 | NUR ---
REPORT RECEIVED FROM DAY SHIFT RN. PT LYING IN BED ALERT AND ORIENTED. DENIES NEEDS. WHITE BOARD UPDATED. CALL LIGHT IN REACH.
[2023-03-07 21:27] VITALS: BP 128/84
--- NOTE | 2023-03-07 22:09 | NUR ---
EVENING ASSESSMENT COMPLETE. SCHEDULED MEDS ADMIN PER EMAR. PT REPORTS RIGHT FOOT PAIN 10/21. PRN FOR PAIN ADMIN PER EMAR. DRESSING TO RIGHT FOOT CDI. REDNESS NOTED ON LOWER LEG, PT REPORTS "BEEN THERE FOR YEARS" ALSO REPORTS APPEARS TO BE IMPROVIDED. NEW PUREWICK PLACED AFTER JEREMY CARE. PT VOID QS CLEAR YELLOW URINE. PT ABLE TO REPOSITION SELF IN BED. PT DENIES QUESTIONS OR CONCERNS. CALL LIGHT IN REACH.
--- NOTE | 2023-03-08 01:39 | NUR ---
PT SITTING UP IN BED SCROLLING ON PHONE. REPORTS RIGHT FOOT PAIN TOLERABLE. IV ABX INFUSING WNL. NO NEEDS AT THIS TIME.
[2023-03-08 01:54] VITALS: BP 164/94
--- NOTE | 2023-03-08 04:16 | NUR ---
PT RESTING IN BED LYING ON RIGHT SIDE. RESPIRATIONS EVEN. CALL LIGHT IN REACH.
[2023-03-08 05:49] LABS: BASOPHILS 1.5 % (0-2); EOSINOPHILS 2.7 % (0-6); HEMATOCRIT 36.3 % (35.0-50.0); HEMOGLOBIN 12.2 g/dL (12.0-18.0); LYMPHOCYTES 17.6 % (24-44); MCH 28.8 (27-36); MCHC 33.4 g/dl (30-36); MCV 86.3 fl (81-99); MONOCYTES 7.6 % (0-12); NEUTROPHILS 70.6 % (39-80); PLATELET COUNT 442 K/uL (140-440); RBC 4.21 M/ul (4.3-5.7); RDW 16.4 (10.5-15.0)
[2023-03-08 05:52] VITALS: BP 134/69
[2023-03-08 06:00] LABS: ANION GAP 10.9 (7-21); BUN/CREATININE RATIO 47.39 (6.0-28.6); CALCIUM 9.8 mg/dL (8.5-10.1); CREATININE, SERUM 2.11 mg/dL (0.55-1.02); POTASSIUM 2.9 mmol/L (3.5-5.1)
--- NOTE | 2023-03-08 06:19 | NUR ---
PT AWAKE IN BED. VS AND I&O OBTAINED. NEW PUREWICK PLACED AFTER JEREMY CARE. DRESSING TO RIGHT FOOT CDI. PT REPORTS PAIN IS TOLERABLE AT THIS TIME. IV ABX INFUSING PER ODER. NO FURTHER NEEDS. CALL LIGHT IN REACH.
--- NOTE | 2023-03-08 07:15 | NUR ---
Report received from Loni DYE. Patient resting in bed, A+O, denies needs at this time. Call light in reach. Will continue plan of care.
--- NOTE | 2023-03-08 07:26 | NUR ---
Blood sugar checked, 308. Coffee with sugar substitute provided. PO potassium administered. Patient denies needs at this time. Call light in reach.
--- NOTE | 2023-03-08 08:08 | NUR ---
Transferred pt, 1PA, pivot, from bed to chair for breakfast. Pt sitting up in chair eating breakfast. Pt denies further needs. Call light in reach.
--- NOTE | 2023-03-08 08:35 | NUR ---
Scheduled medications administered, assessment complete. Pt c/o irritation to IV site, slight swelling noted, IV saline locked, weigh and charge worker notified and discussed new IV site placement options. Patient reports no further needs at this time. Pt is A+O, LSC, HRR, bowel tones active, purewick in place draining clear yellow urine. Skin grossly intact- RLE wrapped and C/D/I. Pt reports no pain at this time.
[2023-03-08 09:02] VITALS: BP 139/70
--- NOTE | 2023-03-08 10:37 | NUR ---
Assisting HARDIK Bazan with midline placement. IV Diflucan infusing WNL per order. Patient using purewick, WNL. No further needs at this time. Call light in reach.
--- NOTE | 2023-03-08 10:45 | NUR ---
SPOKE TO PATIENT ABOUT THE DC PLAN. PATIENT STATES HER FAMILY WANTS HER TO GO TO [place] WHEN MEDICALLY STABLE POST RIGHT LEG AMPUTATION.IF [place] DOES NOT HAVE A BED THE PATIENT WILL GO TO [facility]. WILL SEND MEDICAL RECORDS FOR SNF PLACEMENT.
--- NOTE | 2023-03-08 11:59 | NUR ---
Scheduled SS insulin administered. Lunch tray at bedside. Patient states no needs at this time, would like to nap after lunch.
[2023-03-08 12:18] LABS: VANCOMYCIN, TROUGH 26.2 ug/mL (5.0-20.0)
[2023-03-08 13:02] VITALS: BP 132/76
--- NOTE | 2023-03-08 13:27 | NUR ---
Scheduled medications administered. Extended infusion cefepime infusing WNL. Torsemide administered. Pt resting in bed with eyes closed after taking pills. No further needs at this time.
--- NOTE | 2023-03-08 15:27 | NUR ---
Changed pt purewick and performed rocco care. Pt sitting up in bed watching tv. Denies further needs at this time. Call light in reach.
--- NOTE | 2023-03-08 17:10 | NUR ---
SS insulin administered and Dr Santos notified per protocol for high CBG. IV saline locked. Patient eating dinner, states no needs. Call light in reach
[2023-03-08 17:39] VITALS: BP 129/72
--- NOTE | 2023-03-08 19:36 | NUR ---
REPORT RECEIVED FROM DAY SHIFT RN. PT LYING IN BED ALERT AND ORIENTED. DENIES NEEDS. WHITE BOARD UPDATED. CALL LIGHT IN REACH.
[2023-03-08 21:51] VITALS: BP 125/73
--- NOTE | 2023-03-08 22:00 | NUR ---
V/S AND I&O'S AND BLOOD SUGAR CHECK OBTAINED AND CHARTED. PATIENT'S WET ATTENDS AND GOWN CHANGED JEREMY CARE DONE. FRESH PUREWICK PLACED.
--- NOTE | 2023-03-08 22:28 | NUR ---
EVENING ASSESSMENT COMPLETE. BLOOD SUGAR 398. MD NOTIFIED. NO NEW ORDERS AT THIS TIME. SSI ADMIN PER EMAR. SCHEDULED MEDS GIVEN. PT REPORTS RIGHT FOOT PAIN TOLERABLE, DENIES PRN WHEN OFFERED. RIGHT FOOT DRESSING CDI. DISCUSSED WITH MD RIGHT FOOT DRESSING CHANGES. ORDERS RECEIVED TO PLACE WOUND CONSULT. PICC LINE IN RIGHT UPPER ARM FLUSHED PER PROTOCOL. BRISK BLOOD RETURN NOTED. SITE WNL. IV ABX INFUSING PER ORDER. PT DENIES FURTHER NEEDS AT THIS TIME. CALL LIGHT IN REACH.
--- NOTE | 2023-03-08 23:33 | NUR ---
IV PUMP ALARMING. ISSUE RESOLVED. LIGHTS TURNED OUT PER REQUEST. NO FURTHER NEEDS.
--- NOTE | 2023-03-09 03:15 | NUR ---
PT LYING IN BED ON RIGHT SIDE. RESPIRATIONS EVEN. CALL LIGHT IN REACH.
[2023-03-09 04:42] VITALS: BP 106/58
--- NOTE | 2023-03-09 05:00 | NUR ---
VS AND I&O OBTAINED, WNL. NEW PUREWICK PLACED AFTER JEREMY CARE. PT DENIES RIGHT FOOT PAIN. DRESSING CDI. MORNING LABS DRAWN PER PROTOCOL. NO FURTHER NEEDS. CALL LIGHT IN REACH.
[2023-03-09 05:19] LABS: ANION GAP 13.2 (7-21); BUN/CREATININE RATIO 46.5 (6.0-28.6); CALCIUM 9.4 mg/dL (8.5-10.1); MAGNESIUM 1.9 mg/dL (1.8-2.4); POTASSIUM 3.2 mmol/L (3.5-5.1)
[2023-03-09 05:21] LABS: VANCOMYCIN, TROUGH 22.4 ug/mL (5.0-20.0)
[2023-03-09 06:48] LABS: BASOPHILS 1.3 % (0-2); EOSINOPHILS 1.8 % (0-6); HEMATOCRIT 36.3 % (35.0-50.0); HEMOGLOBIN 11.8 g/dL (12.0-18.0); LYMPHOCYTES 14.3 % (24-44); MCH 28.2 (27-36); MCHC 32.5 g/dl (30-36); MCV 86.7 fl (81-99); MONOCYTES 7.7 % (0-12); NEUTROPHILS 74.9 % (39-80); PLATELET COUNT 490 K/uL (140-440); RBC 4.19 M/ul (4.3-5.7); RDW 16.7 (10.5-15.0)
--- NOTE | 2023-03-09 07:19 | NUR ---
REPORT RECEIVED FROM PRODUCTION QUALITY MANAGER HARDIK MEDEROS. PATIENT IS SITTING UPRIGHT AT THE EDGE OF THE BED AND TALKING ON THE PHONE. PATIENT STATED NO FURTHER NEEDS AT THIS TIME. CALL LIGHT AND PERSONAL BELONGINGS ARE WITHIN REACH.
--- NOTE | 2023-03-09 09:00 | NUR ---
PATIENT 0800 AND 0900 MEDICATIONS ADMINISTERED PER THE EMAR. PATIENT PAIN IS NOW AT A 3/10 AFTER GETTING PAIN MEDICATION. PATIENT IS SITING UPRIGHT IN BED AND EATING BREAKFAST. PATIENT LUNG SOUNDS ARE CLEAR BILATERALLY IN ALL LUNG FELIX. NORMAL S1 AND S2 ON AUSCULTATION. CAPILLARY REFILL LESS THAN 3 SECONDS IN THE UPPER EXTREMITIES AND IN THE RIGHT LOWER EXTREMITY. RADIAL PULSES ARE STRONG BILATERALLY. PATIENT STATED HER NOSE BEING ITCHY. SHE STATES THIS HAPPENS AFTER TAKING ANY TYPE OF PAIN MEDICATION. RIGHT LOWER EXTREMITY IS DRY AND TRENA IN COLOR. DRESSING ON THE RIGHT FOOT IS CLEAN, DRY, AND INTACT. IV SITE FLUSHED WELL WITH 10 ML NORMAL SALINE. MIDLINE DRESSING WRAPPED WITH COBAN AFTER PATIENT STATED SHE WAS SCRATCHING AT THE DRESSING EARLY THIS MORNING. PATIENT STATED NO PAIN AT THE MIDLINE SITE. NUMBNESS AND TINGLING NOTED IN THE UPPER AND LOWER EXTREMITITES. PATIENT STATED THAT IS HER BASELINE. PATIENT STATED NO FURTHER NEEDS AT THIS TIME. CALL LIGHT AND PERSONAL BELONGINGS ARE WITHIN REACH.
[2023-03-09 09:35] VITALS: BP 118/54
--- NOTE | 2023-03-09 09:58 | NUR ---
IV infusions complete. Midline saline locked. Patient states mild itching to her nose and attributes it to "any time she takes pain medication", made plan to discuss with doctor when available. Patient denies further needs at this time, call light in reach.
--- NOTE | 2023-03-09 10:55 | NUR ---
SPOKE TO PATIENT ABOUT THE DISCHARGE PLAN. PATIENT PLANS TO GO TO SNF FOR POST-OP CARE AND REHAB. [facility] 1ST CHOICE. [facility] HAS RECIEVED A REFFERAL SNF CARE.
--- NOTE | 2023-03-09 12:12 | NUR ---
Assisted pt with shower. Pt showered mostly independantly but needed help reaching rocco area. Rocco care complete and changed purewick. Full linen change on bed. Pt returned to recliner and is eating lunch. Call light in reach. Pt denies further needs.
[2023-03-09 13:37] VITALS: BP 129/69
--- NOTE | 2023-03-09 17:31 | NUR ---
PATIENT WOUND CARE AND DRESSING CHANGE COMPLETE. DRAINAGE ON THE DRESSING WAS PURULENT. PATIENT TOLERATED WELL WITH NO PAIN. NEW DRESSING IN PLACE. TWO OPSITE PLACED ON EDGES OF THE MIDLINE DRESSING DUE TO IT PEELING UP FROM PATIENT SCRATCHING. PATIENT DINNER TRAY SET UP. PATIENT STATED NO FURTHER NEEDS AT THIS TIME. CALL LIGHT AND PERSONAL BELONGINGS ARE WITHIN REACH.
[2023-03-09 18:09] VITALS: BP 140/76
[2023-03-09 21:38] VITALS: BP 145/84
--- NOTE | 2023-03-09 22:03 | NUR ---
PATIENTS VITALS TAKEN AND RECORDED. PATIENTS ATTEND CHANGED AND JEREMY CARE COMPELTED. PATIENTS HAS PUREWICK IN PLACE. PATIENTS PM MEDS GIVEN PER ORDER. PATIENTS IV INFUSING PER ORDER. PATIENT PROVIDED WITH FRESH ICE WATER. PATIENT DENIES ANY PAIN. PATIENT DENIES ANY FURTHER NEEDS AT THIS TIME. PATIENTS CALL LIGHT AND BELONGINGS ARE WITHIN REACH.
--- NOTE | 2023-03-09 22:47 | NUR ---
pt awake, alert and oriented, sitting up in bed, c/o R foot pain, dressing intact. Medicated with 2 Percocet. c/o feeling anxious and nauseated from thinking about her R foot amputation. medicated with po Zofran at her request. IV K rider infusing RAC, coop with assessments. crackles auscultated. denies sob., ocassional dry cough present. using pureqick, draining yellow urine. Aware of NPO status after midnight
[2023-03-10] VITALS (7 sets, daily range): BP systolic 109–161; BP diastolic 52–74
--- NOTE | 2023-03-10 00:15 | NUR ---
RESTING, EYES CLOSED, NO FURTHER C/O OR S/SX PAIN OR N/V. MEDS EFFECTIVE. ABX INFUSING. MIDLINE INTACT/PATENT. R FOOT DRESSING INTACT. NPO FOR AM PROCEDURE
--- NOTE | 2023-03-10 01:58 | NUR ---
Awake, watching tv, no further c/o pain or n/v. abx and K rider IV infusing. calm and cooperative
--- NOTE | 2023-03-10 04:07 | NUR ---
pt attends were changed by abiola Rushing RN in place. she was reassured by Kristan Man as pt stated she was sad about her losing her other leg. comforted.
--- NOTE | 2023-03-10 05:02 | NUR ---
blood drawn and sent to lab
[2023-03-10 05:58] LABS: BASOPHILS 0.7 % (0-2); HEMATOCRIT 33.4 % (35.0-50.0); HEMOGLOBIN 11.1 g/dL (12.0-18.0); LYMPHOCYTES 22.2 % (24-44); MCH 28.8 (27-36); MCHC 33.2 g/dl (30-36); MCV 86.6 fl (81-99); NEUTROPHILS 66.1 % (39-80); PLATELET COUNT 370 K/uL (140-440); RBC 3.85 M/ul (4.3-5.7); RDW 16.5 (10.5-15.0)
[2023-03-10 05:59] LABS: ANION GAP 12.9 (7-21); CREATININE, SERUM 1.94 mg/dL (0.55-1.02); MAGNESIUM 1.8 mg/dL (1.8-2.4); POTASSIUM 3.9 mmol/L (3.5-5.1)
--- NOTE | 2023-03-10 07:15 | NUR ---
REPORT RECEIVED FROM VP PRODUCT MARKETING RN ARJUN. PATIENT IS AWAKE WITH COMPLAINTS OF DRY MOUTH. PATIENT GIVEN PACK OF SWABS. PATIENT STATED NO FURTHER NEEDS AT THIS TIME. PATIENT CALL LIGHT AND PERSONAL BELONGINGS ARE WITHIN REACH.
--- NOTE | 2023-03-10 08:35 | NUR ---
CALLED DOWN TO DAY SURGERY AND SPOKE WITH MCKENZIE ABOUT GIVING MEDICATIONS PRIOR TO SURGERY. CARVEDILOL ADMINISTERED PRIOR TO SURGERY. CALL ENDED.
--- NOTE | 2023-03-10 09:05 | NUR ---
MORNING MEDICATIONS ADMINISTERED PER THE EMAR. FULL ASSESSMENT COMPLETE AND DOCUMENTED IN THE CHART. PATIENT STATED NO PAIN AT THIS TIME. LUNG SOUNDS ARE CLEAR BILATERALLY IN ALL LUNG FELIX. HR IS REGULAR AND NORMAL S1 AND S2 AUSCULTATED. BOWEL TONES ACTIVE IN ALL FOUR QUADRANTS. PATIENT NPO AT THIS TIME FOR SURGERY. SWABS AT THE BEDSIDE TO HELP WITH KEEPING THE MOUTH MOIST. RADIAL PULSES STRONG AND CAPILLARY REFILL WAS LESS THAN 3 SECONDS IN THE UPPER EXTREMITIES AND THE RIGHT LOWER EXTREMITY. PATIENT STATED HAVING A LOT OF EMOTIONS IN REGARDS TO THE PROCEDURE. PATIENT REQUESTING TO SPEAK WITH ESCROW CLOSER AND BE PRAYED FOR PRIOR TO GOING TO SURGERY. MIDLINE DRESSING INACT. MIDLINE WITH CONTINUOS FLUIDS. DRESSING ON THE RIGHT FOOT IS CLEAN, DRY, AND INTACT. PATIENT STATED THEY CAN FEEL PRESSURE IN THE RIGHT LOWER EXTREMITY. RIGHT LOWER EXTREMITY WITH NIMBNESS AND TINGLING. PATIENT STATED NO FURTHER NEEDS AT THIS TIME. CALL LIGHT AND PERSONAL BELONGINGS ARE WITHIN REACH.
--- NOTE | 2023-03-10 09:30 | NUR ---
PT REQUESTED PRAYER BEFORE SURGERY. PT ADMITTED DISTRESS AND ANXIETY. FACILITATED PROCESSING OF CONCERNS; LISTENED EMPATETHETICALLY; ENCOURAGEED FOCUS ON PRESENT. EXPLORED ALTERNATIVES; PROVIDED ANTICIPATORY GUIDANCE; PROVIDED PRAYER. PT EXPRESSED HOPE, GRATITUDE, AND REDUCTION OF DISTRESS. 30 MINUTES.
--- NOTE | 2023-03-10 09:40 | NUR ---
NO VS ATT. PT OFF FLOOR TO SURGERY.
--- NOTE | 2023-03-10 11:53 | NUR ---
PATIENT HAS GONE TO THE OR FOR A BKA. FORENSIC MATERIALS ENGINEER WILL MONITOR PATIENT'S NEEDS FOR POST-OP CARE AND SNF PLACEMENT.
--- NOTE | 2023-03-10 13:55 | NUR ---
PATIENT RETURNED BACK TO THE FLOOR FROM PACU. GOT BEDSIDE REPORT FROM PRESSER AND BLOCKER KNITTED GOODSHARDIK HILL. VITAL SIGNS DOCUMENTED IN THE CHART. PATIENT ON 2 L NC AND CONNECTED TO BEDSIDE CPOX. LUNG SOUNDS CLEAR BUT DIMINISHED IN THE BASES BILATERALLY. NORMAL S1 AND S2 AUSCULTATED. RADIAL PULSES STRONG BILATERALLY. MIDLINE DRESSING IS CLEAN, DRY, AND INTACT. PATIENT STATED PAIN AT 7/10. CAPILLARY REFILL IN THE UPPER EXTREMITIES IS LESS THAN 3 SECONDS BILATERALLY. SURGICAL DRESSING IS CLEAN DRY AND INTACT. PATIENT GIVEN FRESH ICE WATER. PATIENT STATED NO FURTHER NEEDS AT THIS TIME. CALL LIGHT AND PERSONAL BELONGINGS ARE WTIHIN REACH.
--- NOTE | 2023-03-10 15:05 | NUR ---
SPOKE TO GAURAV AT [facility] ABOUT BED PLACEMENT AND SINCE PATIENT IS EOCC THE PATIENT WILL NEED AN AUTH. PRIOR BED PLACEMENT.
--- NOTE | 2023-03-10 15:13 | NUR ---
03/10/23 1513 CaoKristan 1240-PATIENT ARRIVES TO PACU ON 10L VIA MASK. PATIENT IS REACTIVE. PATIENT HAS OPA AND NPA IN PLACE. RESP EVEN AND UNLABORED. 1242-PATIENT IS REACTIVE, OPA AND NPA REMOVED. 1243-PATIENT RATES PAIN 9/10. DENIES NASUEA. ENCOURAGED PATIENT TO TAKE DEEP BREATHS. 1244-NUPUR FISHER GIVING IV TYLENOL. O2 TITRATED TO 6L VIA MASK. 1246-PATIENT IS DROWSY. RESP EVEN AND UNLABORED. NPA REMOVED. RATES PAIN 9/10, DENIES NAUSEA. ENCOURAGED PATIENT TO TAKE DEEP BREATHS. O2 TITRATED OFF. 1252-PATIENT WAS PLACED BACK ON 6L VIA MASK BY NUPUR FISHER. 1257-PATIENT IS DROWSY, RESP EVEN AND UNLABORED. HOB ELEVATED. RATES PAIN 9/10. PAIN MEDICATION GIVEN PER EMAR. 1259-TORADOL GIVEN PER VO FROM DR. EWING. 1300-TITRATED O2 OFF. O2 SATS IN THE HIGH 90'S ON RA. 1304-DR. EWING AT BEDSIDE TALKING WITH PATIENT. 1305-PATIENT RATES PAIN 9/10. NUPUR FISHER AT BEDSIDE TO DO BLOCK. PATIENT TAKING SIPS OF WATER. 1310-PATIENT DRINKING COFFEE. 1319-PATIENT SITTING UP IN BED. RESP EVEN AND UNALBORED. RATES PAIN 9/10. PAIN MEDICATION GIVEN PER EMAR. ENCOURATED PAITNE TO TAKE DEEP BREATHS. 1325-SOCIAL SERVICE COORDINATOR GIVES MEDICATION. 1326-RATES PAIN 9/10. PAIN MEDICTION GIVEN PER EMAR. 1330-PATIENT PLACED ON 4L VIA NC. RESP EVEN AND UNLABORED. ENCOURAGED PATIENT TO TAKE DEEP BREATHS. 1334-PATIENT SITTING UP IN BED. RATES PAIN 7/10. ENCOUAGED PATINET TO TAKE DEEP BREATHS. 1341-ASKED PATIENT ABOUT PAIN AND SHE STATES "GETTING BETTER BUT HURTS. PATIENT O2 DECREASES TO THE LOWER 80'S. ENCOURAGED PATIENT TO TAKE DEEP BREATHS. O2 INCREASED TO MID 90'S. 1343-PATEINT TAKING SIPS OF COFFEE. 1345-O2 DECREASED TO 2L VIA NC. RATES PAIN 7/10. DENIES NAUSEA. 1355-PATEINT READY TO TRANSFER BACK TO ROOM ON MED SURG. 1405-PATIENT BACK TO ROOM. BED PLUGGED IN AND BED RAILS UP. PATIENT IS TAKING SIPS OF WATER. REPORT GIVEN TO RUBY DYE. NO OTHER NEEDS AT THIS TIME.
--- NOTE | 2023-03-10 15:14 | NUR ---
UR NOTE MCG CELLULITIS (ISC) 03/07/23 MET CLINICAL INDICATIONS FOR ADMISSION TO INPATIENT CARE GL DAY 1
--- NOTE | 2023-03-10 16:29 | NUR ---
PATIENT POST OP VITALS COMPLETE AND DOCUMENTED IN THE CHART. PATIENT STATED PAIN WAS 8/10 AND REQUESTING SOMETHING FOR THE PAIN. PATIENT STATED NO FURTHER NEEDS AT THIS TIME. CALL LIGHT AND PERSONAL BELONGINGS ARE WITHIN REACH.
--- NOTE | 2023-03-10 19:53 | NUR ---
pt was turned and repositioned to L side, R BKA stump elevated in pillows. c/o dry heaving, medicated with compazine 5mg iv. toleratiing liquids well
--- NOTE | 2023-03-10 22:00 | NUR ---
ASSESSMENT AND VITAL SIGNS DONE. RIGHT BKA DRESSING CDI. pt C/O 09/20 PAIN. PRN PAIN MEDICATION ADMINISTERED, SEE MAR. SCHEDULED MEDICATION ADMINSITERED, SEE MAY. IV ABX INFUSING, SEE MAY. PURE WICK IN PLACE. BG CHECKED RESULTS OF 265. SS INSULIN ADMINISTERED, SEE MAR. WATER REFRESHED. ICE PACK PLACED ON RLE. MIDLINE FLUSHED WITH 10 MLS OF NS, WNL. CALL LIGHT WITHIN REACH NO OTHER NEEDS AT THIS TIME.
--- NOTE | 2023-03-10 23:52 | NUR ---
pt RESTING IN BED WITH EYES CLOSED. O2 SATURATION AT 99% ON 2LNC. RR EVEN AND UNLABORED. CALL LIGHT WITHIN REACH. NO OTHER NEED AT THIS TIME.
--- NOTE | 2023-03-11 00:46 | NUR ---
pt CALLED FOR PAIN MEDICATION. pt C/0 09/20 PAIN. PRN PAIN MEDICATION ADMINISTERED, SEE MAR. ICE PACK ON pt RLE. pt TITRATED OFF 2LNC TO RA. pt REPOSITIONED IN BED. pt WAS ABLE TO HELP BY PULLING HER SELF UP IN THE BED WITH HER ARMS. pt DENIES ANY OTHER NEEDS AT THIS TIME. CALL LIGHT WITHIN REACH.
[2023-03-11 01:57] VITALS: BP 112/56
--- NOTE | 2023-03-11 02:23 | NUR ---
ASSESSMENT AND VITAL SIGNS DONE. PRN PAIN MEDICATION ADMINISTERED. pt C/O 10/21 PAIN. RLE DRESSING CDI. pt REPOSITIONED. ICE PACK REFRESHED. NO OTHER NEEDS AT THIS TIME. CALL LIGHT WITHIN REACH.
[2023-03-11 04:56] VITALS: BP 127/61
--- NOTE | 2023-03-11 05:13 | NUR ---
pt C/O 09/20 PAIN. PRN PAIN MEDS ADMINISTERED, SEE MAR. VITAL SIGNS DONE. NEW PURE WICK PLACED. CALL LIGHT WITHIN REACH. IV ABX INFUSING, SEE MAR. MIDLINE FLUSHED WITH 10 MLS NS. NO OTHER NEEDS AT THIS TIME.
[2023-03-11 05:37] LABS: BASOPHILS 0.8 % (0-2); EOSINOPHILS 4.2 % (0-6); HEMATOCRIT 30.7 % (35.0-50.0); HEMOGLOBIN 10.2 g/dL (12.0-18.0); LYMPHOCYTES 18.5 % (24-44); MCH 28.9 (27-36); MCHC 33.2 g/dl (30-36); MCV 87.1 fl (81-99); MONOCYTES 7.4 % (0-12); NEUTROPHILS 69.1 % (39-80); PLATELET COUNT 335 K/uL (140-440); RBC 3.53 M/ul (4.3-5.7); RDW 16.5 (10.5-15.0)
[2023-03-11 05:48] LABS: ANION GAP 9.5 (7-21); BUN/CREATININE RATIO 37.45 (6.0-28.6); CALCIUM 8.4 mg/dL (8.5-10.1); CREATININE, SERUM 2.59 mg/dL (0.55-1.02); MAGNESIUM 1.5 mg/dL (1.8-2.4); POTASSIUM 3.5 mmol/L (3.5-5.1)
--- NOTE | 2023-03-11 07:03 | NUR ---
REPORT RECEIVED FROM SUPERVISOR OF OFFICIALS HARDIK WRIGHT. PATIENT RESTING IN BED WITH EYES CLOSED. RESPIRATIONS ARE EVEN AND UNLABORED. PATIENT CALL LIGHT AND PERSONAL BELONGINGS ARE WITHIN REACH.
--- NOTE | 2023-03-11 08:50 | NUR ---
PATIENT 0800 AND 0900 MEDICATIONS ADMINISTERED PER THE EMAR. PRN TYLENOL ADMINISTERED PER THE EMAR. PATIENT FULL ASSESSMENT COMPLETE AND DOCUMENTED IN THE CHART. PATIENT PAIN IS AN 8/10 IN THE RIGHT LOWER EXTREMITY. PATIENT RIGHT LOWER EXTREMITY DRESSING IS CLEAN, DRY, AND INTACT. PATIENT IS ON ROOM AIR, CPOX AT THE BEDSIDE, AND LUNG SOUNDS ARE CLEAR BUT DIMINISHED IN THE BASES BILATERALLY. NORMAL S1 AND S2 AUSCULTATED ON ASSESSMENT. PATIENT RIGHT ARM MIDLINE INTACT. MIDLINE DRESSING IS CLEAN, DRY, AND INTACT. CONTINUOUS FLUIDS RUNNING THROUGH THE MIDLINE AT THIS TIME. PUREWICK IN PLACE. PATIENT IS ALERT AND ORIENTED TIMES FOUR. PATIENT WITH NUMBNESS AND TINGLING IN THE UPPER EXTREMITIES BILATERALLY. PATIENT STATED NO FURTHER NEEDS AT THIS TIME. PATIENT CALL LIGHT AND PERSONAL BELONGINGS ARE WITHIN REACH.
[2023-03-11 09:02] VITALS: BP 114/56
--- NOTE | 2023-03-11 09:08 | NUR ---
PATIENT IS STATUS POST RIGHT BKA. THE PATIENT TENTATIVELY HAS A BED AT [facility] FOR WHEN THE PATIENT IS MEDICALLY STABLE AND THE PATIENT MEETS DISCHARGE CRITERIA. [facility] WILL NEED TO GET AN AUTH FROM [facility] PER GAURAV AT [facility].MEDICAL UPDATES ON PATIENT'S CONDITION SENT TO [facility].
--- NOTE | 2023-03-11 10:27 | CONS ---
[facility] [address] [place], [place] [address] Signed DATE OF CONSULTATION: 03/06/2023 REQUESTING PHYSICIAN: Dr. Muniz. PROBLEM: Right foot osteomyelitis, possible need for amputation. HISTORY OF PRESENT ILLNESS: This obese 58-year-old white woman lives in [facility], having been born in [place], but raised mostly in [place]. She has undergone right above knee amputation in the distant past and is nonambulatory. She is under the care of Dr. Quintero, e commerce retailer who has confirmed her to have progressive osteomyelitis, having undergone right great toe and 2nd toe amputation in the past. She has underlying type 2 diabetes mellitus in addition to her obesity and low-grade persistent nonhealing cellulitis in the right lower extremity as well. A chronic ulcer in the right foot in region of the area of prior great toe amputation is noted as well. The imaging studies were performed at the time of current admission showing concern for osteomyelitis involving the remnant of the great toe metatarsal and 2nd toe metatarsal as well as 3rd toe proximal phalanx. A MRI of the right lower extremity shows bone marrow edema and enhancement involving the 1st, 2nd, 3rd, and 4th metatarsals as well as cuneiform bones suggestive and concerning of extensive osteomyelitis. A probable pathologic fracture of the 4th metatarsal head was noted as well. As mentioned, the patient is nonambulatory but does use the right lower extremity to pivot and self transfer. Indeed, the remaining right lower extremity is relatively essential to her independent living it appears. The patient was admitted by Dr. Muniz on March 04 following her presentation in the emergency room and evaluation by Dr. Gonzáles. Cellulitis and purulent drainage of the right foot at the site of prior great toe amputation incision site was noted at the time of presentation. She is noted to have had side effects related to daptomycin on recent hospitalization and is considered to be failing outpatient therapy with doxycycline medication. She was evaluated by Dr. Quintero, her e commerce retailer, who thought her unlikely to have improvement. Her primary provider is Dr. Alfreda Taveras it is noted. PAST MEDICAL HISTORY: Notable for distant history of smoking (no longer) as well as underlying diabetes mellitus with peripheral neuropathy including COPD, hypertension, hyperlipidemia, Electronically Signed By: NUPUR EWING MD 03/11/23 1027 PATIENT NAME: LINH PEDRAZA CONSULTATION DATE OF : 65 REPORT #: [id number] PHYSICIAN: NUPUR EWING MD PCP: ALFREDA TAVERAS MD REPORT IS CONFIDENTIAL AND NOT TO BE RELEASED WITHOUT AUTHORIZATION [facility] [address] [place] [id number] Signed seizure history, chronic kidney disease considered stage III, history of diverticulitis, and gastroparesis. SURGICAL HISTORY: Includes cholecystectomy, hysterectomy, history of diabetic abscess and arterial bypass of the left leg, left above knee amputation, right great toe amputation. ALLERGIES: She is considered to have allergies to codeine, Demerol, erythromycin base, Bactrim and Levaquin. MEDICATIONS: Included linezolid 600 mg b.i.d. Other medicines include: 1. Plavix 75 mg daily. 2. Fluticasone spray. 3. Aripiprazole one tablet p.o. daily. 4. Carvedilol 1 tablet b.i.d. 5. Fluoxetine 1 p.o. daily. 6. Rosuvastatin 1 p.o. daily. 7. Insulin. 8. Albuterol. 9. Torsemide. 10. Metolazone. 11. Jardiance. 12. Potassium chloride. 13. Vitamin D2. SOCIAL HISTORY: She lives in a private home, currently has concerns about needing institutionalization. REVIEW OF SYSTEMS: She denies any shortness of breath or chest pain. She really does not have foot pain at this time. She does not have shortness of breath. PHYSICAL EXAMINATION: GENERAL: This is an obese white woman, who is sitting upright in a chair. She does not look distressed at all at this time. VITAL SIGNS: Weight is 119 kg. BMI is 2.27. CHEST: Shows normal respiratory excursion. Pulses regular. ABDOMEN: Obese, but soft. EXTREMITIES: Her left upper leg shows above knee amputation with a relatively short stump. The right leg is examined, dressing was removed. There is some yellow Electronically Signed By: NUPUR EWING MD 03/11/23 1027 PATIENT NAME: LINH PEDRAZA CONSULTATION DATE OF : 65 REPORT #: [id number] PHYSICIAN: NUPUR EWING MD PCP: ALFREDA TAVERAS MD REPORT IS CONFIDENTIAL AND NOT TO BE RELEASED WITHOUT AUTHORIZATION [address] [id number] Signed crusting on previous area of the right great toe amputation. Her foot is somewhat swollen, but not too much actually. There is evidence of chronic stasis disease of the ankle and calf, but no open wound there. She has no actual edema there. She does not have active cellulitis of the proximal ankle or calf area. There is no tenderness on palpation of her forefoot or plantar aspect of the foot. Her foot is reasonably warm, but I do not detect a pulse by palpation at this point. Imaging studies are as previously described confirming right great toe and amputation to the proximal metatarsal and the distal metatarsal of the 2nd toe. There is a moth-eaten appearance of the remaining metatarsal of the great toe and a convoluted appearance of the 3rd great toe in relation to the metatarsal. MRI was additionally reviewed with note of interpretation to include bone marrow edema of the 1st, 2nd, 3rd, and 4th metatarsals throughout the cuneiform bones and abnormal bone marrow enhancement of the distal aspect of 1st and 2nd metatarsals as well as the 3rd and 4th metatarsal heads. Moderate enhancement at the base of the 2nd and 3rd metatarsals and lesser involvement of the base of the 4th metatarsal is also noted. There is moderate patchy enhancement noted in the cuneiform bones. Moderate edema is noted of the soft tissue. There is no plantar soft tissue abnormality particularly. There is an elongated rim enhancing fluid collection in the distal margin of the 1st and 2nd digits. Extensive edema and enhancement of the subcutaneous tissue of the intrinsic foot musculature concerning for cellulitis and myositis. Assessment she has had failure of aggressive therapy for infection of osteomyelitis of the toes and previous failure of similar intervention on the left side, ultimately culminating in an above-knee amputation. In her particular circumstance, the remaining (dysfunctional) right foot is apparently essential in her pivoting for transfer and maintenance of independent living. A Lisfranc amputation (transcuneiform amputation) may actually be beneficial in her particular situation, though it is usually not of great benefit in the average patient requiring amputation under these circumstances. Although a right below-knee amputation would be feasible and likely to heal well overall. It is probable that it would impair her independent living rather significantly. I have reviewed further with others whether or not a Lisfranc level amputation would be feasible for salvage of her pivot point versus a right below-knee amputation, which would more reliably be curative to her osteomyelitis problem but possibly significantly detrimental to her ability for independent living. All of these issues were discussed with her in detail, she understands and agrees. Nupur Ewing MD Electronically Signed By: NUPUR EWING MD 03/11/23 1027 PATIENT NAME: LINH PEDRAZA CONSULTATION DATE OF : 65 REPORT #: [id number] PHYSICIAN: NUPUR EWING MD PCP: ALFREDA TAVERAS MD REPORT IS CONFIDENTIAL AND NOT TO BE RELEASED WITHOUT AUTHORIZATION [facility] [address], [place] [address] Signed [id number] /[id number] cc: Dr. Alfreda Gonzáles MD Copies: CINTHYA GONZÁLES MD ~ Electronically Signed By: NUPUR EWING MD 03/11/23 1027 PATIENT NAME: LINH PEDRAZA CONSULTATION DATE OF : 65 REPORT #: [id number] PHYSICIAN: NUPUR EWING MD PCP: ALFREDA TAVERAS MD REPORT IS CONFIDENTIAL AND NOT TO BE RELEASED WITHOUT AUTHORIZATION
--- NOTE | 2023-03-11 10:29 | OR ---
[facility] [address], [place] [address] Signed DATE OF OPERATION: 03/10/2023 SURGEON: Nupur wEing MD PREOPERATIVE DIAGNOSES: 1. Chronic recurrent progressive osteomyelitis of right lower extremity including metatarsals, cuneiforms and possibly cuboid bones. 2. Recent recurrent right lower extremity cellulitis. 3. History of left dnwdi-fkm-ooaw amputation. 4. Obesity, insulin-dependent diabetes mellitus and distant history of smoking. POSTOPERATIVE DIAGNOSIS: 1. Chronic recurrent progressive osteomyelitis of right lower extremity including metatarsals, cuneiforms and possibly cuboid bones. 2. Recent recurrent right lower extremity cellulitis. 3. History of left tvwlu-lvq-zkht amputation. 4. Obesity, insulin-dependent diabetes mellitus and distant history of smoking. PROCEDURE: Right below-knee amputation with posterior based flap closure. ANESTHESIA: General endotracheal, Nupur Daugherty CRNA and preoperative transgluteal block. INDICATION: This 58-year-old obese white woman was admitted to the hospital by Dr. Marycarmen Muniz, hospitalist on March 04, 2023, with recurrent cellulitis of the right foot. The patient has been under the care of Dr. Shay Palomino for management architect for quite some time, having undergone right great toe amputation, 2nd toe amputation and treatment of recurrent infection of the forefoot and recent findings of osteomyelitis of not only the metatarsal heads with the cuneiform bones and possibly cuboid bone of the foot. Antibiotic therapy has been beneficial in treatment of her cellulitis, but given the ongoing osteomyelitis issue, consideration was made by Dr. Palomino for consideration of below-knee amputation as definitive solution to her progressive and recurrent osteomyelitis problems. Notably, the patient has undergone an ehbnv-fas-rpbi amputation in the past. She is wheelchair bound currently. My review of her situation so as to preserve as much of the lower extremity as possible to enhance her ability for transfer and other self-care included a review of her recent MRI with the radiologist who confirms it is likely only the calcaneus bone remains as a Electronically Signed By: NUPUR EWING MD 03/11/23 1029 PATIENT NAME: LINH PEDRAZA OPERATIVE REPORT DATE OF : 65 REPORT #: [id number] PHYSICIAN: NUPUR EWING MD PCP: ABIMBOLA TAVERAS MD REPORT IS CONFIDENTIAL AND NOT TO BE RELEASED WITHOUT AUTHORIZATION [address] [address] Signed viable bone as regards osteomyelitis. On that basis, her below-knee amputation is deemed most advisable under the circumstances. The patient fully desires a below-knee amputation and wishes to have no further intervention to save even a portion of the forefoot as it turns out. The risk of bleeding, infection, wound healing problems, and so forth were all reviewed with her. She understands and wished to proceed. Of note, her other underlying issues include diabetes mellitus, obesity and history of smoking, which is no longer an issue. FINDINGS: She does have obesity and the leg was no exception. Below-knee amputation was undertaken without complication allowing for a posterior based flap. Viable muscle remains. DESCRIPTION OF PROCEDURE: The patient was brought to the operating room after undergoing a transgluteal block on the right side. Her antibiotic regimen of cefepime and vancomycin had been ongoing and had been given immediately prior to operation. She was given a general endotracheal anesthetic. In the supine position, her right lower extremity was prepared with a chlorhexidine solution and draped sterilely. The forefoot was wrapped with a stockinette and additionally secured with a Coban dressing. The tibial tuberosity was identified and an area 10 cm inferior to it was marked. A kevon on the skin posteriorly, medially and laterally was undertaken so as to provide a lengthy flap for wound coverage. Using a 10 blade, incision was made in the marked site. Electrocautery used to transect the subcutaneous tissue and skin. Small blood vessels were either cauterized or secured with silk ties as appropriate. The tibial bone was identified and incised circumferentially. Interosseous muscle was divided with electrocautery and laterally dissection was taken to identify the fibula itself. The fibula was freed proximally for several centimeters to be at least 2 cm proximal to the planned transection site of the tibia. Once completely freed from surrounding soft tissue and so forth, the tibia was transected with an oscillating narrowband saw. Bone shards were freed with a rongeur. The subcutaneous tissue on the medial aspect was then incised with electrocautery more fully identifying the deeper muscle groups and ultimately the gastrocnemius. Electronically Signed By: NUPUR EWING MD 03/11/23 1029 PATIENT NAME: LINH PEDRAZA OPERATIVE REPORT DATE OF : 65 REPORT #: [id number] PHYSICIAN: NUPUR EWING MD PCP: ABIMBOLA TAVERAS MD REPORT IS CONFIDENTIAL AND NOT TO BE RELEASED WITHOUT AUTHORIZATION [address] [address] Signed The anterior tibial arterial VASCADE was identified and ligated with silk and divided. The tibia anteriorly was freed of its periosteum, directing and inferiorly. Using the wider blade oscillating saw, the tibia was transected. This allowed for the lower part of the leg to be flail, which was elevated. The popliteal artery and venous branches were secured with hemostats and divided. Further developed amount of the posterior muscle flap was undertaken with electrocautery and ultimately a large Weck knife. Excision was taken posteriorly through the Achilles tendon freeing the specimen completely. It was passed for pathology. Hemostasis was assured in the muscular layers with electrocautery. Using the long bladed Weck knife, the gastrocnemius and remaining soleus muscle was tapered to allow for closure of the flap. Irrigation was undertaken fully. Once the flap was of appropriate thickness, attention was turned towards the tibia bone. An anterior wedge of bone was excised to provide a non sharp surface for the bone against the muscle flap. Using a rasp, the sharp edges were developed and ultimately, the smooth bone resulted. The bone marrow was not bleeding and the bone itself appeared healthy. The fibula was at least 2 cm proximal to the tibia bone in its length. The flap was then closed with interrupted 2-0 Vicryl in the fasciocutaneous plane. The skin was then closed with interrupted 2-0 nylon in a vertical mattress configuration. Irrigation was undertaken and skin cleansed. There was no sign of bleeding. An Acticoat dressing was applied to the raw surface area followed by a Kerlix and ultimately an Hawk wrap. The patient was ultimately extubated and transferred to the recovery room in good condition having suffered no complications. Sponge, needle, and instrument counts reported as correct x3. Blood loss was less than 100 mL in aggregate. MD DB Urias/[id number] /[id number] cc: PATRIZIA Edwards MD Electronically Signed By: NUPUR EWING MD 03/11/23 1029 PATIENT NAME: LINH PEDRAZA OPERATIVE REPORT DATE OF : 65 REPORT #: [id number] PHYSICIAN: NUPUR EWING MD PCP: ABIMBOLA TAVERAS MD REPORT IS CONFIDENTIAL AND NOT TO BE RELEASED WITHOUT AUTHORIZATION [address] [address] Signed Copies: ~ Electronically Signed By: NUPUR EWING MD 03/11/23 1029 PATIENT NAME: LINH PEDRAZA OPERATIVE REPORT DATE OF : 65 REPORT #: [id number] PHYSICIAN: NUPUR EWING MD PCP: ABIMBOLA TAVERAS MD REPORT IS CONFIDENTIAL AND NOT TO BE RELEASED WITHOUT AUTHORIZATION
[2023-03-11 13:04] VITALS: BP 125/60
--- NOTE | 2023-03-11 13:16 | NUR ---
UR NOTE MCG KNEE: AMPUTATION ABOVE OR BELOW KNEE (ISC) 03/10/23 MET CLINCAL INDICATIONS FOR PROCEDURE GL DAY 1 03/11/23 MET GL DAY 2
--- NOTE | 2023-03-11 13:47 | NUR ---
RESTING IN BED. PATIENT HAS BEEN WORKING WITH PT THIS AM. PATIENT'S RENAL FUNCTIONS ARE ELEVATED. PATIENT CONTINUES TO NEED MED-SURG. CARE. PATIENT'S DISCHARGE PLAN REMAINS THE SAME, TO [facility] WHEN WEDICALLY STATBLE.PER GAURAV PATIENT NEEDS AN AUTH. PRIOR TO ADMITTING PATIENT SNF.
--- NOTE | 2023-03-11 14:01 | NUR ---
CEFEPIME SET UP AND IS RUNNING THROUGH THE MIDLINE. PATIENT PAIN IS 6/10 IN THE RIGHT LOWER EXTREMITY. PATIENT SURGICAL DRESSING IS CLEAN, DRY, AND INTACT. EDUCATED PATIENT THAT WHEN TYLENOL IS AVAILABLE WE CAN ADMINISTER IT. PATIENT STATED NO FURTHER NEEDS AT THIS TIME. CALL LIGHT AND PERSONAL BELONGINGS ARE WITHIN REACH.
[2023-03-11 17:41] VITALS: BP 122/57
[2023-03-11 20:11] VITALS: BP 112/50
--- NOTE | 2023-03-11 20:38 | NUR ---
pt awake, on room air, c/o R leg pain, medicated with Tylenol. RBKA stump dressing CDI, covered with dia wrap. surrounding skin above knee soft, normal looking. LAKA stump moves it w/o problems. On room air, lungs dim at bases, JONATHAN, no bm for 2 days, abd soft. inc of urine, attends changed, has purewick in place. changed at change of shift by am personnel. patent. draining cloudy, yellow looking urine. vaginal area slightly irritated but denies any problems. R arm Midline in place, patent, VIF infusing w/o problems. Pleasant and cooperative, denies ice to R stump. fresh ice water given
--- NOTE | 2023-03-11 22:28 | NUR ---
PT C/O R STUMP PAIN, MEDICATED WITH DILAUDID PO. ON ROOM AIR, GREG REPOSTIONED. PATENT. IVF INFUSING. PT WATCHING TV AND VISITING WITH FAMILY VIA PHONE. CONTINUES ON CONTACT ISOLATION
--- NOTE | 2023-03-12 00:05 | NUR ---
AWAKE, WATCHING TV, ON ROOM AIR, IVF INFUSING, RA MIDLINE.DRESSING TO RBKA STUMP INTACT
--- NOTE | 2023-03-12 02:13 | NUR ---
C/O R FOOT PAIN, AWAKE WATCHING TV, R BKA STUMP DRESSING CDI. ON ROOM AIR. IVF INFUSING W/O PROBLEMS. TOLERATAING LIQUIDS WELL, NO C/O N/V. REPOSITIONS SELF IN BED
--- NOTE | 2023-03-12 04:07 | NUR ---
eyes closed, no distress, IVF infusing w/o problems. arm elevayed in pillows. R BKA stump dressing CDI. Pure wick in place, draining cloudy yellow colored urine. Calllight and fluids at hands reach
--- NOTE | 2023-03-12 04:29 | NUR ---
in to assist RN with new purewick placement d/t pt repositioning, new attends in plece no further needs at this time
[2023-03-12 05:26] VITALS: BP 130/55
[2023-03-12 05:32] LABS: BASOPHILS 0.5 % (0-2); EOSINOPHILS 5.2 % (0-6); HEMATOCRIT 29.2 % (35.0-50.0); HEMOGLOBIN 9.7 g/dL (12.0-18.0); LYMPHOCYTES 15.5 % (24-44); MCH 28.7 (27-36); MCHC 33.2 g/dl (30-36); MCV 86.7 fl (81-99); MONOCYTES 6.2 % (0-12); NEUTROPHILS 72.6 % (39-80); PLATELET COUNT 316 K/uL (140-440); RBC 3.37 M/ul (4.3-5.7); RDW 16.7 (10.5-15.0)
[2023-03-12 05:40] LABS: ANION GAP 10.3 (7-21); BUN/CREATININE RATIO 45.23 (6.0-28.6); CALCIUM 8.4 mg/dL (8.5-10.1); CREATININE, SERUM 1.68 mg/dL (0.55-1.02); MAGNESIUM 2.5 mg/dL (1.8-2.4); POTASSIUM 3.3 mmol/L (3.5-5.1)
--- NOTE | 2023-03-12 06:02 | NUR ---
Pt continues on contact isolation. post op RBKA dressing CDI. moves well. LAKA stump no problems. Pure wich in place, changed earlier, draining cloudy yellow urine. improved rocco/under pannus and gluteal areas. Nystatin ointment applied. was Incontinent of urine x1, linen, attends changed. cooperativ with turning, Turns and repositions self in bed. R arm Midline IV site patent. IVF infusing, no c/o adverse reaction to abx. Has been medicated with Dilaudid 2mg twice and Tylenol 1000mg po twice, last at 0535. per c/o RBKA pain. has slept off and on. no n/v. CBG 173. received 1 unit ss indulin, plus scheduled. No bm x3 days, abd soft, magui.pleasant, alert and oriented
--- NOTE | 2023-03-12 07:15 | NUR ---
REPORT RECEIVED FROM ARJUN DYE ALL QUESTIONS ANSWERED. PT RESTING IN BED WITH EYES CLOSED, RESPIRATIONS EVEN AND UNLABORED. APPEARS TO BE IN NO DISTRESS AT THIS TIME. CALL LIGHT IN REACH.
--- NOTE | 2023-03-12 08:25 | NUR ---
MORNING ASSESSMENT COMPLETE. PT AWAKE IN BED EATING BREAKFAST. STATES PAIN IN RLE 08/21, PRN DILUADID ADMIN, SEE EMAR. DRESSING TO RLE CDI. MID LINE IV WNL, FLUSHED. POTASSIUM IV STARTED, VERIFIED WITH PAHRMACY COMPATIBILITY WITH ABX. DISCUSSED PLAN OF CARE FOR THE DAY. PT DENIES FURTHER NEEDS AT THIS TIME. CALL LIGHT IN REACH.
[2023-03-12 09:53] VITALS: BP 146/62
[2023-03-12 14:33] VITALS: BP 132/68
--- NOTE | 2023-03-12 16:07 | NUR ---
PT RESTING QUIETLY IN BED WITH EYES CLOSED, RESPIRATIONS EVEN AND UNLABORED. CALL LIGHT AND PERSONAL BELONGINGS IN REACH.
[2023-03-12 17:56] VITALS: BP 129/63
--- NOTE | 2023-03-12 19:33 | NUR ---
REPORT RECEIVED FROM DAY SHIFT RN. PATIENT RESTING IN BED ON THE PHONE. REPORTS NO CURRENT NEEDS. CALL LIGHT IN REACH.
[2023-03-12 21:02] VITALS: BP 146/72
--- NOTE | 2023-03-12 21:27 | NUR ---
PATIENT RESTING IN BED. VS AND I&Os OBTAINED AND RECORDED. PATIENT BREIF AND CHUX REPLACED. NEW PUREWICK IN PLACE AFTER JEREMY CARE PROVIDED. PATIENT DENIES THE NEED FOR NYSTATIN. SCHEDULED MEDICAIONS ADMINISTERED. PRN PAIN MEDICATION ADMINISTERED, SEE MAR. ASSESSMENT COMPLETE. PATIENT REPORTS 6/10 PAIN IN RLE. ICE PACK APPLIED TO RIGHT LOWER EXTREMITY. MIDLINE FLUSHED AND WNL. PATIENT REPORTS NO BM FOR 3 DAYS. DENIES THE NEED FOR BOWEL CARE AT THIS TIME. PATIENT HAS NO FURTHER NEEDS. CALL LIGHT IN REACH.
--- NOTE | 2023-03-12 22:28 | NUR ---
PATIENT RESTING IN BED. VS AND I&Os OBTAINED AND RECORDED. SCHEDULED MEDICATIONS ADMINISTERED. PATIENT REPOSITIONED IN BED. PATIENT FLOATED WITH PILLOWS UNDER BILAT HIPS. SCHEDULED TUBE FEEDING ADMINISTERED PER ORDER. IV FLUSHED AND WNL. IV FLUID INFUSING PER ORDER. ASSESSMENT COMPLETE. PATIENT AWARE TO NAME AND . NO FURTHER NEEDS. CALL LIGHT IN REACH. CATH CARE AND JEREMY CARE COMPLETED.
--- NOTE | 2023-03-12 22:44 | NUR ---
IV ABX INFUSING PER ORDER. PRN PAIN MEDICATIONS ADMINISTERED, SEE MAR. NO FURTHER NEEDS. CALL LIGHT IN REACH.
--- NOTE | 2023-03-13 00:02 | NUR ---
PATIENT RESTING IN BED ON BACK TALKING ON HER PHONE. PATIENT REPORTS NO CURRENT NEEDS. CALL LIGHT IN REACH.
--- NOTE | 2023-03-13 02:36 | NUR ---
PATIENT REPORTS 7/10 PAIN IN RLE. PRN PAIN MEDICATION ADMINISTERED PER PATIENT REQUEST. PATIENT HAS NO FURTHER NEEDS. CALL LIGHT IN REACH.
--- NOTE | 2023-03-13 03:45 | NUR ---
PATIENT INCONT OF URINE. ATTEDN CHANGED, JEREMY CARE COMPLETED AND PUREWICK IN PLACE. PATIENT REPORTS IMPROVEMENT IN PAIN. FRESH CE WATER AND COFFEE PROVIDED. PATIENT DENIES ANY FURTHER NEEDS. CALL LIGHT IN REACH.
--- NOTE | 2023-03-13 04:30 | NUR ---
PATIENT AWAKE IN BED WATCHING TV. ASSESSMENT COMPLETE. PATIENT REPORTS 4/10 PAIN IN RLE. PRN PAIN MEDICATION ADMINISTERED, SEE MAR. PATIENT RLE DRESSING C/D/I. PATIENT HAS NO FURTHER NEEDS. CALL LIGHT IN REACH.
[2023-03-13 05:43] VITALS: BP 139/74
[2023-03-13 05:44] LABS: BASOPHILS 1.2 % (0-2); EOSINOPHILS 5.5 % (0-6); HEMATOCRIT 29.3 % (35.0-50.0); HEMOGLOBIN 9.6 g/dL (12.0-18.0); LYMPHOCYTES 20.6 % (24-44); MCH 28.7 (27-36); MCHC 32.8 g/dl (30-36); MCV 87.4 fl (81-99); MONOCYTES 6.7 % (0-12); PLATELET COUNT 303 K/uL (140-440); RBC 3.35 M/ul (4.3-5.7); RDW 16.1 (10.5-15.0)
--- NOTE | 2023-03-13 05:48 | NUR ---
PATIENT RESTING IN BED. VS AND I&Os OBTAINED AND RECORDED. NEW PUREWICK PLACED AFTER PERICARE PROVIDED. SCHEDULED MEDICATIONS ADMINISTERED. IV ABX INFUSING PER ORDER, SEE MAY. COFFEE PROVIDED. PATIENT HAS NO FURTHER NEEDS. CALL LIGHT IN REACH.
[2023-03-13 06:02] LABS: ALBUMIN 2.2 g/dL (3.4-5.0); ALBUMIN/GLOBULIN RATIO 0.48 (1.1-2.4); ANION GAP 11.2 (7-21); BILIRUBIN, TOTAL 0.3 ng/dL (0.2-1.0); BUN/CREATININE RATIO 36.95 (6.0-28.6); CALCIUM 8.3 mg/dL (8.5-10.1); CREATININE, SERUM 1.38 mg/dL (0.55-1.02); MAGNESIUM 2.1 mg/dL (1.8-2.4); POTASSIUM 4.2 mmol/L (3.5-5.1); PROTEIN, TOTAL 6.8 g/dL (6.4-8.2)
--- NOTE | 2023-03-13 06:18 | NUR ---
PATIENT REPORTS 3/10 RLE PAIN. PRN PAIN MEDICATION ADMINISTERED, SEE MAR. PATIENT HAS NO FURTHER REQUESTS. CALL LIGHT IN REACH.
--- NOTE | 2023-03-13 07:10 | NUR ---
REPORT RECEIVED WOODWIND INSTRUMENTS INSPECTOR HARDIK VILLALOBOS. PATIENT IS LYING IN BED WITH EYES CLOSED AND RESPIRATINS ARE EVEN AND UNLABORED. CALL LIGHT AND PERSONAL BELONGINGS ARE WITHIN REACH.
--- NOTE | 2023-03-13 08:17 | NUR ---
PATIENT 0800 AND 0900 MEDICATIONS ADMINISTERED PER THE EMAR. FULL ASSESSMENT COMPLETE AND DOCUMENTED IN THE CHART. PATIENT STATED PAIN IS A 5/10. PATIENT ON ROOM AIR AND LUNG SOUNDS ARE CLEAR BUT DIMINISHED IN THE BASES BILAERALLY. CARDIAC WITH NORMAL S1 AND S2. PATIENT NOT ON TELEMETRY. BOWEL TONES ARE ACTIVE IN ALL FOUR QUADRANTS. PATIENT WITH NUMBNESS AND TINGLING IN THE UPPER EXTREMITITES. MIDLINE DRESSING IS CLEAN, DRY, AND INTACT. PATIENT RIGHT BELOW THE KNEE DRESSING IS ALSO CLEAN, DRY, AND INTACT. PATIENT SITTING UPRIGHT IN BED AND EATING BREAKFAST. PATIENT STATED NO FURTHER NEEDS AT THIS TIME. CALL LIGHT AND PERSONAL BELONGINGS ARE WITHIN REACH.
[2023-03-13 09:03] VITALS: BP 131/64
--- NOTE | 2023-03-13 11:16 | NUR ---
PATIENT PRN DILUADID ADMINISTERED PER THE EMAR. PATIENT STATED PAIN WAS 5/10 AND EXPRESSING CONCERN ABOUT BEING ON TOP OF THE PAIN. NYSTATIN CREAM APPLIED. PATIENT REPOSITIONED IN BED. PATIENT STATED NO FURTHER NEEDS AT THIS TIME. CALL LIGHT AND PERSONAL BELONGINGS ARE WITHIN REACH.
--- NOTE | 2023-03-13 12:13 | NUR ---
PATIENT LUNCH TRAY TAKEN TO THE PATIENT ROOM. PATIENT INSULIN DOSE ADMINISTERED PER THE EMAR. PATIENT CURRENTLY WORKING WITH PHYSICAL THERAPY AT THE BEDSIDE. PATIENT STATED NO FURTHER NEEDS AT THIS TIME. CALL LIGHT AND PERSONAL BELONGINGS ARE WITHIN REACH.
--- NOTE | 2023-03-13 14:09 | NUR ---
AFTER PT AND DRESSING CHANGE PATIENT STATED PAIN WAS 8/10. PATIENT REQUESTING PAIN MEDICATION THEY BECOME AVAILABLE. DRESSING IS CLEAN, DRY, AND INTACT. RIGHT LOWER EXTREMITY IS ELEVATED ABOVE THE PATIENTS LEVEL OF THE HEART WITH ICE PACKS SURROUNDING IT. PATIENT MIDLINE FLUSHING WELL. IV ANTIBIOTICS INFUSING. 1400 MEDICATIONS ADMINISTERED PER THE EMAR. PATIENT STATED NO FURTHER NEEDS AT THIS TIME. CALL LIGHT AND PERSONAL BELONGINGS ARE WITHIN REACH.
[2023-03-13 15:02] VITALS: BP 150/80
[2023-03-13 17:42] VITALS: BP 118/47
--- NOTE | 2023-03-13 19:17 | NUR ---
REPORT RECEIVED FROM DAY SHIFT RN. PATIENT RESTING IN BED WATCHING TV. PATIENT REPORTS NO CURRENT NEEDS. CALL LIGHT IN REACH.
[2023-03-13 20:50] VITALS: BP 151/70
--- NOTE | 2023-03-13 21:48 | NUR ---
PATIENT RESTING IN BED. VS AND I&Os OBTAINED AND RECORDED. SCHEDULED MEDICATIONS ADMINISTERED. PATIENT INCONTINENT OF URINE. NEW BREIF IN PLACE AFTER JEREMY CARE PROVIDED. PUREWICK PLACED. ASSESSMENT COMPLETE. PATIENT REPORTS 6/10 PAIN. PATIENT REPOSTIONED IN BED WITH PILLOW UNDER RIGHT STUMP. MIDLINE FLUSHED AND WNL. IV ABX INFUSING PER ORDER. FRESH WATER PROVIDED. PATIENT HAIR COMBED AND BRAIDED. PATIENT HAS NO FURTHER NEEDS. CALL LIGHT IN REACH.
--- NOTE | 2023-03-13 22:31 | NUR ---
PATIENT REPORTS 5/10 RLE PAIN. PRN PAIN MEDICATION ADMINISTERED, SEE MAR. PATIENT HAS NO FURTHER NEEDS. CALL LIGHT IN REACH.
--- NOTE | 2023-03-13 22:54 | NUR ---
PATIENT RESTING IN BED WITH EYES CLOSED. RESPIRATIONS EVEN AND UNLABORED. PATIENT REPOSITIONED IN BED WITH PILLOW UNDER LEFT HIP. CALL LIGHT IN REACH.
--- NOTE | 2023-03-14 00:56 | NUR ---
PATIENT REPORTS 5/10 PAIN IN RLE. PRN PAIN MEDICATION ADMINISTERED, SEE MAR. PATIENT HAS NO FURTHER NEEDS. CALL LIGHT IN REACH.
--- NOTE | 2023-03-14 03:18 | NUR ---
PATIENT RESTING IN BED. PUREWICK AND BREIF REPLACED AFTER JEREMY CARE PROVIDED. ASSESSMENT COMPLETE. PATIENT RIGHT STUMP DRESSING C/D/I. PATIENT REPORTS 6/10 PAIN IN RLE. PRN PAIN MEDICATION ADMINISTERED, SEE MAR. PATIENT RLE ELEVATED ON 2 PILLOWS. PATIENT HAS NO FURTHER NEEDS. CALL LIGHT IN REACH.
[2023-03-14 06:23] VITALS: BP 148/66
--- NOTE | 2023-03-14 06:39 | NUR ---
PATIENT RESTING IN BED WITH EYES CLOSED. PATIENT AWAKENS EASILY. VS AND I&Os OBTAINED AND RECORDED. PATIENT REPORTS 5/10 RLE PAIN. PRN PAIN MEDICATION ADMINISTERED. SCHEDULED MEDICATIONS ADMINISTERED. FRESH COFFEE PROVIDED. PATIENT HAS NO FURTHER NEEDS. CALL LIGHT IN REACH.
[2023-03-14 06:44] LABS: BASOPHILS 0.9 % (0-2); EOSINOPHILS 4.9 % (0-6); HEMATOCRIT 29.3 % (35.0-50.0); HEMOGLOBIN 9.5 g/dL (12.0-18.0); LYMPHOCYTES 21.2 % (24-44); MCH 28.4 (27-36); MCHC 32.5 g/dl (30-36); MCV 87.5 fl (81-99); MONOCYTES 7.6 % (0-12); NEUTROPHILS 65.4 % (39-80); PLATELET COUNT 311 K/uL (140-440); RBC 3.35 M/ul (4.3-5.7); RDW 16.7 (10.5-15.0)
[2023-03-14 06:58] LABS: ALBUMIN 2.1 g/dL (3.4-5.0); ALBUMIN/GLOBULIN RATIO 0.45 (1.1-2.4); ANION GAP 13.4 (7-21); BILIRUBIN, TOTAL 0.3 ng/dL (0.2-1.0); BUN/CREATININE RATIO 33.87 (6.0-28.6); CALCIUM 8.8 mg/dL (8.5-10.1); CREATININE, SERUM 1.24 mg/dL (0.55-1.02); MAGNESIUM 2.1 mg/dL (1.8-2.4); POTASSIUM 4.4 mmol/L (3.5-5.1); PROTEIN, TOTAL 6.8 g/dL (6.4-8.2)
--- NOTE | 2023-03-14 07:42 | NUR ---
REPORT RECEIVED FROM ASP NET PROGRAMMER RN. PATIENT IS SITTING UPRIGHT IN THE BED AND WATCHING TV. CALL LIGHT AND PERSONAL BELONGINGS ARE WITHIN REACH.
--- NOTE | 2023-03-14 09:00 | NUR ---
0800 AND 0900 MEDICATIONS ADMINISTERED PER THE EMAR. PRN TYLENOL ADMINISTERED PER THE EMAR FOR 4/10 PAIN. PATIENT STATED HER PAIN WAS BETTER CONTROLLED THROUGHOUT THE NIGHT. FULL ASSESSMENT COMPLETE AND DOCUMENTED IN THE CHART. DRESSING ON THE RIGHT LOWER EXTREMITY IS CLEAN, DRY, AND INTACT. EXTREMITY IS ELEVATED ON A PILLOW. PATIENT STATED HAVING NUMBNESS AND TINGLING IN ALL EXTREMITITES BUT THIS IS NORMAL PER PATIENT REPORT. PATIENT IS ON ROOM AIR. LUNG SOUNDS ARE CLEAR BUT DIMINISHED IN THE BASES BILATERALLY. NORMAL S1 AND S2 AUSCULTATED. MIDLINE DRESSING IS CLEAN, DRY, AND INTACT. ANTIBIOTICS ARE CURRENTLY INFUSING. PATIENT BOWEL TONES ARE ACTIVE IN ALL FOUR QUADRANTS. PATIENT STATED NO FURTHER NEEDS AT THIS TIME. CALL LIGHT AND PERSONAL BELONGINGS ARE WITHIN REACH.
[2023-03-14 09:53] VITALS: BP 113/53
[2023-03-14 14:25] VITALS: BP 135/67
--- NOTE | 2023-03-14 14:42 | NUR ---
1400 MEDICATIONS ADMINISTERED PER THE EMAR. PRN TYLENOL ADMINISTERED FOR PAIN OF 5/10. MIDLINE DRESSING IS CLEAN, DRY, AND INTACT. MIDLINE FLUSHED WELL WITH 10 ML NORMAL SALINE. RIGHT BELOW THE KNEE DRESSING IS CLEAN, DRY, AND INTACT. THE RIGHT LOWER EXTREMITY IS ELEVATED ON A PILLOW AT THIS TIME. PATIENT INTAKE AND OUTPUT VITAL SIGNS DOCUMENTED IN THE CHART. PATIENT STATED NO FURTHER NEEDS AT THIS TIME. CALL LIGHT AND PERSONAL BELONGINGS ARE WITHIN REACH.
--- NOTE | 2023-03-14 17:37 | NUR ---
RN SPOKE WITH PATIENT IN REGARDS TO NOT HAVING A BOWEL MOVEMENT SINCE 03/08/23. PATIENT STATED SHE WANTS NO BOWEL CARE MEDICATIONS. WHEN ASKED ABOUT HER REGULAR SCHEDULE SHE STATED SHE POOPS ABOUT ONCE A WEEK AND AFTER SHE DOES SHE WILL GET DIARRHEA FOR THE DAYS FOLLOWING. PATIENT SAID SHE KNOWS WHEN SHE GETS CONSTIPATED AND WILL NEED SOMETHING. PATIENT STATED NO FURTHER NEEDS AT THIS TIME. CALL LIGHT AND PERSONAL BELONGINGS ARE WITHIN REACH.
[2023-03-14 18:15] VITALS: BP 112/46
[2023-03-14 21:12] VITALS: BP 139/61
--- NOTE | 2023-03-14 21:45 | NUR ---
Pt watching tv, on room air, c/o 09/20 RBKA stump. Medicated with Tylenol 1000mg po. coop with vitals and assessment, ointment to under pannus and rocco area, barrier lotion to area between buttcks. pure wick in place, draining cloudy/yellow urine. denies itching. Tolerating liquids well. CBG 161, received 1 unit SS Insulin and 30 units scheduled [place], Midline/SL RAC patent. turns and repositions self in bed. On room air. Dry non productive cough present. lungs with crackles at bases. cleared with cough, dim sounds at bases present.
--- NOTE | 2023-03-14 23:03 | NUR ---
PATIENT CALLED STATING "IM WET". WHOLE BED CHANGED AND GOWN. JEREMY CARE DONE. NEW PUREWICK PLACED. PATIENT C/O PAIN ON THE RIGHT STUMP. PRIMARY RN NOTIFIED. PATIENT DENIES FURTHER CARE OR NEEDS AT THIS TIME.
--- NOTE | 2023-03-14 23:06 | NUR ---
WAS INCONTIENT OF URINE, HAD TURNED AND PURE WICK CAME OFF. WHOLE LINEN AND [place]IGHT[place]OWN CHANED, SKIN CARE. CLEAN ATTENDS AND NEW PUREWICK. R STUMP DRESSING INTACT. C/O 08/21 PAIN. MEDICATED WITH DILAUDID 4MG PO. WATCHING TV AND PLAYING W PHONE
--- NOTE | 2023-03-15 00:28 | NUR ---
TURNS AND REPOSITIONS SEFL IN BED. R STUMP ELEVATED IN PILLOWS. EYES CLOSED, PUREWICK IN PLACE. CONTINUES ON CONTACT ISOLATION
--- NOTE | 2023-03-15 02:31 | NUR ---
Resting, eyes closed. no distress. turns and repositions self in bed. Pure wick in place
--- NOTE | 2023-03-15 03:41 | NUR ---
Awake, visiting with family via phone. c/o R BKA stump 08/21 pain. Medicated with Tylenol 1000mg po. R BKA dressing CDI. repositions self in bed. Pure wick patent draining cloudy/sediments like urine, denies c/o urinary problems.
[2023-03-15 06:09] VITALS: BP 126/63
--- NOTE | 2023-03-15 06:16 | NUR ---
PT AWAKE, C/O 08/21 RBKA PAIN. MEDICATED WITH DILAUDID 4MG PO. COOP WITH VITALS AND SECOND ASSESSMENT. RBKA DRESSING INTACT. ELEVATED WITH PILLOWS. PT TURNS AND REPOSITIONS SELF IN BED. TOLERATING LIQUIDS WELL. USES PUREWICK, DRAINING YELLOW URINE WITH SEDIMENTS. QS. NO N/C. R AC MIDLINE PATENT
[2023-03-15 06:28] LABS: BASOPHILS 1.2 % (0-2); EOSINOPHILS 5.2 % (0-6); HEMATOCRIT 27.9 % (35.0-50.0); LYMPHOCYTES 25.6 % (24-44); MCH 28.6 (27-36); MCHC 32.3 g/dl (30-36); MCV 88.6 fl (81-99); MONOCYTES 7.8 % (0-12); NEUTROPHILS 60.2 % (39-80); PLATELET COUNT 330 K/uL (140-440); RBC 3.15 M/ul (4.3-5.7); RDW 16.3 (10.5-15.0)
[2023-03-15 06:43] LABS: ALBUMIN 2.1 g/dL (3.4-5.0); ALBUMIN/GLOBULIN RATIO 0.47 (1.1-2.4); ANION GAP 10.4 (7-21); BILIRUBIN, TOTAL 0.3 ng/dL (0.2-1.0); BUN/CREATININE RATIO 28.68 (6.0-28.6); CALCIUM 8.6 mg/dL (8.5-10.1); CREATININE, SERUM 1.22 mg/dL (0.55-1.02); POTASSIUM 4.4 mmol/L (3.5-5.1); PROTEIN, TOTAL 6.6 g/dL (6.4-8.2)
--- NOTE | 2023-03-15 07:24 | NUR ---
REPORT FROM ARJUN, RN
--- NOTE | 2023-03-15 08:23 | NUR ---
MORNING ASSESSMENT AND MEDICATIONS GIVEN. PATIENT RATES PAIN TO RIGHT STUMP 4/10 AND SAYS "IT FEELS PRETTY GOOD THIS MORNING." LUNGS ARE CLEAR AND DIM IN THE BASES, PATIENT ENCOURAGED TO DEEP BREATH. BG IS 144 THIS AM WITH 1UNIT OF INSULIN PER SLIDING SCALE AND 4UNITS MEAL BOLUS INSULIN. PATIENT IS SITTING UP IN BED TO EAT BREAKFAST. PATIENT DENIES OTHER NEEDS AT THIS TIME.
[2023-03-15 09:15] VITALS: BP 122/55
--- NOTE | 2023-03-15 10:00 | NUR ---
Spoke with Maria D and she would like placement to [facility]. She has questions regarding a private room, the amount of money whe will be able to keep from her social security check, if they have an PENITENT[facility]ARY she can transition to once she can transfer herself. Called and spoke with GAURAV at [facility]. Pt could possibly have a private room for a short while, but would eventually have a roommate. When she switches from a therapy pt to a technician terminal and repeater care pt, she can keep $69 of her SS check. Vitor Campuzano is part of [facility] which owns [facility]. She could potentially move to PENITENTIARY when they have a medicaid bed open. Pt would have to be able to transfer self. I returned and passed this information on to Maria D. She would like to cont. with plan for placement to [facility] when a bed is open.
--- NOTE | 2023-03-15 10:10 | NUR ---
PATIENT GIVEN 4MG OF PO DILAUDID FOR 7/10 RIGHT LEG PAIN AFTER PHYSICAL THERAPY. FRESH ICE WATER PROVIDED.
--- NOTE | 2023-03-15 10:55 | NUR ---
PATIENT IS RESTING ON HER RIGHT SIDE, PATIENT RATED PAIN 5/10 AFTER PO DILAUDID.
--- NOTE | 2023-03-15 11:34 | NUR ---
Spoke with Alejandrina from [facility]. Pt does have nursing home medicaid for placement to a SNF. She states Rossi is the [employer]. Let her know I have left a message for Rossi. [facility] has a bed open and I am wanting to schedule transport and a time for tomorrow if possible. Alejandrina requests GAURAV from [facility] email her and she will confirm.
--- NOTE | 2023-03-15 12:36 | NUR ---
DR. EWING IN TO SEE PATIENT. PATIENT GIVEN 1G OF PO TYLENOL FOR 7/10 RIGHT LEG PAIN. PATIENT IS SITTING UP IN BED TO EAT LUNCH. BG IS 165, 1UNIT OF NOVOLOG PER SLIDING SCALE, 4UNITS OF MEALTIME BOLUS INSULIN. AUGMENTIN GIVEN WITH LUNCH.
--- NOTE | 2023-03-15 12:40 | NUR ---
PATIENT GIVEN PO DOXYCYCLINE.
--- NOTE | 2023-03-15 13:38 | NUR ---
PATIENT GIVEN 4MG OF PO DILAUDID FOR 8/10 RIGHT LEG PAIN.
[2023-03-15 13:45] VITALS: BP 108/65
[2023-03-15] MEDS ORDERED: AMOX TR-K CLV1 EACH PO (14:31)
[2023-03-15] MEDS ORDERED: DOXYCYCLINE HY100 MG PO (14:32)
[2023-03-15] MEDS ORDERED: FLUCONAZOLE200 MG PO (14:33)
[2023-03-15] MEDS ORDERED: DILAUDID2 MG PO (14:40)
[2023-03-15] MEDS ORDERED: NYSTATIN15 G1 TOP (14:40)
[2023-03-15] MEDS ORDERED: GABAPENTIN300 MG PO (14:41)
--- NOTE | 2023-03-15 14:56 | PATH ---
[facility] [address], [place] [address] Signed SPECIMEN(S): A RIGHT LOWER EXTREMITY SPECIMEN SOURCE: A. RIGHT LOWER EXTREMITY CLINICAL HISTORY: Osteomyelitis right BKA FINAL PATHOLOGIC DIAGNOSIS: Right lower extremity: - Right ydgqm-evo-qcfx amputation with absent first and second digits. - Focal scar and ulceration at the site of the resection margin of the first and second digits. - Extensive soft tissue necrosis with acute inflammation at the ulceration site. - Focal acute osteomyelitis. JVR:shola MICROSCOPIC EXAMINATION: Histologic sections of all submitted blocks are examined by light microscopy. These findings, together with the gross examination, support the pathologic diagnosis. GROSS DESCRIPTION: The specimen, labeled and designated "Hayde Pedraza, " and designated on the requisition "right lower extremity extensive osteomyelitis foot," is received in formalin and consists of right wgstx-aho-numw amputated leg that is 29.5 cm from ytjj-vb-uvayqvwjf margin and has a 21.6 x 8.2 cm foot is present. The third, fourth, and fifth digits are present with pink smooth nails. The first and second digits have been previously removed. The resection site displays a 6.6 x 0.3 cm jagged scar with a 0.7 x 0.5 cm ulcerated defect present at the proximal aspect. The scar and defect are 21.5 cm from the closest skin and soft tissue resection margin. Sectioning through the scar reveals a cavity containing yellow-green liquefied tissue that is 4.6 cm in greatest dimension. The previously described defect communicates with this cavity and displays adjacent pink softened bone. The remaining skin is pale pink with scant areas of hair. A heart-shaped hoffmann-black tattoo is present on the medial aspect of the lower leg measuring 4.8 x 4.5 cm. A second hoffmann-black PATIENT NAME: LINH PEDRAZA PATHOLOGY DATE OF : 65 REPORT #: [id number] PHYSICIAN: [facility] PCP: ABIMBOLA TAVERAS MD REPORT IS CONFIDENTIAL AND NOT TO BE RELEASED WITHOUT AUTHORIZATION [facility] [address], [place] [address] Signed tattoo is present on the lateral aspect of the lower leg containing stars, is 4.2 x 3.6 cm. The anterior tibial vessels display less than 10% occlusion. The posterior tibial vessels display scant areas of yellow calcification with approximately 10% % occlusion. The surgical resection margin is grossly viable. Sign Writer Hand sections are submitted in five cassettes. Cassette Summary: (A1) skin and soft tissue resection margin, shave, anterior tibial vessels (A2) skin with scar to underlying soft tissue, bone (Cassette placed into Decal Stat prior to processing.) (A3) defect on skin to underlying soft tissue and cavity, posterior tibial vessels (A4) bone resection margins, shave (Cassette placed into Decal Stat prior to processing.) FB (under the direct supervision of a pathologist) The Gross Description was prepared using a voice recognition system. The report was reviewed for accuracy; however, sound-alike word errors, addition and/or deletions may occur. If there is any question about this report, please contact Client Services. PERFORMING LABORATORY: Technical component was performed by [facility], [address] [place] [id number] (CLIA# [id number]). Professional interpretation was performed by [facility] - [facility], [address] [place] [address] [address] [place] [address] (CLIA#: [id number]). Diagnostician: Sebastian Wilkerson MD Pathologist Electronically Signed 03/15/2023 Copies: ~ PATIENT NAME: LINH PEDRAZA CHARLES PATHOLOGY DATE OF : 65 REPORT #: [id number] PHYSICIAN: [facility] PCP: ABIMBOLA TAVERAS MD REPORT IS CONFIDENTIAL AND NOT TO BE RELEASED WITHOUT AUTHORIZATION
--- NOTE | 2023-03-15 16:29 | NUR ---
Call light answered. Pt stated, "I think I am wet." Charlene care and brief change provided. New purewick in place. Call light within reach. No other needs at this time.
--- NOTE | 2023-03-15 17:16 | NUR ---
PATIENT IS SITTING UP TO EAT DINNER. 1UNIT OF INSULIN FOR BG OF 143 AND 4 UNITS OF MEAL TIME BOLUS INSULIN. PATIENT GIVEN 4MG OF PO DILAUDID FOR 7/10 RIGHT LEG PAIN. PO AUGMENTIN AND LIPITOR GIVEN WELL. PATIENT DENIES NEEDS AT THIS TIME.
[2023-03-15 18:20] VITALS: BP 139/63
--- NOTE | 2023-03-15 18:58 | NUR ---
PATIENT REPORTS PAIN IS 5/10 AT THIS TIME.
[2023-03-15 20:29] VITALS: BP 141/72
--- NOTE | 2023-03-15 20:37 | NUR ---
In bed, talking to sister via phone. no c/o pain at this time. On room air, lungs clear, dim at bases, no cough at thist rita. RAC MIDLINE IV site intact, flushes easily. R BKA stump dressing CDI. dependent, pt aware of need to elevate stump with 2 pillows and bent at the knee area. "I know, but it hurts". tolerating liquids well. no c/o n/v. Continues on COntact Isolation
--- NOTE | 2023-03-15 22:08 | NUR ---
awake, sitting up in bed, c/o RBKA stump pain. medicated with 4mg po dilaudid. tolerating liquids well, on room air, no n/v. pure wick in place
--- NOTE | 2023-03-16 00:30 | NUR ---
RESTING, EYES CLOSED, NO DISTRESS, PURE WICK IN PLACE, RBKA DRESSING INTACT
--- NOTE | 2023-03-16 01:28 | NUR ---
pt uses call light, c/o 09/20 rbka pain, medicated with tylenol po. Repositioned in bed, RBKA elevated in 1 pillow, dressing intact. purewick in place
--- NOTE | 2023-03-16 02:35 | NUR ---
HOB elevated, eyes closed, no distress, Pure wick in place, draining yellow urine with sediments. dressing to RBKA CDI, elevated in pillow
[2023-03-16 05:30] VITALS: BP 134/55
[2023-03-16 05:39] LABS: HEMOGLOBIN 9.1 g/dL (12.0-18.0); MCH 29.5 (27-36); MCHC 33.8 g/dl (30-36); MCV 87.3 fl (81-99); PLATELET COUNT 339 K/uL (140-440); RBC 3.09 M/ul (4.3-5.7); RDW 16.2 (10.5-15.0)
--- NOTE | 2023-03-16 05:46 | NUR ---
Pt has been medicated with Tylenol 1x and DIlaudid 4mg po twice per pain RBKA. meds effective. RBKA stump dressing in place CDI, elevated w pillows. no drainage noted. Uses Purewick, draining cloudy yellow urine. large amounts. red areas between pannus and gluteal folds improving. RAC midline patent. On room air, lungs clear dim at bases. accidentally dumped coffee in her bed, bed linen changed. Pt stated, cofee was cold. Helps with repositioning. Pt is scheduled to be discharge to [facility] sometime today for further rehad/strenghthening
[2023-03-16 05:53] LABS: ALBUMIN 2.1 g/dL (3.4-5.0); ALBUMIN/GLOBULIN RATIO 0.46 (1.1-2.4); ANION GAP 12.3 (7-21); BILIRUBIN, TOTAL 0.3 ng/dL (0.2-1.0); BUN/CREATININE RATIO 24.57 (6.0-28.6); CALCIUM 8.8 mg/dL (8.5-10.1); CREATININE, SERUM 1.18 mg/dL (0.55-1.02); POTASSIUM 4.3 mmol/L (3.5-5.1); PROTEIN, TOTAL 6.7 g/dL (6.4-8.2)
[2023-03-16 06:07] LABS: BASOPHILS, MANUAL DIFF 1; EOSINOPHILS, MANUAL DIFF 2; LYMPHOCYTES, MANUAL DIFF 35; MONOCYTES, MANUAL DIFF 7; NEUTROPHILS, MANUAL DIFF 55
--- NOTE | 2023-03-16 07:05 | NUR ---
REPORT RECEWIVED FROM INDUSTRIAL MANUFACTURING TECHNICIAN RN ARJUN. PATIENT IS AWAKE AND SITTING UPRIGHT IN BED. PATIENT STATED NO FURTHER NEEDS AT THIS TIME. CALL LIGHT AND PERSONAL BELONGINGS ARE WITHIN REACH.
--- NOTE | 2023-03-16 07:42 | NUR ---
AIR TABLE OPERATOR entered pt room to obtain blood glucose. BG obtained. Charlene care and brief change obtained. New purewick in place. Call light within reach. No other needs at this time.
--- NOTE | 2023-03-16 08:03 | NUR ---
UR NOTE MCG KNEE: AMPUTATION ABOVE OR BELOW KNEE (ISC) 03/14/23 VARIANCE GL DAY 3 03/15/23 MET GL DAY 3 03/16/23 MET GL DAY 4
--- NOTE | 2023-03-16 08:05 | NUR ---
0800 AND 0900 MEDICATIONS ADMINISTERED PER THE EMAR. FULL ASSESSMENT COMPLETE AND DOCUMENTED IN THE CHART. PATIENT STATED PAIN WAS 4/10 AND NOT REQUESTING PAIN MEDICATIONS AT THIS TIME. PATIENT LUNG SOUNDS ARE CLEAR BUT DIMINISHED IN THE BASES BILATERALLY. NORMAL S1 AND S2 AUSCULTATED. RADIAL PULSES ARE STRONG BILATERALLY. MIDLINE DRESSING IS CLEAN, DRY, AND INTACT. MIDLINE IS SALINE LOCKED AND FLUSHED WELL WITH 10 ML NORMAL SALINE. BOWEL TONES ARE ACTIVE IN ALL FOUR QUADRANTS. PATIENT IS EATING BREAKFAST AT THIS TIME. PATIENT IS SITTING UPRIGHT IN BED. PATIENT WITH PUREWICK IN PLACE. DRESSING ON THE RIGHT LOWER EXTREMITY IS CLEAN, DRY, AND INTACT. PATIENT STATED NO FURTHER NEEDS AT THIS TIME. CALL LIGHT AND PERSONAL BELONGINGS ARE WITHIN REACH.
[2023-03-16 09:48] VITALS: BP 125/67
--- NOTE | 2023-03-16 10:30 | NUR ---
Spoke with Maria D. Updated orders have been sent and accepted, wc van is scheduled, and I notified Rossi JHA at [facility] she will be leaving today. Family have not delivered her wc yet, I let her know we can send her with one of our if needed. She denies other needs. Packet with orders and other paperwork completed and given to the race steward. Pt will dc at 1415 per wc van.
--- NOTE | 2023-03-16 11:31 | NUR ---
PATIENT IS SITTING UPRIGHT IN BED. PATIENT STATED HER PAIN WAS 4/10 AFTER THE PRN DILAUDID WAS ADMINISTERED. MULTIGRAPH OPERATOR IS AT THE BEDSIDE AND BRAIDING HER HAIR. PATIENT STATED NO FURTHER NEEDS AT THIS TIME. CALL LIGHT AND PERSONAL BELONGINGS ARE WITHIN REACH.
--- NOTE | 2023-03-16 11:35 | NUR ---
MS ROUNDS. PT EXHIBITED STRONG SPIRITUAL RESOURCES. EXPRESSED HOPE AND OPTIMISM. PROVIDED HOSPITALITY; PROVIDED PRAYER. PT EXPRESSED GRATITUDE.
--- NOTE | 2023-03-16 12:03 | NUR ---
PATIENT 1200 MEDICATIONS ADMINISTERED PER THER EMAR. PRN TYLENOL ADMINISTERED FOR 07/21. PATIENT FINISHED WITH LUNCH AND ATE 50%. PATIENT STATED NO FURTHER NEEDS AT THIS TIME. CALL LIGHT AND PERSONAL BELONGINGS ARE WITHIN REACH.
[2023-03-16 13:56] VITALS: BP 140/64
--- NOTE | 2023-03-16 14:48 | NUR ---
REPORT GIVEN TO THEODORE AT [facility]. ALL QUESTIONS ANSWERED. CALL ENDED.
== END 2023-03-16 14:15 | DRG 617 ==
LOC: ED 10:49 → MS 10:51
PROVIDERS: Emergency Medicine; Family Medicine; Surgery; ADMIT Internal Medicine; ATTEND Family Medicine
PROC: 0Y6H0Z2 Detachment at Right Lower Leg, Mid, Open Approach (ICD-10-PCS; principal; 2023-03-10 10:00)
DX: E11.69 Type 2 diabetes mellitus with other specified complication (principal); E11.52 Type 2 diabetes mellitus with diabetic peripheral angiopathy with gangrene; I13.0 Hypertensive heart and chronic kidney disease with heart failure and stage 1 through stage 4 chronic kidney disease, or unspecified chronic kidney disease; L03.115 Cellulitis of right lower limb; M86.671 Other chronic osteomyelitis, right ankle and foot; M86.171 Other acute osteomyelitis, right ankle and foot; Z68.41 Body mass index [BMI] 40.0-44.9, adult; N17.9 Acute kidney failure, unspecified; F31.9 Bipolar disorder, unspecified; E87.6 Hypokalemia; E11.22 Type 2 diabetes mellitus with diabetic chronic kidney disease; I50.9 Heart failure, unspecified; E66.9 Obesity, unspecified; E11.621 Type 2 diabetes mellitus with foot ulcer; J44.9 Chronic obstructive pulmonary disease, unspecified; N18.30 Chronic kidney disease, stage 3 unspecified; L97.514 Non-pressure chronic ulcer of other part of right foot with necrosis of bone; I70.235 Atherosclerosis of native arteries of right leg with ulceration of other part of foot; E78.5 Hyperlipidemia, unspecified; G54.6 Phantom limb syndrome with pain; E83.42 Hypomagnesemia; Z88.5 Allergy status to narcotic agent; Z88.1 Allergy status to other antibiotic agents; Z88.2 Allergy status to sulfonamides; Z89.411 Acquired absence of right great toe; Z89.421 Acquired absence of other right toe(s); Z79.02 Long term (current) use of antithrombotics/antiplatelets; Z79.4 Long term (current) use of insulin; Z79.899 Other long term (current) drug therapy; Z89.612 Acquired absence of left leg above knee; Z87.891 Personal history of nicotine dependence; Z95.820 Peripheral vascular angioplasty status with implants and grafts; Z79.51 Long term (current) use of inhaled steroids; Z99.3 Dependence on wheelchair
CPT/HCPCS: 01232; 36415; 36569; 36591; 64445; 64447; 73590; 73630; 73723; 76942; 80048; 80053; 80202; 83735; 84132; 85025; 85651; 87070; 87075; 87186; 87205; 88307; 88311; 94760; 94762; 96365; 96366; 96367; 96375; 96376; 97110; 97163; 97530; 97535; A9270; A9579; G0378; J0131; J0692; J0735; J0780; J1170; J1450; J1644; J1815; J1885; J2001; J2250; J2405; J2765; J3010; J3370; J3475; J3480; J3490; J7040; J7060; J7121

== ENCOUNTER 2023-04-21 07:50 | Day surgery (SDC) | payer OTHER ==
[~2023-04-21] VITALS: Ht 142.2 cm; Wt 123.0 kg
[~2023-04-21 07:50] MED LIST changes: +CEFAZOLIN SODIUM 3 GM/30 ML SYR IV SCH; +CLEOCIN HCL300 MG PO; +DILAUDID2 MG PO; +FLUCONAZOLE200 MG PO; +FLUTICASONE PRO12 G1 INH; +GABAPENTIN300 MG PO; +IBLOOD GLUCOSE TEST STRIP 1 EA TEST VI PRN; +LACTATED RINGER'S 1,000 ML IV SCH; +LIDOCAINE HCL 1% 5 ML SDV INJ ONE; +NYSTATIN15 G1 TOP; +ONDANSETRON HCL4 MG PO
[2023-04-21 08:47] LABS: BASOPHILS 0.5 % (0-2); EOSINOPHILS 2.4 % (0-6); HEMATOCRIT 33.4 % (35.0-50.0); HEMOGLOBIN 11.2 g/dL (12.0-18.0); LYMPHOCYTES 17.7 % (24-44); MCH 29.4 (27-36); MCHC 33.7 g/dl (30-36); MCV 87.4 fl (81-99); MONOCYTES 6.4 % (0-12); PLATELET COUNT 324 K/uL (140-440); RBC 3.82 M/ul (4.3-5.7); RDW 15.1 (10.5-15.0)
[2023-04-21 08:48] VITALS: BP 122/59
[2023-04-21 09:02] LABS: ALBUMIN 2.8 g/dL (3.4-5.0); ALBUMIN/GLOBULIN RATIO 0.6 (1.1-2.4); ANION GAP 11.5 (7-21); BILIRUBIN, TOTAL 0.5 ng/dL (0.2-1.0); BUN/CREATININE RATIO 42.5 (6.0-28.6); CALCIUM 8.9 mg/dL (8.5-10.1); CREATININE, SERUM 2.4 mg/dL (0.55-1.02); POTASSIUM 2.5 mmol/L (3.5-5.1); PROTEIN, TOTAL 7.5 g/dL (6.4-8.2)
[2023-04-21] MEDS ORDERED: JARDIANCE25 MG PO (09:34)
[2023-04-21] MEDS ORDERED: DILAUDID1 MG/ML PO (09:34)
[2023-04-21] MEDS ORDERED: OZEMPIC0.25 MG/02 SUB-Q (09:52)
[2023-04-21] MEDS ORDERED: SENNA8.6 MG PO (09:53)
[2023-04-21] MEDS ORDERED: fentaNYL citrate 100 MCG/2 ML VIAL ONE (10:02)
[2023-04-21] MEDS ORDERED: ondansetron HCL 4 MG/2 ML VIAL ONE ×2 (10:02→10:14)
[2023-04-21] MEDS ORDERED: LIDOCAINE HCL 2% 5 ML SDV ONE (10:02)
[2023-04-21] MEDS ORDERED: propofoL 200 MG/20 ML VIAL ONE (10:02)
[2023-04-21] MEDS ORDERED: DOXYCYCLINE HY100 MG PO (11:13)
[2023-04-21] MEDS ORDERED: ACETAMINOPHEN 325 MG TAB PO PRN (11:15)
[2023-04-21] MEDS ORDERED: POTASSIUM CHLORIDE 10 MEQ TABCR PO ONE (11:30)
[2023-04-21 11:56] VITALS: BP 134/60
[2023-04-21 12:45] VITALS: BP 104/55
[2023-04-21 13:40] VITALS: BP 109/61
--- NOTE | 2023-04-23 11:55 | EKG ---
[facility] [address] [facility] [place] [address] Signed Normal sinus rhythm Left axis deviation Left bundle branch block Abnormal ECG When compared with ECG of 03-DEC-2021 21:41, premature ventricular complexes are no longer present premature supraventricular complexes are no longer present Confirmed by Earnest Aleman MD ([id number]) on 04/23/2023 11:55:47 AM Electronically Signed By: EARNEST ALEMAN 04/23/23 1155 PATIENT NAME: MILOLINHAILEEN SOTO Electrocardiogram DATE OF : 65 PHYSICIAN: EARNEST ALEMAN REPORT #: [id number] REPORT IS CONFIDENTIAL AND NOT TO BE RELEASED WITHOUT AUTHORIZATION
--- NOTE | 2023-04-24 12:16 | OR ---
[facility] [address] [place], [place] [address] Signed DATE OF OPERATION: 04/21/2023 SURGEON: Nupur Ewing MD PREOPERATIVE DIAGNOSES: 1. History of right below-knee amputation for chronic persistent recurrent lower extremity osteomyelitis. 2. Low-grade cellulitis right below-knee amputation stump site with necrotic fatty tissue and skin lateral medial incision sites. POSTOPERATIVE DIAGNOSES: 1. History of right below-knee amputation for chronic persistent recurrent lower extremity osteomyelitis. 2. Low-grade cellulitis right below-knee amputation stump site with necrotic fatty tissue and skin lateral medial incision sites. 3. collection. PROCEDURES: 1. Exam under anesthesia. 2. Debridement of flap wound edges medially and laterally including excision of soft tissue and skin. 3. Banjo curette debridement of sub flap soft tissue space on below-knee amputation. 4. Pulse irrigation of stump space and application of Irrisept chlorhexidine solution. ANESTHESIA: Local with monitored anesthesia care, Taye Varela CRNA (Marcaine 0.25% without epinephrine 10 mL.). INDICATION: This 58-year-old white woman is a patient of Alfreda Taveras MD. She has long-standing osteomyelitis problems of the right lower extremity and distant history of a left above-knee amputation. She underwent right below-knee amputation by ut several weeks ago after clinical resolution of her cellulitis associated with her foot and confirmation of osteomyelitis of her right forefoot bones. Nylon sutures were allowed to remain in place. Good viability of the flap and muscle was noted at the time of amputation. She has had a low-grade erythematous change of the skin of the lower extremity amputation site. The posterior flap remains viable, but there has developed some separation of skin and obviously ischemic/necrotic fat in the lateral aspect bilaterally. Debridement of this tissue is needed at this time. Electronically Signed By: NUPUR EWING MD 04/24/23 1216 PATIENT NAME: LINH PEDRAZA OPERATIVE REPORT DATE OF : 65 REPORT #: [id number] PHYSICIAN: NUPUR EWING MD PCP: ALFREDA TAVERAS MD REPORT IS CONFIDENTIAL AND NOT TO BE RELEASED WITHOUT AUTHORIZATION [facility] [address] [place], [place] [address] Signed The patient is found to have a potassium of only 2.5 this morning on lab studies and general anesthesia is deemed inadvisable on that basis. Monitored anesthesia care alone should be adequate to allow for debridement, examination of the wound. The patient understands the risk of the procedure including, but not limited to bleeding, infection, and need for additional future debridement and other treatment. Understanding that she wished to proceed. FINDINGS: Marginally viable fatty tissue was noted laterally in the edges of the incision. This was debrided including fat and subcutaneous tissue otherwise. There is a fibrinous peel over muscle and the muscle beneath it was viable. Interrogation of the sub flap space showed a space of ceruminous tissue. Debridement with a banjo curette showed nonviable fatty tissue which was debrided fully. The wound was given pulse irrigation in addition to the sharp debridement and application of Irrisept chlorhexidine solution as well. The wound was not entirely opened, though it is probable that a wound VAC dressing approach would be most appropriate. DESCRIPTION OF PROCEDURE: The patient was brought to the operating room, given intravenous sedation. Preoperative antibiotics had been given including Ancef 2 g. Examination of the right below-knee amputation stump showed erythematous change of the flap itself, but highly viable and vascular. The below knee area was prepared with a chlorhexidine solution and draped sterilely. Removal of lateral nylon sutures which remained in place was undertaken and debridement of gummy nonviable fatty tissue undertaken mostly with sharp dissection. Beneath this area was viable muscle with a fibrinous peel on it. A banjo curette was used to debride this more fully. Similar dissection was undertaken at the medial aspect of the incision. Interrogation of the space beneath the closed flap showed the space to be in continuity. Probing this with a banjo curette allowed for ceruminous fluid to drain. This space was then aggressively debrided with a banjo curette delivering mucoid necrotic fatty tissue. There was no yanna abscess by any means. Once this was complete, pulse irrigation in the low setting was undertaken with saline solution to clean the space out completely. Opening of the flap would have allowed for complete opening of the distal stump and there being no availability of a wound VAC device for today was deemed inadvisable. Ultimately, irrigation of the space with chlorhexidine solution (Irrisept) was accomplished as well. Hemostasis was assured with electrocautery and 10 mL of 0.25% Marcaine without epinephrine was injected in the lateral aspects of debridement area. Each side was packed with Kerlix gauze for easy removal in the stump. Additionally, wrapped with Kerlix gauze and ultimately an Hawk wrap. The patient was allowed to emerge from sedation and taken to the recovery room in good condition having suffered no known complications. Sponge, needle, and instrument counts were reported as correct x3. Electronically Signed By: NUPUR EWING MD 04/24/23 1216 PATIENT NAME: LINH PEDRAZA OPERATIVE REPORT DATE OF : 65 REPORT #: [id number] PHYSICIAN: NUPUR EWING MD PCP: ALFREDA TAVERAS MD REPORT IS CONFIDENTIAL AND NOT TO BE RELEASED WITHOUT AUTHORIZATION [address] [place] [address] Signed MD DB Urias/SUKHDEEP /[id number] cc: Alfreda Taveras MD Copies: ~ Electronically Signed By: NUPUR EWING MD 04/24/23 1216 PATIENT NAME: LINH PEDRAZA OPERATIVE REPORT DATE OF : 65 REPORT #: [id number] PHYSICIAN: NUPUR EWING MD PCP: ALFREDA TAVERAS MD REPORT IS CONFIDENTIAL AND NOT TO BE RELEASED WITHOUT AUTHORIZATION
== END 2023-04-21 14:28 | disposition home or self-care (01) ==
LOC: OPS 07:50 → DS 07:50 → OPS 09:30 → DS 09:30 → OPS 14:28
PROVIDERS: ATTEND Surgery
PROC: 0JBN0ZZ Excision of Right Lower Leg Subcutaneous Tissue and Fascia, Open Approach (ICD-10-PCS; principal; 2023-04-21 09:30)
DX: E11.69 Type 2 diabetes mellitus with other specified complication (principal); M86.671 Other chronic osteomyelitis, right ankle and foot; L03.115 Cellulitis of right lower limb; M79.89 Other specified soft tissue disorders; I11.0 Hypertensive heart disease with heart failure; I50.9 Heart failure, unspecified; J45.909 Unspecified asthma, uncomplicated; K21.9 Gastro-esophageal reflux disease without esophagitis; G47.30 Sleep apnea, unspecified; Z89.612 Acquired absence of left leg above knee; Z89.611 Acquired absence of right leg above knee; Z90.711 Acquired absence of uterus with remaining cervical stump; Z87.891 Personal history of nicotine dependence; Z88.5 Allergy status to narcotic agent; Z88.1 Allergy status to other antibiotic agents; Z88.0 Allergy status to penicillin; Z79.4 Long term (current) use of insulin; Z79.899 Other long term (current) drug therapy
CPT/HCPCS: 00400; 36415; 80053; 85025; 87070; 87075; 87186; 87205; 93005; 93010; A9270; J0690; J2001; J2405; J2704; J3010; J7121

== ENCOUNTER 2023-05-10 07:57 | Day surgery (SDC) | payer OTHER ==
[~2023-05-10] VITALS: Ht 142.2 cm; Wt 123.1 kg
[~2023-05-10 07:57] MED LIST changes: +DILAUDID1 MG/ML PO; +OZEMPIC0.25 MG/02 SUB-Q; +SENNA8.6 MG PO
[2023-05-10 08:23] VITALS: BP 139/74
[2023-05-10] MEDS ORDERED: ACETAMINOPHEN 1,000 MG/100 ML VIAL ONE (09:14)
[2023-05-10] MEDS ORDERED: propofoL 200 MG/20 ML VIAL ONE (09:14)
[2023-05-10] MEDS ORDERED: ondansetron HCL 4 MG/2 ML VIAL ONE (09:15)
[2023-05-10] MEDS ORDERED: IBLOOD GLUCOSE TEST STRIP 1 EA TEST VI PRN (10:15)
[2023-05-10] MEDS ORDERED: NALOXONE HCL 0.4 MG SYR IV PRN (10:15)
[2023-05-10] MEDS ORDERED: fentaNYL citrate 100 MCG/2 ML VIAL IV PRN (10:15)
--- NOTE | 2023-05-10 10:22 | NUR ---
[facility]23 [facility] PACU WIDE AWAKE WITH NO C/O'S. WOUND VAC INTACT TO R BKA SITE. SUCTION AT 125MMHG. 1015 SITTING UP IN BED SIPPING ON WATER. NO C/O'S.
[2023-05-10] MEDS ORDERED: ACETAMINOPHEN 500 MG TAB PO PRN (10:30)
[2023-05-10] MEDS ORDERED: IBUPROFEN 600 MG TAB PO PRN (10:30)
[2023-05-10 10:32] VITALS: BP 136/83
[2023-05-10] MEDS ORDERED: IBUPROFEN600 MG PO (10:33)
[2023-05-10] MEDS ORDERED: ACETAMINOPHEN500 MG PO (10:34)
--- NOTE | 2023-05-10 14:00 | OR ---
[facility] [address] [place], [place] [address] Signed DATE OF OPERATION: 05/10/2023 SURGEON: Nupur Ewing MD PREOPERATIVE DIAGNOSIS: History of right below-knee amputation stump soft tissue infection, status post debridement. POSTOPERATIVE DIAGNOSES: 1. History of right below-knee amputation stump soft tissue infection, status post debridement. 2. Lateral 4 cm soft tissue defect with granulation, central dense scab 2 cm healing. 3. Medial 3 cm soft tissue defect, granulating. PROCEDURES: 1. Exam under anesthesia. 2. Debridement of wounds x3. 3. Application of wound VAC device to right below-knee amputation stump wounds. ANESTHESIA: Local with monitored anesthesia care; Jaclyn Davis CRNA INDICATIONS: This 58-year-old white woman underwent right below-knee amputation by ut a number of weeks ago following intractable cellulitis and osteomyelitis of her forefoot. She has been a patient of Dr. Shay Palomino and is seen now by Dr. Alfreda Taveras. A few weeks ago, she underwent debridement of the lateral aspect of her right below-knee stump amputation as tissue showed fatty necrosis and serous drainage. Debridement was undertaken. The central portion of the flap appeared viable, but there appeared to be probably some space of seromatous space in the stump itself. Local wound care has been initiated. It was found that she does have access to wound VAC device through her extended care facility at [facility]. She now returns for additional debridement and application of wound VAC as appropriate. The risk of bleeding, infection, failure of wound care, and so forth were all reviewed with her, she understands and wished to proceed. FINDINGS: Remarkably good granulation was noted in the lateral and medial aspects of the wound that was previously debrided. The tissue was quite viable. The soft tissue pad of the stump itself appeared to be without seromatous collection. The center portion of the incision still had sutures in place and a dense scab. The sutures were removed. The Electronically Signed By: NUPUR EWING MD 05/10/23 1400 PATIENT NAME: LINH PEDRAZA OPERATIVE REPORT DATE OF : 65 REPORT #: [id number] PHYSICIAN: NUPUR EWING MD PCP: ALFREDA TAVERAS MD REPORT IS CONFIDENTIAL AND NOT TO BE RELEASED WITHOUT AUTHORIZATION [facility] [address], [place] [address] Signed scab removed. Application of wound VAC to the three areas of concern was accomplished without problem and she likely to anticipate a skin graft to the site in the near future. PROCEDURE IN DETAIL: The patient was brought to the operating room, placed in supine position. She was given intravenous sedation. Preoperative antibiotic Ancef was given. The right lower extremity stump was then prepared with a chlorhexidine solution and draped sterilely. After removal of the gauze packing in the medial and lateral aspects of her stump wounds. Examination of the wounds under IV sedation showed them to be granulating well. There appeared to be no space in the central portion of the flap as there had been before. Remarkable granulation was noted both medially and laterally. A central scab related to the flap incision was debrided sharply. The sutures that remain in place were removed as well. Application of OpSite dressing to provide a "bridge" between the areas of application of sponge, the wound VAC was carefully applied. A bridge of black foam sponge was fashioned as were portions of foam to the medial, lateral and central wound sites. Application of the adhesive and ultimately the suction device for the KCI wound VAC device was undertaken without problem. The wound VAC was applied suctioned and a good seal was maintained. The patient was then taken recovery room in good condition. It appears that she will likely tolerate skin grafting in the very near future. Arrangements will be made to accomplish this hopefully in the next few days. MD DB Urias/SUKHDEEP /[id number] cc: PATRIZIA [address] Dr. Electronically Signed By: NUPUR EWING MD 05/10/23 [facility] PATIENT NAME: LINH PEDRAZA OPERATIVE REPORT DATE OF : 65 REPORT #: [id number] PHYSICIAN: NUPUR EWING MD PCP: ALFREDA TAVERAS MD REPORT IS CONFIDENTIAL AND NOT TO BE RELEASED WITHOUT AUTHORIZATION [facility] [address], [place] [address] Signed Copies: PALOMINO,SHAY F DPM ~ Electronically Signed By: NUPUR EWING MD 05/10/23 1400 PATIENT NAME: LINH PEDRAZA OPERATIVE REPORT DATE OF : 65 REPORT #: [id number] PHYSICIAN: NUPUR EWING MD PCP: ALFREDA TAVERAS MD REPORT IS CONFIDENTIAL AND NOT TO BE RELEASED WITHOUT AUTHORIZATION
== END 2023-05-10 11:00 | disposition home or self-care (01) ==
LOC: DS 07:57 → OPS 07:57
PROVIDERS: ATTEND Surgery
PROC: 0JDN0ZZ Extraction of Right Lower Leg Subcutaneous Tissue and Fascia, Open Approach (ICD-10-PCS; principal; 2023-05-10 09:00)
DX: Z47.81 Encounter for orthopedic aftercare following surgical amputation (principal); E66.9 Obesity, unspecified; Z68.44 Body mass index [BMI] 60.0-69.9, adult; E11.9 Type 2 diabetes mellitus without complications; Z87.891 Personal history of nicotine dependence; Z89.612 Acquired absence of left leg above knee
CPT/HCPCS: J0131; J0690; J2405; J2704; J7121

== ENCOUNTER 2023-08-18 07:46 | Emergency (ER) | payer OTHER ==
[~2023-08-18] VITALS: Ht 142.2 cm; Wt 121.6 kg
[~2023-08-18 07:46] MED LIST changes: +ACETAMINOPHEN500 MG PO; -CEFAZOLIN SODIUM 3 GM/30 ML SYR IV SCH; -IBLOOD GLUCOSE TEST STRIP 1 EA TEST VI PRN; +IBUPROFEN600 MG PO; -LACTATED RINGER'S 1,000 ML IV SCH; -LIDOCAINE HCL 1% 5 ML SDV INJ ONE; +VICTOZA 3-0.6 MG/0.1 SUB-Q
[2023-08-18] MEDS ORDERED: ondansetron HCL 4 MG/2 ML VIAL IV ONE ×2 (08:00→09:15)
[2023-08-18 08:03] LABS: BASOPHILS 0.6 % (0-2); HEMATOCRIT 38.3 % (35.0-50.0); HEMOGLOBIN 12.4 g/dL (12.0-18.0); LYMPHOCYTES 15.4 % (24-44); MCH 28.2 (27-36); MCHC 32.4 g/dl (30-36); MCV 86.9 fl (81-99); MONOCYTES 6.3 % (0-12); NEUTROPHILS 75.7 % (39-80); PLATELET COUNT 310 K/uL (140-440); RBC 4.41 M/ul (4.3-5.7); RDW 15.4 (10.5-15.0)
[2023-08-18 08:21] LABS: ALBUMIN 3.1 g/dL (3.4-5.0); ALBUMIN/GLOBULIN RATIO 0.65 (1.1-2.4); ANION GAP 10.3 (7-21); BILIRUBIN, TOTAL 0.3 ng/dL (0.2-1.0); BUN/CREATININE RATIO 29.69 (6.0-28.6); CALCIUM 8.7 mg/dL (8.5-10.1); CREATININE, SERUM 1.65 mg/dL (0.55-1.02); POTASSIUM 4.3 mmol/L (3.5-5.1); PROTEIN, TOTAL 7.9 g/dL (6.4-8.2)
[2023-08-18] MEDS ORDERED: droPERidol 5 MG/2 ML VIAL IV ONE (09:15)
[2023-08-18] MEDS ORDERED: SODIUM CHLORIDE 0.9% 500 ML IV PRN (09:15)
[2023-08-18 10:48] LABS: BILIRUBIN, URINE NEGATIVE (negative); BLOOD/HGB, URINE SMALL (Negative); KETONE, URINE NEGATIVE (Negative); LEUK ESTERASE, URINE MODERATE (negative); NITRITE, URINE NEGATIVE (negative); PH, URINE 7.5 (5-7)
[2023-08-18 10:56] LABS: BACTERIA, URINE 1+ /hpf (negative); CASTS, URINE NONE SEEN \\lpf; COLLECTION TYPE, URINE CATH; CRYSTALS, URINE NONE SEEN (0-1+); EPITHELIAL CELLS, URINE SQUAMOUS 1+ /lpf (0-1+); RED BLOOD CELLS, URINE 0-1 /hpf (0-5); REFLEX CULTURE, URINE Yes (No); WHITE BLOOD CELLS, URINE >50 /HPF (0-5)
[2023-08-18] MEDS ORDERED: CEFTRIAXONE/SODIUM CHLORIDE 2 GM/100 ML PIGGYBACK IV ONE (11:15)
--- NOTE | 2023-08-18 12:00 | EKG ---
[facility] [address] [facility] [place], [place] [address] Signed Sinus rhythm with occasional premature ventricular complexes and premature atrial complexes Left bundle branch block Abnormal ECG No previous ECGs available Confirmed by Earnest Aleman MD ([id number]) on 08/18/2023 12:00:34 PM Electronically Signed By: EARNEST ALEMAN 08/18/23 1200 PATIENT NAME: MILOLINHAILEEN SOTO Electrocardiogram DATE OF : 65 PHYSICIAN: EARNEST ALEMAN REPORT #: [id number] REPORT IS CONFIDENTIAL AND NOT TO BE RELEASED WITHOUT AUTHORIZATION
[2023-08-18] MEDS ORDERED: CEFDINIR300 MG PO (13:31)
[2023-08-18 13:40] VITALS: BP 181/101
== END 2023-08-18 13:40 | disposition home or self-care (01) ==
LOC: ED 07:46
PROVIDERS: Emergency Medicine
DX: N39.0 Urinary tract infection, site not specified (principal); R11.2 Nausea with vomiting, unspecified; E11.40 Type 2 diabetes mellitus with diabetic neuropathy, unspecified; J44.9 Chronic obstructive pulmonary disease, unspecified; I13.0 Hypertensive heart and chronic kidney disease with heart failure and stage 1 through stage 4 chronic kidney disease, or unspecified chronic kidney disease; I50.9 Heart failure, unspecified; N18.30 Chronic kidney disease, stage 3 unspecified; E11.43 Type 2 diabetes mellitus with diabetic autonomic (poly)neuropathy; K31.84 Gastroparesis; Z87.891 Personal history of nicotine dependence; Z88.5 Allergy status to narcotic agent; Z88.8 Allergy status to other drugs, medicaments and biological substances; Z88.0 Allergy status to penicillin; Z88.1 Allergy status to other antibiotic agents; Z79.899 Other long term (current) drug therapy; Z79.4 Long term (current) use of insulin
CPT/HCPCS: 36415; 71045; 80053; 81001; 83880; 84484; 85025; 93005; 93010; 96365; 96375; 96376; 99285-25; J0696; J1790; J2405; J7040

== ENCOUNTER 2023-10-31 13:31 | Emergency (ER) | payer OTHER ==
[~2023-10-31] VITALS: Ht 142.2 cm; Wt 115.0 kg
[~2023-10-31 13:31] MED LIST changes: +DAPTOMYCIN700 MG/100 IV; +DULCOLAX10 MG PR
[2023-10-31] MEDS ORDERED: ondansetron HCL 4 MG/2 ML VIAL IV ONE (14:00)
[2023-10-31] MEDS ORDERED: SODIUM CHLORIDE 0.9% 500 ML IV ONE (14:00)
[2023-10-31 14:28] LABS: BASOPHILS 0.6 % (0-2); EOSINOPHILS 1.3 % (0-6); HEMATOCRIT 41.1 % (35.0-50.0); HEMOGLOBIN 13.4 g/dL (12.0-18.0); LYMPHOCYTES 17.5 % (24-44); MCH 28.6 (27-36); MCHC 32.7 g/dl (30-36); MCV 87.5 fl (81-99); NEUTROPHILS 75.6 % (39-80); PLATELET COUNT 262 K/uL (140-440); RBC 4.69 M/ul (4.3-5.7)
[2023-10-31 14:46] LABS: ALBUMIN 3.2 g/dL (3.4-5.0); ALBUMIN/GLOBULIN RATIO 0.73 (1.1-2.4); ANION GAP 11.3 (7-21); BILIRUBIN, TOTAL 0.3 ng/dL (0.2-1.0); BUN/CREATININE RATIO 24.39 (6.0-28.6); CALCIUM 9.2 mg/dL (8.5-10.1); CREATININE, SERUM 1.23 mg/dL (0.55-1.02); MAGNESIUM 2.5 mg/dL (1.8-2.4); POTASSIUM 4.3 mmol/L (3.5-5.1); PROTEIN, TOTAL 7.6 g/dL (6.4-8.2)
[2023-10-31 15:45] LABS: BILIRUBIN, URINE NEGATIVE (negative); BLOOD/HGB, URINE TRACE-I (Negative); KETONE, URINE NEGATIVE (Negative); LEUK ESTERASE, URINE NEGATIVE (negative); NITRITE, URINE NEGATIVE (negative)
[2023-10-31 15:55] LABS: BACTERIA, URINE RARE /hpf (negative); CASTS, URINE NONE SEEN \\lpf; COLLECTION TYPE, URINE CLEAN CATCH; CRYSTALS, URINE NONE SEEN (0-1+); EPITHELIAL CELLS, URINE NONE SEEN /lpf (0-1+); RED BLOOD CELLS, URINE 0-1 /hpf (0-5); REFLEX CULTURE, URINE No (No)
[2023-10-31] MEDS ORDERED: METOPROLOL TARTRATE 5 MG/5 ML VIAL IV ONE (18:30)
[2023-10-31 18:56] VITALS: BP 188/105
== END 2023-10-31 19:42 | disposition home or self-care (01) ==
LOC: ED 13:31
PROVIDERS: Emergency Medicine
DX: E11.43 Type 2 diabetes mellitus with diabetic autonomic (poly)neuropathy (principal); K31.84 Gastroparesis; J44.9 Chronic obstructive pulmonary disease, unspecified; I13.0 Hypertensive heart and chronic kidney disease with heart failure and stage 1 through stage 4 chronic kidney disease, or unspecified chronic kidney disease; E11.22 Type 2 diabetes mellitus with diabetic chronic kidney disease; I50.9 Heart failure, unspecified; N18.30 Chronic kidney disease, stage 3 unspecified; Z88.0 Allergy status to penicillin; Z88.5 Allergy status to narcotic agent; Z88.1 Allergy status to other antibiotic agents; Z88.8 Allergy status to other drugs, medicaments and biological substances; Z79.4 Long term (current) use of insulin; Z79.899 Other long term (current) drug therapy; Z87.891 Personal history of nicotine dependence
CPT/HCPCS: 36415; 80053; 81001; 83605; 83735; 85025; 96361; 96374; 96375; 99284-25; J2405; J7040

== ENCOUNTER 2023-12-19 18:53 | Inpatient (IN) | payer OTHER ==
[~2023-12-19] VITALS: Ht 142.2 cm; Wt 128.5 kg
[~2023-12-19 18:53] MED LIST changes: +HUMALOG100 UNITS/ SUB-Q; -INSULIN GL100 UNIT/2 SQ; +INSULIN GL100 UNIT/2 SUB-Q; -POTASSIUM CHLO10 ME2 PO
[2023-12-19] MEDS ORDERED: ALBUTEROL/IPRATROPIUM 3 ML NEB INH PRN (19:00)
[2023-12-19 19:13] LABS: BASOPHILS 0.3 % (0-2); EOSINOPHILS 0.6 % (0-6); HEMATOCRIT 39.5 % (35.0-50.0); HEMOGLOBIN 12.9 g/dL (12.0-18.0); LYMPHOCYTES 12.4 % (24-44); MCH 29.5 (27-36); MCHC 32.7 g/dl (30-36); NEUTROPHILS 83.7 % (39-80); PLATELET COUNT 221 K/uL (140-440); RBC 4.38 M/ul (4.3-5.7); RDW 15.9 (10.5-15.0)
[2023-12-19] MEDS ORDERED: levoFLOXacin 500 MG/100 ML BAG IV ONE (19:15)
[2023-12-19 19:25] LABS: PH, VENOUS 7.256 (7.31-7.41)
[2023-12-19 19:40] LABS: ALBUMIN 3.3 g/dL (3.4-5.0); ALBUMIN/GLOBULIN RATIO 0.79 (1.1-2.4); ANION GAP 10.8 (7-21); BILIRUBIN, TOTAL 0.7 ng/dL (0.2-1.0); BUN/CREATININE RATIO 23.29 (6.0-28.6); CALCIUM 8.9 mg/dL (8.5-10.1); CREATININE, SERUM 1.76 mg/dL (0.55-1.02); POTASSIUM 4.8 mmol/L (3.5-5.1); PROTEIN, TOTAL 7.5 g/dL (6.4-8.2)
[2023-12-19] MEDS ORDERED: DAPAGLIFLOZIN10 MG PO (19:53)
[2023-12-19] MEDS ORDERED: HYDRALAZINE HCL25 MG PO (19:53)
[2023-12-19] MEDS ORDERED: TRULICITY0.75 MG/0. SUB-Q (19:53)
[2023-12-19] MEDS ORDERED: REGLAN5 MG PO (19:53)
[2023-12-19 19:55] LABS: BILIRUBIN, URINE NEGATIVE (negative); BLOOD/HGB, URINE SMALL (Negative); KETONE, URINE NEGATIVE (Negative); LEUK ESTERASE, URINE MODERATE (negative); NITRITE, URINE POSITIVE (negative)
[2023-12-19 20:03] LABS: BACTERIA, URINE 1+ /hpf (negative); CASTS, URINE NONE SEEN \\lpf; COLLECTION TYPE, URINE CLEAN CATCH; CRYSTALS, URINE NONE SEEN (0-1+); EPITHELIAL CELLS, URINE NONE SEEN /lpf (0-1+); REFLEX CULTURE, URINE Yes (No)
[2023-12-19 20:04] LABS: WHITE BLOOD CELLS, URINE 41-50 /HPF (0-5)
[2023-12-19] MEDS ORDERED: FUROSEMIDE 40 MG/4 ML VIAL IV ONE (21:00)
[2023-12-19] MEDS ORDERED: ALBUTEROL SULFATE 0.083% 3 ML VIAL INH PRN (22:00)
[2023-12-19] MEDS ORDERED: FUROSEMIDE 40 MG/4 ML VIAL IV SCH (22:00)
[2023-12-19] MEDS ORDERED: ondansetron HCL 4 MG/2 ML VIAL IV PRN (22:00)
[2023-12-19] MEDS ORDERED: ACETAMINOPHEN 325 MG TAB PO PRN (22:00)
[2023-12-19] MEDS ORDERED: ALBUTEROL/IPRATROPIUM 3 ML NEB INH SCH (22:00)
[2023-12-19 22:30] VITALS: BP 128/66
[2023-12-19 22:45] VITALS: BP 128/72
[2023-12-19 23:00] VITALS: BP 135/68
[2023-12-19 23:15] VITALS: BP 126/75
[2023-12-20] VITALS (14 sets, daily range): BP systolic 113–140; BP diastolic 47–71
[2023-12-20] MEDS ORDERED: DAPTOmycin 500 MG/10 ML VIAL IV ONE (06:00)
[2023-12-20 06:39] LABS: BASOPHILS 0.8 % (0-2); EOSINOPHILS 0.4 % (0-6); HEMATOCRIT 32.1 % (35.0-50.0); HEMOGLOBIN 10.6 g/dL (12.0-18.0); LYMPHOCYTES 24.6 % (24-44); MCH 29.3 (27-36); MCV 88.8 fl (81-99); MONOCYTES 14.6 % (0-12); NEUTROPHILS 59.6 % (39-80); PLATELET COUNT 153 K/uL (140-440); RBC 3.62 M/ul (4.3-5.7); RDW 15.9 (10.5-15.0)
[2023-12-20 07:01] LABS: ALBUMIN 2.7 g/dL (3.4-5.0); ALBUMIN/GLOBULIN RATIO 0.75 (1.1-2.4); ANION GAP 11.2 (7-21); BILIRUBIN, TOTAL 0.8 ng/dL (0.2-1.0); BUN/CREATININE RATIO 26.9 (6.0-28.6); CALCIUM 8.4 mg/dL (8.5-10.1); CREATININE, SERUM 1.71 mg/dL (0.55-1.02); MAGNESIUM 1.9 mg/dL (1.8-2.4); POTASSIUM 4.2 mmol/L (3.5-5.1); PROTEIN, TOTAL 6.3 g/dL (6.4-8.2)
[2023-12-20] MEDS ORDERED: DEXTROSE 5% 1,000 ML IV PRN (08:00)
[2023-12-20] MEDS ORDERED: GLUCAGON,HUMAN RECOMBINANT 1 MG/ML VIAL SUB-Q PRN (08:00)
[2023-12-20] MEDS ORDERED: DEXTROSE 50% 50 ML SYR IV PRN ×2 (08:00)
[2023-12-20] MEDS ORDERED: IBLOOD GLUCOSE TEST STRIP 1 EA TEST XX SCH (08:00)
[2023-12-20] MEDS ORDERED: IBLOOD GLUCOSE TEST STRIP 1 EA TEST XX PRN (08:00)
[2023-12-20] MEDS ORDERED: INSULIN LISPRO 100 UNIT/ML ML SUB-Q SCH (08:00)
[2023-12-20] MEDS ORDERED: levoFLOXacin 500 MG/100 ML BAG IV SCH (09:00)
[2023-12-20] MEDS ORDERED: CEFTRIAXONE/SODIUM CHLORIDE 1 GM/100 ML PIGGYBACK IV SCH (09:00)
[2023-12-20] MEDS ORDERED: TYLENOL EXTRA500 MG PO (11:39)
[2023-12-20] MEDS ORDERED: PROBIOTIC1 EAC1 PO (11:40)
[2023-12-20] MEDS ORDERED: CHILDREN S AL PO (11:42)
[2023-12-20] MEDS ORDERED: DILAUDID2 MG PO (11:43)
[2023-12-20] MEDS ORDERED: FLEET ENEMA133 ML PR (11:51)
[2023-12-20] MEDS ORDERED: GLUCAGON EMERGEN1 M1 IM (11:54)
[2023-12-20] MEDS ORDERED: PHARMACY RENAL DOSE ADJUSTMENT 1 DOSE MISC PO SCH (12:00)
[2023-12-20] MEDS ORDERED: MILK OF MA400 MG/5 M PO (12:01)
[2023-12-20] MEDS ORDERED: ONDANSETRON HCL8 MG PO (12:02)
[2023-12-20] MEDS ORDERED: MIRALAX17 GM PO (12:05)
[2023-12-20] MEDS ORDERED: PROMETHEGAN25 MG PR (13:10)
[2023-12-20] MEDS ORDERED: METOCLOPRAMIDE HCL 5 MG TAB PO SCH (16:00)
[2023-12-20] MEDS ORDERED: BUDESONIDE 0.5 MG/2 ML VIAL INH SCH (20:00)
[2023-12-20] MEDS ORDERED: ALBUTEROL/IPRATROPIUM 3 ML NEB INH SCH (20:00)
[2023-12-20] MEDS ORDERED: GABAPENTIN 300 MG CAP PO SCH (21:00)
[2023-12-20] MEDS ORDERED: INSULIN GLARGINE-YFGN 100 UNIT/ML ML SUB-Q SCH (21:00)
[2023-12-21 01:27] VITALS: BP 137/74
[2023-12-21 01:31] VITALS: BP 137/74
[2023-12-21 06:09] LABS: BASOPHILS 0.6 % (0-2); EOSINOPHILS 0.6 % (0-6); HEMATOCRIT 31.3 % (35.0-50.0); HEMOGLOBIN 10.5 g/dL (12.0-18.0); LYMPHOCYTES 16.5 % (24-44); MCH 29.7 (27-36); MCHC 33.4 g/dl (30-36); MCV 88.9 fl (81-99); MONOCYTES 12.4 % (0-12); NEUTROPHILS 69.9 % (39-80); PLATELET COUNT 160 K/uL (140-440); RBC 3.52 M/ul (4.3-5.7); RDW 16.4 (10.5-15.0)
[2023-12-21 06:10] VITALS: BP 141/96
[2023-12-21 06:19] LABS: BUN/CREATININE RATIO 25.87 (6.0-28.6); CALCIUM 8.7 mg/dL (8.5-10.1); CREATININE, SERUM 1.43 mg/dL (0.55-1.02)
[2023-12-21] MEDS ORDERED: EMPAGLIFLOZIN 10 MG TAB PO SCH (09:00)
[2023-12-21] MEDS ORDERED: TORSEMIDE 20 MG TAB PO SCH (09:00)
[2023-12-21] MEDS ORDERED: ARIPiprazole 5 MG TAB PO SCH (09:00)
[2023-12-21] MEDS ORDERED: DAPTOmycin 500 MG/10 ML VIAL IV SCH (09:00)
[2023-12-21] MEDS ORDERED: FLUOXETINE HCL 20 MG CAP PO SCH (09:00)
[2023-12-21 09:19] VITALS: BP 139/62
--- NOTE | 2023-12-21 09:29 | CONS ---
[facility] [address], [place] [address] Signed DATE OF CONSULTATION: 12/20/2023 REQUESTING PHYSICIAN: Dr. Law. ISSUE: Right below-knee amputation stump wound with wound VAC. HISTORY OF PRESENT ILLNESS: This 58-year-old white woman has a complex past history. 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 She had issues of difficulty of healing the stump in part because she has a left above-knee amputation and she persistently used the right remaining below-knee amputation stump for assistance in her transfers. This necessitated a fair amount of intervention including debridement and application of wound VAC. She was found on plain x-rays a number of months ago to have findings suggestive of osteomyelitis of the right tibia. On that basis, she underwent placement of a right upper arm midline catheter for which she has been undergoing intravenous antibiotic use linezolid for a number of months as well as application of wound VAC to the stump. The large defect at her stump has healed impressively well over time, though she still has a small area of skin that is open but is granulating well. . She was admitted to the hospital today by Dr. Law with hypercapnic respiratory failure and exacerbation of CHF. She had chills and tremulousness and bilateral groin pain, which she described as crampy, moderate in intensity and nonradiating. Notably, her white count today is 4.6, and she shows no evidence of systemic sepsis particularly. Her urinalysis is quite abnormal, however, with white count of 41-50 per high-power field. Leukocyte esterase moderate. Cultures were obtained. Her medications has recently included daptomycin rather than linezolid, which has been continued in the hospital thus far. Consultation is requested on the basis of her right below-knee amputation wound site, which measures about 2.5 x 5 cm and shows granulation. Questions regarding ongoing use of daptomycin and the wound VAC have been posed to me at this point. It is notable that over a month ago, she suffered a fall from her wheelchair, fracturing her right knee. Review of her CT scan from October 07, 2023, confirmed an acute comminuted, mildly displaced proximal tibia metaphyseal fracture with components involving both plateaus and 6 mm articular surface with step-off in the lateral plateau. The below-knee amputation changes had prominent periosteal reaction, but no bony Electronically Signed By: NUPUR EWING MD 12/21/23 0929 PATIENT NAME: LINH PEDRAZA CONSULTATION DATE OF : 65 REPORT #: [id number] PHYSICIAN: NUPUR EWING MD PCP: ABIMBOLA TAVERAS MD REPORT IS CONFIDENTIAL AND NOT TO BE RELEASED WITHOUT AUTHORIZATION [address] [address] Signed erosions with no drainable fluid collection or soft tissue gas. There was tissue edema throughout the leg and prominent skin thickening overlying the tibial stump as was clinically obvious as well. This was managed by Dr. Park and his team including his physician child nutrition assistant Tess ADAMS. No specific splinting was required at that time. My review of her chart confirms my last intervention on May 13, 2023, including debridement of the below-knee amputation stump with curettage and cultures and application of wound VAC device at that time. Indication for operation included persistent seromatous fluid beneath the right below-knee amputation wound flap and inappropriate for definitive closure with skin grafting. At present, the patient is feeling quite well overall. She does not have shortness of breath at this time and her groin pain has resolved. It is noted that cultures from May 12 regarding her wound did confirm MRSA organism proper. REVIEW OF SYSTEMS: She denies any shortness of breath or chest pain at this time. She is feeling well overall. She does not have dysuria and her pelvic pain has resolved. PHYSICAL EXAMINATION: GENERAL: This is an obese white woman, weighing 128.5 kg and for 4 feet 8 inches in height, considered a BMI of 63.5. VITAL SIGNS: Temperature at 5:00 p.m. was 99.2, previously 97.8, pulse is 82, blood pressure 140/66. HEENT: Trachea is midline. CHEST: Shows no tachypnea. ABDOMEN: Quite obese, but soft. EXTREMITIES: Examination of her left leg shows the above knee amputation stump that has well healed without sign of abnormality. The right lower extremity including the tip of the below-knee amputation stump shows a granulating wound approximately 5 cm x 2 cm in size. There was no sign of undrained purulence. There are erythematous and edematous changes of the stump in part related to her persistent use of the remaining stump for transfers. The more proximal thigh appears to be normal. ASSESSMENT AND PLAN: Presumed osteomyelitis, right tibia, a number of months ago radiographically appears to be resolved based on plain x-rays. I ordered an extremity x-ray today, which confirms no evidence of osteolytic lesion and although osteomyelitis cannot be definitively excluded, it does not show acute osteomyelitis at this time. On the basis of those findings, I believe the wound VAC can be discontinued and simple dressing changes undertaken until that point, at which definitive skin graft could be applied. To that end, removal of her midline catheter in the medial right arm is reasonable and is very much sought by the patient as it "bothers her." As regards to persistent use of Electronically Signed By: NUPUR EWING MD 12/21/23 0929 PATIENT NAME: LINH PEDRAZA CONSULTATION DATE OF : 65 REPORT #: [id number] PHYSICIAN: NUPUR EWING MD PCP: ABIMBOLA TAVERAS MD REPORT IS CONFIDENTIAL AND NOT TO BE RELEASED WITHOUT AUTHORIZATION [facility] [address] [facility] [place], [place] [address] Signed daptomycin, it is likely unnecessary at this point. A medication for urinary tract infection should be given, however, and that would be appropriate at this time. The patient does have a long list of antibiotic sensitivities or allergies including penicillin. She has been on Levaquin, which was discontinued, though may be an appropriate antibiotic generally speaking pending cultures from her urine. In addition, I think she would benefit from a right below knee soft cushioned internal cup prosthesis ( without actual foot prosthesis) and firm stump external componant to still allow the right bk stump to assist in transfer to protect the stump going forward. I will investigate that further. MD DB Urias/SUKHDEEP /[id number] cc: MD Homer Zaidi MD Copies: ~ Electronically Signed By: NUPUR EWING MD 12/21/23 0929 PATIENT NAME: LINH PEDRAZA CONSULTATION DATE OF : 65 REPORT #: [id number] PHYSICIAN: NUPUR EWING MD PCP: ABIMBOLA TAVERAS MD REPORT IS CONFIDENTIAL AND NOT TO BE RELEASED WITHOUT AUTHORIZATION
[2023-12-21] MEDS ORDERED: ENOXAPARIN SODIUM 40 MG/0.4 ML SYR SUB-Q SCH (09:30)
[2023-12-21] MEDS ORDERED: NITROFURANTOIN100 M1 PO (10:29)
[2023-12-21 13:48] VITALS: BP 149/64
--- NOTE | 2023-12-21 15:49 | EKG ---
[facility] [address] [facility] [place] [address] Signed Wide QRS tachycardia Left axis deviation Left bundle branch block Abnormal ECG When compared with ECG of 18-AUG-2023 08:04, Wide QRS tachycardia has replaced Sinus rhythm Vent. rate has increased BY 43 BPM Confirmed by Yony Law MD ([id number]) on 12/21/2023 3:48:58 PM Electronically Signed By: YONY LAW MD 12/21/23 1549 PATIENT NAME: LINH PEDRAZA Electrocardiogram DATE OF : 65 PHYSICIAN: YONY LAW MD REPORT #: [id number] REPORT IS CONFIDENTIAL AND NOT TO BE RELEASED WITHOUT AUTHORIZATION
== END 2023-12-21 14:20 | disposition home or self-care (01) | DRG 291 ==
LOC: ED 18:53 → CCU 21:37 → MS 12-20 11:20
PROVIDERS: Emergency Medicine; Family Medicine; ADMIT Student in an Organized Health Care Education/Training Program; ATTEND Student in an Organized Health Care Education/Training Program
DX: I13.0 Hypertensive heart and chronic kidney disease with heart failure and stage 1 through stage 4 chronic kidney disease, or unspecified chronic kidney disease (principal); J96.01 Acute respiratory failure with hypoxia; J96.02 Acute respiratory failure with hypercapnia; N39.0 Urinary tract infection, site not specified; Z68.44 Body mass index [BMI] 60.0-69.9, adult; I50.9 Heart failure, unspecified; N18.30 Chronic kidney disease, stage 3 unspecified; E11.40 Type 2 diabetes mellitus with diabetic neuropathy, unspecified; J44.9 Chronic obstructive pulmonary disease, unspecified; E78.5 Hyperlipidemia, unspecified; E66.9 Obesity, unspecified; Z87.19 Personal history of other diseases of the digestive system; Z87.891 Personal history of nicotine dependence; F12.90 Cannabis use, unspecified, uncomplicated; Z90.710 Acquired absence of both cervix and uterus; Z98.890 Other specified postprocedural states; Z90.49 Acquired absence of other specified parts of digestive tract; Z89.612 Acquired absence of left leg above knee; Z89.411 Acquired absence of right great toe; Z88.1 Allergy status to other antibiotic agents; Z88.5 Allergy status to narcotic agent; Z88.0 Allergy status to penicillin; Z88.8 Allergy status to other drugs, medicaments and biological substances; Z79.899 Other long term (current) drug therapy; Z79.4 Long term (current) use of insulin; Z89.511 Acquired absence of right leg below knee; Z87.81 Personal history of (healed) traumatic fracture; Z86.19 Personal history of other infectious and parasitic diseases
CPT/HCPCS: 36415; 36592; 71045; 73560; 80048; 80053; 81001; 82803; 83605; 83735; 83880; 84484; 85025; 85060; 87040; 87077; 87088; 87186; 87502; 93005; 93010; 94640; 94660; 94760; 94762; 97161; 97165; 97530; 97535; A9270; J0696; J0878; J1650; J1815; J1940; J1956; U0002

== ENCOUNTER 2024-04-24 12:55 | Inpatient (IN) | payer OTHER ==
[~2024-04-24] VITALS: Ht 142.2 cm; Wt 130.4 kg
[~2024-04-24 12:55] MED LIST changes: +ASMANEX220 MCG INH; +CHILDREN S AL PO; +CRESTOR40 MG NG; +DAPAGLIFLOZIN10 MG PO; +FLEET ENEMA133 ML PR; +GLUCAGON EMERGEN1 M1 IM; +HYDRALAZINE HCL25 MG PO; +LOPERAMIDE2 M1 PO; +MILK OF MA400 MG/5 M PO; +MIRALAX17 GM PO; +NARCAN4 MG NAS; +NITROFURANTOIN100 M1 PO; +ONDANSETRON HCL8 MG PO; +PROBIOTIC1 EAC1 PO; +PROMETHEGAN25 MG PR; +REGLAN5 MG PO; +SOAANZ40 MG PO; +TRULICITY0.75 MG/0. SUB-Q; +TYLENOL EXTRA500 MG PO; +VOLTAREN ARTHRI20 GM TOP
[2024-04-24 13:13] LABS: BASOPHILS 0.5 % (0-2); EOSINOPHILS 3.5 % (0-6); HEMATOCRIT 35.2 % (35.0-50.0); HEMOGLOBIN 11.6 g/dL (12.0-18.0); LYMPHOCYTES 20.9 % (24-44); MCH 30.1 (27-36); MCHC 32.9 g/dl (30-36); MCV 91.7 fl (81-99); MONOCYTES 9.5 % (0-12); NEUTROPHILS 65.6 % (39-80); PLATELET COUNT 202 K/uL (140-440); RBC 3.84 M/ul (4.3-5.7); RDW 15.9 (10.5-15.0)
[2024-04-24] MEDS ORDERED: ALBUTEROL/IPRATROPIUM 3 ML NEB INH PRN (13:15)
[2024-04-24 13:28] LABS: ALBUMIN 2.8 g/dL (3.4-5.0); ALBUMIN/GLOBULIN RATIO 0.74 (1.1-2.4); ANION GAP 4.3 (7-21); BILIRUBIN, TOTAL 0.5 ng/dL (0.2-1.0); BUN/CREATININE RATIO 22.87 (6.0-28.6); CALCIUM 8.3 mg/dL (8.5-10.1); CREATININE, SERUM 1.53 mg/dL (0.55-1.02); MAGNESIUM 2.1 mg/dL (1.8-2.4); POTASSIUM 4.3 mmol/L (3.5-5.1); PROTEIN, TOTAL 6.6 g/dL (6.4-8.2)
[2024-04-24] MEDS ORDERED: SOAANZ40 MG (13:29)
[2024-04-24] MEDS ORDERED: TRULICITY0.75 MG/0. (13:30)
[2024-04-24] MEDS ORDERED: FUROSEMIDE 40 MG/4 ML VIAL IV ONE ×2 (14:00→15:45)
[2024-04-24] MEDS ORDERED: predniSONE 20 MG TAB PO SCH (15:55)
[2024-04-24] MEDS ORDERED: ALBUTEROL/IPRATROPIUM 3 ML NEB INH SCH (16:00)
[2024-04-24] MEDS ORDERED: DEXTROSE 5% 1,000 ML IV PRN (16:00)
[2024-04-24] MEDS ORDERED: ACETAMINOPHEN 325 MG TAB PO PRN (16:00)
[2024-04-24] MEDS ORDERED: IBLOOD GLUCOSE TEST STRIP 1 EA TEST XX PRN (16:00)
[2024-04-24] MEDS ORDERED: POLYETHYLENE GLYCOL 3350 1 PACKET PO PRN (16:00)
[2024-04-24] MEDS ORDERED: DEXTROSE 50% 50 ML SYR IV PRN ×2 (16:00)
[2024-04-24] MEDS ORDERED: NICOTINE POLACRILEX 4 MG LOZENGE BUCCAL PRN (16:00)
[2024-04-24] MEDS ORDERED: ondansetron HCL 4 MG/2 ML VIAL IV PRN (16:00)
[2024-04-24] MEDS ORDERED: GLUCAGON,HUMAN RECOMBINANT 1 MG/ML VIAL SUB-Q PRN (16:00)
[2024-04-24] MEDS ORDERED: NICOTINE 14 MG/24 HR 1 EA TDSY TD SCH (16:01)
[2024-04-24] MEDS ORDERED: IBLOOD GLUCOSE TEST STRIP 1 EA TEST VI SCH (17:00)
[2024-04-24] MEDS ORDERED: INSULIN LISPRO 100 UNIT/ML ML SUB-Q SCH (17:00)
[2024-04-24 17:17] VITALS: BP 159/82
[2024-04-24] MEDS ORDERED: ALBUTEROL2.5 MG/3 M INH (17:26)
[2024-04-24] MEDS ORDERED: TIOTROPIUM BRO18 MCG INH (17:26)
[2024-04-24] MEDS ORDERED: TORSEMIDE20 MG PO (18:23)
[2024-04-24] MEDS ORDERED: SENNA8.6 MG PO (18:26)
[2024-04-24 18:58] LABS: INFLUENZA B NAA NEGATIVE (NEGATIVE); RESPIRATORY SYNCYTIAL VIR NAA NEGATIVE (NEGATIVE)
[2024-04-24 20:32] VITALS: BP 126/50
[2024-04-24 20:34] VITALS: BP 126/50
[2024-04-24] MEDS ORDERED: INSULIN GLARGINE-YFGN 100 UNIT/ML ML SUB-Q SCH (21:00)
[2024-04-24] MEDS ORDERED: GABAPENTIN 300 MG CAP PO SCH (21:00)
[2024-04-24] MEDS ORDERED: ATORVASTATIN 40 MG TAB PO SCH (21:00)
[2024-04-24] MEDS ORDERED: HEParin SOD (PORCINE) 5,000 UNIT/ML SDV SUB-Q SCH (21:00)
[2024-04-24] MEDS ORDERED: DOXYCYCLINE HYCLATE 100 MG CAP PO SCH (21:00)
[2024-04-24] MEDS ORDERED: carvediloL 6.25 MG TAB PO SCH (21:00)
[2024-04-24] MEDS ORDERED: MELATONIN 3 MG TAB PO PRN (21:00)
[2024-04-25] VITALS (11 sets, daily range): BP systolic 118–150; BP diastolic 55–71
[2024-04-25] MEDS ORDERED: guaiFENesin 600 MG TABCR PO PRN (01:00)
[2024-04-25] MEDS ORDERED: BENZONATATE 100 MG CAP PO PRN (01:00)
[2024-04-25] MEDS ORDERED: ALBUTEROL SULFATE 0.5% 2.5 MG/0.5 ML VIAL INH PRN (01:45)
[2024-04-25 05:47] LABS: BASOPHILS 0.7 % (0-2); HEMATOCRIT 36.3 % (35.0-50.0); HEMOGLOBIN 11.9 g/dL (12.0-18.0); LYMPHOCYTES 10.5 % (24-44); MCH 29.9 (27-36); MCHC 32.7 g/dl (30-36); MCV 91.6 fl (81-99); MONOCYTES 3.3 % (0-12); NEUTROPHILS 85.5 % (39-80); PLATELET COUNT 204 K/uL (140-440); RBC 3.97 M/ul (4.3-5.7); RDW 16.1 (10.5-15.0)
[2024-04-25 06:01] LABS: ANION GAP 5.3 (7-21); BUN/CREATININE RATIO 21.51 (6.0-28.6); CALCIUM 8.7 mg/dL (8.5-10.1); CREATININE, SERUM 1.58 mg/dL (0.55-1.02); MAGNESIUM 2.2 mg/dL (1.8-2.4); POTASSIUM 4.3 mmol/L (3.5-5.1)
[2024-04-25] MEDS ORDERED: BUDESONIDE 0.5 MG/2 ML VIAL INH SCH (08:00)
[2024-04-25] MEDS ORDERED: hydrALAZINE HCL 25 MG TAB PO SCH (09:00)
[2024-04-25] MEDS ORDERED: CEFTRIAXONE/SODIUM CHLORIDE 2 GM/100 ML PIGGYBACK IV SCH (09:00)
[2024-04-25] MEDS ORDERED: AZITHROMYCIN 250 MG TAB PO SCH (09:00)
[2024-04-25] MEDS ORDERED: FUROSEMIDE 40 MG/4 ML VIAL IV SCH (09:00)
[2024-04-25] MEDS ORDERED: PHARMACY RENAL DOSE ADJUSTMENT 1 DOSE MISC PO SCH (12:00)
[2024-04-25] MEDS ORDERED: ACETAMINOPHEN 325 MG TAB PO PRN (16:45)
[2024-04-25] MEDS ORDERED: ZINC OXIDE/PETROLATUM, YELLOW 71 GM TUBE TOP PRN ×2 (16:45→17:00)
[2024-04-25] MEDS ORDERED: MICONAZOLE NITRATE 1 EA BTL TOP SCH (21:00)
[2024-04-26 05:13] VITALS: BP 139/72
[2024-04-26] MEDS ORDERED: ALBUTEROL SULFATE 0.083% 3 ML VIAL ONE (05:17)
[2024-04-26] MEDS ORDERED: ALBUTEROL SULFATE 0.083% 3 ML VIAL INH PRN (05:30)
[2024-04-26 05:37] LABS: BASOPHILS 0.9 % (0-2); EOSINOPHILS 1.3 % (0-6); HEMATOCRIT 35.5 % (35.0-50.0); HEMOGLOBIN 11.8 g/dL (12.0-18.0); LYMPHOCYTES 23.9 % (24-44); MCH 30.2 (27-36); MCHC 33.2 g/dl (30-36); MCV 91.1 fl (81-99); MONOCYTES 10.8 % (0-12); NEUTROPHILS 63.1 % (39-80); PLATELET COUNT 249 K/uL (140-440); RDW 15.5 (10.5-15.0)
[2024-04-26 05:42] LABS: ANION GAP 9.1 (7-21); BUN/CREATININE RATIO 29.28 (6.0-28.6); CALCIUM 8.9 mg/dL (8.5-10.1); CREATININE, SERUM 1.4 mg/dL (0.55-1.02); MAGNESIUM 2.3 mg/dL (1.8-2.4); POTASSIUM 4.1 mmol/L (3.5-5.1)
[2024-04-26 06:01] LABS: SMEAR REVIEW BLOOD SEE COMMENTS
[2024-04-26] MEDS ORDERED: SODIUM HYPOCHLORITE 0.25% TOP SCH (09:00)
[2024-04-26 09:28] VITALS: BP 146/76
[2024-04-26] MEDS ORDERED: PREDNISONE20 MG PO (10:19)
[2024-04-26] MEDS ORDERED: CEFUROXIME500 MG PO (10:20)
[2024-04-26] MEDS ORDERED: AZITHROMYCIN500 MG PO (10:20)
[2024-04-26 13:20] VITALS: BP 141/76
[2024-04-26 14:03] VITALS: BP 141/76
--- NOTE | 2024-04-27 17:04 | EKG ---
[facility] [address] [facility] [place] [address] Signed Normal sinus rhythm Left axis deviation Left bundle branch block Abnormal ECG When compared with ECG of 14-FEB-2024 22:49, No significant change was found Confirmed by Babatunde Oro DO ([id number]) on 04/27/2024 5:04:32 PM Electronically Signed By: BABATUNDE ORO DO 04/27/24 1704 PATIENT NAME: LINH PEDRAZA Electrocardiogram DATE OF : 65 PHYSICIAN: BABATUNDE ORO DO REPORT #: [id number] REPORT IS CONFIDENTIAL AND NOT TO BE RELEASED WITHOUT AUTHORIZATION
== END 2024-04-26 14:20 | DRG 291 ==
LOC: ED 12:55 → MS 12:57
PROVIDERS: Emergency Medicine; ADMIT Student in an Organized Health Care Education/Training Program; ATTEND Student in an Organized Health Care Education/Training Program
DX: I13.0 Hypertensive heart and chronic kidney disease with heart failure and stage 1 through stage 4 chronic kidney disease, or unspecified chronic kidney disease (principal); I50.33 Acute on chronic diastolic (congestive) heart failure; J44.1 Chronic obstructive pulmonary disease with (acute) exacerbation; N18.30 Chronic kidney disease, stage 3 unspecified; E11.40 Type 2 diabetes mellitus with diabetic neuropathy, unspecified; E78.5 Hyperlipidemia, unspecified; E11.22 Type 2 diabetes mellitus with diabetic chronic kidney disease; G89.29 Other chronic pain; I25.10 Atherosclerotic heart disease of native coronary artery without angina pectoris; F41.1 Generalized anxiety disorder; Z89.512 Acquired absence of left leg below knee; Z89.511 Acquired absence of right leg below knee; Z99.81 Dependence on supplemental oxygen; F17.210 Nicotine dependence, cigarettes, uncomplicated; Z87.19 Personal history of other diseases of the digestive system; Z90.710 Acquired absence of both cervix and uterus; Z90.49 Acquired absence of other specified parts of digestive tract; Z98.890 Other specified postprocedural states; Z89.411 Acquired absence of right great toe; Z89.612 Acquired absence of left leg above knee; Z88.5 Allergy status to narcotic agent; Z88.0 Allergy status to penicillin; Z88.1 Allergy status to other antibiotic agents; Z88.8 Allergy status to other drugs, medicaments and biological substances
CPT/HCPCS: 36415; 71045; 80048; 80053; 83735; 83880; 84484; 85025; 85060; 87502; 93005; 93010; 93306; 94640; 94762; 94799; 99406; A9270; J0696; J1644; J1815; J1940; J7512; U0002

== ENCOUNTER 2024-06-27 10:27 | Emergency (ER) | payer OTHER ==
[~2024-06-27] VITALS: Ht 142.2 cm; Wt 123.0 kg
[~2024-06-27 10:27] MED LIST changes: +ALBUTEROL2.5 MG/3 M INH; +AZITHROMYCIN500 MG PO; +CEFUROXIME500 MG PO; +SOAANZ40 MG; +TIOTROPIUM BRO18 MCG INH; +TRULICITY0.75 MG/0.
[2024-06-27] MEDS ORDERED: SODIUM CHLORIDE 0.9% 500 ML IV PRN (11:00)
[2024-06-27] MEDS ORDERED: diphenhydrAMINE HCL 50 MG/ML VIAL IV ONE (11:00)
[2024-06-27] MEDS ORDERED: METOCLOPRAMIDE HCL 10 MG/2 ML SDV IV ONE (11:00)
[2024-06-27 11:35] LABS: BASOPHILS 0.5 % (0-2); EOSINOPHILS 0.8 % (0-6); HEMOGLOBIN 14.3 g/dL (12.0-18.0); LYMPHOCYTES 8.6 % (24-44); MCH 29.6 (27-36); MCHC 33.2 g/dl (30-36); MONOCYTES 6.6 % (0-12); NEUTROPHILS 83.5 % (39-80); PLATELET COUNT 230 K/uL (140-440); RBC 4.83 M/ul (4.3-5.7); RDW 15.5 (10.5-15.0)
[2024-06-27 11:52] LABS: ALBUMIN/GLOBULIN RATIO 0.73 (1.1-2.4); ANION GAP 4.9 (7-21); BILIRUBIN, TOTAL 0.5 mg/dL (0.2-1.0); BUN/CREATININE RATIO 19.25 (6.0-28.6); CALCIUM 8.5 mg/dL (8.5-10.1); CREATININE, SERUM 1.61 mg/dL (0.55-1.02); POTASSIUM 3.9 mmol/L (3.5-5.1); PROTEIN, TOTAL 7.1 g/dL (6.4-8.2)
[2024-06-27] MEDS ORDERED: REGLAN10 MG PO (12:16)
[2024-06-27] MEDS ORDERED: ADMELOG100 UNIT/1 SQ (12:41)
[2024-06-27] MEDS ORDERED: LIPITOR40 MG PO (12:45)
[2024-06-27] MEDS ORDERED: BENZONATATE100 MG PO (12:46)
[2024-06-27] MEDS ORDERED: BIOTENE MOIST44.3 ML MM (12:47)
[2024-06-27] MEDS ORDERED: MELATONIN3 M3 PO (12:53)
[2024-06-27] MEDS ORDERED: ONDANSETRON ODT8 MG PO (12:55)
[2024-06-27 12:57] VITALS: BP 156/94
== END 2024-06-27 12:59 | disposition home or self-care (01) ==
LOC: ED 10:27
PROVIDERS: Emergency Medicine
DX: R11.2 Nausea with vomiting, unspecified (principal); E11.43 Type 2 diabetes mellitus with diabetic autonomic (poly)neuropathy; K31.84 Gastroparesis; E11.40 Type 2 diabetes mellitus with diabetic neuropathy, unspecified; J44.9 Chronic obstructive pulmonary disease, unspecified; I13.0 Hypertensive heart and chronic kidney disease with heart failure and stage 1 through stage 4 chronic kidney disease, or unspecified chronic kidney disease; E11.22 Type 2 diabetes mellitus with diabetic chronic kidney disease; N18.30 Chronic kidney disease, stage 3 unspecified; I50.9 Heart failure, unspecified; Z79.4 Long term (current) use of insulin; Z79.899 Other long term (current) drug therapy; Z79.52 Long term (current) use of systemic steroids; Z88.5 Allergy status to narcotic agent; Z88.1 Allergy status to other antibiotic agents; Z88.0 Allergy status to penicillin; Z88.8 Allergy status to other drugs, medicaments and biological substances; Z87.891 Personal history of nicotine dependence
CPT/HCPCS: 36415; 80053; 83690; 85025; 96361; 96374; 96375; 99284-25; J1200; J2765; J7040

== ENCOUNTER 2024-08-24 18:39 | Inpatient (IN) | payer OTHER ==
[~2024-08-24] VITALS: Ht 142.2 cm; Wt 0.0 kg
[~2024-08-24 18:39] MED LIST changes: +ADMELOG100 UNIT/1 SUB-Q; -ALBUTEROL2.5 MG/3 M INH; +ALBUTEROL2.5 MG/3 M NEB; +ARTHRITIS PAIN650 MG PO; +BENZONATATE100 MG PO; +BIOTENE MOIST44.3 ML MM; +FLUOXETINE HCL10 M1 PO; +KLOR-CON M2020 MEQ PO; +LIPITOR40 MG PO; +MELATONIN3 M3 PO; -TYLENOL EXTRA500 MG PO
[2024-12-06] VITALS (8 sets, daily range): BP systolic 134–166; BP diastolic 57–81
[2024-12-06] MEDS ORDERED: LACTATED RINGER'S 1,000 ML IV SCH ×2 (05:00→16:00)
[2024-12-06] MEDS ORDERED: HEParin SOD (PORCINE) 5,000 UNIT/ML SDV SUB-Q SCH (07:00)
[2024-12-06] MEDS ORDERED: LIDOCAINE HCL 1% 5 ML SDV INJ ONE (07:00)
[2024-12-06] MEDS ORDERED: CEFAZOLIN SODIUM 3 GM in SODIUM CHLORIDE 0.9% 100 ML IV SCH (07:00)
[2024-12-06] MEDS ORDERED: IBLOOD GLUCOSE TEST STRIP 1 EA TEST VI PRN ×2 (07:00→10:45)
[2024-12-06] MEDS ORDERED: PROSTAT (07:39)
[2024-12-06] MEDS ORDERED: ASCORBIC ACID500 M3 PO (07:55)
[2024-12-06] MEDS ORDERED: ERGOCALCIFEROL1 GM MISC (08:26)
[2024-12-06] MEDS ORDERED: HYDRALAZINE HCL25 MG PO ×2 (08:28→08:29)
[2024-12-06] MEDS ORDERED: IMODIUM A-D2 M2 PO (08:31)
[2024-12-06] MEDS ORDERED: JUVEN PACKET1 EAC1 PO (08:32)
[2024-12-06] MEDS ORDERED: LACTOBACILLUS1 EACH PO (08:33)
[2024-12-06] MEDS ORDERED: PULMICORT0.5 MG/2 M INH (08:35)
[2024-12-06] MEDS ORDERED: AIRSUPRA 90-810.7 GM IH (08:35)
[2024-12-06] MEDS ORDERED: REGLAN5 MG PO (08:37)
[2024-12-06] MEDS ORDERED: TRULICITY1.5 MG/0.5 (08:37)
[2024-12-06] MEDS ORDERED: ZINC GLUCONATE100 MG PO (08:41)
[2024-12-06] MEDS ORDERED: VITAMIN D325 MCG PO (08:41)
[2024-12-06 09:16] LABS: ALT (SGPT) 12.0 U/L (14-59); AST (SGOT) 9.0 U/L (15-37); GLOMERULAR FILTRATION RATE,EST 32.0 mL/min (>60); PROTEIN, TOTAL 7.0 g/dL (6.4-8.2); UREA NITROGEN 32.0 mg/dL (7-18)
[2024-12-06] MEDS ORDERED: fentaNYL citrate 100 MCG/2 ML VIAL ONE ×3 (09:50→12:23)
[2024-12-06] MEDS ORDERED: SUCCINYLCHOLINE IN 0.9% NACL 200 MG/10 ML SYRINGE ONE (09:50)
[2024-12-06] MEDS ORDERED: SUGAMMADEX SODIUM 200 MG/2 ML ML ONE ×2 (09:50→12:23)
[2024-12-06] MEDS ORDERED: ROCURONIUM BROMIDE 50 MG/5 ML SYR ONE (09:50)
[2024-12-06] MEDS ORDERED: LIDOCAINE HCL 2% 5 ML SDV ONE ×2 (09:50→15:34)
[2024-12-06] MEDS ORDERED: DEXAMETHASONE SOD PHOS 4 MG/ML VIAL ONE (10:39)
[2024-12-06] MEDS ORDERED: NALOXONE HCL 0.4 MG SYR IV PRN (10:45)
[2024-12-06] MEDS ORDERED: fentaNYL citrate 50 MCG/ML SDV IV PRN (10:45)
[2024-12-06] MEDS ORDERED: HYDROmorphone HCL 1 MG/ML SYR IV PRN ×3 (10:45→13:15)
[2024-12-06 11:10] LABS: BLOOD/HGB, URINE NEGATIVE (Negative); KETONE, URINE NEGATIVE (Negative); LEUK ESTERASE, URINE SMALL (negative); NITRITE, URINE NEGATIVE (negative)
[2024-12-06 11:17] LABS: BACTERIA, URINE 1+ /hpf (negative); CASTS, URINE NONE SEEN \\lpf; CRYSTALS, URINE NONE SEEN (0-1+); EPITHELIAL CELLS, URINE SQUAMOUS 1+ /lpf (0-1+); REFLEX CULTURE, URINE Yes (No)
[2024-12-06] MEDS ORDERED: ACETAMINOPHEN 1,000 MG/100 ML VIAL ONE (11:35)
[2024-12-06] MEDS ORDERED: Ropivacaine HCl 0.5% 30 ML VIAL ONE ×2 (13:04→15:34)
[2024-12-06] MEDS ORDERED: ARIPiprazole 5 MG TAB PO SCH ×2 (13:12→15:50)
[2024-12-06] MEDS ORDERED: FLUOXETINE HCL 20 MG CAP PO SCH (13:14)
[2024-12-06] MEDS ORDERED: KETOROLAC TROMETHAMINE 30 MG/ML VIAL IV PRN (13:15)
[2024-12-06] MEDS ORDERED: LACTATED RINGER'S 1,000 ML IV ONE (13:15)
[2024-12-06] MEDS ORDERED: TORSEMIDE 20 MG TAB PO SCH (13:16)
[2024-12-06] MEDS ORDERED: POLYETHYLENE GLYCOL 3350 1 PACKET PO PRN (13:30)
[2024-12-06] MEDS ORDERED: ALBUTEROL SULFATE 0.083% 3 ML VIAL INH SCH (14:00)
[2024-12-06] MEDS ORDERED: MEROPENEM 1,000 MG in DEXTROSE 5% 100 ML IV SCH ×2 (14:00→21:00)
[2024-12-06] MEDS ORDERED: ACETAMINOPHEN 500 MG TAB PO SCH (14:00)
[2024-12-06 14:03] LABS: BASOPHILS 0.5 % (0.1-1.2); EOSINOPHILS 0.2 % (0.7-5.8); LYMPHOCYTES 8.0 % (19.3-51.7); MCH 30.7 PG (25.6-32.2); MCHC 31.5 g/dL (32.2-35.5); MCV 97.5 fL (79.4-94.8); MONOCYTES 1.3 % (4.7-12.5); NEUTROPHILS 87.4 % (34.0-71.1); RBC 4.33 M/uL (3.93-5.22)
[2024-12-06] MEDS ORDERED: KETOROLAC TROMETHAMINE 15 MG/ML VIAL IV ONE (14:15)
--- NOTE | 2024-12-06 14:40 | NUR ---
PT ARRIVED TO [facility] VIA STRETCHER TO ROOM 108. PT IS ALERT, ORIENTED. RECIEVED REPORT FROM HARDIK SILVERMAN. PT IS IN 7/10 PAIN, ICE APPLIED. ELEVATED. PT TURNED AND REPOSITIONED. MITCHELL IN PLACE, DRAINING YELLOW, CONCENTRATED URINE. DISCUSSED PAIN MEDICATIONS RECIEVED WITH PT. PT UNDERSTANDING. DISCUSSED WILL TALK TO PACU TO HAVE MIXER ATTENDANT REEVALUATE PAIN REGIMEN. ORIENTED TO CALL LIGHT, IN REACH. ICE WATER GIVEN. OXYGEN APPLIED 3L NC PER JANA RT. CPOX IN PLACE.
[2024-12-06] MEDS ORDERED: ALBUTEROL SULFATE 0.083% 3 ML VIAL INH PRN (14:45)
--- NOTE | 2024-12-06 15:13 | NUR ---
UR CLINICAL REVIEW: [place], MEETS INPT FOR KNEE: AMPUTATION ABOVE OR BELOW KNEE AMPUTATION DUE TO INFECTION, IV ANTIBIOTICS, IV ANALGESICS, IV FLUIDS EOCCO INPT 12/06/24 @ 1310 ORDER MATCHES REG AUTH PENDING, WILL SEND CLINICALS VIA [employer] PLAN TO RETURN TO [facility] WHEN MEDICALLY READY 12/11/2024
[2024-12-06] MEDS ORDERED: ARIPiprazole 5 MG TAB ONE (15:26)
[2024-12-06] MEDS ORDERED: TORSEMIDE 20 MG TAB ONE (15:27)
[2024-12-06] MEDS ORDERED: FLUOXETINE HCL 20 MG CAP ONE (15:27)
[2024-12-06] MEDS ORDERED: SODIUM CHLORIDE 0.9% 20 ML IV ONE (15:34)
[2024-12-06] MEDS ORDERED: DEXAMETHASONE SOD PHOS 10 MG/ML VIAL ONE (15:35)
--- NOTE | 2024-12-06 15:43 | NUR ---
SPOKE WITH HARDIK SILVERMAN WHO DISCUSSED WITH NATALIA VALLE THAT PT IS ON PAIN. TORI WILL BE DOWN TO MMAKE PATIENT COMFORTABLE. PT WAS GIVEN 0.5MG IV DILAUDID FOR BREAKTHROUGH PAIN, 09/20 RLE.
--- NOTE | 2024-12-06 15:53 | NUR ---
12/06/24 1553 Sheets,[place] 1240 PT ARRIVED TO PACU ON 6L VIA MASK, PT SITTING IN HIGH FOWLERS AND STARTS MOANING AND REPORTS "OH I HURT." PT REPORTS 12/21 PAIN AND NAUSEA. 1243 "GET THIS OFF MY FACE," O2 REMOVED. HOB INCREASED.
[2024-12-06] MEDS ORDERED: METOCLOPRAMIDE HCL 5 MG TAB PO SCH (16:00)
--- NOTE | 2024-12-06 17:45 | NUR ---
PATIENT IN BED AT THIS TIME, ANU COWART AND FILEMON DOPCUMENTED P[ATIENTS VITALS AND I&O'S. ANU COWART EMTIOED CATH BAG, WE ASSISTED PATIENT WITH DENTURE CARE AND SET UP HER DINNER PLATE FOR HER. WILL COME BACK LATER TO CHECK WITH HER. PATIENT LEFT WITH CALL LIGHT WITHIN REACH, NO FURTHER NEEDS AT THIS TIME.
--- NOTE | 2024-12-06 18:30 | NUR ---
pt resting in bed, denies needs. call light in reach.
[2024-12-06] MEDS ORDERED: DEXTROSE 5% 1,000 ML IV PRN (19:15)
[2024-12-06] MEDS ORDERED: IBLOOD GLUCOSE TEST STRIP 1 EA TEST XX PRN (19:15)
[2024-12-06] MEDS ORDERED: DEXTROSE 50% 50 ML SYR IV PRN ×2 (19:15)
[2024-12-06] MEDS ORDERED: MELATONIN 3 MG TAB PO PRN (19:15)
[2024-12-06] MEDS ORDERED: GLUCAGON,HUMAN RECOMBINANT 1 MG/ML VIAL SUB-Q PRN (19:15)
--- NOTE | 2024-12-06 19:40 | NUR ---
REPORT RECEIVED FROM RNS NINOSKA AND ROZINA. pt RESTING IN BED AWAKE. 3L OXYGEN BY NC IN PLACE. CPOX ON, SPO2 WNL. pt DENIES PAIN, SITTING UP IN BED WATCHING TV. RLE ELEVATED WITH ICE PACKS IN PLACE. CALL LIGHT IN REACH. IV SITE ASSESSED, INFUSING WNL.
[2024-12-06] MEDS ORDERED: BUDESONIDE 0.5 MG/2 ML VIAL INH SCH ×2 (20:00→21:00)
[2024-12-06] MEDS ORDERED: IPRATROPIUM BROMIDE 2.5 ML VIAL INH SCH (20:00)
[2024-12-06] MEDS ORDERED: ARFORMOTEROL TARTRATE 15 MCG/2 ML VIAL INH SCH (20:00)
[2024-12-06] MEDS ORDERED: IBLOOD GLUCOSE TEST STRIP 1 EA TEST VI SCH (21:00)
[2024-12-06] MEDS ORDERED: INSULIN LISPRO 100 UNIT/ML ML SUB-Q SCH (21:00)
[2024-12-06] MEDS ORDERED: FAMOTIDINE 20 MG/ 2 ML VIAL IV SCH (21:00)
[2024-12-06] MEDS ORDERED: GABAPENTIN 300 MG CAP PO SCH (21:00)
[2024-12-06] MEDS ORDERED: FAMOTIDINE 20 MG TAB PO SCH (21:00)
--- NOTE | 2024-12-06 21:00 | NUR ---
GOT PT FRESH ICE PACKS. TOOK OUT TRASH AND CLEANED UP ROOM. EMPTIED MITCHELL AND DOCUMENTED I/O'S. GOT PT FRESH ICE WATER. PT WATCHING TV AND FALLING ASLEEP. PT REPORTED NEEDING NOTHING MORE AT THIS TIME.
--- NOTE | 2024-12-06 21:49 | NUR ---
SR. PAYROLL MANAGER REPOSITIONED PT FOR COMFORT WITH A PILLOW UNDER RIGHT SIDE.
--- NOTE | 2024-12-06 22:00 | NUR ---
pt AWAKE RESTING IN BED. SCHEDULED MEDICATIONS ADMINISTERED. DRESSING CDI. pt DENIES ANY PAIN. NEW ICE PACKS UNDER RLE TO ELEVATE. IV SITE FLUSHED WNL. IV ANTIBIOTIC ADMINISTERED. PO SNACK AND DIET SPRITE PROVIDED. CALL LIGHT IN REACH.
[2024-12-07] VITALS (10 sets, daily range): BP systolic 112–145; BP diastolic 44–74
--- NOTE | 2024-12-07 00:27 | NUR ---
ROUNDED ON pt. RESTING IN BED WITH EYES CLOSED. BREATHING EQUAL AND UNLABORED. SPO2 WNL WITH 3L OXYGEN BY NC IN PLACE. NO DISTRESS NOTED.
--- NOTE | 2024-12-07 00:55 | NUR ---
Pt report received from HARDIK De La Cruz. Pt is awake, but sleepy, resting supine in bed, watching television. VS obtained at this time, fresh ice pack provided for underneath the operated extremity and noted a small amount of blood on the ice pack and dressing. Bed positioned to elevate that extremity as much as possible as well. Pt denies further needs at this time. Call light in reach, side rails up x4.
[2024-12-07 05:27] LABS: BASOPHILS 0.3 % (0.1-1.2); EOSINOPHILS 0 % (0.7-5.8); LYMPHOCYTES 6.3 % (19.3-51.7); MCH 30.5 PG (25.6-32.2); MCHC 31.3 g/dL (32.2-35.5); MCV 97.5 fL (79.4-94.8); MONOCYTES 2.0 % (4.7-12.5); NEUTROPHILS 90.0 % (34.0-71.1); RBC 3.94 M/uL (3.93-5.22)
[2024-12-07 05:48] LABS: ALT (SGPT) 10.0 U/L (14-59); AST (SGOT) 11.0 U/L (15-37); GLOMERULAR FILTRATION RATE,EST 32.0 mL/min (>60); PROTEIN, TOTAL 6.7 g/dL (6.4-8.2); UREA NITROGEN 35.0 mg/dL (7-18)
--- NOTE | 2024-12-07 06:22 | NUR ---
In with pt for med administration and assessment. Pt is resting with eyes closed, snoring lightly, with brief periods of apnea. CPOX on and at bedside, sats maintained on 3lpm at about 93% during these periods of apnea. She awakens easily to voice and light touch. Pt has no c/o pain at this time. Fresh ice packs applied to the top of operated extremity as well as one underneath it. With the bed in trendelenburg (and HOB elevated to a position of comfort), light bleeding has slowed/stopped from the affected extremity. Pt denies needs at this time. Side rails up x4. Call light in reach. TV on.
--- NOTE | 2024-12-07 07:06 | NUR ---
VERBAL REPORT RECIEVED BY HARDIK GUY. PATIENT AWAKE IN BED TALKING ON THE PHONE, CALL LIGHT IN REACH. DENIES NEEDS AT THIS TIME.
--- NOTE | 2024-12-07 08:57 | NUR ---
MORNING ASSESSMENT COMPLETED. POST-OP SURGICAL SITE BLOOD NOTED ON POSTERIOR SIDE OF DRESSING, DRESSING INTACT, ICE APPLIED AND ELEVATED. PATIENT HAS NO PAIN. BLINDS OPENED, CALL LIGHT IN REACH. PATIENT SITS UP IN BED EATING BREAKFAST, AND WATCHES TV. NO FURTHER NEEDS AT THIS TIME.
[2024-12-07] MEDS ORDERED: INSULIN GLARGINE-YFGN 100 UNIT/ML ML SUB-Q SCH (09:00)
[2024-12-07] MEDS ORDERED: HYDROXYZINE HCL25 MG PO (09:25)
[2024-12-07] MEDS ORDERED: IPRAT-ALBUT 0.5-3 ML INH (09:26)
[2024-12-07] MEDS ORDERED: METOLAZONE2.5 MG PO (09:29)
[2024-12-07] MEDS ORDERED: ONDANSETRON HCL4 MG PO (09:33)
--- NOTE | 2024-12-07 09:38 | NUR ---
MED REC COMPLETE
--- NOTE | 2024-12-07 11:09 | NUR ---
INTO SEE PATIENT. PATIENT RESTING IN BED. AT BEDSIDE. 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 PATIENT USES WHEELCHAIR AT BASELINE. PATIENT HAS A CPAP BUT ONLY USES OCCASIONALLY. PATIENT STATES SHE WOULD LIKE A NEW PCP.
--- NOTE | 2024-12-07 11:09 | NUR ---
PATIENT UP IN BED, VISITOR AT BEDSIDE. PATIENT DENIES ANY NEEDS AT THIS TIME. CALL LIGHT IN REACH.
--- NOTE | 2024-12-07 11:24 | NUR ---
PATIENT IS IN HER BED AT THIS TIME, REAL ESTATE BRANCH MANAGER CHARTED VIATLS AND I&O'S, CALL LIGHT WITH IN REACH, EMPTIED CATH BAG, NOTHING ELSE NEEDED AT THIS TIME.
--- NOTE | 2024-12-07 11:33 | NUR ---
PATIENT UP IN BED, VISITOR AT BEDSIDE. TAUGHT PATIENT ON I.S. USE, PATIENT WAS ABLE TO DEMONSTRATE PROPER USE OF I.S. VERBALIZED TO USE THROUGHOUT THE DAY AT [employer] IF TV IS ON. FRESH WATER GIVEN. NO FURTHER NEEDS AT THIS TIME. CALL LIGHT IN REACH.
--- NOTE | 2024-12-07 12:26 | NUR ---
PATIENT SITTING UP IN BED EATING LUNCH, WATCHING TV. NEW ICE PACK APPLIED TO POST-OP SITE. CALL LIGHT IN REACH. NO FURTHER NEEDS AT THIS TIME.
--- NOTE | 2024-12-07 12:54 | NUR ---
APPLIED HUMIDIFICATION TO OXYGEN.
--- NOTE | 2024-12-07 15:23 | NUR ---
IN THE ROOM WITH PATIENT ABD AND CANDELARIA WRAP REINFORCED TO CURRENT POST-OP DRESSING DUE TO SHADOWING THROUGH BANDAGE, COMPLETED BY HARDIK XIAO. PATIENT TOLERATED WELL. NO FURTHER NEEDS AT THIS TIME. CALL LIGHT IN REACH.
--- NOTE | 2024-12-07 16:24 | NUR ---
PATIENT SITTING UP IN BED WATCHING TV. DENIES ANY NEED AT THIS TIME. CALL LIGHT IN REACH.
--- NOTE | 2024-12-07 17:54 | NUR ---
PATIENT IS IN BED AT THIS TIME, AGENCY APPOINTMENTS SUPERVISOR ASSISTED PATIENT IN A BED BATH, LINEN CHANGE, NEW GOWN, CHARTED VITALS AND I&O'S, EMPTIED CATH BAG, CALL LIGHT WITH IN REACH AND NOTHING ELSE NEEDED AT THIS TIME.
--- NOTE | 2024-12-07 18:08 | NUR ---
PATIENT COMPLAINS OF 5/10 RLE PAIN AND REQUESTS PAIN MEDICATION. PAIN MEDICATION PROVIDED (SEE EMAR). PATIENT SITTING UP IN BED, WATCHING TV. NO FURTHER NEEDS AT THIS TIME. CALL LIGHT IN REACH.
--- NOTE | 2024-12-07 20:35 | NUR ---
PT SITTING UP IN BED, O2 3LNC, CPOX ON AT BEDSIDE, NO C/O PAIN AT THIS TIME. DRESSING RAKA WILL BE REINFORCED. IVF INFUSING RFA. F/C PATENT. RT IN ROOM
--- NOTE | 2024-12-07 21:43 | NUR ---
ON 3LNC, CHRONIC ON LY AT HS DECLINED CPAP/BIPAP. CPOX ON AT BEDSIDE. COOPERATIVE WITH ASSESSMENTS. LUNGS CLEAR AT HIS TIME. DENIES CP OR SOB WITH EXERTION, REPOSITIONS AND TURNS SELF IN BED. IVF INFUSING W/O PROBLEMS. RAKA DRESSING REINFORCED WITH CANDELARIA WRAP IF CAME UNDONE. COOPERATIVE. F/C PATENT. RECEIVED SCHEDULED TYLENOL AND SHE USED HER DEXACON? SWQ GLUCOSE READEER ON HER L ARM. GLUCOSE READING 279, RECEIVED 9 UNITS SS INSULIN. NO FURTHER REQUESTS.
--- NOTE | 2024-12-07 22:25 | NUR ---
RESTING, EYES CLOSED, O2 3LNC, CPOX AT BEDSIDE, IVF INFUSING W/O PROBLEMS. DRESSING INTACT.
[2024-12-08] VITALS (8 sets, daily range): BP systolic 122–146; BP diastolic 50–69
--- NOTE | 2024-12-08 03:23 | NUR ---
RESTING, EYES CLOSED, O2 IN PLACE, CPOX AT BEDSIDE, IVF INFUSING, F/C PATENT. R STUMP, ELEVATED WITH PILLOWS
--- NOTE | 2024-12-08 05:46 | NUR ---
PT AWAKE, SITTING UP POSITION IN BED, ON 3LNC, CPOX AT BEDSIDE, DRINKING COFFEE AND WATCHING TV. R STUMP DRESSING IN PLACE. F/C PATENT DRAININGD DARK LIGHT TEA COLORED URINE WITH SEDIMENTS. IVF INFUSING W/O PROBLEMS, MEDICATED WITH SCHEDULED TYLENOL
--- NOTE | 2024-12-08 07:05 | NUR ---
Pt report received from HARDIK Amaral. Pt is resting in bed, eyes closed, breathing is regular, even, and she is snoring. The head of her bed is elevated to an almost sitting up position, and her chin is tucked to her chest. Her airway is patent, however. White board updated. Side rails up x4, call light in reach.
[2024-12-08] MEDS ORDERED: INSULIN GLARGINE-YFGN 100 UNIT/ML ML SUB-Q SCH ×2 (08:00→09:00)
[2024-12-08 08:18] LABS: GLOMERULAR FILTRATION RATE,EST 37.0 mL/min (>60); UREA NITROGEN 35.0 mg/dL (7-18)
--- NOTE | 2024-12-08 10:51 | NUR ---
pt resting with head up in bed. visitor in the room. pt reporting not eating breakfast. got pt fresh ice packs for leg, two. got pt fresh coffee. call light within reach, tv on. pt reports pain level high - reported to rn. pt reported needing nothing more at this time.
[2024-12-08] MEDS ORDERED: CIPROFLOXACIN 250 MG TAB PO SCH (12:45)
[2024-12-08] MEDS ORDERED: IBUPROFEN 600 MG TAB PO PRN (13:00)
--- NOTE | 2024-12-08 13:30 | NUR ---
In with pt for IV removal and Fitzgerald catheter removal per Dr. Arthur's orders. Pressure dressing applied to IV site. Purewick placed after rocco care performed.
--- NOTE | 2024-12-08 14:00 | NUR ---
In with physical therapist to lashonda pt to the chair using sling. Pt tolerated move well. Pt was premedicated shortly before this with pain meds per emar for 7 out of 10 pain in her right leg. Purewick placed and connected to continuous suction. Pt personal belongings, bedside table, and call light in reach.
--- NOTE | 2024-12-08 14:12 | NUR ---
PT IN CHAIR SO COMPLETE LINEN CHANGE WAS COMPLETED.
--- NOTE | 2024-12-08 18:07 | NUR ---
PT SITTING IN CHAIR. HER O2 WAS A LITTLE LOW, SHE REPORTED SHE WAS TOLD SHE COULD TAKE HER NC OFF WHILE SHE WAS EATING DINNER. PT ROOM HAS BEEN CLEANED BY THIS GAS ATTENDANT. PT WATCHING TV, CALL LIGHT ON LAP. GOT PT FRESH ICE WATER. PT REPORTED NEEDING NOTHING MORE AT THIS TIME.
--- NOTE | 2024-12-08 20:07 | NUR ---
Awake, in hair, lashonda lifted to bed, tolerated fair, c/o R AKA pain, dressing was off. Back to bed, medicatred with DIlaudud 2mg po. edema to R upper leg and old opticoat dressing saturated with ss drainage. reinforced with 2 abd and dia wrap , cooperative, tender area. elevated stump with pillows, declined ice. no IV site. on room air at this time. O2 cord at bedside, she uses it at HS chronic at HS. purewick in place draining clear yellow urine with sediments. pericare done. in bed sitting position watching tv.
--- NOTE | 2024-12-08 22:02 | NUR ---
Pt accidentally removed R AKA dia wrapped dressing when she was vigorously scratching her leg. acticoat dressings in place, totally satured, in place. abd changed x2, rewrapped with dia bandage, silk tape applied to edges of dressing to prevent accidental dislodgement of dressing. Dressing has been changed 3x from start of shift to now. elevated with pillows. ice applied, C?o 10/10 pain prior to starting dressing hcanges. medicated with scheduled Tylenol and Ibuprofen. Repositioned self in bed, attends in place. pure wick. Pt wearing 3L O2 NC, cpox at bedside, wnl. tolerating liquids well, has dry harsh non productive cough. denies n/v. reassured and calmed down. Cooperative
--- NOTE | 2024-12-08 23:16 | NUR ---
RESTING, CALMER, NO S/SX DISTRESS, USING O2 3LNC, CPOX AT BEDSIDE. REPOSITIONS SELF IN BED, PURE WICK IN PLACE, DRAINING YELLOW URINE WITH SEDIMENTS. DRESSING TO R STUMP CDI AT THIS TIME, WAS CHANGED 3 TIMES EARLIER THIS SHIFT. ELEVATED WITH PILLOWS, ICE TAKEN OFF BY PT
[2024-12-09] VITALS (9 sets, daily range): BP systolic 133–158; BP diastolic 50–83
--- NOTE | 2024-12-09 01:23 | NUR ---
Pt used call light. Was incontinent of large amount of urine. plus what was suctioned by pure wick. whole bed changed, large amount of urine in bedding, chux and attends. skin care done. new pure wick applied. helpdu., Once again she tore town R AKA dressing by self scratching. opsite applied to dressing saturated wtih old drainage. to prevent pt from self scratching down to sutured area. abd applied and covered with dia wrap again, elevated with pillows and ice to area. Cooperative. no further c/o pain. On 3LNC
--- NOTE | 2024-12-09 03:35 | NUR ---
Resting, eyes closed, O2 3LNC in place, cpox on at bedside, sats WNL for pt. no s/sx distress, purewick in place, draining w/o problems. Dressing R AKA in place. elevated with pillows, Pt took ice off wound area. Respositions self in bed
--- NOTE | 2024-12-09 05:33 | NUR ---
Resting, eyes closed, awakens easily, turns and repositions self in bed. purewick in place, draining small amount of urine. attends dry at this time. on 3LNC CPOX on at bedside, R GAYLAA dressing CDI, elevated with pillows. Medicated with scheduled Tylenol, coffee and fresh liquids given. watching tv
[2024-12-09 05:47] LABS: GLOMERULAR FILTRATION RATE,EST 37.0 mL/min (>60); UREA NITROGEN 35.0 mg/dL (7-18)
[2024-12-09] MEDS ORDERED: INSULIN GLARGINE-YFGN 100 UNIT/ML ML SUB-Q SCH (07:00)
--- NOTE | 2024-12-09 07:16 | NUR ---
PT SNORING LOUDLY AT TIME OF SHIFT REPORT, LEFT UNDISTURBED. SATS 94% ON 02. H20 TO BEDSIDE, READER BOARD UPDATED, ROOM PICKED UP. CALL LIGHT AND NEEDED ITEMS IN REACH
--- NOTE | 2024-12-09 08:10 | NUR ---
PT AWAKE NOW JUST OFF THE PHONE FROM . SHE REFUSES BREAKFAST STATING SHE DOESN'T EAT BREAKFAST NORMALLY. PT AGREES SHE IS COMFORTABLE, DENIES PAIN AT THIS TIME. DRINKING COFFEE AND WATCHING TV DENIES NEEDS OF
--- NOTE | 2024-12-09 08:57 | NUR ---
ASSITED PT TO CHANGE HER GOWN PERSONAL CARE ITEMS PROVIDED PT DOING ORAL CARE BRUSHING HAIR ETC.
--- NOTE | 2024-12-09 10:33 | NUR ---
PATIENT SITTING UP IN BED AT THIS TIME, VISITOR IN ROOM. VITALS AND I&O'S DONE AND CHARTED. CALL LIGHT IN REACH. NO FURTHER NEEDS AT THIS TIME.
--- NOTE | 2024-12-09 11:10 | NUR ---
P/T IN WORKING WITH PT. TRANSFER VIA JESU TO CHAIR AND DOES EXERCIZES THEN JESU BACK TO BED WHERE PURWIK IS CHANGED AND PT POSITIONED FOR COMFORT
--- NOTE | 2024-12-09 11:33 | NUR ---
P/T WELL TOLERATED THOUGH PT DOES REPORT INCREASED DISCOMFORT, MEDICATED PER MAR. PULLED IV DILAUDID THEN WASTED IT DUE TO P/O BEING AVAILABLE. PT REMAINS UP IN THE CHAIR IS PRESENT
--- NOTE | 2024-12-09 11:57 | NUR ---
PT AGREES PAIN MED WAS EFFECTIVE AND SHE IS COMFORTABLE IN THE CHAIR AT THIS TIME. NOON MEAL SERVED. CALL LIGHT IN LAP
--- NOTE | 2024-12-09 13:27 | NUR ---
PATIENT SITTING UP IN CHAIR AT THIS TIME. VITALS AND I&O'S DONE AND CHARTED. FRESH WATER GIVEN. CALL LIGHT IN REACH. NO FURTHER NEEDS AT THIS TIME.
--- NOTE | 2024-12-09 13:51 | OR ---
[facility] [address] [place], [place] [address] Signed DATE OF OPERATION: 12/06/2024 SURGEON: Nupur Ewing MD PREOPERATIVE DIAGNOSES: 1. Chronic progressive right osteomyelitis, tibia and fibula. 2. History of right below-knee amputation. 3. Distant history of LEFT above-knee amputation. 4. Multiple medical problems including morbid obesity, diabetes mellitus, and arterial insufficiency. PROCEDURE: Right above-knee amputation. ANESTHESIA: General endotracheal, Daniele Yip CRNA INDICATION: This morbidly obese 59-year-old white woman has undergone left above-knee amputation in the distant past and was found to have chronic osteomyelitis of the foot and ankle area undergoing right below-knee amputation by me greater than a year ago. She developed cellulitic changes and wound infection, ultimately having dehiscence of the wound requiring wound VAC therapy. As things were healing, she fell out of her wheelchair and fractured her tibia and fibula providing a large setback to her progress. Overtime, she has been found by MRI criteria clinical evidence to have osteomyelitis of the right tibial stump and portion of fibula. She was at one time identified as having Proteus mirabilis as part of the problem. She does have underlying diabetes and vascular insufficiency. At this point, right above-knee amputation is deemed most advisable as she continues to have evidence of osteomyelitis and progression beyond this is a high hazard. The risk of amputation including, but not limited to bleeding, infection, wound failure, and other unforeseen complications was reviewed in detail with her. She understands and wished to proceed. FINDINGS: The soft tissue above the knee appeared reasonably good. The distal stump somewhat chronically inflamed, but no actual acute cellulitic change. A previous right medial thigh abscess area that had been drained by me several months ago was well healed. Amputation was taken above the knee, which showed viable tissue but poor common femoral artery flow. Her extreme obesity including her legs made for a bulky flap which was ultimately closed after excising approximately two more inches of bone. She tolerated Electronically Signed By: NUPUR EWING MD 12/09/24 1351 PATIENT NAME: LINH PEDRAZA OPERATIVE REPORT DATE OF : 65 REPORT #: [id number] PHYSICIAN: NUPUR EWING MD PCP: ALFREDA TAVERAS MD REPORT IS CONFIDENTIAL AND NOT TO BE RELEASED WITHOUT AUTHORIZATION [facility] [address] [place], [place] [address] Signed the procedure well. Blood loss in aggregate was 200 mL. DESCRIPTION OF PROCEDURE: The patient was brought to the operating room and given a general endotracheal anesthetic. A Fitzgerald catheter was placed which showed turbid urine. This was sent for urinalysis. Preoperative antibiotic Ancef had been given. The leg was prepared with a chlorhexidine solution and draped sterilely, noting an area of persistent drainage in the inferior aspect of the right below-knee stump. This was covered with a small OpSite. After sterile preparation, area for a fishmouth type incision was delineated. An incision was made with a 15 blade and matured with cautery. Dissection was carried through the subcutaneous tissue which was impressively thick. The small blood vessels were cauterized as appropriate. Avoidance of undercutting on the flap was maintained. The greater saphenous vein was encountered and was secured with hemostats and ligated with 0 silk ties. Dissection was carried more fully both laterally and medially through the muscular layers primarily with electrocautery. Ultimately, the femoral artery and vein were identified, dissected free and ligated with 0 silk ties doubly applied to the artery. A sciatic nerve was identified and gently ligated and transected allowing for retraction. The femur was identified and periosteum gently dissected back with a periosteal elevator. Using an oscillating saw, the femur was transected transversely. The flaps were extended to allow for closure. There was found to be somewhat under tension and on that basis, the closure of the flaps was released and the periosteum withdrawn approximately 1.5 to 2 inches and additional transection of femur undertaken. This allowed for closure of the fascial layers. A drain was not placed as hemostasis had been assured with electrocautery dominantly. The skin was then closed with clipping device and an Acticoat silver impregnated sponge dressing applied to the incision as well as a Kerlix and Hawk wrap. The patient was ultimately extubated and transferred to the recovery room in good condition having suffered no complication. Blood loss was estimated at 200 mL in aggregate. Sponge, needle, and instrument counts reported as correct x3. MD DB Urias/LIBRADOL /[id number] cc: Dr. Alfreda Taveras Electronically Signed By: NUPUR EWING MD 12/09/24 1351 PATIENT NAME: LINH PEDRAZA OPERATIVE REPORT DATE OF : 65 REPORT #: [id number] PHYSICIAN: NUPUR EWING MD PCP: ALFREDA TAVERAS MD REPORT IS CONFIDENTIAL AND NOT TO BE RELEASED WITHOUT AUTHORIZATION [facility] [address] [facility], [place] [address] Signed Copies: ~ Electronically Signed By: NUPUR EWING MD 12/09/24 1351 PATIENT NAME: LINH PEDRAZA OPERATIVE REPORT DATE OF : 65 REPORT #: [id number] PHYSICIAN: NUPUR EWING MD PCP: ALFREDA TAVERAS MD REPORT IS CONFIDENTIAL AND NOT TO BE RELEASED WITHOUT AUTHORIZATION
--- NOTE | 2024-12-09 14:33 | NUR ---
PT CONTINUES UP IN THE CHAIR IS PRESENT. SHE REPORTS HER LEG IS HURTING AGAIN IBUPROFEN ADMINISTERED. REVIEWED WHEN WHAT PAIN MEDS ARE AVAILABLE PT AGREES TO NOTIFY THIS FILLING HAND IF IBPROFEN ISN'T EFFECTIVE.
--- NOTE | 2024-12-09 14:38 | NUR ---
DR EWING IN EARLIER CHANGES DRESSING TO RLE. DISCUSSES POSSIBLE DC TOMORROW
--- NOTE | 2024-12-09 15:17 | NUR ---
CHECKING BACK WITH PT R/T PAIN SHE DESCRIBES RLE THROBBING. DILAUDID ADMINISTERED. PT CONTINUES UP IN THE CHAIR AT THIS TIME PURWIK IN PLACE. WATCHING TV DENIES NEEDS OF
--- NOTE | 2024-12-09 16:56 | NUR ---
PT HAS BEEN UP IN THE CHAIR THIS ENTIRE SHIFT. JESU BACK TO BED AT THIS TIME UNDERGARMENT AND PURWIK CHANGED. EVENING MEAL ARRIVES PT SITTING UPRIGHT IN BED EATING CALL LIGHT IN LAP
--- NOTE | 2024-12-09 17:44 | NUR ---
PATIENT SITTING UP IN BED AT THIS TIME. VITALS AND I&O'S DONE AND CHARTED. CALL LIGHT IN REACH. NO FURTHER NEEDS AT THIS TIME.
--- NOTE | 2024-12-09 20:03 | NUR ---
awake, alert and oriented to all. O2 3LNC in place, CPOX on at bedside, Watching tv, Cooperative with vitals and assessments. No IV site. R AKA dressing in place, stump covered with dia wrap. elevated in pillows. Purewick in place. attends dry, fresh water given. Pt has Dexicom SQ MARIZOL.
--- NOTE | 2024-12-09 21:59 | NUR ---
RESTING, EYES CLOSED, HOB ELEVATED, O2 3LNC ON, CPOX ON AT BEDSIDE PUREWICK IN PLACE, ATTENDS DRY, R STUMP ELEVATED WITH PILLOWS, DECLINED ICE EARLIER
--- NOTE | 2024-12-10 02:46 | NUR ---
Resting, eyes closed, O2 3LNC in place, cpox at bedside, sats 94%. purewick in place, patent, dressing to R AKA in place
[2024-12-10 05:20] VITALS: BP 154/88
[2024-12-10 05:23] VITALS: BP 154/88
--- NOTE | 2024-12-10 05:29 | NUR ---
On 3LNC, cpox on at bedside, coop with assessments, Lungs dim at bases, no c/o sob, repositions self in bed. purewick in place draining medium yellow colored with sediments, QS. R AKA dressing has been in place all night. Pleasant and cooperative. Medicated with scheduled Tylenol
--- NOTE | 2024-12-10 07:15 | NUR ---
PT RESTING SOUNDLY AT TIME OF SHIFT REPORT, LEFT UNDISTURBED. AWAKE NOW FOR MORNING MEDS AGREES SHE IS COMFORTABLE. SATS 97% ON 02. FRESH H20 AT BEDSIDE READER BOARD COMPLETE AND ROOM CLEAN. PT DENIES NEEDS AT THIS TIME PUREWIK IN PLACE
--- NOTE | 2024-12-10 08:57 | NUR ---
PT COMPLETES BREAKFAST, PAIN MEDS ADMINISTERED WITH MEAL. PT C/O HER STUMP STARTING TO THROB. PT ACCEPTS SENNA REFUSES MIRALAX DISCUSSED BOWEL FUNCTION AND OPIATE SIDE EFFECTS WITH HER SHE VERBALIZES UNDERSTANDING BUT CONTINUES TO REFUSE MIRALAX. RESTING NOW EYES CLOSED [address] SATS 96% ON 3 L
[2024-12-10] MEDS ORDERED: SENNOSIDES/DOCUSATE 1 EA TAB PO SCH (09:00)
[2024-12-10] MEDS ORDERED: POLYETHYLENE GLYCOL 3350 1 PACKET PO SCH (09:00)
[2024-12-10 09:18] VITALS: BP 136/71
--- NOTE | 2024-12-10 09:22 | NUR ---
PATIENT TO GO BACK TO [facility] TODAY.
--- NOTE | 2024-12-10 10:37 | NUR ---
PT NOTIFIED SHE WILL DC AT 1130. NO SL PRESENT TO BE DC'D. PT STATES HER ONLY CONCERN R/T DC IS GETTING TO THE TOILET. PT HAS PREVIOUSLY USED A SLIDER BOARD AND WILL CONTINUE TO DO SO. PT DENIES OTHER CONCERNS OR QUESTIONS
[2024-12-10 10:41] VITALS: BP 136/71
--- NOTE | 2024-12-10 11:01 | NUR ---
ORDERS COMPLETED, WC VAN ABLE TO PICK PATIENT UP AT 11:30 WC IN ROOM. FACILITY AWARE NO FUTHER NEEDS.
[2024-12-10 11:03] VITALS: BP 150/87
--- NOTE | 2024-12-10 11:35 | NUR ---
CANDELARIA WRAP DISLODGED FROM RLE REAPPLIED PER DR EWING INSTRUCTIONS YESTERDAY SNUG NOT TIGHT. REPORT CALLED TO ACOSTA AT [facility] ALL QUESTIONS ANSWERED LAST MEDS ADMINISTERED REPORTED WITH TIME OF DOSE. PT DENIES QUESTIONS PREPARED FOR TRANSPORT. ALL PERSONAL ITEMS GATHERED INCLUDING PHONE, COPY AND PRINT ASSOCIATE, CLOTHING, W/C AND BACK PACK
[2024-12-10] MEDS ORDERED: CIPRO500 MG PO (12:49)
--- NOTE | 2024-12-10 16:24 | NUR ---
Wound orders and DC summary faxed to [facility].
--- NOTE | 2024-12-11 15:55 | DS ---
[facility] [address] [place], [place] [address] Signed ADMISSION DATE: 12/06/2024 DISCHARGE DATE: 12/10/2024 REASON FOR ADMISSION: Persistent right fibular and tibial osteomyelitis for above-knee amputation. HISTORY: This 59-year-old morbidly obese white woman has underlying medical problems of obesity, diabetes mellitus, and history of peripheral vascular disease. She underwent a right below-knee amputation by me nearly a year ago. She did have wound dehiscence requiring prolonged wound care, subsequently falling out of her wheelchair and custodial, suffering fracture of the tibia and fibula and with the MRI findings of persistent osteomyelitis. Various regimens of antibiotics have been employed without apparent benefit. She has been recommended to have above-knee amputation. Quite notably, she has had above-knee amputation on the left side in the past for similar reasons. She is admitted for that purpose. PERTINENT PHYSICAL EXAMINATION: GENERAL: Showed a morbidly obese white woman who does not look acutely toxic. CHEST: Clear. HEART: Regular without murmur. ABDOMEN: Massively obese. Her left mid leg stump is well healed. EXTREMITIES: The right leg shows the stump with a draining sinus in the distal portion and chronic dermatitis of the skin below the knee. The area above the knee is completely healthy and well vascularized. In recent (two months ago+) drainage of a medial thigh abscess is well healed. HOSPITAL COURSE: She was taken to operation for a right above-knee amputation on December 06, 2024. Upon placement of Fitzgerald catheter she was noted to have infected looking urine. Preop antibiotic Ancef had been given, but was changed to meropenem postoperatively for empiric coverage of her urinary pathogens which were suspected based on a Gram stain that showed gram-negative rods. Above-knee amputation went without complication. Postoperatively, she was monitored where she had significant pain initially which quickly abated. She was changed to oral antibiotics Cipro and ultimately was found to have Klebsiella as a pathogen of her urinary tract. She had progressive improvement. The wound has been evaluated showing good healing. No sign of inflammation, edema, or Electronically Signed By: NUPUR EWING MD 12/11/24 1555 PATIENT NAME: LINH PEDRAZA DISCHARGE SUMMARY DATE OF : 65 REPORT #: [id number] PHYSICIAN: NUPUR EWING MD PCP: ALFREDA TAVERAS MD REPORT IS CONFIDENTIAL AND NOT TO BE RELEASED WITHOUT AUTHORIZATION [facility] [address] [place], [place] [address] Signed drainage. Kirk were left in place. Acticoat dressings had been applied postoperatively initially and replaced the day prior to discharge. It is anticipated she will have a full seven days more of antibiotics Cipro in treatment of her urinary tract infection. DISCHARGE MEDICATIONS: 1. Will largely include those that she had before with the addition of Cipro 500 mg p.o. b.i.d. #14. Discharge medications will additionally include aripiprazole 2 mg p.o. daily for bipolar disorder. 2. Carvedilol 6.25 mg tablets one p.o. b.i.d. 3. Fluoxetine 10 mg p.o. daily. 4. Albuterol inhaler two puffs q.4 hours as needed for pulmonary issues. 5. Potassium chloride 20 mEq p.o. b.i.d. 6. Insulin glargine 50 units subcu at bedtime. 7. Vitamin D2 1250 one cap p.o. monthly. 8. Gabapentin 300 mg p.o. b.i.d. 9. Dulcolax suppository 10 mg as needed for constipation. 10. Dapagliflozin 10 mg p.o. daily for diabetes. 11. Reglan 5 mg three tabs p.o. t.i.d. before meals for gastroparesis. 12. Hydralazine 25 mg as needed for hypertension, systolic pressure greater than 160. 13. Tylenol 650 mg p.o. q.6 hours as needed for pain. 14. Hydromorphone 2 mg q.4 hours as needed for pain. 15. Fleets Phospho-Soda enema as needed for constipation. 16. Magnesium hydroxide 30 mg as needed for constipation. 17. MiraLAX 17 g daily as needed for constipation. 18. Tiotropium bromide 18 mcg cap p.o. daily. 19. Torsemide 20 mg four tabs p.o. b.i.d. for heart failure/edema. 20. Senna tablets 8.6 mg p.o. daily for bowel care. 21. Lispro insulin 0 to 10 units sliding scale as needed. 22. Atorvastatin 40 mg p.o. at bedtime. 23. Vitamin C 500 mg daily. 24. Loperamide 2 mg as needed for diarrhea. 25. Budesonide pulmonary inhaler 0.5 mg b.i.d. 26. Trulicity 1.5 mg weekly for diabetes. 27. Metaxalone 2.5 mg daily for 5 pounds weight gain. 28. Zofran tablets 4 mg q.6 as needed for nausea, vomiting. DISCHARGE DIAGNOSES: 1. Chronic persistent osteomyelitis, right lower extremity in BKA stump of fibula and tibia, status post right above-knee amputation. 2. Diabetes mellitus. 3. Peripheral vascular disease. Electronically Signed By: NUPUR EWING MD 12/11/24 7811 PATIENT NAME: LINH PEDRAZA DISCHARGE SUMMARY DATE OF : 65 REPORT #: [id number] PHYSICIAN: NUPUR EWING MD PCP: ALFREDA TAVERAS MD REPORT IS CONFIDENTIAL AND NOT TO BE RELEASED WITHOUT AUTHORIZATION [facility] [address] [facility] [place] [address] Signed 4. Hypertension. 5. Chronic obstructive pulmonary disease. MD DB Urias/MODL /[id number] cc: Dr. Alfreda Taveras [facility] Copies: ~ Electronically Signed By: NUPUR EWING MD 12/11/24 1555 PATIENT NAME: LINH PEDRAZA DISCHARGE SUMMARY DATE OF : 65 REPORT #: [id number] PHYSICIAN: NUPUR EWING MD PCP: ALFREDA TAVERAS MD REPORT IS CONFIDENTIAL AND NOT TO BE RELEASED WITHOUT AUTHORIZATION
== END 2024-12-10 11:40 | disposition home or self-care (01) | DRG 474 ==
LOC: MS 09-04 07:30 → DSVR 12-06 07:52 → MS 12-06 14:30
PROVIDERS: Student in an Organized Health Care Education/Training Program; ADMIT Surgery; ATTEND Surgery
PROC: 0T9B70Z Drainage of Bladder with Drainage Device, Via Natural or Artificial Opening (ICD-10-PCS; 2024-12-06)
PROC: 3E03329 Introduction of Other Anti-infective into Peripheral Vein, Percutaneous Approach (ICD-10-PCS; 2024-12-06)
PROC: 5A09357 Assistance with Respiratory Ventilation, Less than 24 Consecutive Hours, Continuous Positive Airway Pressure (ICD-10-PCS; 2024-12-06)
PROC: 0Y6C0Z3 Detachment at Right Upper Leg, Low, Open Approach (ICD-10-PCS; principal; 2024-12-06 08:30)
DX: T87.43 Infection of amputation stump, right lower extremity (principal); J96.01 Acute respiratory failure with hypoxia; M86.661 Other chronic osteomyelitis, right tibia and fibula; N39.0 Urinary tract infection, site not specified; Z68.44 Body mass index [BMI] 60.0-69.9, adult; E11.69 Type 2 diabetes mellitus with other specified complication; E66.01 Morbid (severe) obesity due to excess calories; E11.51 Type 2 diabetes mellitus with diabetic peripheral angiopathy without gangrene; B96.1 Klebsiella pneumoniae [K. pneumoniae] as the cause of diseases classified elsewhere; I50.9 Heart failure, unspecified; I11.0 Hypertensive heart disease with heart failure; E78.5 Hyperlipidemia, unspecified; Y83.5 Amputation of limb(s) as the cause of abnormal reaction of the patient, or of later complication, without mention of misadventure at the time of the procedure; J44.9 Chronic obstructive pulmonary disease, unspecified; Z89.511 Acquired absence of right leg below knee; Z89.612 Acquired absence of left leg above knee; Z88.5 Allergy status to narcotic agent; Z88.8 Allergy status to other drugs, medicaments and biological substances; Z88.0 Allergy status to penicillin; Z88.1 Allergy status to other antibiotic agents; Z88.2 Allergy status to sulfonamides; Z79.51 Long term (current) use of inhaled steroids; Z79.85 Long-term (current) use of injectable non-insulin antidiabetic drugs; Z79.4 Long term (current) use of insulin
CPT/HCPCS: 01232; 36415; 71045; 80048; 80053; 81001; 85025; 87077; 87088; 87186; 88307; 88309; 94640; 94660; 94762; 94799; 97110; 97161; A9270; J0131; J0330; J0360; J0688; J1100; J1171; J1644; J1815; J1885; J2003; J2185; J2405; J2704; J2795; J3010; J3490; J7121; J7605

== ENCOUNTER 2024-09-24 16:04 | Emergency (ER) | payer OTHER ==
[~2024-09-24] VITALS: Ht 142.2 cm; Wt 133.0 kg
[~2024-09-24 16:04] MED LIST changes: +ADMELOG100 UNIT/1 SQ; -ADMELOG100 UNIT/1 SUB-Q; +ALBUTEROL2.5 MG/3 M INH; -ALBUTEROL2.5 MG/3 M NEB; -ARTHRITIS PAIN650 MG PO; -FLUOXETINE HCL10 M1 PO; -KLOR-CON M2020 MEQ PO; +TYLENOL EXTRA500 MG PO
[2024-09-24] MEDS ORDERED: ASPIRIN 81 MG CHEW PO ONE (16:15)
[2024-09-24 16:34] LABS: BASOPHILS 1.0 % (0.1-1.2); EOSINOPHILS 3.0 % (0.7-5.8); LYMPHOCYTES 21.2 % (19.3-51.7); MCH 31.8 PG (25.6-32.2); MCHC 32.1 g/dL (32.2-35.5); MCV 99.0 fL (79.4-94.8); MONOCYTES 7.4 % (4.7-12.5); NEUTROPHILS 64.7 % (34.0-71.1); RBC 3.84 M/uL (3.93-5.22)
[2024-09-24 16:53] LABS: ALT (SGPT) 21.0 U/L (14-59); AST (SGOT) 12.0 U/L (15-37); GLOMERULAR FILTRATION RATE,EST 28.0 mL/min (>60); PROTEIN, TOTAL 6.6 g/dL (6.4-8.2); UREA NITROGEN 40.0 mg/dL (7-18)
[2024-09-24 20:35] VITALS: BP 147/78
--- NOTE | 2024-09-25 10:55 | EKG ---
[facility] [address] [facility] [place] [address] Signed Sinus rhythm with frequent premature ventricular complexes Left axis deviation Left bundle branch block Abnormal ECG When compared with ECG of 24-APR-2024 13:01, premature ventricular complexes are now present Confirmed by Jatin Oro DO ([id number]) on 09/25/2024 10:54:58 AM Electronically Signed By: JATIN ORO DO 09/25/24 1055 PATIENT NAME: LINH PEDRAZA CHARLES Electrocardiogram DATE OF : 65 PHYSICIAN: JATIN ORO DO REPORT #: [id number] REPORT IS CONFIDENTIAL AND NOT TO BE RELEASED WITHOUT AUTHORIZATION
== END 2024-09-24 18:30 | disposition home or self-care (01) ==
LOC: ED 16:04
PROVIDERS: Emergency Medicine
DX: R07.9 Chest pain, unspecified (principal); E11.40 Type 2 diabetes mellitus with diabetic neuropathy, unspecified; E78.5 Hyperlipidemia, unspecified; I13.0 Hypertensive heart and chronic kidney disease with heart failure and stage 1 through stage 4 chronic kidney disease, or unspecified chronic kidney disease; E11.22 Type 2 diabetes mellitus with diabetic chronic kidney disease; I50.9 Heart failure, unspecified; N18.30 Chronic kidney disease, stage 3 unspecified; Z79.899 Other long term (current) drug therapy; Z79.4 Long term (current) use of insulin; Z88.5 Allergy status to narcotic agent; Z88.0 Allergy status to penicillin; Z88.1 Allergy status to other antibiotic agents; Z88.8 Allergy status to other drugs, medicaments and biological substances; Z87.891 Personal history of nicotine dependence
CPT/HCPCS: 36415; 71045; 80053; 83735; 84484; 85025; 93005; 93010; 99285-25; A9270